=== PATIENT | female | born 1970 | race Caucasian/White ===

== ENCOUNTER 2019-05-17 09:15 | Outpatient (CLI) | payer BC, MEDICAID, SELFPAY ==
[2019-05-17 10:25] LABS: Albumin Level 4.4 g/dL (3.5-5.1); Blood Urea Nitrogen 7 mg/dL (7-17); Calcium 9.2 mg/dL (8.4-10.2); Carbon Dioxide 22 mmol/L (22-30); Chloride 113 mmol/L (98-107); Estimated Glomerular Filt Rate > 60; Glucose 90 mg/dL (65-105); Phosphorus 3.1 mg/dL (2.5-4.5); Potassium 3.9 mmol/L (3.4-5.0); Sodium 141 mmol/L (137-145)
[2019-05-17 10:34] LABS: Parathyroid Intact 88.2 pg/mL (7.5-53.5)
[2019-05-17 10:53] LABS: Vitamin D 25 Hydroxy 20.6 ng/mL
[2019-05-17 11:22] LABS: Folic Acid 5.5 ng/mL (2.76->20)
== END 2019-05-17 09:16 | disposition home or self-care (01) ==
PROVIDERS: PCP Physician Assistant; Visit Provider Internal Medicine Endocrinology, Diabetes & Metabolism
DX: E55.9 Vitamin D deficiency, unspecified (principal); M85.80 Other specified disorders of bone density and structure, unspecified site; K21.9 Gastro-esophageal reflux disease without esophagitis; K86.1 Other chronic pancreatitis; K59.8 Other specified functional intestinal disorders; F50.02 Anorexia nervosa, binge eating/purging type
CPT/HCPCS: 36415; 80069; 82306; 82607; 82728; 82746; 83970

== ENCOUNTER 2019-05-26 00:32 | Day surgery (SDC) | payer BC, MEDICAID, SELFPAY ==
[2019-05-21 13:58] VITALS: BMI 28.5
[2019-05-26 12:12] VITALS: BP 90/64; PULSE 64; RESP 16; TEMP 36.3; O2SAT 97
[2019-05-26] MEDS: LACTATED RINGERS 1,000 ML 150 ML IV CONT (12:17)
--- NOTE | 2019-05-26 12:55 | WPDANESEPPF ---
Anes - Initial Pre Proc Eval Procedure: Operation Date: 05/26/19 13:00 Proposed Procedures p Esophagogastroduodenoscopy - Rolando Julian DO Date/Time: 05/26/19 12:55 Surgeon: Rolando Julian DO Pre Op Diagnosis: GERD Patient Data Age: 48 Gender: F Height: 5 ft 3 in Weight: 73.6 kg Last Vital Signs Temp 97.3 F L 05/26/19 12:12 Pulse 64 05/26/19 12:12 Resp 16 05/26/19 12:12 BP 90/64 L 05/26/19 12:12 Pulse Ox 97 05/26/19 12:12 Allergies Allergy/AdvReac Type Severity Reaction Status Date / Time aspirin Allergy Unknown Rash Verified 05/26/19 12:21 azelastine Allergy Unknown Itching Verified 05/26/19 12:21 ceftriaxone Allergy Unknown Rash Verified 05/26/19 12:21 diclofenac Allergy Unknown Rash Verified 05/26/19 12:22 Iodinated Contrast Media Allergy Unknown Hives Verified 05/26/19 12:24 iodine Allergy Unknown Hives Verified 05/26/19 12:24 ioversol Allergy Unknown Hives Verified 05/26/19 12:24 meperidine Allergy Unknown Rash Verified 05/26/19 12:25 nitrofurantoin Allergy Unknown Rash Verified 05/26/19 12:26 silicone Allergy Unknown Rash Verified 05/26/19 12:26 Home Medications Medication Instructions Recorded Confirmed Type acyclovir 800 mg tablet 800 mg PO BID 01/17/19 05/26/19 History albuterol sulfate 90 mcg/actuation 1 puff INHALATION Q4H PRN 01/17/19 05/26/19 History aerosol inhaler calcium carbonate 500 mg (1,250 1 tablet PO DAILY 01/17/19 05/26/19 History mg)-vitamin D3 200 unit tablet cetirizine 10 mg tablet 10 mg PO DAILY 01/17/19 05/26/19 History cholecalciferol (vitamin D3) 50 2,000 unit PO DAILY 01/17/19 05/26/19 History mcg (2,000 unit) capsule clonazepam 0.5 mg tablet 0.5 mg PO DAILY 01/17/19 05/26/19 History dicyclomine 20 mg tablet 20 mg PO QID 01/17/19 05/26/19 History docusate sodium 100 mg capsule 100 mg PO DAILY 01/17/19 05/26/19 History ergocalciferol (vitamin D2) 1,250 50,000 unit PO WEEKLY 01/17/19 05/26/19 History mcg (50,000 unit) capsule estradiol 0.1 mg/24 hr semiweekly 1 patch TRANSDERM 2XW 01/17/19 05/26/19 History transdermal patch fluticasone propionate 50 2 spray NASAL DAILY 01/17/19 05/26/19 History mcg/actuation nasal spray,suspension lamotrigine 200 mg tablet 200 mg PO BID 01/17/19 05/26/19 History lansoprazole 30 mg capsule,delayed 30 mg PO DAILY 01/17/19 05/26/19 History release lifitegrast 5 % eye drops in a 1 drop EACH EYE Q12H 01/17/19 05/26/19 History dropperette linaclotide 290 mcg capsule 290 mcg PO QAM 01/17/19 05/26/19 History ntjjli-ddwyvryp-pneloih 2 cap PO TID cap 01/17/19 05/26/19 History 10,000-32,000-42,000 unit capsule,delayed rel melatonin 10 mg capsule 10 mg PO DAILY cap 01/17/19 05/26/19 History metoclopramide HCl 5 mg/5 mL oral 10 mg PO DAILY ml 01/17/19 05/26/19 History solution nystatin-triamcinolone 100,000 1 applic TOPICAL BID 01/17/19 05/26/19 History unit/g-0.1 % topical cream promethazine 12.5 mg tablet 12.5 mg PO QID 01/17/19 05/26/19 History sucralfate 1 gram tablet 1 gm PO BID tablet 01/17/19 05/26/19 History tamsulosin 0.4 mg capsule 0.4 mg PO DAILY 01/17/19 05/26/19 History topiramate 50 mg tablet 100 mg PO BID 01/17/19 05/26/19 History trazodone 100 mg tablet 100 mg PO BID 01/17/19 05/26/19 History trimethoprim 100 mg tablet 100 mg PO DAILY 01/17/19 05/26/19 History venlafaxine 75 mg tablet,extended 75 mg PO DAILY 01/17/19 05/26/19 History release 24 hr vit C 250 mg-E 200 unit-zinc 40 1 tablet PO BID 01/17/19 05/26/19 History mg-copper 1 mf-hzsaic-jbcgyf capsule tolnaftate 1 % topical powder 1 applic TOPICAL BID #45 gm 02/10/19 05/26/19 Rx ezetimibe 10 mg tablet 10 mg PO DAILY #90 tablet 02/24/19 05/26/19 Rx rosuvastatin 40 mg tablet 40 mg PO DAILY #90 tablet 02/24/19 05/26/19 Rx aripiprazole 10 mg tablet 10 mg PO DAILY 04/28/19 05/26/19 History fludrocortisone 0.1 mg tablet 0.1 mg PO BID #60 tablet 05/19/19 05/26/19 Rx olopatadine [Patanol] 1 drp OPHTHALMIC (EYE) BID
--- NOTE | 2019-05-26 13:04 | PM.IMHP ---
H&P: HPI History of Present Illness Chief complaint: GERD Narrative: Joy Oliveira is a 48 year old female His complaint of dysphagia. She has a history of previous gastric ulcers disease and GERD. She has chronic abdominal pain and multiple complaints. She is here for EGD and possible dilation. [facility] Past Medical History Medical History (Updated 05/26/19 @ 12:53 by Seng Whitaker MD) Anxiety Asthma Bipolar 1 disorder Seizure Social History Social History Smoking status: Never smoker Second hand tobacco smoke exposure: No Smoking end date: 03/19/93 Alcohol intake: never Gender identity (if verbalized by the patient): Female Meds Home Medications and Allergies Home Medications Medication Instructions Recorded Confirmed Type acyclovir 800 mg tablet 800 mg PO BID 01/17/19 05/26/19 History albuterol sulfate 90 mcg/actuation 1 puff INHALATION Q4H PRN 01/17/19 05/26/19 History aerosol inhaler calcium carbonate 500 mg (1,250 1 tablet PO DAILY 01/17/19 05/26/19 History mg)-vitamin D3 200 unit tablet cetirizine 10 mg tablet 10 mg PO DAILY 01/17/19 05/26/19 History cholecalciferol (vitamin D3) 50 2,000 unit PO DAILY 01/17/19 05/26/19 History mcg (2,000 unit) capsule clonazepam 0.5 mg tablet 0.5 mg PO DAILY 01/17/19 05/26/19 History dicyclomine 20 mg tablet 20 mg PO QID 01/17/19 05/26/19 History docusate sodium 100 mg capsule 100 mg PO DAILY 01/17/19 05/26/19 History ergocalciferol (vitamin D2) 1,250 50,000 unit PO WEEKLY 01/17/19 05/26/19 History mcg (50,000 unit) capsule estradiol 0.1 mg/24 hr semiweekly 1 patch TRANSDERM 2XW 01/17/19 05/26/19 History transdermal patch fluticasone propionate 50 2 spray NASAL DAILY 01/17/19 05/26/19 History mcg/actuation nasal spray,suspension lamotrigine 200 mg tablet 200 mg PO BID 01/17/19 05/26/19 History lansoprazole 30 mg capsule,delayed 30 mg PO DAILY 01/17/19 05/26/19 History release lifitegrast 5 % eye drops in a 1 drop EACH EYE Q12H 01/17/19 05/26/19 History dropperette linaclotide 290 mcg capsule 290 mcg PO QAM 01/17/19 05/26/19 History btxlca-eqlyovvu-reglkds 2 cap PO TID cap 01/17/19 05/26/19 History 10,000-32,000-42,000 unit capsule,delayed rel melatonin 10 mg capsule 10 mg PO DAILY cap 01/17/19 05/26/19 History metoclopramide HCl 5 mg/5 mL oral 10 mg PO DAILY ml 01/17/19 05/26/19 History solution nystatin-triamcinolone 100,000 1 applic TOPICAL BID 01/17/19 05/26/19 History unit/g-0.1 % topical cream promethazine 12.5 mg tablet 12.5 mg PO QID 01/17/19 05/26/19 History sucralfate 1 gram tablet 1 gm PO BID tablet 01/17/19 05/26/19 History tamsulosin 0.4 mg capsule 0.4 mg PO DAILY 01/17/19 05/26/19 History topiramate 50 mg tablet 100 mg PO BID 01/17/19 05/26/19 History trazodone 100 mg tablet 100 mg PO BID 01/17/19 05/26/19 History trimethoprim 100 mg tablet 100 mg PO DAILY 01/17/19 05/26/19 History venlafaxine 75 mg tablet,extended 75 mg PO DAILY 01/17/19 05/26/19 History release 24 hr vit C 250 mg-E 200 unit-zinc 40 1 tablet PO BID 01/17/19 05/26/19 History mg-copper 1 sm-jrazjz-voidie capsule tolnaftate 1 % topical powder 1 applic TOPICAL BID #45 gm 02/10/19 05/26/19 Rx ezetimibe 10 mg tablet 10 mg PO DAILY #90 tablet 02/24/19 05/26/19 Rx rosuvastatin 40 mg tablet 40 mg PO DAILY #90 tablet 02/24/19 05/26/19 Rx aripiprazole 10 mg tablet 10 mg PO DAILY 04/28/19 05/26/19 History fludrocortisone 0.1 mg tablet 0.1 mg PO BID #60 tablet 05/19/19 05/26/19 Rx olopatadine [Patanol] 1 drp OPHTHALMIC (EYE) BID 05/21/19 05/26/19 History ondansetron HCl [Zofran] 8 mg PO Q8H PRN 05/21/19 05/26/19 History Allergies Allergy/AdvReac Type Severity Reaction Status Date / Time aspirin Allergy Unknown Rash Verified 05/26/19 12:21 azelastine Allergy Unknown Itching Verified 05/26/19 12:21 ceftriaxone Allergy Unknown Rash Verified 05/26/19 12:21 diclofenac Allergy Unkno
[2019-05-26 13:18] VITALS: BP 97/61; PULSE 68; RESP 21; O2SAT 94
[2019-05-26 13:28] VITALS: BP 96/55; PULSE 69; RESP 14; O2SAT 98
[2019-05-26 13:38] VITALS: BP 96/60; PULSE 59; RESP 20; O2SAT 97
--- NOTE | 2019-05-28 12:50 | CONS_ITS ---
DATE OF CONSULTATION: HISTORY OF PRESENT ILLNESS: Patient of Dr. Julian. HISTORY: This 48-year-old lady has been admitted to [facility] under the care of Dr. Rolando Julian, for the complaint of dysphagia in addition to the history of gastric ulcer, GERD, and chronic recurrent abdominal pain. The patient was here mainly for the EGD and possible dilatation. She does carry the diagnoses of anxiety, asthma, bipolar 1 disorder, and seizure disorder. MEDICATIONS: She has been taking multiple medications as outlined. ALLERGIES: IN ADDITION TO THE MULTIPLE ALLERGIES OUTLINED. PHYSICAL EXAMINATION: GENERAL: Revealed her to be awake, alert, cooperative, in no obvious acute distress. HEENT: Head normocephalic with no cranial bruit. Ear, nose, throat exam normal. NECK: Supple with no cervical bruit. No thyromegaly. No lymphadenopathy. HEART: Regular. LUNGS: Clear. ABDOMEN: Soft. NEUROLOGICAL: She is awake, alert, follows the instruction very well. Reported to me that she is blind. Pupils round, regular. Hodges of vision could not be checked. Extraocular movements are spontaneously full. There is no nystagmus. Facial sensation intact. Face symmetrical. Tongue midline. Uvula midline. Motor examination revealed her to have fairly symmetrical strength in upper and lower extremities with no evidence of drift. No evidence of increased tone and reflexes are sluggish. Plantars downgoing. PAST SURGICAL HISTORY: She has undergone multiple surgeries as outlined. PAST MEDICAL HISTORY: Has history of multiple medical problems as outlined. IMAGING DATA: She has had a head CT scan, which is negative. Chest, abdominal, and pelvic CT scan also revealed only bilateral nephrolithiasis. There is small supraumbilical fat-containing hernia. EKG with ST wave elevation. EKG with normal rhythm. Neurology consultation has been obtained for the complaint of dizziness, which she reported to me. She feels dizzy every now and then and she feels unable to maintain the balance. I will obtain the EMG nerve conduction study as an outpatient and further recommendations will be made accordingly. HELLEN BHATT M.D. FRAMING MILL OPERATOR HELPER FRAMING MILL OPERATOR HELPER D I MT: Nathan
== END 2019-05-26 13:40 | disposition home or self-care (01) ==
PROVIDERS: PCP Physician Assistant; Visit Provider Internal Medicine Gastroenterology
PROC: 0DJ08ZZ Inspection of Upper Intestinal Tract, Via Natural or Artificial Opening Endoscopic (ICD-10-PCS; CPT 43235; principal; 2019-05-26 13:00)
DX: K29.50 Unspecified chronic gastritis without bleeding (principal); R13.10 Dysphagia, unspecified; K21.9 Gastro-esophageal reflux disease without esophagitis; Z87.11 Personal history of peptic ulcer disease; J45.909 Unspecified asthma, uncomplicated; G40.909 Epilepsy, unspecified, not intractable, without status epilepticus; F31.9 Bipolar disorder, unspecified; F41.9 Anxiety disorder, unspecified; Z79.82 Long term (current) use of aspirin
CPT/HCPCS: 43239; 43450; 87081; J2704; J7120

== ENCOUNTER 2019-05-27 16:31 | Observation (INO) | payer BC, MEDICAID, SELFPAY ==
[2019-05-27] VITALS (10 sets, daily range): BP systolic 97–125; BP diastolic 55–77; PULSE 67–124; RESP 13–20; TEMP 36.8–36.9; O2SAT 96–98; BMI 29.0
--- NOTE | ~2019-05-27 | CT_ITS ---
EXAMINATION: CT brain wo con EXAM DATE: 05/27/2019 20:22 INDICATION: Dizziness. EGD yesterday. Abdominal pain. TECHNIQUE: Spiral CT of the head was performed without contrast. Axial, coronal and sagittal images were reviewed. The dose-length product (DLP) for this examination was 605.33 mGy-cm. The exposure w as tailored according to patient size, and iterative reconstruction (ASIR) was used as additional dos e reduction technique. Comparison is made to prior examination from 09/16/2014. FINDINGS: There is no acute intraparenchymal hemorrhage. No evidence of intraparenchymal brain mass lesion. No evidence of acute infarction. Please note that initial head CT has limited sensitivity f or small or acute infarctions. There is cavum vergae and cavum septum pellucidum. There is perivent ricular and subcortical hypodensity, nonspecific but probably related to small vessel ischemic diseas e. There is prominence of the sulci and ventricles related to cerebral atrophy. There is intracra nial carotid arteriosclerosis. There are no extra-axial collections. There is no mass effect or mid line shift. The orbits are unremarkable. Soft tissue is unremarkable. The visualized sinuses and m astoid air cells are well aerated. IMPRESSION: 1. No acute intracranial findings. 2. Chronic age related findings. Reviewed, dictated and finalized at location A.
--- NOTE | ~2019-05-27 | US_ITS ---
EXAMINATION: US carotid duplex BI DATE: 05/28/2019 14:45 INDICATION: Dizziness. TECHNIQUE: Grayscale, color Doppler, and pulsed Doppler images of the cervical carotid arteries were obtained. The degree of vessel stenosis is placed in one of the following categories: normal, <50%, 5 0-69%, >=70% but less than near-occlusion, near-occlusion, or total occlusion. Note that percent sten osis relative to normal distal artery lumen diameter is indirectly measured from velocity measurement s as described by Arun, et al. Radiology 2003; 229:340-346. COMPARISON: Ultrasound 09/22/2014 FINDINGS: RIGHT: The right common carotid artery (CCA) peak systolic velocity (PSV) is 114 cm/s. The right internal ca rotid artery (ICA) PSV is 93 cm/s. The right ICA end-diastolic velocity (EDV) is 29 cm/s. The right I CA/CCA PSV ratio is 0.8. Grayscale and color Doppler images yield an estimate of 0% diameter reductio n from plaque in the ICA. There is antegrade flow in the right vertebral artery. LEFT: The left CCA PSV is 97 cm/s. The left ICA PSV is 79 cm/s. The left ICA EDV is 32 cm/s. The left ICA/C CA PSV ratio is 0.8. Grayscale and color Doppler images yield an estimate of 0% diameter reduction fr om plaque in the ICA. There is antegrade flow in the left vertebral artery. IMPRESSION: 1. Normal internal carotid arteries. Reviewed, dictated and finalized at location A.
--- NOTE | ~2019-05-27 | CT_ITS ---
EXAMINATION: CT chest abdomen pelvis wo con EXAM DATE: 05/27/2019 20:22 INDICATION: Abdominal distention, pain. Had EGD yesterday. Dizziness. TECHNIQUE: Spiral CT of the chest, abdomen and pelvis was performed without contrast. Axial, wheeler l and sagittal images were reviewed. Coronal maximum intensity pixel images of chest reviewed. The dose-length product (DLP) for this examination was 1148.05 mGy-cm. The exposure was tailored accordi ng to patient size (auto mA exposure control), and iterative reconstruction (ASIR) was used as additi onal dose reduction technique. Comparison is made to prior examination from 08/31/2018. FINDINGS: CHEST: Left basilar linear atelectasis. There are no pleural or pericardial effusions. Tracheobro nchial tree is patent. There is no mediastinal, hilar or axillary lymphadenopathy. There is no pn eumothorax. Heart normal in size. No evidence of coronary arterial calcification. ABDOMEN PELVIS: Colonic interposition. The liver, spleen, adrenal glands and pancreas are unremarkab le. Gallbladder is unremarkable. No biliary obstruction. Sizable bilateral nephrolithiasis. There i s exophytic left renal fluid density lesion consistent with cyst measuring 1.3 cm. No obstructing ure teral stones. The uterus is not identified and has likely been surgically resected. The bladder is u nremarkable. There is no retroperitoneal or pelvic lymphadenopathy. Small supraumbilical fat-conta ining hernia. The appendix is not positively visualized. There is no pericecal inflammatory change to suggest appe ndicitis. The stomach and small bowel are unremarkable. There is expected amount of colonic stool. No free intraperitoneal gas. There are no osteoblastic or osteolytic lesions identified. IMPRESSION: 1. No acute intra-abdominal findings. 2. Bilateral nephrolithiasis. 3. Linear left basilar atelectasis. 4. Small supraumbilical fat-containing hernia. Reviewed, dictated and finalized at location A.
--- NOTE | ~2019-05-27 | MR_ITS ---
EXAMINATION: MR brain/brain stem wo/w con DATE: 05/28/2019 12:45 INDICATION: Dizziness. TECHNIQUE: Magnetic resonance imaging (MRI) of the brain and brainstem was performed without and with 14 mL MultiHance intravenous contrast. Sequences included sagittal and axial T1-weighted FSE, axial diffusion-weighted FS EPI, axial T2*-weighted GRE, axial T2-weighted FLAIR Propeller, and axial T2-we ighted Propeller. Postcontrast sequences included axial and coronal T1-weighted FSE. Apparent diffusi on coefficient (ADC) maps were created. COMPARISON: Brain MRI 08/28/2015 FINDINGS: There are scattered areas of nonspecific increased T2-weighted signal intensity in the cere bral white matter, which is within normal limits for the patient's age. There is no intracranial hemo rrhage, acute infarction, or abnormal intracranial mass lesion. The ventricles are normal in size. Ca vum septum pellucidum and vergae are noted. There is mild mucosal thickening in the ethmoid sinuses. The orbits are normal. The mastoid air cells are normal. IMPRESSION: 1. Normal aging brain. Reviewed, dictated and finalized at location A. IMPRESSION: 1. Normal aging brain.
--- NOTE | 2019-05-27 16:57 | ECG_ITS ---
Measurements Intervals [place] Rate: 71 P: 163 MT: 138 QRS: 123 QRSD: 94 T: 122 QT: 373 QTc: 406 Interpretive Statements SINUS RHYTHM CONSIDER LIMB LEAD REVERSAL LOW VOLTAGE- LIMB LEADS BORDERLINE ST-T WAVE ABNORMALITY- INFERIOR LEADS BASELINE ARTIFACT- I, II, III, AVR, AVL, AVF, V1 BORDERLINE ECG Electronically Signed On 05-28-2019 7:02:31 CDT by Adi Patel D.O.
[2019-05-27 17:11] LABS: Basophils Percent Auto 0.6 % (0.2-1.2); Eosinophils Absolute Auto 0.1 K/mm3 (0-0.3); Eosinophils Percent Auto 0.8 % (0-4.4); Hematocrit 47.2 % (37.0-47.0); Hemoglobin 15.3 g/dL (12.0-15.0); Immature Granulocyte Absolute 0.03 K/mm3 (0.00-0.031); Immature Granulocyte Percent A 0.4 % (0-0.5); Lymphocytes Absolute Auto 1.15 K/mm3 (0.9-3.2); Lymphocytes Percent Auto 16.2 % (18.3-44.2); Mean Corpuscular HGB Conc 32.4 g/dl (32-36); Mean Corpuscular Hemoglobin 29.4 pg (26-34); Mean Corpuscular Volume 90.6 fl (80-100); Mean Platelet Volume 9.2 fl (7.4-10.4); Monocytes Absolute Auto 0.4 K/mm3 (0.1-0.6); Monocytes Percent Auto 6.1 % (2.6-8.5); Neutrophils Absolute Auto 5.4 K/mm3 (1.3-6.7); Neutrophils Percent Auto 75.9 % (45.5-73.1); Platelet Count Result 314 k/mm3 (150-375); Red Blood Count 5.21 M/mm3 (4.2-5.4); Red Cell Distribution Width 12.7 % (11.5-14.5); White Blood Count 7.1 K/mm3 (4.5-10.0)
[2019-05-27 17:24] LABS: Blood Urea Nitrogen 5 mg/dL (7-17); Calcium 9.7 mg/dL (8.4-10.2); Carbon Dioxide 21 mmol/L (22-30); Chloride 113 mmol/L (98-107); Estimated CRCL calculation 81 ml/min; Estimated Glomerular Filt Rate > 60; Glucose 101 mg/dL (65-105); Potassium 3.9 mmol/L (3.4-5.0); Sodium 141 mmol/L (137-145)
--- NOTE | 2019-05-27 19:18 | ED.SYNCOPE ---
HPI - Syncope General Chief Complaint: Dizziness Stated Complaint: ABD PAIN, N/V S/P EGD Time Seen by Provider: 05/27/19 19:14 Source: patient and RN notes reviewed Mode of arrival: wheelchair Limitations: no limitations History of Present Illness HPI narrative: A 48 y/o female presents to the ED with no fevers, dysuria, feels clammy and mildly distended EGD by Dr. Lewis yesterday and esophageal dilation ABD pain stabbing N/V, dizziness, near syncope legally blind epigastric tenderness Related Data Home Medications Medication Instructions Recorded Confirmed acyclovir 800 mg tablet 800 mg PO BID 01/17/19 05/26/19 albuterol sulfate 90 mcg/actuation 1 puff INHALATION Q4H PRN 01/17/19 05/26/19 aerosol inhaler calcium carbonate 500 mg (1,250 1 tablet PO DAILY 01/17/19 05/26/19 mg)-vitamin D3 200 unit tablet cetirizine 10 mg tablet 10 mg PO DAILY 01/17/19 05/26/19 cholecalciferol (vitamin D3) 50 2,000 unit PO DAILY 01/17/19 05/26/19 mcg (2,000 unit) capsule clonazepam 0.5 mg tablet 0.5 mg PO DAILY 01/17/19 05/26/19 dicyclomine 20 mg tablet 20 mg PO QID 01/17/19 05/26/19 docusate sodium 100 mg capsule 100 mg PO DAILY 01/17/19 05/26/19 ergocalciferol (vitamin D2) 1,250 50,000 unit PO WEEKLY 01/17/19 05/26/19 mcg (50,000 unit) capsule estradiol 0.1 mg/24 hr semiweekly 1 patch TRANSDERM 2XW 01/17/19 05/26/19 transdermal patch fluticasone propionate 50 2 spray NASAL DAILY 01/17/19 05/26/19 mcg/actuation nasal spray,suspension lamotrigine 200 mg tablet 200 mg PO BID 01/17/19 05/26/19 lansoprazole 30 mg capsule,delayed 30 mg PO DAILY 01/17/19 05/26/19 release lifitegrast 5 % eye drops in a 1 drop EACH EYE Q12H 01/17/19 05/26/19 dropperette linaclotide 290 mcg capsule 290 mcg PO QAM 01/17/19 05/26/19 uvygai-ynbhwslx-cmjmgnx 2 cap PO TID cap 01/17/19 05/26/19 10,000-32,000-42,000 unit capsule,delayed rel melatonin 10 mg capsule 10 mg PO DAILY cap 01/17/19 05/26/19 metoclopramide HCl 5 mg/5 mL oral 10 mg PO DAILY ml 01/17/19 05/26/19 solution nystatin-triamcinolone 100,000 1 applic TOPICAL BID 01/17/19 05/26/19 unit/g-0.1 % topical cream promethazine 12.5 mg tablet 12.5 mg PO QID 01/17/19 05/26/19 sucralfate 1 gram tablet 1 gm PO BID tablet 01/17/19 05/26/19 tamsulosin 0.4 mg capsule 0.4 mg PO DAILY 01/17/19 05/26/19 topiramate 50 mg tablet 100 mg PO BID 01/17/19 05/26/19 trazodone 100 mg tablet 100 mg PO BID 01/17/19 05/26/19 trimethoprim 100 mg tablet 100 mg PO DAILY 01/17/19 05/26/19 venlafaxine 75 mg tablet,extended 75 mg PO DAILY 01/17/19 05/26/19 release 24 hr vit C 250 mg-E 200 unit-zinc 40 1 tablet PO BID 01/17/19 05/26/19 mg-copper 1 yz-prlwbv-podvcq capsule aripiprazole 10 mg tablet 10 mg PO DAILY 04/28/19 05/26/19 olopatadine [Patanol] 1 drp OPHTHALMIC (EYE) BID 05/21/19 05/26/19 ondansetron HCl [Zofran] 8 mg PO Q8H PRN 05/21/19 05/26/19 Allergies Allergy/AdvReac Type Severity Reaction Status Date / Time aspirin Allergy Unknown Rash Verified 05/26/19 12:21 azelastine Allergy Unknown Itching Verified 05/26/19 12:21 ceftriaxone Allergy Unknown Rash Verified 05/26/19 12:21 diclofenac Allergy Unknown Rash Verified 05/26/19 12:22 Iodinated Contrast Media Allergy Unknown Hives Verified 05/26/19 12:24 iodine Allergy Unknown Hives Verified 05/26/19 12:24 ioversol Allergy Unknown Hives Verified 05/26/19 12:24 meperidine Allergy Unknown Rash Verified 05/26/19 12:25 nitrofurantoin Allergy Unknown Rash Verified 05/26/19 12:26 silicone Allergy Unknown Rash Verified 05/26/19 12:26 PMFSH Past Medical History Medical History (Updated 05/26/19 @ 12:53 by Seng Whitaker MD) Anxiety Asthma Bipolar 1 disorder Seizure Social History Social History Smoking status: Never smoker Second hand tobacco smoke exposure: No Smoking end date: 03/19/93 Alcohol intake: never Gender identity (if verbalized by the patient): Fema
--- NOTE | 2019-05-27 19:24 | ED.ABDPAIN ---
HPI - Abdominal Pain General Chief Complaint: Dizziness Stated Complaint: ABD PAIN, N/V S/P EGD Time Seen by Provider: 05/27/19 19:14 Source: patient and RN notes reviewed Mode of arrival: ambulatory Limitations: no limitations History of Present Illness HPI narrative: A 48 y/o female presents to the ED with stabbing epigastric ABD pain beginning this morning and dizziness. She states that she had a EGD and esophageal dilation done here yesterday. She reports associated N/V, dizziness, ABD distention, and clamminess. She denies any fevers, chills, dysuria, numbness, CP, or SOB. Patient states that she feels that the room is spinning and has been unable to ambulate. Patient is clinically fine, but states she is typically able to ambulate independently without difficulty. Patient denies any numbness in the lower extremities. No dysuria or hematuria. No fever. MD elicited complaint: abdominal pain Pertinent past history: gastrointestinal bleeding, kidney stones and past UTI Onset (ago): hour(s) (this morning) Location: epigastric Quality: stabbing Context: confirms recent surgery/procedure Associated symptoms: nausea, vomiting and other (dizziness, ABD distention, and clamminess) Related Data Home Medications Medication Instructions Recorded Confirmed acyclovir 800 mg tablet 800 mg PO BID 01/17/19 05/26/19 albuterol sulfate 90 mcg/actuation 1 puff INHALATION Q4H PRN 01/17/19 05/26/19 aerosol inhaler calcium carbonate 500 mg (1,250 1 tablet PO DAILY 01/17/19 05/26/19 mg)-vitamin D3 200 unit tablet cetirizine 10 mg tablet 10 mg PO DAILY 01/17/19 05/26/19 cholecalciferol (vitamin D3) 50 2,000 unit PO DAILY 01/17/19 05/26/19 mcg (2,000 unit) capsule clonazepam 0.5 mg tablet 0.5 mg PO DAILY 01/17/19 05/26/19 dicyclomine 20 mg tablet 20 mg PO QID 01/17/19 05/26/19 docusate sodium 100 mg capsule 100 mg PO DAILY 01/17/19 05/26/19 ergocalciferol (vitamin D2) 1,250 50,000 unit PO WEEKLY 11/01/19 03/09/20 mcg (50,000 unit) capsule estradiol 0.1 mg/24 hr semiweekly 1 patch TRANSDERM 2XW 01/17/19 05/26/19 transdermal patch fluticasone propionate 50 2 spray NASAL DAILY 01/17/19 05/26/19 mcg/actuation nasal spray,suspension lamotrigine 200 mg tablet 200 mg PO BID 01/17/19 05/26/19 lansoprazole 30 mg capsule,delayed 30 mg PO DAILY 01/17/19 05/26/19 release lifitegrast 5 % eye drops in a 1 drop EACH EYE Q12H 01/17/19 05/26/19 dropperette linaclotide 290 mcg capsule 290 mcg PO QAM 01/17/19 05/26/19 hupglo-qqmzgahf-fluhpdp 2 cap PO TID cap 01/17/19 05/26/19 10,000-32,000-42,000 unit capsule,delayed rel melatonin 10 mg capsule 10 mg PO DAILY cap 01/17/19 05/26/19 metoclopramide HCl 5 mg/5 mL oral 10 mg PO DAILY ml 01/17/19 05/26/19 solution nystatin-triamcinolone 100,000 1 applic TOPICAL BID 01/17/19 05/26/19 unit/g-0.1 % topical cream promethazine 12.5 mg tablet 12.5 mg PO QID 01/17/19 05/26/19 sucralfate 1 gram tablet 1 gm PO BID tablet 01/17/19 05/26/19 tamsulosin 0.4 mg capsule 0.4 mg PO DAILY 01/17/19 05/26/19 topiramate 50 mg tablet 100 mg PO BID 01/17/19 05/26/19 trazodone 100 mg tablet 100 mg PO BID 01/17/19 05/26/19 trimethoprim 100 mg tablet 100 mg PO DAILY 01/17/19 05/26/19 venlafaxine 75 mg tablet,extended 75 mg PO DAILY 01/17/19 05/26/19 release 24 hr vit C 250 mg-E 200 unit-zinc 40 1 tablet PO BID 01/17/19 05/26/19 mg-copper 1 sy-szyznx-pkivhu capsule aripiprazole 10 mg tablet 10 mg PO DAILY 04/28/19 05/26/19 olopatadine [Patanol] 1 drp OPHTHALMIC (EYE) BID 05/21/19 05/26/19 ondansetron HCl [Zofran] 8 mg PO Q8H PRN 05/21/19 05/26/19 acyclovir 05/27/19 Allergies Allergy/AdvReac Type Severity Reaction Status Date / Time aspirin Allergy Unknown Rash Verified 05/27/19 20:38 azelastine Allergy Unknown Itching Verified 05/27/19 20:38 ceftriaxone Allergy Unknown Rash Verified 05/27/19 20:38 diclofenac Allergy Unknown Rash Verified 05/27/19 20:38 Iodinated Contrast Media Allergy Unknown Hives Veri
[2019-05-27] MEDS: ONDANSETRON INJ 4 MG/2 ML VIAL IV PUSH ×2 (19:53→23:12)
[2019-05-27] MEDS: MORPHINE SULFATE 4 MG/ML INJ IV PUSH ×2 (19:56→21:12)
[2019-05-27] MEDS: DEXTROSE 5%/0.45% SOD CHL 1,000 ML 100 ML IV CONT (19:57)
[2019-05-27] MEDS: SODIUM CHLORIDE 0.9% IV 1,000 ML 999 ML IV CONT (20:00)
--- NOTE | 2019-05-27 20:00 | PC.NURSE ---
tech attempted to take pt to urinate. pt dizzy and unable to walk when standing up edp notified.
[2019-05-27 20:26] LABS: INR 0.9
[2019-05-27 20:27] LABS: Partial Thromboplastin Time 27.8 SECONDS (22.3-36.8)
[2019-05-27 20:27] LABS: Troponin I < 0.012 ng/mL (0.000-0.034)
[2019-05-27] MEDS: FAMOTIDINE 20 MG/2 ML VIAL IV PUSH (20:32)
[2019-05-27] MEDS: METOCLOPRAMIDE HCL INJ 10 MG/2 ML VIAL IV PUSH (21:11)
--- NOTE | 2019-05-27 22:56 | ADMGEN ---
This patient, Joy Oliveira, was admitted to [facility] Surg Room 326-02. Patient/family oriented to hospital policies and general routines including ID bracelet, bed and alarms, visiting hours, pain management, procedures, bathroom and other care routines, personal items, smoking policy, room service/diet, and visiting hours. Valuables list has been completed. Information on how to activate the Rapid Response Team has been discussed. Patient/Family are encouraged to report perceived risks to care and to ask questions if they do not understand what they are told or what they should do.
[2019-05-28] VITALS (10 sets, daily range): BP systolic 98–120; BP diastolic 52–62; PULSE 60–94; RESP 16–18; TEMP 36.6–36.8; O2SAT 95–98
[2019-05-28] MEDS: SODIUM CHLORIDE 0.9% IV 1,000 ML 125 ML IV CONT (02:08)
[2019-05-28] MEDS: ONDANSETRON INJ 4 MG/2 ML VIAL IV PUSH ×5 (04:59→21:31)
[2019-05-28] MEDS: CLONAZEPAM 0.5 MG TAB PO ×3 (06:11→19:36)
[2019-05-28] MEDS: DEXTROSE 5%/0.45% SOD CHL 1,000 ML 100 ML IV CONT ×2 (06:21→18:08)
--- NOTE | 2019-05-28 07:31 | PC.NURSE ---
Three calls placed to hospitalist, Dr. Barone to notify of patient's complaints of mid chest pain. Vital signs stable. Patient is sinus rhythm on the monitor. No acute distress noted. No return called received at this time.
[2019-05-28] MEDS: PANTOPRAZOLE SODIUM IV 40 MG VIAL IV PUSH (08:12)
--- NOTE | 2019-05-28 11:33 | CONS_ITS ---
This report was moved to the correct visit, [id number], on July 08, 2019. Original report was signed by Dr. Hellen Bhatt on May 29, 2019 at 1057. DATE OF CONSULTATION: HISTORY OF PRESENT ILLNESS: Patient of Dr. Julian. HISTORY: This 48-year-old lady has been admitted to [facility] under the care of Dr. Rolando Julian, for the complaint of dysphagia in addition to the history of gastric ulcer, GERD, and chronic recurrent abdominal pain. The patient was here mainly for the EGD and possible dilatation. She does carry the diagnoses of anxiety, asthma, bipolar 1 disorder, and seizure disorder. MEDICATIONS: She has been taking multiple medications as outlined. ALLERGIES: IN ADDITION TO THE MULTIPLE ALLERGIES OUTLINED. PHYSICAL EXAMINATION: GENERAL: Revealed her to be awake, alert, cooperative, in no obvious acute distress. HEENT: Head normocephalic with no cranial bruit. Ear, nose, throat exam normal. NECK: Supple with no cervical bruit. No thyromegaly. No lymphadenopathy. HEART: Regular. LUNGS: Clear. ABDOMEN: Soft. NEUROLOGICAL: She is awake, alert, follows the instruction very well. Reported to me that she is blind. Pupils round, regular. Hodges of vision could not be checked. Extraocular movements are spontaneously full. There is no nystagmus. Facial sensation intact. Face symmetrical. Tongue midline. Uvula midline. Motor examination revealed her to have fairly symmetrical strength in upper and lower extremities with no evidence of drift. No evidence of increased tone and reflexes are sluggish. Plantars downgoing. PAST SURGICAL HISTORY: She has undergone multiple surgeries as outlined. PAST MEDICAL HISTORY: Has history of multiple medical problems as outlined. IMAGING DATA: She has had a head CT scan, which is negative. Chest, abdominal, and pelvic CT scan also revealed only bilateral nephrolithiasis. There is small supraumbilical fat-containing hernia. EKG with ST wave elevation. EKG with normal rhythm. Neurology consultation has been obtained for the complaint of dizziness, which she reported to me. She feels dizzy every now and then and she feels unable to maintain the balance. I will obtain the EMG nerve conduction study as an outpatient and further recommendations will be made accordingly. HELLEN BHATT M.D. FREIGHT ELEVATOR ERECTOR FREIGHT ELEVATOR ERECTOR D I MT: [facility] Dictated By: Hellen Bhatt MD 05/28/19 1133 Transcribed Date/Time: 05/28/19 1246 Signed By: Hellen Bhatt MD 05/29/19 1057 [facility]
[2019-05-28] MEDS: NALOXONE HCL 0.4 MG/ML VIAL IV PUSH (11:52)
--- NOTE | 2019-05-28 12:13 | PC.NURSE ---
to MRI per stretcher
--- NOTE | 2019-05-28 13:26 | PM.IMHP ---
H&P: HPI History of Present Illness Chief complaint: dizziness Narrative: Date of visit 999 Joy Oliveira is a 48 year old white female with history of chronic abdominal complaints and gastroparesis with history of hypotension presented to the emergency with complaints of dizziness as if the room was spinning with epigastric pain. She had been nauseated also. EGD performed 05/25 with essentially unremarkable and dilatation of the distal esophagus was performed. She said her throat was little sore and can't noticed any improvement in swallowing at. She also relates she has had some ringing in her right year with no change in hearing and the dizziness improves when she lays on her left side. No recent URIs, fever, chills or cough. Review of Systems Review of Systems: Narrative: Constitutional hepatitis been following and weight stable prior to the present illness Eye no double vision but she is legally blind since having had zoster some 5 years ago Mouth mucosa normal Neck supple no adenopathy Pulmonary no increased shortness breath wheezing or cough CV occasional chest pain but cardiac catheterization 11/02 revealed normal coronary arteries GI chronic symptomatology had had feeding tube the past for gastroparesis but developed peptic disease and tube was removed. She now has frequent small feedings with copious amounts of fluid to overcome the gastroparesis Psych affect flat Neuro no history of seizures PMFSH Past Medical History Medical History (Updated 05/28/19 @ 13:38 by Jayce Cabrera MD) Abnormal uterine bleeding Ankle fracture Lt. Anorexia Anxiety Arthritis Asthma Bipolar 1 disorder Blind in both eyes Bowel obstruction Bronchitis Colitis Depression DM (diabetes mellitus) Endometriosis Fibroids Gastroparesis GERD (gastroesophageal reflux disease) Heart murmur History of angina History of esophageal dilatation History of GI bleed History of jejunostomy tube placement History of kidney stones History of melena History of pneumonia History of rectal polyps Hx of hiatal hernia Hx of migraines Hx of transient ischemic attack (TIA) Hx: UTI (urinary tract infection) Hypercholesteremia Hypotension, chronic IBS (irritable bowel syndrome) Osteoporosis Pancreatitis Seizure Seizures Shingles Ulcer Surgical History Surgical History (Updated 05/27/19 @ 20:13 by Flaquito Macdonald) H/O left wrist surgery History of ankle surgery Lt. History of appendectomy History of cholecystectomy History of esophagogastroduodenoscopy (EGD) History of hysterectomy History of lithotripsy History of oophorectomy MICHA. History of tonsillectomy Hx of CABG Hx of cardiac cath x2. Family History Family History Sibling Family history of migraine headaches Mother Family history of cardiovascular disease Father Family history of primary malignant neoplasm of liver Other Family history of alcoholism Family history of hypercholesterolemia Family history of liver disease Hypertension Social History Social History Smoking packs per day: 0.5 Smoking cigarettes per day: 10.0 Years smoked: 4 Smoking pack-years: 2.00 Smoking status: Former smoker Tobacco type: cigarettes Second hand tobacco smoke exposure: No Smoking end date: 03/19/93 Alcohol intake: never Substance use: never Substance use type: does not use Gender identity (if verbalized by the patient): Female Spiritual care concerns: No Agree to blood products: Yes Meds Home Medications and Allergies Home Medications Medication Instructions Recorded Confirmed Type albuterol sulfate 90 mcg/actuation 1 puff INHALATION Q4H PRN 01/17/19 05/28/19 History aerosol inhaler calcium carbonate 500 mg (1,250 1 tablet PO DAILY 01/17/19 05/28/19 History mg)-vitamin D3 200 unit tablet cetirizine 10 mg tablet 10 mg
[2019-05-28] MEDS: METOCLOPRAMIDE HCL 10 MG/10 ML SOLN UDC PO ×2 (15:12→21:18)
[2019-05-28] MEDS: DICYCLOMINE HCL 10 MG CAPSULE 20 MG PO (15:17)
[2019-05-28 15:40] LABS: Glucose Point of Care 98 (65-105)
[2019-05-28] MEDS: TAMSULOSIN HCL 0.4 MG CAPSULE PO (18:11)
[2019-05-28] MEDS: VENLAFAXINE HCL XR 75 MG CAP.ER.24H PO (18:12)
[2019-05-28] MEDS: TOPIRAMATE 100 MG TABLET PO (18:14)
[2019-05-28] MEDS: ACETAMINOPHEN 500 MG TABLET 1000 MG PO (19:36)
[2019-05-28] MEDS: CYANOCOBALAMIN INJ 1,000 MCG/ML VIAL 1000 MCG IM (19:36)
[2019-05-28] MEDS: ACYCLOVIR 400 MG TABLET 800 MG PO (21:17)
[2019-05-28] MEDS: MELATONIN 5 MG TABLET 10 MG PO (21:18)
[2019-05-28] MEDS: TRAZODONE HCL 50 MG TABLET 100 MG PO (21:18)
[2019-05-28] MEDS: ENOXAPARIN 40 MG/0.4 ML SYRINGE SUB-Q (21:18)
[2019-05-28] MEDS: SUCRALFATE 1 GM TABLET PO (21:18)
--- NOTE | 2019-05-28 21:37 | ADMGEN ---
This patient, Joy Oliveira, was admitted to 3 [facility] Surg Room 326-01. Patient/family oriented to hospital policies and general routines including ID bracelet, bed and alarms, visiting hours, pain management, procedures, bathroom and other care routines, personal items, smoking policy, room service/diet, and visiting hours. Valuables list has been completed. Information on how to activate the Rapid Response Team has been discussed. Patient/Family are encouraged to report perceived risks to care and to ask questions if they do not understand what they are told or what they should do.
[2019-05-29] VITALS (9 sets, daily range): BP systolic 95–99; BP diastolic 49–68; PULSE 50–76; RESP 16–20; TEMP 36.6–37.1; O2SAT 95–96
[2019-05-29] MEDS: CLONAZEPAM 0.5 MG TAB PO ×5 (00:43→23:36)
[2019-05-29] MEDS: ONDANSETRON INJ 4 MG/2 ML VIAL IV PUSH ×5 (05:36→22:43)
[2019-05-29 06:33] LABS: Basophils Percent Auto 0.5 % (0.2-1.2); Eosinophils Absolute Auto 0.2 K/mm3 (0-0.3); Eosinophils Percent Auto 3.4 % (0-4.4); Hematocrit 42.5 % (37.0-47.0); Hemoglobin 13.3 g/dL (12.0-15.0); Immature Granulocyte Absolute 0.03 K/mm3 (0.00-0.031); Immature Granulocyte Percent A 0.5 % (0-0.5); Lymphocytes Absolute Auto 1.56 K/mm3 (0.9-3.2); Lymphocytes Percent Auto 24.5 % (18.3-44.2); Mean Corpuscular HGB Conc 31.3 g/dl (32-36); Mean Corpuscular Hemoglobin 29.4 pg (26-34); Mean Corpuscular Volume 93.8 fl (80-100); Mean Platelet Volume 9.3 fl (7.4-10.4); Monocytes Absolute Auto 0.6 K/mm3 (0.1-0.6); Monocytes Percent Auto 9.2 % (2.6-8.5); Neutrophils Percent Auto 61.9 % (45.5-73.1); Platelet Count Result 230 k/mm3 (150-375); Red Blood Count 4.53 M/mm3 (4.2-5.4); White Blood Count 6.4 K/mm3 (4.5-10.0)
[2019-05-29 06:59] LABS: Calcium 8.7 mg/dL (8.4-10.2); Carbon Dioxide 18 mmol/L (22-30); Chloride 116 mmol/L (98-107); Estimated CRCL calculation 111 ml/min; Estimated Glomerular Filt Rate > 60; Glucose 96 mg/dL (65-105); Potassium 3.6 mmol/L (3.4-5.0); Sodium 138 mmol/L (137-145)
[2019-05-29 07:01] LABS: Blood Urea Nitrogen < 2 mg/dL (7-17)
[2019-05-29] MEDS: DEXTROSE 5%/0.45% SOD CHL 1,000 ML 100 ML IV CONT (07:33)
[2019-05-29] MEDS: ACETAMINOPHEN 500 MG TABLET 1000 MG PO ×2 (09:38→21:45)
[2019-05-29] MEDS: ARIPIPRAZOLE 10 MG TABLET PO (09:41)
[2019-05-29] MEDS: Linaclotide [Linzess] 145 MCG CAPSULE 290 EACH PO (09:42)
[2019-05-29] MEDS: METOCLOPRAMIDE HCL 10 MG/10 ML SOLN UDC PO ×2 (09:43→17:12)
[2019-05-29] MEDS: EZETIMIBE 10 MG TABLET PO (09:44)
[2019-05-29] MEDS: lamoTRIgine 100 MG TABLET 200 MG PO (09:45)
[2019-05-29] MEDS: TOPIRAMATE 100 MG TABLET PO ×2 (09:45→18:08)
[2019-05-29] MEDS: PANTOPRAZOLE SODIUM IV 40 MG VIAL IV PUSH (09:46)
[2019-05-29] MEDS: TAMSULOSIN HCL 0.4 MG CAPSULE PO (09:47)
[2019-05-29] MEDS: ROSUVASTATIN 10 MG TABLET 40 MG PO (09:48)
[2019-05-29] MEDS: TRIMETHOPRIM 100 MG TABLET PO (09:52)
[2019-05-29] MEDS: VENLAFAXINE HCL XR 75 MG CAP.ER.24H PO (09:52)
[2019-05-29] MEDS: DICYCLOMINE HCL 10 MG CAPSULE 20 MG PO (12:13)
--- NOTE | 2019-05-29 16:22 | PM.IMPN ---
Progress Note: A&P Assessment and Plan (1) Dizziness: Code(s): R42 - Dizziness and giddiness Status: Acute Assessment and Plan: By history appears to be vertiginous. Probably benign positional vertigo when she gets relief lying on her left side. B12 lower normal the end April at 291 so will give IM B12. MRI negative and carotid Doppler though occlusion PT and OT to see for ambulation (2) Nausea & vomiting: Qualifiers: Vomiting Intractability: intractable Vomiting type: unspecified Qualified Code(s): R11.2 - Nausea with vomiting, unspecified Code(s): R11.2 - Nausea with vomiting, unspecified Status: Acute Assessment and Plan: Partially 2nd to the vertigo partially 2nd to the chronic on going GI symptomatology. Continue your prokinetic medication and anti emetics (3) Bipolar 1 disorder: Code(s): F31.9 - Bipolar disorder, unspecified Status: Acute Assessment and Plan: Continue her usual medication (4) DVT prophylaxis: Code(s): Z29.9 - Encounter for prophylactic measures, unspecified Status: Acute Assessment and Plan: Lovenox Subjective Date/time seen: 05/29/19 16:22 Interval history: Date of visit 05/28. 48 year old white female with chronic GI complaints and hypotension admitted with symptoms of vertigo and malaise.. Has history of gastroparesis with emesis and was started determine how much is related to the vertigo versus her underlying GI problems.. Just had a upper GI endoscopy on the which was fairly unremarkable Exam Narrative: Exam Narrative: Blood pressure 100/50 pulse is 64 afebrile Pupils equal reactive to light sclera anicteric Lungs clear CV regular rate rhythm no murmurs Abdomen is soft nontender Extremities without edema good distal pulses Neuro alert no focal deficits but with her visual deficits hard to assess Integument no skin breakdown or rashes Objective Data Vital Signs Vital Signs: Vital Signs - 24 hr 05/28/19 20:00 05/28/19 22:00 05/29/19 00:00 Temperature 36.6 C Pulse Rate 94 60 60 Respiratory Rate 18 Blood Pressure 99/62 L Pulse Oximetry 96 05/29/19 04:00 05/29/19 06:00 05/29/19 08:00 Temperature 36.6 C Pulse Rate 57 L 76 50 L Respiratory Rate 20 Blood Pressure 95/68 L Pulse Oximetry 96 05/29/19 12:00 05/29/19 14:44 Temperature 37.1 C Pulse Rate 75 65 Respiratory Rate 16 Blood Pressure 99/49 L Pulse Oximetry 95 Intake/Output Intake/Output: Intake & Output 05/26/19 05/27/19 05/28/19 05/29/19 23:59 23:59 23:59 23:59 Intake Total 1000 2638 1983 Output Total 500 800 Balance 1000 2138 1183 Meds/Results Medications: Active Medications Generic Name Dose Route Start Last Admin Trade Name Freq PRN Reason Stop Dose Admin Acetaminophen 1,000 mg 05/28/19 19:06 05/29/19 09:38 Tylenol Tablet PO 1,000 mg Q6H PRN Administration Mild Pain (1-3) or Fever Acyclovir 800 mg 05/28/19 09:00 05/29/19 09:49 Zovirax Po PO Not Given BID RASHID Aripiprazole 10 mg 05/28/19 09:00 05/29/19 09:41 Abilify PO 10 mg DAILY RASHID Administration Clonazepam 0.5 mg 05/28/19 06:00 05/29/19 12:08 Klonopin Tablet PO 0.5 mg Q6HR RASHID Administration Dicyclomine HCl 20 mg 05/28/19 05:30 05/29/19 12:13 Bentyl Capsule PO 20 mg QID PRN Administration ABDOMINAL DISCOMFORT Diphenhydramine HCl 25 mg 05/28/19 10:56 Benadryl Cap PO Q6H PRN Itching Docusate Sodium 100 mg 05/28/19 09:00 05/29/19 09:46 Colace Capsule PO Not Given DAILY RASHID Ezetimibe 10 mg 05/28/19 09:00 05/29/19 09:44 Zetia PO 10 mg DAILY RASHID Administration Enoxaparin Sodium 40 mg 05/28/19 21:00 05/28/19 21:18 Lovenox SUB-Q 40 mg HS RASHID Administration Ergocalciferol 50,000 unit 06/02/19 09:00 Drisdol PO Mo@0900 RASHID Fludrocortisone Acetate 0.1 mg 05/28/19 09:00 05/29/19 09:46 Fl
[2019-05-29] MEDS: MECLIZINE HCL 25 MG TABLET PO ×2 (18:07→21:39)
[2019-05-29] MEDS: SUCRALFATE 1 GM TABLET PO ×2 (18:13→21:34)
[2019-05-29] MEDS: TRAZODONE HCL 50 MG TABLET 100 MG PO (21:33)
[2019-05-29] MEDS: MELATONIN 5 MG TABLET 10 MG PO (21:33)
[2019-05-29] MEDS: ENOXAPARIN 40 MG/0.4 ML SYRINGE SUB-Q (21:33)
[2019-05-30] VITALS (7 sets, daily range): BP systolic 90–105; BP diastolic 55–62; PULSE 57–86; RESP 16–18; TEMP 36.3–36.8; O2SAT 96–97
[2019-05-30] MEDS: DICYCLOMINE HCL 10 MG CAPSULE 20 MG PO ×2 (03:56→10:41)
[2019-05-30] MEDS: ONDANSETRON INJ 4 MG/2 ML VIAL IV PUSH ×2 (03:56→08:04)
[2019-05-30] MEDS: MECLIZINE HCL 25 MG TABLET PO ×2 (05:46→14:25)
[2019-05-30] MEDS: CLONAZEPAM 0.5 MG TAB PO ×3 (05:46→17:12)
[2019-05-30] MEDS: ACETAMINOPHEN 500 MG TABLET 1000 MG PO ×2 (06:33→12:34)
[2019-05-30 08:41] LABS: Blood Urea Nitrogen 4 mg/dL (7-17); Calcium 8.6 mg/dL (8.4-10.2); Carbon Dioxide 22 mmol/L (22-30); Chloride 114 mmol/L (98-107); Estimated CRCL calculation 82 ml/min; Estimated Glomerular Filt Rate > 60; Glucose 88 mg/dL (65-105); Potassium 3.6 mmol/L (3.4-5.0); Sodium 141 mmol/L (137-145)
[2019-05-30] MEDS: SUCRALFATE 1 GM TABLET PO ×3 (09:54→16:45)
[2019-05-30] MEDS: ARIPIPRAZOLE 10 MG TABLET PO (09:58)
[2019-05-30] MEDS: OPTI-GEN TAB 1 TABLET PO ×2 (09:58→16:45)
[2019-05-30] MEDS: TRIMETHOPRIM 100 MG TABLET PO (09:58)
[2019-05-30] MEDS: FLUDROCORTISONE ACETATE 0.1 MG TABLET PO ×2 (09:58→16:44)
[2019-05-30] MEDS: VENLAFAXINE HCL XR 75 MG CAP.ER.24H PO (09:58)
[2019-05-30] MEDS: METOCLOPRAMIDE HCL 10 MG/10 ML SOLN UDC PO ×2 (09:59→16:45)
[2019-05-30] MEDS: ROSUVASTATIN 10 MG TABLET 40 MG PO (09:59)
[2019-05-30] MEDS: EZETIMIBE 10 MG TABLET PO (10:00)
[2019-05-30] MEDS: lamoTRIgine 100 MG TABLET 200 MG PO ×2 (10:00→16:44)
[2019-05-30] MEDS: Linaclotide [Linzess] 145 MCG CAPSULE 290 EACH PO (10:01)
[2019-05-30] MEDS: ACYCLOVIR 400 MG TABLET 800 MG PO ×2 (10:02→16:44)
[2019-05-30] MEDS: LORATADINE 10 MG TABLET PO (10:28)
[2019-05-30] MEDS: PANTOPRAZOLE SODIUM IV 40 MG VIAL IV PUSH (10:28)
[2019-05-30] MEDS: TOPIRAMATE 100 MG TABLET PO ×2 (10:29→16:46)
[2019-05-30] MEDS: TOLNAFTATE 1% POWDER 45 GM BTL 1 APPLIC TOPICAL (10:29)
[2019-05-30] MEDS: TAMSULOSIN HCL 0.4 MG CAPSULE PO (12:12)
[2019-05-30] MEDS: ONDANSETRON HCL ODT 4 MG TABLET PO ×2 (12:12→16:39)
--- NOTE | 2019-05-30 18:19 | PM.DS ---
DS: Diagnosis Admitting Diagnosis Admitting Diagnosis: Dizziness and giddiness Discharge Diagnosis (1) Dizziness: Code(s): R42 - Dizziness and giddiness Status: Acute Assessment and Plan: By history appears to be vertiginous. Probably benign positional vertigo when she gets relief lying on her left side. B12 lower normal the end April at 291 so gave IM B12 1000 microgram. MRI negative and carotid Doppler no occlusion PT and OT saw for ambulation TMs and ear canals were clear and will continue meclezine at home (2) Nausea & vomiting: Qualifiers: Vomiting Intractability: intractable Vomiting type: unspecified Qualified Code(s): R11.2 - Nausea with vomiting, unspecified Code(s): R11.2 - Nausea with vomiting, unspecified Status: Acute Assessment and Plan: Partially 2nd to the vertigo partially 2nd to the chronic on going GI symptomatology. Continue your prokinetic medication and anti emetics EGD 05/25 unremakable (3) Bipolar 1 disorder: Code(s): F31.9 - Bipolar disorder, unspecified Status: Acute Assessment and Plan: Continue her usual medication DS: Summary Hospital Course Hospital Course: 48-year-old white female with chronic GI problems and orthostasis with recurrent abdominal pain and emesis with gastro paresis presented with increasing nausea and dizziness which was vertiginous. MR scan and carotid Doppler were unremarkable. She was started on meclizine and given Zofran. B12 level was slightly low last month at 291 so received 1000 microgram IM also. She was still complaining of dizziness nausea is time of discharge but was up with minimal assistance from PT and able to keep liquids and some solids down. 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 health will be following DS: Data Data Completed and Pending Labs on day of discharge: Labs from last 24 hours 05/30/19 08:20 Sodium 141 Potassium 3.6 Chloride 114 H Carbon Dioxide 22 BUN 4 L Creatinine 0.70 Estim Creat Clear Calc 82 Estimated GFR > 60 Glucose 88 Calcium 8.6 Discharge Plan Discharge Attending physician on discharge: Jayce Cabrera Consulting providers: Kilo Brumfield Discharging Clinician: Jayce Cabrera Patient Disposition: Home, Self-Care Activity: as tolerated Diet: as tolerated Discharge Instructions: Per Care Coordination Patient is arranged to have [facility] for physical therapy and occupational therapy [phone]. RN please fax completed discharge instructions to [phone] Patient Instructions: Pain Management (DC), Near Syncope (DC) Stand Alone Forms: General Discharge Information Follow-up/Referrals: Ramana Lieberman PA-C [Primary Care Provider] - 2 Weeks Discharge Medications: New meclizine 25 mg tablet 25 mg PO TID PRN (Reason: dizziness) Qty: 30 RF: 0 Continued aripiprazole [Abilify] 10 mg tablet 10 mg PO DAILY RF: 0 ondansetron HCl [Zofran] 8 mg Tablet 8 mg PO Q8H PRN (Reason: Nausea) RF: 0 acyclovir 800 mg tablet 800 mg PO BID RF: 0 rizatriptan 10 mg Tablet,Disintegrating 10 mg translingual PRN RF: 0 clonazepam 0.5 mg tablet 0.5 mg PO Q6H RF: 0 docusate sodium [Colace] 100 mg capsule 100 mg PO DAILY RF: 0 dicyclomine 20 mg tablet 20 mg
== END 2019-05-30 17:30 | disposition home health service (06) ==
LOC: ANHED 21:37 → ANH3MEDSUR 05-28 03:52
PROVIDERS: Emergency Medicine; Admitting Provider Internal Medicine; Emergency Provider Emergency Medicine; PCP Physician Assistant; Visit Provider Internal Medicine
DX: R42 Dizziness and giddiness (principal); E53.8 Deficiency of other specified B group vitamins; R11.2 Nausea with vomiting, unspecified; F31.9 Bipolar disorder, unspecified; I95.89 Other hypotension; E11.43 Type 2 diabetes mellitus with diabetic autonomic (poly)neuropathy; K31.84 Gastroparesis; H54.7 Unspecified visual loss; K21.9 Gastro-esophageal reflux disease without esophagitis; E78.00 Pure hypercholesterolemia, unspecified; Z79.899 Other long term (current) drug therapy; Z87.891 Personal history of nicotine dependence; Z88.8 Allergy status to other drugs, medicaments and biological substances
CPT/HCPCS: 36415; 51701; 70450; 70553; 71250; 74176; 80048; 81025; 84484; 85025; 85610; 85730; 87081; 93005; 93880; 96361; 96372; 96374; 96375; 96376; 97110; 97161; 97165; 97530; 97535; 99285; A9270; A9577; C9113; G0378; J1650; J2270; J2310; J2405; J2765; J3010; J3420; J7030

== ENCOUNTER 2019-06-09 12:49 | Emergency (ER) | payer BC, MEDICAID, SELFPAY ==
--- NOTE | ~2019-06-09 | XR_ITS ---
EXAMINATION: XR chest 1V portable 06/09/2019 13:33 INDICATION: Cough with congestion PROCEDURE: 2 view chest COMPARISON: Comparison to multiple prior studies sequentially, with oldest reviewed study dated 07/13. FINDINGS: The lungs are clear. The cardiomediastinal silhouette is within normal limits. There are no pleural effusions. There is no pneumothorax suspected. IMPRESSION: 1: NO ACUTE CARDIOPULMONARY DISEASE. Reviewed, dictated and finalized at location A.
[2019-06-09 13:00] VITALS: BP 102/65; PULSE 83; RESP 16; TEMP 36.4; O2SAT 98
--- NOTE | 2019-06-09 13:12 | ECG_ITS ---
Measurements Intervals Garibaldi Rate: 78 P: 62 TX: 153 QRS: 60 QRSD: 86 T: 44 QT: 377 QTc: 432 Interpretive Statements SINUS RHYTHM WITH SINUS ARRHYTHMIA BASELINE ARTIFACT- II, III, AVR, AVF, V1-V2 NORMAL ECG Electronically Signed On 06-09-2019 14:39:16 CDT by Adi Patel D.O.
--- NOTE | 2019-06-09 13:25 | ED.GENADULT ---
HPI - General Adult General Chief complaint: Upper Respiratory Infection Stated complaint: cough Time Seen by Provider: 06/09/19 13:21 Source: patient and family Mode of arrival: ambulatory Limitations: no limitations History of Present Illness HPI narrative: Patient is here for evaluation of cough. She has had no fever, her cough started yesterday she denies any chest congestion, wheezing, nasal congestion. She has been using her albuterol nebulizer every 6-8 hours without relief. Family states that she has a history of asthma and bronchitis and in the past has been treated with Tessalon Perles and steroids with success. Related Data Home Medications Medication Instructions Recorded Confirmed albuterol sulfate 90 mcg/actuation 1 puff INHALATION Q4H PRN 01/17/19 05/28/19 aerosol inhaler calcium carbonate 500 mg (1,250 1 tablet PO DAILY 01/17/19 05/28/19 mg)-vitamin D3 200 unit tablet cetirizine 10 mg tablet 10 mg PO DAILY 01/17/19 05/28/19 cholecalciferol (vitamin D3) 50 2,000 unit PO DAILY 01/17/19 05/28/19 mcg (2,000 unit) capsule clonazepam 0.5 mg tablet 0.5 mg PO Q6H 01/17/19 05/28/19 dicyclomine 20 mg tablet 20 mg PO PRN PRN 01/17/19 05/28/19 docusate sodium 100 mg capsule 100 mg PO DAILY 01/17/19 05/28/19 ergocalciferol (vitamin D2) 1,250 50,000 unit PO WEEKLY 01/17/19 05/28/19 mcg (50,000 unit) capsule estradiol 0.1 mg/24 hr semiweekly 1 patch TRANSDERM 2XW 01/17/19 05/28/19 transdermal patch lamotrigine 200 mg tablet 200 mg PO BID 01/17/19 05/28/19 lansoprazole 30 mg capsule,delayed 30 mg PO BID 01/17/19 05/28/19 release lifitegrast 5 % eye drops in a 1 drop EACH EYE Q12H 01/17/19 05/28/19 dropperette linaclotide 290 mcg capsule 290 mcg PO QAM 01/17/19 05/28/19 lmcwsp-xkuksazv-zrpsoel 2 cap PO TID cap 01/17/19 05/28/19 10,000-32,000-42,000 unit capsule,delayed rel melatonin 10 mg capsule 10 mg PO DAILY cap 01/17/19 05/28/19 metoclopramide HCl 5 mg/5 mL oral 10 mg PO BID ml 01/17/19 05/28/19 solution nystatin-triamcinolone 100,000 1 applic TOPICAL PRN 01/17/19 05/28/19 unit/g-0.1 % topical cream promethazine 12.5 mg tablet 12.5 mg PO PRN 01/17/19 05/28/19 sucralfate 1 gram tablet 1 gm PO Q6H tablet 01/17/19 05/28/19 tamsulosin 0.4 mg capsule 0.4 mg PO DAILY 01/17/19 05/28/19 topiramate 50 mg tablet 100 mg PO BID 01/17/19 05/28/19 trazodone 100 mg tablet 100 mg PO DAILY 01/17/19 05/28/19 trimethoprim 100 mg tablet 100 mg PO DAILY 01/17/19 05/28/19 venlafaxine 75 mg tablet,extended 75 mg PO DAILY 01/17/19 05/28/19 release 24 hr vit C 250 mg-E 200 unit-zinc 40 1 tablet PO BID 01/17/19 05/28/19 mg-copper 1 af-bgguqh-cgpzjl capsule aripiprazole 10 mg tablet 10 mg PO DAILY 04/28/19 05/28/19 ondansetron HCl [Zofran] 8 mg PO Q8H PRN 05/21/19 05/28/19 acyclovir 800 mg PO BID 05/27/19 05/28/19 rizatriptan 10 mg TRANSLINGUAL PRN 05/28/19 05/28/19 Allergies Allergy/AdvReac Type Severity Reaction Status Date / Time aspirin Allergy Unknown Rash Verified 06/09/19 14:23 azelastine Allergy Unknown Itching Verified 06/09/19 14:23 ceftriaxone Allergy Unknown Rash Verified 06/09/19 14:23 diclofenac Allergy Unknown Rash Verified 06/09/19 14:23 fluconazole Allergy Unknown Rash Verified 06/09/19 14:23 Iodinated Contrast Media Allergy Unknown Hives Verified 06/09/19 14:23 iodine Allergy Unknown Hives Verified 06/09/19 14:23 ioversol Allergy Unknown Hives Verified 06/09/19 14:23 meperidine Allergy Unknown Rash Verified 06/09/19 14:23 nitrofurantoin Allergy Unknown Rash Verified 06/09/19 14:23 silicone Allergy Unknown Rash Verified 06/09/19 14:23 Review of Systems Review of Systems: All systems reviewed & are unremarkable except as noted in HPI and below [facility] Past Medical History Medical History (Updated 06/09/19 @ 15:19 by Vida Randolph PA-C) Abnormal uterine bleeding Ankle fracture Lt. Anorexia Anxiety Arthritis Asthma Bipolar 1 disorder Blind in both eyes Bowel obstruction Bronchi
[2019-06-09 13:40] VITALS: O2SAT 99
[2019-06-09 13:43] LABS: Basophils Absolute Auto 0.1 K/mm3 (0.0-0.1); Basophils Percent Auto 0.7 % (0.2-1.2); Eosinophils Absolute Auto 0.3 K/mm3 (0-0.3); Eosinophils Percent Auto 4.3 % (0-4.4); Hematocrit 43.3 % (37.0-47.0); Hemoglobin 13.8 g/dL (12.0-15.0); Immature Granulocyte Absolute 0.08 K/mm3 (0.00-0.031); Immature Granulocyte Percent A 1.1 % (0-0.5); Lymphocytes Absolute Auto 1.38 K/mm3 (0.9-3.2); Lymphocytes Percent Auto 18.4 % (18.3-44.2); Mean Corpuscular HGB Conc 31.9 g/dl (32-36); Mean Corpuscular Hemoglobin 29.4 pg (26-34); Mean Corpuscular Volume 92.1 fl (80-100); Mean Platelet Volume 9.1 fl (7.4-10.4); Monocytes Absolute Auto 0.6 K/mm3 (0.1-0.6); Monocytes Percent Auto 8.1 % (2.6-8.5); Neutrophils Absolute Auto 5.1 K/mm3 (1.3-6.7); Neutrophils Percent Auto 67.4 % (45.5-73.1); Platelet Count Result 317 k/mm3 (150-375); White Blood Count 7.5 K/mm3 (4.5-10.0)
[2019-06-09 13:54] LABS: Calcium 8.9 mg/dL (8.4-10.2); Carbon Dioxide 21 mmol/L (22-30); Chloride 109 mmol/L (98-107); Estimated CRCL calculation 95 ml/min; Estimated Glomerular Filt Rate > 60; Glucose 91 mg/dL (65-105); Potassium 4.3 mmol/L (3.4-5.0); Sodium 139 mmol/L (137-145)
[2019-06-09 14:01] LABS: Blood Urea Nitrogen < 2 mg/dL (7-17)
[2019-06-09] MEDS: BENZONATATE 100 MG CAPSULE 200 MG PO (14:19)
[2019-06-09 14:22] VITALS: BP 105/77; PULSE 81; RESP 20; TEMP 36.2; O2SAT 98
[2019-06-09 15:00] VITALS: BP 98/75; PULSE 66; RESP 13; TEMP 36.4; O2SAT 97
[2019-06-09 15:47] VITALS: BP 105/62; PULSE 74; RESP 20; TEMP 36.7; O2SAT 96
== END 2019-06-09 15:52 | disposition home or self-care (01) ==
PROVIDERS: Emergency Provider Emergency Medicine; PCP Physician Assistant
DX: R05 Cough (principal); E11.43 Type 2 diabetes mellitus with diabetic autonomic (poly)neuropathy; K31.84 Gastroparesis; K21.9 Gastro-esophageal reflux disease without esophagitis; K58.9 Irritable bowel syndrome, unspecified; M81.0 Age-related osteoporosis without current pathological fracture; E78.00 Pure hypercholesterolemia, unspecified; I95.89 Other hypotension; I25.10 Atherosclerotic heart disease of native coronary artery without angina pectoris; M19.90 Unspecified osteoarthritis, unspecified site; Z86.73 Personal history of transient ischemic attack (TIA), and cerebral infarction without residual deficits; Z87.442 Personal history of urinary calculi; Z95.1 Presence of aortocoronary bypass graft; Z87.891 Personal history of nicotine dependence; F41.9 Anxiety disorder, unspecified; F31.9 Bipolar disorder, unspecified; Z87.440 Personal history of urinary (tract) infections
CPT/HCPCS: 36415; 71045; 80048; 85025; 87804; 93005; 99284; A9270

== ENCOUNTER 2019-12-10 09:14 | Outpatient (CLI) | payer BC, MEDICAID, SELFPAY ==
[2019-12-10 09:46] LABS: Basophils Percent Auto 0.7 % (0.2-1.2); Eosinophils Absolute Auto 0.2 K/mm3 (0-0.3); Eosinophils Percent Auto 3.8 % (0-4.4); Hematocrit 44.9 % (37.0-47.0); Hemoglobin 14.7 g/dL (12.0-15.0); Immature Granulocyte Percent A 1.6 % (0-0.5); Lymphocytes Percent Auto 19.6 % (18.3-44.2); Mean Corpuscular HGB Conc 32.7 g/dl (32-36); Mean Corpuscular Hemoglobin 29.9 pg (26-34); Mean Corpuscular Volume 91.3 fl (80-100); Mean Platelet Volume 9.1 fl (7.4-10.4); Monocytes Absolute Auto 0.7 K/mm3 (0.1-0.6); Monocytes Percent Auto 10.8 % (2.6-8.5); Neutrophils Absolute Auto 3.9 K/mm3 (1.3-6.7); Neutrophils Percent Auto 63.5 % (45.5-73.1); Platelet Count Result 302 k/mm3 (150-375); Red Blood Count 4.92 M/mm3 (4.2-5.4); Red Cell Distribution Width 12.4 % (11.5-14.5); White Blood Count 6.1 K/mm3 (4.5-10.0)
[2019-12-10 09:56] LABS: Cholesterol 258 mg/dL (0-200); HDL Direct 41 mg/dL; Triglycerides 213 mg/dL (<150)
[2019-12-10 09:57] LABS: Alanine Aminotransferase 17 U/L (4-35); Alkaline Phosphatase 116 U/L (38-126); Anion Gap 3 mmol/L (8-16); Aspartate Amino Transferase 22 U/L (14-36); Bilirubin,Total 0.4 mg/dL (0.2-1.3); Blood Urea Nitrogen 5 mg/dL (7-17); Calcium 9.1 mg/dL (8.4-10.2); Carbon Dioxide 27 mmol/L (22-30); Chloride 109 mmol/L (98-107); Estimated Glomerular Filt Rate > 60; Glucose 97 mg/dL (65-105); Lipase 157 U/L (23-300); Potassium 4.3 mmol/L (3.4-5.0); Sodium 139 mmol/L (137-145)
[2019-12-10 10:07] LABS: LDL Cholesterol Direct 162 mg/dL
[2019-12-10 10:41] LABS: Vitamin D 25 Hydroxy < 12.8 ng/mL
== END 2019-12-10 09:15 | disposition home or self-care (01) ==
PROVIDERS: Internal Medicine Endocrinology, Diabetes & Metabolism; PCP Physician Assistant; Visit Provider Physician Assistant
DX: K86.1 Other chronic pancreatitis (principal); E55.9 Vitamin D deficiency, unspecified; E53.8 Deficiency of other specified B group vitamins; M85.80 Other specified disorders of bone density and structure, unspecified site; R53.83 Other fatigue
CPT/HCPCS: 36415; 80053; 80061; 82248; 82306; 82607; 83690; 84443; 85025

== ENCOUNTER 2019-12-25 06:56 | Outpatient (NON) | payer BC, MEDICAID, SELFPAY ==
[2019-12-25 16:39] LABS: SARS-CoV-2 RNA PCR Negative
== END 2019-12-25 06:57 ==
PROVIDERS: PCP Physician Assistant; Visit Provider Physician Assistant
DX: Z20.828 Contact with and (suspected) exposure to other viral communicable diseases (principal); R68.89 Other general symptoms and signs
CPT/HCPCS: 87635; C9803; U0003

== ENCOUNTER 2020-02-18 16:24 | Outpatient (CLI) | payer BC, MEDICAID, SELFPAY ==
--- NOTE | ~2020-02-18 | MR_ITS ---
EXAMINATION: MR knee RT wo con DATE: 02/18/2020 17:37 INDICATION: Right knee pain TECHNIQUE: Magnetic resonance imaging (MRI) of the right knee was performed without intravenous contr ast. Sequences included coronal PD-weighted FSE, coronal PD-weighted FS FSE, sagittal T2-weighted FS E, sagittal PD-weighted FS FSE and axial PD weighted fat saturated FSE. COMPARISON: Right knee radiographs dated 02/09/2020 FINDINGS: Medial compartment: Medial meniscus is normal. Partial-thickness chondral fissuring which appears to involve up to 50% th e cartilage thickness along the lateral side of the central weightbearing medial femoral condyle. Lateral compartment: Discoid lateral meniscus. Chondral swelling with and heterogeneous cartilage signal suggesting partia l thickness fissuring at the mid to posterior lateral tibial plateau. Patellofemoral compartment: Patellofemoral cartilage appears normal. There is however a small sagittally oriented region of subar ticular edema along the inferior aspect of the patellar apical ridge which suggests possibility of oc cult overlying chondromalacia. Ligaments and tendons: Anterior and posterior cruciate ligaments are normal. The medial collateral ligament and fibular ken ateral ligament complex are normal. The extensor mechanism is normal. The visualized medial and later al hamstring tendons as well as the iliotibial band are normal. Fluid: Physiologic amount of fluid in the joint space. No loose osteochondral bodies identified. Osseous/other: No fracture or pathologic marrow replacing process. There is edema in the superficial suprapatellar f at pad which can be seen with fat pad impingement syndrome. IMPRESSION: 1. Discoid lateral meniscus without evident tear. 2. Mild medial and patellofemoral osteoarthritis with moderate grade chondromalacia at the medial fem oral condyle and lateral tibial plateau. 3. Marrow edema underlying the inferior aspect of the patellar apical ridge which could be due to occ ult overlying chondromalacia or potentially bone contusion. 4. Edema in the superficial suprapatellar fat pad which can be seen with fat pad impingement syndrome . Reviewed, dictated and finalized at location A. FILER BALANCE WHEEL IMPRESSION: 1. Discoid lateral meniscus without evident tear. 2. Mild medial and patellofemoral osteoarthritis with moderate grade chondromal acia at the medial femoral condyle and lateral tibial plateau. 3. Marrow edema underlying the inferior aspect of the patellar apical ridge whi ch could be due to occult overlying chondromalacia or potentially bone contusio n. 4. Edema in the superficial suprapatellar fat pad which can be seen with fat pa d impingement syndrome.
== END 2020-02-18 16:25 | disposition home or self-care (01) ==
PROVIDERS: PCP Physician Assistant; Visit Provider Orthopaedic Surgery
DX: M23.300 Other meniscus derangements, unspecified lateral meniscus, right knee (principal); M17.11 Unilateral primary osteoarthritis, right knee; R60.0 Localized edema
CPT/HCPCS: 73721

== ENCOUNTER 2020-02-25 11:27 | Outpatient (CLI) | payer BC, MEDICAID, SELFPAY ==
[2020-02-28 22:44] LABS: Vitamin D 1,25 (OH)2 Total 70 pg/mL (18-72); Vitamin D2 1,25 (OH)2 <8 pg/mL; Vitamin D3 1,25 (OH)2 70 pg/mL
== END 2020-02-25 11:28 | disposition home or self-care (01) ==
LOC: ANHLAB 11:29
PROVIDERS: PCP Physician Assistant; Visit Provider Internal Medicine Endocrinology, Diabetes & Metabolism
DX: E55.9 Vitamin D deficiency, unspecified (principal); M85.89 Other specified disorders of bone density and structure, multiple sites
CPT/HCPCS: 36415; 82652

== ENCOUNTER 2020-03-01 15:34 | Outpatient (CLI) | payer BC, MEDICAID, SELFPAY ==
--- NOTE | ~2020-03-01 | XR_ITS ---
XR abdomen/kub 1V 03/01/2020 16:12 Indication: Bilateral renal stones Procedure: KUB Comparison: Comparison to multiple prior studies sequentially, with oldest reviewed study dated 01/18. Findings: There are multiple bilateral renal stones. There are cholecystectomy clips. Bowel gas patte rn is nonobstructive. No acute osseous abnormality. Impression: 1: Multiple bilateral renal stones. Reviewed, dictated and finalized at location A. 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
== END 2020-03-01 15:35 | disposition home or self-care (01) ==
PROVIDERS: PCP Physician Assistant; Visit Provider Nurse Practitioner Adult Health
DX: N20.0 Calculus of kidney (principal)
CPT/HCPCS: 74018

== ENCOUNTER 2020-03-15 13:10 | Outpatient (CLI) | payer BC, MEDICAID, SELFPAY ==
[2020-03-15 14:54] LABS: Vitamin D 25 Hydroxy 19.3 ng/mL
== END 2020-03-15 13:11 | disposition home or self-care (01) ==
LOC: ANHLAB 13:12
PROVIDERS: PCP Physician Assistant; Visit Provider Internal Medicine Endocrinology, Diabetes & Metabolism
DX: E55.9 Vitamin D deficiency, unspecified (principal); M85.89 Other specified disorders of bone density and structure, multiple sites
CPT/HCPCS: 36415; 82306

== ENCOUNTER 2020-04-28 08:17 | Emergency (ER) | payer BC, MEDICAID, SELFPAY ==
--- NOTE | ~2020-04-28 | CT_ITS ---
EXAMINATION: CT abdomen pelvis wo con DATE: 04/28/2020 08:50 INDICATION: Upper abdominal pain TECHNIQUE: Computed tomography (CT) of the abdomen and pelvis was performed without intravenous contr ast. The dose-length product was 716.69 mGy-cm. Automated exposure control and iterative reconstructi on technique were employed. COMPARISON: CT dated 05/27/2019. FINDINGS: Bilateral lower lobe atelectasis. Heart size normal. No significant pleural or pericardial effusion. No significant vascular abnormality. There are multiple ventral hernias containing fat nono bstructive bowel gas pattern. There are multiple nonobstructing bilateral renal stones. No ureteral stones or hydronephrosis. There are cholecystectomy clips. There is pneumobilia. The spleen, pancreas, adrenal glands are unremarkab le. No retroperitoneal lymphadenopathy. IMPRESSION: 1. Nonobstructing bilateral nephrolithiasis. 2: Multiple ventral and umbilical hernias containing fat. 3: Bilateral lower lobe atelectasis. Reviewed, dictated and finalized at location B. PACKER
[2020-04-28 08:22] VITALS: BP 131/76; PULSE 95; RESP 14; TEMP 36.7; O2SAT 95
--- NOTE | 2020-04-28 08:33 | ED.GENADULT ---
HPI - General Adult General Chief complaint: Abdominal Pain Stated complaint: abd pain Time Seen by Provider: 04/28/20 08:19 Source: RN notes reviewed History of Present Illness HPI narrative: Patient presents to emergency department from home for abdominal pain. Patient states pain began 2 days ago. Pain is located in the upper abdomen and radiates around to the right upper quadrant and right back. The pain is described as sharp and stabbing is been associated with nausea and vomiting patient denies any fevers or chills or diarrhea states she does have a history of pancreatitis in the past and this does feel similar to previous episodes states she last took Tylenol yesterday for the pain denies any other symptoms at this time Related Data Home Medications Medication Instructions Recorded Confirmed calcium carbonate 500 mg (1,250 1 tablet PO DAILY 01/17/19 03/22/20 mg)-vitamin D3 200 unit tablet cetirizine 10 mg tablet 10 mg PO DAILY 01/17/19 03/22/20 clonazepam 0.5 mg tablet 0.5 mg PO Q6H 01/17/19 03/22/20 dicyclomine 20 mg tablet 20 mg PO PRN PRN 01/17/19 03/22/20 docusate sodium 100 mg capsule 100 mg PO DAILY 01/17/19 03/22/20 estradiol 0.1 mg/24 hr semiweekly 1 patch TRANSDERM 2XW 01/17/19 03/22/20 transdermal patch lamotrigine 200 mg tablet 200 mg PO BID 01/17/19 03/22/20 lansoprazole 30 mg capsule,delayed 30 mg PO BID 01/17/19 03/22/20 release lifitegrast 5 % eye drops in a 1 drop EACH EYE Q12H 01/17/19 03/22/20 dropperette linaclotide 290 mcg capsule 290 mcg PO QAM 01/17/19 03/22/20 tlpfdv-gnzhlatq-hypybsu 2 cap PO TID cap 01/17/19 03/22/20 10,000-32,000-42,000 unit capsule,delayed rel melatonin 10 mg capsule 10 mg PO DAILY cap 01/17/19 03/22/20 promethazine 12.5 mg tablet 12.5 mg PO PRN 01/17/19 03/22/20 sucralfate 1 gram tablet 1 gm PO Q6H tablet 01/17/19 03/22/20 tamsulosin 0.4 mg capsule 0.4 mg PO DAILY 01/17/19 03/22/20 trazodone 100 mg tablet 100 mg PO DAILY 01/17/19 03/22/20 trimethoprim 100 mg tablet 100 mg PO DAILY 01/17/19 03/22/20 venlafaxine 75 mg tablet,extended 75 mg PO DAILY 01/17/19 03/22/20 release 24 hr vit C 250 mg-vit E 90 mg-zinc 40 1 tablet PO BID 01/17/19 03/22/20 mg-copper 1 [id number]-fehtxb capsule ondansetron HCl [Zofran] 8 mg PO Q8H PRN 05/21/19 03/22/20 metoclopramide HCl 5 mg/5 mL oral 20 mg PO BID ml 03/01/20 03/22/20 solution quetiapine 150 mg tablet,extended mg PO DAILY tablet 03/01/20 03/22/20 release 24 hr sumatriptan succinate 100 mg tablet 100 mg PO ONCE 03/01/20 03/22/20 Allergies Allergy/AdvReac Type Severity Reaction Status Date / Time aspirin Allergy Unknown Rash Verified 03/01/20 14:08 azelastine Allergy Unknown Itching Verified 03/01/20 14:08 ceftriaxone Allergy Unknown Rash Verified 03/01/20 14:08 diclofenac Allergy Unknown Rash Verified 03/01/20 14:08 fluconazole Allergy Unknown Rash Verified 03/01/20 14:08 Iodinated Contrast Media Allergy Unknown Hives Verified 03/01/20 14:08 iodine Allergy Unknown Hives Verified 03/01/20 14:08 ioversol Allergy Unknown Hives Verified 03/01/20 14:08 meperidine Allergy Unknown Rash Verified 03/01/20 14:08 nitrofurantoin Allergy Unknown Rash Verified 03/01/20 14:08 silicone Allergy Unknown Rash Verified 03/01/20 14:08 Review of Systems Review of Systems: Narrative: Gen.: Denies fevers or chills ENT: Denies congestion Respiratory: Denies shortness of breath or cough CV: Denies chest pain or palpitations GI: See HPI denies burning, urgency, frequency or hematuria Musculoskeletal: Denies back pain or muscle pain Neuro: Denies numbness, tingling, weakness or focal weakness Skin: Denies rash Except as documented, all other systems reviewed and negative PMFSH Past Medical History Medical History Abnormal uterine bleeding Ankle fracture Lt. 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
[2020-04-28 08:57] LABS: Basophils Absolute Auto 0.1 K/mm3 (0.0-0.1); Basophils Percent Auto 0.8 % (0.2-1.2); Eosinophils Absolute Auto 0.3 K/mm3 (0-0.3); Hematocrit 46.1 % (37.0-47.0); Hemoglobin 15.4 g/dL (12.0-15.0); Immature Granulocyte Absolute 0.06 K/mm3 (0.00-0.031); Immature Granulocyte Percent A 0.8 % (0-0.5); Lymphocytes Absolute Auto 1.66 K/mm3 (0.9-3.2); Mean Corpuscular HGB Conc 33.4 g/dl (32-36); Mean Corpuscular Hemoglobin 29.6 pg (26-34); Mean Corpuscular Volume 88.5 fl (80-100); Mean Platelet Volume 10.1 fl (7.4-10.4); Monocytes Absolute Auto 0.7 K/mm3 (0.1-0.6); Monocytes Percent Auto 9.6 % (2.6-8.5); Neutrophils Absolute Auto 4.5 K/mm3 (1.3-6.7); Neutrophils Percent Auto 61.8 % (45.5-73.1); Platelet Count Result 357 k/mm3 (150-375); Red Blood Count 5.21 M/mm3 (4.2-5.4); Red Cell Distribution Width 13.2 % (11.5-14.5); White Blood Count 7.2 K/mm3 (4.5-10.0)
[2020-04-28] MEDS: MORPHINE SULFATE (*CRX) 4 MG/ML INJ IV PUSH (09:09)
[2020-04-28] MEDS: ONDANSETRON INJ 4 MG/2 ML VIAL IV PUSH (09:09)
[2020-04-28] MEDS: SODIUM CHLORIDE 0.9% IV 1,000 ML 999 ML IV CONT (09:09)
[2020-04-28 09:13] LABS: Add Urine Microscopic? YES; Appearance Urine Clear (Clear); Bacteria Urine Trace /hpf; Bilirubin Urine Negative (Negative); Blood Urine Negative (Negative); Color Urine Yellow (Yellow); Glucose Urine UA Negative (Negative); Ketones Urine Negative (Negative); Leukocyte Esterase Ur 1+ LEU/UL (Negative); Mucus Urine Rare /lpf; Nitrate Urine Negative (Negative); Protein Urine Negative (Negative); RBC Urine 0-2 /hpf (0-2); Specific Grav Ur 1.015 (1.001-1.035); Squamous Epithelial Cell Urine Moderate /hpf (Few); Urobilinogen Urine Negative mg/dL (<2.0)
[2020-04-28 09:17] LABS: Alanine Aminotransferase 24 U/L (4-35); Albumin Level 4.3 g/dL (3.5-5.1); Alkaline Phosphatase 87 U/L (38-126); Anion Gap 9 mmol/L (8-16); Aspartate Amino Transferase 39 U/L (14-36); Bilirubin,Total 0.7 mg/dL (0.2-1.3); Blood Urea Nitrogen 9 mg/dL (7-17); Calcium 8.9 mg/dL (8.4-10.2); Carbon Dioxide 22 mmol/L (22-30); Chloride 111 mmol/L (98-107); Estimated CRCL calculation 102 ml/min; Estimated Glomerular Filt Rate > 60; Glucose 95 mg/dL (65-105); Lipase 168 U/L (23-300); Potassium 4.4 mmol/L (3.4-5.0); Sodium 142 mmol/L (137-145)
[2020-04-28 09:59] VITALS: BP 134/68; PULSE 88; RESP 12; O2SAT 99
[2020-04-28] MEDS: FAMOTIDINE 20 MG/2 ML VIAL IV PUSH (10:30)
[2020-04-28] MEDS: PROMETHAZINE HCL 25 MG/ML AMPUL 12.5 MG IV PUSH (10:30)
[2020-04-28 11:56] VITALS: BP 103/66; PULSE 86; RESP 12; O2SAT 94
== END 2020-04-28 12:00 | disposition home or self-care (01) ==
PROVIDERS: Emergency Provider Emergency Medicine; PCP Physician Assistant
DX: N39.0 Urinary tract infection, site not specified (principal); R11.2 Nausea with vomiting, unspecified; R10.9 Unspecified abdominal pain; Z87.891 Personal history of nicotine dependence; F41.9 Anxiety disorder, unspecified; M19.90 Unspecified osteoarthritis, unspecified site; J45.909 Unspecified asthma, uncomplicated; E10.9 Type 1 diabetes mellitus without complications; F32.9 Major depressive disorder, single episode, unspecified; K21.9 Gastro-esophageal reflux disease without esophagitis; E78.5 Hyperlipidemia, unspecified; Z87.442 Personal history of urinary calculi; G40.909 Epilepsy, unspecified, not intractable, without status epilepticus; Z87.440 Personal history of urinary (tract) infections
CPT/HCPCS: 36415; 74176; 80053; 81001; 83690; 85025; 87086; 96361; 96374; 96375; 99284; A9270; J2270; J2405; J2550; J7030

== ENCOUNTER 2020-05-17 08:17 | Outpatient (CLI) | payer BC, MEDICAID, SELFPAY ==
--- NOTE | 2020-05-17 12:50 | WPDPFTINT ---
PFT Interpretation This is a pulmonary function test with pre and post-bronchodilator spirometry, plethysmography and diffusing capacity. The test was performed and results interpreted in accordance with the 2019 and 2005 ATS/ERS Task Force guidelines respectively using the Global Lung Function Initiative-2012 reference equations. Findings: Spirometry: The contour the inspiratory and expiratory flow tracing are normal. The pre bronchodilator FVC is 2.62 L, 78% predicted. The pre bronchodilator FEV1 is 2.13 L, 79% predicted. The FEV1: FVC ratio is 81%. The post bronchodilator FVC is 2.62 L, representing no change. The post bronchodilator FEV1 is 2.25 L, representing a 6% increase. Plethysmography: The total lung capacity is 3.27 L, 67% predicted. The functional residual capacity is 1.40 L, 51% predicted. The residual volume is 0.65 L, 38% predicted. Diffusing capacity: The absolute diffusion capacity is 15.2, 68% predicted. The diffusing capacity corrected for alveolar volume is 4.42, 95% predicted. Impression: There is a mild restrictive ventilatory abnormality. The spirometry is normal without evidence of an obstructive abnormality. There is no significant improvement after inhaling a single dose of albuterol. The absolute diffusing capacity is mildly decreased and normalizes when corrected for alveolar volume. There are no prior studies for comparison
== END 2020-05-17 08:18 | disposition home or self-care (01) ==
PROVIDERS: PCP Physician Assistant; Visit Provider Internal Medicine Critical Care Medicine
DX: J45.909 Unspecified asthma, uncomplicated (principal); R05 Cough
CPT/HCPCS: 94060; 94726; 94729

== ENCOUNTER 2020-05-31 14:27 | Outpatient (CLI) | payer BC, MEDICAID, SELFPAY ==
[2020-05-31 15:18] LABS: Lipase 143 U/L (23-300)
== END 2020-05-31 14:28 | disposition home or self-care (01) ==
LOC: ANHLAB 14:31
PROVIDERS: PCP Physician Assistant; Visit Provider Physician Assistant Medical
DX: K86.1 Other chronic pancreatitis (principal)
CPT/HCPCS: 36415; 83690

== ENCOUNTER 2020-06-15 10:43 | Outpatient (CLI) | payer BC, MEDICAID, SELFPAY ==
[2020-06-15 11:45] LABS: Anion Gap 8 mmol/L (8-16); Blood Urea Nitrogen 8 mg/dL (7-17); Calcium 8.8 mg/dL (8.4-10.2); Carbon Dioxide 21 mmol/L (22-30); Chloride 114 mmol/L (98-107); Estimated Glomerular Filt Rate > 60; Glucose 96 mg/dL (65-105); Sodium 143 mmol/L (137-145)
[2020-06-15 12:18] LABS: Vitamin D 25 Hydroxy 19.3 ng/mL
== END 2020-06-15 10:44 | disposition home or self-care (01) ==
LOC: ANHLAB 10:46
PROVIDERS: PCP Physician Assistant; Visit Provider Internal Medicine Endocrinology, Diabetes & Metabolism
DX: E55.9 Vitamin D deficiency, unspecified (principal); M85.80 Other specified disorders of bone density and structure, unspecified site; R79.89 Other specified abnormal findings of blood chemistry
CPT/HCPCS: 36415; 80048; 82306; 83970

== ENCOUNTER 2020-08-23 07:42 | Outpatient (CLI) | payer BC, MEDICAID, SELFPAY ==
--- NOTE | ~2020-08-23 | DEXA_ITS ---
Bone Density Report Name: Joy Oliveira Age: 50 Sex: Female Ethnicity: White Date of : 1970 Indication: osteopenia; history of glucocorticoids; prior fracture; asthma or emphysema; hysterectomy; postmenopausal Referring Provider: Kailee Pryor Study: Bone densitometry was performed. Exam Date: August 23, 2020 Accession number: [id number] Bone Density: Region BMD T-score Z-score Classification AP Spine (L1-L4) 1.039 -0.1 0.7 Normal Femoral Neck (Left) 0.704 -1.3 -0.6 Osteopenia Total Hip (Left) 0.850 -0.8 -0.3 Normal Total Hip Bilateral Avg 0.805 -1.2 -0.7 Osteopenia Femoral Neck (Right) 0.708 -1.3 -0.5 Osteopenia Total Hip (Right) 0.758 -1.5 -1.0 Osteopenia World Health Organization criteria for BMD impression classify patients as: Normal (T-score at or above -1.0), Osteopenia (T-score between -1.0 and -2.5), or Osteoporosis (T-score at or below -2.5). 10-year Fracture Risk(1): Major Osteoporotic Fracture 12% Hip Fracture 1.1% Reported Risk Factors: [place] (), Neck BMD=0.704, BMI=33.9, previous fracture, glucocorticoids (1) FRAX(R) Version 3.08. Fracture probability calculated for an untreated patient. Fracture probability may be lower if the patient has received treatment. Previous Exams: Region Exam Age BMD T-score BMD Change BMD Change Date g/cm2 vs Baseline vs Previous AP Spine(L1-L4) 08/23/2020 50 1.039 -0.1 -0.060(-5.5%)* 0.010(1.0%) 08/05/2018 48 1.029 -0.2 -0.071(-6.4%)* -0.071(-6.4%)* 12/03/2013 43 1.099 0.5 Total Hip(Left) 08/23/2020 50 0.850 -0.8 0.065(8.3%)* 0.039(4.8%)* 08/05/2018 48 0.811 -1.1 0.026(3.3%) 0.026(3.3%) 12/03/2013 43 0.785 -1.3 Total Hip(Right) 08/23/2020 50 0.758 -1.5 -0.010(-1.3%) -0.004(-0.5%) 08/05/2018 48 0.761 -1.5 -0.006(-0.8%) -0.006(-0.8%) 12/03/2013 43 0.767 -1.4 *Denotes significance at 95% confidence level, LSC for AP Spine = 0.022 g/cm2, LSC for Total Hip = 0.027 g/cm2 Clinical Information Provided by Patient: Has had a low trauma fracture Has taken Glucocorticoids Has used the following medications: HRT (i.e. estrogen/hormone therapy), Vitamin D, Calcium Has the following medical conditions: Asthma or Emphysema, Hysterectomy Patient maximum height was 64 Menopause Age: 41 Does not regularly consume dairy products Drinks caffeinated beverages Onset of menses at age 12 Number of children 0 Impression: T
--- NOTE | ~2020-08-23 | MM_ITS ---
EXAMINATION: MM screening melani BI w donna HISTORY: Screening mammogram TECHNIQUE: Craniocaudal and mediolateral oblique 3-D tomosynthesis images were obtained and synthetic 2-D images were generated. CAD analysis was submitted and interpreted. COMPARISON: 03/10/2019, 03/05/2018, 02/27/2017 bilateral digital screening mammogram examinations BREAST PARENCHYMAL COMPOSITION: The breasts are almost entirely fatty. FINDINGS: There is no evidence of suspicious mass, calcification, or architectural distortion to sugg est malignancy in either breast. There has been no suspicious interval change. IMPRESSION: 1. No mammographic evidence of malignancy. 2. Recommend routine screening mammography in one year. BI-RADS Category 1: Negative Reviewed, dictated and finalized at location A.
== END 2020-08-23 07:43 | disposition home or self-care (01) ==
PROVIDERS: PCP Physician Assistant; Visit Provider Internal Medicine Endocrinology, Diabetes & Metabolism
DX: Z12.31 Encounter for screening mammogram for malignant neoplasm of breast (principal); R79.89 Other specified abnormal findings of blood chemistry; M85.852 Other specified disorders of bone density and structure, left thigh; M85.851 Other specified disorders of bone density and structure, right thigh
CPT/HCPCS: 77063; 77067; 77080

== ENCOUNTER 2020-09-13 14:21 | Outpatient (CLI) | payer BC, MEDICAID, SELFPAY ==
--- NOTE | ~2020-09-13 | XR_ITS ---
EXAMINATION: XR abdomen/kub 1V EXAM DATE: 09/13/2020 14:43 INDICATION: Bilateral kidney stones. Left-sided flank pain. TECHNIQUE: Frontal projection of the upper abdomen, frontal projection lower abdomen/pelvis for inter pretation. Compared to several prior examinations from 2018, 2018, 2019. FINDINGS: Scattered left calyceal stones upper, mid and lower poles. Multiple right lower calyceal s tones. In the pelvis there are 3 small calcifications measuring about 2 mm, most likely phleboliths g iven that these are unchanged compared to 2018. Cholecystectomy clips. Probably mild interval increase in stone burden compared to 2018. IMPRESSION: 1. Multiple small bilateral kidney stones. 2. Pelvic calcifications likely phleboliths. Reviewed, dictated and finalized at location A.
== END 2020-09-13 14:22 | disposition home or self-care (01) ==
LOC: ANHIMG 14:30
PROVIDERS: PCP Physician Assistant; Visit Provider Nurse Practitioner Adult Health
DX: N20.0 Calculus of kidney (principal)
CPT/HCPCS: 74018

== ENCOUNTER 2020-10-04 10:01 | Emergency (ER) | payer BC, MEDICAID, SELFPAY ==
[2020-10-04 10:07] VITALS: BP 93/60; PULSE 75; RESP 16; TEMP 36.5; O2SAT 97
--- NOTE | 2020-10-04 10:08 | ED.URI ---
HPI - URI/Sore Throat General Chief Complaint: Upper Respiratory Infection Stated Complaint: sore throat/fatigue/body aches Time Seen by Provider: 10/04/20 10:12 Source: patient and RN notes reviewed Mode of arrival: ambulatory Limitations: no limitations History of Present Illness HPI Narrative: 50-year-old female presents with concern for sore throat, body aches, fatigue, postnasal drainage for the past 4 days. She reports she has been taking Tylenol with little relief. She reports using her rescue albuterol inhaler more than normal. She denies current shortness of breath, cough, wheezing. Reports she was vaccinated for Covid with her last vaccine in June. MD elicited complaint: sore throat Related Data Home Medications Medication Instructions Recorded Confirmed cetirizine 10 mg tablet 10 mg PO DAILY 01/17/19 09/16/20 clonazepam 0.5 mg tablet 0.5 mg PO Q6H 01/17/19 09/16/20 dicyclomine 20 mg tablet 20 mg PO PRN PRN 01/17/19 09/16/20 docusate sodium 100 mg capsule 100 mg PO DAILY 01/17/19 09/16/20 estradiol 0.1 mg/24 hr semiweekly 1 patch TRANSDERM 2XW 01/17/19 09/16/20 transdermal patch lamotrigine 200 mg tablet 200 mg PO BID 01/17/19 09/16/20 lifitegrast 5 % eye drops in a 1 drop EACH EYE Q12H 01/17/19 09/16/20 dropperette hugfwy-eqomvbbv-cffhqeq 2 cap PO TID cap 01/17/19 09/16/20 10,000-32,000-42,000 unit capsule,delayed rel melatonin 10 mg capsule 10 mg PO DAILY cap 01/17/19 09/16/20 promethazine 12.5 mg tablet 12.5 mg PO PRN 01/17/19 09/16/20 sucralfate 1 gram tablet 1 gm PO Q6H tablet 01/17/19 09/16/20 tamsulosin 0.4 mg capsule 0.4 mg PO DAILY 01/17/19 09/16/20 trazodone 100 mg tablet 100 mg PO DAILY 01/17/19 09/16/20 trimethoprim 100 mg tablet 100 mg PO DAILY 01/17/19 09/16/20 venlafaxine 75 mg tablet,extended 75 mg PO DAILY 01/17/19 09/16/20 release 24 hr vit C 250 mg-vit E 90 mg-zinc 40 1 tablet PO BID 01/17/19 09/16/20 mg-copper 1 [id number]-wapfdp-[id number] capsule ondansetron HCl [Zofran] 8 mg PO Q8H PRN 05/21/19 09/16/20 metoclopramide HCl 5 mg/5 mL oral 20 mg PO BID ml 03/01/20 09/16/20 solution quetiapine 150 mg tablet,extended mg PO DAILY tablet 03/01/20 09/16/20 release 24 hr carboxymethyl 0.5 %-glycerin 1 1 drp EACH EYE QHS 06/07/20 09/16/20 %-polysorb 80 0.5 %-PF eye dropperette meclizine 12.5 mg tablet 12.5 mg PO TID 06/07/20 09/16/20 prednisolone acetate 1 % eye 1 drp EACH EYE Q12H 06/07/20 09/16/20 drops,suspension rizatriptan 10 mg tablet 10 mg PO ONCE 06/07/20 09/16/20 plecanatide 3 mg tablet 3 mg PO DAILY 07/05/20 09/16/20 topiramate 200 mg tablet 200 mg PO BID 07/05/20 09/16/20 Allergies Allergy/AdvReac Type Severity Reaction Status Date / Time trimethoprim [From Bactrim] Allergy Intermediate Vomiting Verified 09/13/20 12:53 aspirin Allergy Unknown Rash Verified 09/13/20 12:53 azelastine Allergy Unknown Itching Verified 09/13/20 12:53 ceftriaxone Allergy Unknown Rash Verified 09/13/20 12:53 diclofenac Allergy Unknown Rash Verified 09/13/20 12:53 fluconazole Allergy Unknown Rash Verified 09/13/20 12:53 Iodinated Contrast Media Allergy Unknown Hives Verified 09/13/20 12:53 iodine Allergy Unknown Hives Verified 09/13/20 12:53 ioversol Allergy Unknown Hives Verified 09/13/20 12:53 meperidine Allergy Unknown Rash Verified 09/13/20 12:53 nitrofurantoin Allergy Unknown Rash Verified 09/13/20 12:53 silicone Allergy Unknown Rash Verified 09/13/20 12:53 sulfamethoxazole AdvReac Vomiting Verified 09/13/20 12:53 Review of Systems Review of Systems: Narrative: CONSTITUTIONAL: Reports malaise, fatigue. Denies chills, sweats, or fever. EYES: Denies visual changes, redness, or discharge. ENT: Reports postnasal drainage, sore throat, hoarse voice. Denies rhinorrhea, congestion, sinus pain, otalgia. CARDIOVASCULAR: Denies chest pain, palpitations, or edema. RESPIRATORY: Reports occasional cough. Denies dyspnea. GASTROINTESTINAL: Denies abdominal pain, nausea, vomiting, diarrhea SKIN: D
== END 2020-10-04 11:28 | disposition home or self-care (01) ==
PROVIDERS: Emergency Provider Nurse Practitioner; PCP Physician Assistant
DX: J06.9 Acute upper respiratory infection, unspecified (principal); Z20.822 Contact with and (suspected) exposure to COVID-19; Z87.891 Personal history of nicotine dependence; F41.9 Anxiety disorder, unspecified; J45.909 Unspecified asthma, uncomplicated; N80.9 Endometriosis, unspecified; E10.43 Type 1 diabetes mellitus with diabetic autonomic (poly)neuropathy; K31.84 Gastroparesis; R01.1 Cardiac murmur, unspecified; E78.00 Pure hypercholesterolemia, unspecified; I20.9 Angina pectoris, unspecified; Z86.73 Personal history of transient ischemic attack (TIA), and cerebral infarction without residual deficits; M81.0 Age-related osteoporosis without current pathological fracture; G40.909 Epilepsy, unspecified, not intractable, without status epilepticus; F31.9 Bipolar disorder, unspecified
CPT/HCPCS: 87081; 87426; 87880; 99213; C9803; G0463

== ENCOUNTER 2020-10-15 12:22 | Outpatient (CLI) | payer BC, MEDICAID, SELFPAY ==
[2020-10-15 14:00] LABS: Anion Gap 12 mmol/L (8-16); Blood Urea Nitrogen 5 mg/dL (7-17); Calcium 9.7 mg/dL (8.4-10.2); Carbon Dioxide 18 mmol/L (22-30); Chloride 110 mmol/L (98-107); Estimated Glomerular Filt Rate > 60; Glucose 94 mg/dL (65-110); Potassium 4.3 mmol/L (3.4-5.0); Sodium 140 mmol/L (137-145)
[2020-10-15 14:24] LABS: Vitamin D 25 Hydroxy 16.7 ng/mL
== END 2020-10-15 12:23 | disposition home or self-care (01) ==
PROVIDERS: PCP Physician Assistant; Visit Provider Internal Medicine Endocrinology, Diabetes & Metabolism
DX: R79.89 Other specified abnormal findings of blood chemistry (principal); M85.88 Other specified disorders of bone density and structure, other site; E55.9 Vitamin D deficiency, unspecified
CPT/HCPCS: 36415; 80048; 82306

== ENCOUNTER 2020-10-18 10:31 | Outpatient (CLI) | payer BC, MEDICAID, SELFPAY ==
[2020-10-18 12:18] LABS: Creatinine Urine 6.9 mg/dL
[2020-10-18 21:58] LABS: Creatinine 24 Hour Urine 0.2 gm/24 (0.8-1.8); Total Volume 24 Hour Urine 3000 ml
[2020-10-21 04:26] LABS: Total Volume 3000 mL
== END 2020-10-18 10:32 | disposition home or self-care (01) ==
LOC: ANHLAB 10:37
PROVIDERS: PCP Physician Assistant; Visit Provider Internal Medicine Endocrinology, Diabetes & Metabolism
DX: R79.89 Other specified abnormal findings of blood chemistry (principal); M85.89 Other specified disorders of bone density and structure, multiple sites
CPT/HCPCS: 81050; 82340; 82570

== ENCOUNTER 2020-12-13 07:15 | Outpatient (CLI) | payer BC, MEDICAID, SELFPAY ==
[2020-12-13 07:52] LABS: Cholesterol 254 mg/dL (0-200); HDL Direct 46 mg/dL; Triglycerides 188 mg/dL (<150)
[2020-12-13 08:03] LABS: LDL Cholesterol Direct 141 mg/dL
[2020-12-13 08:58] LABS: Folic Acid 4.1 ng/mL (2.76->20)
== END 2020-12-13 07:16 | disposition home or self-care (01) ==
PROVIDERS: PCP Physician Assistant; Visit Provider Physician Assistant
DX: R53.83 Other fatigue (principal); E78.5 Hyperlipidemia, unspecified
CPT/HCPCS: 36415; 80061; 82607; 82746; 84443

== ENCOUNTER 2020-12-16 16:51 | Emergency (ER) | payer BC, MEDICAID, SELFPAY ==
[2020-12-16 17:03] VITALS: BP 108/72; PULSE 78; RESP 20; TEMP 36.7; O2SAT 97
[2020-12-16 17:05] VITALS: BP 108/72; PULSE 78; RESP 20; TEMP 36.7; O2SAT 97
--- NOTE | 2020-12-16 17:20 | ED.DENTAL ---
HPI - Dental/Oral General Chief complaint: Dental/Oral Stated complaint: facial swelling Time Seen by Provider: 12/16/20 17:20 Source: patient Mode of arrival: ambulatory Limitations: no limitations History of Present Illness HPI Narrative: Joy Oliveira is a 50 yo female witha PMH of glaucoma, GERD, dyslipidemia, bipolardisorder, IBS, [facility] with a right swollen cheek that she denies is dental but she has a large swollen lymph node on her right jaw and pain along her jawline. Is got increasingly worse over the last 3 to 4 days. She has a dental appointment 2 weeks for dental cleaning, and a PCP appointment on Sunday but states that the pain is too bad for her to wait that long Related Data Home Medications Medication Instructions Recorded Confirmed cetirizine 10 mg tablet 10 mg PO DAILY 01/17/19 12/16/20 clonazepam 0.5 mg tablet 0.5 mg PO Q6H 01/17/19 12/16/20 dicyclomine 20 mg tablet 20 mg PO PRN PRN 01/17/19 12/16/20 docusate sodium 100 mg capsule 100 mg PO DAILY 01/17/19 12/16/20 estradiol 0.1 mg/24 hr semiweekly 1 patch TRANSDERM 2XW 01/17/19 12/16/20 transdermal patch lamotrigine 200 mg tablet 200 mg PO BID 01/17/19 12/16/20 lifitegrast 5 % eye drops in a 1 drop EACH EYE Q12H 01/17/19 12/16/20 dropperette dnwskf-katwvmzx-ufmrylg 2 cap PO QID cap 01/17/19 12/16/20 10,000-32,000-42,000 unit capsule,delayed rel melatonin 10 mg capsule 10 mg PO DAILY cap 01/17/19 12/16/20 sucralfate 1 gram tablet 1 gm PO Q6H tablet 01/17/19 12/16/20 tamsulosin 0.4 mg capsule 0.4 mg PO DAILY 01/17/19 12/16/20 trazodone 100 mg tablet 100 mg PO DAILY 01/17/19 12/16/20 trimethoprim 100 mg tablet 100 mg PO DAILY 01/17/19 12/16/20 venlafaxine 75 mg tablet,extended 75 mg PO DAILY 01/17/19 12/16/20 release 24 hr metoclopramide HCl 5 mg/5 mL oral 20 mg PO BID ml 03/01/20 12/16/20 solution quetiapine 150 mg tablet,extended 150 mg PO DAILY tablet 03/01/20 12/16/20 release 24 hr carboxymethyl 0.5 %-glycerin 1 1 drp EACH EYE QHS 06/07/20 12/16/20 %-polysorb 80 0.5 %-PF eye dropperette meclizine 12.5 mg tablet 12.5 mg PO TID PRN 06/07/20 12/16/20 prednisolone acetate 1 % eye 1 drp EACH EYE Q12H 06/07/20 12/16/20 drops,suspension rizatriptan 10 mg tablet 10 mg PO ONCE 06/07/20 12/16/20 plecanatide 3 mg tablet 3 mg PO DAILY 07/05/20 12/16/20 topiramate 200 mg tablet 200 mg PO BID 07/05/20 12/16/20 acyclovir 800 mg tablet 800 mg PO QID PRN tablet 10/28/20 12/16/20 nystatin-triamcinolone 1 applic TOPICAL PRN PRN 12/10/20 12/16/20 Allergies Allergy/AdvReac Type Severity Reaction Status Date / Time aspirin Allergy Rash Verified 12/16/20 17:03 azelastine Allergy Itching Verified 12/16/20 17:03 ceftriaxone Allergy Rash Verified 12/16/20 17:03 diclofenac Allergy Rash Verified 12/16/20 17:03 fluconazole Allergy Rash Verified 12/16/20 17:03 Iodinated Contrast Media Allergy Hives Verified 12/16/20 17:03 iodine Allergy Hives Verified 12/16/20 17:03 ioversol Allergy Hives Verified 12/16/20 17:03 meperidine Allergy Rash Verified 12/16/20 17:03 nitrofurantoin Allergy Rash Verified 12/16/20 17:03 silicone Allergy Rash Verified 12/16/20 17:03 sulfamethoxazole AdvReac Vomiting Verified 12/16/20 17:03 Review of Systems Review of Systems: CONSTITUTIONAL: Denies fever, chills, sweats. EYES: Denies visual changes, redness, discharge. ENT: Denies rhinorrhea, congestion, sore throat, otalgia. Appears to have dental abscess right cheek CARDIOVASCULAR: Denies chest pain, palpitations, edema. RESPIRATORY: Denies dyspnea, wheezing, cough GASTROINTESTINAL: Denies abdominal pain, nausea, vomiting, diarrhea. GENITOURINARY: Denies dysuria, hematuria, abnormal discharge SKIN: Denies rash or itching. NEUROLOGIC: Denies numbness, or focal weakness. PSYCHIATRIC: Denies anxiety or depression. [facility] Past Medical History Medical History Abnormal uterine bleeding Ankl
== END 2020-12-16 17:50 | disposition home or self-care (01) ==
PROVIDERS: Emergency Provider Nurse Practitioner; PCP Physician Assistant
DX: K04.7 Periapical abscess without sinus (principal); F41.9 Anxiety disorder, unspecified; F31.9 Bipolar disorder, unspecified; G21.9 Secondary parkinsonism, unspecified; R01.1 Cardiac murmur, unspecified; I20.9 Angina pectoris, unspecified; Z86.73 Personal history of transient ischemic attack (TIA), and cerebral infarction without residual deficits; E78.00 Pure hypercholesterolemia, unspecified; M81.0 Age-related osteoporosis without current pathological fracture; G40.909 Epilepsy, unspecified, not intractable, without status epilepticus; E10.43 Type 1 diabetes mellitus with diabetic autonomic (poly)neuropathy; K31.84 Gastroparesis; F17.210 Nicotine dependence, cigarettes, uncomplicated
CPT/HCPCS: 99213; G0463

== ENCOUNTER 2020-12-27 01:42 | Day surgery (SDC) | payer BC, MEDICAID, SELFPAY ==
[2020-12-10 14:25] VITALS: BMI 33.5
[2020-12-27 07:48] VITALS: BP 107/66; PULSE 72; RESP 18; TEMP 36; O2SAT 96; BMI 33.5
--- NOTE | 2020-12-27 07:57 | WPDANESEPPF ---
Anes - Initial Pre Proc Eval Procedure: Operation Date: 12/27/20 08:45 Proposed Procedures p Esophagogastroduodenoscopy & Screening Colonoscopy - Wilber Gustafson MD Date/Time: 12/27/20 07:57 Surgeon: Wilber Gustafson MD Pre Op Diagnosis: neoplasm screening, hx of colon polyps, dysphagia Patient Data Age: 50 Gender: F Height: 1.6 m Weight: 85.7 kg Last Vital Signs Temp 36.0 C L 12/27/20 07:48 Pulse 72 12/27/20 07:48 Resp 18 12/27/20 07:48 BP 107/66 12/27/20 07:48 Pulse Ox 96 12/27/20 07:48 Allergies Allergy/AdvReac Type Severity Reaction Status Date / Time aspirin Allergy Rash Verified 12/27/20 07:47 azelastine Allergy Itching Verified 12/27/20 07:47 ceftriaxone Allergy Rash Verified 12/27/20 07:47 diclofenac Allergy Rash Verified 12/27/20 07:47 fluconazole Allergy Rash Verified 12/27/20 07:47 Iodinated Contrast Media Allergy Hives Verified 12/27/20 07:47 iodine Allergy Hives Verified 12/27/20 07:47 ioversol Allergy Hives Verified 12/27/20 07:47 meperidine Allergy Rash Verified 12/27/20 07:47 nitrofurantoin Allergy Rash Verified 12/27/20 07:47 silicone Allergy Rash Verified 12/27/20 07:47 sulfamethoxazole AdvReac Vomiting Verified 12/27/20 07:47 Home Medications Medication Instructions Recorded Confirmed Type cetirizine 10 mg tablet 10 mg PO DAILY 01/17/19 12/25/20 History clonazepam 0.5 mg tablet 0.5 mg PO Q6H 01/17/19 12/25/20 History dicyclomine 20 mg tablet 20 mg PO PRN PRN 01/17/19 12/25/20 History docusate sodium 100 mg capsule 100 mg PO DAILY 01/17/19 12/25/20 History estradiol 0.1 mg/24 hr semiweekly 1 patch TRANSDERM 2XW 01/17/19 12/25/20 History transdermal patch lamotrigine 200 mg tablet 200 mg PO BID 01/17/19 12/25/20 History lifitegrast 5 % eye drops in a 1 drop EACH EYE Q12H 01/17/19 12/25/20 History dropperette hkxybu-jsdbcvfp-dhkcemn 2 cap PO QID cap 01/17/19 12/25/20 History 10,000-32,000-42,000 unit capsule,delayed rel melatonin 10 mg capsule 10 mg PO DAILY cap 01/17/19 12/25/20 History sucralfate 1 gram tablet 1 gm PO Q6H tablet 01/17/19 12/25/20 History tamsulosin 0.4 mg capsule 0.4 mg PO DAILY 01/17/19 12/25/20 History trazodone 100 mg tablet 100 mg PO DAILY 01/17/19 12/25/20 History trimethoprim 100 mg tablet 100 mg PO DAILY 01/17/19 12/25/20 History venlafaxine 75 mg tablet,extended 75 mg PO DAILY 01/17/19 12/25/20 History release 24 hr albuterol sulfate 90 mcg/actuation 1 puff INHALATION Q4-6H PRN #8.5 g 12/31/19 12/25/20 Rx aerosol inhaler ezetimibe 10 mg tablet 10 mg PO DAILY #90 tablet 02/16/20 12/25/20 Rx rosuvastatin 40 mg tablet 40 mg PO DAILY #90 tablet 02/16/20 12/25/20 Rx metoclopramide HCl 5 mg/5 mL oral 20 mg PO BID ml 03/01/20 12/25/20 History solution quetiapine 150 mg tablet,extended 150 mg PO DAILY tablet 03/01/20 12/25/20 History release 24 hr fluticasone propionate 50 2 spray INTRANASAL DAILY #16 g 04/27/20 12/25/20 Rx mcg/actuation nasal spray,suspension carboxymethyl 0.5 %-glycerin 1 1 drp EACH EYE QHS 06/07/20 12/25/20 History %-polysorb 80 0.5 %-PF eye dropperette meclizine 12.5 mg tablet 12.5 mg PO TID PRN 06/07/20 12/25/20 History prednisolone acetate 1 % eye 1 drp EACH EYE Q12H 06/07/20 12/25/20 History drops,suspension rizatriptan 10 mg tablet 10 mg PO ONCE 06/07/20 12/25/20 History plecanatide 3 mg tablet 3 mg PO DAILY 07/05/20 12/25/20 History topiramate 200 mg tablet 200 mg PO BID 07/05/20 12/25/20 History fluticasone 500 mcg-salmeterol 50 1 inh INHALATION Q12H #60 ea 09/13/20 12/25/20 Rx mcg/dose blistr powdr for inhalation tolnaftate 1 % topical powder 1 applic TOPICAL BID #45 gm 09/13/20 12/25/20 Rx fludrocortisone 0.1 mg tablet See Rx Instructions .ROUTE 10/25/20 12/25/20 Rx .COMPLEX #60 tablet acyclovir 800 mg tablet 800 mg PO QID PRN tablet 10/28/20 12/25/20 History esomeprazole magnesium 40 mg 40 mg PO DAILY #30 cap 10/28/20 12/25/20 Rx ca
[2020-12-27] MEDS: LACTATED RINGERS 1,000 ML 150 ML IV CONT (08:12)
[2020-12-27 08:13] LABS: Glucose Point of Care 99 mg/dl (65-105)
--- NOTE | 2020-12-27 08:42 | PM.HPGS ---
History of Present Illness History of Present Illness Consent: Risks, benefits, and alternatives have been discussed and questions answered. Patient agrees to proceed with procedure. Chief complaint: neoplasm screening, hx of colon polyps, dysphagia Narrative: Joy Oliveira is a 50 year old female here for egd and colonoscopy. She is legally blind, h/o gastroparesis on promethazine and zofran prn, also reglan, also h/o esophageal strictures requiring egd with dilation every 1-2 years as needed. Last one 1 year ago and lately with progressive dysphagia again and thinks that it is time for another one, GERD using now nexium but still symptomatic. Also had colon polyp 5 years ago. Review of Systems Constitutional: Constitutional: Denies headache(s) and Denies weakness Eyes: Eyes: Reports blind spots ENT: Reports Normal hearing present, Denies headache(s) and Denies neck pain Cardiovascular: Cardiovascular: Denies chest pain and Denies dyspnea Respiratory: Respiratory: Denies dyspnea Gastrointestinal: Gastrointestinal: Reports no additional gastrointestinal complaints Genitourinary: Genitourinary: Denies dysuria Musculoskeletal: Musculoskeletal: Denies neck pain Integumentary/Breasts: Skin/Breast: Denies dry skin Neurologic: Reports Normal hearing present, Denies headache(s) and Denies weakness Psychiatric: Psychiatric: Denies anxiety Endocrine: Endocrine: Denies change in body appearance Hematologic/Lymphatic: Hematologic/Lymphatic: Denies easy bleeding Allergic/Immunologic: Allergic/Immunologic: Denies urticaria PMFSH Past Medical History Medical History Abnormal uterine bleeding Ankle fracture Lt. Anorexia Anxiety Arthritis Asthma Bipolar 1 disorder Blind in both eyes Bowel obstruction Bronchitis Chondromalacia of knee Chronic headaches Chronic pancreatitis Colitis Colon polyp Congestion of throat Constipation Depression Diabetes type I Discoid meniscus of knee DM (diabetes mellitus) Endometriosis Fibroids Gastroparesis GERD (gastroesophageal reflux disease) Heart murmur High cholesterol History of angina History of esophageal dilatation History of GI bleed History of jejunostomy tube placement History of kidney stones History of melena History of pneumonia History of rectal polyps Hx of hiatal hernia Hx of migraines Hx of transient ischemic attack (TIA) Hx: UTI (urinary tract infection) Hypercholesteremia Hypotension, chronic IBS (irritable bowel syndrome) Kidney stones Low blood pressure Nausea Osteoporosis Pancreatitis Right knee pain Seizure Seizures Shingles Stomach ulcer Ulcer UTI (urinary tract infection) Vertigo Surgical History Surgical History H/O left wrist surgery History of ankle surgery Lt. History of appendectomy History of cholecystectomy History of esophagogastroduodenoscopy (EGD) History of hysterectomy History of lithotripsy History of oophorectomy MICHA. History of tonsillectomy Hx of CABG Hx of cardiac cath x2. Family History Family History Sibling Family history of migraine headaches Mother Family history of cardiovascular disease Father Family history of primary malignant neoplasm of liver Other Family history of alcoholism Family history of hypercholesterolemia Family history of liver disease Hypertension Social History Social History Smoking packs per day: 0.5 Smoking cigarettes per day: 10.0 Years smoked: 4 Smoking pack-years: 2.00 Tobacco type: cigarettes Second hand tobacco smoke exposure: No Smoking end date: 03/19/93 Alcohol intake: never Substance use: never Substance use type: does not use Living arrangements: with friend(s) Gender identity (if ve
--- NOTE | 2020-12-27 09:26 | SUR.OPER ---
EGD START 854, END 899 COLONOSCOPY START 903, END 922
[2020-12-27 09:27] VITALS: BP 104/52; PULSE 84; RESP 15; O2SAT 98
[2020-12-27 09:37] VITALS: BP 98/56; PULSE 82; RESP 16; O2SAT 98
[2020-12-27 09:47] VITALS: BP 100/58; PULSE 84; RESP 20; O2SAT 98
[2020-12-27] MEDS: ONDANSETRON INJ 4 MG/2 ML VIAL IV PUSH (09:49)
== END 2020-12-27 10:10 | disposition home or self-care (01) ==
PROVIDERS: PCP Physician Assistant; Visit Provider Internal Medicine Gastroenterology
PROC: 0DJ08ZZ Inspection of Upper Intestinal Tract, Via Natural or Artificial Opening Endoscopic (ICD-10-PCS; CPT 43235; principal; 2020-12-27 08:45)
DX: Z12.11 Encounter for screening for malignant neoplasm of colon (principal); Z86.010 Personal history of colon polyps; K64.8 Other hemorrhoids; M19.90 Unspecified osteoarthritis, unspecified site; J45.909 Unspecified asthma, uncomplicated; F31.9 Bipolar disorder, unspecified; E10.8 Type 1 diabetes mellitus with unspecified complications; M81.0 Age-related osteoporosis without current pathological fracture; K58.9 Irritable bowel syndrome, unspecified; N80.9 Endometriosis, unspecified; K21.9 Gastro-esophageal reflux disease without esophagitis; E10.43 Type 1 diabetes mellitus with diabetic autonomic (poly)neuropathy; K31.84 Gastroparesis; Z95.1 Presence of aortocoronary bypass graft; F17.210 Nicotine dependence, cigarettes, uncomplicated; Z79.51 Long term (current) use of inhaled steroids; E66.9 Obesity, unspecified; Z68.33 Body mass index [BMI] 33.0-33.9, adult; R13.19 Other dysphagia
CPT/HCPCS: 45378; 43239; 82948; 88305; J2001; J2405; J2704; J7120

== ENCOUNTER 2021-01-06 10:34 | Outpatient (CLI) | payer BC, MEDICAID, SELFPAY ==
--- NOTE | ~2021-01-06 | CT_ITS ---
EXAMINATION: CT soft tissue neck w con DATE: 01/06/2021 11:13 INDICATION: Generalized enlarged lymph nodes. TECHNIQUE: Computed tomography (CT) of the neck was performed with 75 mL Omnipaque-350 intravenous co ntrast. Automated exposure control and iterative reconstruction technique were employed. The dose-klaudia gth product was 568.11 mGy-cm. COMPARISON: None FINDINGS: There are no pathologically enlarged lymph nodes. There is no abnormal mass. The cervical c arotid arteries are normal. There is mild thoracic spondylosis. IMPRESSION: 1. No lymphadenopathy. Reviewed, dictated and finalized at location A. IMPRESSION: 1. No lymphadenopathy.
[2021-01-06 11:09] LABS: Estimated Glomerular Filt Rate > 60
== END 2021-01-06 10:35 | disposition home or self-care (01) ==
LOC: ANHIMG 10:38
PROVIDERS: PCP Physician Assistant; Visit Provider Physician Assistant
DX: R59.1 Generalized enlarged lymph nodes (principal); M47.814 Spondylosis without myelopathy or radiculopathy, thoracic region
CPT/HCPCS: 70491; Q9967

== ENCOUNTER 2021-02-07 13:45 | Emergency (ER) | payer BC, MEDICAID, SELFPAY ==
--- NOTE | ~2021-02-07 | XR_ITS ---
EXAMINATION: XR chest 2V DATE: 02/07/2021 14:52 INDICATION: Cough TECHNIQUE: PA and lateral views of the chest were obtained. COMPARISON: Chest radiograph dated 01/13/[address] dated 04/28/2020 FINDINGS: Mildly decreased lung volumes. Opacities at the posterior lower lung zones which could represent pers istent atelectasis/scarring is seen on CT dated 04/28/2020. No pleural effusion or pneumothorax. The c ardiomediastinal silhouette is normal. Mild thoracic spondylosis. Cholecystectomy clips in the right upper quadrant. IMPRESSION: 1. Opacities at the posterior lung bases which could represent atelectasis/scarring although differen tial includes pneumonia or mild pulmonary edema. Reviewed, dictated and finalized at location A. [employer] IMPRESSION: 1. Opacities at the posterior lung bases which could represent atelectasis/scar ring although differential includes pneumonia or mild pulmonary edema.
[2021-02-07 14:14] VITALS: BP 111/72; PULSE 93; RESP 16; TEMP 36.4; O2SAT 98
--- NOTE | 2021-02-07 14:29 | ED.URI ---
HPI - URI/Sore Throat General Chief Complaint: Upper Respiratory Infection Stated Complaint: Cough,Rt Side Pain,Shortness of Breathe,Chest Pain Time Seen by Provider: 02/07/21 14:29 Source: patient Mode of arrival: ambulatory Limitations: no limitations History of Present Illness HPI Narrative: Joy Oliveira is a 50-year-old female with a PMH of asthma, anxiety, GERD, bipolar disorder, IBS, [facility] with complaints of a sore throat cough and shortness of breath. Her O2 sats in triage were 90% she is afebrile and vital signs are stable. She is not tachycardic Related Data Home Medications Medication Instructions Recorded Confirmed cetirizine 10 mg tablet 10 mg PO DAILY 01/17/19 01/24/21 clonazepam 0.5 mg tablet 0.5 mg PO Q6H 01/17/19 01/24/21 dicyclomine 20 mg tablet 20 mg PO PRN PRN 01/17/19 01/24/21 docusate sodium 100 mg capsule 100 mg PO DAILY 01/17/19 01/24/21 estradiol 0.1 mg/24 hr semiweekly 1 patch TRANSDERM 2XW 01/17/19 01/24/21 transdermal patch lamotrigine 200 mg tablet 200 mg PO BID 01/17/19 01/24/21 lifitegrast 5 % eye drops in a 1 drop EACH EYE Q12H 01/17/19 01/24/21 dropperette melatonin 10 mg capsule 10 mg PO DAILY cap 01/17/19 01/24/21 sucralfate 1 gram tablet 1 gm PO Q6H tablet 01/17/19 01/24/21 tamsulosin 0.4 mg capsule 0.4 mg PO DAILY 01/17/19 01/24/21 trazodone 100 mg tablet 100 mg PO DAILY 01/17/19 01/24/21 trimethoprim 100 mg tablet 100 mg PO DAILY 01/17/19 01/24/21 venlafaxine 75 mg tablet,extended 75 mg PO DAILY 01/17/19 01/24/21 release 24 hr metoclopramide HCl 5 mg/5 mL oral 20 mg PO BID ml 03/01/20 01/24/21 solution quetiapine 150 mg tablet,extended 150 mg PO DAILY tablet 03/01/20 01/24/21 release 24 hr carboxymethyl 0.5 %-glycerin 1 1 drp EACH EYE QHS 06/07/20 01/24/21 %-polysorb 80 0.5 %-PF eye dropperette meclizine 12.5 mg tablet 12.5 mg PO TID PRN 06/07/20 01/24/21 prednisolone acetate 1 % eye 1 drp EACH EYE Q12H 06/07/20 01/24/21 drops,suspension rizatriptan 10 mg tablet 10 mg PO ONCE 06/07/20 01/24/21 plecanatide 3 mg tablet 3 mg PO DAILY 07/05/20 01/24/21 topiramate 200 mg tablet 200 mg PO BID 07/05/20 01/24/21 acyclovir 800 mg tablet 800 mg PO QID PRN tablet 10/28/20 01/24/21 nystatin-triamcinolone 1 applic TOPICAL PRN PRN 12/10/20 01/24/21 Allergies Allergy/AdvReac Type Severity Reaction Status Date / Time aspirin Allergy Rash Verified 01/24/21 10:10 azelastine Allergy Itching Verified 01/24/21 10:10 ceftriaxone Allergy Rash Verified 01/24/21 10:10 diclofenac Allergy Rash Verified 01/24/21 10:10 fluconazole Allergy Rash Verified 01/24/21 10:10 Iodinated Contrast Media Allergy Hives Verified 01/24/21 10:10 iodine Allergy Hives Verified 01/24/21 10:10 ioversol Allergy Hives Verified 01/24/21 10:10 meperidine Allergy Rash Verified 01/24/21 10:10 nitrofurantoin Allergy Rash Verified 01/24/21 10:10 silicone Allergy Rash Verified 01/24/21 10:10 sulfamethoxazole AdvReac Vomiting Verified 01/24/21 10:10 Review of Systems Review of Systems: CONSTITUTIONAL: Denies fever, chills, sweats. EYES: Denies visual changes, redness, discharge. ENT: Denies rhinorrhea, has congestion, has sore throat, otalgia. CARDIOVASCULAR: Denies chest pain, palpitations, edema. RESPIRATORY: Complaining of dyspnea, wheezing, has cough GASTROINTESTINAL: Denies abdominal pain, nausea, vomiting, diarrhea. GENITOURINARY: Denies dysuria, hematuria, abnormal discharge SKIN: Denies rash or itching. NEUROLOGIC: Denies numbness, or focal weakness. PSYCHIATRIC: Denies anxiety or depression. [facility] Past Medical History Medical History Abnormal uterine bleeding Ankle fracture Lt. Anorexia Anxiety Arthritis Asthma Bipolar 1 disorder Blind in both eyes Bowel obstruction Bronchitis Chondromalacia of knee Chronic headaches Chronic pancreatitis Colitis Colon polyp Congestion of throat Constipation Depression D
== END 2021-02-07 15:32 | disposition home or self-care (01) ==
PROVIDERS: Emergency Provider Nurse Practitioner; PCP Physician Assistant
DX: J40 Bronchitis, not specified as acute or chronic (principal); B37.0 Candidal stomatitis; Z87.891 Personal history of nicotine dependence; M19.90 Unspecified osteoarthritis, unspecified site; F31.9 Bipolar disorder, unspecified; F41.9 Anxiety disorder, unspecified; K21.9 Gastro-esophageal reflux disease without esophagitis; E10.43 Type 1 diabetes mellitus with diabetic autonomic (poly)neuropathy; K31.84 Gastroparesis; N80.9 Endometriosis, unspecified; R01.1 Cardiac murmur, unspecified; I20.9 Angina pectoris, unspecified; Z86.73 Personal history of transient ischemic attack (TIA), and cerebral infarction without residual deficits; E78.00 Pure hypercholesterolemia, unspecified; M81.0 Age-related osteoporosis without current pathological fracture; G40.909 Epilepsy, unspecified, not intractable, without status epilepticus
CPT/HCPCS: 71046; 99213; G0463

== ENCOUNTER 2021-02-25 12:41 | Outpatient (CLI) | payer BC, MEDICAID, SELFPAY ==
[2021-02-25 13:47] LABS: Albumin Level 4.3 g/dL (3.5-5.1); Anion Gap 12 mmol/L (8-16); Blood Urea Nitrogen 5 mg/dL (7-17); Calcium 9.1 mg/dL (8.4-10.2); Carbon Dioxide 20 mmol/L (22-30); Chloride 109 mmol/L (98-107); Estimated Glomerular Filt Rate > 60; Glucose 109 mg/dL (65-110); Phosphorus 2.9 mg/dL (2.5-4.5); Potassium 4.3 mmol/L (3.4-5.0); Sodium 141 mmol/L (137-145)
[2021-02-25 14:16] LABS: Vitamin D 25 Hydroxy 19.5 ng/mL
[2021-03-01 14:19] LABS: Vitamin D 1,25 (OH)2 Total 63 pg/mL (18-72); Vitamin D2 1,25 (OH)2 <8 pg/mL; Vitamin D3 1,25 (OH)2 63 pg/mL
== END 2021-02-25 12:42 | disposition home or self-care (01) ==
LOC: ANHLAB 12:43
PROVIDERS: PCP Physician Assistant; Visit Provider Internal Medicine Endocrinology, Diabetes & Metabolism
DX: E55.9 Vitamin D deficiency, unspecified (principal); R11.2 Nausea with vomiting, unspecified; R42 Dizziness and giddiness; M85.88 Other specified disorders of bone density and structure, other site
CPT/HCPCS: 36415; 80069; 82306; 82652

== ENCOUNTER 2021-03-06 10:05 | Emergency (ER) | payer BC, MEDICAID, SELFPAY ==
[2021-03-06 10:19] VITALS: BP 93/70; PULSE 92; RESP 16; TEMP 36.9; O2SAT 98
--- NOTE | 2021-03-06 10:28 | ED.EAR ---
HPI - Ear Problem General Chief complaint: Ear Stated complaint: sinus infection Source: patient and RN notes reviewed Limitations: no limitations Related Data Home Medications Medication Instructions Recorded Confirmed cetirizine 10 mg tablet 10 mg PO DAILY 01/17/19 01/24/21 clonazepam 0.5 mg tablet 0.5 mg PO Q6H 01/17/19 01/24/21 dicyclomine 20 mg tablet 20 mg PO PRN PRN 01/17/19 01/24/21 docusate sodium 100 mg capsule 100 mg PO DAILY 01/17/19 01/24/21 estradiol 0.1 mg/24 hr semiweekly 1 patch TRANSDERM 2XW 01/17/19 01/24/21 transdermal patch lamotrigine 200 mg tablet 200 mg PO BID 01/17/19 01/24/21 lifitegrast 5 % eye drops in a 1 drop EACH EYE Q12H 01/17/19 01/24/21 dropperette melatonin 10 mg capsule 10 mg PO DAILY cap 01/17/19 01/24/21 tamsulosin 0.4 mg capsule 0.4 mg PO DAILY 01/17/19 01/24/21 trazodone 100 mg tablet 100 mg PO DAILY 01/17/19 01/24/21 trimethoprim 100 mg tablet 100 mg PO DAILY 01/17/19 01/24/21 venlafaxine 75 mg tablet,extended 75 mg PO DAILY 01/17/19 01/24/21 release 24 hr metoclopramide HCl 5 mg/5 mL oral 20 mg PO BID ml 03/01/20 01/24/21 solution quetiapine 150 mg tablet,extended 150 mg PO DAILY tablet 03/01/20 01/24/21 release 24 hr carboxymethyl 0.5 %-glycerin 1 1 drp EACH EYE QHS 06/07/20 01/24/21 %-polysorb 80 0.5 %-PF eye dropperette meclizine 12.5 mg tablet 12.5 mg PO TID PRN 06/07/20 01/24/21 prednisolone acetate 1 % eye 1 drp EACH EYE Q12H 06/07/20 01/24/21 drops,suspension rizatriptan 10 mg tablet 10 mg PO ONCE 06/07/20 01/24/21 plecanatide 3 mg tablet 3 mg PO DAILY 07/05/20 01/24/21 topiramate 200 mg tablet 200 mg PO BID 07/05/20 01/24/21 acyclovir 800 mg tablet 800 mg PO QID PRN tablet 10/28/20 01/24/21 nystatin-triamcinolone 1 applic TOPICAL PRN PRN 12/10/20 01/24/21 Allergies Allergy/AdvReac Type Severity Reaction Status Date / Time aspirin Allergy Rash Verified 03/06/21 10:16 azelastine Allergy Itching Verified 03/06/21 10:16 ceftriaxone Allergy Rash Verified 03/06/21 10:16 diclofenac Allergy Rash Verified 03/06/21 10:16 fluconazole Allergy Rash Verified 03/06/21 10:16 Iodinated Contrast Media Allergy Hives Verified 03/06/21 10:16 iodine Allergy Hives Verified 03/06/21 10:16 ioversol Allergy Hives Verified 03/06/21 10:16 meperidine Allergy Rash Verified 03/06/21 10:16 nitrofurantoin Allergy Rash Verified 03/06/21 10:16 silicone Allergy Rash Verified 01/24/21 10:10 sulfamethoxazole AdvReac Vomiting Verified 01/24/21 10:10 PMF Past Medical History Medical History Abnormal uterine bleeding Ankle fracture Lt. Anorexia Anxiety Arthritis Asthma Bipolar 1 disorder Blind in both eyes Bowel obstruction Bronchitis Chondromalacia of knee Chronic headaches Chronic pancreatitis Colitis Colon polyp Congestion of throat Constipation Depression Diabetes type I Discoid meniscus of knee DM (diabetes mellitus) Endometriosis Fibroids Gastroparesis GERD (gastroesophageal reflux disease) Heart murmur High cholesterol History of angina History of esophageal dilatation History of GI bleed History of jejunostomy tube placement History of kidney stones History of melena History of pneumonia History of rectal polyps Hx of hiatal hernia Hx of migraines Hx of transient ischemic attack (TIA) Hx: UTI (urinary tract infection) Hypercholesteremia Hypotension, chronic IBS (irritable bowel syndrome) Kidney stones Low blood pressure Nausea Osteoporosis Pancreatitis Right knee pain Seizure Seizures Shingles Stomach ulcer Ulcer UTI (urinary tract infection) Vertigo Surgical History Surgical History H/O left wrist surgery History of ankle surgery Lt. History of appendectomy History of cholecystectomy History of esophagogastroduodenoscopy (EGD) History of hysterectomy History of lithotripsy History of oophorectomy MICHA. History of to
--- NOTE | 2021-03-06 11:14 | ED.URI ---
HPI - URI/Sore Throat General Chief Complaint: Ear Stated Complaint: sinus infection Source: patient and RN notes reviewed Limitations: no limitations History of Present Illness HPI Narrative: The boost vaccinated patient, an overweight non-smoker/nondrinker on multiple meds inc for bipolar, presents with sinus problems. Records reveal that she has had a past noncontributory head CT, MRI which showed the sinuses [done for stroke protocol, 2019 ]. Patient states she has a 1.5-2-week history of nasal congestion, frontal?sinus headache, with postnasal drip. No fever, significant cough, wheeze, pets/triggers; no loss of taste/smell, CP, vomiting/diarrhea, S OB.. Symptoms are mild, unrelieved with OTC preps. Related Data Home Medications Medication Instructions Recorded Confirmed cetirizine 10 mg tablet 10 mg PO DAILY 01/17/19 01/24/21 clonazepam 0.5 mg tablet 0.5 mg PO Q6H 01/17/19 01/24/21 dicyclomine 20 mg tablet 20 mg PO PRN PRN 01/17/19 01/24/21 docusate sodium 100 mg capsule 100 mg PO DAILY 01/17/19 01/24/21 estradiol 0.1 mg/24 hr semiweekly 1 patch TRANSDERM 2XW 01/17/19 01/24/21 transdermal patch lamotrigine 200 mg tablet 200 mg PO BID 01/17/19 01/24/21 lifitegrast 5 % eye drops in a 1 drop EACH EYE Q12H 01/17/19 01/24/21 dropperette melatonin 10 mg capsule 10 mg PO DAILY cap 01/17/19 01/24/21 tamsulosin 0.4 mg capsule 0.4 mg PO DAILY 01/17/19 01/24/21 trazodone 100 mg tablet 100 mg PO DAILY 01/17/19 01/24/21 trimethoprim 100 mg tablet 100 mg PO DAILY 01/17/19 01/24/21 venlafaxine 75 mg tablet,extended 75 mg PO DAILY 01/17/19 01/24/21 release 24 hr metoclopramide HCl 5 mg/5 mL oral 20 mg PO BID ml 03/01/20 01/24/21 solution quetiapine 150 mg tablet,extended 150 mg PO DAILY tablet 03/01/20 01/24/21 release 24 hr carboxymethyl 0.5 %-glycerin 1 1 drp EACH EYE QHS 06/07/20 01/24/21 %-polysorb 80 0.5 %-PF eye dropperette meclizine 12.5 mg tablet 12.5 mg PO TID PRN 06/07/20 01/24/21 prednisolone acetate 1 % eye 1 drp EACH EYE Q12H 06/07/20 01/24/21 drops,suspension rizatriptan 10 mg tablet 10 mg PO ONCE 06/07/20 01/24/21 plecanatide 3 mg tablet 3 mg PO DAILY 07/05/20 01/24/21 topiramate 200 mg tablet 200 mg PO BID 07/05/20 01/24/21 acyclovir 800 mg tablet 800 mg PO QID PRN tablet 10/28/20 01/24/21 nystatin-triamcinolone 1 applic TOPICAL PRN PRN 12/10/20 01/24/21 Allergies Allergy/AdvReac Type Severity Reaction Status Date / Time aspirin Allergy Rash Verified 03/06/21 10:16 azelastine Allergy Itching Verified 03/06/21 10:16 ceftriaxone Allergy Rash Verified 03/06/21 10:16 diclofenac Allergy Rash Verified 03/06/21 10:16 fluconazole Allergy Rash Verified 03/06/21 10:16 Iodinated Contrast Media Allergy Hives Verified 03/06/21 10:16 iodine Allergy Hives Verified 03/06/21 10:16 ioversol Allergy Hives Verified 03/06/21 10:16 meperidine Allergy Rash Verified 03/06/21 10:16 nitrofurantoin Allergy Rash Verified 03/06/21 10:16 silicone Allergy Rash Verified 01/24/21 10:10 sulfamethoxazole AdvReac Vomiting Verified 01/24/21 10:10 Review of Systems Review of Systems: General/Constitutional: No weight loss,fever Eyes: N0: Redness,discharge Ears/Nose/Throat: No: Epistaxis,ear discharge Respiratory: Denies: Hemoptysis Gastrointestinal: No Vomiting, Bleeding-rectal Skin: No Lumps, eruption Neurologic: No Focal Weakness,Sz Hematologic: Denies: Petechiae/Purpura Psychiatric: No: Suicida ideationl All Other Systems: Reviewed and Negative PMFSH Past Medical History Medical History Abnormal uterine bleeding Ankle fracture Lt. Anorexia Anxiety Arthritis Asthma Bipolar 1 disorder Blind in both eyes Bowel obstruction Bronchitis Chondromalacia of knee Chronic headaches Chronic pancreatitis Colitis Colon polyp Congestion of throat Constipation Depression Diabetes type I Discoid meniscus of knee DM (diabetes mellitus) Endometriosis F
== END 2021-03-06 10:50 | disposition home or self-care (01) ==
PROVIDERS: Emergency Provider Emergency Medicine; PCP Internal Medicine
DX: R51.9 Headache, unspecified (principal); Z87.891 Personal history of nicotine dependence; M19.90 Unspecified osteoarthritis, unspecified site; H54.7 Unspecified visual loss; N80.9 Endometriosis, unspecified; K21.9 Gastro-esophageal reflux disease without esophagitis; R01.1 Cardiac murmur, unspecified; Z86.73 Personal history of transient ischemic attack (TIA), and cerebral infarction without residual deficits; E78.00 Pure hypercholesterolemia, unspecified; G40.909 Epilepsy, unspecified, not intractable, without status epilepticus; E10.43 Type 1 diabetes mellitus with diabetic autonomic (poly)neuropathy; K31.84 Gastroparesis
CPT/HCPCS: 99213; G0463

== ENCOUNTER 2021-04-04 11:32 | Outpatient (CLI) | payer BC, MEDICAID, SELFPAY ==
[2021-04-04 12:07] LABS: Anion Gap 8 mmol/L (8-16); Blood Urea Nitrogen 5 mg/dL (7-17); Calcium 9.2 mg/dL (8.4-10.2); Carbon Dioxide 22 mmol/L (22-30); Chloride 109 mmol/L (98-107); Estimated Glomerular Filt Rate > 60; Glucose 93 mg/dL (65-110); Potassium 3.9 mmol/L (3.4-5.0); Sodium 139 mmol/L (137-145)
== END 2021-04-04 11:33 | disposition home or self-care (01) ==
LOC: ANHLAB 11:35
PROVIDERS: PCP Physician Assistant; Visit Provider Internal Medicine Endocrinology, Diabetes & Metabolism
DX: R79.89 Other specified abnormal findings of blood chemistry (principal); M85.80 Other specified disorders of bone density and structure, unspecified site; R42 Dizziness and giddiness
CPT/HCPCS: 36415; 80048

== ENCOUNTER 2021-04-18 10:40 | Outpatient (CLI) | payer BC, MEDICAID, SELFPAY ==
[2021-04-18 12:02] LABS: Anion Gap 7 mmol/L (8-16); Blood Urea Nitrogen 7 mg/dL (7-17); Calcium 9.5 mg/dL (8.4-10.2); Carbon Dioxide 21 mmol/L (22-30); Chloride 110 mmol/L (98-107); Estimated Glomerular Filt Rate > 60; Glucose 91 mg/dL (65-110); Potassium 3.6 mmol/L (3.4-5.0); Sodium 138 mmol/L (137-145)
== END 2021-04-18 10:41 | disposition home or self-care (01) ==
LOC: ANHLAB 10:42
PROVIDERS: PCP Physician Assistant; Visit Provider Internal Medicine Endocrinology, Diabetes & Metabolism
DX: M85.80 Other specified disorders of bone density and structure, unspecified site (principal); R79.89 Other specified abnormal findings of blood chemistry; R42 Dizziness and giddiness
CPT/HCPCS: 36415; 80048

== ENCOUNTER 2021-05-02 10:40 | Outpatient (CLI) | payer BC, MEDICAID, SELFPAY ==
[2021-05-02 11:27] LABS: Anion Gap 6 mmol/L (8-16); Blood Urea Nitrogen 5 mg/dL (7-17); Calcium 9.2 mg/dL (8.4-10.2); Carbon Dioxide 23 mmol/L (22-30); Chloride 110 mmol/L (98-107); Estimated Glomerular Filt Rate > 60; Glucose 102 mg/dL (65-110); Potassium 4.1 mmol/L (3.4-5.0); Sodium 139 mmol/L (137-145)
== END 2021-05-02 10:41 | disposition home or self-care (01) ==
PROVIDERS: PCP Physician Assistant; Visit Provider Internal Medicine Endocrinology, Diabetes & Metabolism
DX: M85.80 Other specified disorders of bone density and structure, unspecified site (principal); R79.89 Other specified abnormal findings of blood chemistry; R42 Dizziness and giddiness
CPT/HCPCS: 36415; 80048

== ENCOUNTER 2021-05-30 10:40 | Outpatient (CLI) | payer BC, MEDICAID, SELFPAY ==
[2021-05-30 11:23] LABS: Anion Gap 9 mmol/L (8-16); Blood Urea Nitrogen 5 mg/dL (7-17); Calcium 8.7 mg/dL (8.4-10.2); Carbon Dioxide 17 mmol/L (22-30); Chloride 114 mmol/L (98-107); Estimated Glomerular Filt Rate > 60; Glucose 101 mg/dL (65-110); Potassium 3.7 mmol/L (3.4-5.0); Sodium 140 mmol/L (137-145)
== END 2021-05-30 10:41 | disposition home or self-care (01) ==
PROVIDERS: PCP Physician Assistant; Visit Provider Internal Medicine Endocrinology, Diabetes & Metabolism
DX: R79.89 Other specified abnormal findings of blood chemistry (principal); M85.88 Other specified disorders of bone density and structure, other site; R42 Dizziness and giddiness
CPT/HCPCS: 36415; 80048; 99212; G0463

== ENCOUNTER 2021-06-03 16:37 | Outpatient (CLI) | payer BC, MEDICAID, SELFPAY ==
[2021-06-03 17:19] LABS: Hematocrit 41.3 % (37.0-47.0); Hemoglobin 13.4 g/dL (12.0-15.0); Mean Corpuscular HGB Conc 32.4 g/dl (32-36); Mean Corpuscular Volume 89.4 fl (80-100); Mean Platelet Volume 9.5 fl (7.4-10.4); Platelet Count Result 336 k/mm3 (150-375); Red Blood Count 4.62 M/mm3 (4.2-5.4); Red Cell Distribution Width 13.3 % (11.5-14.5); White Blood Count 10.6 K/mm3 (4.5-10.0)
[2021-06-03 17:33] LABS: Alanine Aminotransferase 17 U/L (4-35); Albumin Level 4.1 g/dL (3.5-5.1); Alkaline Phosphatase 114 U/L (38-126); Amylase 106 U/L (30-110); Anion Gap 6 mmol/L (8-16); Aspartate Amino Transferase 22 U/L (14-36); Bilirubin,Total 0.2 mg/dL (0.2-1.3); Blood Urea Nitrogen 10 mg/dL (7-17); Carbon Dioxide 21 mmol/L (22-30); Chloride 114 mmol/L (98-107); Estimated Glomerular Filt Rate > 60; Glucose 97 mg/dL (65-110); Lipase 111 U/L (23-300); Potassium 3.8 mmol/L (3.4-5.0); Sodium 141 mmol/L (137-145)
== END 2021-06-03 16:38 | disposition home or self-care (01) ==
PROVIDERS: PCP Physician Assistant; Visit Provider Nurse Practitioner Family
DX: K86.1 Other chronic pancreatitis (principal); R11.0 Nausea; R10.13 Epigastric pain
CPT/HCPCS: 36415; 80053; 82150; 83690; 85027

== ENCOUNTER 2021-06-12 10:16 | Emergency (ER) | payer BC, MEDICAID, SELFPAY ==
--- NOTE | ~2021-06-12 | CT_ITS ---
EXAMINATION: CT abdomen pelvis wo con DATE: 06/12/2021 12:29 INDICATION: Left flank pain TECHNIQUE: Computed tomography (CT) of the abdomen and pelvis was performed without intravenous contr ast. Automated exposure control and iterative reconstruction technique were employed. The dose-length product was 1100.13 mGy-cm. COMPARISON: 04/28/2020 FINDINGS: Dependent predominant mild atelectasis at the bilateral lower lungs. Arch size is normal. No pericard ial or pleural effusion. Persistent small amount of pneumobilia in the nondependent liver likely rela kar to prior cholecystectomy with surgical clips the gallbladder fossa. Spleen, pancreas and bilatera l adrenal glands are normal. Bilateral nonobstructing nephrolithiasis with at least 10 stones in both kidneys the largest a 1.3 similar staghorn calculus in the lower pole calyx of the left kidney and t he remaining measuring less than 4 mm including many clustered in the anterior lower pole calyx of th e right kidney. No ureteral stones or hydronephrosis. No bowel obstruction. Bladder is normal. The ut erus is not identified and has likely been surgically resected. No free intraperitoneal gas or fluid. No pathologically enlarged abdominal or pelvic lymphadenopathy. Small fat-containing umbilical herni a and a couple additional small fat-containing midline supraumbilical ventral hernias. Bones are unre markable. IMPRESSION: 1. Bilateral nonobstructing nephrolithiasis. 2. Small fat-containing umbilical and supraumbilical ventral hernias. Reviewed, dictated and finalized at location A.
[2021-06-12 10:21] VITALS: BP 125/60; PULSE 98; RESP 16; TEMP 36.4; O2SAT 97
[2021-06-12 11:09] LABS: Basophils Absolute Auto 0.1 K/mm3 (0.0-0.1); Basophils Percent Auto 0.7 % (0.2-1.2); Eosinophils Absolute Auto 0.3 K/mm3 (0-0.3); Eosinophils Percent Auto 3.2 % (0-4.4); Hemoglobin 13.6 g/dL (12.0-15.0); Immature Granulocyte Percent A 1.1 % (0-0.5); Lymphocytes Absolute Auto 1.38 K/mm3 (0.9-3.2); Lymphocytes Percent Auto 14.5 % (18.3-44.2); Mean Corpuscular HGB Conc 31.6 g/dl (32-36); Mean Corpuscular Hemoglobin 28.6 pg (26-34); Mean Corpuscular Volume 90.5 fl (80-100); Mean Platelet Volume 9.3 fl (7.4-10.4); Monocytes Absolute Auto 0.8 K/mm3 (0.1-0.6); Monocytes Percent Auto 8.1 % (2.6-8.5); Neutrophils Absolute Auto 6.9 K/mm3 (1.3-6.7); Neutrophils Percent Auto 72.4 % (45.5-73.1); Platelet Count Result 342 k/mm3 (150-375); Red Blood Count 4.75 M/mm3 (4.2-5.4); Red Cell Distribution Width 13.4 % (11.5-14.5); White Blood Count 9.5 K/mm3 (4.5-10.0)
[2021-06-12 11:14] LABS: Add Urine Microscopic? YES; Appearance Urine Cloudy (Clear); Bacteria Urine Trace /hpf; Bilirubin Urine Negative (Negative); Blood Urine Negative (Negative); Color Urine Yellow (Yellow); Glucose Urine UA Negative (Negative); Ketones Urine Negative (Negative); Leukocyte Esterase Ur 2+ LEU/UL (Negative); Mucus Urine Rare /lpf; Nitrate Urine Negative (Negative); Protein Urine Negative (Negative); Squamous Epithelial Cell Urine Many /hpf (Few); Urobilinogen Urine Negative mg/dL (<2.0)
[2021-06-12 11:17] LABS: Specific Grav Ur 1.003 (1.001-1.035)
[2021-06-12 11:18] LABS: Alanine Aminotransferase 19 U/L (4-35); Albumin Level 4.2 g/dL (3.5-5.1); Alkaline Phosphatase 121 U/L (38-126); Anion Gap 7 mmol/L (8-16); Aspartate Amino Transferase 23 U/L (14-36); Bilirubin,Total 0.3 mg/dL (0.2-1.3); Blood Urea Nitrogen 7 mg/dL (7-17); Calcium 8.8 mg/dL (8.4-10.2); Carbon Dioxide 21 mmol/L (22-30); Chloride 111 mmol/L (98-107); Estimated CRCL calculation 94 ml/min; Estimated Glomerular Filt Rate > 60; Glucose 102 mg/dL (65-110); Lipase 250 U/L (23-300); Potassium 3.8 mmol/L (3.4-5.0); Sodium 139 mmol/L (137-145)
--- NOTE | 2021-06-12 11:35 | ED.BACK ---
HPI - Back Pain/Injury General Chief Complaint: Back Pain/Injury Stated Complaint: back pain, nausea, hx kidney stones Time Seen by Provider: 06/12/21 11:09 Source: patient History of Present Illness HPI Narrative: 50-year-old female with history of kidney stones presenting to the emergency department for evaluation of worsening back pain over the past 3 days. Patient reports she has had frequent kidney stones and does have follow-up with Dr. Woodard. Patient states she is currently on Bactrim daily and has not had a urinary tract infection for the past 2 years. Patient does complain of pain with urination but denies any burning with urination. Patient does not suspect that she has a kidney infection. Patient does suspect that she has a kidney stone. Patient denies any incidence of falls or injuries. Patient does report associated nausea. Patient denies any fevers but does feel that her face is currently flushed. Related Data Home Medications Medication Instructions Recorded Confirmed cetirizine 10 mg tablet 10 mg PO DAILY 01/17/19 05/23/21 clonazepam 0.5 mg tablet 0.5 mg PO Q6H 01/17/19 05/23/21 dicyclomine 20 mg tablet 20 mg PO PRN PRN 01/17/19 05/23/21 lamotrigine 200 mg tablet 200 mg PO BID 01/17/19 05/23/21 lifitegrast 5 % eye drops in a 1 drop EACH EYE Q12H 01/17/19 05/23/21 dropperette melatonin 10 mg capsule 10 mg PO DAILY cap 01/17/19 05/23/21 tamsulosin 0.4 mg capsule 0.4 mg PO DAILY 01/17/19 05/23/21 trazodone 100 mg tablet 100 mg PO DAILY 01/17/19 05/23/21 trimethoprim 100 mg tablet 100 mg PO DAILY 01/17/19 05/23/21 venlafaxine 75 mg tablet,extended 75 mg PO DAILY 01/17/19 05/23/21 release 24 hr quetiapine 150 mg tablet,extended 150 mg PO DAILY tablet 03/01/20 05/23/21 release 24 hr carboxymethyl 0.5 %-glycerin 1 1 drp EACH EYE QHS 06/07/20 05/23/21 %-polysorb 80 0.5 %-PF eye dropperette prednisolone acetate 1 % eye 1 drp EACH EYE Q12H 06/07/20 05/23/21 drops,suspension rizatriptan 10 mg tablet 10 mg PO ONCE 06/07/20 05/23/21 topiramate 200 mg tablet 200 mg PO BID 07/05/20 05/23/21 acyclovir 800 mg tablet 400 mg PO QID PRN tablet 06/06/21 calcitriol 0.25 mcg capsule 0.25 mcg PO 3XW cap 06/06/21 diclofenac sodium 1 % topical gel 2 g TOPICAL .PRN g 06/06/21 esomeprazole magnesium 40 mg 40 mg PO BID cap 06/06/21 capsule,delayed release metoclopramide HCl 5 mg/5 mL oral 20 mg PO BID ml 06/06/21 solution Allergies Allergy/AdvReac Type Severity Reaction Status Date / Time aspirin Allergy Rash Verified 06/12/21 10:38 azelastine Allergy Itching Verified 06/12/21 10:38 ceftriaxone Allergy Rash Verified 06/12/21 10:38 fluconazole Allergy Rash Verified 06/12/21 10:38 Iodinated Contrast Media Allergy Hives Verified 06/12/21 10:38 iodine Allergy Hives Verified 06/12/21 10:38 ioversol Allergy Hives Verified 06/12/21 10:38 meperidine Allergy Rash Verified 06/12/21 10:38 nitrofurantoin Allergy Rash Verified 06/12/21 10:38 silicone Allergy Rash Verified 06/12/21 10:38 sulfamethoxazole AdvReac Vomiting Verified 06/06/21 08:32 Review of Systems Review of Systems: CONSTITUTIONAL: Denies fever, chills, or sweats. EYES: Denies visual changes, redness, or discharge. ENT: Denies rhinorrhea, congestion, sore throat, or otalgia. CARDIOVASCULAR: Denies chest pain, palpitations, or edema. RESPIRATORY: Denies cough or dyspnea. GASTROINTESTINAL: Lower abdominal pain with associated nausea and vomiting GENITOURINARY: Unsure of hematuria but does report pain with urination SKIN: Denies rash or itching. MUSCULOSKELETAL: Reports lower back pain NEUROLOGIC: Denies headache, numbness, or weakness. All systems reviewed & are unremarkable except as noted in HPI and below PMFSH Past Medical History Medical History Abnormal uterine bleeding Ankle fracture Lt. Anorexia Anxiety Arthritis Asthma Bipolar 1 disorder Blind in both eyes Bowel obstruction B
[2021-06-12] MEDS: HYDROmorphone HCL INJ (*CRX) 1 MG/ML SYR IV PUSH ×2 (11:51→12:57)
[2021-06-12] MEDS: ONDANSETRON INJ 4 MG/2 ML VIAL IV PUSH (11:51)
[2021-06-12 12:30] VITALS: BP 126/78; PULSE 72; RESP 16; TEMP 36.8; O2SAT 98
[2021-06-12 13:30] VITALS: BP 118/74; PULSE 70; RESP 16; O2SAT 98
[2021-06-12 14:30] VITALS: BP 122/70; PULSE 72; RESP 16; TEMP 36.3; O2SAT 98
[2021-06-12] MEDS: PHENAZOPYRIDINE HCL 100 MG TABLET PO (14:36)
[2021-06-12] MEDS: levoFLOXacin 750 MG TABLET PO (14:38)
== END 2021-06-12 14:47 | disposition home or self-care (01) ==
PROVIDERS: Emergency Provider Emergency Medicine; PCP Physician Assistant
DX: N39.0 Urinary tract infection, site not specified (principal); M54.50 Low back pain, unspecified; J45.909 Unspecified asthma, uncomplicated; F31.9 Bipolar disorder, unspecified; F41.9 Anxiety disorder, unspecified; K31.84 Gastroparesis; K58.9 Irritable bowel syndrome, unspecified; K21.9 Gastro-esophageal reflux disease without esophagitis; M81.0 Age-related osteoporosis without current pathological fracture; E07.9 Disorder of thyroid, unspecified; E78.00 Pure hypercholesterolemia, unspecified; Z86.010 Personal history of colon polyps; Z87.442 Personal history of urinary calculi; Z87.01 Personal history of pneumonia (recurrent); Z87.440 Personal history of urinary (tract) infections; Z86.73 Personal history of transient ischemic attack (TIA), and cerebral infarction without residual deficits; Z95.1 Presence of aortocoronary bypass graft; Z87.891 Personal history of nicotine dependence; K43.9 Ventral hernia without obstruction or gangrene; N20.0 Calculus of kidney
CPT/HCPCS: 36415; 74176; 80053; 81001; 83690; 85025; 87086; 96374; 96375; 96376; 99284; A9270; J1170; J2405

== ENCOUNTER 2021-06-13 08:55 | Outpatient (RCR) | payer BC, MEDICAID, SELFPAY ==
[2021-05-16 09:02] VITALS: BMI 33.9
[2021-05-16 09:23] LABS: Anion Gap 7 mmol/L (8-16); Blood Urea Nitrogen 6 mg/dL (7-17); Calcium 9.2 mg/dL (8.4-10.2); Carbon Dioxide 22 mmol/L (22-30); Chloride 112 mmol/L (98-107); Estimated CRCL calculation 100 ml/min; Estimated Glomerular Filt Rate > 60; Glucose 96 mg/dL (65-110); Potassium 3.8 mmol/L (3.4-5.0); Sodium 141 mmol/L (137-145)
== END 2021-08-01 09:04 | disposition home or self-care (01) ==
LOC: ANHWOC 08:55
PROVIDERS: PCP Physician Assistant; Referring Provider Internal Medicine Endocrinology, Diabetes & Metabolism; Visit Provider Surgery
DX: L30.9 Dermatitis, unspecified (principal)
CPT/HCPCS: 36415; 80048; 99212; A9270; G0463

== ENCOUNTER 2021-06-20 10:42 | Outpatient (CLI) | payer BC, MEDICAID, SELFPAY ==
[2021-06-20 11:34] LABS: Anion Gap 7 mmol/L (8-16); Blood Urea Nitrogen 3 mg/dL (7-17); Calcium 8.5 mg/dL (8.4-10.2); Carbon Dioxide 18 mmol/L (22-30); Chloride 114 mmol/L (98-107); Estimated Glomerular Filt Rate > 60; Glucose 100 mg/dL (65-110); Potassium 3.8 mmol/L (3.4-5.0); Sodium 139 mmol/L (137-145)
== END 2021-06-20 10:43 | disposition home or self-care (01) ==
LOC: ANHLAB 10:44
PROVIDERS: PCP Physician Assistant; Visit Provider Internal Medicine Endocrinology, Diabetes & Metabolism
DX: R79.89 Other specified abnormal findings of blood chemistry (principal); M85.80 Other specified disorders of bone density and structure, unspecified site; R42 Dizziness and giddiness; Z87.898 Personal history of other specified conditions
CPT/HCPCS: 36415; 80048; 83036

== ENCOUNTER 2021-07-04 12:38 | Outpatient (CLI) | payer BC, MEDICAID, SELFPAY ==
[2021-07-07 15:01] LABS: Anti Nuclear Antibody Pattern Nuclear, Speckled
== END 2021-07-04 12:39 | disposition home or self-care (01) ==
LOC: ANHLAB 12:40
PROVIDERS: PCP Physician Assistant; Visit Provider Physician Assistant
DX: R68.2 Dry mouth, unspecified (principal)
CPT/HCPCS: 36415; 86038; 86039

== ENCOUNTER 2021-07-17 10:03 | Emergency (ER) | payer BC, MEDICAID, SELFPAY ==
--- NOTE | ~2021-07-17 | XR_ITS ---
XR knee LT min 4V DATE: 07/17/2021 10:56 INDICATION: Lateral left knee pain. No injury. TECHNIQUE: 5 views COMPARISON: 10/15/2013 left knee FINDINGS: Minimal periarticular spurring of the patella consistent with mild patellofemoral osteoarth ritis. Minimal loss of height of medial compartment joint space. No fracture or dislocation or joint effusion, radiopaque intra-articular loose body or chondrocalcino sis. No periosteal reaction or bone destruction. IMPRESSION: Mild osteoarthritis Reviewed, dictated and finalized at location A. IMPRESSION: Mild osteoarthritis
[2021-07-17 10:10] VITALS: BP 127/73; PULSE 85; RESP 16; TEMP 36.2; O2SAT 97
--- NOTE | 2021-07-17 10:19 | ED.EXTPRO ---
HPI - Extremity Problem General Chief complaint: Extremity Problem,Nontraumatic Stated complaint: left knee injury Time Seen by Provider: 07/17/21 10:19 Source: patient, RN notes reviewed and old records reviewed Mode of arrival: ambulatory Limitations: no limitations History of Present Illness HPI Narrative: 50-year-old female who presents to [facility] using cane to assist with ambulation with complaints of left knee pain with no known related injury for the past one week duration. Patient reports that she has been taking Tylenol, icing her knee, elevating,and has been applying topical Voltaren ointment.She reports that she took some left over Tylenol with codeine last night and was able to sleep then,it has been disturbing her rest. Patient has palpable pain to the lateral aspect of her knee and pain to knee cap area with some swelling noted. Patient is not able to fully bend knee with increase in pain stated. Patient reports she is called her orthopedic doctor and cannot get in until August 08. She reports also that she recently tested positive on CAIT Lab is suppose to see bungy jump master sometime this month also. Location: left and knee Related Data Home Medications Medication Instructions Recorded Confirmed cetirizine 10 mg tablet 10 mg PO DAILY 01/17/19 07/17/21 clonazepam 0.5 mg tablet 0.5 mg PO Q6H 01/17/19 07/17/21 dicyclomine 20 mg tablet 20 mg PO PRN PRN 01/17/19 07/17/21 lamotrigine 200 mg tablet 200 mg PO BID 01/17/19 07/17/21 lifitegrast 5 % eye drops in a 1 drop EACH EYE Q12H 01/17/19 07/17/21 dropperette melatonin 10 mg capsule 10 mg PO DAILY cap 01/17/19 07/17/21 tamsulosin 0.4 mg capsule 0.4 mg PO DAILY 01/17/19 07/17/21 trazodone 100 mg tablet 100 mg PO DAILY 01/17/19 07/17/21 trimethoprim 100 mg tablet 100 mg PO DAILY 01/17/19 07/17/21 venlafaxine 75 mg tablet,extended 75 mg PO DAILY 01/17/19 07/17/21 release 24 hr carboxymethyl 0.5 %-glycerin 1 1 drp EACH EYE QHS 06/07/20 07/17/21 %-polysorb 80 0.5 %-PF eye dropperette prednisolone acetate 1 % eye 1 drp EACH EYE Q12H 06/07/20 07/17/21 drops,suspension rizatriptan 10 mg tablet 10 mg PO ONCE 06/07/20 07/17/21 topiramate 200 mg tablet 200 mg PO BID 07/05/20 07/17/21 acyclovir 800 mg tablet 400 mg PO QID PRN tablet 06/06/21 07/17/21 calcitriol 0.25 mcg capsule 0.25 mcg PO 3XW cap 06/06/21 07/17/21 diclofenac sodium 1 % topical gel 2 g TOPICAL .PRN g 06/06/21 07/17/21 esomeprazole magnesium 40 mg 40 mg PO BID cap 06/06/21 07/17/21 capsule,delayed release metoclopramide HCl 5 mg/5 mL oral 20 mg PO BID ml 06/06/21 07/17/21 solution cariprazine 1.5 mg capsule 1.5 mg PO DAILY 06/27/21 07/17/21 cariprazine [Vraylar] 1.5 mg PO DAILY 07/17/21 07/17/21 Allergies Allergy/AdvReac Type Severity Reaction Status Date / Time aspirin Allergy Rash Verified 07/17/21 10:15 azelastine Allergy Itching Verified 07/17/21 10:15 ceftriaxone Allergy Rash Verified 07/17/21 10:15 fluconazole Allergy Rash Verified 07/17/21 10:15 Iodinated Contrast Media Allergy Hives Verified 07/17/21 10:15 iodine Allergy Hives Verified 07/17/21 10:15 ioversol Allergy Hives Verified 07/17/21 10:15 meperidine Allergy Rash Verified 07/17/21 10:15 nitrofurantoin Allergy Rash Verified 07/17/21 10:15 silicone Allergy Rash Verified 07/17/21 10:15 sulfamethoxazole AdvReac Vomiting Verified 07/17/21 10:15 Review of Systems Review of Systems: CONSTITUTIONAL: Denies fever, chills, or sweats. EYES: Denies visual changes, redness, or discharge.is visually impaired ENT: Denies rhinorrhea, congestion, sore throat, or otalgia. CARDIOVASCULAR: Denies chest pain, palpitations, or edema. RESPIRATORY: Denies cough or dyspnea. GASTROINTESTINAL: Denies abdominal pain, nausea, vomiting, or diarrhea. GENITOURINARY: Denies dysuria or hematuria. SKIN: Denies rash or itching. MUSCULOSKELETAL: Denies back pain,positive for left knee joint pain, or myalgia. NEUROLOGIC: Denies headache, numbness, or weakne
== END 2021-07-17 11:31 | disposition home or self-care (01) ==
PROVIDERS: Emergency Provider Registered Nurse; PCP Physician Assistant
DX: M17.12 Unilateral primary osteoarthritis, left knee (principal); Z87.891 Personal history of nicotine dependence
CPT/HCPCS: 73564; 99213; G0463

== ENCOUNTER 2021-08-16 15:55 | Outpatient (CLI) | payer BC, MEDICAID, SELFPAY ==
--- NOTE | ~2021-08-16 | MR_ITS ---
EXAMINATION: MR knee LT wo con DATE: 08/16/2021 16:34 INDICATION: Left knee pain. TECHNIQUE: Magnetic resonance imaging (MRI) of the left knee was performed without intravenous contra st. Sequences included axial PD-weighted FS FSE, coronal PD-weighted FSE and PD-weighted FS FSE, sagi ttal PD-weighted FSE, and sagittal T2-weighted FS FSE. COMPARISON: Left knee radiographs 07/17/2021 FINDINGS: Medial compartment: Medial meniscus is normal. Medial compartment cartilage is normal. There are tiny osteophytes. Lateral compartment: Lateral meniscus is discoid. Lateral compartment cartilage is normal. There are tiny osteophytes. Patellofemoral compartment: There is cartilage surface irregularity of patellar lateral facet. There is mild subchondral edema-li ke marrow signal intensity of patella at the medial facet. Trochlear cartilage is normal. Osteophytes are noted. Ligaments and tendons: The anterior and posterior cruciate ligaments are normal. Medial collateral ligament and lateral ken ateral ligament complex are normal. There is mild patellar tendinopathy. Fluid: There is no knee joint effusion. There is trace fluid in a Yuan's cyst. There is mild prepatellar bu rsitis. IMPRESSION: 1. Mild patellar chondrosis. Reviewed, dictated and finalized at location A.
== END 2021-08-16 15:56 | disposition home or self-care (01) ==
LOC: ANHIMG 15:56
PROVIDERS: PCP Physician Assistant; Visit Provider Nurse Practitioner Family
DX: M25.562 Pain in left knee (principal); M22.2X2 Patellofemoral disorders, left knee
CPT/HCPCS: 73721

== ENCOUNTER 2021-10-17 08:08 | Outpatient (CLI) | payer BC, MEDICAID, SELFPAY ==
--- NOTE | ~2021-10-17 | XR_ITS ---
XR hand BI arthritis min 3V DATE: 10/17/2021 09:04 INDICATION: Abnormal immune disease lab results TECHNIQUE: 4 views of each hand COMPARISON: None FINDINGS: There is narrowing at some of the interphalangeal joints. No erosive change is detected. No fracture, dislocation, periosteal reaction or bone destruction or chondrocalcinosis. IMPRESSION: Mild osteoarthritis Reviewed, dictated and finalized at location B. IMPRESSION: Mild osteoarthritis
--- NOTE | ~2021-10-17 | XR_ITS ---
XR cervical spine 4-5V DATE: 10/17/2021 09:04 INDICATION: Abnormal uterine disease laboratory result TECHNIQUE: AP, lateral, swimmer's, open-mouth views COMPARISON: None FINDINGS: There is mild levoscoliosis of the cervical and upper thoracic spine. C1 and C2 are normally aligned and the odontoid process is intact. No fracture or dislocation or lock ed facet or prevertebral soft tissue swelling. The cervical interspaces are preserved. IMPRESSION: Mild levoscoliosis; otherwise unremarkable examination Reviewed, dictated and finalized at location B.
--- NOTE | ~2021-10-17 | XR_ITS ---
XR sacroiliac joints min 3V DATE: 10/17/2021 09:04 INDICATION: Abnormal endometrium disease laboratory result TECHNIQUE: AP and bilateral oblique views COMPARISON: None FINDINGS: Normal alignment at the sacroiliac joints. No erosive change or ankylosis. No fracture or d islocation is detected. IMPRESSION: Negative Reviewed, dictated and finalized at Location A. Reviewed, dictated and finalized at location B. IMPRESSION: Negative
--- NOTE | ~2021-10-17 | XR_ITS ---
XR lumbar spine min 4V DATE: 10/17/2021 09:04 INDICATION: Abnormal immune disease lab results TECHNIQUE: AP, lateral, bilateral oblique views, coned lateral lumbosacral view COMPARISON: None FINDINGS: Status post cholecystectomy. Bilateral nephrolithiasis. Normal alignment of the lumbar spine. No fracture or bone destruction, spondylolysis or spondylolisth esis. Lumbar and lumbosacral interspaces are relatively preserved. Mild degenerative spurring of the lumbar spine. Lumbar pedicles are intact. The sacroiliac joints are intact. IMPRESSION: Mild degenerative spurring of the lumbar spine Prominent bilateral nephrolithiasis Status post cholecystectomy Reviewed, dictated and finalized at location B.
[2021-10-17 08:38] LABS: Basophils Percent Auto 0.5 % (0.2-1.2); Eosinophils Absolute Auto 0.2 K/mm3 (0-0.3); Eosinophils Percent Auto 2.5 % (0-4.4); Hematocrit 43.5 % (37.0-47.0); Hemoglobin 13.5 g/dL (12.0-15.0); Immature Granulocyte Absolute 0.07 K/mm3 (0.00-0.031); Immature Granulocyte Percent A 0.8 % (0-0.5); Lymphocytes Absolute Auto 1.31 K/mm3 (0.9-3.2); Lymphocytes Percent Auto 15.4 % (18.3-44.2); Mean Corpuscular Hemoglobin 27.1 pg (26-34); Mean Corpuscular Volume 87.3 fl (80-100); Mean Platelet Volume 9.3 fl (7.4-10.4); Monocytes Absolute Auto 0.6 K/mm3 (0.1-0.6); Monocytes Percent Auto 7.4 % (2.6-8.5); Neutrophils Absolute Auto 6.2 K/mm3 (1.3-6.7); Neutrophils Percent Auto 73.4 % (45.5-73.1); Platelet Count Result 354 k/mm3 (150-375); Red Blood Count 4.98 M/mm3 (4.2-5.4); Red Cell Distribution Width 14.2 % (11.5-14.5); White Blood Count 8.5 K/mm3 (4.5-10.0)
[2021-10-17 08:54] LABS: Alanine Aminotransferase 19 U/L (6-35); Albumin Level 4.3 g/dL (3.5-5.1); Alkaline Phosphatase 122 U/L (38-126); Anion Gap 9 mmol/L (8-16); Aspartate Amino Transferase 19 U/L (14-36); Bilirubin,Total 0.3 mg/dL (0.2-1.3); Blood Urea Nitrogen 6 mg/dL (7-17); CRP 1.1 mg/dL (<1.0); Calcium 8.7 mg/dL (8.4-10.2); Carbon Dioxide 21 mmol/L (22-30); Chloride 111 mmol/L (98-107); Estimated Glomerular Filt Rate > 60; Glucose 102 mg/dL (65-110); Potassium 3.8 mmol/L (3.4-5.0); Sodium 141 mmol/L (137-145); Uric Acid 4.4 mg/dL (2.5-7.5)
[2021-10-17 09:21] LABS: Vitamin D 25 Hydroxy 87.8 ng/mL
[2021-10-17 10:36] LABS: Complement C3 159 mg/dL (88-165); Rheumatoid Factor 12.6 IU/ML (<12)
[2021-10-20 21:39] LABS: Anti Cyclic Citrullinated Pept <16 Units (<20)
[2021-10-21 04:27] LABS: Lupus dRVVT 1:1 Mix Interpreta Not Indicated; Lupus dRVVT Screen 33 sec (<=45); PTT-LA Screen 35 sec (<=40)
[2021-10-24 07:27] LABS: SS-A 7.1; SS-B <1.0
[2021-10-24 07:27] LABS: SM Antibody <1.0; SM/RNP Antibody <1.0
== END 2021-10-17 08:09 | disposition home or self-care (01) ==
LOC: ANHLAB 08:11
PROVIDERS: PCP Physician Assistant; Visit Provider Internal Medicine
DX: R76.8 Other specified abnormal immunological findings in serum (principal); M19.042 Primary osteoarthritis, left hand; M19.041 Primary osteoarthritis, right hand; M77.8 Other enthesopathies, not elsewhere classified; N20.0 Calculus of kidney; Z90.49 Acquired absence of other specified parts of digestive tract; M41.82 Other forms of scoliosis, cervical region
CPT/HCPCS: 36415; 72050; 72110; 72202; 73130; 80053; 82306; 84550; 85025; 85613; 85730; 86140; 86160; 86200; 86225; 86235; 86430

== ENCOUNTER 2021-11-07 14:33 | Emergency (ER) | payer BC, MEDICAID, SELFPAY ==
--- NOTE | ~2021-11-07 | CT_ITS ---
EXAMINATION: CT abdomen pelvis wo con DATE: 11/07/2021 17:09 INDICATION: Right flank pain TECHNIQUE: Computed tomography (CT) of the abdomen and pelvis was performed without intravenous contr ast. Automated exposure control and iterative reconstruction technique were employed. The dose-length product was 512.22 mGy-cm. COMPARISON: 06/12/2021 FINDINGS: Glass opacities and linear bandlike opacities at the bilateral lower lobes and favor atelectasis over pulmonary edema or pneumonia. Heart size is normal. No pericardial or pleural effusion. Cholecystect andrzej clips the gallbladder fossa. Liver, spleen and bilateral adrenal glands are normal. Again seen is bilateral nephrolithiasis with stones scattered throughout multiple calyces within both kidneys, the largest at the lower pole of the left kidney measuring up to 1.2 cm. No ureteral stones or hydroneph rosis. Bladder is normal. The uterus is not identified and has likely been surgically resected. No ab normal bowel wall thickening or obstruction. The appendix is not visualized. No pericecal inflammator y change to suggest acute appendicitis. No free intraperitoneal gas or fluid. No pathologically enlar ged abdominal or pelvic lymphadenopathy. Unchanged small fat-containing umbilical and midline supraum bilical ventral hernias along a midline surgical scar. Bones are unremarkable. IMPRESSION: 1. Bilateral nonobstructing nephrolithiasis. No ureteral stones or hydronephrosis. 2. Small fat-containing umbilical and supraumbilical ventral hernias. Reviewed, dictated and finalized at location A. IMPRESSION: 1. Bilateral nonobstructing nephrolithiasis. No ureteral stones or hydronephros is. 2. Small fat-containing umbilical and supraumbilical ventral hernias.
[2021-11-07 14:43] VITALS: BP 119/81; PULSE 99; RESP 16; TEMP 36.7; O2SAT 99
[2021-11-07 14:55] LABS: Basophils Absolute Auto 0.1 K/mm3 (0.0-0.1); Basophils Percent Auto 0.8 % (0.2-1.2); Eosinophils Absolute Auto 0.1 K/mm3 (0-0.3); Eosinophils Percent Auto 1.6 % (0-4.4); Hematocrit 43.6 % (37.0-47.0); Hemoglobin 13.6 g/dL (12.0-15.0); Immature Granulocyte Absolute 0.02 K/mm3 (0.00-0.031); Immature Granulocyte Percent A 0.3 % (0-0.5); Lymphocytes Absolute Auto 0.91 K/mm3 (0.9-3.2); Lymphocytes Percent Auto 14.2 % (18.3-44.2); Mean Corpuscular HGB Conc 31.2 g/dl (32-36); Mean Corpuscular Volume 86.7 fl (80-100); Monocytes Absolute Auto 0.6 K/mm3 (0.1-0.6); Monocytes Percent Auto 8.6 % (2.6-8.5); Neutrophils Absolute Auto 4.8 K/mm3 (1.3-6.7); Neutrophils Percent Auto 74.5 % (45.5-73.1); Platelet Count Result 297 k/mm3 (150-375); Red Blood Count 5.03 M/mm3 (4.2-5.4); Red Cell Distribution Width 14.2 % (11.5-14.5); White Blood Count 6.4 K/mm3 (4.5-10.0)
[2021-11-07 15:05] LABS: Alanine Aminotransferase 24 U/L (6-35); Albumin Level 4.2 g/dL (3.5-5.1); Alkaline Phosphatase 121 U/L (38-126); Anion Gap 11 mmol/L (8-16); Aspartate Amino Transferase 24 U/L (14-36); Bilirubin,Total 0.3 mg/dL (0.2-1.3); Blood Urea Nitrogen 4 mg/dL (7-17); Carbon Dioxide 20 mmol/L (22-30); Chloride 109 mmol/L (98-107); Estimated CRCL calculation 77 ml/min; Estimated Glomerular Filt Rate > 60; Glucose 111 mg/dL (65-110); Lipase 85 U/L (23-300); Potassium 4.2 mmol/L (3.4-5.0); Sodium 140 mmol/L (137-145)
[2021-11-07 16:06] VITALS: BP 125/67; PULSE 89; RESP 18; TEMP 36.8; O2SAT 95
[2021-11-07] MEDS: ONDANSETRON INJ 4 MG/2 ML VIAL IV PUSH (16:40)
[2021-11-07] MEDS: MORPHINE SULFATE (*CRX) 4 MG/ML INJ IV PUSH (16:41)
[2021-11-07 16:50] VITALS: BP 126/67; PULSE 90; RESP 18; O2SAT 95
--- NOTE | 2021-11-07 16:53 | ED.GENADULT ---
HPI - General Adult General Chief complaint: Abdominal Pain Stated complaint: right flank pain Time Seen by Provider: 11/07/21 15:56 History of Present Illness HPI narrative: Patient is a 51-year-old female who presents ER with right-sided flank pain. Began last night. Radiates into her right upper quadrant. Worse with deep breath and with eating and movement and palpation. Has history of kidney stones as well as pancreatitis. No fevers or chills or sweats. Has noticed she has been peeing a little bit more frequently today. No dysuria or foul odor. No lower abdominal discomfort. Has found no alleviating factors for her discomfort. She did try taking Tylenol with hydrocodone. Related Data Home Medications Medication Instructions Recorded Confirmed cetirizine 10 mg tablet (Zyrtec) 10 mg PO DAILY 01/17/19 10/24/21 clonazepam 0.5 mg tablet 0.5 mg PO Q6H 01/17/19 10/24/21 dicyclomine 20 mg tablet 20 mg PO PRN PRN Abdominal 01/17/19 10/24/21 Discomfort lamotrigine 200 mg tablet 200 mg PO BID 01/17/19 10/24/21 lifitegrast 5 % eye drops in a 1 drop ophthalmic (eye) Q12H 01/17/19 10/24/21 dropperette (Xiidra) melatonin 10 mg capsule 10 mg PO DAILY 01/17/19 10/24/21 tamsulosin 0.4 mg capsule 0.4 mg PO DAILY 01/17/19 09/12/21 trazodone 100 mg tablet 100 mg PO DAILY 01/17/19 10/24/21 trimethoprim 100 mg tablet 100 mg PO DAILY 01/17/19 10/24/21 venlafaxine 75 mg tablet,extended 75 mg PO DAILY 01/17/19 10/24/21 release 24 hr carboxymethyl 0.5 %-glycerin 1 1 drp EACH EYE QHS 06/07/20 10/24/21 %-polysorb 80 0.5 %-PF eye dropperette (Refresh Optive Luis-3 (PF)) prednisolone acetate 1 % eye 1 drp EACH EYE Q12H 06/07/20 10/24/21 drops,suspension rizatriptan 10 mg tablet 10 mg PO ONCE 06/07/20 10/24/21 topiramate 200 mg tablet 200 mg PO BID 07/05/20 10/24/21 diclofenac sodium 1 % topical gel 2 g topical .PRN 06/06/21 10/24/21 esomeprazole magnesium 40 mg 40 mg PO BID 06/06/21 10/24/21 capsule,delayed release (Nexium) metoclopramide HCl 5 mg/5 mL oral 20 mg PO BID 06/06/21 10/24/21 solution cariprazine 1.5 mg capsule 1.5 mg PO DAILY 07/17/21 10/24/21 (Vraylar) acyclovir 800 mg tablet 400 mg PO BID PRN shingles 08/01/21 10/24/21 docusate sodium 100 mg capsule 100 mg PO DAILY 09/12/21 10/24/21 (Colace) polyethylene glycol 3350 17 17 g PO DAILY 09/12/21 10/24/21 gram/dose oral powder (Miralax) Allergies Allergy/AdvReac Type Severity Reaction Status Date / Time aspirin Allergy Rash Verified 11/07/21 16:24 azelastine Allergy Itching Verified 11/07/21 16:24 ceftriaxone Allergy Rash Verified 11/07/21 16:24 fluconazole Allergy Rash Verified 11/07/21 16:24 Iodinated Contrast Media Allergy Hives Verified 11/07/21 16:24 iodine Allergy Hives Verified 11/07/21 16:24 ioversol Allergy Hives Verified 11/07/21 16:24 meperidine Allergy Rash Verified 11/07/21 16:24 nitrofurantoin Allergy Rash Verified 11/07/21 16:24 silicone Allergy Rash Verified 11/07/21 16:24 Review of Systems Review of Systems: All systems reviewed & are unremarkable except as noted in HPI and below Constitutional: Constitutional: Denies chills, Denies fatigue and Denies fever(s) ENT: Denies nasal congestion and Denies sore throat Cardiovascular: Cardiovascular: Denies chest pain, Denies rapid heart rate and Denies radiating jaw, neck or arm pain Respiratory: Respiratory: Denies cough, Denies dyspnea and Denies wheezing Gastrointestinal: Gastrointestinal: Reports abdominal pain, Denies diarrhea, Reports nausea and Denies vomiting Genitourinary: Genitourinary: Denies hematuria, Reports nocturia, Denies dysuria and Reports flank pain PMFSH Past Medical History Medical History Abnormal uterine bleeding Acute bronchitis CAIT positive Ankle fracture Lt. Anorexia Anxiety Arthritis Asthma Asthma Back pain Bipolar 1 disorder Blind in both eyes Blindness Bowel obstruction Bronchi
[2021-11-07 17:44] LABS: Appearance Urine Clear (Clear); Bilirubin Urine Negative (Negative); Blood Urine Negative (Negative); Color Urine Yellow (Yellow); Glucose Urine UA Negative (Negative); Ketones Urine Negative (Negative); Leukocyte Esterase Ur 1+ LEU/UL (Negative); Nitrate Urine Negative (Negative); Protein Urine Negative (Negative); Specific Grav Ur 1.015 (1.001-1.035); Urobilinogen Urine 0.2 mg/dL (<2.0); pH Urine 7.5 (5.0-9.0)
[2021-11-07 17:59] LABS: RBC Urine 0-2 /hpf (0-2); Squamous Epithelial Cell Urine Rare /hpf (Few); WBC Urine 0-3 /hpf
[2021-11-07 18:02] LABS: Add Urine Microscopic? YES
[2021-11-07 19:03] VITALS: BP 128/64; PULSE 92; RESP 18; O2SAT 95
[2021-11-07 19:33] VITALS: BP 113/74; PULSE 86; RESP 14; O2SAT 97
== END 2021-11-07 19:34 | disposition home or self-care (01) ==
PROVIDERS: Emergency Medicine; Emergency Provider Emergency Medicine; PCP Physician Assistant
DX: R10.9 Unspecified abdominal pain (principal); M19.90 Unspecified osteoarthritis, unspecified site; J45.909 Unspecified asthma, uncomplicated; F31.9 Bipolar disorder, unspecified; K21.9 Gastro-esophageal reflux disease without esophagitis; Z87.440 Personal history of urinary (tract) infections; G40.909 Epilepsy, unspecified, not intractable, without status epilepticus
CPT/HCPCS: 36415; 74176; 80053; 81001; 83690; 85025; 96374; 96375; 99284; J2270; J2405

== ENCOUNTER 2021-11-14 12:08 | Outpatient (CLI) | payer BC, MEDICAID, SELFPAY ==
[2021-11-14 12:27] LABS: Hematocrit 43.7 % (37.0-47.0); Hemoglobin 13.4 g/dL (12.0-15.0); Mean Corpuscular HGB Conc 30.7 g/dl (32-36); Mean Corpuscular Hemoglobin 26.6 pg (26-34); Mean Corpuscular Volume 86.7 fl (80-100); Mean Platelet Volume 9.2 fl (7.4-10.4); Platelet Count Result 370 k/mm3 (150-375); Red Blood Count 5.04 M/mm3 (4.2-5.4); Red Cell Distribution Width 14.3 % (11.5-14.5); White Blood Count 9.8 K/mm3 (4.5-10.0)
[2021-11-14 12:42] LABS: Alanine Aminotransferase 25 U/L (6-35); Albumin Level 4.3 g/dL (3.5-5.1); Alkaline Phosphatase 127 U/L (38-126); Amylase 129 U/L (30-110); Anion Gap 4 mmol/L (8-16); Aspartate Amino Transferase 23 U/L (14-36); Bilirubin,Total 0.2 mg/dL (0.2-1.3); Blood Urea Nitrogen 6 mg/dL (7-17); Calcium 9.2 mg/dL (8.4-10.2); Carbon Dioxide 22 mmol/L (22-30); Chloride 110 mmol/L (98-107); Estimated Glomerular Filt Rate > 60; Glucose 104 mg/dL (65-110); Lipase 153 U/L (23-300); Potassium 4.5 mmol/L (3.4-5.0); Sodium 136 mmol/L (137-145)
== END 2021-11-14 12:09 | disposition home or self-care (01) ==
LOC: ANHLAB 12:11
PROVIDERS: PCP Physician Assistant; Visit Provider Nurse Practitioner Family
DX: R10.11 Right upper quadrant pain (principal)
CPT/HCPCS: 36415; 80053; 82150; 83690; 85027

== ENCOUNTER 2021-11-17 16:34 | Inpatient (IN) | payer BC, MEDICAID, SELFPAY ==
[2021-11-17] VITALS (23 sets, daily range): BP systolic 102–127; BP diastolic 54–78; PULSE 65–85; RESP 13–19; TEMP 36.4–36.7; O2SAT 91–98
--- NOTE | ~2021-11-17 | XR_ITS ---
XR chest 2V DATE: 11/17/2021 17:32 INDICATION: Midsternal chest pain. History of hypotension. TECHNIQUE: 2 views COMPARISON: 02/07/2021 PA and lateral chest FINDINGS: There is colon interposition between the diaphragm and liver, also present on 02/07/2021. Status post cholecystectomy. Normal heart size. No hilar or mediastinal enlargement. No pulmonary infiltrate or consolidation, ple ural effusion or pulmonary vascular congestion or pneumothorax is detected. IMPRESSION: No active cardiopulmonary disease Status post cholecystectomy Reviewed, dictated and finalized at location [facility].
--- NOTE | ~2021-11-17 | CT_ITS ---
EXAMINATION: CT abdomen pelvis wo con DATE: 11/17/2021 23:18 INDICATION: Epigastric abdominal pain, right upper quadrant abdominal pain, radiating to chest and up per back TECHNIQUE: Computed tomography (CT) of the abdomen and pelvis was performed without intravenous contr ast. Automated exposure control and iterative reconstruction technique were employed. Exam dose: 989 .61 mGy-cm total exam DLP. COMPARISON: 11/07/2021 CT abdomen pelvis FINDINGS: Chronic discoid atelectasis and/or scarring at the lung bases also present on 11/07/2021. Trace pericardial fluid. Cardiomegaly. Status post cholecystectomy. The liver, spleen, pancreas, and adrenal glands are unremarkable. No lore e duct or pancreatic duct dilatation. Prominent bilateral nonobstructive nephrolithiasis. No ureteral calculus or hydroureteronephrosis. Normal caliber of the abdominal aorta. No intraperitoneal or retroperitoneal or pelvic mass lesion or adenopathy or ascites. Status post hysterectomy. The urinary bladder is unremarkable. No bowel obstruction or intraperitoneal free air. Small fat-containing umbilical hernia. There are several supraumbilical midline fat-containing ventra l abdominal wall hernias. Included skeletal structures are unremarkable. IMPRESSION: Extensive bilateral nephrolithiasis Status post cholecystectomy Status post hysterectomy Reviewed, dictated and finalized at Location [facility]. Reviewed, dictated and finalized at location B.
--- NOTE | 2021-11-17 17:06 | ECG_ITS ---
Measurements Intervals [place] Rate: 80 P: 40 WI: 154 QRS: 23 QRSD: 80 T: 14 QT: 366 QTc: 424 Interpretive Statements SINUS RHYTHM BASELINE ARTIFACT- I, II, III, AVR, AVL, AVF, V6 NORMAL ECG COMPARED TO ECG 06/09/2019 13:48:05 NO SIGNIFICANT CHANGES Electronically Signed On 11-17-2021 20:39:01 CDT by Adi Patel D.O.
[2021-11-17 17:36] LABS: Basophils Absolute Auto 0.1 K/mm3 (0.0-0.1); Basophils Percent Auto 0.6 % (0.2-1.2); Eosinophils Absolute Auto 0.2 K/mm3 (0-0.3); Eosinophils Percent Auto 1.9 % (0-4.4); Hematocrit 44.4 % (37.0-47.0); Hemoglobin 13.9 g/dL (12.0-15.0); Lymphocytes Absolute Auto 1.81 K/mm3 (0.9-3.2); Mean Corpuscular HGB Conc 31.3 g/dl (32-36); Mean Corpuscular Hemoglobin 26.7 pg (26-34); Mean Corpuscular Volume 85.4 fl (80-100); Mean Platelet Volume 9.3 fl (7.4-10.4); Monocytes Absolute Auto 0.7 K/mm3 (0.1-0.6); Neutrophils Absolute Auto 7.2 K/mm3 (1.3-6.7); Neutrophils Percent Auto 71.5 % (45.5-73.1); Platelet Count Result 405 k/mm3 (150-375); White Blood Count 10.1 K/mm3 (4.5-10.0)
[2021-11-17 17:48] LABS: Alanine Aminotransferase 24 U/L (6-35); Albumin Level 4.6 g/dL (3.5-5.1); Alkaline Phosphatase 130 U/L (38-126); Anion Gap 8 mmol/L (8-16); Aspartate Amino Transferase 23 U/L (14-36); Bilirubin,Total 0.3 mg/dL (0.2-1.3); Blood Urea Nitrogen 7 mg/dL (7-17); Calcium 9.3 mg/dL (8.4-10.2); Carbon Dioxide 23 mmol/L (22-30); Chloride 109 mmol/L (98-107); Estimated CRCL calculation 79 ml/min; Estimated Glomerular Filt Rate > 60; Glucose 108 mg/dL (65-110); Lipase 101 U/L (23-300); Potassium 3.9 mmol/L (3.4-5.0); Prothrombin Time 12.9 Seconds (11.1-14.7); Sodium 140 mmol/L (137-145)
[2021-11-17 17:49] LABS: Partial Thromboplastin Time 27.9 SECONDS (22.3-36.8)
[2021-11-17 18:02] LABS: Troponin I < 0.012 ng/mL (0.000-0.034)
[2021-11-17 21:45] LABS: Troponin I < 0.012 ng/mL (0.000-0.034)
--- NOTE | 2021-11-17 22:46 | ED.ABDPAIN ---
HPI - Abdominal Pain General Chief Complaint: Chest Pain Stated Complaint: RUQ pain Time Seen by Provider: 11/17/21 22:01 Source: patient Mode of arrival: ambulatory Limitations: no limitations History of Present Illness HPI narrative: This is a 51 year old female that presents to the ER for RUQ pain ongoing over the last couple of weeks. Associated with nausea and vomiting today. Reports the pain is sharp in nature and radiates into her epigastrium and chest. She has been evaluated for this in the ER as well as by her GI doctor. Has been taking her Nexium as prescribed. She has also been on a liquid diet as prescribed by her GI doctor. Reports she has not been able to keep anything down today. Denies fever or shortness of breath. Related Data Home Medications Medication Instructions Recorded Confirmed cetirizine 10 mg tablet (Zyrtec) 10 mg PO DAILY 01/17/19 11/14/21 clonazepam 0.5 mg tablet 0.5 mg PO Q6H 01/17/19 11/14/21 lamotrigine 200 mg tablet 200 mg PO BID 01/17/19 11/14/21 lifitegrast 5 % eye drops in a 1 drop ophthalmic (eye) Q12H 01/17/19 11/14/21 dropperette (Xiidra) melatonin 10 mg capsule 10 mg PO DAILY 01/17/19 11/14/21 tamsulosin 0.4 mg capsule 0.4 mg PO DAILY 01/17/19 11/14/21 trazodone 100 mg tablet 100 mg PO DAILY 01/17/19 11/14/21 trimethoprim 100 mg tablet 100 mg PO DAILY 01/17/19 11/14/21 venlafaxine 75 mg tablet,extended 75 mg PO DAILY 01/17/19 11/14/21 release 24 hr carboxymethyl 0.5 %-glycerin 1 1 drp EACH EYE QHS 06/07/20 11/14/21 %-polysorb 80 0.5 %-PF eye dropperette (Refresh Optive Luis-3 (PF)) prednisolone acetate 1 % eye 1 drp EACH EYE Q12H 06/07/20 11/14/21 drops,suspension rizatriptan 10 mg tablet 10 mg PO ONCE 06/07/20 11/14/21 topiramate 200 mg tablet 200 mg PO BID 07/05/20 11/14/21 diclofenac sodium 1 % topical gel 2 g topical .PRN 06/06/21 11/14/21 esomeprazole magnesium 40 mg 40 mg PO BID 06/06/21 11/14/21 capsule,delayed release (Nexium) metoclopramide HCl 5 mg/5 mL oral 20 mg PO BID 06/06/21 11/14/21 solution cariprazine 1.5 mg capsule 1.5 mg PO DAILY 07/17/21 11/14/21 (Vraylar) acyclovir 800 mg tablet 400 mg PO BID PRN shingles 08/01/21 11/14/21 docusate sodium 100 mg capsule 100 mg PO DAILY 09/12/21 11/14/21 (Colace) polyethylene glycol 3350 17 17 g PO DAILY 09/12/21 11/14/21 gram/dose oral powder (Miralax) Allergies Allergy/AdvReac Type Severity Reaction Status Date / Time aspirin Allergy Rash Verified 11/14/21 11:11 azelastine Allergy Itching Verified 11/14/21 11:11 ceftriaxone Allergy Rash Verified 11/14/21 11:11 fluconazole Allergy Rash Verified 11/14/21 11:11 Iodinated Contrast Media Allergy Hives Verified 11/14/21 11:11 iodine Allergy Hives Verified 11/14/21 11:11 ioversol Allergy Hives Verified 11/14/21 11:11 meperidine Allergy Rash Verified 11/14/21 11:11 nitrofurantoin Allergy Rash Verified 11/14/21 11:11 silicone Allergy Rash Verified 11/14/21 11:11 Review of Systems Review of Systems: CONSTITUTIONAL: Denies fever GASTROINTESTINAL: Reports abdominal pain, nausea, vomiting GENITOURINARY: Denies dysuria All systems reviewed & are unremarkable except as noted in HPI and below PMFSH Past Medical History Medical History (Updated 11/18/21 @ 03:23 by Silvina Villanueva PA-C) Abnormal uterine bleeding Acute bronchitis CAIT positive Ankle fracture Lt. Anorexia Anxiety Arthritis Asthma Asthma Back pain Bipolar 1 disorder Blind in both eyes Blindness Bowel obstruction Bronchitis Chondromalacia of knee Chronic headaches Chronic nausea Chronic pancreatitis Colitis Colon polyp Congestion of throat Constipation Cough Degenerative joint disease of right knee Depression Dermatitis Discoid meniscus of knee Dizziness DVT prophylaxis Dysphagia Endometriosis Fibroids Gastroparesis Generalized OA GERD (gastroesophageal reflux disease) Heart murmur Herpes zoster High cholesterol High serum parathyroid hormone (PTH) Hist
[2021-11-17] MEDS: METOCLOPRAMIDE HCL INJ 10 MG/2 ML VIAL IV PUSH (23:26)
[2021-11-17] MEDS: diphenhydrAMINE HCl INJ 50 MG/ML VIAL 25 MG IV PUSH (23:26)
[2021-11-17] MEDS: FAMOTIDINE 20 MG/2 ML VIAL IV PUSH (23:26)
[2021-11-17] MEDS: SODIUM CHLORIDE 0.9% IV 1,000 ML 999 ML IV CONT (23:28)
[2021-11-17 23:51] LABS: Troponin I < 0.012 ng/mL (0.000-0.034)
[2021-11-18] VITALS (43 sets, daily range): BP systolic 92–123; BP diastolic 45–97; PULSE 58–86; RESP 10–29; TEMP 36–36.9; O2SAT 92–98; BMI 36.0
[2021-11-18] MEDS: ONDANSETRON INJ 4 MG/2 ML VIAL IV PUSH ×4 (01:57→20:45)
[2021-11-18] MEDS: MORPHINE SULFATE (*CRX) 4 MG/ML INJ IV PUSH (01:58)
[2021-11-18] MEDS: SODIUM CHLORIDE 0.9% IV 1,000 ML 125 ML IV CONT ×2 (03:39→16:28)
--- NOTE | 2021-11-18 03:40 | PC.NURSE ---
Called report to floor, JOSE DANIEL erickson said will return call.
--- NOTE | 2021-11-18 03:55 | PC.NURSE ---
Called floor for report both charge and RN busy, will try again in 15 minutes.
[2021-11-18] MEDS: PROMETHAZINE HCL 25 MG/ML AMPUL 12.5 MG IV PUSH (04:16)
--- NOTE | 2021-11-18 04:17 | PC.NURSE ---
Pt given 12.5mg promethazine IV push diluted in 20mL of NS over 15 mins.
--- NOTE | 2021-11-18 05:17 | ADMGEN ---
This patient, Joy Oliveira, was admitted to 2 Medical Room 242-01. Patient/family oriented to hospital policies and general routines including ID bracelet, bed and alarms, visiting hours, pain management, procedures, bathroom and other care routines, personal items, smoking policy, room service/diet, and visiting hours. Information on how to activate the Rapid Response Team has been discussed. Patient/Family are encouraged to report perceived risks to care and to ask questions if they do not understand what they are told or what they should do.
--- NOTE | 2021-11-18 06:31 | PC.NURSE ---
Dr Barone notified pt is a moderate suicide risk. Pt does not have an active plan and is currently seeing a psychiatrist for SI therefore no intervention is needed at this time ([id number]) per provider. Dr Barone also notified pt having severe pain, rated 8/10 by pt. No further pain medication will be ordered at this time. Tylenol given for pain.
[2021-11-18] MEDS: PANTOPRAZOLE SODIUM IV 40 MG VIAL IV PUSH (08:01)
--- NOTE | 2021-11-18 08:03 | PM.IMHP ---
H&P: HPI History of Present Illness Date/Time: 11/18/21 08:03 Chief Complaint: Abdominal pain, nausea & vomiting. Narrative: Joy Oliveira is a 51 yo female with a significant number of medical comorbidities, including IBS, GERD, bulimia, gastroparesis, chronic pancreatitis, asthma and bipolar I disorder. She presented to the ED for evaluation of epigastric abdominal pain that is sharp and radiating to the right flank and back. She reports the pain is constant and has been present for several weeks. She has been evaluated in our ED and in the outpatient GI office. She reports associated nausea and vomiting. She reports taking Nexium and eating a clear liquid diet since Sunday of this week, as instructed by her [employer]. She denies changes in medications or sick contacts. She was concerned about her heart. Additionally, she reports her symptoms worsened on Sunday and , prompting her ED visit. She also reports vague symptoms, such as cough, shortness of breath with exertion, chronic migraines without aura, and generalized weakness. She denies vomiting is related to her eating disorder or migraines and reports seeing her mental health counselors routinely. In the ED, vitals were stable. Lab work showed unremarkable CBC, CMP and lipase. Amylase and alk phos are minimally elevated. Cardiac enzymes were negative x3. EKG showed sinus rhythm with baseline artifact unchanged from 2019. Chest x-ray and CT abdomen/pelvis showed extensive bilateral, nonobstructing nephrolithiasis, which she reports is chronic. Dr. Gustafson, GI, was consulted in the ED and agreed to see the patient. Patient was referred for observation. Review of Systems Review of Systems: All systems reviewed & are unremarkable except as noted in HPI and below PMFSH Past Medical History Medical History (Updated 11/18/21 @ 18:09 by Deja Reynaga, DARIAN) Abnormal uterine bleeding Adrenal insufficiency CAIT positive Ankle fracture Lt. 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 Dizziness Dysphagia Endometriosis s/p total hysterectomy Feeding by G-tube Refeeding via G-tube, removed 2014 Fibroids Gastroparesis Generalized OA GERD (gastroesophageal reflux disease) Heart murmur Herpes zoster High serum parathyroid hormone (PTH) History of angina History of esophageal dilatation History of rectal polyps Hx of corneal abrasion Hx of hiatal hernia Hyperlipidemia Hypotension, chronic IBS (irritable bowel syndrome) Inflammatory arthritis Keratitis Kidney stones Legal blindness Low vitamin D level Medial meniscus tear Osteoporosis Other fatigue Patellofemoral pain syndrome Seizures Last seizure 2017 Stomach ulcer w/GIB Tendinitis of left rotator cuff Type 2 diabetes mellitus without complications Diet-controlled, previously on metformin Vertigo Vitamin D deficiency Zoster ophthalmicus Surgical History Surgical History (Updated 11/18/21 @ 17:50 by Deja Reynaga, [employer]) H/O left wrist surgery carpal tunnel History of ankle surgery Lt. History of appendectomy History of cholecystectomy History of hysterectomy Total hysterectomy History of lithotripsy History of oophorectomy MICHA. History of tonsillectomy Hx of cardiac cath x2. No cardiac stents Family History Family History Sibling Family history of migraine headaches Mother Family history of cardiovascular disease Family history of hypercholesterolemia Hypertension Father Fam
[2021-11-18] MEDS: LACTATED RINGERS 1,000 ML 150 ML IV CONT (08:49)
--- NOTE | 2021-11-18 09:01 | WPDANESEPPF ---
Anes - Initial Pre Proc Eval Procedure: Operation Date: 11/18/21 14:00 Proposed Procedures p Esophagogastroduodenoscopy - Wilber Gustafson MD Date/Time: 11/18/21 09:01 Surgeon: Taylor Barone DO Pre Op Diagnosis: intractable nausea and vomiting, ileus Patient Data Age: 51 Gender: F Height: 1.6 m Weight: 92.3 kg Last Vital Signs Temp 97.0 F L 11/18/21 08:47 Pulse 63 11/18/21 08:47 Resp 20 11/18/21 08:47 BP 123/68 11/18/21 08:47 Pulse Ox 97 11/18/21 08:47 O2 Del Method Room Air 11/18/21 08:47 Allergies Allergy/AdvReac Type Severity Reaction Status Date / Time aspirin Allergy Rash Verified 11/18/21 06:19 azelastine Allergy Itching Verified 11/18/21 06:19 ceftriaxone Allergy Rash Verified 11/18/21 06:19 fluconazole Allergy Rash Verified 11/18/21 06:19 Iodinated Contrast Media Allergy Hives Verified 11/18/21 06:19 iodine Allergy Hives Verified 11/18/21 06:19 ioversol Allergy Hives Verified 11/18/21 06:19 meperidine Allergy Rash Verified 11/18/21 06:19 nitrofurantoin Allergy Rash Verified 11/18/21 06:19 silicone Allergy Rash Verified 11/18/21 06:19 Home Medications Medication Instructions Recorded Confirmed Type cetirizine 10 mg tablet (Zyrtec) 10 mg PO DAILY 01/17/19 11/18/21 History clonazepam 0.5 mg tablet 0.5 mg PO Q6H 01/17/19 11/18/21 History lamotrigine 200 mg tablet 200 mg PO BID 01/17/19 11/18/21 History lifitegrast 5 % eye drops in a 1 drop ophthalmic (eye) Q12H 01/17/19 11/18/21 History dropperette (Xiidra) melatonin 10 mg capsule 10 mg PO DAILY 01/17/19 11/18/21 History tamsulosin 0.4 mg capsule 0.4 mg PO DAILY 01/17/19 11/18/21 History trazodone 100 mg tablet 100 mg PO DAILY 01/17/19 11/18/21 History trimethoprim 100 mg tablet 100 mg PO DAILY 01/17/19 11/18/21 History venlafaxine 75 mg tablet,extended 75 mg PO DAILY 01/17/19 11/18/21 History release 24 hr carboxymethyl 0.5 %-glycerin 1 1 drp EACH EYE QHS 06/07/20 11/18/21 History %-polysorb 80 0.5 %-PF eye dropperette (Refresh Optive Luis-3 (PF)) prednisolone acetate 1 % eye 1 drp EACH EYE Q12H 06/07/20 11/18/21 History drops,suspension albuterol sulfate 2.5 mg/3 mL 2.5 mg (3 mL) inhalation Q4-6H PRN 01/24/21 11/18/21 Rx (0.083 %) solution for nebulization shortness of breath or wheezing #90 mL albuterol sulfate 90 mcg/actuation 1 puff inhalation Q4-6H PRN 01/24/21 11/18/21 Rx aerosol inhaler (ProAir HFA) Shortness Of Breath #8.5 grams ipratropium bromide 42 mcg (0.06 2 spray intranasal BID 4 days #15 03/06/21 11/18/21 Rx %) nasal spray mL nystatin-triamcinolone 100,000 See Rx Instructions .Route 03/17/21 11/18/21 Rx unit/g-0.1 % topical cream .COMPLEX #30 grams hfcjdu-crmrfovo-awdzgco 2 cap PO QID PRN chronic 05/23/21 11/18/21 Rx 10,000-32,000-42,000 unit pancreatitis 1 month #240 caps capsule,delayed rel sucralfate 1 gram tablet See Rx Instructions .Route 05/23/21 11/18/21 Rx .COMPLEX #120 tabs diclofenac sodium 1 % topical gel 2 g topical .PRN 06/06/21 11/18/21 History esomeprazole magnesium 40 mg 40 mg PO BID 06/06/21 11/18/21 History capsule,delayed release (Nexium) metoclopramide HCl 5 mg/5 mL oral 20 mg PO BID 06/06/21 11/18/21 History solution plecanatide 3 mg tablet (Trulance) 3 mg PO DAILY #90 tabs 06/09/21 11/18/21 Rx ezetimibe 10 mg tablet (Zetia) 10 mg PO DAILY #30 tabs 07/10/21 11/18/21 Rx rosuvastatin 40 mg tablet (Crestor) 40 mg PO DAILY #30 tabs 07/10/21 11/18/21 Rx cariprazine 1.5 mg capsule 1.5 mg PO DAILY 07/17/21 11/18/21 History (Vraylar) promethazine 12.5 mg tablet 12.5 mg PO Q6H PRN nausea and 07/20/21 11/18/21 Rx vomiting #90 tabs acyclovir 800 mg tablet 400 mg PO BID PRN shingles 08/01/21 11/18/21 History fluticasone 500 mcg-salmeterol 50 See Rx Instructions .Route 08/11/21 11/18/21 Rx mcg/dose blistr powdr for .COMPLEX #60 ea inhalation (Advair Diskus) montelukast 10 mg tablet 10 mg PO QHS #30 tabs 08/22/21
--- NOTE | 2021-11-18 09:11 | WPDGICN ---
Assessment and Plan Assessment and plan (1) Intractable nausea and vomiting: Code(s): R11.2 - Nausea with vomiting, unspecified Status: Acute Assessment and Plan: chronic but last few days worsened she is on medication for gerd and gastroparesis will proceed with egd and biopsies CT scan reviewed without major findings (2) Right upper quadrant pain: Code(s): R10.11 - Right upper quadrant pain Status: Acute Assessment and Plan: CT scan no major findings (3) Gastroparesis: Code(s): K31.84 - Gastroparesis Status: Acute Assessment and Plan: on reglan and antiemetics (4) Chronic pancreatitis: Code(s): K86.1 - Other chronic pancreatitis Status: Acute Assessment and Plan: lipase normal (5) Bipolar 1 disorder: Code(s): F31.9 - Bipolar disorder, unspecified Status: Acute GI Consult Note Consult date/time: 11/18/21 09:11 Reason for consult: nausea and vomiting HPI: Joy Oliveira is a 51 year old female with long standing history of GERD (on nexium 40 mg BID, carafate and reglan 20 mg BID for gastroparesis- confirmed with abnormal GES), chronic pancreatitis with zenpen 2 tablets with meals and at bedtime, promethazine 12.5 PRN for chronic nausea), previous cholecystectomy and also hx of eating disorder with previous g-tube placement for anorexia that was removed 3 years ago (had bulimia and anorexia- used to dump food using g-tube). She has chronic pain but lately has been having more discomfort in epigastric and right upper quadrant pain along with nausea and decrease appetite. Recent imaging and blood work unremarkable. She came to ER, repeat CT scan a/p without major findings to explain symptoms. Last EGD and colonoscopy 2020 unremarkable. Review of Systems Review of Systems: All systems reviewed & are unremarkable except as noted in HPI and below Constitutional: Constitutional: Denies chills, Denies fatigue and Denies fever(s) Eyes: Eyes: Denies blurry vision ENT: Denies nasal congestion and Denies sore throat Cardiovascular: Cardiovascular: Denies chest pain, Denies rapid heart rate and Denies radiating jaw, neck or arm pain Respiratory: Respiratory: Denies cough, Denies dyspnea and Denies wheezing Gastrointestinal: Gastrointestinal: Reports abdominal pain, Denies diarrhea, Reports nausea and Denies vomiting Genitourinary: Genitourinary: Denies hematuria, Reports nocturia, Denies dysuria and Reports flank pain Integumentary/Breasts: Skin/Breast: Denies dry skin Neurologic: Denies Abnormal speech present Psychiatric: Psychiatric: Reports anxiety [facility] Past Medical History Medical History (Updated 11/18/21 @ 03:23 by Silvina Villanueva PA-C) Abnormal uterine bleeding Acute bronchitis CAIT positive Ankle fracture Lt. Anorexia Anxiety Arthritis Asthma Asthma Back pain Bipolar 1 disorder Blind in both eyes Blindness Bowel obstruction Bronchitis Chondromalacia of knee Chronic headaches Chronic nausea Chronic pancreatitis Colitis Colon polyp Congestion of throat Constipation Cough Degenerative joint disease of right knee Depression Dermatitis Discoid meniscus of knee Dizziness DVT prophylaxis Dysphagia Endometriosis Fibroids Gastroparesis Generalized OA GERD (gastroesophageal reflux disease) Heart murmur Herpes zoster High cholesterol High serum parathyroid hormone (PTH) History of angina History of esophageal dilatation History of GI bleed History of jejunostomy tube placement History of kidney stones History of melena History of pneumonia History of prediabetes History of rectal polyps Hx of hiatal hernia Hx of migraines Hx of transient ischemic attack (TIA) Hx: UTI (urinary tract infection) Hypercholesteremia Hyperlipidemia Hypotension, chronic IBS (irritable bowel syndrome) Inflammatory arthritis Kidney stones Left knee pain Low blood pressure Low vitamin D level Medial meniscus tea
[2021-11-18] MEDS: PROMETHAZINE HCL 25 MG/ML AMPUL IM ×2 (10:30→23:05)
[2021-11-18] MEDS: lamoTRIgine 100 MG TABLET 200 MG PO (16:38)
[2021-11-18] MEDS: DICYCLOMINE HCL 10 MG CAPSULE 20 MG PO ×2 (16:38→20:45)
[2021-11-18] MEDS: SUCRALFATE 1 GM TABLET PO ×2 (16:38→20:46)
[2021-11-18] MEDS: FLUDROCORTISONE ACETATE 0.1 MG TABLET PO (16:38)
[2021-11-18] MEDS: TOLNAFTATE 1% POWDER 45 GM BTL 1 APPLIC TOPICAL (16:39)
[2021-11-18] MEDS: METOCLOPRAMIDE HCL 10 MG/10 ML SOLN UDC 20 MG PO (16:39)
[2021-11-18] MEDS: clonazePAM (*CRX) 0.5 MG TABLET PO ×2 (16:39→23:03)
--- NOTE | 2021-11-18 18:12 | PHAR ---
DRUG NAME: NEERU INGREDIENTS: CARIPRAZINE -- 1.5 MG RELATED DOCUMENTS: DRUGDEX EVALUATIONS - CARIPRAZINE COLOR: WHITE IMPRINT: FL 1.5 FORM: ORAL CAPSULE
--- NOTE | 2021-11-18 18:14 | PHAR ---
DRUG NAME: JEROMY INGREDIENTS: PLECANATIDE -- 3 MG RELATED DOCUMENTS: DRUGDEX EVALUATIONS - PLECANATIDE COLOR: WHITE TO OFF-WHITE SHAPE: HO-CHUNK IMPRINT: 3 , SP FORM: ORAL TABLET
[2021-11-18] MEDS: FLUTICASONE/SALMETEROL 230-21 MCG INHALER 1 PUFF 2 PUFF INHALATION (20:27)
[2021-11-18] MEDS: prednisoLONE ACETATE 1% OPHTH 5 ML 1 DROP EACH EYE (20:45)
[2021-11-18] MEDS: ARTIFICIAL TEARS OPHTH SOLN 15 ML BOTTLE 1 DROP EACH EYE (20:45)
[2021-11-18] MEDS: ERGOCALCIFEROL 50,000 UNIT CAPSULE 50000 UNITS PO (20:46)
[2021-11-18] MEDS: MELATONIN 5 MG TABLET 10 MG PO (20:46)
[2021-11-18] MEDS: MONTELUKAST SODIUM 10 MG TABLET PO (20:46)
[2021-11-19] VITALS (9 sets, daily range): BP systolic 110–124; BP diastolic 63–65; PULSE 60–83; RESP 16–20; TEMP 36.7–37.2; O2SAT 94–97
[2021-11-19] MEDS: SODIUM CHLORIDE 0.9% IV 1,000 ML 125 ML IV CONT (01:30)
[2021-11-19] MEDS: ONDANSETRON INJ 4 MG/2 ML VIAL IV PUSH ×3 (03:40→23:40)
[2021-11-19] MEDS: ALBUTEROL SULFATE NEB 2.5 MG/0.5 ML INH (04:13)
[2021-11-19 05:09] LABS: Hemoglobin A1C 5.2 % (<5.7)
[2021-11-19] MEDS: clonazePAM (*CRX) 0.5 MG TABLET PO ×4 (05:31→23:38)
[2021-11-19] MEDS: DOCUSATE SODIUM 100 MG CAPSULE PO (08:19)
[2021-11-19] MEDS: DICYCLOMINE HCL 10 MG CAPSULE 20 MG PO ×4 (08:19→20:00)
[2021-11-19] MEDS: FLUDROCORTISONE ACETATE 0.1 MG TABLET PO ×2 (08:20→17:11)
[2021-11-19] MEDS: EZETIMIBE 10 MG TABLET PO (08:20)
[2021-11-19] MEDS: lamoTRIgine 100 MG TABLET 200 MG PO ×2 (08:21→17:11)
[2021-11-19] MEDS: METOCLOPRAMIDE HCL 10 MG/10 ML SOLN UDC 20 MG PO ×2 (08:22→17:11)
[2021-11-19] MEDS: PANTOPRAZOLE SODIUM IV 40 MG VIAL IV PUSH (08:23)
[2021-11-19] MEDS: polyethylene glycoL 3350 17 GM POWD.PACK PO (08:24)
[2021-11-19] MEDS: ROSUVASTATIN 10 MG TABLET 40 MG PO (08:26)
[2021-11-19] MEDS: prednisoLONE ACETATE 1% OPHTH 5 ML 1 DROP EACH EYE ×2 (08:26→20:01)
[2021-11-19] MEDS: SUCRALFATE 1 GM TABLET PO ×4 (08:27→20:01)
[2021-11-19] MEDS: TAMSULOSIN HCL 0.4 MG CAPSULE PO (08:28)
[2021-11-19] MEDS: VENLAFAXINE HCL XR 75 MG CAP.ER.24H PO (08:29)
[2021-11-19] MEDS: TRIMETHOPRIM 100 MG TABLET PO (08:29)
[2021-11-19] MEDS: TOLNAFTATE 1% POWDER 45 GM BTL 1 APPLIC TOPICAL ×2 (08:30→17:10)
[2021-11-19] MEDS: FLUTICASONE/SALMETEROL 230-21 MCG INHALER 1 PUFF 2 PUFF INHALATION ×2 (09:57→20:10)
[2021-11-19] MEDS: PROMETHAZINE HCL 25 MG/ML AMPUL IM ×2 (10:09→19:50)
--- NOTE | 2021-11-19 10:20 | WPDANESPN ---
Anes - Prog Note Post-Op Date/Time: 11/19/21 10:20 Vital Signs: Last Vital Signs Temp 36.7 C 11/19/21 04:02 Pulse 83 11/19/21 04:14 Resp 18 11/19/21 04:14 BP 124/64 11/19/21 04:02 Pulse Ox 94 11/19/21 09:58 O2 Del Method Room Air 11/19/21 09:58 Pain Score (VAS): 0 I/O: Intake & Output 11/18/21 11/19/21 11/19/21 23:59 07:59 15:59 Intake Total 400 1300 240 Output Total 1400 600 Balance -1000 700 240 Laboratory Tests 11/17/21 17:19 11/17/21 17:19 11/19/21 04:36 Hemoglobin A1c 5.2 Patient Feedback: Patient satisfied with anesthetic care.
[2021-11-19] MEDS: ACETAMINOPHEN 325 MG TABLET 650 MG PO ×3 (12:36→21:31)
--- NOTE | 2021-11-19 15:24 | PM.IMPN ---
Progress Note: A&P Assessment and Plan (1) Intractable nausea and vomiting: Code(s): R11.2 - Nausea with vomiting, unspecified Status: Acute Assessment and Plan: Intractable N/V may be 2/2 gastroparesis, GERD, h/o gallbladder disease, chronic pancreatitis, nephrolithiasis, psychiatric diseases/eating disorder, chronic migraines, ileus, IBS, or polypharmacy. GI consulted and appreciate recommendations. DDX: s/p cholecystectomy - no common bile duct dilation or LFT abnormality except minimally elevated alk phos. Unlikely GERD - no gastritis on EGD, no PPI and carafate Gastroparesis - continue reglan, check HbA1c, diabetes diet controlled per patient. chronic pancreatitis - no pancreatic fat stranding or edema on CT, lipase normal, amylase elevation likely from vomiting. Continue pancreatic enzymes. Nephrolithiasis - CT with bilateral nonobstructing stones, 11/07 unremarkable, pain is more localized to RUQ and epigastric region. Continue flomax. Chronic migraines - pt denies nausea/vomiting corresponding w/headaches Ileus - + bowel sounds, BM , No abd distention and CT reread without dilated loops of small or large bowel. Ambulate. IBS - resume bentyl before meals and bedtime. Continue plecanatide, miralax and colace. psychiatric disease/eating disorder - continue medications and monitor for s/s anorexia/bulimia. Patient reports counseling appointments for eating disorder and depression every few weeks. ?polypharmacy - patient is on 25+ oral scheduled and PRN medications, possible symptoms are related to medications. Given her chronic, multiple medical conditions, will defer to her PCP for addressing polypharmacy. Symptoms persisting however patient appears comfortable. Appreciate GI's recommendations. (2) Right upper quadrant pain: Code(s): R10.11 - Right upper quadrant pain Status: Acute Assessment and Plan: GI consulted. Continue pain control and management as above. Unchanged. (3) Ileus: Code(s): K56.7 - Ileus, unspecified Status: Acute Assessment and Plan: Unlikely cause of abd pain, N/V. Last BM am (11/17/21). Overnight [facility] read of CT: Possible fluid of the rectum which is distended but nondilated could indicate ileus; not noted on re-read. Ambulate 6 times daily Reglan PO BID scheduled. Monitor diet tolerance. (4) IBS (irritable bowel syndrome): Code(s): K58.9 - Irritable bowel syndrome without diarrhea Status: Chronic Assessment and Plan: Likely contributing to abd pain. Continue medications for constipation - miralax, plecanatide, and colace. Schedule Bentyl 20 mg QID (5) Bilateral kidney stones: Code(s): N20.0 - Calculus of kidney Status: Chronic Assessment and Plan: Chronic, nonobstructing on CT scan. Continue flomax. No cva tenderness or lower abd pain suggesting pain 2/2 passing kidney stones. (6) Asthma: Code(s): J45.909 - Unspecified asthma, uncomplicated Status: Chronic Assessment and Plan: Not in acute exacerbation. Continue maintenance inhalers. PRN duonebs for SOB or wheezing. Continue Singular. (7) GERD (gastroesophageal reflux disease): Code(s): K21.9 - Gastro-esophageal reflux disease without esophagitis Status: Chronic Assessment and Plan: Continue PPI and carafate. 11/18/21 EGD without gastritis or ulcerations. (8) Gastroparesis: Code(s): K31.84 - Gastroparesis Status: Chronic Assessment and Plan: Continue Reglan BID (9) Bipolar 1 disorder: Code(s): F31.9 - Bipolar disorder, unspecified Status: Chronic Assessment and Plan: Continue home medications - Vraylar, clonazepam, lamictal, trazadone, Effexor at home doses. Patient may bring in home medications not available on formulary. (10) Chronic pancreatitis: Code(s): K86.1 - Other chronic pancrea
[2021-11-19] MEDS: MELATONIN 5 MG TABLET 10 MG PO (20:00)
[2021-11-19] MEDS: ARTIFICIAL TEARS OPHTH SOLN 15 ML BOTTLE 1 DROP EACH EYE (20:01)
[2021-11-19] MEDS: MONTELUKAST SODIUM 10 MG TABLET PO (20:01)
[2021-11-19] MEDS: traZODone HCL 50 MG TABLET 100 MG PO (21:31)
[2021-11-19] MEDS: ALBUTEROL SULFATE NEB 2.5 MG/3 ML INH INHALATION (22:06)
[2021-11-20] MEDS: PROMETHAZINE HCL 25 MG/ML AMPUL IM (02:27)
[2021-11-20] MEDS: ACETAMINOPHEN 325 MG TABLET 650 MG PO ×2 (02:27→06:40)
[2021-11-20 03:17] VITALS: BP 104/65; PULSE 67; RESP 18; TEMP 36.1; O2SAT 95
[2021-11-20 05:13] LABS: Basophils Absolute Auto 0.1 K/mm3 (0.0-0.1); Basophils Percent Auto 0.5 % (0.2-1.2); Eosinophils Absolute Auto 0.2 K/mm3 (0-0.3); Eosinophils Percent Auto 2.1 % (0-4.4); Hematocrit 40.7 % (37.0-47.0); Hemoglobin 12.5 g/dL (12.0-15.0); Immature Granulocyte Absolute 0.05 K/mm3 (0.00-0.031); Immature Granulocyte Percent A 0.5 % (0-0.5); Lymphocytes Absolute Auto 1.24 K/mm3 (0.9-3.2); Lymphocytes Percent Auto 12.8 % (18.3-44.2); Mean Corpuscular HGB Conc 30.7 g/dl (32-36); Mean Corpuscular Hemoglobin 26.5 pg (26-34); Mean Corpuscular Volume 86.2 fl (80-100); Mean Platelet Volume 9.3 fl (7.4-10.4); Monocytes Absolute Auto 0.8 K/mm3 (0.1-0.6); Monocytes Percent Auto 8.2 % (2.6-8.5); Neutrophils Absolute Auto 7.4 K/mm3 (1.3-6.7); Neutrophils Percent Auto 75.9 % (45.5-73.1); Platelet Count Result 315 k/mm3 (150-375); Red Blood Count 4.72 M/mm3 (4.2-5.4); Red Cell Distribution Width 14.1 % (11.5-14.5); White Blood Count 9.7 K/mm3 (4.5-10.0)
[2021-11-20] MEDS: clonazePAM (*CRX) 0.5 MG TABLET PO ×2 (05:19→12:41)
[2021-11-20] MEDS: ONDANSETRON INJ 4 MG/2 ML VIAL IV PUSH (05:19)
[2021-11-20 05:20] LABS: Alanine Aminotransferase 24 U/L (6-35); Alkaline Phosphatase 111 U/L (38-126); Anion Gap 15 mmol/L (8-16); Aspartate Amino Transferase 60 U/L (14-36); Bilirubin,Total 0.4 mg/dL (0.2-1.3); Blood Urea Nitrogen 6 mg/dL (7-17); Calcium 8.4 mg/dL (8.4-10.2); Carbon Dioxide 22 mmol/L (22-30); Chloride 106 mmol/L (98-107); Estimated CRCL calculation 88 ml/min; Estimated Glomerular Filt Rate > 60; Glucose 94 mg/dL (65-110); Potassium 3.6 mmol/L (3.4-5.0); Sodium 143 mmol/L (137-145)
[2021-11-20] MEDS: DICYCLOMINE HCL 10 MG CAPSULE 20 MG PO ×2 (08:07→12:40)
[2021-11-20] MEDS: EZETIMIBE 10 MG TABLET PO (08:08)
[2021-11-20] MEDS: FLUDROCORTISONE ACETATE 0.1 MG TABLET PO (08:08)
[2021-11-20] MEDS: DOCUSATE SODIUM 100 MG CAPSULE PO (08:08)
[2021-11-20] MEDS: lamoTRIgine 100 MG TABLET 200 MG PO (08:10)
[2021-11-20] MEDS: METOCLOPRAMIDE HCL 10 MG/10 ML SOLN UDC 20 MG PO (08:10)
[2021-11-20] MEDS: polyethylene glycoL 3350 17 GM POWD.PACK PO (08:11)
[2021-11-20] MEDS: prednisoLONE ACETATE 1% OPHTH 5 ML 1 DROP EACH EYE (08:12)
[2021-11-20] MEDS: ROSUVASTATIN 10 MG TABLET 40 MG PO (08:12)
[2021-11-20] MEDS: TRIMETHOPRIM 100 MG TABLET PO (08:13)
[2021-11-20] MEDS: VENLAFAXINE HCL XR 75 MG CAP.ER.24H PO (08:13)
[2021-11-20] MEDS: TAMSULOSIN HCL 0.4 MG CAPSULE PO (08:13)
[2021-11-20] MEDS: TOLNAFTATE 1% POWDER 45 GM BTL 1 APPLIC TOPICAL (08:13)
[2021-11-20] MEDS: SUCRALFATE 1 GM TABLET PO ×2 (08:13→12:41)
[2021-11-20] MEDS: PANTOPRAZOLE SODIUM IV 40 MG VIAL IV PUSH (08:15)
[2021-11-20] MEDS: FLUTICASONE/SALMETEROL 230-21 MCG INHALER 1 PUFF 2 PUFF INHALATION (08:21)
[2021-11-20] MEDS: ONDANSETRON HCL ODT 4 MG TABLET PO (12:40)
--- NOTE | 2021-11-21 16:55 | PM.DS ---
DS: Admitting Diagnosis Discharge Date 11/20/21 1655 Admitting Diagnosis Intractable nausea and vomiting RUQ pain Ileus DS: Discharge Diagnosis Discharge Diagnosis (1) Intractable nausea and vomiting: Code(s): R11.2 - Nausea with vomiting, unspecified Status: Acute Assessment and Plan: Intractable N/V may be 2/2 gastroparesis, GERD, h/o gallbladder disease, chronic pancreatitis, nephrolithiasis, psychiatric diseases/eating disorder, chronic migraines, ileus, IBS, or polypharmacy. GI consulted and appreciate recommendations. DDX: s/p cholecystectomy - no common bile duct dilation or LFT abnormality except minimally elevated alk phos. Unlikely GERD - no gastritis on EGD, no PPI and carafate Gastroparesis - continue reglan, check HbA1c, diabetes diet controlled per patient. chronic pancreatitis - no pancreatic fat stranding or edema on CT, lipase normal, amylase elevation likely from vomiting. Continue pancreatic enzymes. Nephrolithiasis - CT with bilateral nonobstructing stones, 11/07 unremarkable, pain is more localized to RUQ and epigastric region. Continue flomax. Chronic migraines - pt denies nausea/vomiting corresponding w/headaches Ileus - + bowel sounds, BM , No abd distention and CT reread without dilated loops of small or large bowel. Ambulate. IBS - resume bentyl before meals and bedtime. Continue plecanatide, miralax and colace. psychiatric disease/eating disorder - continue medications and monitor for s/s anorexia/bulimia. Patient reports counseling appointments for eating disorder and depression every few weeks. ?polypharmacy - patient is on 25+ oral scheduled and PRN medications, possible symptoms are related to medications. Given her chronic, multiple medical conditions, will defer to her PCP for addressing polypharmacy. Symptoms persisting however patient appears comfortable. Appreciate GI's recommendations. (2) Right upper quadrant pain: Code(s): R10.11 - Right upper quadrant pain Status: Acute Assessment and Plan: GI consulted. Continue pain control and management as above. Imaging negative for acute disease. (3) Ileus: Code(s): K56.7 - Ileus, unspecified Status: Acute Assessment and Plan: Unlikely cause of abd pain, N/V. Last BM am (11/17/21). Overnight [facility] read of CT: Possible fluid of the rectum which is distended but nondilated could indicate ileus; not noted on re-read. Ambulate 6 times daily Reglan PO BID scheduled. (4) IBS (irritable bowel syndrome): Code(s): K58.9 - Irritable bowel syndrome without diarrhea Status: Chronic Assessment and Plan: Likely contributing to abd pain. Continue medications for constipation - miralax, plecanatide, and colace. Schedule Bentyl 20 mg QID (5) Bilateral kidney stones: Code(s): N20.0 - Calculus of kidney Status: Chronic Assessment and Plan: Chronic, nonobstructing on CT scan. Continue flomax. No cva tenderness or lower abd pain suggesting pain 2/2 passing kidney stones. (6) GERD (gastroesophageal reflux disease): Code(s): K21.9 - Gastro-esophageal reflux disease without esophagitis Status: Chronic Assessment and Plan: Continue PPI and carafate. 11/18/21 EGD without gastritis or ulcerations. (7) Gastroparesis: Code(s): K31.84 - Gastroparesis Status: Chronic Assessment and Plan: Continue Reglan BID (8) Bipolar 1 disorder: Code(s): F31.9 - Bipolar disorder, unspecified Status: Chronic Assessment and Plan: Continue home medications - Vraylar, clonazepam, lamictal, trazadone, Effexor at home doses. Patient may bring in home medications not available on formulary. (9) Chronic pancreatitis: Code(s): K86.1 - Other chronic pancreatitis Status: Chronic Assessment and Plan: Continue pancreatic enzymes at home dose with meal
== END 2021-11-20 13:02 | disposition home or self-care (01) | DRG 392 ==
LOC: ANHED 11-18 03:23 → ANH2MED 11-18 03:31
PROVIDERS: Emergency Medicine; Internal Medicine Gastroenterology; Nurse Practitioner Family; Admitting Provider Internal Medicine; Emergency Provider Emergency Medicine; PCP Physician Assistant; Visit Provider Internal Medicine
PROC: 0DJ08ZZ Inspection of Upper Intestinal Tract, Via Natural or Artificial Opening Endoscopic (ICD-10-PCS; CPT 43235; principal; 2021-11-18 14:00)
DX: R11.2 Nausea with vomiting, unspecified (principal); F50.2 Bulimia nervosa; K86.1 Other chronic pancreatitis; K56.7 Ileus, unspecified; T50.915A Adverse effect of multiple unspecified drugs, medicaments and biological substances, initial encounter; E11.43 Type 2 diabetes mellitus with diabetic autonomic (poly)neuropathy; K31.84 Gastroparesis; K58.9 Irritable bowel syndrome, unspecified; N20.0 Calculus of kidney; K21.9 Gastro-esophageal reflux disease without esophagitis; F31.9 Bipolar disorder, unspecified; M19.90 Unspecified osteoarthritis, unspecified site; M81.0 Age-related osteoporosis without current pathological fracture; M85.80 Other specified disorders of bone density and structure, unspecified site; J45.909 Unspecified asthma, uncomplicated; E55.9 Vitamin D deficiency, unspecified; G43.909 Migraine, unspecified, not intractable, without status migrainosus; H54.8 Legal blindness, as defined in USA; E66.9 Obesity, unspecified; Z68.36 Body mass index [BMI] 36.0-36.9, adult; Z90.49 Acquired absence of other specified parts of digestive tract; Z90.710 Acquired absence of both cervix and uterus; Z95.1 Presence of aortocoronary bypass graft; Z87.891 Personal history of nicotine dependence
CPT/HCPCS: 36415; 71046; 74176; 80053; 83036; 83690; 84443; 84484; 85025; 85610; 85730; 88305; 93005; 94640; 96361; 96365; 96372; 96375; 96376; 99285; A9270; C9113; G0378; J0131; J1200; J2270; J2405; J2550; J2704; J2765; J7030; J7120

== ENCOUNTER 2022-01-09 09:40 | Outpatient (CLI) | payer BC, MEDICAID, SELFPAY ==
--- NOTE | ~2022-01-09 | MM_ITS ---
EXAMINATION: MM screening [facility] BI w donna HISTORY: Screening mammogram TECHNIQUE: Craniocaudal and mediolateral oblique 3-D tomosynthesis images were obtained and synthetic 2-D images were generated. CAD analysis was submitted and interpreted. COMPARISON: 08/23/2020, 03/10/2019, 03/05/2018 BREAST PARENCHYMAL COMPOSITION: There are scattered areas of fibroglandular density. FINDINGS: Scattered benign-appearing calcifications are present. No suspicious mass, calcification, o r architectural distortion are identified in either breast to suggest malignancy. There has been no s uspicious interval change. IMPRESSION: 1. No mammographic evidence of malignancy. 2. Recommend routine screening mammography in one year. BI-RADS Category 2: Benign finding(s). Reviewed, dictated and finalized at location A.
== END 2022-01-09 09:41 | disposition home or self-care (01) ==
LOC: ANHIMG 09:41
PROVIDERS: PCP Physician Assistant; Visit Provider Obstetrics & Gynecology
DX: Z12.31 Encounter for screening mammogram for malignant neoplasm of breast (principal)
CPT/HCPCS: 77063; 77067

== ENCOUNTER 2022-01-17 11:39 | Outpatient (CLI) | payer BC, MEDICAID, SELFPAY ==
--- NOTE | ~2022-01-17 | US_ITS ---
EXAMINATION: US soft tissue LE DATE: 01/17/2022 13:10 INDICATION: Evaluation of popliteal cyst at the left knee TECHNIQUE: Multiple grayscale and Doppler ultrasound images of the popliteal fossa of the left knee w ere obtained. COMPARISON: None FINDINGS/IMPRESSION: No Yuan's cyst or other abnormal masses or fluid collections identified at the left popliteal fossa. Reviewed, dictated and finalized at location B.
== END 2022-01-17 11:40 | disposition home or self-care (01) ==
LOC: ANHIMG 11:41
PROVIDERS: PCP Physician Assistant; Visit Provider Nurse Practitioner Family
DX: M71.22 Synovial cyst of popliteal space [Baker], left knee (principal)
CPT/HCPCS: 76882

== ENCOUNTER 2022-01-23 10:46 | Outpatient (CLI) | payer BC, MEDICAID, SELFPAY ==
[2022-01-23 11:40] LABS: Albumin Level 4.5 g/dL (3.5-5.1); Anion Gap 15 mmol/L (8-16); Blood Urea Nitrogen 5 mg/dL (7-17); Calcium 9.1 mg/dL (8.4-10.2); Carbon Dioxide 23 mmol/L (22-30); Chloride 106 mmol/L (98-107); Estimated Glomerular Filt Rate > 60; Glucose 91 mg/dL (65-110); Phosphorus 3.4 mg/dL (2.5-4.5); Sodium 144 mmol/L (137-145)
[2022-01-23 11:54] LABS: Parathyroid Intact 103.4 pg/mL (7.5-53.5)
[2022-01-23 12:07] LABS: Vitamin D 25 Hydroxy 51.3 ng/mL
== END 2022-01-23 10:47 | disposition home or self-care (01) ==
LOC: ANHLAB 10:48
PROVIDERS: PCP Physician Assistant; Visit Provider Internal Medicine Endocrinology, Diabetes & Metabolism
DX: R79.89 Other specified abnormal findings of blood chemistry (principal); R42 Dizziness and giddiness; M85.80 Other specified disorders of bone density and structure, unspecified site; E55.9 Vitamin D deficiency, unspecified
CPT/HCPCS: 36415; 80069; 82306; 83970

== ENCOUNTER 2022-01-26 16:30 | Emergency (ER) | payer BC, MEDICAID, SELFPAY ==
--- NOTE | ~2022-01-26 | XR_ITS ---
EXAMINATION: XR foot LT min 3V DATE: 01/26/2022 16:53 INDICATION: Left foot pain and swelling TECHNIQUE: Dorsoplantar, lateral, and 2 oblique views of the left foot were obtained. COMPARISON: None. FINDINGS: Bone alignment is normal. There is no fracture. There is moderate osteoarthritis of multipl e interphalangeal joints. Soft tissue clips are seen near the medial malleolus. There is mild dorsal soft tissue swelling of the foot. IMPRESSION: 1. Soft tissue swelling without acute osseous abnormality. Reviewed, dictated and finalized at location B. GATIONIST DESIGNER
--- NOTE | 2022-01-26 16:34 | ED.EXTPRO ---
HPI - Extremity Problem General Chief complaint: Extremity Problem,Nontraumatic Stated complaint: L FOOT PAIN Time Seen by Provider: 01/26/22 16:38 Source: patient and RN notes reviewed Mode of arrival: ambulatory Limitations: no limitations History of Present Illness HPI Narrative: 51-year-old female presents with concern for left foot pain without injury. She reports she has been using a cane because her left knee has been bothering her, she has appoint with Orthopedics for her knee. She denies any direct injury or trauma, reports bruising, pain with weight-bearing this started in the last 1-2 days. She reports it is tender to touch, she has been walking on her heel because she can not bear weight on the foot. MD Complaint: extremity pain Related Data Home Medications Medication Instructions Recorded Confirmed clonazepam 0.5 mg tablet 0.5 mg PO Q6H 01/17/19 01/26/22 lamotrigine 200 mg tablet 200 mg PO BID 01/17/19 01/26/22 lifitegrast 5 % eye drops in a 1 drop ophthalmic (eye) Q12H 01/17/19 01/26/22 dropperette (Xiidra) melatonin 10 mg capsule 10 mg PO DAILY 01/17/19 01/26/22 tamsulosin 0.4 mg capsule 0.4 mg PO DAILY 01/17/19 01/26/22 trazodone 100 mg tablet 100 mg PO DAILY 01/17/19 01/26/22 trimethoprim 100 mg tablet 100 mg PO DAILY 01/17/19 01/26/22 venlafaxine 75 mg tablet,extended 75 mg PO DAILY 01/17/19 01/26/22 release 24 hr carboxymethyl 0.5 %-glycerin 1 1 drp EACH EYE QHS 06/07/20 01/26/22 %-polysorb 80 0.5 %-PF eye dropperette (Refresh Optive Luis-3 (PF)) prednisolone acetate 1 % eye 1 drp EACH EYE Q12H 06/07/20 01/26/22 drops,suspension diclofenac sodium 1 % topical gel 2 g topical .PRN 06/06/21 01/26/22 esomeprazole magnesium 40 mg 40 mg PO BID 06/06/21 01/26/22 capsule,delayed release (Nexium) cariprazine 1.5 mg capsule 3 mg PO DAILY 07/17/21 01/26/22 (Vraylar) docusate sodium 100 mg capsule 100 mg PO DAILY 09/12/21 01/26/22 (Colace) polyethylene glycol 3350 17 17 g PO DAILY 09/12/21 01/26/22 gram/dose oral powder (Miralax) acyclovir 800 mg tablet 400 mg PO BID shingles 12/01/21 01/26/22 estradiol 0.025 mg/24 hr 1 patch transdermal 2XW 12/01/21 01/26/22 semiweekly transdermal patch rimegepant 75 mg disintegrating 75 mg PO ONCE PRN Headache 12/01/21 01/26/22 tablet (Nurtec ODT) calcitriol 0.25 mcg capsule 0.25 mcg PO 3XW 12/05/21 01/26/22 galcanezumab-gnlm 120 mg/mL 120 mg subcut MONTHLY 12/05/21 01/26/22 subcutaneous syringe (Emgality) Allergies Allergy/AdvReac Type Severity Reaction Status Date / Time aspirin Allergy Rash Verified 01/26/22 16:35 azelastine Allergy Itching Verified 01/26/22 16:35 ceftriaxone Allergy Rash Verified 01/26/22 16:35 fluconazole Allergy Rash Verified 01/26/22 16:35 Iodinated Contrast Media Allergy Hives Verified 01/26/22 16:35 iodine Allergy Hives Verified 01/26/22 16:35 ioversol Allergy Hives Verified 01/26/22 16:35 meperidine Allergy Rash Verified 01/26/22 16:35 nitrofurantoin Allergy Rash Verified 01/26/22 16:35 silicone Allergy Rash Verified 01/26/22 16:35 Review of Systems Review of Systems: CONSTITUTIONAL: Denies malaise, chills, sweats, or fever. SKIN: Denies rash or itching, open skin, laceration, abrasion, redness, warmth, swelling. MUSCULOSKELETAL: Reports left foot pain NEUROLOGIC: Denies numbness, weakness All systems reviewed & are unremarkable except as noted in HPI and below PMFSH Past Medical History Medical History (Updated 01/26/22 @ 17:08 by Lorraine Vu NP) Abnormal uterine bleeding Adrenal insufficiency CAIT positive Ankle fracture Lt. Anorexia with bulimia Anxiety Arthritis Asthma B12 deficiency Back pain Bilateral kidney stones Bipolar 1 disorder Blind in both eyes Bowel obstruction Chondromalacia of knee Chronic left shoulder pain Chronic nausea Chronic pancreatitis Chronic UTI Colitis Colon polyp Constipation Degenerative joint disease of right knee Depression Dermatitis Discoid menis
[2022-01-26 16:53] VITALS: BP 133/82; PULSE 83; RESP 16; TEMP 36; O2SAT 97
== END 2022-01-26 17:20 | disposition home or self-care (01) ==
PROVIDERS: Emergency Provider Nurse Practitioner; PCP Physician Assistant
DX: S93.602A Unspecified sprain of left foot, initial encounter (principal); X58.XXXA Exposure to other specified factors, initial encounter; M19.90 Unspecified osteoarthritis, unspecified site; F41.9 Anxiety disorder, unspecified; F32.A Depression, unspecified; K21.9 Gastro-esophageal reflux disease without esophagitis; R01.1 Cardiac murmur, unspecified; E78.5 Hyperlipidemia, unspecified; H54.8 Legal blindness, as defined in USA; M81.0 Age-related osteoporosis without current pathological fracture; E11.9 Type 2 diabetes mellitus without complications; G40.909 Epilepsy, unspecified, not intractable, without status epilepticus; M17.11 Unilateral primary osteoarthritis, right knee; I95.89 Other hypotension; I20.9 Angina pectoris, unspecified
CPT/HCPCS: 73630; 99213; G0463

== ENCOUNTER 2022-02-17 09:58 | Outpatient (CLI) | payer BC, MEDICAID, SELFPAY ==
--- NOTE | ~2022-02-17 | MR_ITS ---
EXAMINATION: MR foot LT wo con DATE: 02/17/2022 11:02 INDICATION: Left foot pain. TECHNIQUE: Magnetic resonance imaging (MRI) of the left foot was performed without intravenous contra st. COMPARISON: Left foot radiographs 01/26/2022 FINDINGS: There is mild hallux valgus. No fracture. There is mild osteoarthritis of first metatarsoph alangeal joint and some of the interphalangeal joints and midfoot joints. There is a skin marker dors al to the bases of the first and second metatarsals. Lisfranc ligament is normal. The flexor and exte nsor tendons are normal. The musculature is normal. IMPRESSION: 1. Mild hallux valgus. 2. Mild polyarticular osteoarthritis. Reviewed, dictated and finalized at location E. TAIN BIKE GUIDE
== END 2022-02-17 09:59 | disposition home or self-care (01) ==
PROVIDERS: PCP Physician Assistant; Visit Provider Nurse Practitioner Family
DX: M20.12 Hallux valgus (acquired), left foot (principal); M15.9 Polyosteoarthritis, unspecified
CPT/HCPCS: 73718

== ENCOUNTER 2022-03-15 16:37 | Emergency (ER) | payer BC, MEDICAID, SELFPAY ==
--- NOTE | ~2022-03-15 | XR_ITS ---
EXAM: XR abdomen/kub 1V DATE: 03/15/2022 17:15 HISTORY: left flank pain, hx kidney stones . COMPARISON: 09/13/2020. FINDINGS: Cholecystectomy clips Clear lung bases. Normal bowel gas pattern. No organomegaly. Multiple calcifications project over the bilateral renal shadows, with increased burden of calcification in t he left kidney. Multiple 2 mm pelvic phleboliths adjacent to the left lateral aspect of the urinary b ladder. Regional bones and soft tissues normal for age. IMPRESSION: Bilateral nephrolithiasis. Increased burden of calcifications in the left kidney. Multipl e presumed small pelvic phleboliths on the left, distal ureteral stones cannot be excluded. Reviewed, dictated and finalized at location K. ERER IMPRESSION: Bilateral nephrolithiasis. Increased burden of calcifications in th e left kidney. Multiple presumed small pelvic phleboliths on the left, distal u reteral stones cannot be excluded.
--- NOTE | 2022-03-15 16:47 | ED.FEMALEGU ---
HPI - Female Genitourinary General Chief complaint: Urogenital-Female Stated complaint: left flank pain; decreased urination Source: patient and RN notes reviewed Mode of arrival: ambulatory Limitations: no limitations History of Present Illness HPI Narrative: 51 y/o female with hx multiple kidney stones and lithotripsies presented for c/o left flank pain with associated nausea and decreased urine output worsening over the last 2 days. Rates pain 7/10. Reports constant pain with intermittent sharp stabbing pains. Endorses episode of vomiting today. States she 'gets checked' when she has vomiting with the pain. She follows with Dr Woodard. Denies abdominal pain, diarrhea, constipation, urinary complaints or fever. History of DM, chronic uti, chronic pancreatitis, anorexia/bulimia, legally blind Related Data Home Medications Medication Instructions Recorded Confirmed clonazepam 0.5 mg tablet 0.5 mg PO Q6H 01/17/19 02/28/22 lamotrigine 200 mg tablet 200 mg PO BID 01/17/19 02/28/22 lifitegrast 5 % eye drops in a 1 drop ophthalmic (eye) Q12H 01/17/19 02/28/22 dropperette (Xiidra) melatonin 10 mg capsule 10 mg PO DAILY 01/17/19 02/28/22 tamsulosin 0.4 mg capsule 0.4 mg PO DAILY 01/17/19 02/28/22 trazodone 100 mg tablet 100 mg PO DAILY 01/17/19 02/28/22 trimethoprim 100 mg tablet 100 mg PO DAILY 01/17/19 02/28/22 venlafaxine 75 mg tablet,extended 75 mg PO DAILY 01/17/19 02/28/22 release 24 hr carboxymethyl 0.5 %-glycerin 1 1 drp EACH EYE QHS 06/07/20 02/28/22 %-polysorb 80 0.5 %-PF eye dropperette (Refresh Optive Luis-3 (PF)) prednisolone acetate 1 % eye 1 drp EACH EYE Q12H 06/07/20 02/28/22 drops,suspension diclofenac sodium 1 % topical gel 2 g topical .PRN 06/06/21 02/28/22 esomeprazole magnesium 40 mg 40 mg PO BID 06/06/21 02/28/22 capsule,delayed release (Nexium) cariprazine 1.5 mg capsule 3 mg PO DAILY 07/17/21 02/28/22 (Vraylar) docusate sodium 100 mg capsule 100 mg PO DAILY 09/12/21 02/28/22 (Colace) polyethylene glycol 3350 17 17 g PO DAILY 09/12/21 02/28/22 gram/dose oral powder (Miralax) acyclovir 800 mg tablet 400 mg PO BID shingles 12/01/21 02/28/22 estradiol 0.025 mg/24 hr 1 patch transdermal 2XW 12/01/21 02/28/22 semiweekly transdermal patch rimegepant 75 mg disintegrating 75 mg PO ONCE PRN Headache 12/01/21 02/28/22 tablet (Nurtec ODT) atogepant 60 mg tablet (Qulipta) 60 mg PO DAILY 02/20/22 02/28/22 cholecalciferol (vitamin D3) 1,250 50,000 unit PO WEEKLY 02/20/22 02/28/22 mcg (50,000 unit) capsule Allergies Allergy/AdvReac Type Severity Reaction Status Date / Time aspirin Allergy Rash Verified 03/15/22 16:57 azelastine Allergy Itching Verified 03/15/22 16:57 ceftriaxone Allergy Rash Verified 03/15/22 16:57 fluconazole Allergy Rash Verified 03/15/22 16:57 Iodinated Contrast Media Allergy Hives Verified 03/15/22 16:57 iodine Allergy Hives Verified 03/15/22 16:57 ioversol Allergy Hives Verified 03/15/22 16:57 meperidine Allergy Rash Verified 03/15/22 16:57 nitrofurantoin Allergy Rash Verified 03/15/22 16:57 silicone Allergy Rash Verified 03/15/22 16:57 Review of Systems Review of Systems: per HPI [facility] Past Medical History Medical History Abnormal uterine bleeding Adrenal insufficiency CAIT positive Ankle fracture Lt. 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
[2022-03-15 16:49] VITALS: BP 150/88; PULSE 97; RESP 16; TEMP 36.6; O2SAT 97
== END 2022-03-15 17:55 | disposition short-term general hospital (02) ==
LOC: EXPGOSH 16:40
PROVIDERS: Emergency Provider Nurse Practitioner Family; PCP Physician Assistant
DX: N23 Unspecified renal colic (principal); E53.8 Deficiency of other specified B group vitamins; E55.9 Vitamin D deficiency, unspecified; F31.9 Bipolar disorder, unspecified; K21.9 Gastro-esophageal reflux disease without esophagitis; E78.5 Hyperlipidemia, unspecified; E11.9 Type 2 diabetes mellitus without complications; Z87.891 Personal history of nicotine dependence
CPT/HCPCS: 74018; 81003; 99213; G0463

== ENCOUNTER 2022-03-15 18:17 | Emergency (ER) | payer BC, MEDICAID, SELFPAY ==
--- NOTE | 2022-03-15 18:40 | PC.NURSE ---
PT HAS DECIDED TO LEAVE AND CALL HER UROLOGIST TOMORROW.AWARE TO RETURN IF ANY CONCERNS
== END 2022-03-15 18:40 | disposition left against medical advice (07) ==
PROVIDERS: PCP Physician Assistant
DX: Z53.21 Procedure and treatment not carried out due to patient leaving prior to being seen by health care provider (principal)
CPT/HCPCS: 99199

== ENCOUNTER 2022-03-16 09:58 | Emergency (ER) | payer BC, MEDICAID, SELFPAY ==
--- NOTE | ~2022-03-16 | CT_ITS ---
EXAMINATION: CT abdomen pelvis wo con DATE: 03/16/2022 11:54 INDICATION: Left flank pain TECHNIQUE: Computed tomography (CT) of the abdomen and pelvis was performed without intravenous contr ast. The dose-length product (DLP) was 655.59 mGy-cm. Automated exposure control and iterative recons truction technique were employed. COMPARISON: 11/17/2021 FINDINGS: Minimal dependent atelectasis is present in the lung bases. The heart size is normal. The g allbladder is surgically absent. Pneumobilia is again noted in the left hepatic lobe. The spleen, garcia creas, and adrenal glands are normal. There are at least five nonobstructing stones of the left kidne y which measure up to 12 mm. There are multiple calyceal stones within the right kidney which measure up to 16 mm in aggregate. No stones are identified in the ureters or bladder. No hydronephrosis or h ydroureter. No pathologically enlarged abdominal or pelvic lymph nodes are identified. There is no fr ee intraperitoneal gas or evidence of bowel obstruction. There is moderate distention of the urinary bladder. Multiple fat-containing umbilical and supraumbilical ventral hernias are again noted. IMPRESSION: 1. Nonobstructing bilateral nephrolithiasis. No stones identified in the ureters or bladder. 2. Moderate distention of the urinary bladder. Reviewed, dictated and finalized at location L. CH LANGUAGE PATHOLOGY ASSISTANT IMPRESSION: 1. Nonobstructing bilateral nephrolithiasis. No stones identified in the ureter s or bladder. 2. Moderate distention of the urinary bladder.
[2022-03-16 10:02] VITALS: BP 126/79; PULSE 108; RESP 16; TEMP 36.6; O2SAT 96
--- NOTE | 2022-03-16 11:30 | ED.ABDPAIN ---
HPI - Abdominal Pain General Chief Complaint: Abdominal Pain <FELIPA Reyna Last Filed: 03/16/22 19:11> Stated Complaint: BACK PAIN,N/V <FELIPA Reyna Last Filed: 03/16/22 19:11> Time Seen by Provider: 03/16/22 10:40 <FELIPA Reyna Last Filed: 03/16/22 19:11> Source: patient, EMS and RN notes reviewed <FELIPA Reyna Last Filed: 03/16/22 19:11> Mode of arrival: EMS <FELIPA Reyna Last Filed: 03/16/22 19:11> Limitations: no limitations <FELIPA Reyna Last Filed: 03/16/22 19:11> History of Present Illness HPI narrative: Patient is a 41-year-old female who presents the ED via EMS with report of left flank pain and N/V. Patient reports she developed a dull pain in her left flank region 3 days ago. The pain has since persisted and progressively worsened. She was seen in urgent care yesterday and told she possibly had ureteral stones via KUB x-ray. She was referred here for further evaluation and left without being seen due to long wait times. Patient reports having worsening pain last night, along with nausea and vomiting. She was unable to keep down food or drink today, which prompted her presentation. The pain does radiate slightly around to her left upper abdomen. She does have history of kidney stones and sees Dr. Woodard. Denies dysuria, hematuria, fever, diarrhea, constipation. Patient was given 8 mg Zofran in route to the ED via EMS. <FELIPA Reyna Last Filed: 03/16/22 19:11> Related Data Home Medications: Home Medications Medication Instructions Recorded Confirmed clonazepam 0.5 mg tablet 0.5 mg PO Q6H 01/17/19 03/15/22 lamotrigine 200 mg tablet 200 mg PO BID 01/17/19 03/15/22 lifitegrast 5 % eye drops in a 1 drop ophthalmic (eye) Q12H 01/17/19 03/15/22 dropperette (Xiidra) melatonin 10 mg capsule 10 mg PO DAILY 01/17/19 03/15/22 tamsulosin 0.4 mg capsule 0.4 mg PO DAILY 01/17/19 03/15/22 trazodone 100 mg tablet 100 mg PO DAILY 01/17/19 03/15/22 trimethoprim 100 mg tablet 100 mg PO DAILY 01/17/19 03/15/22 venlafaxine 75 mg tablet,extended 75 mg PO DAILY 01/17/19 03/15/22 release 24 hr carboxymethyl 0.5 %-glycerin 1 1 drp EACH EYE QHS 06/07/20 03/15/22 %-polysorb 80 0.5 %-PF eye dropperette (Refresh Optive Luis-3 (PF)) prednisolone acetate 1 % eye 1 drp EACH EYE Q12H 06/07/20 03/15/22 drops,suspension diclofenac sodium 1 % topical gel 2 g topical .PRN 06/06/21 03/15/22 esomeprazole magnesium 40 mg 40 mg PO BID 06/06/21 03/15/22 capsule,delayed release (Nexium) cariprazine 1.5 mg capsule 3 mg PO DAILY 07/17/21 03/15/22 (Vraylar) docusate sodium 100 mg capsule 100 mg PO DAILY 09/12/21 03/15/22 (Colace) polyethylene glycol 3350 17 17 g PO DAILY 09/12/21 03/15/22 gram/dose oral powder (Miralax) acyclovir 800 mg tablet 400 mg PO BID shingles 12/01/21 03/15/22 estradiol 0.025 mg/24 hr 1 patch transdermal 2XW 12/01/21 03/15/22 semiweekly transdermal patch rimegepant 75 mg disintegrating 75 mg PO ONCE PRN Headache 12/01/21 03/15/22 tablet (Nurtec ODT) atogepant 60 mg tablet (Qulipta) 60 mg PO DAILY 02/20/22 03/15/22 cholecalciferol (vitamin D3) 1,250 50,000 unit PO WEEKLY 02/20/22 03/15/22 mcg (50,000 unit) capsule <Jesi Thurston PA-C - Last Filed: 03/16/22 19:11> Allergies/Adverse Reactions: Allergies Allergy/AdvReac Type Severity Reaction Status Date / Time aspirin Allergy Rash Verified 03/16/22 11:31 azelastine Allergy Itching Verified 03/16/22 11:31 ceftriaxone Allergy Rash Verified 03/16/22 11:31 fluconazole Allergy Rash Verified 03/16/22 11:31 Iodinated Contrast Media Allergy Hives Verified 03/16/22 11:31 iodine Allergy Hives Verified 03/16/22 11:31 ioversol Allergy Hives Verified 03/16/22 11:31 meperidine Allergy Rash Verified 03/16/22 11:31 nitrofurantoin Allergy Rash Verified 03/16/22 11:31 silicone Allergy
[2022-03-16] MEDS: SODIUM CHLORIDE 0.9% IV 1,000 ML 999 ML IV CONT (11:34)
[2022-03-16] MEDS: MORPHINE SULFATE (*CRX) 4 MG/ML INJ IV PUSH (11:34)
[2022-03-16 11:37] LABS: Basophils Absolute Auto 0.1 K/mm3 (0.0-0.1); Basophils Percent Auto 0.5 % (0.2-1.2); Eosinophils Absolute Auto 0.2 K/mm3 (0-0.3); Eosinophils Percent Auto 2.4 % (0-4.4); Immature Granulocyte Absolute 0.07 K/mm3 (0.00-0.031); Immature Granulocyte Percent A 0.7 % (0-0.5); Lymphocytes Percent Auto 11.6 % (18.3-44.2); Mean Corpuscular Hemoglobin 25.8 pg (26-34); Mean Corpuscular Volume 83.5 fl (80-100); Mean Platelet Volume 8.8 fl (7.4-10.4); Monocytes Absolute Auto 0.8 K/mm3 (0.1-0.6); Monocytes Percent Auto 8.2 % (2.6-8.5); Neutrophils Absolute Auto 7.3 K/mm3 (1.3-6.7); Neutrophils Percent Auto 76.6 % (45.5-73.1); Platelet Count Result 380 k/mm3 (150-375); Red Blood Count 5.03 M/mm3 (4.2-5.4); Red Cell Distribution Width 15.5 % (11.5-14.5); White Blood Count 9.5 K/mm3 (4.5-10.0)
[2022-03-16 11:50] LABS: Alanine Aminotransferase 25 U/L (6-35); Albumin Level 4.4 g/dL (3.5-5.1); Alkaline Phosphatase 121 U/L (38-126); Anion Gap 7 mmol/L (8-16); Aspartate Amino Transferase 28 U/L (14-36); Bilirubin,Total 0.3 mg/dL (0.2-1.3); Blood Urea Nitrogen 5 mg/dL (7-17); Carbon Dioxide 25 mmol/L (22-30); Chloride 108 mmol/L (98-107); Estimated CRCL calculation 125 ml/min; Estimated Glomerular Filt Rate > 60; Glucose 100 mg/dL (65-110); Lipase 99 U/L (23-300); Sodium 140 mmol/L (137-145)
[2022-03-16] MEDS: METOCLOPRAMIDE HCL INJ 10 MG/2 ML VIAL IV PUSH (13:00)
[2022-03-16 13:07] VITALS: BP 126/77; PULSE 103; RESP 19; O2SAT 96
[2022-03-16 14:08] LABS: Add Urine Microscopic? NO; Appearance Urine Clear (Clear); Bilirubin Urine Negative (Negative); Blood Urine Negative (Negative); Color Urine Yellow (Yellow); Glucose Urine UA Negative (Negative); Ketones Urine Negative (Negative); Leukocyte Esterase Ur Negative LEU/UL (Negative); Nitrate Urine Negative (Negative); Protein Urine Negative (Negative); Specific Grav Ur <= 1.005 (1.001-1.035); Urobilinogen Urine 0.2 mg/dL (<2.0); pH Urine 6.5 (5.0-9.0)
[2022-03-16 15:26] VITALS: BP 127/75; PULSE 85; RESP 16; O2SAT 98
== END 2022-03-16 15:28 | disposition home or self-care (01) ==
PROVIDERS: Emergency Provider Emergency Medicine; PCP Physician Assistant
DX: N20.0 Calculus of kidney (principal); E27.40 Unspecified adrenocortical insufficiency; J45.909 Unspecified asthma, uncomplicated; K86.1 Other chronic pancreatitis; E11.43 Type 2 diabetes mellitus with diabetic autonomic (poly)neuropathy; K31.84 Gastroparesis; E78.5 Hyperlipidemia, unspecified; I95.89 Other hypotension; H54.8 Legal blindness, as defined in USA; E53.8 Deficiency of other specified B group vitamins; E55.9 Vitamin D deficiency, unspecified; M81.0 Age-related osteoporosis without current pathological fracture; M17.11 Unilateral primary osteoarthritis, right knee; F41.9 Anxiety disorder, unspecified; F31.9 Bipolar disorder, unspecified; K21.9 Gastro-esophageal reflux disease without esophagitis; Z90.710 Acquired absence of both cervix and uterus; Z90.722 Acquired absence of ovaries, bilateral; Z87.19 Personal history of other diseases of the digestive system; Z86.010 Personal history of colon polyps; Z87.442 Personal history of urinary calculi; Z87.891 Personal history of nicotine dependence
CPT/HCPCS: 36415; 74176; 80053; 81003; 83690; 85025; 96361; 96365; 96375; 99284; J0131; J2270; J2765; J7030

== ENCOUNTER 2022-03-27 09:21 | Outpatient (CLI) | payer BC, MEDICAID, SELFPAY ==
[2022-03-27 10:05] LABS: Partial Thromboplastin Time 27.7 SECONDS (22.3-36.8); Prothrombin Time 12.4 Seconds (11.1-14.7)
== END 2022-03-27 09:22 | disposition home or self-care (01) ==
PROVIDERS: PCP Physician Assistant; Visit Provider Urology
DX: Z01.818 Encounter for other preprocedural examination (principal); N20.0 Calculus of kidney
CPT/HCPCS: 36415; 85610; 85730; 87086

== ENCOUNTER 2022-03-31 00:53 | Day surgery (SDC) | payer BC, MEDICAID, SELFPAY ==
[2022-03-21 11:10] VITALS: BMI 38.3
--- NOTE | 2022-03-21 11:19 | PC.NURSE ---
Report to the Outpatient Waiting Room, entrance under the green pavilion located off [facility], at time 7:00 on date 03/31/22. Planned Procedure Time: 9:00. Time changes happen often and if your time is changed the preop area will call you the afternoon before. - You and your visitor will be asked to self-screen and do not enter if you have any COVID symptoms. - Only one visitor is requested with a max of two and NO children visitors are allowed at this time. - The patient visitor may be requested to leave or wait in car when not with patient due to distancing restrictions. - A mask is REQUIRED within the hospital. Patients may have clear liquids (water, carbonated beverages, clear teas, apple juice) until 3 hours prior to surgery (6:00) with a maximum of 20 ounces. - No food from midnight until time of surgery Take the following medications with a SIP of water the morning of surgery: ACYCLOVIR, INHALERS, EYE DROPS, CLONAZEPAM, FLUDRICORTISONE, LAMOTRIGINE, TRIMETHOPRIM, VENLAFAXINE, VRAYLAR Medications to discontinue per physician: VITAMINS/SUPPLEMENTS Date to take last dose: 03/27/22 Please no make-up, nail vincentian, hairspray, perfume, deodorant, or body powder the day of surgery. No jewelry (including any body piercings) or valuables the day of surgery, leave them at home. Please take a shower or bath the night before, or the morning of, surgery with an antibacterial soap. Wear comfortable, loose fitting clothing. - Jewelry must be removed prior to entering the operating room. Rings and piercings that are not removed may be cut off. - The hospital will not accept responsibility for valuables. - Please leave all valuables, including medications, at home the day of surgery. If you are going home after surgery, a licensed class b truck driver must drive you home. - NO public transportation without another adult if you receive anesthesia. - We recommend that an adult stay with you for 24 hours following discharge. - We also recommend that you do not drive, make important decision, drink alcoholic beverages, or take any drugs that were not prescribed by your health care provider for at least 24 hours after your discharge time. Follow any additional instructions given to you from your surgeon. If you or anyone in your household have experienced Covid symptoms in the past week, please notify your surgeon or the nurse liaison at the phone number below for possible testing. Telephone instructions given to TYRELL NEVAREZ and asked if any additional questions and then verbalized understanding. Patient advised to call surgeon office or pre surgery nurse liaison [phone] if any additional questions.
--- NOTE | 2022-03-27 07:22 | PM.HPGS ---
History of Present Illness History of Present Illness Consent: Risks, benefits, and alternatives have been discussed and questions answered. Patient agrees to proceed with procedure. Chief complaint: Lt Kidney Stone Narrative: Joy Oliveira is a 51 year old female noted to have recurrent urolithiasis on several occasions in the past. She has recently developed flank pain imaging demonstrates nonobstructing calcified renal calculi. After discussion of options she has elected for proceed with left ESWL. She is aware of the risk including, but not limited to, adverse cardiopulmonary risk, perinephric hematoma and need for additional procedures Review of Systems Cardiovascular: Cardiovascular: Denies chest pain, Denies lightheadedness, Denies palpitations and Denies dyspnea Respiratory: Respiratory: Denies dyspnea Gastrointestinal: Gastrointestinal: Denies diarrhea, Denies nausea and Denies vomiting Genitourinary: Genitourinary: Denies hematuria and Denies dysuria Endocrine: Endocrine: Denies palpitations PMFSH Past Medical History Medical History Abnormal uterine bleeding Adrenal insufficiency CAIT positive Ankle fracture Lt. 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 Dizziness Dysphagia Endometriosis s/p total hysterectomy Feeding by G-tube Refeeding via G-tube, removed 2014 Fibroids Gastroparesis Generalized OA GERD (gastroesophageal reflux disease) Heart murmur Herpes zoster High serum parathyroid hormone (PTH) History of angina History of esophageal dilatation History of rectal polyps Hx of corneal abrasion Hx of hiatal hernia Hyperlipidemia Hypotension, chronic IBS (irritable bowel syndrome) Inflammatory arthritis Keratitis Kidney stones Left foot pain Legal blindness Low vitamin D level Medial meniscus tear Nausea Osteoporosis Other fatigue Patellofemoral chondrosis Patellofemoral pain syndrome Popliteal cyst Seizures Last seizure 2017 Stomach ulcer w/GIB Stress fracture Synovial cyst of popliteal space [Yuan], left knee Tendinitis of left rotator cuff Type 2 diabetes mellitus without complications Diet-controlled, previously on metformin Upper abdominal pain Vertigo Vitamin D deficiency Zoster ophthalmicus Surgical History Surgical History H/O left wrist surgery carpal tunnel History of ankle surgery Lt. History of appendectomy History of cholecystectomy History of hysterectomy Total hysterectomy History of lithotripsy History of oophorectomy MICHA. History of tonsillectomy Hx of cardiac cath x2. No cardiac stents Family History Family History Sibling Family history of migraine headaches Mother Family history of cardiovascular disease Family history of hypercholesterolemia Hypertension Father Family history of primary malignant neoplasm of liver Family history of liver disease Family history of alcoholism Other Family history of cerebrovascular accident (CVA) Social History Social History Smoking packs per day: 0.5 Smoking cigarettes per day: 10.0 Years smoked: 4 Smoking pack-years: 2.00 Smoking status: Former smoker Tobacco type: cigarettes Second hand tobacco smoke exposure: No Smoking end date: 03/19/94 Alcohol intake: never Substance use: never Substance use type: does no
[2022-03-31] VITALS (9 sets, daily range): BP systolic 122–140; BP diastolic 66–84; PULSE 75–91; RESP 13–20; TEMP 36.1–36.6; O2SAT 93–98
--- NOTE | ~2022-03-31 | XR_ITS ---
EXAMINATION: XR abdomen/kub 1V DATE: 03/31/2022 06:54 INDICATION: Kidney stone. TECHNIQUE: A supine view of the abdomen on 3 radiographs was obtained. COMPARISON: Abdomen radiograph 03/15/2022, CT abdomen and pelvis 03/16/2022 FINDINGS: There are no dilated loops of bowel. There are greater than 10 stones in right kidney measu ring up to approximately 4 mm. There are multiple stones in left kidney measuring up to approximately 8 mm. There are phleboliths in left pelvis. IMPRESSION: 1. Bilateral kidney stones. Reviewed, dictated and finalized at location A. COATING TECHNICIAN IMPRESSION: 1. Bilateral kidney stones.
--- NOTE | 2022-03-31 06:54 | WPDHPUPDATE1 ---
History and Physical Update Update Date/Time: 03/31/22 06:54 History and Physical has been reviewed, including an updated exam of the patient. There are NO changes in the patient's condition. Risks, benefits, and alternatives have been discussed and questions answered. Patient agrees to proceed with procedure.
--- NOTE | 2022-03-31 07:06 | WPDANESEPPF ---
Anes - Initial Pre Proc Eval Procedure: Operation Date: 03/31/22 09:00 Proposed Procedures p Left Extracorporeal Shock Wave Lithotripsy - Zane Woodard MD Date/Time: 03/31/22 07:06 Surgeon: Zane Woodard MD Pre Op Diagnosis: Lt Kidney Stone Patient Data Age: 51 Gender: F Height: 1.61 m Weight: 99.8 kg Allergies Allergy/AdvReac Type Severity Reaction Status Date / Time aspirin Allergy Rash Verified 03/27/22 14:58 azelastine Allergy Itching Verified 03/27/22 14:58 ceftriaxone Allergy Rash Verified 03/27/22 14:58 fluconazole Allergy Rash Verified 03/27/22 14:58 Iodinated Contrast Media Allergy Hives Verified 03/27/22 14:58 iodine Allergy Hives Verified 03/27/22 14:58 ioversol Allergy Hives Verified 03/27/22 14:58 meperidine Allergy Rash Verified 03/27/22 14:58 nitrofurantoin Allergy Rash Verified 03/27/22 14:58 silicone Allergy Rash Verified 03/27/22 14:58 Home Medications Medication Instructions Recorded Confirmed Type clonazepam 0.5 mg tablet 0.5 mg PO Q6H 01/17/19 03/21/22 History lamotrigine 200 mg tablet 200 mg PO BID 01/17/19 03/21/22 History lifitegrast 5 % eye drops in a 1 drop ophthalmic (eye) Q12H 01/17/19 03/21/22 History dropperette (Xiidra) melatonin 10 mg capsule 10 mg PO DAILY 01/17/19 03/21/22 History tamsulosin 0.4 mg capsule 0.4 mg PO DAILY 01/17/19 03/21/22 History trazodone 100 mg tablet 100 mg PO DAILY 01/17/19 03/21/22 History trimethoprim 100 mg tablet 100 mg PO DAILY 01/17/19 03/21/22 History venlafaxine 75 mg tablet,extended 75 mg PO DAILY 01/17/19 03/21/22 History release 24 hr carboxymethyl 0.5 %-glycerin 1 1 drp EACH EYE QHS 06/07/20 03/21/22 History %-polysorb 80 0.5 %-PF eye dropperette (Refresh Optive Luis-3 (PF)) prednisolone acetate 1 % eye 1 drp EACH EYE Q12H 06/07/20 03/21/22 History drops,suspension albuterol sulfate 2.5 mg/3 mL 2.5 mg (3 mL) inhalation Q4-6H PRN 01/24/21 03/21/22 Rx (0.083 %) solution for nebulization shortness of breath or wheezing #90 mL nystatin-triamcinolone 100,000 See Rx Instructions .Route 03/17/21 03/21/22 Rx unit/g-0.1 % topical cream .COMPLEX #30 grams nlkrim-twlwvbtz-oskksgt 2 cap PO QID PRN chronic 05/23/21 03/21/22 Rx 10,000-32,000-42,000 unit pancreatitis 1 month #240 caps capsule,delayed rel diclofenac sodium 1 % topical gel 2 g topical .PRN 06/06/21 03/21/22 History esomeprazole magnesium 40 mg 40 mg PO BID 06/06/21 03/21/22 History capsule,delayed release (Nexium) plecanatide 3 mg tablet (Trulance) 3 mg PO DAILY #90 tabs 06/09/21 03/21/22 Rx cariprazine 1.5 mg capsule 3 mg PO DAILY 07/17/21 03/21/22 History (Vraylar) docusate sodium 100 mg capsule 100 mg PO DAILY 09/12/21 03/21/22 History (Colace) polyethylene glycol 3350 17 17 g PO DAILY 09/12/21 03/21/22 History gram/dose oral powder (Miralax) metoclopramide HCl 5 mg/5 mL oral See Rx Instructions .Route 11/29/21 03/21/22 Rx solution .COMPLEX #1,200 mL acyclovir 800 mg tablet 800 mg PO BID shingles 12/01/21 03/21/22 History estradiol 0.025 mg/24 hr 1 patch transdermal 2XW 12/01/21 03/21/22 History semiweekly transdermal patch rimegepant 75 mg disintegrating 75 mg PO ONCE PRN Headache 12/01/21 03/21/22 History tablet (Nurtec ODT) sucralfate 1 gram tablet See Rx Instructions .Route 12/05/21 03/21/22 Rx .COMPLEX #120 tabs dicyclomine 20 mg tablet See Rx Instructions .Route 12/22/21 03/21/22 Rx .COMPLEX #60 tabs fluticasone 500 mcg-salmeterol 50 See Rx Instructions .Route 01/23/22 03/21/22 Rx mcg/dose blistr powdr for .COMPLEX #60 ea inhalation (Advair Diskus) promethazine 12.5 mg tablet 12.5 mg PO Q6H PRN nausea and 01/23/22 03/21/22 Rx vomiting #90 tabs fludrocortisone 0.1 mg tablet See Rx Instructions .Route 01/30/22 03/21/22 Rx .COMPLEX #60 tabs tolnaftate 1 % topical powder 1 applic topical BID #45 grams 02/17/22 03/21/22 Rx (Antifungal (tolnaftate)) atogepant 60 mg tablet (Qulipta)
[2022-03-31] MEDS: SCOPOLAMINE 1.5 MG PATCH TRANSDERM (07:22)
--- NOTE | 2022-03-31 07:57 | SUR.PREOP ---
dr mccain aware unable to obtain iv access after 3 attempts,will place iv in or.
[2022-03-31 08:42] LABS: Glucose Point of Care 87 mg/dl (65-105)
[2022-03-31] MEDS: levoFLOXacin 500 MG/D5W 100 ML 500 MG/100 ML BAG 100 MG IVPB (08:56)
--- NOTE | 2022-03-31 09:09 | P.OP_ITS ---
Procedure Note - Detailed Date of Procedure 03/31/22 Pre-op Diagnosis Lt Kidney Stones Post-op Diagnosis Same Procedure Performed Left ESWL Surgeon Zane Woodard MD Anesthesia General Description of Procedure The patient was brought to the operative suite where she was placed in the supine position on the Dornier lithotripsy table. The focal point of the lithotripter was placed at a two stones in/around the left renal pelvis. A total of 2500 shocks were delivered at a power setting of 4. There was a s maller stone in the left upper pole and largeer one in left lowre pole that we did not treat. There appeared to be good fragmentation of the stones we treated. The patient tolerated the procedure well and was taken to the recovery room in good condition. Drains No Packing No Pathology None sent Complications No immediate complications Condition Stable
[2022-03-31] MEDS: LACTATED RINGERS 1,000 ML 30 ML IV CONT (09:39)
[2022-03-31] MEDS: fentaNYL CITRATE INJ (*CRX) 100 MCG/2 ML VIAL 25 MCG IV PUSH ×4 (10:03→11:29)
[2022-03-31] MEDS: ONDANSETRON INJ 4 MG/2 ML VIAL IV PUSH (10:03)
[2022-03-31] MEDS: PROMETHAZINE HCL 12.5 MG TABLET PO (11:29)
== END 2022-03-31 12:30 | disposition home or self-care (01) ==
PROVIDERS: PCP Physician Assistant; Visit Provider Urology
PROC: (CPT 50590; principal; 2022-03-31 09:00)
DX: N20.0 Calculus of kidney (principal); E27.40 Unspecified adrenocortical insufficiency; F31.9 Bipolar disorder, unspecified; J45.909 Unspecified asthma, uncomplicated; K21.9 Gastro-esophageal reflux disease without esophagitis; E78.5 Hyperlipidemia, unspecified; M81.0 Age-related osteoporosis without current pathological fracture; G40.909 Epilepsy, unspecified, not intractable, without status epilepticus; F41.9 Anxiety disorder, unspecified; Z87.891 Personal history of nicotine dependence; Z79.51 Long term (current) use of inhaled steroids; E66.9 Obesity, unspecified; Z68.39 Body mass index [BMI] 39.0-39.9, adult
CPT/HCPCS: 50590; 74018; 82948; A9270; J1956; J2405; J2704; J3010; J7120

== ENCOUNTER 2022-04-07 12:35 | Inpatient (IN) | payer BC, MEDICAID, SELFPAY ==
--- NOTE | ~2022-04-07 | CT_ITS ---
EXAMINATION: CT abdomen pelvis wo con DATE: 04/07/2022 13:42 INDICATION: Right upper quadrant abdominal pain. History of pancreatitis. TECHNIQUE: Computed tomography (CT) of the abdomen and pelvis was performed without intravenous contr ast. Automated exposure control and iterative reconstruction technique were employed. Exam dose: 136 3.36 mGy-cm total exam DLP. COMPARISON: 03/31/2022 KUB 03/16/2022 CT abdomen pelvis FINDINGS: There is discoid atelectasis and/or scarring at the lung bases bilaterally. Mild cardiomegaly. There is a small pericardial effusion. Status post cholecystectomy. No hepatic, splenic, pancreatic, adrenal or renal space occupying mass lesion is detected, other than approximately 1.2 cm exophytic cyst at the anterior upper pole of the left kidney. Status post cholecystectomy, which likely accounts for minimal pneumobilia. No bile duct or pancreati c duct dilatation. No pancreatic calcification. Normal splenic size. There are numerous nonobstructing calculi of both kidneys. No ureteral calculus or hydroureteronephrosis. The urinary bladder is unremarkable. Status post hyste rectomy. Normal caliber of the abdominal aorta. No intraperitoneal or retroperitoneal or pelvic mass lesion or adenopathy or ascites. No bowel obstruction, bowel wall thickening, pneumatosis or intraperitoneal free air. Small fat-containing umbilical hernia. At least several small fat-containing supraumbilical ventral a bdominal wall hernias are noted; the anterior wall of the transverse colon stick system 2 on these, w ithout obstruction.. Included skeletal structures are unremarkable. IMPRESSION: Status post cholecystectomy with minimal associated pneumobilia 1.2 cm exophytic anterior upper pole left renal cyst Bilateral nonobstructive nephrolithiasis Several supraumbilical ventral abdominal wall hernias containing fat, one with the anterior wall of t he transverse colon Reviewed, dictated and finalized at Location [facility]. Reviewed, dictated and finalized at location B. TRICIANS TOP HELPER IMPRESSION: Status post cholecystectomy with minimal associated pneumobilia 1.2 cm exophytic anterior upper pole left renal cyst Bilateral nonobstructive nephrolithiasis Several supraumbilical ventral abdominal wall hernias containing fat, one with the anterior wall of the transverse colon
--- NOTE | ~2022-04-07 | XR_ITS ---
EXAMINATION: XR ribs RT 2V DATE: 04/09/2022 11:00 INDICATION: Right rib pain. TECHNIQUE: 2 views of the right ribs on 3 radiographs were obtained. COMPARISON: Chest 2 views 11/17/2021, CT abdomen and pelvis 04/07/2022 FINDINGS: There is mild elevation of right hemidiaphragm. There is mild atelectasis at right lung bas e. No right-sided pleural effusion or pneumothorax. Surgical clips in the right upper quadrant are mahendra lomax from cholecystectomy. IMPRESSION: 1. No rib fracture. Reviewed, dictated and finalized at location A. E LOADER IMPRESSION: 1. No rib fracture.
[2022-04-07 12:41] VITALS: BP 149/86; PULSE 106; RESP 16; TEMP 36.4; O2SAT 95
--- NOTE | 2022-04-07 12:59 | ED.ABDPAIN ---
HPI - Abdominal Pain General Chief Complaint: Abdominal Pain Stated Complaint: RUQ pain Time Seen by Provider: 04/07/22 12:55 Related Data Home Medications Medication Instructions Recorded Confirmed clonazepam 0.5 mg tablet 0.5 mg PO Q6H 01/17/19 03/31/22 lamotrigine 200 mg tablet 200 mg PO BID 01/17/19 03/31/22 lifitegrast 5 % eye drops in a 1 drop ophthalmic (eye) Q12H 01/17/19 03/31/22 dropperette (Xiidra) melatonin 10 mg capsule 10 mg PO DAILY 01/17/19 03/31/22 tamsulosin 0.4 mg capsule 0.4 mg PO DAILY 01/17/19 03/31/22 trazodone 100 mg tablet 100 mg PO DAILY 01/17/19 03/31/22 trimethoprim 100 mg tablet 100 mg PO DAILY 01/17/19 03/31/22 venlafaxine 75 mg tablet,extended 75 mg PO DAILY 01/17/19 03/31/22 release 24 hr carboxymethyl 0.5 %-glycerin 1 1 drp EACH EYE QHS 06/07/20 03/31/22 %-polysorb 80 0.5 %-PF eye dropperette (Refresh Optive Luis-3 (PF)) prednisolone acetate 1 % eye 1 drp EACH EYE Q12H 06/07/20 03/31/22 drops,suspension diclofenac sodium 1 % topical gel 2 g topical .PRN 06/06/21 03/31/22 esomeprazole magnesium 40 mg 40 mg PO BID 06/06/21 03/31/22 capsule,delayed release (Nexium) cariprazine 1.5 mg capsule 3 mg PO DAILY 07/17/21 03/31/22 (Vraylar) docusate sodium 100 mg capsule 100 mg PO DAILY 09/12/21 03/31/22 (Colace) polyethylene glycol 3350 17 17 g PO DAILY 09/12/21 03/31/22 gram/dose oral powder (Miralax) acyclovir 800 mg tablet 800 mg PO BID shingles 12/01/21 03/31/22 estradiol 0.025 mg/24 hr 1 patch transdermal 2XW 12/01/21 03/31/22 semiweekly transdermal patch rimegepant 75 mg disintegrating 75 mg PO ONCE PRN Headache 12/01/21 03/31/22 tablet (Nurtec ODT) atogepant 60 mg tablet (Qulipta) 60 mg PO DAILY 02/20/22 03/31/22 cholecalciferol (vitamin D3) 1,250 50,000 unit PO WEEKLY 02/20/22 03/31/22 mcg (50,000 unit) capsule lactase 3,000 unit tablet (Lactaid) 3,000 unit PO ONCE PRN Lactose 03/21/22 03/31/22 Intolerance Allergies Allergy/AdvReac Type Severity Reaction Status Date / Time aspirin Allergy Intermediate Rash Verified 04/03/22 13:48 azelastine Allergy Intermediate Itching Verified 04/03/22 13:48 ceftriaxone Allergy Intermediate Rash Verified 04/03/22 13:48 fluconazole Allergy Intermediate Rash Verified 04/03/22 13:48 Iodinated Contrast Media Allergy Intermediate Hives Verified 04/03/22 13:48 iodine Allergy Intermediate Hives Verified 04/03/22 13:48 ioversol Allergy Intermediate Hives Verified 04/03/22 13:48 meperidine Allergy Intermediate Rash Verified 04/03/22 13:48 nitrofurantoin Allergy Intermediate Rash Verified 04/03/22 13:48 silicone Allergy Intermediate Swelling Verified 04/03/22 13:48 PMFSH Past Medical History Medical History Abnormal uterine bleeding Adrenal insufficiency CAIT positive Ankle fracture Lt. 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 Dizziness Dysphagia Endometriosis s/p total hysterectomy Feeding by G-tube Refeeding via G-tube, removed 2014 Fibroids Gastroparesis Generalized OA GERD (gastroesophageal reflux disease) Heart murmur Herpes zoster High serum parathyroid hormone (PTH) History of angina History of esophageal dilatation History of rectal polyps Hx of corneal abrasion Hx of hiatal hernia Hyperlipidemia Hypotension, chronic IBS (irritable bowel syndrome) Inflammatory arthritis Keratitis Kidney stones Left foot pain Left knee DJD Legal blindness Low vitamin D level Medial meniscus tear Nausea Osteoporosis Other fatigue Patellofemoral chondrosis Patellofemo
[2022-04-07] MEDS: SODIUM CHLORIDE 0.9% IV 1,000 ML 999 ML IV CONT (13:34)
[2022-04-07] MEDS: ONDANSETRON INJ 4 MG/2 ML VIAL IV PUSH ×2 (13:35→20:21)
[2022-04-07] MEDS: HYDROmorphone HCL INJ (*CRX) 1 MG/ML SYR 0.5 MG IV PUSH (13:35)
[2022-04-07 13:44] LABS: Basophils Absolute Auto 0.1 K/mm3 (0.0-0.1); Basophils Percent Auto 0.4 % (0.2-1.2); Eosinophils Absolute Auto 0.2 K/mm3 (0-0.3); Eosinophils Percent Auto 1.5 % (0-4.4); Hematocrit 41.7 % (37.0-47.0); Hemoglobin 13.1 g/dL (12.0-15.0); Immature Granulocyte Absolute 0.07 K/mm3 (0.00-0.031); Immature Granulocyte Percent A 0.6 % (0-0.5); Lymphocytes Absolute Auto 1.07 K/mm3 (0.9-3.2); Lymphocytes Percent Auto 9.2 % (18.3-44.2); Mean Corpuscular HGB Conc 31.4 g/dl (32-36); Mean Corpuscular Hemoglobin 25.7 pg (26-34); Mean Corpuscular Volume 81.9 fl (80-100); Monocytes Absolute Auto 0.7 K/mm3 (0.1-0.6); Monocytes Percent Auto 6.4 % (2.6-8.5); Neutrophils Absolute Auto 9.5 K/mm3 (1.3-6.7); Neutrophils Percent Auto 81.9 % (45.5-73.1); Platelet Count Result 387 k/mm3 (150-375); Red Blood Count 5.09 M/mm3 (4.2-5.4); Red Cell Distribution Width 15.6 % (11.5-14.5); White Blood Count 11.6 K/mm3 (4.5-10.0)
[2022-04-07 13:53] LABS: Bacteria Urine Trace /hpf; Mucus Urine Rare /lpf; RBC Urine 0-2 /hpf (0-2); Squamous Epithelial Cell Urine Rare /hpf (Few); WBC Urine 0-3 /hpf
[2022-04-07 13:56] LABS: Appearance Urine Clear (Clear); Bilirubin Urine Negative (Negative); Blood Urine Negative (Negative); Color Urine Yellow (Yellow); Glucose Urine UA Negative (Negative); Ketones Urine Negative (Negative); Leukocyte Esterase Ur Trace LEU/UL (Negative); Nitrate Urine Negative (Negative); Protein Urine Negative (Negative); Specific Grav Ur 1.015 (1.001-1.035); Urobilinogen Urine 0.2 mg/dL (<2.0)
[2022-04-07 13:57] LABS: Alanine Aminotransferase 22 U/L (6-35); Albumin Level 4.1 g/dL (3.5-5.1); Alkaline Phosphatase 121 U/L (38-126); Anion Gap 7 mmol/L (8-16); Aspartate Amino Transferase 22 U/L (14-36); Bilirubin,Total 0.4 mg/dL (0.2-1.3); Blood Urea Nitrogen 9 mg/dL (7-17); Carbon Dioxide 23 mmol/L (22-30); Chloride 112 mmol/L (98-107); Estimated CRCL calculation 125 ml/min; Estimated Glomerular Filt Rate > 60; Glucose 109 mg/dL (65-110); Lipase 82 U/L (23-300); Sodium 142 mmol/L (137-145)
[2022-04-07 14:08] LABS: Add Urine Microscopic? YES
[2022-04-07 14:52] LABS: Influenza A QL RT-PCR Negative (Negative); Influenza B QL RT-PCR Negative (Negative); SARS-CoV-2 RNA PCR Negative
--- NOTE | 2022-04-07 15:59 | PM.CNGS ---
Assessment and Plan Assessment and plan (1) Right upper quadrant pain: Code(s): R10.11 - Right upper quadrant pain Status: Acute Assessment and Plan: Etiology unclear. Patient had same pain in November when she was in the emergency room. This was also associated with nausea and vomiting. She has had previous cholecystectomy. Her liver enzymes are normal. Discussed with the ER physician. GI is to be consulted. Her tenderness is not in the area of the incisional hernias. I do not feel that the hernias are the cause of her present complaints of right upper quadrant pain nausea and vomiting. (2) Incisional hernia of anterior abdominal wall without obstruction or gangrene: Code(s): K43.2 - Incisional hernia without obstruction or gangrene Status: Chronic Assessment and Plan: Present and unchanged on multiple CT scans done in the last 12 months. No evidence of incarceration or bowel obstruction. Hernia repair would be exceptionally difficult in this patient. No plans for surgery at this time. (3) Intractable nausea and vomiting: Code(s): R11.2 - Nausea with vomiting, unspecified Status: Acute Assessment and Plan: Consider upper GI small-bowel follow-through. Gastroenterology to see. As before, very similar symptoms to her admission in early November. History of Present Illness Consult details Consult date: 04/07/22 Reason for consult: abdominal pain Requesting physician: Kamryn Quiroga MD Narrative: Patient is a 51-year-old woman with history of mental illness and legally blind. She came into the emergency room with right upper quadrant abdominal pain. She tells me she had a lithotripsy for a left-sided kidney stone a week ago. The right-sided abdominal pain started on Sunday, 3 days ago. She then started vomiting 2 days ago. She reports she cannot keep anything down. The pain got worse today and she could not take it anymore. She came to the emergency room due to the pain and vomiting and inability to eat. Patient has an extensive medical history. She is known to me from surgical procedures done 10 years ago. 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 She had had a Dobbhoff in place for several weeks being fed through that. In July of 2011, I placed a jejunostomy tube. She had had prior surgery and did have extensive adhesions at that time. She developed a small-bowel obstruction at the site of the J-tube. She went back to surgery and had the initial J-tube removed and the enterostomy closed. A 2nd, smaller jejunostomy tube was placed as well as a gastrostomy tube. Following this surgery she developed a wound infection. That went on to heal. I next saw her 8 months later with no jejunostomy tube in place but only a gastrostomy tube. This had clogged and I had to replace it intraoperatively. Since that time, I had not really seen the patient at as a physician. Apparently, she was able to have her G-tube removed in 2014 and has been able to eat ever sense. In fact, she now has morbid obesity. The patient has a medical history that includes 65 different entries. She is taking 35 different medications. She confirms that she is legally blind. She does have a roommate and roommate tells me that she provides all of [facility] medications. The emergency room physician asked me to see the patient because CT scan done today shows several small midline incisional hernias. Patient is extremely tender in the upper abdomen and concern existed regarding hernias as a source of her pain. I did review her CT scan independently and actually looked at old CT scans as well. She initially developed an incisional hernia back in 2019. This was only 1 hernia and was closer to the umbilicus. However, since April of 2020, she has had 6 CT scans of the abdomen and pelvis. All of these have shown multiple small incisional hernias and really did not appear to be changed s
[2022-04-07] MEDS: METOCLOPRAMIDE HCL INJ 10 MG/2 ML VIAL IV PUSH (16:00)
[2022-04-07] MEDS: BELLADONNA ALK/PHENOB ELIX 10 ML, MAG HYDROX/ALUMINUM HYD/SIMETH 30 ML, LIDOCAINE HCL 2... PO (16:00)
[2022-04-07] MEDS: diphenhydrAMINE HCl INJ 50 MG/ML VIAL IV PUSH (16:00)
[2022-04-07] MEDS: LORazepam INJ (*CRX) 2 MG/ML VIAL 1 MG IV PUSH (16:00)
[2022-04-07] MEDS: PANTOPRAZOLE SODIUM IV 40 MG VIAL IV PUSH (16:27)
[2022-04-07] MEDS: DICYCLOMINE HCL INJ 20 MG/2 ML VIAL IM ×2 (16:27→22:32)
--- NOTE | 2022-04-07 16:30 | PM.IMHP ---
H&P: HPI History of Present Illness Date/Time: 04/07/22 16:30 Chief Complaint: Abdominal pain. Narrative: This is a 51-year-old female with diet-controlled diabetes, gastroparesis, GERD, gastric ulcer, chronic pancreatitis, kidney stones with recent lithotripsy, several ventral hernias, and other comorbidities who presented to the emergency department for evaluation of abdominal pain. Last Sunday she had left-sided lithotripsy per Dr. Woodard and she has been doing well with regards to that. On Sunday however she developed a dull pain in the right upper quadrant radiating around the right flank and to the right midback. It has gotten progressively worse and she now describes a constant, stabbing pain in the same area. The pain is worse with movement, palpation, and deep inspiration. She has tried taking tramadol and hydrocodone that she had at home from her recent lithotripsy though it is not helped much. Additionally she has had increased abdominal bloating, belching, and she has noticed some burning discomfort in the low sternal region. She denies fever, chills, sweats, chest pain, pleuritic pain, shortness a breath, vomiting, melena, and hematochezia. Review of Systems Review of Systems: Twelve systems were reviewed and are negative except for as per HPI. [facility] Past Medical History Medical History Abnormal uterine bleeding Adrenal insufficiency CAIT positive Ankle fracture Lt. 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 Dizziness Dysphagia Endometriosis s/p total hysterectomy Feeding by G-tube Refeeding via G-tube, removed 2014 Fibroids Gastroparesis Generalized OA GERD (gastroesophageal reflux disease) Heart murmur Herpes zoster High serum parathyroid hormone (PTH) History of angina History of esophageal dilatation History of rectal polyps Hx of corneal abrasion Hx of hiatal hernia Hyperlipidemia Hypotension, chronic IBS (irritable bowel syndrome) Inflammatory arthritis Keratitis Kidney stones Left foot pain Left knee DJD Legal blindness Low vitamin D level Medial meniscus tear Nausea Osteoporosis Other fatigue Patellofemoral chondrosis Patellofemoral pain syndrome Popliteal cyst Right knee DJD Seizures Last seizure 2017 Stomach ulcer w/GIB Stress fracture Synovial cyst of popliteal space [Yuan], left knee Tendinitis of left rotator cuff Type 2 diabetes mellitus without complications Diet-controlled, previously on metformin Upper abdominal pain Vertigo Vitamin D deficiency Zoster ophthalmicus Surgical History Surgical History H/O left wrist surgery carpal tunnel History of ankle surgery Lt. History of appendectomy History of cholecystectomy History of hysterectomy Total hysterectomy History of lithotripsy History of oophorectomy MICHA. History of tonsillectomy Hx of cardiac cath x2. No cardiac stents Family History Family History Sibling Family history of migraine headaches Mother Family history of cardiovascular disease Family history of hypercholesterolemia Hypertension Father Family history of primary malignant neoplasm of liver Family history of liver disease Family history of alcoholism Other Family history of cerebrovascular accident (CVA) Social History Social History Smoking packs per day: 0.5 Smoking cigarettes
[2022-04-07 16:55] VITALS: BP 124/82; PULSE 90; RESP 12; O2SAT 98
--- NOTE | 2022-04-07 17:20 | ADMGEN ---
This patient, Joy Oliveira, was admitted to Medical Room 346-01. Patient/family oriented to hospital policies and general routines including ID bracelet, bed and alarms, visiting hours, pain management, procedures, bathroom and other care routines, personal items, smoking policy, room service/diet, and visiting hours. Information on how to activate the Rapid Response Team has been discussed. Patient/Family are encouraged to report perceived risks to care and to ask questions if they do not understand what they are told or what they should do.
[2022-04-07 17:44] VITALS: BMI 38.9
[2022-04-07] MEDS: SODIUM CHLORIDE 0.9% IV 1,000 ML 150 ML IV CONT (17:52)
[2022-04-07 22:00] VITALS: BP 139/75; PULSE 88; RESP 18; TEMP 36.4; O2SAT 96
[2022-04-08] VITALS (9 sets, daily range): BP systolic 131–154; BP diastolic 62–89; PULSE 70–92; RESP 14–32; TEMP 36.4–36.7; O2SAT 91–95
[2022-04-08] MEDS: SODIUM CHLORIDE 0.9% IV 1,000 ML 150 ML IV CONT ×4 (01:01→18:05)
[2022-04-08] MEDS: clonazePAM (*CRX) 0.5 MG TABLET PO ×4 (02:17→17:50)
[2022-04-08] MEDS: ONDANSETRON INJ 4 MG/2 ML VIAL IV PUSH ×5 (02:19→23:16)
[2022-04-08] MEDS: DICYCLOMINE HCL INJ 20 MG/2 ML VIAL IM (05:58)
[2022-04-08 06:02] LABS: Hematocrit 37.5 % (37.0-47.0); Hemoglobin 11.4 g/dL (12.0-15.0); Mean Corpuscular HGB Conc 30.4 g/dl (32-36); Mean Corpuscular Hemoglobin 25.1 pg (26-34); Mean Corpuscular Volume 82.4 fl (80-100); Mean Platelet Volume 8.9 fl (7.4-10.4); Platelet Count Result 320 k/mm3 (150-375); Red Blood Count 4.55 M/mm3 (4.2-5.4); Red Cell Distribution Width 15.6 % (11.5-14.5); White Blood Count 7.9 K/mm3 (4.5-10.0)
[2022-04-08 06:08] LABS: Alanine Aminotransferase 17 U/L (6-35); Albumin Level 3.7 g/dL (3.5-5.1); Alkaline Phosphatase 94 U/L (38-126); Anion Gap 5 mmol/L (8-16); Aspartate Amino Transferase 20 U/L (14-36); Bilirubin,Total 0.5 mg/dL (0.2-1.3); Blood Urea Nitrogen 8 mg/dL (7-17); Calcium 8.3 mg/dL (8.4-10.2); Carbon Dioxide 21 mmol/L (22-30); Chloride 111 mmol/L (98-107); Estimated CRCL calculation 125 ml/min; Estimated Glomerular Filt Rate > 60; Glucose 95 mg/dL (65-110); Potassium 3.8 mmol/L (3.4-5.0); Sodium 137 mmol/L (137-145)
--- NOTE | 2022-04-08 07:36 | WPDGICN ---
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 Not felt to be etiology of current pain further evaluation. (2) Obesity (BMI 30-39.9): Code(s): E66.9 - Obesity, unspecified Status: Acute (3) Upper abdominal pain: Code(s): R10.10 - Upper abdominal pain, unspecified Status: Acute Assessment and Plan: Upper abdominal pain she has had intermittently appears to be present over the last 3-4 days. Plan for EGD to assess more thoroughly. She does give a prior history of peptic ulcer disease. Continue patient on PPI therapy for now bland diet further recommendations may be given after endoscopy. (4) Bipolar 1 disorder: Code(s): F31.9 - Bipolar disorder, unspecified Status: Chronic GI Consult Note Consult date/time: 04/08/22 07:36 Reason for consult: Upper abdominal pain. HPI: Joy Oliveira is a 51 year old female I am asked to see at the request of the emergency room. Patient reports 3-4 day history of upper abdominal discomfort. She states that is burning in nature. It remains tender. It worsens when she eats. Because of the intense pain she presented to the emergency room. This patient has had episodes of pain in the past. She states years ago was told she had ulcers. Seen by Dr. Lopes in 2020 colonoscopy an EGD were normal at that time. Patient has a prior history of cholecystectomy. She does have a ventral hernia felt be incisional present. Patient's past medical history is significant for being legally blind she has an underlying mental illness. Approximately a week ago had lithotripsy for a kidney stone. Patient has a prior history that is rather extensive of small-bowel obsessions a small bowel obstruction and briefly had a jejunostomy feeding tube. This is subsequently been able to be removed. Review of Systems Review of Systems: Review of systems noncontributory. [facility] Past Medical History Medical History Abnormal uterine bleeding Adrenal insufficiency CAIT positive Ankle fracture Lt. 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 Dizziness Dysphagia Endometriosis s/p total hysterectomy Feeding by G-tube Refeeding via G-tube, removed 2014 Fibroids Gastroparesis Generalized OA GERD (gastroesophageal reflux disease) Heart murmur Herpes zoster High serum parathyroid hormone (PTH) History of angina History of esophageal dilatation History of rectal polyps Hx of corneal abrasion Hx of hiatal hernia Hyperlipidemia Hypotension, chronic IBS (irritable bowel syndrome) Inflammatory arthritis Keratitis Kidney stones Left foot pain Left knee DJD Legal blindness Low vitamin D level Medial meniscus tear Nausea Osteoporosis Other fatigue Patellofemoral chondrosis Patellofemoral pain syndrome Popliteal cyst Right knee DJD Seizures Last seizure 2017 Stomach ulcer w/GIB Stress fracture Synovial cyst of popliteal space [Yuan], left knee Tendinitis of left rotator cuff Type 2 diabetes mellitus without complications Diet-controlled, previously on metformin Upper abdominal pain Vertigo Vitamin D deficiency Zoster ophthalmicus Surgical History Surgical History H/O left wrist surgery carpal
[2022-04-08] MEDS: LACTATED RINGERS 1,000 ML 150 ML IV CONT (08:05)
--- NOTE | 2022-04-08 08:05 | WPDANESEPPF ---
Anes - Initial Pre Proc Eval Procedure: Operation Date: 04/08/22 08:30 Proposed Procedures p Esophagogastroduodenoscopy - Rolando Lawson MD Date/Time: 04/08/22 08:05 Surgeon: Je Corbin MD Pre Op Diagnosis: Intractable Abdominal Pain Patient Data Age: 51 Gender: F Height: 1.6 m Weight: 109.3 kg Last Vital Signs Temp 36.7 C 04/08/22 06:00 Pulse 77 04/08/22 06:00 Resp 20 04/08/22 06:00 BP 154/62 H 04/08/22 06:00 Pulse Ox 94 04/08/22 06:00 O2 Del Method Room Air 04/07/22 20:32 Allergies Allergy/AdvReac Type Severity Reaction Status Date / Time aspirin Allergy Intermediate Rash Verified 04/03/22 13:48 azelastine Allergy Intermediate Itching Verified 04/03/22 13:48 ceftriaxone Allergy Intermediate Rash Verified 04/03/22 13:48 fluconazole Allergy Intermediate Rash Verified 04/03/22 13:48 Iodinated Contrast Media Allergy Intermediate Hives Verified 04/03/22 13:48 iodine Allergy Intermediate Hives Verified 04/03/22 13:48 ioversol Allergy Intermediate Hives Verified 04/03/22 13:48 meperidine Allergy Intermediate Rash Verified 04/03/22 13:48 nitrofurantoin Allergy Intermediate Rash Verified 04/03/22 13:48 silicone Allergy Intermediate Swelling Verified 04/03/22 13:48 Home Medications Medication Instructions Recorded Confirmed Type clonazepam 0.5 mg tablet 0.5 mg PO Q6H 01/17/19 04/07/22 History lamotrigine 200 mg tablet 200 mg PO BID 01/17/19 04/07/22 History lifitegrast 5 % eye drops in a 1 drop ophthalmic (eye) BID 01/17/19 04/07/22 History dropperette (Xiidra) melatonin 10 mg capsule 10 mg PO HS 01/17/19 04/07/22 History tamsulosin 0.4 mg capsule 0.4 mg PO DAILY 01/17/19 04/07/22 History trazodone 100 mg tablet 100 mg PO QHS 01/17/19 04/07/22 History trimethoprim 100 mg tablet 100 mg PO DAILY 01/17/19 04/07/22 History venlafaxine 75 mg tablet,extended 75 mg PO DAILY 01/17/19 04/07/22 History release 24 hr carboxymethyl 0.5 %-glycerin 1 1 drp EACH EYE BID 06/07/20 04/07/22 History %-polysorb 80 0.5 %-PF eye dropperette (Refresh Optive Luis-3 (PF)) prednisolone acetate 1 % eye 1 drp EACH EYE Q12H 06/07/20 04/07/22 History drops,suspension albuterol sulfate 2.5 mg/3 mL 2.5 mg (3 mL) inhalation Q4-6H PRN 01/24/21 04/07/22 Rx (0.083 %) solution for nebulization shortness of breath or wheezing #90 mL [id number]-[id number] 2 cap PO QID PRN chronic 05/23/21 04/07/22 Rx 10,000-32,000-42,000 unit pancreatitis 1 month #240 caps capsule,delayed rel diclofenac sodium 1 % topical gel 2 g topical Q6-8H PRN Pain 06/06/21 04/08/22 History esomeprazole magnesium 40 mg 40 mg PO BID 06/06/21 04/07/22 History capsule,delayed release (Nexium) cariprazine 1.5 mg capsule 3 mg PO DAILY 07/17/21 04/07/22 History (Vraylar) docusate sodium 100 mg capsule 100 mg PO QAM 09/12/21 04/07/22 History (Colace) polyethylene glycol 3350 17 17 g PO QAM 09/12/21 04/07/22 History gram/dose oral powder (Miralax) acyclovir 800 mg tablet 800 mg PO BID shingles 12/01/21 04/07/22 History estradiol 0.025 mg/24 hr 1 patch transdermal 2XW 12/01/21 04/07/22 History semiweekly transdermal patch rimegepant 75 mg disintegrating 75 mg PO ONCE PRN Headache 12/01/21 04/07/22 History tablet (Nurtec ODT) dicyclomine 20 mg tablet See Rx Instructions .Route 12/22/21 04/07/22 Rx .COMPLEX #60 tabs fluticasone 500 mcg-salmeterol 50 See Rx Instructions .Route 01/23/22 04/07/22 Rx mcg/dose blistr powdr for .COMPLEX #60 ea inhalation (Advair Diskus) promethazine 12.5 mg tablet 12.5 mg PO Q6H PRN nausea and 01/23/22 04/07/22 Rx vomiting #90 tabs tolnaftate 1 % topical powder 1 applic topical BID #45 grams 02/17/22 04/07/22 Rx (Antifungal (tolnaftate)) atogepant 60 mg tablet (Qulipta) 60 mg PO DAILY 02/20/22 04/07/22 History cholecalciferol (vitamin D3) 1,250 50,000 unit PO WEEKLY 02/20/22 04/07/22 History mcg (50,000 unit) capsule ondansetron HCl 8 mg tablet See Rx In
--- NOTE | 2022-04-08 10:00 | PM.PNGS ---
Progress Note: A&P Assessment and Plan (1) Right sided abdominal pain: Code(s): R10.9 - Unspecified abdominal pain Status: Acute Assessment and Plan: Patient down having EGD when I came by to see her. Nursing reports she continues to have right upper quadrant pain. Subjective Subjective Date/Time Seen: 04/08/22 10:00 Objective Data Vital Signs Vital Signs: Vital Signs - 24 hr 04/07/22 12:41 04/07/22 16:55 04/07/22 20:32 Temperature 36.4 C Pulse Rate 106 H 90 Respiratory Rate 16 12 Blood Pressure 149/86 H 124/82 Pulse Oximetry 95 98 Oxygen Delivery Room Air Oxygen Flow Rate 04/07/22 22:00 04/08/22 06:00 04/08/22 08:17 Temperature 36.4 C L 36.7 C Pulse Rate 88 77 87 Respiratory Rate 18 20 32 H Blood Pressure 139/75 154/62 H 134/88 Pulse Oximetry 96 94 91 Oxygen Delivery Nasal Cannula Oxygen Flow Rate 2 04/08/22 08:27 04/08/22 08:35 Temperature Pulse Rate 92 89 Respiratory Rate 17 22 H Blood Pressure 140/86 146/89 H Pulse Oximetry 95 94 Oxygen Delivery Room Air Room Air Oxygen Flow Rate Intake/Output Intake/Output: Intake & Output 04/05/22 04/06/22 04/07/22 04/08/22 23:59 23:59 23:59 23:59 Intake Total 1000 1500 Balance 1000 1500 Meds/Results Medications: Active Medications Generic Name Dose Route Start Last Admin Trade Name Freq PRN Reason Stop Dose Admin Acetaminophen 650 mg 04/07/22 23:59 Acetaminophen 325 Mg Tablet PO Q6H PRN Mild Pain (1-3) or Fever Acyclovir 800 mg 04/08/22 09:00 Acyclovir 400 Mg Tablet BY MOUTH BID RASHID Albuterol 2.5 mg 04/08/22 00:00 Albuterol Sulfate Neb 2.5 Mg/3 Ml Inh INHALATION Q4-6H PRN shortness of breath or wheezing Albuterol 1 puff 04/08/22 00:00 Albuterol Sulfate (*Sp) Aerosol 1 Puff INHALATION Q4-6H PRN Shortness Of Breath Calcitriol 0.25 mcg 04/10/22 09:00 Calcitriol 0.25 Mcg Capsule BY MOUTH MoWeFr@0900 RASHID Clonazepam 0.5 mg 04/08/22 01:25 04/08/22 05:55 Clonazepam (*Crx) 0.5 Mg Tablet PO 0.5 mg Q6HR RASHID Administration Diclofenac Sodium 1 applic 04/08/22 07:05 Diclofenac Sodium 1% 100 Gm Gel (*Bkc) TOPICAL QID PRN BILATERAL KNEE PAIN Dicyclomine HCl 20 mg 04/07/22 15:50 04/08/22 05:58 Dicyclomine Hcl Inj 20 Mg/2 Ml Vial IM 20 mg Q6H PRN Administration Abdominal Cramping Dicyclomine HCl 20 mg 04/08/22 00:00 Dicyclomine Hcl 10 Mg Capsule BY MOUTH TID PRN Abdominal discomfort Docusate Sodium 100 mg 04/08/22 09:00 Docusate Sodium 100 Mg Capsule PO QAM [facility] Ezetimibe 10 mg 04/08/22 09:00 Ezetimibe 10 Mg Tablet PO DAILY [facility] Ergocalciferol 50,000 units 04/10/22 09:00 Ergocalciferol 50,000 Units Capsule PO Mo@0900 [facility] Fludrocortisone Acetate 0.1 mg 04/08/22 09:00 Fludrocortisone Acetate 0.1 Mg Tablet PO BID RASHID Acetaminophen 1,000 mg in 100 mls @ 400 mls/hr 04/07/22 15:50 04/07/22 17:59 Ofirmev 1,000 Mg Ivpb IVPB 04/08/22 15:49 400 mls/hr Q6H PRN Administration Mild Pain (1-3) or Fever Sodium Chloride 1,000 mls @ 150 mls/hr 04/07/22 15:50 04/08/22 01:01 Normal Saline Iv IV CONT 150 mls/hr .Q6H40M RASHID Administration Lactase 3,000 unit 04/08/22 00:00 Lactase 3,000 Unit Tablet PO DAILY PRN Lactose Intolerance Lamotrigine 200 mg 04/08/22 09:00 Lamotrigine 100 Mg Tablet PO BID RASHID Melatonin 10 mg 04/08/22 21:00 Melatonin 5 Mg Tablet PO HS RASHID Metoclopramide HCl 20 mg 04/08/22 09:00 Metoclopramide Hcl 10 Mg/10 Ml Soln Udc BY MOUTH BID [facility] Miscellaneous Information 0 each 04/08/22 00:01 Atogepant [Qulipta] 60 Mg Tablet Is Nonformulary - Can Patient Use From Home? XX 05/08/22 00:00 CLARIFY RASHID Miscellaneous Information 0 each 04/08/22 00:01 [id number] [Refresh Optive Luis-3 (Pf)] - Sub For Artificial Tears Or Use
[2022-04-08] MEDS: FLUTICASONE/SALMETEROL 230-21 MCG INHALER 1 PUFF 2 PUFF INHALATION (10:02)
[2022-04-08] MEDS: polyethylene glycoL 3350 17 GM POWD.PACK PO (10:09)
[2022-04-08] MEDS: ROSUVASTATIN 10 MG TABLET 40 MG PO (10:10)
[2022-04-08] MEDS: METOCLOPRAMIDE HCL 10 MG/10 ML SOLN UDC 20 MG BY MOUTH ×2 (10:10→17:50)
[2022-04-08] MEDS: prednisoLONE ACETATE 1% OPHTH 5 ML 1 DROP EACH EYE ×2 (10:10→21:07)
[2022-04-08] MEDS: PANTOPRAZOLE SODIUM IV 40 MG VIAL IV PUSH (10:10)
[2022-04-08] MEDS: VENLAFAXINE HCL XR 75 MG CAP.ER.24H PO (10:11)
[2022-04-08] MEDS: TAMSULOSIN HCL 0.4 MG CAPSULE PO (10:11)
[2022-04-08] MEDS: SUCRALFATE 1 GM TABLET PO ×4 (10:11→21:06)
[2022-04-08] MEDS: lamoTRIgine 100 MG TABLET 200 MG PO ×2 (10:12→17:51)
[2022-04-08] MEDS: DOCUSATE SODIUM 100 MG CAPSULE PO (10:12)
[2022-04-08] MEDS: ACYCLOVIR 400 MG TABLET 800 MG BY MOUTH ×2 (10:12→17:51)
[2022-04-08] MEDS: EZETIMIBE 10 MG TABLET PO (10:12)
[2022-04-08] MEDS: PANTOPRAZOLE 40 MG TABLET PO ×2 (10:13→17:52)
[2022-04-08] MEDS: TOLNAFTATE 1% POWDER 45 GM BTL 1 APPLIC TOPICAL ×2 (10:14→17:50)
[2022-04-08] MEDS: FLUDROCORTISONE ACETATE 0.1 MG TABLET PO ×2 (10:14→17:54)
[2022-04-08] MEDS: HYDROmorphone HCL INJ (*CRX) 1 MG/ML SYR IV PUSH ×4 (12:04→23:12)
--- NOTE | 2022-04-08 15:22 | PM.IMPN ---
Progress Note: A&P Assessment and Plan (1) Right sided abdominal pain: Code(s): R10.9 - Unspecified abdominal pain Status: Acute Assessment and Plan: Patient presented to ED on 04/07/2022 due to right upper quadrant abdominal pain. CT abdomen pelvis negative Status post cholecystectomy Etiology of pain not clear Bilateral nephrolithiasis noted but no obstructing calculi on CT Patient has history of gastric ulcers and has had increased bloating and belching GI consulted Patient does have abdominal hernias although general surgery does not feel as if is playing a role in her abdominal pain General surgery consulted Acute on chronic pancreatitis in the differential although patient has normal lipase and right-sided pain. To note hospitalized with similar symptoms in November of 2021 with a negative workup. Patient started on IV fluids Analgesics as needed (2) Incisional hernia of anterior abdominal wall without obstruction or gangrene: Code(s): K43.2 - Incisional hernia without obstruction or gangrene Status: Chronic Assessment and Plan: As above surgery does not feel as though her pain is related to the hernias. (3) Leukocytosis: Code(s): D72.829 - Elevated white blood cell count, unspecified Status: Acute Assessment and Plan: No obvious evidence to suggest underlying infection. (4) Gastroparesis: Code(s): K31.84 - Gastroparesis Status: Chronic Assessment and Plan: Continue Reglan. (5) Bilateral kidney stones: Code(s): N20.0 - Calculus of kidney Status: Chronic Assessment and Plan: Nonobstructing stones noted on CT, no acute issues.. Status post left-sided lithotripsy last week. (6) Diet-controlled diabetes mellitus: Code(s): E11.9 - Type 2 diabetes mellitus without complications Status: Acute Assessment and Plan: Random glucose 109. Plan MEDICAL DECISION MAKING NARRATIVE History obtained from: Patient. History from independent sources: GI consult note, General surgery consult note New problems addressed: Abdominal pain. Chronic illnesses addressed: Hernia, kidney stones Independent interpretation of studies: Labs and imaging/reports personally reviewed. Discussion of management with other providers: None. Comorbidities complicating care: None. Diagnostic tests considered but not ordered: None. Risk of complication: Low Time Spent With Patient Time: Encounter greater than 35 minutes Subjective Date/time seen: 04/08/22 15:22 Interval history: Patient resting in bed when seen today. Patient continued to have right upper quadrant pain with radiation to right side and back. Patient not currently having nausea and vomiting. Denies fever, headache, dizziness chest pain, shortness a breath and diarrhea. Patient has history of cholecystectomy. CT abdomen pelvis negative. Patient has history of gastroparesis.. GI and General surgery following. Review of Systems Review of Systems: All systems reviewed & are unremarkable except as noted in HPI and below Exam Narrative: GENERAL: Comfortable, no acute distress HENMT: moist mucous membranes EYES: EOM intact b/l NECK: no lymphadenopathy RESPIRATORY: clear to auscultation CARDIO: RRR GI: soft, right upper quadrant tenderness, right side tenderness, bowel sounds present SKIN: no rashes EXTREMITIES: no edema, redness or tenderness Objective Data Vital Signs Vital Signs: Vital Signs - 24 hr 04/07/22 16:55 04/07/22 20:32 04/07/22 22:00 Temperature 97.5 F L Pulse Rate 90 88 Respiratory Rate 12 18 Blood Pressure 124/82 139/75 Pulse Oximetry 98 96 Oxygen Delivery Room Air Oxygen Flow Rate 04/08/22 06:00 04/08/22 08:17 04/08/22 08:27 Temperature 98.1 F Pulse Rate 77 87 92 Respiratory Rate 20 32 H 17 Blood Pressure 154/62 H 134/88 140/86 Pulse Oximetry 94 91 95 Oxygen Delivery Nasal
--- NOTE | 2022-04-08 18:59 | PHAR ---
THE FOLLOWING HAVE BEEN IDENTIFIED TO CONTAIN: RX [id number] [facility] NAME: TRULANCE INGREDIENTS: PLECANATIDE -- 3 MG COLOR: WHITE TO OFF-WHITE SHAPE: MESA GRANDE IMPRINT: 3 , SP FORM: ORAL TABLET RX [id number] [facility] NAME: NEERU INGREDIENTS: CARIPRAZINE -- 3 MG COLOR: GREEN TO BLUE GREEN , WHITE IMPRINT: FL 3 FORM: ORAL CAPSULE RX [id number] [facility]UN[facility]UG NAME: ZENSUNSHINE INGREDIENTS: AMYLASE -- 81527 U LIPASE -- 50010 U PROTEASE -- 01695 U COLOR: YELLOW OPAQUE , WHITE OPAQUE SHAPE: CAPSULE-SHAPE IMPRINT: APTALIS 10 FORM: ORAL CAPSULE, DELAYED RELEASE
[2022-04-08] MEDS: TRIMETHOPRIM 100 MG TABLET PO (21:05)
[2022-04-08] MEDS: MONTELUKAST SODIUM 10 MG TABLET PO (21:05)
[2022-04-08] MEDS: traZODone HCL 50 MG TABLET 100 MG PO (21:05)
[2022-04-08] MEDS: MELATONIN 5 MG TABLET 10 MG PO (21:06)
[2022-04-09] MEDS: clonazePAM (*CRX) 0.5 MG TABLET PO ×5 (00:46→23:13)
[2022-04-09] MEDS: SODIUM CHLORIDE 0.9% IV 1,000 ML 150 ML IV CONT ×4 (00:46→23:13)
[2022-04-09] MEDS: ONDANSETRON INJ 4 MG/2 ML VIAL IV PUSH ×4 (04:20→19:56)
[2022-04-09 05:12] VITALS: BP 115/66; PULSE 85; RESP 20; TEMP 36.5; O2SAT 94
[2022-04-09] MEDS: HYDROmorphone HCL INJ (*CRX) 1 MG/ML SYR IV PUSH ×6 (05:50→23:13)
[2022-04-09 06:14] LABS: Hematocrit 36.2 % (37.0-47.0); Mean Corpuscular HGB Conc 30.4 g/dl (32-36); Mean Corpuscular Hemoglobin 25.4 pg (26-34); Mean Corpuscular Volume 83.6 fl (80-100); Mean Platelet Volume 9.1 fl (7.4-10.4); Platelet Count Result 316 k/mm3 (150-375); Red Blood Count 4.33 M/mm3 (4.2-5.4); Red Cell Distribution Width 15.4 % (11.5-14.5); White Blood Count 7.3 K/mm3 (4.5-10.0)
[2022-04-09 06:27] LABS: Alanine Aminotransferase 17 U/L (6-35); Albumin Level 3.6 g/dL (3.5-5.1); Alkaline Phosphatase 94 U/L (38-126); Anion Gap 5 mmol/L (8-16); Aspartate Amino Transferase 20 U/L (14-36); Bilirubin,Total 0.4 mg/dL (0.2-1.3); Blood Urea Nitrogen 5 mg/dL (7-17); Calcium 8.3 mg/dL (8.4-10.2); Carbon Dioxide 21 mmol/L (22-30); Chloride 108 mmol/L (98-107); Estimated CRCL calculation 132 ml/min; Estimated Glomerular Filt Rate > 60; Glucose 98 mg/dL (65-110); Potassium 3.7 mmol/L (3.4-5.0); Sodium 134 mmol/L (137-145)
[2022-04-09] MEDS: FLUTICASONE/SALMETEROL 230-21 MCG INHALER 1 PUFF 2 PUFF INHALATION ×2 (07:39→23:09)
[2022-04-09] MEDS: polyethylene glycoL 3350 17 GM POWD.PACK PO (09:23)
[2022-04-09] MEDS: METOCLOPRAMIDE HCL 10 MG/10 ML SOLN UDC 20 MG BY MOUTH ×2 (09:23→16:52)
[2022-04-09] MEDS: SUCRALFATE 1 GM TABLET PO ×4 (09:24→21:06)
[2022-04-09] MEDS: ROSUVASTATIN 10 MG TABLET 40 MG PO (09:24)
[2022-04-09] MEDS: PANTOPRAZOLE 40 MG TABLET PO ×2 (09:24→16:51)
[2022-04-09] MEDS: DICYCLOMINE HCL 10 MG CAPSULE 20 MG BY MOUTH (09:25)
[2022-04-09] MEDS: VENLAFAXINE HCL XR 75 MG CAP.ER.24H PO (09:25)
[2022-04-09] MEDS: DOCUSATE SODIUM 100 MG CAPSULE PO (09:26)
[2022-04-09] MEDS: EZETIMIBE 10 MG TABLET PO (09:26)
[2022-04-09] MEDS: lamoTRIgine 100 MG TABLET 200 MG PO ×2 (09:26→16:52)
[2022-04-09] MEDS: TAMSULOSIN HCL 0.4 MG CAPSULE PO (09:26)
[2022-04-09] MEDS: FLUDROCORTISONE ACETATE 0.1 MG TABLET PO ×2 (09:26→16:53)
[2022-04-09] MEDS: ACYCLOVIR 400 MG TABLET 800 MG BY MOUTH ×2 (09:27→16:53)
[2022-04-09] MEDS: prednisoLONE ACETATE 1% OPHTH 5 ML 1 DROP EACH EYE ×2 (09:27→21:06)
[2022-04-09 09:30] VITALS: PULSE 85; RESP 20; O2SAT 94
--- NOTE | 2022-04-09 10:05 | WPDGIPROGNO ---
Progress Note: A&P Assessment and Plan (1) Right sided abdominal pain: Code(s): R10.9 - Unspecified abdominal pain Status: Acute Assessment and Plan: Pain appears more likely to be rib cage pain. She appears tender along the right ribs. Plan for rib x-ray. We will advance her diet to a regular diet today. Consider musculoskeletal pain in the ribcage contributing to current pain. (2) Incisional hernia of anterior abdominal wall without obstruction or gangrene: Code(s): K43.2 - Incisional hernia without obstruction or gangrene Status: Chronic Assessment and Plan: Surgery following. (3) Obesity (BMI 30-39.9): Code(s): E66.9 - Obesity, unspecified Status: Acute (4) Bipolar 1 disorder: Code(s): F31.9 - Bipolar disorder, unspecified Status: Chronic Subjective Date/time seen: 04/09/22 10:05 Interval history: Patient complains of right low chest pain this morning. She states it hurts when she moves. Also pain with deep breathing.. Appears be tender along the right rib margin. Patient tolerated liquids with no problem. No nausea or vomiting. EGD yesterday was normal. Review of Systems Review of Systems: Review of systems noncontributory. Exam Narrative: Physical exam reveals patient be alert. Comfortable lying stool still in bed. HEENT exam reveals no icterus. Lungs are clear. Heart without murmur. Abdomen soft she appears tender along the right lower ribcage. Objective Data Vital Signs Vital Signs: Vital Signs - 24 hr 04/08/22 14:00 04/08/22 20:16 04/08/22 22:08 Temperature 97.6 F 97.9 F Pulse Rate 88 85 70 Respiratory Rate 16 18 14 Blood Pressure 131/71 138/68 Pulse Oximetry 94 91 04/09/22 05:12 Temperature 97.7 F Pulse Rate 85 Respiratory Rate 20 Blood Pressure 115/66 Pulse Oximetry 94 Intake/Output Intake/Output: Intake & Output 04/06/22 04/07/22 04/08/22 04/09/22 23:59 23:59 23:59 23:59 Intake Total 1100 5300 2100 Balance 1100 5300 2100 Meds/Results Medications: Active Medications Generic Name Dose Route Start Last Admin Trade Name Freq PRN Reason Stop Dose Admin Hydrocodone Bitart/Acetaminophen 1 tab 04/08/22 11:27 Hydrocodone/Acetaminophen (*Crx) 5-325 Mg Tablet PO Q6H PRN Pain Rated 4-6 Acyclovir 800 mg 04/08/22 09:00 04/09/22 09:27 Acyclovir 400 Mg Tablet BY MOUTH 800 mg BID RASHID Administration Albuterol 2.5 mg 04/08/22 00:00 Albuterol Sulfate Neb 2.5 Mg/3 Ml Inh INHALATION Q4-6H PRN shortness of breath or wheezing Albuterol 1 puff 04/08/22 00:00 Albuterol Sulfate (*Sp) Aerosol 1 Puff INHALATION Q4-6H PRN Shortness Of Breath Calcitriol 0.25 mcg 04/10/22 09:00 Calcitriol 0.25 Mcg Capsule BY MOUTH MoWeFr@0900 [facility] Clonazepam 0.5 mg 04/08/22 01:25 04/09/22 05:48 Clonazepam (*Crx) 0.5 Mg Tablet PO 0.5 mg Q6HR RASHID Administration Diclofenac Sodium 1 applic 04/08/22 07:05 Diclofenac Sodium 1% 100 Gm Gel (*Bkc) TOPICAL QID PRN BILATERAL KNEE PAIN Dicyclomine HCl 20 mg 04/07/22 15:50 04/08/22 05:58 Dicyclomine Hcl Inj 20 Mg/2 Ml Vial IM 20 mg Q6H PRN Administration Abdominal Cramping Dicyclomine HCl 20 mg 04/08/22 00:00 04/09/22 09:25 Dicyclomine Hcl 10 Mg Capsule BY MOUTH 20 mg TID PRN Administration Abdominal discomfort Docusate Sodium 100 mg 04/08/22 09:00 04/09/22 09:26 Docusate Sodium 100 Mg Capsule PO 100 mg QAM [facility] Administration Ezetimibe 10 mg 04/08/22 09:00 04/09/22 09:26 Ezetimibe 10 Mg Tablet PO 10 mg DAILY [facility] Administration Ergocalciferol 50,000 units 04/10/22 09:00 Ergocalciferol 50,000 Units Capsule PO Mo@0900 [facility] Fludrocortisone Acetate 0.1 mg 04/08/22 09:00 04/09/22 09:26 Fludrocortisone Acetate 0.1 Mg Tablet PO 0.1 mg BID [facility] Administration Home Med 1 each 04/08/22 09:00 04/09/22 09:29 Deborah
--- NOTE | 2022-04-09 11:27 | WPDANESPN ---
Anes - Prog Note Post-Op Date/Time: 04/09/22 11:27 Cardiovascular status: normal Respiratory status: normal Airway patency: baseline Mental status: baseline Post-Op hydration status: normal Vital Signs: Last Vital Signs Temp 36.5 C 04/09/22 05:12 Pulse 85 04/09/22 05:12 Resp 20 04/09/22 05:12 BP 115/66 04/09/22 05:12 Pulse Ox 94 04/09/22 05:12 O2 Del Method Room Air 04/08/22 10:05 O2 Flow Rate 2 04/08/22 08:17 Pain Score (VAS): 04/28 I/O: Intake & Output 04/08/22 04/09/22 04/09/22 23:59 07:59 15:59 Intake Total 2580 2100 360 Balance 2580 2100 360 Laboratory Tests 04/09/22 05:47 04/09/22 05:47 04/09/22 04/09/22 05:47 05:47 WBC 7.3 RBC 4.33 Hgb 11.0 L Hct 36.2 L MCV 83.6 MCH 25.4 L MCHC 30.4 L RDW 15.4 H Plt Count 316 MPV 9.1 Sodium 134 L Potassium 3.7 Chloride 108 H Carbon Dioxide 21 L Anion Gap 5 L BUN 5 L Creatinine 0.50 L Estim Creat Clear Calc 132 Estimated GFR > 60 Glucose 98 Calcium 8.3 L Total Bilirubin 0.4 AST 20 ALT 17 Alkaline Phosphatase 94 Total Protein 6.0 L Albumin 3.6 Post-procedural complaints: none Patient Feedback: Patient satisfied with anesthetic care.
[2022-04-09] MEDS: TOLNAFTATE 1% POWDER 45 GM BTL 1 APPLIC TOPICAL ×2 (13:17→16:50)
[2022-04-09] MEDS: PANTOPRAZOLE SODIUM IV 40 MG VIAL IV PUSH (13:18)
--- NOTE | 2022-04-09 13:50 | PM.PNGS ---
Progress Note: A&P Assessment and Plan (1) Right upper quadrant pain: Code(s): R10.11 - Right upper quadrant pain Status: Acute Assessment and Plan: Pain is no better today. Rib films negative. EGD negative. Patient has had cholecystectomy. Liver function tests are normal. Consider sphincter of Oddi syndrome, biliary papillary dysplasia. Dr. Lawson seeing the patient as well. (2) Incisional hernia of anterior abdominal wall without obstruction or gangrene: Code(s): K43.2 - Incisional hernia without obstruction or gangrene Status: Chronic Assessment and Plan: Small incisional hernias which are not the site of her tenderness. They are not tender to palpation to suggest incarceration. There was no evidence of incarceration on CT scan. They have been present on multiple CT scans previously and are unchanged. Do not feel hernias are the source of her pain. (3) Intractable nausea and vomiting: Code(s): R11.2 - Nausea with vomiting, unspecified Status: Acute Assessment and Plan: Still nauseated but not vomiting. Poor appetite. Subjective Subjective Date/Time Seen: 04/09/22 13:51 Patient reports: still having pain, nausea (Not much appetite but no vomiting) and afebrile Interval history: Patient is still having right upper quadrant pain same as before. Her EGD yesterday was negative. She reports a history of falling not long ago. Rib films were performed at these are negative as well. Review of Systems Review of Systems: All systems reviewed & are unremarkable except as noted in HPI and below (HPI and those items noted below) Constitutional: Constitutional: Denies chills and Denies fever(s) Cardiovascular: Cardiovascular: Denies chest pain, Denies diaphoresis, Denies dyspnea and Denies paroxysmal nocturnal dyspnea Respiratory: Respiratory: Denies chest congestion, Denies cough and Denies dyspnea Integumentary/Breasts: Skin/Breast: Denies lesions and Denies rash Exam Const: General: comfortable and no acute distress; No confusion Orientation/consciousness: patient oriented x3 and No confusion GI: Inspection: obesity, scar and no visible herniation GI Palp: Yes Soft to palpation, Yes Tenderness to palpation present (GI) (Mostly right upper quadrant although generally tender throughout), No Guarding due to palpation present (GI), Yes Hernia present (Area of hernias and scar are the least tender of her abdominal exam) and No Rebound tenderness present Auscultation: Hypoactive bowel sounds present Neuro: General: patient oriented x3, no focal motor deficits and No confusion Extrem: General: no calf tenderness and no edema Objective Data Vital Signs Vital Signs: Vital Signs - 24 hr 04/08/22 14:00 04/08/22 20:16 04/08/22 22:08 Temperature 36.4 C 36.6 C Pulse Rate 88 85 70 Respiratory Rate 16 18 14 Blood Pressure 131/71 138/68 Pulse Oximetry 94 91 Oxygen Delivery 04/09/22 05:12 04/09/22 09:30 Temperature 36.5 C Pulse Rate 85 85 Respiratory Rate 20 20 Blood Pressure 115/66 Pulse Oximetry 94 94 Oxygen Delivery Room Air Intake/Output Intake/Output: Intake & Output 04/06/22 04/07/22 04/08/22 04/09/22 23:59 23:59 23:59 23:59 Intake Total 1100 5300 2460 Balance 1100 5300 2460 Meds/Results Medications: Active Medications Generic Name Dose Route Start Last Admin Trade Name Freq PRN Reason Stop Dose Admin Hydrocodone Bitart/Acetaminophen 1 tab 04/08/22 11:27 Hydrocodone/Acetaminophen (*Crx) 5-325 Mg Tablet PO Q6H PRN Pain Rated 4-6 Acyclovir 800 mg 04/08/22 09:00 04/09/22 09:27 Acyclovir 400 Mg Tablet BY MOUTH 800 mg BID RASHID Administration Albuterol 2.5 mg 04/08/22 00:00 Albuterol Sulfate Neb 2.5 Mg/3 Ml Inh INHALATION Q4-6H PRN shortness of breath or wheezing Albuterol 1 puff 04/08/22 00:00 Albuterol Sulfate (*Sp) Aerosol 1 Puff INHALATION Q4-6H PRN Shortness O
--- NOTE | 2022-04-09 15:10 | PM.IMPN ---
Progress Note: A&P Assessment and Plan (1) Right sided abdominal pain: Code(s): R10.9 - Unspecified abdominal pain Status: Acute Assessment and Plan: Patient presented to ED on 04/07/2022 due to right upper quadrant abdominal pain. CT abdomen pelvis negative Status post cholecystectomy Etiology of pain not clear Bilateral nephrolithiasis noted but no obstructing calculi on CT Patient has history of gastric ulcers and has had increased bloating and belching GI consulted Patient does have abdominal hernias although general surgery does not feel as if is playing a role in her abdominal pain General surgery consulted Acute on chronic pancreatitis in the differential although patient has normal lipase and right-sided pain. To note hospitalized with similar symptoms in November of 2021 with a negative workup. Patient started on IV fluids Analgesics as needed 04/09/22 Patient being seen by General surgery and GI, appreciate their recommendations Unlikely patient's hernias or source of the pain. Patient's pain possibly musculoskeletal in etiology X-ray of right rib cage negative Patient did report falling a week or so ago. Although x-ray negative patient could still have rib bruising. Patient could be having gastroparesis flare. Abdomen tympanic as well as hollow on auscultation. 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 (3) Leukocytosis: Code(s): D72.829 - Elevated white blood cell count, unspecified Status: Acute Assessment and Plan: No obvious evidence to suggest underlying infection. (4) Gastroparesis: Code(s): K31.84 - Gastroparesis Status: Chronic Assessment and Plan: Continue Reglan. (5) Bilateral kidney stones: Code(s): N20.0 - Calculus of kidney Status: Chronic Assessment and Plan: Nonobstructing stones noted on CT, no acute issues.. Status post left-sided lithotripsy last week. (6) Diet-controlled diabetes mellitus: Code(s): E11.9 - Type 2 diabetes mellitus without complications Status: Acute Assessment and Plan: Random glucose 109. Plan MEDICAL DECISION MAKING NARRATIVE History obtained from: Patient. History from independent sources: GI consult note, General surgery consult note New problems addressed: Abdominal pain. Chronic illnesses addressed: Hernia, kidney stones Independent interpretation of studies: Labs and imaging/reports personally reviewed. Discussion of management with other providers: None. Comorbidities complicating care: None. Diagnostic tests considered but not ordered: None. Risk of complication: Low Time Spent With Patient Time: Greater than 35 minutes Subjective Date/time seen: 04/09/22 15:10 Interval history: Patient complains of right low chest pain this morning. She states it hurts when she moves. Also pain with deep breathing. Epigastric tenderness. Patient tolerated liquids with no problem. No nausea or vomiting. Review of Systems Review of Systems: All systems reviewed & are unremarkable except as noted in HPI and below Exam Narrative: GENERAL: Comfortable, no acute distress HENMT: moist mucous membranes EYES: EOM intact b/l NECK: no lymphadenopathy RESPIRATORY: clear to auscultation CARDIO: RRR GI: soft, right upper quadrant tenderness, epigastric tenderness, bowel sounds present, epigastric area tympanic to percussion SKIN: no rashes EXTREMITIES: no edema, redness or tenderness Objective Data Vital Signs Vital Signs: Vital Signs - 24 hr 04/08/22 20:16 04/08/22 22:08 04/09/22 05:12 Temperature 97.9 F 97.7 F Pulse Rate 85 70 85 Respiratory Rate 18 14 20 Blood Pressure 138/68
[2022-04-09 15:35] VITALS: BP 133/73; PULSE 90; RESP 18; TEMP 36.3; O2SAT 94
[2022-04-09] MEDS: MELATONIN 5 MG TABLET 10 MG PO (21:06)
[2022-04-09] MEDS: TRIMETHOPRIM 100 MG TABLET PO (21:06)
[2022-04-09] MEDS: traZODone HCL 50 MG TABLET 100 MG PO (21:07)
[2022-04-09] MEDS: MONTELUKAST SODIUM 10 MG TABLET PO (21:07)
[2022-04-09 21:47] VITALS: BP 126/80; PULSE 80; RESP 18; TEMP 36.7; O2SAT 94
[2022-04-09 23:13] VITALS: O2SAT 94
[2022-04-10] MEDS: ONDANSETRON INJ 4 MG/2 ML VIAL IV PUSH ×3 (00:04→08:54)
[2022-04-10] MEDS: HYDROmorphone HCL INJ (*CRX) 1 MG/ML SYR IV PUSH ×2 (03:22→06:15)
[2022-04-10 05:56] LABS: Hematocrit 36.6 % (37.0-47.0); Mean Corpuscular HGB Conc 30.1 g/dl (32-36); Mean Corpuscular Hemoglobin 25.2 pg (26-34); Mean Corpuscular Volume 83.8 fl (80-100); Platelet Count Result 304 k/mm3 (150-375); Red Blood Count 4.37 M/mm3 (4.2-5.4); Red Cell Distribution Width 15.4 % (11.5-14.5); White Blood Count 7.9 K/mm3 (4.5-10.0)
[2022-04-10 06:00] VITALS: BP 120/77; PULSE 80; RESP 18; TEMP 36.7; O2SAT 96
[2022-04-10] MEDS: clonazePAM (*CRX) 0.5 MG TABLET PO ×2 (06:16→12:55)
[2022-04-10] MEDS: SODIUM CHLORIDE 0.9% IV 1,000 ML 150 ML IV CONT (06:16)
[2022-04-10 06:18] LABS: Alanine Aminotransferase 20 U/L (6-35); Albumin Level 3.5 g/dL (3.5-5.1); Alkaline Phosphatase 97 U/L (38-126); Anion Gap 7 mmol/L (8-16); Aspartate Amino Transferase 23 U/L (14-36); Bilirubin,Total 0.4 mg/dL (0.2-1.3); Blood Urea Nitrogen 2 mg/dL (7-17); Calcium 8.2 mg/dL (8.4-10.2); Carbon Dioxide 21 mmol/L (22-30); Chloride 112 mmol/L (98-107); Estimated CRCL calculation 132 ml/min; Estimated Glomerular Filt Rate > 60; Glucose 99 mg/dL (65-110); Potassium 3.6 mmol/L (3.4-5.0); Sodium 140 mmol/L (137-145)
--- NOTE | 2022-04-10 08:30 | PHAR ---
The patient's home med of Estradiol 0.1mg patch has been verified.
--- NOTE | 2022-04-10 09:02 | WPDGIPROGNO ---
Progress Note: A&P Assessment and Plan (1) Right-sided chest pain: Code(s): R07.9 - Chest pain, unspecified Status: Acute Assessment and Plan: Patient with pain but predominantly right chest wall pain. Etiology unclear. Rib x-rays revealed no fracture. She reports a fall within the last 2 weeks. I suspect this is the etiology of her discomfort. plan to give a trial of Motrin. (2) Epigastric abdominal pain: Code(s): R10.13 - Epigastric pain Status: Acute Assessment and Plan: EGD unremarkable. LFTs remain normal. She has a history of cholecystectomy. No indication for biliary dysfunction at this time. (3) Incisional hernia of anterior abdominal wall without obstruction or gangrene: Code(s): K43.2 - Incisional hernia without obstruction or gangrene Status: Chronic Assessment and Plan: Ventral hernia noted. Could be etiology of discomfort. Surgery following. Conservative management is encouraged at this point. (4) Diet-controlled diabetes mellitus: Code(s): E11.9 - Type 2 diabetes mellitus without complications Status: Acute (5) Bipolar 1 disorder: Code(s): F31.9 - Bipolar disorder, unspecified Status: Chronic Subjective Date/time seen: 04/10/22 09:02 Interval history: Patient continues to complain of pain along the right rib margin as well as epigastric area. Poor appetite noted. Review of Systems Review of Systems: Review of systems noncontributory. Exam Narrative: Physical exam reveals patient be alert. She is afebrile. Anicteric. Lungs are clear. Heart without murmur. Abdomen bowel sounds present soft she has a ventral hernia. Modest tenderness in the epigastric area she has very marked and severe tenderness in the right lower ribcage. She states this is the primary discomfort. Worse with movement and deep breaths. Previous x-ray imaging of the right ribcage revealed no fracture. Objective Data Vital Signs Vital Signs: Vital Signs - 24 hr 04/09/22 09:30 04/09/22 15:35 04/09/22 21:47 Temperature 97.4 F L 98.0 F Pulse Rate 85 90 80 Respiratory Rate 20 18 18 Blood Pressure 133/73 126/80 Pulse Oximetry 94 94 94 Oxygen Delivery Room Air 04/09/22 23:13 04/10/22 06:00 Temperature 98.1 F Pulse Rate 80 Respiratory Rate 18 Blood Pressure 120/77 Pulse Oximetry 94 96 Oxygen Delivery Room Air Intake/Output Intake/Output: Intake & Output 04/07/22 04/08/22 04/09/22 04/10/22 23:59 23:59 23:59 23:59 Intake Total 1100 5300 5420 1000 Balance 1100 5300 5420 1000 Meds/Results Medications: Active Medications Generic Name Dose Route Start Last Admin Trade Name Freq PRN Reason Stop Dose Admin Hydrocodone Bitart/Acetaminophen 1 tab 04/08/22 11:27 Hydrocodone/Acetaminophen (*Crx) 5-325 Mg Tablet PO Q6H PRN Pain Rated 4-6 Acyclovir 800 mg 04/08/22 09:00 04/09/22 16:53 Acyclovir 400 Mg Tablet BY MOUTH 800 mg BID RASHID Administration Albuterol 2.5 mg 04/08/22 00:00 Albuterol Sulfate Neb 2.5 Mg/3 Ml Inh INHALATION Q4-6H PRN shortness of breath or wheezing Albuterol 1 puff 04/08/22 00:00 Albuterol Sulfate (*Sp) Aerosol 1 Puff INHALATION Q4-6H PRN Shortness Of Breath Calcitriol 0.25 mcg 04/10/22 09:00 Calcitriol 0.25 Mcg Capsule BY MOUTH [id number] [facility] Clonazepam 0.5 mg 04/08/22 01:25 04/10/22 06:16 Clonazepam (*Crx) 0.5 Mg Tablet PO 0.5 mg Q6HR RASHID Administration Diclofenac Sodium 1 applic 04/08/22 07:05 Diclofenac Sodium 1% 100 Gm Gel (*Bkc) TOPICAL QID PRN BILATERAL KNEE PAIN Dicyclomine HCl 20 mg 04/07/22 15:50 04/08/22 05:58 Dicyclomine Hcl Inj 20 Mg/2 Ml Vial IM 20 mg Q6H PRN Administration Abdominal Cramping Dicyclomine HCl 20 mg 04/08/22 00:00 04/09/22 09:25 Dicyclomine Hcl 10 Mg Capsule BY MOUTH 20 mg TID PRN Administration Abdominal discomfort D
[2022-04-10] MEDS: METOCLOPRAMIDE HCL 10 MG/10 ML SOLN UDC 20 MG BY MOUTH (09:07)
[2022-04-10] MEDS: prednisoLONE ACETATE 1% OPHTH 5 ML 1 DROP EACH EYE (09:07)
[2022-04-10] MEDS: SUCRALFATE 1 GM TABLET PO (09:08)
[2022-04-10] MEDS: FLUDROCORTISONE ACETATE 0.1 MG TABLET PO (09:08)
[2022-04-10] MEDS: TAMSULOSIN HCL 0.4 MG CAPSULE PO (09:08)
[2022-04-10] MEDS: EZETIMIBE 10 MG TABLET PO (09:08)
[2022-04-10] MEDS: PANTOPRAZOLE SODIUM IV 40 MG VIAL IV PUSH (09:08)
[2022-04-10] MEDS: lamoTRIgine 100 MG TABLET 200 MG PO (09:08)
[2022-04-10] MEDS: ACYCLOVIR 400 MG TABLET 800 MG BY MOUTH (09:09)
[2022-04-10] MEDS: PANTOPRAZOLE 40 MG TABLET PO (09:09)
[2022-04-10] MEDS: ERGOCALCIFEROL 50,000 UNITS CAPSULE 50000 UNITS PO (09:09)
[2022-04-10] MEDS: calcitrioL 0.25 MCG CAPSULE BY MOUTH (09:09)
[2022-04-10] MEDS: VENLAFAXINE HCL XR 75 MG CAP.ER.24H PO (09:09)
[2022-04-10] MEDS: ROSUVASTATIN 10 MG TABLET 40 MG PO (09:09)
[2022-04-10] MEDS: DOCUSATE SODIUM 100 MG CAPSULE PO (09:09)
[2022-04-10] MEDS: polyethylene glycoL 3350 17 GM POWD.PACK PO (09:10)
[2022-04-10] MEDS: ENOXAPARIN 40 MG/0.4 ML SYRINGE SUB-Q (09:13)
[2022-04-10] MEDS: TOLNAFTATE 1% POWDER 45 GM BTL 1 APPLIC TOPICAL (09:15)
[2022-04-10] MEDS: DICYCLOMINE HCL 10 MG CAPSULE 20 MG BY MOUTH (09:16)
[2022-04-10] MEDS: HYDROcodone/acetaminophen (*CRX) 5-325 MG TABLET 1 TAB PO (09:31)
[2022-04-10] MEDS: FLUTICASONE/SALMETEROL 230-21 MCG INHALER 1 PUFF 2 PUFF INHALATION (09:32)
[2022-04-10 09:34] VITALS: O2SAT 95
--- NOTE | 2022-04-10 12:04 | PM.DS ---
DS: Admitting Diagnosis Discharge Date 04/10/22 Admitting Diagnosis RUQ pain DS: Discharge Diagnosis Discharge Diagnosis (1) Right sided abdominal pain: Code(s): R10.9 - Unspecified abdominal pain Status: Acute Assessment and Plan: Patient presented to ED on 04/07/2022 due to right upper quadrant abdominal pain. CT abdomen pelvis negative Status post cholecystectomy Etiology of pain not clear Bilateral nephrolithiasis noted but no obstructing calculi on CT Patient has history of gastric ulcers and has had increased bloating and belching GI consulted Patient does have abdominal hernias although general surgery does not feel as if is playing a role in her abdominal pain General surgery consulted Acute on chronic pancreatitis in the differential although patient has normal lipase and right-sided pain. To note hospitalized with similar symptoms in November of 2021 with a negative workup. Patient started on IV fluids Analgesics as needed 04/09/22 Patient being seen by General surgery and GI, appreciate their recommendations Unlikely patient's hernias or source of the pain. Patient's pain possibly musculoskeletal in etiology X-ray of right rib cage negative Patient did report falling a week or so ago. Although x-ray negative patient could still have rib bruising. Patient could be having gastroparesis flare. Abdomen tympanic as well as hollow on auscultation. 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 (3) Leukocytosis: Code(s): D72.829 - Elevated white blood cell count, unspecified Status: Acute Assessment and Plan: No obvious evidence to suggest underlying infection. (4) Gastroparesis: Code(s): K31.84 - Gastroparesis Status: Chronic Assessment and Plan: Continue Reglan. (5) Bilateral kidney stones: Code(s): N20.0 - Calculus of kidney Status: Chronic Assessment and Plan: Nonobstructing stones noted on CT, no acute issues.. Status post left-sided lithotripsy last week. (6) Diet-controlled diabetes mellitus: Code(s): E11.9 - Type 2 diabetes mellitus without complications Status: Acute Assessment and Plan: Random glucose 109. Plan MEDICAL DECISION MAKING NARRATIVE History obtained from: Patient. History from independent sources: GI consult note, General surgery consult note New problems addressed: Abdominal pain. Chronic illnesses addressed: Hernia, kidney stones Independent interpretation of studies: Labs and imaging/reports personally reviewed. Discussion of management with other providers: GI Comorbidities complicating care: None. Diagnostic tests considered but not ordered: None. Risk of complication: Low DS: Summary Hospital Course Reason for hospitalization: Right upper quadrant pain Hospital Course: This is a 51-year-old female with diet-controlled diabetes, gastroparesis, GERD, gastric ulcer, chronic pancreatitis, kidney stones with recent lithotripsy, several ventral hernias, and other comorbidities who presented to the emergency department for evaluation of abdominal pain. Patient described the pain as right upper quadrant radiating to the right flank and to the mid back. Patient had left-sided lithotripsy done a week prior. Urology consulted. Patient's symptoms included abdominal pain, increased bloating, belching and some epigastric tenderness. Patient does have history of cholecystectomy as well as multiple hernias. General surgery consulted and did not believe the patient's pain is related to the hernias and that hernia status is unchanged since last ER visit. Labs were of no significance. CT abdomen pelvis negative, lore
== END 2022-04-10 14:23 | disposition home or self-care (01) | DRG 392 ==
LOC: ANHED 14:27 → ANH3MED 17:23
PROVIDERS: Internal Medicine Gastroenterology; Physician Assistant; Admitting Provider Internal Medicine; Emergency Provider Emergency Medicine; PCP Physician Assistant; Visit Provider Internal Medicine Critical Care Medicine
PROC: 0DJ08ZZ Inspection of Upper Intestinal Tract, Via Natural or Artificial Opening Endoscopic (ICD-10-PCS; CPT 43235; principal; 2022-04-08 08:30)
DX: R10.13 Epigastric pain (principal); Z68.41 Body mass index [BMI] 40.0-44.9, adult; R07.89 Other chest pain; K31.84 Gastroparesis; K43.2 Incisional hernia without obstruction or gangrene; N20.0 Calculus of kidney; E11.9 Type 2 diabetes mellitus without complications; D72.829 Elevated white blood cell count, unspecified; E78.5 Hyperlipidemia, unspecified; W19.XXXA Unspecified fall, initial encounter; M81.0 Age-related osteoporosis without current pathological fracture; H54.8 Legal blindness, as defined in USA; E66.01 Morbid (severe) obesity due to excess calories; Z90.49 Acquired absence of other specified parts of digestive tract; Z90.710 Acquired absence of both cervix and uterus; Z87.891 Personal history of nicotine dependence; Z90.722 Acquired absence of ovaries, bilateral; Z20.822 Contact with and (suspected) exposure to COVID-19; Z87.11 Personal history of peptic ulcer disease
CPT/HCPCS: 36415; 71100; 74176; 80053; 81001; 83690; 85025; 85027; 87081; 87636; 94640; 96372; 96375; 99285; A9270; C9113; J0131; J0500; J1170; J1200; J1650; J2060; J2405; J2704; J2765; J7030; J7120

== ENCOUNTER 2022-04-24 11:19 | Outpatient (CLI) | payer BC, MEDICAID, SELFPAY ==
--- NOTE | ~2022-04-24 | XR_ITS ---
EXAMINATION: XR abdomen/kub 1V INDICATION: Calculus of the kidney TECHNIQUE: Supine views of the abdomen were obtained on 2 radiographs. COMPARISON: 03/31/2022 FINDINGS: There are multiple unchanged stones in the lower pole of the right kidney which measure up to 4 mm. Multiple stones are seen in the left kidney which measure up to 3 mm. No stones are identifi ed along the expected courses of the ureters or in the urinary bladder. There are phleboliths of the pelvis. Cholecystectomy clips are noted. IMPRESSION: 1. Bilateral nephrolithiasis. Reviewed, dictated and finalized at location B. [facility]IDENT
== END 2022-04-24 11:20 | disposition home or self-care (01) ==
LOC: ANHIMG 11:23
PROVIDERS: PCP Physician Assistant; Visit Provider Urology
DX: N20.0 Calculus of kidney (principal)
CPT/HCPCS: 74018

== ENCOUNTER 2022-05-22 07:44 | Outpatient (CLI) | payer BC, MEDICAID, SELFPAY ==
[2022-05-22 09:22] LABS: Prothrombin Time 12.3 Seconds (11.1-14.7)
[2022-05-22 09:23] LABS: Partial Thromboplastin Time 28.1 SECONDS (22.3-36.8)
== END 2022-05-22 07:45 | disposition home or self-care (01) ==
LOC: ANHSURGERY 07:48
PROVIDERS: PCP Physician Assistant; Visit Provider Urology
DX: N20.0 Calculus of kidney (principal); Z01.818 Encounter for other preprocedural examination
CPT/HCPCS: 36415; 85610; 85730; 87086

== ENCOUNTER 2022-05-26 00:37 | Day surgery (SDC) | payer BC, MEDICAID, SELFPAY ==
[2022-05-16 12:23] VITALS: BMI 39.3
--- NOTE | 2022-05-16 12:32 | PC.NURSE ---
Report to the Outpatient Waiting Room, entrance under the green pavilion located off [facility], at time 6:30 on date 05/26/22. Planned Procedure Time: 8:30. Time changes happen often and if your time is changed the preop area will call you the afternoon before. - You and your visitor will be asked to self-screen and do not enter if you have any COVID symptoms. - Only one visitor is requested with a max of two and NO children visitors are allowed at this time. - The patient visitor may be requested to leave or wait in car when not with patient due to distancing restrictions. - A mask is optional within the hospital at this time. Patients may have clear liquids (water, carbonated beverages, clear teas, apple juice) until 3 hours prior to surgery (5:30) with a maximum of 20 ounces. - No food from midnight until time of surgery Take the following medications with a SIP of water the morning of surgery: ACYCLOVIR, INHALERS, EYE DROPS, CLONAZEPAM, FLUDRICORTISONE, LAMOTRIGINE, TRIMETHOPRIM, VENLAFAXINE, VRAYLAR DO NOT STOP ANY OF YOUR OTHER PRESCRIPTION MEDICATIONS PRIOR TO SURGERY EXCEPT THE FOLLOWING Medications to discontinue per physician: VITAMINS/SUPPLEMENTS Date to take last dose: 05/22/22 Please no make-up, nail welsh, hairspray, perfume, deodorant, or body powder the day of surgery. No jewelry (including any body piercings) or valuables the day of surgery, leave them at home. Please take a shower or bath the night before, or the morning of, surgery with an antibacterial soap. Wear comfortable, loose fitting clothing. - Jewelry must be removed prior to entering the operating room. Rings and piercings that are not removed may be cut off. - The hospital will not accept responsibility for valuables. - Please leave all valuables, including medications, at home the day of surgery. If you are going home after surgery, a licensed hire car driver must drive you home. - NO public transportation without another adult if you receive anesthesia. - We recommend that an adult stay with you for 24 hours following discharge. - We also recommend that you do not drive, make important decision, drink alcoholic beverages, or take any drugs that were not prescribed by your health care provider for at least 24 hours after your discharge time. Follow any additional instructions given to you from your surgeon. If you or anyone in your household have experienced Covid symptoms in the past week, please notify your surgeon or the nurse liaison at the phone number below for possible testing. Telephone instructions given to TYRELL NEVAREZ and asked if any additional questions and then verbalized understanding. Patient advised to call surgeon office or pre surgery nurse liaison [phone] if any additional questions.
[2022-05-26] VITALS (8 sets, daily range): BP systolic 121–151; BP diastolic 62–79; PULSE 73–94; RESP 16–20; TEMP 36.1–36.4; O2SAT 93–99
--- NOTE | ~2022-05-26 | XR_ITS ---
Supine views of the abdomen Clinical history: Lithotripsy COMPARISON: 04/24/2022 Findings: Bowel gas pattern is nonspecific. No evidence for obstruction or free air. Multiple bilater al renal stones are similar to prior exam. Osseous structures are intact. Impression: Bilateral nephrolithiasis, similar to prior exam. Reviewed, dictated and finalized at [facility]. [employer] Impression: Bilateral nephrolithiasis, similar to prior exam.
--- NOTE | 2022-05-26 06:38 | WPDHPUPDATE1 ---
History and Physical Update Update Date/Time: 05/26/22 06:38 History and Physical has been reviewed, including an updated exam of the patient. There are NO changes in the patient's condition. Risks, benefits, and alternatives have been discussed and questions answered. Patient agrees to proceed with procedure.
[2022-05-26] MEDS: LACTATED RINGERS 1,000 ML 30 ML IV CONT (06:50)
--- NOTE | 2022-05-26 07:13 | WPDANESEPPF ---
Anes - Initial Pre Proc Eval Procedure: Operation Date: 05/26/22 07:30 Proposed Procedures p Right Extracorporeal Shock Wave Lithotripsy - Zane Woodard MD Date/Time: 05/26/22 07:13 Surgeon: Zane Woodard MD Pre Op Diagnosis: bilateral kidney stones Patient Data Age: 51 Gender: F Height: 1.61 m Weight: 100.3 kg Last Vital Signs Temp 36.4 C 05/26/22 07:09 Pulse 73 05/26/22 07:09 Resp 16 05/26/22 07:09 BP 121/62 05/26/22 07:09 Pulse Ox 96 05/26/22 07:09 O2 Del Method Room Air 05/26/22 07:09 Allergies Allergy/AdvReac Type Severity Reaction Status Date / Time aspirin Allergy Intermediate Rash Verified 05/26/22 06:50 azelastine Allergy Intermediate Itching Verified 05/26/22 06:50 ceftriaxone Allergy Intermediate Rash Verified 05/26/22 06:50 fluconazole Allergy Intermediate Rash Verified 05/26/22 06:50 Iodinated Contrast Media Allergy Intermediate Hives Verified 05/26/22 06:50 iodine Allergy Intermediate Hives Verified 05/26/22 06:50 ioversol Allergy Intermediate Hives Verified 05/26/22 06:50 meperidine Allergy Intermediate Rash Verified 05/26/22 06:50 nitrofurantoin Allergy Intermediate Rash Verified 05/26/22 06:50 silicone Allergy Intermediate Swelling Verified 05/26/22 06:50 Home Medications Medication Instructions Recorded Confirmed Type clonazepam 0.5 mg tablet 0.5 mg PO Q6H 01/17/19 05/26/22 History lamotrigine 200 mg tablet 200 mg PO BID 01/17/19 05/26/22 History lifitegrast 5 % eye drops in a 1 drop ophthalmic (eye) BID 01/17/19 05/16/22 History dropperette (Xiidra) melatonin 10 mg capsule 10 mg PO HS 01/17/19 05/16/22 History tamsulosin 0.4 mg capsule 0.4 mg PO DAILY 01/17/19 05/16/22 History trazodone 100 mg tablet 100 mg PO QHS 01/17/19 05/16/22 History trimethoprim 100 mg tablet 100 mg PO DAILY 01/17/19 05/16/22 History venlafaxine 75 mg tablet,extended 75 mg PO DAILY 01/17/19 05/16/22 History release 24 hr carboxymethyl 0.5 %-glycerin 1 1 drp EACH EYE BID 06/07/20 05/16/22 History %-polysorb 80 0.5 %-PF eye dropperette (Refresh Optive Luis-3 (PF)) prednisolone acetate 1 % eye 1 drp EACH EYE Q12H 06/07/20 05/16/22 History drops,suspension albuterol sulfate 2.5 mg/3 mL 2.5 mg (3 mL) inhalation Q4-6H PRN 01/24/21 05/16/22 Rx (0.083 %) solution for nebulization shortness of breath or wheezing #90 mL [id number] 2 cap PO QID PRN chronic 05/23/21 05/16/22 Rx 10,000-32,000-42,000 unit pancreatitis 1 month #240 caps capsule,delayed rel diclofenac sodium 1 % topical gel 2 g topical Q6-8H PRN Pain 06/06/21 05/16/22 History esomeprazole magnesium 40 mg 40 mg PO BID 06/06/21 05/16/22 History capsule,delayed release (Nexium) cariprazine 1.5 mg capsule 3 mg PO DAILY 07/17/21 05/16/22 History (Vraylar) docusate sodium 100 mg capsule 100 mg PO QAM 09/12/21 05/16/22 History (Colace) polyethylene glycol 3350 17 17 g PO QAM 09/12/21 05/16/22 History gram/dose oral powder (Miralax) acyclovir 800 mg tablet 800 mg PO BID shingles 12/01/21 05/26/22 History estradiol 0.025 mg/24 hr 1 patch transdermal 2XW 12/01/21 05/16/22 History semiweekly transdermal patch rimegepant 75 mg disintegrating 75 mg PO ONCE PRN Headache 12/01/21 05/16/22 History tablet (Nurtec ODT) dicyclomine 20 mg tablet See Rx Instructions .Route 12/22/21 05/16/22 Rx .COMPLEX #60 tabs fluticasone 500 mcg-salmeterol 50 See Rx Instructions .Route 01/23/22 05/16/22 Rx mcg/dose blistr powdr for .COMPLEX #60 ea inhalation (Advair Diskus) promethazine 12.5 mg tablet 12.5 mg PO Q6H PRN nausea and 01/23/22 05/16/22 Rx vomiting #90 tabs atogepant 60 mg tablet (Qulipta) 60 mg PO DAILY 02/20/22 05/16/22 History cholecalciferol (vitamin D3) 1,250 50,000 unit PO WEEKLY 02/20/22 05/16/22 History mcg (50,000 unit) capsule ondansetron HCl 8 mg tablet See Rx Instructions .Route 02/20/22 05/16/22 Rx .COMPLEX #90 tabs ezetimibe 10 mg tablet (Zetia) 10 m
[2022-05-26] MEDS: ONDANSETRON INJ 4 MG/2 ML VIAL IV PUSH ×2 (07:15→08:23)
[2022-05-26] MEDS: SCOPOLAMINE 1.5 MG PATCH TRANSDERM (07:15)
[2022-05-26 07:16] LABS: Glucose Point of Care 109 mg/dl (65-105)
[2022-05-26] MEDS: FAMOTIDINE 20 MG/2 ML VIAL IV PUSH (07:20)
[2022-05-26] MEDS: levoFLOXacin 500 MG/D5W 100 ML 500 MG/100 ML BAG 100 MG IVPB (07:28)
--- NOTE | 2022-05-26 08:01 | W.PM.PROC2 ---
Procedure Note - Detailed Date of Procedure 05/26/22 Pre-op Diagnosis Right kidney stones Post-op Diagnosis Same Procedure Performed Right ESWL Surgeon Zane Woodard MD Anesthesia General Description of Procedure The patient was brought to the operative suite where she was placed in the supine position on the Dornier lithotripsy table. The focal point of the lithotripter was placed at a cluster of small stones in right mid-pole. A total of 2500 shocks were delivered at a power setting of 4. There appeared to be good fragmentation of the stone. The patient tolerated the procedure well and was taken to the recovery room in good condition. Drains No Packing Yes Pathology Yes Condition Stable Disposition PACU
[2022-05-26] MEDS: fentaNYL CITRATE INJ (*CRX) 100 MCG/2 ML VIAL 25 MCG IV PUSH ×4 (08:26→08:40)
[2022-05-26] MEDS: oxyCODONE HCL (*CRX) 5 MG TAB IR PO (09:35)
== END 2022-05-26 10:06 | disposition home or self-care (01) ==
PROVIDERS: PCP Physician Assistant; Visit Provider Urology
PROC: (CPT 50590; principal; 2022-05-26 07:30)
DX: N20.0 Calculus of kidney (principal); E11.9 Type 2 diabetes mellitus without complications; E78.00 Pure hypercholesterolemia, unspecified; J45.909 Unspecified asthma, uncomplicated
CPT/HCPCS: 50590; 74018; 82948; A9270; J1100; J1956; J2250; J2405; J2704; J3010; J7120

== ENCOUNTER 2022-06-12 15:25 | Outpatient (CLI) | payer BC, MEDICAID, SELFPAY ==
--- NOTE | ~2022-06-12 | XR_ITS ---
Supine and upright views of the abdomen Clinical history: 2 weeks status post lithotripsy COMPARISON: 05/26/2022 Findings: Bowel gas pattern is nonspecific. No evidence for obstruction or free air. Small stone seen in the left kidney or possibly left renal pelvis region. There are also small right renal stones, po ssibly the right renal pelvis region. Osseous structures are intact. Impression: Multiple small bilateral renal stones, as detailed above. Distribution is similar to prior exam. Reviewed, dictated and finalized at location . Impression: Multiple small bilateral renal stones, as detailed above. Distribution is simil ar to prior exam.
[2022-06-12 16:35] LABS: Erythrocyte Sedimentation Rate 19 mm/hr (0-20)
== END 2022-06-12 15:26 | disposition home or self-care (01) ==
PROVIDERS: PCP Physician Assistant; Visit Provider Urology
DX: N20.0 Calculus of kidney (principal); R60.9 Edema, unspecified
CPT/HCPCS: 36415; 74018; 85652

== ENCOUNTER 2022-06-26 12:39 | Outpatient (CLI) | payer BC, MEDICAID, SELFPAY ==
--- NOTE | ~2022-06-26 | CT_ITS ---
CT scan of the Neck Technique: 2.5 mm axial scans were obtained through the neck after intravenous administration of 75 c c Omnipaque 350. Coronal and sagittal reconstructions of the neck were obtained. Dose reduction techn ique was used on this scan by utilizing automated exposure control and iterative reconstruction techn ique. The dose-length product (DLP) was 440.69 mGy-cm. Clinical History: Right cheek swelling Findings: There is no evidence of any significant cervical lymphadenopathy. Several small, nonenlarged jugulo- digastric and posterior cervical lymph nodes are noted bilaterally. Parapharyngeal spaces appear norm al bilaterally. The parotid and submandibular glands appear normal. The pharyngeal mucosal spaces appear normal. No soft tissue masses are seen in the neck. The thyroid gland appears normal. Images of the lung apices reveal no abnormalities. Impression: No significant abnormalities noted. Reviewed, dictated and finalized at [facility]. Impression: No significant abnormalities noted.
[2022-06-26 13:10] LABS: Estimated Glomerular Filt Rate > 60
== END 2022-06-26 12:40 | disposition home or self-care (01) ==
LOC: ANHIMG 12:43
PROVIDERS: PCP Physician Assistant; Visit Provider Physician Assistant
DX: R60.0 Localized edema (principal)
CPT/HCPCS: 70491; Q9967

== ENCOUNTER 2022-07-24 09:02 | Outpatient (CLI) | payer BC, MEDICAID, SELFPAY ==
[2022-07-24 09:51] LABS: Albumin Level 4.5 g/dL (3.5-5.1); Anion Gap 7 mmol/L (8-16); Blood Urea Nitrogen 10 mg/dL (7-17); Calcium 9.3 mg/dL (8.4-10.2); Carbon Dioxide 22 mmol/L (22-30); Chloride 110 mmol/L (98-107); Estimated Glomerular Filt Rate > 60; Glucose 95 mg/dL (65-110); Phosphorus 3.1 mg/dL (2.5-4.5); Potassium 4.1 mmol/L (3.4-5.0); Sodium 139 mmol/L (137-145)
[2022-07-24 10:02] LABS: Parathyroid Intact 97.9 pg/mL (7.5-53.5)
[2022-07-24 10:14] LABS: Vitamin D 25 Hydroxy 29.3 ng/mL
== END 2022-07-24 09:03 | disposition home or self-care (01) ==
PROVIDERS: PCP Physician Assistant; Referring Provider Podiatrist Foot & Ankle Surgery; Visit Provider Internal Medicine Endocrinology, Diabetes & Metabolism
DX: E55.9 Vitamin D deficiency, unspecified (principal); M85.80 Other specified disorders of bone density and structure, unspecified site; R79.89 Other specified abnormal findings of blood chemistry; B35.1 Tinea unguium
CPT/HCPCS: 36415; 80069; 82306; 83970

== ENCOUNTER 2022-07-31 09:31 | Outpatient (CLI) | payer BC, MEDICAID, SELFPAY ==
[2022-07-31 10:00] LABS: Alanine Aminotransferase 25 U/L (6-35); Aspartate Amino Transferase 30 U/L (14-36)
== END 2022-07-31 09:32 | disposition home or self-care (01) ==
LOC: ANHLAB 09:32
PROVIDERS: PCP Physician Assistant; Visit Provider Podiatrist Foot & Ankle Surgery
DX: B35.1 Tinea unguium (principal)
CPT/HCPCS: 36415; 84450; 84460

== ENCOUNTER 2022-08-07 08:07 | Outpatient (CLI) | payer BC, MEDICAID, SELFPAY ==
--- NOTE | ~2022-08-07 | US_ITS ---
US abdomen limited INDICATION: Right upper abdominal pain PROCEDURE: Realtime right upper abdominal ultrasound. COMPARISON: No prior studies for comparison. FINDINGS: The pancreas is normal without focal mass or pancreatic ductal dilation. Liver echotexture is increased, consistent with fatty infiltration. There is normal directional flow in the portal ve in. The gallbladder is normal without stones, gallbladder wall thickening or pericholecystic fluid. Comm on bile duct measures 3 mm. No sonographic Garcia's sign. IMPRESSION: 1: Hepatic steatosis. Reviewed, dictated and finalized at location B. IMPRESSION: 1: Hepatic steatosis.
== END 2022-08-07 08:08 | disposition home or self-care (01) ==
PROVIDERS: PCP Physician Assistant; Visit Provider Nurse Practitioner
DX: R10.9 Unspecified abdominal pain (principal); K76.0 Fatty (change of) liver, not elsewhere classified
CPT/HCPCS: 76705

== ENCOUNTER 2022-09-04 07:47 | Outpatient (CLI) | payer BC, MEDICAID, SELFPAY ==
--- NOTE | ~2022-09-04 | DEXA_ITS ---
Bone Density Report Name: FREDDY NEVAREZ Age: 52 Sex: Female Ethnicity: White Date of : 1970 Indication: osteopenia; hyperparathyroidism; history of glucocorticoids; prior fracture; anorexia or bulimia; seizure disorder; asthma or emphysema; hysterectomy; postmenopausal Referring Provider: JOSE KENNEDY Study: Bone densitometry was performed. Exam Date: September 04, 2022 Accession number: [id number] Bone Density: Region BMD T-score Z-score Classification AP Spine(L1-L4) 1.013 -0.3 0.6 Normal Femoral Neck (Left) 0.649 -1.8 -0.9 Osteopenia Total Hip (Left) 0.947 0.0 0.6 Normal Femoral Neck (Right) 0.737 -1.0 -0.1 Normal Total Hip (Right) 0.830 -0.9 -0.4 Normal Total Hip Mean 0.888 -0.5 0.1 Normal World Health Organization criteria for BMD impression classify patients as: Normal (T-score at or above -1.0), Osteopenia (T-score between -1.0 and -2.5), or Osteoporosis (T-score at or below -2.5). 10-year Fracture Risk(1): Major Osteoporotic Fracture 15% Hip Fracture 1.8% Reported Risk Factors: [place] (), Neck BMD=0.649, BMI=38.9, previous fracture, glucocorticoids (1) FRAX(R) Version 3.08. Fracture probability calculated for an untreated patient. Fracture probability may be lower if the patient has received treatment. Previous Exams: Region Exam Age BMD T-score BMD Change BMD Change Date g/cm2 vs Baseline vs Previous AP Spine (L1-L4) 09/04/2022 52 1.013 -0.3 -0.016 (-1.6%) -0.026 (-2.5%) 08/23/2020 50 1.039 -0.1 0.010 (1.0%) 0.010 (1.0%) 08/05/2018 48 1.029 -0.2 Total Hip(Left) 09/04/2022 52 0.947 0.0 0.136 (16.8%)* 0.097 (11.4%)* 08/23/2020 50 0.850 -0.8 0.039 (4.8%)* 0.039 (4.8%)* 08/05/2018 48 0.811 -1.1 Total Hip(Right) 09/04/2022 52 0.830 -0.9 0.068 (9.0%)* 0.072 (9.5%)* 08/23/2020 50 0.758 -1.5 -0.004 (-0.5%) -0.004 (-0.5%) 08/05/2018 48 0.761 -1.5 *Denotes significance at 95% confidence level, LSC for AP Spine = 0.022 g/cm2, LSC for Total Hip = 0.027 g/cm2 Clinical Information Provided by Patient: Has had a low trauma fracture Has taken Glucocorticoids Has used the following medications: Vitamin D, Calcium Has the following medical conditions: Anorexia or Bulimia, Any Seizure Disorders, Asthma or Emphysema, Hyperparathyroidism, Hysterectomy Patient maximum height was 64 Menopause Age: 41 Drinks caffeinated beverages Onset of menses at age 12 Number of children 0
== END 2022-09-04 07:48 | disposition home or self-care (01) ==
LOC: ANHIMG 07:48
PROVIDERS: PCP Physician Assistant; Visit Provider Internal Medicine Endocrinology, Diabetes & Metabolism
DX: M85.852 Other specified disorders of bone density and structure, left thigh (principal); E55.9 Vitamin D deficiency, unspecified; R79.89 Other specified abnormal findings of blood chemistry
CPT/HCPCS: 77080

== ENCOUNTER 2022-09-14 16:45 | Outpatient (CLI) | payer BC, MEDICAID, SELFPAY ==
--- NOTE | ~2022-09-14 | XR_ITS ---
EXAMINATION: XR chest 2V Exam Date/Time: 09/14/2022 17:00 CDT HISTORY: R05.9 - Cough, unspecified Comparison: 11/17/2021. RESULT: Lines, tubes, and devices: Cholecystectomy clips. Lungs and pleura: Clear. Cardiomediastinal silhouette: Stable. Other: No acute osseous or upper abdominal finding. Colonic interposition. IMPRESSION: No acute cardiopulmonary process. Reviewed, dictated and finalized at location K.
[2022-09-14 17:35] LABS: Influenza A QL RT-PCR Negative (Negative); Influenza B QL RT-PCR Negative (Negative); RSV RNA, RT-PCR Negative (Negative); SARS-CoV-2 RNA PCR Negative (Negative)
== END 2022-09-14 16:46 | disposition home or self-care (01) ==
LOC: ANHLAB 16:48
PROVIDERS: PCP Physician Assistant; Referring Provider Nurse Practitioner Family; Visit Provider Physician Assistant
DX: R05.9 Cough, unspecified (principal); Z20.822 Contact with and (suspected) exposure to COVID-19
CPT/HCPCS: 71046; 87637

== ENCOUNTER 2022-10-13 16:38 | Outpatient (CLI) | payer BC, MEDICAID, SELFPAY ==
--- NOTE | ~2022-10-13 | XR_ITS ---
XR abdomen/kub 1V 10/13/2022 17:02 Indication: Bilateral kidney stones Procedure: KUB Comparison: 06/12/2022 and 05/26/2022 Findings: There are persistent bilateral renal stones which are partially obscured by bowel content. Nonobstructive bowel gas pattern. Moderate colonic fecal loading. No definite calcifications in the e xpected course of the ureters. There are pelvic phleboliths. Impression: 1: Bilateral nephrolithiasis. Reviewed, dictated and finalized at location A. Impression: 1: Bilateral nephrolithiasis.
== END 2022-10-13 16:39 | disposition home or self-care (01) ==
LOC: ANHIMG 16:41
PROVIDERS: PCP Physician Assistant; Visit Provider Urology
DX: N20.0 Calculus of kidney (principal)
CPT/HCPCS: 74018

== ENCOUNTER 2022-10-23 10:19 | Outpatient (CLI) | payer BC, MEDICAID, SELFPAY ==
[2022-10-23 11:03] LABS: Alanine Aminotransferase 18 U/L (6-35); Aspartate Amino Transferase 27 U/L (14-36)
== END 2022-10-23 10:20 | disposition home or self-care (01) ==
LOC: ANHLAB 10:20
PROVIDERS: PCP Physician Assistant; Visit Provider Podiatrist Foot & Ankle Surgery
DX: B35.1 Tinea unguium (principal)
CPT/HCPCS: 36415; 84450; 84460

== ENCOUNTER 2022-12-18 10:48 | Outpatient (CLI) | payer BC, MEDICAID, SELFPAY ==
--- NOTE | ~2022-12-18 | XR_ITS ---
Supine and upright views of the abdomen Clinical history: Bilateral kidney stones COMPARISON: 10/05/2022 Findings: Bowel gas pattern is nonspecific. No evidence for obstruction or free air. Bilateral renal stones are essentially unchanged from prior exam, more numerous and larger than right, as compared to the left side. Cholecystectomy clips are noted. Osseous structures are intact. Impression: Bilateral nephrolithiasis, unchanged. Reviewed, dictated and finalized at location . Impression: Bilateral nephrolithiasis, unchanged.
== END 2022-12-18 10:49 | disposition home or self-care (01) ==
PROVIDERS: PCP Physician Assistant; Visit Provider Urology
DX: N20.0 Calculus of kidney (principal)
CPT/HCPCS: 74018

== ENCOUNTER 2023-01-01 15:34 | Outpatient (CLI) | payer BC, MEDICAID, SELFPAY ==
--- NOTE | ~2023-01-01 | CT_ITS ---
EXAMINATION: CT abdomen pelvis wo con DATE: 01/01/2023 15:50 INDICATION: Bilateral kidney stones TECHNIQUE: Computed tomography (CT) of the abdomen and pelvis was performed without intravenous contr ast. Automated exposure control and iterative reconstruction technique were employed. Exam dose: 889 .68 mGy-cm total exam DLP. COMPARISON: 12/18/2022 KUB 04/07/2022 CT abdomen pelvis FINDINGS: There is chronic discoid scarring in both lobes. No consolidation at the lung bases. Cardiomegaly. No pericardial or pleural effusion. Status post cholecystectomy; this likely accounts for pneumobilia. No hepatic space-occupying mass lesion or bile duct dilatation is detected. No pancreatic mass lesion, calcification or pancreatic duct dilatation is evident. Normal splenic size. Normal morphology of the adrenal glands. Approximately 1 cm anterior upper pole left renal cyst. There are multiple nonobstructing bilateral renal calculi. No ureteral calculus or hydroureteronephro sis is detected. Normal caliber of the abdominal aorta. No intraperitoneal or retroperitoneal or pelvic mass lesion or adenopathy or ascites. The urinary bladder is unremarkable. Status post hysterectomy. Minimal colonic diverticulosis; no CT evidence of diverticulitis. No bowel obstruction, bowel wall th ickening, pneumatosis or intraperitoneal free air is detected. Small fat-containing umbilical hernia. No suspicious osteolytic or osteoblastic lesions IMPRESSION: Bilateral nephrolithiasis; no ureteral calculus or hydroureteronephrosis Pneumobilia, likely secondary to cholecystectomy Cardiomegaly 1 cm left renal cyst Mild colonic diverticulosis; no evidence of diverticulitis Status post hysterectomy Reviewed, dictated and finalized at Location A. Reviewed, dictated and finalized at location B. IMPRESSION: Bilateral nephrolithiasis; no ureteral calculus or hydroureteronep hrosis Pneumobilia, likely secondary to cholecystectomy Cardiomegaly 1 cm left renal cyst Mild colonic diverticulosis; no evidence of diverticulitis Status post hysterectomy
== END 2023-01-01 15:35 | disposition home or self-care (01) ==
LOC: ANHIMG 15:36
PROVIDERS: PCP Physician Assistant; Visit Provider Urology
DX: N20.0 Calculus of kidney (principal); I51.7 Cardiomegaly; K57.90 Diverticulosis of intestine, part unspecified, without perforation or abscess without bleeding; Z90.710 Acquired absence of both cervix and uterus
CPT/HCPCS: 74176

== ENCOUNTER 2023-01-03 15:11 | Emergency (ER) | payer BC, MEDICAID, SELFPAY ==
[2023-01-03] VITALS (10 sets, daily range): BP systolic 134–148; BP diastolic 81–92; PULSE 94–104; RESP 14–20; O2SAT 93–100
--- NOTE | ~2023-01-03 | CT_ITS ---
EXAMINATION: CT abdomen pelvis wo con DATE: 01/03/2023 19:09 INDICATION: Right flank pain. TECHNIQUE: Computed tomography (CT) of the abdomen and pelvis was performed without intravenous contr ast. Automated exposure control and iterative reconstruction technique were employed. The dose-length product was 969.96 mGy-cm. COMPARISON: CT abdomen and pelvis 01/01/2023 FINDINGS: The visualized portions of the lung bases demonstrate mild atelectasis. There is mild bronc hiectasis bilaterally. No pleural effusion. The heart size is normal. There is a trace pericardial ef fusion. There is diffuse hepatic steatosis. Pneumobilia is noted, likely secondary to sphincterotomy. There are changes of cholecystectomy. The pancreas, spleen, and adrenal glands are normal. There are least 2 stones in right kidney measuring up to 16 mm. There are 5 stones in left kidney measuring up to 3 mm. There is a 9 mm cyst in left kidney. There are supraumbilical and umbilical hernias contain ing fat. There are no dilated loops of bowel. The appendix is not visualized. There are no pathologic ally enlarged lymph nodes. There is no free intraperitoneal fluid. There is mild thoracic and lumbar spondylosis. IMPRESSION: 1. Bilateral nonobstructing kidney stones. 2. Supraumbilical and umbilical ventral hernias containing fat. 3. Diffuse hepatic steatosis. Reviewed, dictated and finalized at location E.
[2023-01-03 16:56] LABS: Appearance Urine Cloudy (Clear); Bacteria Urine 4+ /hpf; Bilirubin Urine Negative (Negative); Blood Urine Negative (Negative); Color Urine Yellow (Yellow); Glucose Urine UA Negative (Negative); Ketones Urine Negative (Negative); Leukocyte Esterase Ur 2+ LEU/UL (Negative); Nitrate Urine Negative (Negative); Non Pathogenic Casts 0-2; Protein Urine Negative (Negative); RBC Urine 0-2 /hpf (0-2); Specific Grav Ur 1.014 (1.001-1.035); Squamous Epithelial Cell Urine Moderate /hpf (Few); Urobilinogen Urine 0.2 mg/dL (<2.0); WBC Urine 21-50 /hpf
[2023-01-03 16:58] LABS: Add Urine Microscopic? YES
--- NOTE | 2023-01-03 18:56 | ED.GENADULT ---
HPI - General Adult General Chief complaint: Unspecified Stated complaint: back pain/fever/nausea Time Seen by Provider: 01/03/23 18:07 History of Present Illness HPI narrative: Patient is a 52-year-old female with a history of bipolar disorder, gastroparesis, diabetes presenting with flank pain. States that she has had lower abdominal pain for about the last week. She had a CT scan on Sunday which was ordered by her urologist. States that unfortunately her pain has worsened especially on the right. States that she feels like she has had decreased urinary output. Also has had worsening nausea with several episodes of emesis. No chest pain, shortness of breath, cough, fevers or chills, headache, numbness or weakness, leg swelling. Related Data Home Medications Medication Instructions Recorded Confirmed clonazepam 0.5 mg tablet 0.5 mg PO Q6H 01/17/19 09/04/22 lamotrigine 200 mg tablet 200 mg PO BID 01/17/19 09/04/22 lifitegrast 5 % eye drops in a 1 drop ophthalmic (eye) BID 01/17/19 09/04/22 dropperette (Xiidra) melatonin 10 mg capsule 10 mg PO HS 01/17/19 09/04/22 tamsulosin 0.4 mg capsule 0.4 mg PO DAILY 01/17/19 09/04/22 trazodone 100 mg tablet 100 mg PO QHS 01/17/19 09/04/22 trimethoprim 100 mg tablet 100 mg PO DAILY 01/17/19 09/04/22 carboxymethyl 0.5 %-glycerin 1 1 drp EACH EYE BID 06/07/20 09/04/22 %-polysorb 80 0.5 %-PF eye dropperette (Refresh Optive Luis-3 (PF)) prednisolone acetate 1 % eye 1 drp EACH EYE Q12H 06/07/20 09/04/22 drops,suspension diclofenac sodium 1 % topical gel 2 g topical Q6-8H PRN Pain 06/06/21 09/04/22 cariprazine 1.5 mg capsule 3 mg PO DAILY 07/17/21 09/04/22 (Vraylar) docusate sodium 100 mg capsule 100 mg PO QAM 09/12/21 09/04/22 (Colace) polyethylene glycol 3350 17 17 g PO QAM 09/12/21 09/04/22 gram/dose oral powder (Miralax) acyclovir 800 mg tablet 800 mg PO BID shingles 12/01/21 09/04/22 rimegepant 75 mg disintegrating 75 mg PO ONCE PRN Headache 12/01/21 09/04/22 tablet (Nurtec ODT) atogepant 60 mg tablet (Qulipta) 60 mg PO DAILY 02/20/22 09/04/22 lactase 3,000 unit tablet (Lactaid) 3,000 unit PO ONCE PRN Lactose 03/21/22 09/04/22 Intolerance albuterol sulfate 90 mcg/actuation See Rx Instructions .Route 04/07/22 09/04/22 aerosol inhaler .COMPLEX PRN Abdominal Pain conjugated estrogens 1.25 mg 1.25 mg PO DAILY 07/31/22 09/04/22 tablet (Premarin) famotidine 20 mg chewable tablet 20 mg PO 08/21/22 09/04/22 sertraline 100 mg tablet 100 mg PO 08/21/22 09/04/22 terbinafine HCl 250 mg tablet 250 mg PO 08/21/22 09/04/22 venlafaxine 75 mg capsule,extended 75 mg PO 08/21/22 09/04/22 release 24 hr Allergies Allergy/AdvReac Type Severity Reaction Status Date / Time aspirin Allergy Intermediate Rash Verified 12/25/22 13:39 azelastine Allergy Intermediate Itching Verified 12/25/22 13:39 ceftriaxone Allergy Intermediate Rash Verified 12/25/22 13:39 fluconazole Allergy Intermediate Rash Verified 12/25/22 13:39 Iodinated Contrast Media Allergy Intermediate Hives Verified 12/25/22 13:39 iodine Allergy Intermediate Hives Verified 12/25/22 13:39 ioversol Allergy Intermediate Hives Verified 12/25/22 13:39 meperidine Allergy Intermediate Rash Verified 12/25/22 13:39 nitrofurantoin Allergy Intermediate Rash Verified 12/25/22 13:39 silicone Allergy Intermediate Swelling Verified 12/25/22 13:39 Review of Systems Review of Systems: All systems reviewed & are unremarkable except as noted in HPI and below PMFSH Past Medical History Medical History Abnormal uterine bleeding Adrenal insufficiency CAIT positive Ankle fracture Lt. Anorexia with bulimia Anxiety Arthritis Asthma B12 deficiency Back pain Bilateral kidney stones Bipolar 1 disorder Blind in both eyes Bowel obstruction Chondromalacia of knee Chronic left shoulder pain Chronic nausea Chronic pancreatitis Chronic UTI Colitis Colon polyp Constipation De
[2023-01-03 19:34] LABS: Basophils Absolute Auto 0.1 K/mm3 (0.0-0.1); Basophils Percent Auto 0.4 % (0.2-1.2); Eosinophils Absolute Auto 0.3 K/mm3 (0-0.3); Eosinophils Percent Auto 2.1 % (0-4.4); Hematocrit 43.4 % (37.0-47.0); Hemoglobin 13.5 g/dL (12.0-15.0); Immature Granulocyte Absolute 0.19 K/mm3 (0.00-0.031); Immature Granulocyte Percent A 1.4 % (0-0.5); Lymphocytes Absolute Auto 1.81 K/mm3 (0.9-3.2); Mean Corpuscular HGB Conc 31.1 g/dl (32-36); Mean Corpuscular Hemoglobin 26.6 pg (26-34); Mean Corpuscular Volume 85.6 fl (80-100); Mean Platelet Volume 9.2 fl (7.4-10.4); Monocytes Percent Auto 7.3 % (2.6-8.5); Neutrophils Absolute Auto 10.6 K/mm3 (1.3-6.7); Neutrophils Percent Auto 75.8 % (45.5-73.1); Platelet Count Result 386 k/mm3 (150-375); Red Blood Count 5.07 M/mm3 (4.2-5.4); Red Cell Distribution Width 15.7 % (11.5-14.5); White Blood Count 13.9 K/mm3 (4.5-10.0)
[2023-01-03 19:44] LABS: Alanine Aminotransferase 24 U/L (6-35); Albumin Level 4.4 g/dL (3.5-5.1); Alkaline Phosphatase 110 U/L (38-126); Anion Gap 10 mmol/L (8-16); Aspartate Amino Transferase 29 U/L (14-36); Bilirubin,Total 0.4 mg/dL (0.2-1.3); Blood Urea Nitrogen 10 mg/dL (7-17); Calcium 9.2 mg/dL (8.4-10.2); Carbon Dioxide 19 mmol/L (22-30); Chloride 108 mmol/L (98-107); Estimated CRCL calculation 108 ml/min; Estimated Glomerular Filt Rate > 60; Glucose 97 mg/dL (65-110); Lipase 107 U/L (23-300); Potassium 4.1 mmol/L (3.4-5.0); Sodium 137 mmol/L (137-145)
[2023-01-03] MEDS: HYDROmorphone HCL INJ (*CRX) 1 MG/ML SYR 0.5 MG IV PUSH (20:03)
[2023-01-03] MEDS: ONDANSETRON INJ 4 MG/2 ML VIAL IV PUSH (20:04)
[2023-01-03] MEDS: SODIUM CHLORIDE 0.9% IV 1,000 ML 999 ML IV CONT (20:05)
[2023-01-03] MEDS: SULFAMETHOXAZOLE/TRIMETHOPRIM 800/160 MG DS TABLET 1 TAB PO (20:50)
[2023-01-03] MEDS: HYDROcodone/acetaminophen (*CRX) 5-325 MG TABLET 1 TAB PO (21:36)
== END 2023-01-03 21:40 | disposition home or self-care (01) ==
PROVIDERS: Emergency Medicine; Emergency Provider Emergency Medicine; PCP Physician Assistant
DX: N39.0 Urinary tract infection, site not specified (principal); N20.0 Calculus of kidney; R11.0 Nausea; E78.5 Hyperlipidemia, unspecified; E11.9 Type 2 diabetes mellitus without complications; Z87.891 Personal history of nicotine dependence
CPT/HCPCS: 36415; 74176; 80053; 81001; 83690; 85025; 87086; 87088; 96361; 96374; 96375; 99284; A9270; J1170; J2405; J7030

== ENCOUNTER 2023-01-15 07:54 | Outpatient (CLI) | payer BC, MEDICAID, SELFPAY ==
--- NOTE | ~2023-01-15 | MM_ITS ---
EXAMINATION: MM screening melani BI w donna HISTORY: Screening mammogram TECHNIQUE: Craniocaudal and mediolateral oblique 3-D tomosynthesis images were obtained and synthetic 2-D images were generated. CAD analysis was submitted and interpreted. COMPARISON: 01/09/2022, 08/23/2020, 03/10/2019 BREAST PARENCHYMAL COMPOSITION: There are scattered areas of fibroglandular density. FINDINGS: Scattered benign-appearing calcifications are present. No suspicious mass, calcification, o r architectural distortion are identified in either breast to suggest malignancy. There has been no s uspicious interval change. IMPRESSION: 1. No mammographic evidence of malignancy. 2. Recommend routine screening mammography in one year. BI-RADS Category 2: Benign finding(s). Reviewed, dictated and finalized at location A.
== END 2023-01-15 07:55 | disposition home or self-care (01) ==
LOC: ANHIMG 07:56
PROVIDERS: PCP Physician Assistant; Visit Provider Obstetrics & Gynecology
DX: Z12.31 Encounter for screening mammogram for malignant neoplasm of breast (principal)
CPT/HCPCS: 77063; 77067

== ENCOUNTER 2023-01-16 12:55 | Outpatient (CLI) | payer BC, MEDICAID, SELFPAY ==
--- NOTE | 2023-01-16 13:57 | ECG_ITS ---
Measurements Intervals [place] Rate: 93 P: 52 SD: 171 QRS: 9 QRSD: 83 T: 0 QT: 342 QTc: 426 Interpretive Statements SINUS RHYTHM BORDERLINE T WAVE ABNORMALITY- INFERIOR LEADS BASELINE ARTIFACT- I, II, III, AVR, AVL, AVF, V3-V6 BORDERLINE ECG COMPARED TO ECG 11/17/2021 17:17:59 NO SIGNIFICANT CHANGES Electronically Signed On 01-17-2023 6:41:44 CDT by Adi Patel D.O.
[2023-01-16 14:43] LABS: INR 0.9; Prothrombin Time 12.7 Seconds (11.1-14.7)
[2023-01-16 14:44] LABS: Partial Thromboplastin Time 26.6 SECONDS (22.3-36.8)
== END 2023-01-16 12:56 | disposition home or self-care (01) ==
PROVIDERS: PCP Physician Assistant; Visit Provider Urology
DX: Z01.818 Encounter for other preprocedural examination (principal); N20.0 Calculus of kidney; E78.5 Hyperlipidemia, unspecified
CPT/HCPCS: 36415; 85610; 85730; 87086; 87088; 93005

== ENCOUNTER 2023-01-19 05:36 | Day surgery (SDC) | payer BC, MEDICAID, SELFPAY ==
[2023-01-16 08:22] VITALS: BMI 40.7
--- NOTE | 2023-01-16 08:27 | PC.NURSE ---
Report to the Outpatient Waiting Room, entrance under the green pavilion located off [facility], at time 8:30 on date 01/19/23. Planned Procedure Time: 10:30. Time changes happen often and if your time is changed the preop area will call you the afternoon before. - You and your visitor will be asked to self-screen and do not enter if you have any COVID symptoms. - A mask is optional within the hospital at this time. Patients may have clear liquids (water, carbonated beverages, clear teas, apple juice) until 3 hours prior to surgery with a maximum of 20 ounces. - No food from midnight until time of surgery Take the following medications with a SIP of water the morning of surgery: INHALERS, EYE DROPS, ACYCLOVIR, CLONAZEPAM, FLUDROCORTISONE, LAMOTRIGINE, METOCLOPRAMIDE, SERTRALINE, TRIMETHOPRIM, VENLAFAXINE, VRAYLAR, TRAMADOL IF NEEDED DO NOT STOP ANY OF YOUR OTHER PRESCRIPTION MEDICATIONS PRIOR TO SURGERY ?EXCEPT THE FOLLOWING Medications to discontinue per physician: VITAMINS/SUPPLEMENTS Date to take last dose: NO MORE UNTIL AFTER SURGERY Please no make-up, nail khmer, hairspray, perfume, deodorant, or body powder the day of surgery. No jewelry (including any body piercings) or valuables the day of surgery, leave them at home. Please take a shower or bath the night before, or the morning of, surgery with an antibacterial soap. Wear comfortable, loose fitting clothing. - Jewelry must be removed prior to entering the operating room. Rings and piercings that are not removed may be cut off. - The hospital will not accept responsibility for valuables. - Please leave all valuables, including medications, at home the day of surgery. If you are going home after surgery, a licensed special client bus driver must drive you home. - NO public transportation without another adult if you receive anesthesia. - We recommend that an adult stay with you for 24 hours following discharge. - We also recommend that you do not drive, make important decision, drink alcoholic beverages, or take any drugs that were not prescribed by your health care provider for at least 24 hours after your discharge time. Follow any additional instructions given to you from your surgeon. If you or anyone in your household have experienced Covid symptoms in the past week, please notify your surgeon or the nurse liaison at the phone number below for possible testing. Telephone instructions given to TYRELL NEVAREZ and asked if any additional questions and then verbalized understanding. Patient advised to call surgeon office or pre surgery nurse liaison [phone] if any additional questions.
--- NOTE | 2023-01-16 17:42 | PM.HPGS ---
History of Present Illness History of Present Illness Consent: Risks, benefits, and alternatives have been discussed and questions answered. Patient agrees to proceed with procedure. Chief complaint: right kidney stone Narrative: Joy Oliveira is a 52 year old female was a known recurrent, frequent stone former. She has recently been having significant right flank pain. CT imaging shows nonobstructing bilateral renal stones. Since there is no other etiology for her pain she has elected to proceed with right ESWL. She is aware the risk including, but not limited to, persistent pain, need for additional procedures, perinephric hematoma. Review of Systems Review of Systems: All systems reviewed & are unremarkable except as noted in HPI and below PMFSH Past Medical History Medical History Abnormal uterine bleeding Adrenal insufficiency CAIT positive Ankle fracture Lt. 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 Dizziness Dysphagia Endometriosis s/p total hysterectomy Feeding by G-tube Refeeding via G-tube, removed 2014 Fibroids Gastroparesis Generalized OA GERD (gastroesophageal reflux disease) Heart murmur Herpes zoster High serum parathyroid hormone (PTH) History of angina History of esophageal dilatation History of rectal polyps Hx of corneal abrasion Hx of hiatal hernia Hyperlipidemia Hypotension, chronic IBS (irritable bowel syndrome) Inflammatory arthritis Keratitis Kidney stones Left foot pain Left knee DJD Legal blindness Low vitamin D level Medial meniscus tear Nausea Osteoporosis Other fatigue Patellofemoral chondrosis Patellofemoral pain syndrome Popliteal cyst Right knee DJD Seizures Last seizure 2017 Stomach ulcer w/GIB Stress fracture Synovial cyst of popliteal space [Yuan], left knee Tendinitis of left rotator cuff Type 2 diabetes mellitus without complications Diet-controlled, previously on metformin Upper abdominal pain Vertigo Vitamin D deficiency Zoster ophthalmicus Surgical History Surgical History H/O left wrist surgery carpal tunnel History of ankle surgery Lt. History of appendectomy History of cholecystectomy History of hysterectomy Total hysterectomy History of lithotripsy History of oophorectomy MICHA. History of tonsillectomy Hx of cardiac cath x2. No cardiac stents Family History Family History Sibling Family history of migraine headaches Mother Family history of cardiovascular disease Family history of hypercholesterolemia Hypertension Father Family history of primary malignant neoplasm of liver Family history of liver disease Family history of alcoholism Other Family history of cerebrovascular accident (CVA) Social History Social History Smoking packs per day: 0.5 Smoking cigarettes per day: 10.0 Years smoked: 4 Smoking pack-years: 2.00 Smoking status: Former smoker Tobacco type: cigarettes Second hand tobacco smoke exposure: No Smoking end date: 03/19/93 Alcohol intake: never Substance use: never Substance use type: does not use Lack of Transportation: No Lack of Food: Never True Current Housing: I Have Housing Concerned About Future Housing: No Difficulty Paying Gas/Electric Bills: No Difficulty Paying for Meds: No Currently Unemployed: No Education: Decline
[2023-01-19] VITALS (8 sets, daily range): BP systolic 129–144; BP diastolic 64–84; PULSE 89–105; RESP 14–20; TEMP 36.4–36.6; O2SAT 94–100
--- NOTE | ~2023-01-19 | XR_ITS ---
EXAMINATION: XR abdomen/kub 1V DATE: 01/19/2023 07:38 INDICATION: Kidney stone. TECHNIQUE: A supine view of the abdomen on 2 radiographs was obtained. COMPARISON: Abdomen radiographs 12/18/2022, CT abdomen and pelvis 01/03/2023 FINDINGS: There are no dilated loops of bowel. There are phleboliths in left pelvis. There are greate r than 20 stones in right kidney measuring up to 4 mm. There are approximately 6 stones in left kidne y measuring up to 3 mm. Surgical clips in the right upper quadrant are likely from cholecystectomy. IMPRESSION: 1. Bilateral kidney stones. Reviewed, dictated and finalized at location E. IMPRESSION: 1. Bilateral kidney stones.
--- NOTE | 2023-01-19 06:46 | WPDHPUPDATE1 ---
History and Physical Update Update Date/Time: 01/19/23 06:46 History and Physical has been reviewed, including an updated exam of the patient. There are NO changes in the patient's condition. Risks, benefits, and alternatives have been discussed and questions answered. Patient agrees to proceed with procedure.
--- NOTE | 2023-01-19 08:30 | WPDANESEPPF ---
Anes - Initial Pre Proc Eval Procedure: Operation Date: 01/19/23 10:30 Proposed Procedures p Right Extracorporeal Shock Wave Lithotripsy - Zane Woodard MD Date/Time: 01/19/23 08:30 Surgeon: Zane Woodard MD Pre Op Diagnosis: right kidney stone Patient Data Age: 52 Gender: F Height: 1.6 m Weight: 104.35 kg Allergies Allergy/AdvReac Type Severity Reaction Status Date / Time aspirin Allergy Intermediate Rash Verified 01/16/23 12:58 azelastine Allergy Intermediate Itching Verified 01/16/23 12:58 ceftriaxone Allergy Intermediate Rash Verified 01/16/23 12:58 fluconazole Allergy Intermediate Rash Verified 01/16/23 12:58 Iodinated Contrast Media Allergy Intermediate Hives Verified 01/16/23 12:58 iodine Allergy Intermediate Hives Verified 01/16/23 12:58 ioversol Allergy Intermediate Hives Verified 01/16/23 12:58 meperidine Allergy Intermediate Rash Verified 01/16/23 12:58 nitrofurantoin Allergy Intermediate Rash Verified 01/16/23 12:58 silicone Allergy Intermediate Swelling Verified 01/16/23 12:58 Sulfa (Sulfonamide Allergy Rash Verified 01/16/23 12:58 Antibiotics) Home Medications Medication Instructions Recorded Confirmed Type clonazepam 0.5 mg tablet 0.5 mg PO Q6H 01/17/19 01/16/23 History lamotrigine 200 mg tablet 200 mg PO BID 01/17/19 01/16/23 History lifitegrast 5 % eye drops in a 1 drop ophthalmic (eye) BID 01/17/19 01/16/23 History dropperette (Xiidra) melatonin 10 mg capsule 10 mg PO HS 01/17/19 01/16/23 History tamsulosin 0.4 mg capsule 0.4 mg PO DAILY 01/17/19 01/16/23 History trazodone 100 mg tablet 100 mg PO QHS 01/17/19 01/16/23 History trimethoprim 100 mg tablet 100 mg PO DAILY 01/17/19 01/16/23 History carboxymethyl 0.5 %-glycerin 1 1 drp EACH EYE BID 06/07/20 01/16/23 History %-polysorb 80 0.5 %-PF eye dropperette (Refresh Optive Luis-3 (PF)) diclofenac sodium 1 % topical gel 2 g topical Q6-8H PRN Pain 06/06/21 01/16/23 History cariprazine 1.5 mg capsule 3 mg PO DAILY 07/17/21 01/16/23 History (Vraylar) docusate sodium 100 mg capsule 100 mg PO QAM 09/12/21 01/16/23 History (Colace) polyethylene glycol 3350 17 17 g PO QAM 09/12/21 01/16/23 History gram/dose oral powder (Miralax) acyclovir 800 mg tablet 800 mg PO BID shingles 12/01/21 01/16/23 History rimegepant 75 mg disintegrating 75 mg PO ONCE PRN Headache 12/01/21 01/16/23 History tablet (Nurtec ODT) dicyclomine 20 mg tablet See Rx Instructions .Route 12/22/21 01/16/23 Rx .COMPLEX #60 tabs lactase 3,000 unit tablet (Lactaid) 3,000 unit PO ONCE PRN Lactose 03/21/22 01/16/23 History Intolerance albuterol sulfate 90 mcg/actuation See Rx Instructions .Route 04/07/22 01/16/23 History aerosol inhaler .COMPLEX PRN Abdominal Pain zgvtjy-ehftkljj-cgbdvny 2 cap PO QID PRN chronic 07/12/22 01/16/23 Rx 10,000-32,000-42,000 unit pancreatitis 1 month #240 caps capsule,delayed rel conjugated estrogens 1.25 mg 1.25 mg PO DAILY 07/31/22 01/16/23 History tablet (Premarin) albuterol sulfate 2.5 mg/3 mL 2.5 mg (3 mL) inhalation Q4-6H PRN 08/21/22 01/16/23 Rx (0.083 %) solution for nebulization shortness of breath or wheezing #90 mL famotidine 20 mg chewable tablet 20 mg PO BID 08/21/22 01/16/23 History rosuvastatin 40 mg tablet (Crestor) 40 mg PO DAILY #30 tabs 08/21/22 01/16/23 Rx sertraline 100 mg tablet 100 mg PO DAILY 08/21/22 01/16/23 History terbinafine HCl 250 mg tablet 250 mg PO DAILY 08/21/22 01/16/23 History venlafaxine 75 mg capsule,extended 75 mg PO DAILY 08/21/22 01/16/23 History release 24 hr ezetimibe 10 mg tablet (Zetia) 10 mg PO DAILY #30 tabs 08/28/22 01/16/23 Rx calcitriol 0.25 mcg capsule See Rx Instructions .Route 09/04/22 01/16/23 Rx .COMPLEX #13 caps plecanatide 3 mg tablet (Trulance) See Rx Instructions .Route 09/11/22 01/16/23 Rx .COMPLEX #90 tabs benzonatate 200 mg capsule 200 mg PO TID PRN cough #60 caps 09/14/22 01/16/23 Rx fluticasone 500 mcg-salmeterol 50 1 i
[2023-01-19 08:34] LABS: Glucose Point of Care 97 mg/dl (65-105)
[2023-01-19] MEDS: SCOPOLAMINE 1.5 MG PATCH TRANSDERM (08:55)
[2023-01-19] MEDS: LACTATED RINGERS 1,000 ML 30 ML IV CONT (08:55)
[2023-01-19] MEDS: levoFLOXacin 500 MG/D5W 100 ML 500 MG/100 ML BAG 100 MG IVPB (09:24)
--- NOTE | 2023-01-19 09:58 | W.PM.PROC2 ---
Procedure Note - Detailed Date of Procedure 01/19/23 Pre-op Diagnosis Bilateral renal stones Post-op Diagnosis Same Procedure Performed Right ESWL Surgeon Zane Woodard MD Anesthesia General Description of Procedure The patient was brought to the operative suite where she was placed in the supine position on the Dornier lithotripsy table. The focal point of the lithotripter was placed at a collection of stones in her right lower pole. A total of 2500 shocks were delivered at a power setting of 4. There appeared to be good fragmentation of the stone. The patient tolerated the procedure well and was taken to the recovery room in good condition. Drains No Packing No Pathology None sent Complications No immediate complications
[2023-01-19] MEDS: fentaNYL CITRATE INJ (*CRX) 100 MCG/2 ML VIAL 25 MCG IV PUSH ×4 (10:16→10:49)
[2023-01-19 10:29] LABS: Glucose Point of Care 100 mg/dl (65-105)
[2023-01-19] MEDS: PROMETHAZINE HCL 25 MG/ML AMPUL 12.5 MG IV PUSH (10:48)
[2023-01-19] MEDS: oxyCODONE HCL (*CRX) 5 MG TAB IR PO (11:32)
== END 2023-01-19 12:12 | disposition home or self-care (01) ==
PROVIDERS: PCP Physician Assistant; Visit Provider Urology
PROC: (CPT 50590; principal; 2023-01-19 10:30)
DX: N20.0 Calculus of kidney (principal); E78.00 Pure hypercholesterolemia, unspecified; F41.9 Anxiety disorder, unspecified; F31.9 Bipolar disorder, unspecified; R11.0 Nausea; I95.89 Other hypotension; K21.9 Gastro-esophageal reflux disease without esophagitis; M81.0 Age-related osteoporosis without current pathological fracture; E73.1 Secondary lactase deficiency; E55.9 Vitamin D deficiency, unspecified; R01.1 Cardiac murmur, unspecified; K59.00 Constipation, unspecified; G40.909 Epilepsy, unspecified, not intractable, without status epilepticus; K58.9 Irritable bowel syndrome, unspecified; K86.1 Other chronic pancreatitis; Z90.49 Acquired absence of other specified parts of digestive tract; Z87.891 Personal history of nicotine dependence; Z79.2 Long term (current) use of antibiotics; Z79.51 Long term (current) use of inhaled steroids; Z79.891 Long term (current) use of opiate analgesic; Z79.52 Long term (current) use of systemic steroids; Z79.890 Hormone replacement therapy; Z79.899 Other long term (current) drug therapy; Z82.49 Family history of ischemic heart disease and other diseases of the circulatory system
CPT/HCPCS: 50590; 74018; 82948; A9270; J1100; J1200; J1956; J2405; J2550; J2704; J3010; J7120

== ENCOUNTER 2023-01-25 16:25 | Outpatient (CLI) | payer BC, MEDICAID, SELFPAY ==
--- NOTE | ~2023-01-25 | XR_ITS ---
EXAMINATION: XR abdomen/kub 1V DATE: 01/25/2023 16:47 INDICATION: Calculus of kidney. TECHNIQUE: A supine view of the abdomen on 2 radiographs was obtained. COMPARISON: Abdomen radiographs 01/19/2023, CT abdomen and pelvis 01/03/2023 FINDINGS: There are no dilated loops of bowel. Surgical clips in the right upper quadrant are likely from cholecystectomy. There are greater than 20 stones in right kidney measuring up to at least 5 mm. There are approximately 5 stones in left kidney measuring up to 4 mm. There are phleboliths in left pelvis. IMPRESSION: 1. Bilateral kidney stones. Reviewed, dictated and finalized at location E. M FITTER IMPRESSION: 1. Bilateral kidney stones.
== END 2023-01-25 16:26 | disposition home or self-care (01) ==
PROVIDERS: PCP Physician Assistant; Visit Provider Urology
DX: N20.0 Calculus of kidney (principal)
CPT/HCPCS: 74018

== ENCOUNTER 2023-02-05 08:48 | Outpatient (CLI) | payer BC, MEDICAID, SELFPAY ==
[2023-02-05 10:10] LABS: Albumin Level 4.2 g/dL (3.5-5.1); Anion Gap 9 mmol/L (8-16); Blood Urea Nitrogen 10 mg/dL (7-17); Calcium 9.3 mg/dL (8.4-10.2); Carbon Dioxide 24 mmol/L (22-30); Chloride 106 mmol/L (98-107); Estimated Glomerular Filt Rate > 60; Glucose 92 mg/dL (65-110); Phosphorus 3.2 mg/dL (2.5-4.5); Potassium 4.7 mmol/L (3.4-5.0); Sodium 139 mmol/L (137-145)
[2023-02-05 10:17] LABS: Parathyroid Intact 160.8 pg/mL (7.5-53.5)
[2023-02-05 10:47] LABS: Vitamin D 25 Hydroxy 32.2 ng/mL
[2023-02-08 11:30] LABS: Vitamin D 1,25 (OH)2 Total 73 pg/mL (18-72); Vitamin D2 1,25 (OH)2 <8 pg/mL; Vitamin D3 1,25 (OH)2 73 pg/mL
== END 2023-02-05 08:49 | disposition home or self-care (01) ==
LOC: ANHLAB 08:50
PROVIDERS: PCP Physician Assistant; Visit Provider Internal Medicine Endocrinology, Diabetes & Metabolism
DX: M85.80 Other specified disorders of bone density and structure, unspecified site (principal); R79.89 Other specified abnormal findings of blood chemistry; E55.9 Vitamin D deficiency, unspecified
CPT/HCPCS: 36415; 80069; 82306; 82652; 83970

== ENCOUNTER 2023-02-12 13:40 | Outpatient (CLI) | payer BC, MEDICAID, SELFPAY ==
--- NOTE | ~2023-02-12 | XR_ITS ---
EXAMINATION: XR abdomen/kub 1V DATE: 02/12/2023 13:58 INDICATION: Bilateral nephrolithiasis. TECHNIQUE: A supine view of the abdomen on 2 radiographs was obtained. COMPARISON: 02/04/2023 FINDINGS: Cholecystectomy clips in right upper quadrant. No dilated gas-filled loops of bowel to suggest obstru ction. Again seen are a collection of numerous stones measuring up to 5 mm in the lower pole calyces of the right kidney. These do not appear significantly changed since the prior study although portion s are as clinically visualized due to a superimposed colonic haustra. Also unchanged are a couple sto thaddeus, the larger measuring up to 3-4 mm at the lower pole of the left kidney. IMPRESSION: 1. No evident change in bilateral nephrolithiasis Reviewed, dictated and finalized at location A. NEYMAN WELDER
== END 2023-02-12 13:41 | disposition home or self-care (01) ==
PROVIDERS: PCP Physician Assistant; Visit Provider Urology
DX: N20.0 Calculus of kidney (principal)
CPT/HCPCS: 74018

== ENCOUNTER 2023-02-26 11:25 | Outpatient (CLI) | payer BC, MEDICAID, SELFPAY ==
--- NOTE | ~2023-02-26 | XR_ITS ---
EXAMINATION: XR abdomen/kub 1V INDICATION: Bilateral kidney stones TECHNIQUE: Supine views of the abdomen were obtained on 2 radiographs. COMPARISON: 02/12/2023 FINDINGS: There are multiple stable nonobstructing stones of the right kidney. There are two or three adjacent stones of the left kidney lower pole measuring up to 3 mm. No stones are identified along t he expected courses of the ureters. There are phleboliths of the left pelvis. Cholecystectomy clips a re noted. The bowel gas pattern is normal. IMPRESSION: 1. Stable bilateral nephrolithiasis. Reviewed, dictated and finalized at location B. Y MACHINERY OPERATOR
== END 2023-02-26 11:26 | disposition home or self-care (01) ==
PROVIDERS: PCP Physician Assistant; Visit Provider Urology
DX: N20.0 Calculus of kidney (principal)
CPT/HCPCS: 74018

== ENCOUNTER 2023-03-05 06:35 | Outpatient (CLI) | payer BC, MEDICAID, SELFPAY ==
--- NOTE | ~2023-03-05 | XR_ITS ---
EXAMINATION: XR UGIAC w small bowel DATE: 03/05/2023 10:28 INDICATION: Chronic right upper quadrant abdominal pain TECHNIQUE: The patient drank thick barium, gas-producing crystals, and thin barium. A total of 591 fl uoroscopic images of the esophagus, stomach, and proximal small bowel were obtained. 10 overhead radi ographs of the abdomen and pelvis were also obtained. Fluoroscopy exposure time was 2.5 minutes. Tota l DAP was 102.231 Gycm^2 COMPARISON: None. FINDINGS: The esophagus is normal without mass or stricture. Esophageal motility is normal. There is no hiatal hernia. The stomach and proximal small bowel are normal. TECHNIQUE: The patient drank thick barium, gas-producing crystals, and thin barium. Conventional supi ne abdomen radiographs and fluoroscopic spot radiographs of the esophagus, stomach, and proximal smal l bowel were obtained. Additional overhead radiographs were obtained during the transit through the s mall bowel. Spot fluoroscopic images of the small bowel were obtained upon contrast reaching the cec um. Fluoroscopy exposure time was 2.5 minutes. A total of 10 overhead radiographs and 591 fluoroscopi c images were recorded. Total DAP was 102.231 Gycm^2. COMPARISON: CT abdomen pelvis dated 01/03/2023 FINDINGS: The esophagus is normal without mass or stricture. Esophageal motility is normal. There is no hiatal hernia. Gastroesophageal reflux of a small amount of contrast extending to the mid esophagus was obse rved extending with provocative maneuvers. Contour abnormality along the anterior wall of the greater curvature of the stomach with small widemouthed outpouching which correlates with prior CT with a si te of a prior percutaneous gastrostomy tube. The stomach and proximal small bowel are otherwise unrem arkable. Transit time from the stomach to proximal colon was approximately 15-30 minutes. There is normal cyrus yogesh and mucosal fold pattern throughout the small bowel. Terminal ileum is normal. IMPRESSION: 1. Gastroesophageal reflux. 2. Small widemouthed outpouching of the anterior wall of the gastric body likely sequela of a prior p ercutaneous gastrostomy tube. 3. Normal small bowel follow-through. Reviewed, dictated and finalized at location A. E CHECKER IMPRESSION: 1. Gastroesophageal reflux. 2. Small widemouthed outpouching of the anterior wall of the gastric body likel y sequela of a prior percutaneous gastrostomy tube. 3. Normal small bowel follow-through.
== END 2023-03-05 06:36 | disposition home or self-care (01) ==
PROVIDERS: PCP Physician Assistant; Visit Provider Nurse Practitioner
DX: K21.9 Gastro-esophageal reflux disease without esophagitis (principal); G89.29 Other chronic pain
CPT/HCPCS: 74246; 74248

== ENCOUNTER 2023-03-29 01:03 | Day surgery (SDC) | payer BC, MEDICAID, SELFPAY ==
[2023-03-23 11:19] VITALS: BMI 40.7
--- NOTE | 2023-03-23 11:23 | PC.NURSE ---
Report to the Outpatient Waiting Room, entrance under the green pavilion located off [facility], at time 0930 on date 03/29/23. Planned Procedure Time: 1130. Time changes happen often and if your time is changed the preop area will call you the afternoon before. - You and your visitor will be asked to self-screen and do not enter if you have any COVID symptoms. - A mask is optional within the hospital at this time. Patients may have clear liquids (water, carbonated beverages, clear teas, apple juice) until 3 hours prior to surgery with a maximum of 20 ounces. - No food from midnight until time of surgery Take the following medications with a SIP of water the morning of surgery: INHALERS, EYE DROPS, ACYCLOVIR, CLONAZEPAM, FLUDROCORTISONE, LAMOTRIGINE, REGLAN, SERTRALINE, TRIMETHOPRIM, VENLAFAXINE, VRAYLAR, TRAMADOL IF NEEDED DO NOT STOP ANY OF YOUR OTHER PRESCRIPTION MEDICATIONS PRIOR TO SURGERY ?EXCEPT THE FOLLOWING Medications to discontinue per physician: VITAMINS/SUPPLEMENTS Date to take last dose: PT HAS ALREADY STOPPED Please no make-up, nail frisian, hairspray, perfume, deodorant, or body powder the day of surgery. No jewelry (including any body piercings) or valuables the day of surgery, leave them at home. Please take a shower or bath the night before, or the morning of, surgery with an antibacterial soap. Wear comfortable, loose fitting clothing. - Jewelry must be removed prior to entering the operating room. Rings and piercings that are not removed may be cut off. - The hospital will not accept responsibility for valuables. - Please leave all valuables, including medications, at home the day of surgery. If you are going home after surgery, a licensed road oiling truck driver must drive you home. - NO public transportation without another adult if you receive anesthesia. - We recommend that an adult stay with you for 24 hours following discharge. - We also recommend that you do not drive, make important decision, drink alcoholic beverages, or take any drugs that were not prescribed by your health care provider for at least 24 hours after your discharge time. Follow any additional instructions given to you from your surgeon. If you or anyone in your household have experienced Covid symptoms in the past week, please notify your surgeon or the nurse liaison at the phone number below for possible testing. Telephone instructions given to PT - FREDDY NEVAREZ and asked if any additional questions and then verbalized understanding. Patient advised to call surgeon office or pre surgery nurse liaison [phone] if any additional questions.
--- NOTE | 2023-03-28 07:27 | PM.HPGS ---
History of Present Illness History of Present Illness Consent: Risks, benefits, and alternatives have been discussed and questions answered. Patient agrees to proceed with procedure. Chief complaint: right renal kidney stones Narrative: Joy Oliveira is a 52 year old female who is known to have recurrent urolithiasis and has undergone recent right ESWL for several stones. The fragments are not passing freely and can she continues to have right flank pain. After discussion of options she is elected for cystoscopy with right ureteroscopy, stone extraction, possible stent placement and retrograde pyelography. Review of Systems Review of Systems: All systems reviewed & are unremarkable except as noted in HPI and below PMFSH Past Medical History Medical History (Updated 02/26/23 @ 15:23 by Ramana Lieberman PA-C) Abnormal uterine bleeding Adrenal insufficiency CAIT positive Ankle fracture Lt. 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 Dizziness Dysphagia Endometriosis s/p total hysterectomy Feeding by G-tube Refeeding via G-tube, removed 2014 Fibroids Gastroparesis Generalized OA GERD (gastroesophageal reflux disease) Heart murmur Hernia of abdominal wall Herpes zoster High serum parathyroid hormone (PTH) History of angina History of esophageal dilatation History of rectal polyps Hx of corneal abrasion Hx of hiatal hernia Hyperlipidemia Hypotension, chronic IBS (irritable bowel syndrome) Inflammatory arthritis Keratitis Kidney stones Left foot pain Left knee DJD Legal blindness Low vitamin D level Medial meniscus tear Nausea Osteoporosis Other fatigue Patellofemoral chondrosis Patellofemoral pain syndrome Popliteal cyst Right knee DJD Seizures Last seizure 2017 Stomach ulcer w/GIB Stress fracture Synovial cyst of popliteal space [Yuan], left knee Tendinitis of left rotator cuff Type 2 diabetes mellitus without complications Diet-controlled, previously on metformin Upper abdominal pain Vertigo Vitamin D deficiency Zoster ophthalmicus Surgical History Surgical History H/O left wrist surgery carpal tunnel History of ankle surgery Lt. History of appendectomy History of cholecystectomy History of hysterectomy Total hysterectomy History of lithotripsy History of oophorectomy MICHA. History of tonsillectomy Hx of cardiac cath x2. No cardiac stents Family History Family History Sibling Family history of migraine headaches Mother Family history of cardiovascular disease Family history of hypercholesterolemia Hypertension Father Family history of primary malignant neoplasm of liver Family history of liver disease Family history of alcoholism Other Family history of cerebrovascular accident (CVA) Social History Social History Smoking packs per day: 0.5 Smoking cigarettes per day: 10.0 Years smoked: 4 Smoking pack-years: 2.00 Smoking status: Former smoker Tobacco type: cigarettes Second hand tobacco smoke exposure: No Smoking end date: 03/19/93 Alcohol intake: never Substance use: never Substance use type: does not use Lack of Transportation: No Lack of Food: Never True Current Housing: I Have Housing Concerned About Future Housing: No Difficulty Paying Gas/Electric Bills: No Difficulty Paying for Meds: No Currently Unemployed: No
[2023-03-29] VITALS (8 sets, daily range): BP systolic 129–145; BP diastolic 66–89; PULSE 85–104; RESP 14–20; TEMP 35.8–36.4; O2SAT 92–98
--- NOTE | ~2023-03-29 | XR_ITS ---
EXAMINATION: XR retrograde pyelo w/stent RT DATE: 03/29/2023 13:33 INDICATION: Right kidney stones. TECHNIQUE: 44 intraoperative fluoroscopic views of the abdomen and pelvis were obtained. I was not pr esent. Fluoroscopy exposure time was 50 seconds. COMPARISON: Abdomen radiographs 02/28/2023 FINDINGS: There are multiple stones in the right kidney. The right-sided retrograde pyelogram is othe rwise unremarkable. The final images demonstrate a right internal ureteral stent in expected position . IMPRESSION: 1. Right kidney stones. 2. Right internal ureteral stent in expected position. Reviewed, dictated and finalized at location A. TRICAL ASSISTANT
--- NOTE | 2023-03-29 06:26 | WPDHPUPDATE1 ---
History and Physical Update Update Date/Time: 03/29/23 06:26 History and Physical has been reviewed, including an updated exam of the patient. There are NO changes in the patient's condition. Risks, benefits, and alternatives have been discussed and questions answered. Patient agrees to proceed with procedure.
[2023-03-29 09:56] LABS: Glucose Point of Care 93 mg/dl (65-105)
[2023-03-29] MEDS: LACTATED RINGERS 1,000 ML 30 ML IV CONT ×2 (11:05→13:36)
--- NOTE | 2023-03-29 11:39 | WPDANESEPPF ---
Anes - Initial Pre Proc Eval Procedure: Operation Date: 03/29/23 11:30 Proposed Procedures p Cystoscopy, Right Ureteroscopy, Right Retrograde Pyelogram, Possible Right Stone Extraction, Possible Right Stent Placement, Possible Holmium Laser - Zane Woodard MD Date/Time: 03/29/23 11:39 Surgeon: Zane Woodard MD Pre Op Diagnosis: right renal kidney stones Patient Data Age: 52 Gender: F Height: 1.6 m Weight: 109.3 kg Last Vital Signs Temp 35.8 C L 03/29/23 09:45 Pulse 85 03/29/23 09:45 Resp 16 03/29/23 09:45 BP 143/69 H 03/29/23 09:45 Pulse Ox 94 03/29/23 09:45 O2 Del Method Room Air 03/29/23 09:45 Allergies Allergy/AdvReac Type Severity Reaction Status Date / Time aspirin Allergy Intermediate Rash Verified 03/29/23 10:01 azelastine Allergy Intermediate Itching Verified 03/29/23 10:05 ceftriaxone Allergy Intermediate Rash Verified 03/29/23 10:01 fluconazole Allergy Intermediate Rash Verified 03/29/23 10:01 Iodinated Contrast Media Allergy Intermediate Hives Verified 03/29/23 10:01 iodine Allergy Intermediate Hives Verified 03/29/23 10:01 ioversol Allergy Intermediate Hives Verified 03/29/23 10:05 meperidine Allergy Intermediate Rash Verified 03/29/23 10:05 nitrofurantoin Allergy Intermediate Rash Verified 03/29/23 10:01 silicone Allergy Intermediate Swelling Verified 03/29/23 10:01 Sulfa (Sulfonamide Allergy Rash Verified 03/29/23 10:01 Antibiotics) sulfamethoxazole Allergy Rash Verified 03/29/23 10:01 [From Bactrim] Home Medications Medication Instructions Recorded Confirmed Type clonazepam 0.5 mg tablet 0.5 mg PO Q6H 01/17/19 03/29/23 History lamotrigine 200 mg tablet 200 mg PO BID 01/17/19 03/29/23 History lifitegrast 5 % eye drops in a 1 drop ophthalmic (eye) BID 01/17/19 03/23/23 History dropperette (Xiidra) melatonin 10 mg capsule 10 mg PO HS 01/17/19 03/23/23 History tamsulosin 0.4 mg capsule 0.4 mg PO DAILY 01/17/19 03/23/23 History trazodone 100 mg tablet 100 mg PO QHS 01/17/19 03/23/23 History carboxymethyl 0.5 %-glycerin 1 1 drp EACH EYE BID 06/07/20 03/23/23 History %-polysorb 80 0.5 %-PF eye dropperette (Refresh Optive Luis-3 (PF)) diclofenac sodium 1 % topical gel 2 g topical Q6-8H PRN Pain 06/06/21 03/23/23 History cariprazine 1.5 mg capsule 3 mg PO DAILY 07/17/21 03/23/23 History (Vraylar) docusate sodium 100 mg capsule 100 mg PO QAM 09/12/21 03/23/23 History (Colace) polyethylene glycol 3350 17 17 g PO QAM 09/12/21 03/23/23 History gram/dose oral powder (Miralax) acyclovir 800 mg tablet 800 mg PO BID shingles 12/01/21 03/29/23 History rimegepant 75 mg disintegrating 75 mg PO ONCE PRN Headache 12/01/21 03/23/23 History tablet (Nurtec ODT) lactase 3,000 unit tablet (Lactaid) 3,000 unit PO ONCE PRN Lactose 03/21/22 03/23/23 History Intolerance gbukqd-kguqhcjl-prjgcdl 2 cap PO QID PRN chronic 07/12/22 03/23/23 Rx 10,000-32,000-42,000 unit pancreatitis 1 month #240 caps capsule,delayed rel albuterol sulfate 2.5 mg/3 mL 2.5 mg (3 mL) inhalation Q4-6H PRN 08/21/22 03/23/23 Rx (0.083 %) solution for nebulization shortness of breath or wheezing #90 mL famotidine 20 mg chewable tablet 20 mg PO BID 08/21/22 03/23/23 History terbinafine HCl 250 mg tablet 250 mg PO DAILY 08/21/22 03/23/23 History venlafaxine 75 mg capsule,extended 75 mg PO DAILY 08/21/22 03/23/23 History release 24 hr calcitriol 0.25 mcg capsule See Rx Instructions .Route 09/04/22 03/23/23 Rx .COMPLEX #13 caps benzonatate 200 mg capsule 200 mg PO TID PRN cough #60 caps 09/14/22 03/23/23 Rx cholecalciferol (vitamin D3) 1,250 50,000 unit PO 2XW 30 days #9 caps 10/23/22 03/23/23 Rx mcg (50,000 unit) capsule tolnaftate 1 % topical powder 1 applic topical BID #45 grams 11/29/22 03/23/23 Rx clotrimazole-betamethasone 1 1 applic topical BID #45 grams 01/01/23 03/23/23 Rx %-0.05 % topical cream conjugated estrogens 1.25 mg tablet 1.25 mg PO DAILY 1
[2023-03-29] MEDS: SCOPOLAMINE 1 MG PATCH 1 PATCH TRANSDERM (11:59)
[2023-03-29] MEDS: levoFLOXacin 500 MG/D5W 100 ML 500 MG/100 ML BAG 100 MG IVPB (12:46)
[2023-03-29] MEDS: LIDOCAINE HCL 2% GEL UROJET 10 ML PKG MUCOUS MEM (12:54)
--- NOTE | 2023-03-29 13:35 | W.PM.PROC2 ---
Procedure Note - Detailed Date of Procedure 03/29/23 Pre-op Diagnosis Right kidney stones Post-op Diagnosis Same Procedure Performed Cystoscopy, right retrograde pyelography, right ureteroscopy with stone extraction and right ureteral stent placement Surgeon Zane Woodard MD Anesthesia General Description of Procedure Patient is brought to the operative suite where she was prepped and draped in routine sterile fashion while in a dorsal lithotomy position after the uneventful induction of a general LMA anesthetic. Cystoscopy was undertaken with a 19 F rigid cystoscope. Bladder neck and urethra are endoscopically normal. Bladder mucosa was without hyperemia. There was no intravesical foreign body or neoplasm. 0.035 in glidewire was advanced in the pelvis. The distal ureter was dilated with a 8 F / 10 F ureteral dilator and and 11 F/ 13 F access sheath was placed with a safety wire. Ureteroscopy was undertaken with a 7.5 F digital ureteral scope. Retrograde pyelography was used to identify and map the collecting system. All calices were carefully identified. Her stone fragments reside in the lower most calyx. Using a 1.9 F disposable stone basket all accessible stones were extracted. I could see some stones under tissue in the renal papilla that were not accessible to grasping and removal. Having removed all visible stones I removed the ureteral scope placed a 4.8 F variable length stent with proximal coil in renal pelvis and distal coil in the bladder. Drains No Packing No Pathology Yes Complications No immediate complications Condition Stable Disposition PACU
[2023-03-29] MEDS: ONDANSETRON INJ 4 MG/2 ML VIAL IV PUSH (13:48)
[2023-03-29] MEDS: fentaNYL CITRATE INJ (*CRX) 100 MCG/2 ML VIAL 25 MCG IV PUSH ×4 (13:58→14:15)
[2023-03-29 14:22] LABS: Glucose Point of Care 97 mg/dl (65-105)
--- NOTE | 2023-03-29 15:18 | SUR.PHASEII ---
PATIENT STATES SHE FEELS DIZZY; DRINKING FLUIDS; IVF'S INFUSING.
== END 2023-03-29 15:54 | disposition home or self-care (01) ==
PROVIDERS: PCP Physician Assistant; Visit Provider Urology
PROC: (CPT 52352; principal; 2023-03-29 11:30)
DX: N20.0 Calculus of kidney (principal); F41.9 Anxiety disorder, unspecified; E53.8 Deficiency of other specified B group vitamins; E78.5 Hyperlipidemia, unspecified; I10 Essential (primary) hypertension; E55.9 Vitamin D deficiency, unspecified; E11.9 Type 2 diabetes mellitus without complications; J45.909 Unspecified asthma, uncomplicated; F31.9 Bipolar disorder, unspecified; H54.8 Legal blindness, as defined in USA; K21.9 Gastro-esophageal reflux disease without esophagitis; R01.1 Cardiac murmur, unspecified; E27.40 Unspecified adrenocortical insufficiency; K58.9 Irritable bowel syndrome, unspecified; M81.0 Age-related osteoporosis without current pathological fracture; E66.01 Morbid (severe) obesity due to excess calories; Z68.41 Body mass index [BMI] 40.0-44.9, adult; Z79.51 Long term (current) use of inhaled steroids; Z79.85 Long-term (current) use of injectable non-insulin antidiabetic drugs; Z79.891 Long term (current) use of opiate analgesic; Z90.49 Acquired absence of other specified parts of digestive tract; Z95.5 Presence of coronary angioplasty implant and graft; Z87.891 Personal history of nicotine dependence; Z87.442 Personal history of urinary calculi; Z86.010 Personal history of colon polyps; Z82.49 Family history of ischemic heart disease and other diseases of the circulatory system; Z80.0 Family history of malignant neoplasm of digestive organs
CPT/HCPCS: 52352; 52332; 74420; 82365; 82948; 88300; A9270; C1769; C1894; C2617; J1100; J1170; J1956; J2250; J2405; J2704; J3010; J7120; Q9966

== ENCOUNTER 2023-04-23 10:06 | Outpatient (CLI) | payer BC, MEDICAID, SELFPAY ==
[2023-04-23 10:57] LABS: Alanine Aminotransferase 22 U/L (6-35); Aspartate Amino Transferase 38 U/L (14-36)
== END 2023-04-23 10:07 | disposition home or self-care (01) ==
PROVIDERS: PCP Physician Assistant; Visit Provider Podiatrist Foot & Ankle Surgery
DX: B35.1 Tinea unguium (principal)
CPT/HCPCS: 36415; 84450; 84460

== ENCOUNTER 2023-04-27 16:37 | Emergency (ER) | payer BC, MEDICAID, SELFPAY ==
--- NOTE | 2023-04-27 16:39 | ED.SKABFB ---
HPI - Skin/Abscess/Foreign Bdy General Chief complaint: Dental/Oral Stated complaint: Swollen Cheek Time Seen by Provider: 04/27/23 16:38 Source: patient Mode of arrival: ambulatory Limitations: no limitations History of Present Illness HPI narrative: Patient is a 52-year-old female who presents with left cheek swelling this started 2 days ago. Patient states yesterday the swelling was worse but has resolved slightly. Reports jaws tender to touch and left ear has been painful. States she has dentist appointment on Sunday. Patient denies any better taste in mouth and states she only has 1 tooth on the bottom left. Denies any fever, chills, nausea, vomiting, diarrhea. Related Data Home Medications Medication Instructions Recorded Confirmed clonazepam 0.5 mg tablet 0.5 mg PO Q6H 01/17/19 04/27/23 lamotrigine 200 mg tablet 200 mg PO BID 01/17/19 04/27/23 lifitegrast 5 % eye drops in a 1 drop ophthalmic (eye) BID 01/17/19 04/27/23 dropperette (Xiidra) melatonin 10 mg capsule 10 mg PO HS 01/17/19 04/27/23 tamsulosin 0.4 mg capsule 0.4 mg PO DAILY 01/17/19 04/27/23 trazodone 100 mg tablet 100 mg PO QHS 01/17/19 04/27/23 carboxymethyl 0.5 %-glycerin 1 1 drp EACH EYE BID 06/07/20 04/27/23 %-polysorb 80 0.5 %-PF eye dropperette (Refresh Optive Luis-3 (PF)) diclofenac sodium 1 % topical gel 2 g topical Q6-8H PRN Pain 06/06/21 04/27/23 cariprazine 1.5 mg capsule 3 mg PO DAILY 07/17/21 04/27/23 (Vraylar) docusate sodium 100 mg capsule 100 mg PO QAM 09/12/21 04/27/23 (Colace) polyethylene glycol 3350 17 17 g PO QAM 09/12/21 04/27/23 gram/dose oral powder (Miralax) acyclovir 800 mg tablet 800 mg PO BID shingles 12/01/21 04/27/23 rimegepant 75 mg disintegrating 75 mg PO ONCE PRN Headache 12/01/21 04/27/23 tablet (Nurtec ODT) lactase 3,000 unit tablet (Lactaid) 3,000 unit PO ONCE PRN Lactose 03/21/22 04/27/23 Intolerance famotidine 20 mg chewable tablet 20 mg PO BID 08/21/22 04/27/23 terbinafine HCl 250 mg tablet 250 mg PO DAILY 08/21/22 04/27/23 venlafaxine 75 mg capsule,extended 75 mg PO DAILY 08/21/22 04/27/23 release 24 hr conjugated estrogens 1.25 mg tablet 1.25 mg PO DAILY 01/16/23 04/27/23 galcanezumab-gnlm 120 mg/mL 120 mg subcut MONTHLY 01/16/23 04/27/23 subcutaneous pen injector (Emgality Pen) ondansetron 8 mg disintegrating 4 mg PO Q8H 01/16/23 04/27/23 tablet prednisolone acetate 1 % eye 1 drp EACH EYE Q12H 01/16/23 04/27/23 drops,suspension tramadol 50 mg tablet 50 mg PO TID 01/16/23 04/27/23 trimethoprim 100 mg tablet 100 mg PO DAILY 01/16/23 04/27/23 sertraline 150 mg capsule 150 mg PO DAILY 03/23/23 04/27/23 Allergies Allergy/AdvReac Type Severity Reaction Status Date / Time aspirin Allergy Intermediate Rash Verified 03/29/23 10:01 azelastine Allergy Intermediate Itching Verified 03/29/23 10:05 ceftriaxone Allergy Intermediate Rash Verified 03/29/23 10:01 fluconazole Allergy Intermediate Rash Verified 03/29/23 10:01 Iodinated Contrast Media Allergy Intermediate Hives Verified 03/29/23 10:01 iodine Allergy Intermediate Hives Verified 03/29/23 10:01 ioversol Allergy Intermediate Hives Verified 03/29/23 10:05 meperidine Allergy Intermediate Rash Verified 03/29/23 10:05 nitrofurantoin Allergy Intermediate Rash Verified 03/29/23 10:01 silicone Allergy Intermediate Swelling Verified 03/29/23 10:01 Sulfa (Sulfonamide Allergy Rash Verified 03/29/23 10:01 Antibiotics) sulfamethoxazole Allergy Rash Verified 03/29/23 10:01 [From Bactrim] Review of Systems Review of Systems: All systems reviewed & are unremarkable except as noted in HPI and below Constitutional: Constitutional: Denies body ache(s), Denies chills, Denies fatigue, Denies fever(s), Denies headache(s), Denies malaise and Denies weakness Eyes: Eyes: Denies blurry vision, Denies irritation and Denies loss of vision ENT: Denies otalgia, Reports facial pain, Denies headache(s), Denies nasal discharge, Denies sinus pain and
[2023-04-27 17:01] VITALS: BP 133/81; PULSE 86; RESP 16; TEMP 36.2; O2SAT 97
== END 2023-04-27 17:43 | disposition home or self-care (01) ==
PROVIDERS: Emergency Provider Nurse Practitioner Family; PCP Physician Assistant
DX: K11.21 Acute sialoadenitis (principal); Z87.891 Personal history of nicotine dependence; K21.9 Gastro-esophageal reflux disease without esophagitis; E78.5 Hyperlipidemia, unspecified; M81.0 Age-related osteoporosis without current pathological fracture; F41.9 Anxiety disorder, unspecified; J45.909 Unspecified asthma, uncomplicated; F31.9 Bipolar disorder, unspecified; E11.43 Type 2 diabetes mellitus with diabetic autonomic (poly)neuropathy; K31.84 Gastroparesis; M17.0 Bilateral primary osteoarthritis of knee; H54.8 Legal blindness, as defined in USA; G40.909 Epilepsy, unspecified, not intractable, without status epilepticus
CPT/HCPCS: 99213; G0463

== ENCOUNTER 2023-05-04 06:06 | Emergency (ER) | payer BC, MEDICAID, SELFPAY ==
[2023-05-04] VITALS (15 sets, daily range): BP systolic 136–186; BP diastolic 60–104; PULSE 91–97; RESP 16–28; TEMP 36.3–36.7; O2SAT 94–99
--- NOTE | ~2023-05-04 | XR_ITS ---
Clinical Indication: Chest pain PA and lateral views of the chest: Comparison: 09/14/2022 Findings: Probable minimal left basilar atelectatic change. Right lung clear. No pleural effusion or pneumothorax. Cardiomediastinal silhouette is within normal limits. Bones and soft tissues are unrem arkable. Impression: Probable minimal left basilar atelectatic change. Reviewed, dictated and finalized at location . TECHNICIAN Impression: Probable minimal left basilar atelectatic change.
--- NOTE | 2023-05-04 06:13 | ECG_ITS ---
Measurements Intervals Adel Rate: 92 P: 46 DC: 146 QRS: 38 QRSD: 84 T: 37 QT: 370 QTc: 458 Interpretive Statements SINUS RHYTHM LOW QRS VOLTAGE IN PRECORDIAL LEADS [QRS DEFLECTION < 1.0 mV IN CHEST LEADS] BORDERLINE ECG COMPARED TO ECG 01/16/2023 14:25:32 NO SIGNIFICANT CHANGES Electronically Signed On 05-04-2023 15:16:23 FIRE PREVENTION RESEARCH ENGINEER by Eliud Tabares M.D.
[2023-05-04 06:35] LABS: Basophils Absolute Auto 0.1 K/mm3 (0.0-0.1); Basophils Percent Auto 0.3 % (0.2-1.2); Eosinophils Absolute Auto 0.3 K/mm3 (0-0.3); Eosinophils Percent Auto 1.5 % (0-4.4); Hematocrit 41.8 % (37.0-47.0); Hemoglobin 13.2 g/dL (12.0-15.0); Immature Granulocyte Absolute 0.09 K/mm3 (0.00-0.031); Immature Granulocyte Percent A 0.5 % (0-0.5); Lymphocytes Absolute Auto 1.19 K/mm3 (0.9-3.2); Lymphocytes Percent Auto 6.9 % (18.3-44.2); Mean Corpuscular HGB Conc 31.6 g/dl (32-36); Mean Corpuscular Hemoglobin 27.2 pg (26-34); Mean Corpuscular Volume 86.2 fl (80-100); Mean Platelet Volume 9.3 fl (7.4-10.4); Monocytes Percent Auto 5.6 % (2.6-8.5); Neutrophils Absolute Auto 14.6 K/mm3 (1.3-6.7); Neutrophils Percent Auto 85.2 % (45.5-73.1); Platelet Count Result 330 k/mm3 (150-375); Red Blood Count 4.85 M/mm3 (4.2-5.4); Red Cell Distribution Width 14.9 % (11.5-14.5); White Blood Count 17.2 K/mm3 (4.5-10.0)
[2023-05-04 06:41] LABS: INR 0.9; Partial Thromboplastin Time 27.2 SECONDS (22.3-36.8); Prothrombin Time 12.9 Seconds (11.1-14.7)
[2023-05-04 06:44] LABS: Alanine Aminotransferase 29 U/L (6-35); Albumin Level 4.2 g/dL (3.5-5.1); Alkaline Phosphatase 100 U/L (38-126); Anion Gap 3 mmol/L (8-16); Aspartate Amino Transferase 52 U/L (14-36); Bilirubin,Total 0.7 mg/dL (0.2-1.3); Blood Urea Nitrogen 8 mg/dL (7-17); Calcium 9.3 mg/dL (8.4-10.2); Carbon Dioxide 26 mmol/L (22-30); Chloride 108 mmol/L (98-107); Estimated CRCL calculation 109 ml/min; Estimated Glomerular Filt Rate > 60; Glucose 110 mg/dL (65-110); Lipase 96 U/L (23-300); Potassium 4.3 mmol/L (3.4-5.0); Sodium 137 mmol/L (137-145)
[2023-05-04 06:53] LABS: Troponin I < 0.012 ng/mL (0.000-0.034)
[2023-05-04] MEDS: MORPHINE SULFATE (*CRX) 4 MG/ML INJ IV PUSH (07:48)
--- NOTE | 2023-05-04 09:13 | ECG_ITS ---
Measurements Intervals Jean Rate: 95 P: 45 MD: 158 QRS: 30 QRSD: 83 T: 30 QT: 351 QTc: 441 Interpretive Statements SINUS RHYTHM LOW QRS VOLTAGE IN PRECORDIAL LEADS [QRS DEFLECTION < 1.0 mV IN CHEST LEADS] OTHERWISE UNREMARKABLE ECG COMPARED TO ECG 05/04/2023 06:16:45 NO SIGNIFICANT CHANGES Electronically Signed On 05-04-2023 15:19:53 ADVANCED PRACTICE NURSE PSYCHOTHERAPIST by Eliud Tabares M.D.
[2023-05-04 09:44] LABS: Troponin I < 0.012 ng/mL (0.000-0.034)
--- NOTE | 2023-05-04 10:49 | ED.CHESTPAIN ---
HPI - Chest Pain General Chief Complaint: Chest Pain Stated Complaint: chest pain Time Seen by Provider: 05/04/23 07:00 History of Present Illness HPI narrative: Patient is a 52-year-old female who presents ER with chest pain. Began late last night. Central aching. Worse with movement and touch. She felt it may be related to reflux and took some of her medication. No nausea vomiting. No diaphoresis. Denies history of heart disease. Patient recently diagnosed with the glandular infection is been started on oral antibiotics. No difficulty breathing or swelling. Related Data Home Medications Medication Instructions Recorded Confirmed clonazepam 0.5 mg tablet 0.5 mg PO Q6H 01/17/19 04/27/23 lamotrigine 200 mg tablet 200 mg PO BID 01/17/19 04/27/23 lifitegrast 5 % eye drops in a 1 drop ophthalmic (eye) BID 01/17/19 04/27/23 dropperette (Xiidra) melatonin 10 mg capsule 10 mg PO HS 01/17/19 04/27/23 tamsulosin 0.4 mg capsule 0.4 mg PO DAILY 01/17/19 04/27/23 trazodone 100 mg tablet 100 mg PO QHS 01/17/19 04/27/23 carboxymethyl 0.5 %-glycerin 1 1 drp EACH EYE BID 06/07/20 04/27/23 %-polysorb 80 0.5 %-PF eye dropperette (Refresh Optive Luis-3 (PF)) diclofenac sodium 1 % topical gel 2 g topical Q6-8H PRN Pain 06/06/21 04/27/23 cariprazine 1.5 mg capsule 3 mg PO DAILY 07/17/21 04/27/23 (Vraylar) docusate sodium 100 mg capsule 100 mg PO QAM 09/12/21 04/27/23 (Colace) polyethylene glycol 3350 17 17 g PO QAM 09/12/21 04/27/23 gram/dose oral powder (Miralax) acyclovir 800 mg tablet 800 mg PO BID shingles 12/01/21 04/27/23 rimegepant 75 mg disintegrating 75 mg PO ONCE PRN Headache 12/01/21 04/27/23 tablet (Nurtec ODT) lactase 3,000 unit tablet (Lactaid) 3,000 unit PO ONCE PRN Lactose 03/21/22 04/27/23 Intolerance famotidine 20 mg chewable tablet 20 mg PO BID 08/21/22 04/27/23 terbinafine HCl 250 mg tablet 250 mg PO DAILY 08/21/22 04/27/23 venlafaxine 75 mg capsule,extended 75 mg PO DAILY 08/21/22 04/27/23 release 24 hr conjugated estrogens 1.25 mg tablet 1.25 mg PO DAILY 01/16/23 04/27/23 galcanezumab-gnlm 120 mg/mL 120 mg subcut MONTHLY 01/16/23 04/27/23 subcutaneous pen injector (Emgality Pen) ondansetron 8 mg disintegrating 4 mg PO Q8H 01/16/23 04/27/23 tablet prednisolone acetate 1 % eye 1 drp EACH EYE Q12H 01/16/23 04/27/23 drops,suspension tramadol 50 mg tablet 50 mg PO TID 01/16/23 04/27/23 trimethoprim 100 mg tablet 100 mg PO DAILY 01/16/23 04/27/23 sertraline 150 mg capsule 150 mg PO DAILY 03/23/23 04/27/23 Allergies Allergy/AdvReac Type Severity Reaction Status Date / Time aspirin Allergy Intermediate Rash Verified 05/04/23 06:23 azelastine Allergy Intermediate Itching Verified 05/04/23 06:23 ceftriaxone Allergy Intermediate Rash Verified 05/04/23 06:23 fluconazole Allergy Intermediate Rash Verified 05/04/23 06:23 Iodinated Contrast Media Allergy Intermediate Hives Verified 05/04/23 06:23 iodine Allergy Intermediate Hives Verified 05/04/23 06:23 ioversol Allergy Intermediate Hives Verified 05/04/23 06:23 meperidine Allergy Intermediate Rash Verified 05/04/23 06:23 nitrofurantoin Allergy Intermediate Rash Verified 05/04/23 06:23 silicone Allergy Intermediate Swelling Verified 05/04/23 06:23 Sulfa (Sulfonamide Allergy Rash Verified 03/29/23 10:01 Antibiotics) sulfamethoxazole Allergy Rash Verified 03/29/23 10:01 [From Bactrim] Review of Systems Review of Systems: All systems reviewed & are unremarkable except as noted in HPI and below Constitutional: Constitutional: Reports no additional constitutional complaints ENT: Reports system reviewed and no additional complaints, except as documented Cardiovascular: Cardiovascular: Reports chest pain, Denies rapid heart rate and Denies radiating jaw, neck or arm pain Respiratory: Respiratory: Reports no additional respiratory complaints Gastrointestinal: Gastrointestinal: Denies abdominal pain, Reports heartburn, Denies naus
== END 2023-05-04 11:15 | disposition home or self-care (01) ==
PROVIDERS: Student in an Organized Health Care Education/Training Program; Emergency Provider Emergency Medicine; PCP Physician Assistant
DX: R07.9 Chest pain, unspecified (principal); J45.909 Unspecified asthma, uncomplicated; E27.40 Unspecified adrenocortical insufficiency; E11.43 Type 2 diabetes mellitus with diabetic autonomic (poly)neuropathy; K31.84 Gastroparesis; E78.5 Hyperlipidemia, unspecified; E53.8 Deficiency of other specified B group vitamins; E55.9 Vitamin D deficiency, unspecified; H54.8 Legal blindness, as defined in USA; K86.1 Other chronic pancreatitis; K21.9 Gastro-esophageal reflux disease without esophagitis; K58.9 Irritable bowel syndrome, unspecified; M81.0 Age-related osteoporosis without current pathological fracture; M17.0 Bilateral primary osteoarthritis of knee; F31.9 Bipolar disorder, unspecified; F41.9 Anxiety disorder, unspecified; Z86.010 Personal history of colon polyps; Z87.19 Personal history of other diseases of the digestive system; Z87.442 Personal history of urinary calculi; Z87.891 Personal history of nicotine dependence; Z90.49 Acquired absence of other specified parts of digestive tract; Z90.710 Acquired absence of both cervix and uterus; Z90.722 Acquired absence of ovaries, bilateral; R94.31 Abnormal electrocardiogram [ECG] [EKG]
CPT/HCPCS: 36415; 71046; 80053; 83690; 84484; 85025; 85610; 85730; 93005; 96374; 99284; J2270

== ENCOUNTER 2023-06-12 17:07 | Outpatient (CLI) | payer BC, MEDICAID, SELFPAY ==
--- NOTE | ~2023-06-12 | XR_ITS ---
XR abdomen/kub 1V 06/12/2023 17:27 Indication: Renal stone Procedure: KUB Comparison: Comparison to multiple prior studies sequentially, with oldest reviewed study dated 12/17. Findings: There are clustered right renal stones. There are small left renal stones. There are cholec ystectomy clips. Bowel gas pattern is nonobstructive. No acute osseous abnormality. Impression: 1: Bilateral nephrolithiasis. Reviewed, dictated and finalized at location B. Impression: 1: Bilateral nephrolithiasis.
== END 2023-06-12 17:08 | disposition home or self-care (01) ==
LOC: ANHIMG 17:11
PROVIDERS: PCP Physician Assistant; Visit Provider Urology
DX: N20.0 Calculus of kidney (principal)
CPT/HCPCS: 74018

== ENCOUNTER 2023-07-02 09:46 | Outpatient (CLI) | payer BC, MEDICAID, SELFPAY ==
[2023-07-02 12:31] LABS: Albumin Level 4.3 g/dL (3.5-5.1); Anion Gap 9 mmol/L (4-12); Blood Urea Nitrogen 9 mg/dL (7-17); Calcium 9.6 mg/dL (8.4-10.2); Carbon Dioxide 20 mmol/L (22-30); Chloride 110 mmol/L (98-107); Estimated Glomerular Filt Rate > 60; Glucose 94 mg/dL (65-110); Sodium 139 mmol/L (137-145)
[2023-07-02 13:02] LABS: Vitamin D 25 Hydroxy 22.9 ng/mL
[2023-07-05 13:14] LABS: Vitamin D 1,25 (OH)2 Total 77 pg/mL (18-72); Vitamin D2 1,25 (OH)2 <8 pg/mL; Vitamin D3 1,25 (OH)2 77 pg/mL
[2023-07-05 18:45] LABS: Parathyroid Intact 142.3 pg/mL (7.5-53.5)
== END 2023-07-02 09:47 | disposition home or self-care (01) ==
LOC: ANHWCLAB 09:46
PROVIDERS: PCP Physician Assistant; Visit Provider Internal Medicine Endocrinology, Diabetes & Metabolism
DX: N20.0 Calculus of kidney (principal); E55.9 Vitamin D deficiency, unspecified; R79.89 Other specified abnormal findings of blood chemistry; M85.80 Other specified disorders of bone density and structure, unspecified site
CPT/HCPCS: 36415; 80069; 82306; 82652; 83970

== ENCOUNTER 2023-07-16 06:36 | Outpatient (CLI) | payer BC, MEDICAID, SELFPAY ==
--- NOTE | ~2023-07-16 | CT_ITS ---
Non-contrast CT scan of the Abdomen and Pelvis Clinical indication: Right flank pain Technique: 2.5 mm axial scans were obtained through the abdomen and pelvis without intravenous or or al contrast. Dose reduction technique was used on this scan by utilizing automated exposure control a nd iterative reconstruction technique. The dose-length product (DLP) was 1630.31 mGy-cm. COMPARISON: 01/03/2023 Findings: Images through the lung bases reveal no abnormalities. Multiple bilateral nonobstructing renal stones are present, largest in the right kidney measuring 1.5 cm in diameter. No ureteral stone or hydronephrosis on either side. There is diffuse fatty infiltration of the liver with associated hepatomegaly. Cholecystectomy clips are present. The spleen, pancreas, and adrenals appear normal. There is no aortic aneurysm. There is no evidence of bowel obstruction. Small fat-containing ventral hernia present. Images through the pelvis were performed. There is no evidence of ascites or lymphadenopathy. 2 mm ur inary bladder stone present. No pelvic mass seen. Impression: Multiple bilateral nonobstructing renal stones, as detailed above. 2 mm urinary bladder stone. Hepatomegaly with associated diffuse fatty infiltration of liver. Reviewed, dictated and finalized at [facility]. Impression: Multiple bilateral nonobstructing renal stones, as detailed above. 2 mm urinary bladder stone. Hepatomegaly with associated diffuse fatty infiltration of liver.
== END 2023-07-16 06:37 | disposition home or self-care (01) ==
PROVIDERS: PCP Physician Assistant; Visit Provider Urology
DX: N20.0 Calculus of kidney (principal); N21.0 Calculus in bladder
CPT/HCPCS: 74176

== ENCOUNTER 2023-07-23 07:01 | Outpatient (CLI) | payer BC, MEDICAID, SELFPAY ==
--- NOTE | ~2023-07-23 | NM_ITS ---
EXAMINATION: NM parathyroid w imaging DATE: 07/23/2023 13:03 INDICATION: Other specified abnormal findings of blood chemistry. TECHNIQUE: 20.1 mCi Tc99m sestamibi was administered intravenously. Anterior images of the neck were obtained immediately and at 2 hours. SPECT images of the neck were obtained. COMPARISON: None. FINDINGS: There is no focus of persistent activity in the area of the thyroid or mediastinum to sugge st parathyroid adenoma. IMPRESSION: 1. No evidence of a parathyroid adenoma. Reviewed, dictated and finalized at location A.
== END 2023-07-23 07:02 | disposition home or self-care (01) ==
PROVIDERS: PCP Physician Assistant; Visit Provider Internal Medicine Endocrinology, Diabetes & Metabolism
DX: R79.89 Other specified abnormal findings of blood chemistry (principal); E21.3 Hyperparathyroidism, unspecified; M85.80 Other specified disorders of bone density and structure, unspecified site
CPT/HCPCS: 78070; A9500

== ENCOUNTER 2023-08-01 16:47 | Outpatient (CLI) | payer BC, MEDICAID, SELFPAY ==
[2023-08-01 17:36] LABS: Alanine Aminotransferase 18 U/L (6-35); Aspartate Amino Transferase 33 U/L (14-36)
== END 2023-08-01 16:48 | disposition home or self-care (01) ==
LOC: ANHLAB 16:49
PROVIDERS: PCP Physician Assistant; Visit Provider Podiatrist Foot & Ankle Surgery
DX: B35.1 Tinea unguium (principal)
CPT/HCPCS: 36415; 84450; 84460

== ENCOUNTER 2023-08-23 09:27 | Outpatient (CLI) | payer BC, MEDICAID, SELFPAY ==
[2023-08-23 09:55] LABS: Basophils Percent Auto 0.4 % (0.2-1.2); Eosinophils Absolute Auto 0.2 K/mm3 (0-0.3); Eosinophils Percent Auto 2.6 % (0-4.4); Hematocrit 42.8 % (37.0-47.0); Hemoglobin 13.5 g/dL (12.0-15.0); Immature Granulocyte Absolute 0.09 K/mm3 (0.00-0.031); Lymphocytes Absolute Auto 1.37 K/mm3 (0.9-3.2); Lymphocytes Percent Auto 15.4 % (18.3-44.2); Mean Corpuscular HGB Conc 31.5 g/dl (32-36); Mean Corpuscular Hemoglobin 27.3 pg (26-34); Mean Corpuscular Volume 86.5 fl (80-100); Mean Platelet Volume 9.3 fl (7.4-10.4); Monocytes Absolute Auto 0.7 K/mm3 (0.1-0.6); Monocytes Percent Auto 7.7 % (2.6-8.5); Neutrophils Absolute Auto 6.5 K/mm3 (1.3-6.7); Neutrophils Percent Auto 72.9 % (45.5-73.1); Platelet Count Result 363 k/mm3 (150-375); Red Blood Count 4.95 M/mm3 (4.2-5.4); Red Cell Distribution Width 15.1 % (11.5-14.5); White Blood Count 8.9 K/mm3 (4.5-10.0)
[2023-08-23 11:44] LABS: Alanine Aminotransferase 19 U/L (6-35); Albumin Level 4.2 g/dL (3.5-5.1); Alkaline Phosphatase 113 U/L (38-126); Anion Gap 6 mmol/L (4-12); Aspartate Amino Transferase 29 U/L (14-36); Bilirubin,Total 0.5 mg/dL (0.2-1.3); Blood Urea Nitrogen 9 mg/dL (7-17); Calcium 9.1 mg/dL (8.4-10.2); Carbon Dioxide 22 mmol/L (22-30); Chloride 110 mmol/L (98-107); Cholesterol 253 mg/dL (0-200); Estimated Glomerular Filt Rate > 60; Glucose 95 mg/dL (65-110); HDL Direct 39 mg/dL; Potassium 4.6 mmol/L (3.4-5.0); Sodium 138 mmol/L (137-145); Triglycerides 285 mg/dL (<150)
[2023-08-23 11:54] LABS: LDL Cholesterol Direct 165 mg/dL
[2023-08-23 12:53] LABS: Vitamin B12 > 1000.0 pg/mL (239-931)
== END 2023-08-23 09:28 | disposition home or self-care (01) ==
PROVIDERS: PCP Physician Assistant; Visit Provider Physician Assistant
DX: E78.5 Hyperlipidemia, unspecified (principal); R53.83 Other fatigue
CPT/HCPCS: 36415; 80053; 80061; 82607; 82746; 84443; 85025

== ENCOUNTER 2023-08-27 13:55 | Outpatient (CLI) | payer BC, MEDICAID, SELFPAY ==
--- NOTE | ~2023-08-27 | XR_ITS ---
Supine and upright views of the abdomen Clinical history: Kidney stone COMPARISON: 06/12/2023 Findings: Bowel gas pattern is nonspecific. No evidence for obstruction or free air. Small bilateral renal stones are overall similar to prior exam. Osseous structures are intact. Impression: Small bilateral renal stones are similar to prior exam. Reviewed, dictated and finalized at [facility]. Impression: Small bilateral renal stones are similar to prior exam.
== END 2023-08-27 13:56 | disposition home or self-care (01) ==
LOC: ANHIMG 13:56
PROVIDERS: PCP Physician Assistant; Visit Provider Urology
DX: N20.0 Calculus of kidney (principal)
CPT/HCPCS: 74018

== ENCOUNTER 2023-08-29 12:31 | Outpatient (NON) | payer BC, MEDICAID, SELFPAY ==
[2023-08-29 13:23] LABS: Creatinine Urine 56.5 mg/dL
[2023-08-29 13:26] LABS: Total Volume 24 Hour Urine 1800 ml
[2023-08-31 15:01] LABS: Total Volume 1800 mL
== END 2023-08-29 12:32 | disposition home or self-care (01) ==
PROVIDERS: PCP Physician Assistant; Visit Provider Internal Medicine Endocrinology, Diabetes & Metabolism
DX: E55.9 Vitamin D deficiency, unspecified (principal); M85.80 Other specified disorders of bone density and structure, unspecified site; N20.0 Calculus of kidney; R79.89 Other specified abnormal findings of blood chemistry
CPT/HCPCS: 81050; 82340; 82570

== ENCOUNTER 2023-10-22 14:45 | Emergency (ER) | payer BC, MEDICAID, SELFPAY ==
[2023-10-22 15:02] VITALS: BP 115/69; PULSE 88; RESP 16; TEMP 36.6; O2SAT 97
--- NOTE | 2023-10-22 15:25 | ED.SKABFB ---
HPI - Skin/Abscess/Foreign Bdy General Chief complaint: Skin/Abscess/Foreign Body Stated complaint: Rash Time Seen by Provider: 10/22/23 15:25 Source: patient, RN notes reviewed and old records reviewed Mode of arrival: ambulatory Limitations: no limitations History of Present Illness HPI narrative: 53-year-old female presents to the [facility] with complaints of increased redness to rash she has had for several weeks in her knee the left hand this area into her groin. States that she was using nystatin as well as Neosporin Related Data Home Medications Medication Instructions Recorded Confirmed clonazepam 0.5 mg tablet 0.5 mg PO Q6H 01/17/19 10/22/23 lamotrigine 200 mg tablet 200 mg PO BID 01/17/19 10/22/23 lifitegrast 5 % eye drops in a 1 drop ophthalmic (eye) BID 01/17/19 10/22/23 dropperette (Xiidra) melatonin 10 mg capsule 10 mg PO HS 01/17/19 10/22/23 tamsulosin 0.4 mg capsule 0.4 mg PO DAILY 01/17/19 10/22/23 trazodone 100 mg tablet 100 mg PO QHS 01/17/19 10/22/23 carboxymethyl 0.5 %-glycerin 1 1 drp EACH EYE BID 06/07/20 10/22/23 %-polysorb 80 0.5 %-PF eye dropperette (Refresh Optive Luis-3 (PF)) diclofenac sodium 1 % topical gel 2 g topical Q6-8H PRN Pain 06/06/21 10/22/23 docusate sodium 100 mg capsule 100 mg PO QAM 09/12/21 10/22/23 (Colace) polyethylene glycol 3350 17 17 g PO QAM 09/12/21 10/22/23 gram/dose oral powder (Miralax) acyclovir 800 mg tablet 800 mg PO BID shingles 12/01/21 10/22/23 rimegepant 75 mg disintegrating 75 mg PO ONCE PRN Headache 12/01/21 10/22/23 tablet (Nurtec ODT) lactase 3,000 unit tablet (Lactaid) 3,000 unit PO ONCE PRN Lactose 03/21/22 10/22/23 Intolerance famotidine 20 mg chewable tablet 20 mg PO BID 08/21/22 10/22/23 terbinafine HCl 250 mg tablet 250 mg PO DAILY 08/21/22 10/22/23 venlafaxine 75 mg capsule,extended 75 mg PO DAILY 08/21/22 10/22/23 release 24 hr galcanezumab-gnlm 120 mg/mL 120 mg subcut MONTHLY 01/16/23 10/22/23 subcutaneous pen injector (Emgality Pen) ondansetron 8 mg disintegrating 4 mg PO Q8H 01/16/23 10/22/23 tablet tramadol 50 mg tablet 50 mg PO TID 01/16/23 10/22/23 trimethoprim 100 mg tablet 100 mg PO DAILY 01/16/23 10/22/23 sertraline 150 mg capsule 150 mg PO DAILY 03/23/23 10/22/23 norethindrone (contraceptive) 0.35 0.35 mg PO DAILY 07/02/23 10/22/23 mg tablet cariprazine 3 mg capsule (Vraylar) 3 mg PO DAILY 08/20/23 10/22/23 Allergies Allergy/AdvReac Type Severity Reaction Status Date / Time aspirin Allergy Intermediate Rash Verified 10/22/23 17:42 azelastine Allergy Intermediate Itching Verified 10/22/23 17:42 ceftriaxone Allergy Intermediate Rash Verified 10/22/23 17:42 fluconazole Allergy Intermediate Rash Verified 10/22/23 17:42 Iodinated Contrast Media Allergy Intermediate Hives Verified 10/22/23 17:42 iodine Allergy Intermediate Hives Verified 10/22/23 17:42 ioversol Allergy Intermediate Hives Verified 10/22/23 17:42 meperidine Allergy Intermediate Rash Verified 10/22/23 17:42 nitrofurantoin Allergy Intermediate Rash Verified 10/22/23 17:42 silicone Allergy Intermediate Swelling Verified 10/22/23 17:42 Sulfa (Sulfonamide Allergy Rash Verified 10/22/23 17:43 Antibiotics) sulfamethoxazole Allergy Rash Verified 10/22/23 17:43 [From Bactrim] Review of Systems Review of Systems: All systems reviewed & are unremarkable except as noted in HPI and below Constitutional: Constitutional: Reports no additional constitutional complaints Eyes: Eyes: Reports no additional eye complaints ENT: Reports system reviewed and no additional complaints, except as documented Cardiovascular: Cardiovascular: Reports no additional cardiovascular complaints, Denies chest pain and Denies dyspnea Respiratory: Respiratory: Reports no additional respiratory complaints, Denies chest congestion, Denies cough and Denies dyspnea Gastrointestinal: Gastrointestinal: Reports no additional gastrointestinal complaints, Denies abdominal pain
== END 2023-10-22 15:52 | disposition left against medical advice (07) ==
PROVIDERS: Emergency Provider Nurse Practitioner; PCP Internal Medicine
DX: B37.2 Candidiasis of skin and nail (principal); L03.311 Cellulitis of abdominal wall; L03.314 Cellulitis of groin; Z87.891 Personal history of nicotine dependence; J45.909 Unspecified asthma, uncomplicated; H54.7 Unspecified visual loss; K21.9 Gastro-esophageal reflux disease without esophagitis; R01.1 Cardiac murmur, unspecified; I20.9 Angina pectoris, unspecified; M17.0 Bilateral primary osteoarthritis of knee; M81.0 Age-related osteoporosis without current pathological fracture; E11.9 Type 2 diabetes mellitus without complications; F41.9 Anxiety disorder, unspecified; F32.A Depression, unspecified; G40.909 Epilepsy, unspecified, not intractable, without status epilepticus
CPT/HCPCS: 99211; 99213; G0463

== ENCOUNTER 2023-11-05 09:26 | Outpatient (CLI) | payer BC, MEDICAID, SELFPAY ==
[2023-11-05 12:06] LABS: Alanine Aminotransferase 20 U/L (6-35); Aspartate Amino Transferase 32 U/L (14-36)
== END 2023-11-05 09:27 | disposition home or self-care (01) ==
LOC: ANHLAB 09:28
PROVIDERS: PCP Internal Medicine; Visit Provider Podiatrist Foot & Ankle Surgery
DX: B35.1 Tinea unguium (principal)
CPT/HCPCS: 36415; 84450; 84460

== ENCOUNTER 2023-11-26 07:44 | Outpatient (RCR) | payer BC, MEDICAID, SELFPAY ==
[2023-11-26 09:12] VITALS: BMI 41.7
== END 2023-12-31 14:49 | disposition home or self-care (01) ==
LOC: ANHWOC 07:44
PROVIDERS: PCP Internal Medicine; Visit Provider Nurse Practitioner
DX: L03.311 Cellulitis of abdominal wall (principal)
CPT/HCPCS: 99203; 99213; G0463

== ENCOUNTER 2023-12-10 00:53 | Day surgery (SDC) | payer BC, MEDICAID, SELFPAY ==
[2023-11-20 11:01] VITALS: BMI 41.8
[2023-12-10 06:52] VITALS: BP 126/75; PULSE 79; RESP 16; TEMP 36; O2SAT 97; BMI 41.1
[2023-12-10] MEDS: LACTATED RINGERS 1,000 ML 150 ML IV CONT (07:00)
--- NOTE | 2023-12-10 07:25 | WPDANESEPPF ---
Anes - Initial Pre Proc Eval Procedure: Operation Date: 12/10/23 08:00 Proposed Procedures p Esophagogastroduodenoscopy - Wilber Gustafson MD Date/Time: 12/10/23 07:25 Surgeon: Wilber Gustafson MD Pre Op Diagnosis: Epigastric pain, GERD without esophagitis, dysphag Patient Data Age: 53 Gender: F Height: 1.6 m Weight: 105.3 kg Last Vital Signs Temp 96.8 F L 12/10/23 06:52 Pulse 79 12/10/23 06:52 Resp 16 12/10/23 06:52 BP 126/75 12/10/23 06:52 Pulse Ox 97 12/10/23 06:52 O2 Del Method Room Air 12/10/23 06:52 Allergies Allergy/AdvReac Type Severity Reaction Status Date / Time aspirin Allergy Intermediate Rash Verified 12/10/23 06:47 azelastine Allergy Intermediate Itching Verified 12/10/23 06:47 ceftriaxone Allergy Intermediate Rash Verified 12/10/23 06:47 fluconazole Allergy Intermediate Rash Verified 12/10/23 06:47 Iodinated Contrast Media Allergy Intermediate Hives Verified 12/10/23 06:47 iodine Allergy Intermediate Hives Verified 12/10/23 06:47 ioversol Allergy Intermediate Hives Verified 12/10/23 06:47 meperidine Allergy Intermediate Rash Verified 12/10/23 06:47 nitrofurantoin Allergy Intermediate Rash Verified 12/10/23 06:47 silicone Allergy Intermediate Swelling Verified 12/10/23 06:47 clindamycin Allergy Other Verified 12/10/23 06:47 Sulfa (Sulfonamide Allergy Rash Verified 12/10/23 06:47 Antibiotics) sulfamethoxazole Allergy Rash Verified 12/10/23 06:47 [From Bactrim] Home Medications Medication Instructions Recorded Confirmed Type clonazepam 0.5 mg tablet 0.5 mg PO Q6H 01/17/19 12/10/23 History lamotrigine 200 mg tablet 200 mg PO BID 01/17/19 12/10/23 History lifitegrast 5 % eye drops in a 1 drop ophthalmic (eye) BID 01/17/19 12/10/23 History dropperette (Xiidra) melatonin 10 mg capsule 10 mg PO HS 01/17/19 12/10/23 History tamsulosin 0.4 mg capsule 0.4 mg PO DAILY 01/17/19 12/10/23 History trazodone 100 mg tablet 100 mg PO QHS 01/17/19 12/10/23 History docusate sodium 100 mg capsule 100 mg PO QAM 09/12/21 12/10/23 History (Colace) polyethylene glycol 3350 17 17 g PO QAM PRN Constipation 09/12/21 12/10/23 History gram/dose oral powder (Miralax) acyclovir 800 mg tablet 800 mg PO BID shingles 12/01/21 12/10/23 History rimegepant 75 mg disintegrating 75 mg PO ONCE PRN Headache 12/01/21 12/10/23 History tablet (Nurtec ODT) lactase 3,000 unit tablet (Lactaid) 3,000 unit PO ONCE PRN Lactose 03/21/22 12/10/23 History Intolerance albuterol sulfate 2.5 mg/3 mL 2.5 mg (3 mL) inhalation Q4-6H PRN 08/21/22 12/10/23 Rx (0.083 %) solution for nebulization shortness of breath or wheezing #90 mL famotidine 20 mg chewable tablet 20 mg PO BID 08/21/22 12/10/23 History terbinafine HCl 250 mg tablet 250 mg PO DAILY 08/21/22 12/10/23 History venlafaxine 75 mg capsule,extended 75 mg PO DAILY 08/21/22 12/10/23 History release 24 hr benzonatate 200 mg capsule 200 mg PO TID PRN cough #60 caps 09/14/22 12/10/23 Rx galcanezumab-gnlm 120 mg/mL 120 mg subcut MONTHLY 01/16/23 12/10/23 History subcutaneous pen injector (Emgality Pen) tramadol 50 mg tablet 50 mg PO TID PRN Pain 01/16/23 12/10/23 History trimethoprim 100 mg tablet 100 mg PO DAILY 01/16/23 12/10/23 History dicyclomine 20 mg tablet See Rx Instructions .Route 01/29/23 12/10/23 Rx .COMPLEX #60 tabs omeprazole 40 mg-sodium 1 cap PO DAILY #30 caps 01/29/23 12/10/23 Rx bicarbonate 1.1 gram capsule (Zegerid) hydrocodone 5 mg-acetaminophen 325 1 - 2 tablet PO Q6H PRN pain #20 03/29/23 12/10/23 Rx mg tablet tabs promethazine 12.5 mg tablet See Rx Instructions .Route 06/11/23 12/10/23 Rx .COMPLEX #90 tabs sucralfate 1 gram tablet See Rx Instructions .Route 06/26/23 12/10/23 Rx .COMPLEX #120 tabs fludrocortisone 0.1 mg tablet 0.1 mg PO BID 30 days #60 tabs 07/02/23 12/10/23 Rx norethindrone (contraceptive) 0.35 0.35 mg PO DAILY 07/02/23 12/10/23 History mg tablet
--- NOTE | 2023-12-10 07:49 | P.PNAN_ITS ---
Anes - Initial Pre Proc Eval Procedure: Operation Date: 12/10/23 08:00 Proposed Procedures p Esophagogastroduodenoscopy - Wilber Gustafson MD Date/Time: 12/10/23 07:49 Surgeon: Wilber Gustafson MD Pre Op Diagnosis: Epigastric pain, GERD without esophagitis, dysphag Patient Data Age: 53 Gender: F Height: 1.6 m Weight: 105.3 kg Last Vital Signs Temp 96.8 F L 12/10/23 06:52 Pulse 79 12/10/23 06:52 Resp 16 12/10/23 06:52 BP 126/75 12/10/23 06:52 Pulse Ox 97 12/10/23 06:52 O2 Del Method Room Air 12/10/23 06:52 Allergies Allergy/AdvReac Type Severity Reaction Status Date / Time aspirin Allergy Intermediate Rash Verified 12/10/23 06:47 azelastine Allergy Intermediate Itching Verified 12/10/23 06:47 ceftriaxone Allergy Intermediate Rash Verified 12/10/23 06:47 fluconazole Allergy Intermediate Rash Verified 12/10/23 06:47 Iodinated Contrast Media Allergy Intermediate Hives Verified 12/10/23 06:47 iodine Allergy Intermediate Hives Verified 12/10/23 06:47 ioversol Allergy Intermediate Hives Verified 12/10/23 06:47 meperidine Allergy Intermediate Rash Verified 12/10/23 06:47 nitrofurantoin Allergy Intermediate Rash Verified 12/10/23 06:47 silicone Allergy Intermediate Swelling Verified 12/10/23 06:47 clindamycin Allergy Other Verified 12/10/23 06:47 Sulfa (Sulfonamide Allergy Rash Verified 12/10/23 06:47 Antibiotics) sulfamethoxazole Allergy Rash Verified 12/10/23 06:47 [From Bactrim] Home Medications Medication Instructions Recorded Confirmed Type clonazepam 0.5 mg tablet 0.5 mg PO Q6H 01/17/19 12/10/23 History lamotrigine 200 mg tablet 200 mg PO BID 01/17/19 12/10/23 History lifitegrast 5 % eye drops in a 1 drop ophthalmic (eye) BID 01/17/19 12/10/23 History dropperette (Xiidra) melatonin 10 mg capsule 10 mg PO HS 01/17/19 12/10/23 History tamsulosin 0.4 mg capsule 0.4 mg PO DAILY 01/17/19 12/10/23 History trazodone 100 mg tablet 100 mg PO QHS 01/17/19 12/10/23 History docusate sodium 100 mg capsule 100 mg PO QAM 09/12/21 12/10/23 History (Colace) polyethylene glycol 3350 17 17 g PO QAM PRN Constipation 09/12/21 12/10/23 History gram/dose oral powder (Miralax) acyclovir 800 mg tablet 800 mg PO BID shingles 12/01/21 12/10/23 History rimegepant 75 mg disintegrating 75 mg PO ONCE PRN Headache 12/01/21 12/10/23 History tablet (Nurtec ODT) lactase 3,000 unit tablet (Lactaid) 3,000 unit PO ONCE PRN Lactose 03/21/22 12/10/23 History Intolerance albuterol sulfate 2.5 mg/3 mL 2.5 mg (3 mL) inhalation Q4-6H PRN 08/21/22 12/10/23 Rx (0.083 %) solution for nebulization shortness of breath or wheezing #90 mL famotidine 20 mg chewable tablet 20 mg PO BID 08/21/22 12/10/23 History terbinafine HCl 250 mg tablet 250 mg PO DAILY 08/21/22 12/10/23 History venlafaxine 75 mg capsule,extended 75 mg PO DAILY 08/21/22 12/10/23 History release 24 hr benzonatate 200 mg capsule 200 mg PO TID PRN cough #60 caps 09/14/22 12/10/23 Rx galcanezumab-gnlm 120 mg/mL 120 mg subcut MONTHLY 01/16/23 12/10/23 History subcutaneous pen injector (Emgality Pen) tramadol 50 mg table
--- NOTE | 2023-12-10 08:00 | PM.HPGS ---
History of Present Illness History of Present Illness Consent: Risks, benefits, and alternatives have been discussed and questions answered. Patient agrees to proceed with procedure. Chief complaint: Epigastric pain, GERD without esophagitis, dysphag Narrative: Joy Oliveira is a 53 year old female here for egd (last one 2022 and normal, also 2021 with normal gastric and duodenal bx). She has?long standing history of GERD on famotidine, carafate and reglan for gastroparesis- confirmed with abnormal GES, psych issues on meds, chronic pancreatitis on zenpen 2, using zofran and promethazine 12.5 PRN for chronic nausea, previous cholecystectomy and also hx of eating disorder with previous g-tube placement for anorexia that was removed ~ 2019 (had bulimia and anorexia- used to dump food using g-tube). Also dysphagia to pills, she had in the past empiric esophageal dilatation. Review of Systems Review of Systems: All systems reviewed & are unremarkable except as noted in HPI and below PMFSH Past Medical History Medical History Abnormal uterine bleeding Adrenal insufficiency CAIT positive Ankle fracture Lt. 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 Dizziness Dysphagia Endometriosis s/p total hysterectomy Feeding by G-tube Refeeding via G-tube, removed 2014 Fibroids Gastroparesis Generalized OA GERD (gastroesophageal reflux disease) Heart murmur Hernia of abdominal wall Herpes zoster High serum parathyroid hormone (PTH) History of angina History of esophageal dilatation History of rectal polyps Hx of corneal abrasion Hx of hiatal hernia Hyperlipidemia Hypotension, chronic IBS (irritable bowel syndrome) Inflammatory arthritis Keratitis Kidney stones Left foot pain Left knee DJD Legal blindness Low vitamin D level Medial meniscus tear Nausea Osteoporosis Other fatigue Patellofemoral chondrosis Patellofemoral pain syndrome Popliteal cyst Right knee DJD Seizures Last seizure 2017 Stomach ulcer w/GIB Stress fracture Synovial cyst of popliteal space [Yuan], left knee Tendinitis of left rotator cuff Type 2 diabetes mellitus without complications Diet-controlled, previously on metformin Upper abdominal pain Vertigo Vitamin D deficiency Zoster ophthalmicus Surgical History Surgical History H/O left wrist surgery carpal tunnel History of ankle surgery Lt. History of appendectomy History of cholecystectomy History of hysterectomy Total hysterectomy History of lithotripsy History of oophorectomy MICHA. History of tonsillectomy Hx of cardiac cath x2. No cardiac stents Family History Family History Sibling Family history of migraine headaches Mother Family history of cardiovascular disease Family history of hypercholesterolemia Hypertension Father Family history of primary malignant neoplasm of liver Family history of liver disease Family history of alcoholism Other Family history of cerebrovascular accident (CVA) Social History Social History Smoking packs per day: 0.5 Smoking cigarettes per day: 10.0 Years smoked: 4 Smoking pack-years: 2.00 Smoking status: Former smoker Tobacco type: cigarettes Second hand tobacco smoke exposure: No Smoking end date: 03/19/93 Alcohol intake: never Substance use: ne
[2023-12-10 08:14] VITALS: BP 143/87; PULSE 78; RESP 27; O2SAT 94
[2023-12-10 08:24] VITALS: BP 136/81; PULSE 76; RESP 18; O2SAT 98
[2023-12-10 08:34] VITALS: BP 138/86; PULSE 75; RESP 19; O2SAT 98
== END 2023-12-10 09:00 | disposition home or self-care (01) ==
PROVIDERS: PCP Internal Medicine; Visit Provider Internal Medicine Gastroenterology
PROC: 0DJ08ZZ Inspection of Upper Intestinal Tract, Via Natural or Artificial Opening Endoscopic (ICD-10-PCS; CPT 43235; principal; 2023-12-10 08:00)
DX: K21.9 Gastro-esophageal reflux disease without esophagitis (principal); E78.5 Hyperlipidemia, unspecified; K58.9 Irritable bowel syndrome, unspecified; E55.9 Vitamin D deficiency, unspecified; M81.0 Age-related osteoporosis without current pathological fracture; E11.9 Type 2 diabetes mellitus without complications; K86.1 Other chronic pancreatitis; E27.40 Unspecified adrenocortical insufficiency; F50.2 Bulimia nervosa; F41.9 Anxiety disorder, unspecified; J45.909 Unspecified asthma, uncomplicated; E53.8 Deficiency of other specified B group vitamins; N80.9 Endometriosis, unspecified; M15.9 Polyosteoarthritis, unspecified; R01.1 Cardiac murmur, unspecified; K31.84 Gastroparesis; F31.9 Bipolar disorder, unspecified; H54.8 Legal blindness, as defined in USA; G89.29 Other chronic pain; M25.512 Pain in left shoulder; R10.11 Right upper quadrant pain; N39.0 Urinary tract infection, site not specified; E66.01 Morbid (severe) obesity due to excess calories; Z68.41 Body mass index [BMI] 40.0-44.9, adult; Z79.51 Long term (current) use of inhaled steroids; Z79.891 Long term (current) use of opiate analgesic; Z79.85 Long-term (current) use of injectable non-insulin antidiabetic drugs; Z98.890 Other specified postprocedural states; Z90.49 Acquired absence of other specified parts of digestive tract; Z95.5 Presence of coronary angioplasty implant and graft; Z87.891 Personal history of nicotine dependence; Z87.442 Personal history of urinary calculi; Z86.010 Personal history of colon polyps; Z80.0 Family history of malignant neoplasm of digestive organs; Z82.49 Family history of ischemic heart disease and other diseases of the circulatory system
CPT/HCPCS: 43450; J2704; J7120

== ENCOUNTER 2023-12-24 11:45 | Outpatient (CLI) | payer BC, MEDICAID, SELFPAY ==
[2023-12-24 12:37] LABS: Albumin Level 4.2 g/dL (3.5-5.1); Anion Gap 10 mmol/L (4-12); Blood Urea Nitrogen 8 mg/dL (7-17); Calcium 9.3 mg/dL (8.4-10.2); Carbon Dioxide 22 mmol/L (22-30); Chloride 108 mmol/L (98-107); Estimated Glomerular Filt Rate > 60; Glucose 101 mg/dL (65-110); Phosphorus 2.5 mg/dL (2.5-4.5); Potassium 4.2 mmol/L (3.4-5.0); Sodium 140 mmol/L (137-145)
[2023-12-24 12:48] LABS: Parathyroid Intact 73.7 pg/mL (14.5-75.2)
[2023-12-24 13:06] LABS: Vitamin D 25 Hydroxy 33.3 ng/mL
[2023-12-29 09:18] LABS: Vitamin D 1,25 (OH)2 Total 79 pg/mL (18-72); Vitamin D2 1,25 (OH)2 <8 pg/mL; Vitamin D3 1,25 (OH)2 79 pg/mL
== END 2023-12-24 11:46 | disposition home or self-care (01) ==
LOC: ANHLAB 11:48
PROVIDERS: PCP Internal Medicine; Visit Provider Internal Medicine Endocrinology, Diabetes & Metabolism
DX: E21.3 Hyperparathyroidism, unspecified (principal); N20.0 Calculus of kidney; E55.9 Vitamin D deficiency, unspecified; M85.80 Other specified disorders of bone density and structure, unspecified site
CPT/HCPCS: 36415; 80069; 82306; 82652; 83970

== ENCOUNTER 2024-01-31 16:49 | Outpatient (CLI) | payer BC, MEDICAID, SELFPAY ==
--- NOTE | ~2024-01-31 | XR_ITS ---
EXAMINATION: XR abdomen/kub 1V DATE: 01/31/2024 17:09 INDICATION: Kidney stones. TECHNIQUE: A supine view of the abdomen on 2 radiographs was obtained. COMPARISON: Abdomen radiograph 08/27/2023, CT abdomen and pelvis 07/16/2023 FINDINGS: There are greater than 10 stones in right kidney measuring up to 5 mm. There are at least 8 stones in left kidney measuring up to 3 mm. There are phleboliths in left pelvis. Surgical clips in the right upper quadrant are likely from cholecystectomy. There are no dilated loops of bowel. IMPRESSION: 1. Bilateral kidney stones. Reviewed, dictated and finalized at location A. IT DRESSER IMPRESSION: 1. Bilateral kidney stones.
== END 2024-01-31 16:50 | disposition home or self-care (01) ==
LOC: ANHIMG 16:53
PROVIDERS: PCP Internal Medicine; Visit Provider Urology
DX: N20.0 Calculus of kidney (principal)
CPT/HCPCS: 74018

== ENCOUNTER 2024-01-31 17:33 | Emergency (ER) | payer BC, MEDICAID, SELFPAY ==
--- NOTE | 2024-01-31 17:43 | ED.SKABFB ---
HPI - Skin/Abscess/Foreign Bdy General Chief complaint: Skin/Abscess/Foreign Body Stated complaint: Rash Time Seen by Provider: 01/31/24 17:50 Source: patient Mode of arrival: ambulatory Limitations: no limitations History of Present Illness HPI narrative: Joy is a 53-year-old female patient presenting to the clinic today with complaints a rash to her left upper cheek and pain around her orbit. She reports that this started yesterday. History of shingles in the past that caused her blindness. Does not feels though is shingles however she does have some sores to the cheek. Patient is on a maintenance dose of 100 mg acyclovir b.i.d.. No fever or chills. Mild swelling noted to the left cheek and around the inferior orbit. History of MRSA infections Related Data Home Medications Medication Instructions Recorded Confirmed clonazepam 0.5 mg tablet 0.5 mg PO Q6H 01/17/19 01/31/24 lamotrigine 200 mg tablet 200 mg PO BID 01/17/19 01/31/24 lifitegrast 5 % eye drops in a 1 drop ophthalmic (eye) BID 01/17/19 01/31/24 dropperette (Xiidra) melatonin 10 mg capsule 10 mg PO HS 01/17/19 01/31/24 tamsulosin 0.4 mg capsule 0.4 mg PO DAILY 01/17/19 01/31/24 trazodone 100 mg tablet 100 mg PO QHS 01/17/19 01/31/24 docusate sodium 100 mg capsule 100 mg PO QAM 09/12/21 01/31/24 (Colace) polyethylene glycol 3350 17 17 g PO QAM PRN Constipation 09/12/21 01/31/24 gram/dose oral powder (Miralax) acyclovir 800 mg tablet 800 mg PO BID shingles 12/01/21 01/31/24 rimegepant 75 mg disintegrating 75 mg PO ONCE PRN Headache 12/01/21 01/31/24 tablet (Nurtec ODT) lactase 3,000 unit tablet (Lactaid) 3,000 unit PO ONCE PRN Lactose 03/21/22 01/31/24 Intolerance famotidine 20 mg chewable tablet 20 mg PO BID 08/21/22 01/31/24 terbinafine HCl 250 mg tablet 250 mg PO DAILY 08/21/22 01/31/24 venlafaxine 75 mg capsule,extended 75 mg PO DAILY 08/21/22 01/31/24 release 24 hr galcanezumab-gnlm 120 mg/mL 120 mg subcut MONTHLY 01/16/23 01/31/24 subcutaneous pen injector (Emgality Pen) tramadol 50 mg tablet 50 mg PO TID PRN Pain 01/16/23 01/31/24 trimethoprim 100 mg tablet 100 mg PO DAILY 01/16/23 01/31/24 norethindrone (contraceptive) 0.35 0.35 mg PO DAILY 07/02/23 01/31/24 mg tablet cariprazine 3 mg capsule (Vraylar) 3 mg PO DAILY 08/20/23 01/31/24 hpqsrr-ebxmgcfd-ehxyesa 2 cap PO QID chronic pancreatitis 11/20/23 01/31/24 10,000-32,000-42,000 unit capsule,delayed rel calcium citrate 200 mg PO DAILY 12/03/23 01/31/24 sertraline 100 mg tablet 100 mg PO DAILY 12/03/23 01/31/24 sertraline 50 mg tablet 50 mg PO DAILY 12/03/23 01/31/24 Allergies Allergy/AdvReac Type Severity Reaction Status Date / Time aspirin Allergy Intermediate Rash Verified 01/31/24 17:47 azelastine Allergy Intermediate Itching Verified 01/31/24 17:47 ceftriaxone Allergy Intermediate Rash Verified 01/31/24 17:47 fluconazole Allergy Intermediate Rash Verified 01/31/24 17:47 Iodinated Contrast Media Allergy Intermediate Hives Verified 01/31/24 17:47 iodine Allergy Intermediate Hives Verified 01/31/24 17:47 ioversol Allergy Intermediate Hives Verified 01/31/24 17:47 meperidine Allergy Intermediate Rash Verified 01/31/24 17:47 nitrofurantoin Allergy Intermediate Rash Verified 01/31/24 17:47 silicone Allergy Intermediate Swelling Verified 01/31/24 17:47 clindamycin Allergy Other Verified 01/31/24 17:47 Sulfa (Sulfonamide Allergy Rash Verified 01/31/24 17:47 Antibiotics) sulfamethoxazole Allergy Rash Verified 01/31/24 17:47 [From Bactrim] Review of Systems Review of Systems: Pertinent positives per HPI. Patient denies any fever, chills, headache, visual changes, dizziness, cough, runny nose, sore throat, shortness of breath, chest pain, palpitations, nausea, vomiting, diarrhea, constipation, abdominal pain, or any urinary issues. [facility] Past Medical History Medical History Abnormal uterine bleeding Adrenal insufficiency CAIT positive Ankle fracture Lt. 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 Dizziness Dysphagia Endometriosis s/p total hysterectomy Feeding by G-tube Refeeding via G-tube, removed 2014 Fibroids Gastroparesis Generalized OA GERD (gastroesophageal reflux disease) Heart murmur Hernia of abdominal wall Herpes zoster High serum parathyroid hormone (PTH) History of angina History of esophageal dilatation History of rectal polyps Hx of corneal abrasion Hx of hiatal hernia Hyperlipidemia Hypotension, chronic IBS (irritable bowel syndrome) Inflammatory arthritis Keratitis Kidney stones Left foot pain Left knee DJD Legal blindness Low vitamin D level Medial meniscus tear Nausea Osteoporosis Other fatigue Patellofemoral chondrosis Patellofemoral pain syndrome Popliteal cyst Right knee DJD Seizures Last seizure 2017 Stomach ulcer w/GIB Stress fracture Synovial cyst of popliteal space [Yuan], left knee Tendinitis of left rotator cuff Type 2 diabetes mellitus without complications Diet-controlled, previously on metformin Upper abdominal pain Vertigo Vitamin D deficiency Zoster ophthalmicus Surgical History Surgical History H/O left wrist surgery carpal tunnel History of ankle surgery Lt. History of appendectomy History of cholecystectomy History of hysterectomy Total hysterectomy History of lithotripsy History of oophorectomy MICHA. History of tonsillectomy Hx of cardiac cath x2. No cardiac stents Family History Family History Sibling Family history of migraine headaches Mother Family history of cardiovascular disease Family history of hypercholesterolemia Hypertension Father Family history of primary malignant neoplasm of liver Family history of liver disease Family history of alcoholism Other Family history of cerebrovascular accident (CVA) Social History Social History Smoking packs per day: 0.5 Smoking cigarettes per day: 10.0 Years smoked: 4 Smoking pack-years: 2.00 Smoking status: Former smoker Tobacco type: cigarettes Second hand tobacco smoke exposure: No Smoking end date: 03/19/93 Alcohol intake: never Substance use: never Substance use type: does not use Lack of Transportation: No Lack of Food: Never True Current Housing: I Have Housing Concerned About Future Housing: No Difficulty Paying Gas/Electric Bills: No Difficulty Paying for Meds: No Currently Unemployed: No Education: Decline to Answer Difficulty w/ Childcare or Family Care: No Living arrangements: with roommate(s) Gender identity (if verbalized by the patient): Female Spiritual care concerns: No Agree to blood products: Yes Comments At the time of my signature, I reviewed and agree with the nursing past medical, surgical, social, and family history. There is no relevant family history pertinent to the patient complaint. Exam Narrative: General: Well-developed, well nourished, in no apparent distress Head: Normocephalic, swelling to the left cheek with sores with some yellow crusting-tenderness to palpation over this area with mild erythema and induration-no vesicular lesions present Cardio: Regular rate and rhythm, s1 and s2 normal, no murmur appreciated. Resp: Clear to auscultation bilaterally, no rhonchi, rales, wheezing or rubs. Integumentary: [place], warm, and dry Course Course Emergency Course: Portions of this record may have been created with voice recognition software. Level of Care: Express Care Visit Vital Signs Vital signs: Vital signs reviewed MDM - Skin/Abscess/Foreign Bdy MDM Narrative Medical decision making narrative: At the time of visit patient is resting comfortably on the exam table. Patient appears to be nontoxic. Plan: I suspect patient has acute skin infection as well as some periorbital swelling. Will place the patient on Augmentin, doxycycline, and mupirocin cream. Patient does have history of MRSA so that is why we are putting her on the doxycycline as she has allergies to clindamycin and sulfa for better coverage. Supportive measures were discussed with the patient and they voiced understanding discharge instructions and agrees to treatment plan. Return precautions reviewed Differential Diagnosis Differential diagnosis: Likely abscess of skin or subcutaneous tissue, viral exanthem, dermatophytosis, herpes zoster, allergic reaction to drug, cellulitis, eczema, insect bites, impetigo and contact dermatitis Discharge Plan Discharge Clinical Impression: Bacterial skin infection, Periorbital swelling Patient Disposition: Home, Self-Care Condition: Stable Instructions: Antibiotic Form, Periorbital Cellulitis (ED) Additional Instructions: Continue medications as prescribed Start Augmentin, mupirocin cream, and doxycycline as prescribed May apply cool compress to the affected area to help alleviate pain May take Tylenol/Motrin as needed for pain Follow-up with your primary care doctor 2-3 for recheck Go to the emergency room if symptoms worsen-increase in pain, increase in swelling, fever, chills, body aches, confusion, weakness, lethargy, or any other concerning symptoms Prescriptions: New amoxicillin-pot clavulanate 875-125 mg tablet 1 tablet PO Q12H 10 Days Qty: 20 0RF doxycycline monohydrate 100 mg capsule 100 mg PO BID 10 Days Qty: 20 0RF mupirocin 2 % ointment 1 applic topical BID 7 Days Qty: 22 0RF No Action acyclovir 800 mg tablet 800 mg PO BID docusate sodium [Colace] 100 mg capsule 100 mg PO QAM polyethylene glycol 3350 [Miralax] 17 gram/dose powder 17 g PO QAM PRN (Reason: Constipation) Nurtec ODT 75 mg tablet,disintegrating 75 mg PO ONCE PRN (Reason: Headache) Rx Instructions: as a single dose terbinafine HCl 250 mg tablet 250 mg PO DAILY venlafaxine 75 mg capsule,extended release 24hr 75 mg PO DAILY famotidine 20 mg tablet,chewable 20 mg PO BID albuterol sulfate 2.5 mg /3 mL (0.083 %) solution for nebulization 2.5 mg inhalation Q4-6H PRN (Reason: shortness of breath or wheezing) Qty: 90 2RF fludrocortisone 0.1 mg tablet 0.1 mg PO BID 30 Days Qty: 60 6RF cholecalciferol (vitamin D3) 1,250 mcg (50,000 unit) capsule See Rx Instructions .ROUTE .COMPLEX Qty: 14 5RF Dose Instruction: TAKE 1 CAPSULE BY MOUTH TWICE A WEEK ON MONDAYS AND THURSDAYS Rx Instructions: TAKE 1 CAPSULE BY MOUTH THRICE A WEEK ON MONDAYS, sunday AND SUNDAY calcitriol 0.25 mcg capsule See Rx Instructions .ROUTE .COMPLEX Qty: 9 5RF Dose Instruction: TAKE 1 CAPSULE BY MOUTH 3 TIMES A WEEK Rx Instructions: TAKE 1 CAPSULE BY MOUTH 2 TIMES A WEEK dicyclomine 20 mg tablet See Rx Instructions .ROUTE .COMPLEX Qty: 60 5RF Dose Instruction: TAKE 1 TABLET BY MOUTH THREE TIMES DAILY NEEDED FOR ABDOMINAL DISCOMFORT Rx Instructions: TAKE 1 TABLET BY MOUTH THREE TIMES DAILY NEEDED FOR ABDOMINAL DISCOMFORT omeprazole-sodium bicarbonate [Zegerid] 40-1.1 mg-gram capsule 1 cap PO DAILY Qty: 30 6RF trimethoprim 100 mg tablet 100 mg PO DAILY norethindrone (contraceptive) 0.35 mg tablet 0.35 mg PO DAILY Vraylar 3 mg capsule 3 mg PO DAILY sertraline 50 mg tablet 50 mg PO DAILY sertraline 100 mg tablet 100 mg PO DAILY calcium citrate 200 mg (950 mg) tablet 200 mg PO DAILY lactase [Lactaid] 3,000 unit Tablet 3,000 unit PO ONCE PRN (Reason: Lactose Intolerance) Rx Instructions: administer with meals and/or snacks hydrocodone-acetaminophen 5-325 mg tablet 1 - 2 tablet PO Q6H PRN (Reason: pain) Qty: 20 0RF lusleu-qyfaafzm-qsrzuqu 10,000-32,000 -42,000 unit capsule,delayed release(DR/EC) 2 cap PO QID Rx Instructions: administer with meals and/or snacks and at bedtime tramadol 50 mg tablet 50 mg PO TID PRN (Reason: Pain) Emgality Pen 120 mg/mL pen injector 120 mg SUBCUT MONTHLY Patient Comments: PT TAKES ON THE OF THE clonazepam 0.5 mg tablet 0.5 mg PO Q6H lamotrigine 200 mg tablet 200 mg PO BID melatonin 10 mg capsule 10 mg PO HS tamsulosin 0.4 mg capsule 0.4 mg PO DAILY trazodone 100 mg tablet 100 mg PO QHS Patient Comments: PT TAKES AT NIGHT Xiidra 5 % dropperette 1 drop EACH EYE BID benzonatate 200 mg capsule 200 mg PO TID PRN (Reason: cough) Qty: 60 0RF promethazine 12.5 mg tablet See Rx Instructions .ROUTE .COMPLEX Qty: 90 5RF Dose Instruction: TAKE 1 TABLET BY MOUTH EVERY 6 HOURS NEEDED FOR NAUSEA AND VOMITING. MAX DOSE OF 4 TABLETS DAILY Rx Instructions: TAKE 1 TABLET BY MOUTH EVERY 6 HOURS NEEDED FOR NAUSEA AND VOMITING. MAX DOSE OF 4 TABLETS DAILY sucralfate 1 gram tablet See Rx Instructions .ROUTE .COMPLEX Qty: 120 6RF Dose Instruction: TAKE 1 TABLET(1 GRAM) BY MOUTH FOUR TIMES DAILY Rx Instructions: TAKE 1 TABLET(1 GRAM) BY MOUTH FOUR TIMES DAILY montelukast [Singulair] 10 mg tablet 10 mg PO QHS Qty: 30 5RF ezetimibe [Zetia] 10 mg tablet 10 mg PO DAILY Qty: 30 5RF rosuvastatin [Crestor] 40 mg tablet 40 mg PO DAILY Qty: 90 1RF Trelegy Ellipta 200-62.5-25 mcg blister with device 1 inh inhalation DAILY Qty: 60 5RF Rx Instructions: Rinse mouth and spit after each use Trulance 3 mg tablet See Rx Instructions .ROUTE .COMPLEX Qty: 90 3RF Dose Instruction: TAKE 1 TABLET BY MOUTH DAILY Rx Instructions: TAKE 1 TABLET BY MOUTH DAILY metoclopramide HCl 5 mg/5 mL solution See Rx Instructions .ROUTE .COMPLEX Qty: 1200 6RF Dose Instruction: TAKE 20 ML(20 MG) BY MOUTH TWICE DAILY Rx Instructions: TAKE 20 ML(20 MG) BY MOUTH TWICE DAILY ondansetron 8 mg tablet,disintegrating See Rx Instructions .ROUTE .COMPLEX Qty: 90 11RF Dose Instruction: DISSOLVE 1 TABLET ON THE TONGUE EVERY 8 HOURS NEEDED FOR NAUSEA OR VOMITING Rx Instructions: DISSOLVE 1 TABLET ON THE TONGUE EVERY 8 HOURS NEEDED FOR NAUSEA OR VOMITING Airsupra 90-80 mcg/actuation HFA aerosol inhaler See Rx Instructions .ROUTE .COMPLEX Qty: 10.7 3RF Dose Instruction: INAHLE 2 PUFFS 6 TIMES PER DAY NEEDED FOR SHORTNESS OF BREATH Rx Instructions: INAHLE 2 PUFFS 6 TIMES PER DAY NEEDED FOR SHORTNESS OF BREATH nystatin 100,000 unit/gram powder 1 applic topical TID Qty: 60 2RF fluticasone propionate [Flonase Allergy Relief] 50 mcg/actuation spray,suspension 2 spray intranasal DAILY PRN (Reason: Allergy Symptoms) Qty: 16 5RF Rx Instructions: administer into each nostril Follow-up/Referrals: PHYSICIAN,BUSINESS OFFICE TECHNOLOGY INSTRUCTOR [Primary Care Provider] - Time of Disposition: 17:58 Quality NIHSS Nursing Documentation ED NIHSS nursing documentation: reviewed/agree
[2024-01-31 17:48] VITALS: BP 129/62; PULSE 90; RESP 16; TEMP 36.5; O2SAT 96
[2024-01-31 17:49] VITALS: BP 129/62; PULSE 90; RESP 16; TEMP 36.5; O2SAT 96
== END 2024-01-31 18:06 | disposition home or self-care (01) ==
PROVIDERS: Emergency Provider Nurse Practitioner Family
DX: R22.0 Localized swelling, mass and lump, head (principal); L08.9 Local infection of the skin and subcutaneous tissue, unspecified; B96.89 Other specified bacterial agents as the cause of diseases classified elsewhere; E78.5 Hyperlipidemia, unspecified; Z79.899 Other long term (current) drug therapy; Z79.891 Long term (current) use of opiate analgesic; Z87.891 Personal history of nicotine dependence
CPT/HCPCS: 99213; G0463

== ENCOUNTER 2024-02-25 07:33 | Outpatient (CLI) | payer BC, MEDICAID, SELFPAY ==
--- NOTE | ~2024-02-25 | MR_ITS ---
EXAMINATION: MR ankle LT wo con DATE: 02/25/2024 08:18 INDICATION: Left ankle pain TECHNIQUE: Magnetic resonance imaging (MRI) of the left ankle was performed without intravenous contr ast. Sequences included sagittal, coronal, and axial proton-density weighted fast spin echo without a nd with fat saturation. COMPARISON: None. FINDINGS: Medial ankle ligaments: Deep and superficial deltoid ligaments as well as the spring ligament are normal. Lateral ankle ligaments: The anterior and posterior inferior tibiofibular ligaments are normal. The anterior talofibular, calc aneofibular and posterior talofibular ligaments are normal. Tendons: Small enthesophyte at the calcaneal insertion of the otherwise normal Achilles tendon.. The peroneus longus tendon is normal. There is a longitudinal split tear and mild tendinopathy of the peroneus aydee vis tendon. The tibialis anterior and extensor hallucis longus and extensor digitorum longus tendons are normal. The tibialis posterior, flexor digitorum longus and flexor hallucis longus tendons are no rmal. Plantar fascia: Small enthesophyte at the calcaneal origin of the otherwise normal-appearing plantar aponeurosis. Bones/other: Bone alignment is normal. No fracture or pathologic marrow replacing process. Mild osteoarthritis at the talofibular articulation of the ankle with partial-thickness cartilage loss resulting in mild non uniform joint space narrowing along with tiny marginal osteophytes and subarticular edema-like and cy stlike changes along the medial side of the tip of the lateral malleolus. There is additional minimal to mild polyarticular osteoarthritis in the mid and hindfoot without additional degenerative subarti cular changes. The sinus Tarsi is unremarkable with no abnormal fluid signal or soft tissue density s inus Tarsi. There is scarring at the posterior medial aspect of the ankle including along the flexor retinaculum overlying the tarsal tunnel suggesting prior tarsal tunnel release Fluid: Physiologic amount fluid in the joint spaces. There is a 9 x 9 x 4 mm ganglion cyst along the dorsal neck of the talus arising from the talonavicular joint. IMPRESSION: 1. Mild tendinopathy and longitudinal split tear of the peroneus brevis tendon. 2. Mild osteoarthritis at the left ankle with high-grade chondromalacia with subarticular edema-like and cystlike change along the articular surface of the and lateral malleolus. Reviewed, dictated and finalized at location A. RAL SCIENCES DEPARTMENT CHAIR IMPRESSION: 1. Mild tendinopathy and longitudinal split tear of the peroneus brevis tendon. 2. Mild osteoarthritis at the left ankle with high-grade chondromalacia with desai barticular edema-like and cystlike change along the articular surface of the an d lateral malleolus.
== END 2024-02-25 07:34 | disposition home or self-care (01) ==
PROVIDERS: Visit Provider Podiatrist Foot & Ankle Surgery
DX: S86.312A Strain of muscle(s) and tendon(s) of peroneal muscle group at lower leg level, left leg, initial encounter (principal); X58.XXXA Exposure to other specified factors, initial encounter; M19.072 Primary osteoarthritis, left ankle and foot; M94.272 Chondromalacia, left ankle and joints of left foot
CPT/HCPCS: 73721

== ENCOUNTER 2024-03-10 10:01 | Outpatient (CLI) | payer BC, MEDICAID, SELFPAY ==
[2024-03-10 11:23] LABS: Vitamin D 25 Hydroxy 23.7 ng/mL
[2024-03-10 12:46] LABS: Alanine Aminotransferase 17 U/L (6-35); Albumin Level 4.1 g/dL (3.5-5.1); Alkaline Phosphatase 112 U/L (38-126); Anion Gap 5 mmol/L (4-12); Aspartate Amino Transferase 25 U/L (14-36); Bilirubin,Total 0.4 mg/dL (0.2-1.3); Blood Urea Nitrogen 8 mg/dL (7-17); Calcium 9.3 mg/dL (8.4-10.2); Carbon Dioxide 22 mmol/L (22-30); Chloride 111 mmol/L (98-107); Cholesterol 239 mg/dL (0-200); Estimated Glomerular Filt Rate > 60; Glucose 88 mg/dL (65-110); HDL Direct 40 mg/dL; Potassium 4.1 mmol/L (3.4-5.0); Sodium 138 mmol/L (137-145); Triglycerides 241 mg/dL (<150)
[2024-03-10 12:57] LABS: LDL Cholesterol Direct 133 mg/dL
== END 2024-03-10 10:02 | disposition home or self-care (01) ==
LOC: ANHLAB 10:01
PROVIDERS: PCP Internal Medicine; Visit Provider Internal Medicine
DX: E55.9 Vitamin D deficiency, unspecified (principal); E78.5 Hyperlipidemia, unspecified; E21.3 Hyperparathyroidism, unspecified; E11.9 Type 2 diabetes mellitus without complications; E53.8 Deficiency of other specified B group vitamins
CPT/HCPCS: 36415; 80053; 80061; 82306; 82607

== ENCOUNTER 2024-09-08 09:21 | Outpatient (CLI) | payer BC, MEDICAID, SELFPAY ==
[2024-09-08 10:17] LABS: Anion Gap 8 mmol/L (4-12); Blood Urea Nitrogen 6 mg/dL (7-17); Carbon Dioxide 22 mmol/L (22-30); Chloride 109 mmol/L (98-107); Estimated Glomerular Filt Rate > 60; Glucose 100 mg/dL (65-110); Phosphorus 2.8 mg/dL (2.5-4.5); Sodium 139 mmol/L (137-145)
[2024-09-08 10:29] LABS: Parathyroid Intact 146.9 pg/mL (14.5-75.2)
[2024-09-08 10:39] LABS: Vitamin D 25 Hydroxy 18.3 ng/mL
== END 2024-09-08 09:22 | disposition home or self-care (01) ==
PROVIDERS: PCP Internal Medicine; Visit Provider Internal Medicine Endocrinology, Diabetes & Metabolism
DX: M85.80 Other specified disorders of bone density and structure, unspecified site (principal); R79.89 Other specified abnormal findings of blood chemistry; E55.9 Vitamin D deficiency, unspecified; I95.1 Orthostatic hypotension; K76.0 Fatty (change of) liver, not elsewhere classified
CPT/HCPCS: 36415; 80069; 82306; 83970

== ENCOUNTER 2024-09-17 08:12 | Outpatient (CLI) | payer BC, MEDICAID, SELFPAY ==
--- OUTSIDE RECORDS SUMMARY | 2024-09-17 08:16 | XMS_ITS | Patient Health Record ---
Author Organization [facility] [employer] [facility] Address [address] [place] [address] Care Team Providers Care Manager Administrative Name Role Phone Luc Munoz DO Primary Care Provider UnavailCandice Chirinos Unavailable [phone] Lis Rodríguez Unavailable [phone] Allergies Allergen (clinical drug ingredient) Drug/Non Drug Allergy documented on EMR Reaction Allergy Type Onset Date Status Iodinated contrast media (substance) IODINATED CONTRAST MEDIA (uncoded) Unknown Allergy 07/30/2023 Active sulfamethoxazole / trimethoprim Bactrim Unknown Drug Allergy 07/30/2023 Active meperidine Demerol Unknown Drug Allergy 07/30/2023 Activ e Rocephin Unknown Drug Allergy 07/30/2023 Active Results Component Value Reference Range Notes UDT Reviewed date:11/12/2023 08:19:11 AM Interpretation: Performing Lab: Notes/Report: THC N 0 - 50 ng/ml Cocaine N 0 - 300 ng/ml Amphetamine N 0 - 1000 ng/ml Buprenorphine (BUP) N 0 - 10 ng/ml Secobarbital (Bar) N 0 - 300 ng/ml Oxazepam (BZO) P 0 - 300 ng/ml 0-ssoslhxfbm-4,2-bsalseml-4,3-diphenylpyrrolidine (GHANSHYAM P) N 0 - 300 ng/ml Methamphetamine (MET) N 0 - 1000 ng/ml Methylenedioxymethamphetamine (MDMA) N 0 - 500 ng/ml Morphine (MOP 300/UOE6222) N 0 - 300 ng/ml Methadone (MTD) N 0 - 300 ng/ml Phencyclidine (PCP) N 0 - 25 ng/ml Nortriptyline (TCA) N 0 - 1000 ng/ml Oxycodone N 0 - 300 ng/ml x N 0 - 300 ng/ml Reason For Referral No Information Medications Medication SIG (Take, Route, Frequency, Duration) Notes Start Date End Date Status Fludrocortisone Acetate 0.1 MG Oral 07/30/2023 Active PreviDent 5000 Plus 1.1 % Dental 07/30/2023 Active Xiidra 5 % Ophthalmic 07/30/2023 Active HYDROcodone-Acetamino phen 5-325 MG Oral 07/30/2023 Active Montelukast Sodium 10 MG Oral 07/30/2023 Active Rosuvastatin Calcium 40 MG Oral 07/30/2023 Active Diclofenac Sodium 0.1 % Ophthalmic 07/30/2023 Active Ergocalciferol 1.25 MG (06299 UT) Oral 07/30/2023 Active Zenpep 10,000-32,000 -42,000 unit ORAL *Pick strength-form from [facility] for eRX* 07/30/2023 Active Jublia 10 % External 07/30/2023 Active Terbinafine HCl 250 MG Oral 07/30/2023 Active Nurtec 75 MG Oral *Reorder from [facility] for eRx and Interaction Alerts* 07/30/2023 Active Fluticasone Propionate Diskus 50 MCG/ACT Inhalation *Reorder from [facility] for eRx and Interaction Alerts* 07/30/2023 Active Advair Diskus 250-50 MCG/DOSE Inhalation 07/30/2023 Active Mupirocin 2% External 07/30/2023 Active Premarin 1.25 MG Oral 07/30/2023 Ac tive Dicyclomine HCl 20 MG Oral 07/30/2023 Active Tolnaftate 1 % External 07/30/2023 Acti ve Melatonin 10 mg Oral 07/30/2023 Act ken Ondansetron 8 MG Oral 07/30/2023 Ac tive traMADol HCl 50 MG Oral 07/30/2023 Active EMGALITY PEN 120 MG/ML SUBCUTANEOUS PEN INJECTOR *Reorder from [facility] for eRx and Interaction Alerts* 07/30/2023 Active Meclizine HCl 12.5 MG Oral 07/30/2023 Active Linzess 290 MCG Oral 07/30/2023 Act ken Cholecalciferol 1.25 MG (34522 UT) Oral 07/30/2023 Active Norethindrone 0.35 MG Oral 07/30/2023 Active Nystatin-Triamcinolon e 158693-4.1 UNIT/GM External 07/30/2023 Active Sodium Fluoride 1.1 % Dental Paste *Reorder from [facility] for eRx and Interaction Alerts* 07/30/2023 Active lamoTRIgine 200 MG 1 tablet Oral twice a day; Duration: 30 days Active Ezetimibe 10 MG Oral 07/30/2023 Act ken Vraylar 3 MG 1 capsule Oral Once a day; Duration: 90 days PA approved 03/10/24-04/09/25 04/09/2024 Active Nystop 945741 UNIT/GM External 07/30/2023 Active Benzonatate 200 MG Oral 07/30/2023 Not-Taking Trimethoprim 100 MG Oral 07/30/2023 Active Vraylar 3 mg take one capsule daily Oral daily; Duration: 30 days Active Clotrimazole-Betameth asone 1-0.05 % External 07/30/2023 Active Sertraline HCl 100 MG 1 tablet Oral Once a day; Duration: 30 days Active Tamsulosin HCl 0.4 MG Oral 07/30/2023 Active Trulance 3 MG Oral 07/30/2023 Activ e Azelastine HCl 0.05 % Ophthalmic 07/30/2023 Active Sucralfate 1 GM Oral 07/30/2023 Act ken Sertraline HCl 50 MG 1 tablet Oral Once a day; Duration: 30 days Active Venlafaxine HCl ER 75 MG 1 capsule in the morning Oral Once a day; Duration: 30 days Active clonazePAM 0.5 MG 1 tablet Oral four times a day; Duration: 30 days 08/18/2024 Active lamoTRIgine 200 MG 1 tablet Oral twice a day; Duration: 30 days Active Bepreve 1.5 % Ophthalmic 07/30/2023 Acti ve traZODone HCl 100 MG 1 tablet Oral bedtime; Duration: 30 days Active Clobetasol Propionate 0.05% External 07/30/2023 Active Acyclovir 800 MG Oral 07/30/2023 Ac tive Metoclopramide HCl 5 MG/5ML Oral 07/30/2023 Active Phenazopyridine HCl 100 MG Oral 07/30/2023 Active Albuterol Sulfate (2.5 MG/3ML) 0.083% Inhalation 07/30/2023 Active Calcitriol 0.25 MCG Oral 07/30/2023 Active Ipratropium [place] 0.06 % Nasal 07/30/2023 Active metroNIDAZOLE 500 MG Oral 07/30/2023 Active Promethazine HCl 12.5 MG Oral 07/30/2023 Active Immunizations Vaccine Route Administration Date Status Comme nts Influenza, seasonal, injecta ble, preservative free, 3 yrs and above Unknown 12/17/2001 Administered Influenza, unspecified formulation Unknown 08/16/2011 A dministered Novel [id number], preservative free Unknown 05/08/2014 Administered Pfizer [employer] Covid-19 Vac cine 2nd dose Unknown 06/01/2020 Administered Pfizer [employer] Covid-19 Vac cine 2nd dose Unknown 06/22/2020 Administered Pfizer [employer] Covid-19 Vac cine 2nd dose Unknown 02/27/2021 Administered Pfizer-Biontech Covid-19 Vac cine 1st dose Unknown 11/06/2021 Administered Td (adult), adsorbed Unknown 03/19/2001 Administered Tdap Unknown 03/19/2008 Administered Social History Sex Assigned At : Social History Observation Description Sex Assigned At Female Problems Problem Type SNOMED Code ICD Code Onset Dates Problem Status W/U Status Risk Notes Problem Bipolar disorder (16786597) Other bipolar disorder (F31.89) 07/30/19 Active confirmed Problem Bipolar disorder (83385606) Bipolar disorder, unspecified (F31.9) Active confirmed Problem Generalized anxiety disorder (31586297) Generalized anxiety disorder (F41.1) 07/30/19 Active confirmed Problem Posttraumatic stress disorder (49187636) Post-traumatic stress disorder, chronic (F43.12) 07/30/19 Active confirmed Problem Primary insomnia (7306603) Primary insomnia (F51.01) 07/30/19 Active confirmed Problem Drug-induced tardive dystonia (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) Drug induced subacute dyskinesia (G24.01) 07/30/19 Active confirmed Problem Screening for cardiovascular system disease (658002874) Encounter for screening for cardiovascular disorders (Z13.6) Active confirmed Problem Long-term current use of drug therapy (587851017) 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) 07/30/19 Active confirmed Problem Psychogenic skin symptoms (139783170) Excoriation (skin-picking) disorder (F42.4) 07/30/19 Active confirmed Problem Depression Screening (201154034) Encounter for screening for depression (Z13.31) Active confirmed Problem Bipolar disorder (61506898) Depressed bipolar disorder (F31.9) Active confirmed Problem Dry mouth (36640274) Dry mouth (R68.2) Active confirmed Vital Signs Heart Rate 83 /min 08/18/2024 Respiratory Rate 16 /min 08/18/2024 Height-cm 160.02 cm 08/18/2024 Blood pressure diastolic 62 mm Hg 08/18/2024 Weight-kg 110.68 kg 08/18/2024 Height 63.00 in 08/18/2024 Blood pressure systolic 122 mm Hg 08/18/2024 Weight 244.0 lbs 08/18/2024 BMI 43.22 kg/m2 08/18/2024 Encounters Encounter Location Date Provider Diagnosis [facility] [employer] [place] [id number] [facility] [address] [address] 09/24/2023 Lis Hemann Post-traumatic stres s disorder, chronic F43.12 ; Generalized anxiety disorder F41.1 ; Excoriation (skin-picking) disorder F42.4 and Other bipolar disorder F31.89 [facility] [employer] [address] 10/15/2023 Lis Hemann Post-traumatic stres s disorder, chronic F43.12 ; Excoriation (skin-picking) disorder F42.4 ; Other bipolar disorder F31.89 and Generalized anxiety disorder F41.1 [facility] [employer] [address] [address] 10/29/2023 Lis Hemann Post-traumatic stres s disorder, chronic F43.12 ; Excoriation (skin-picking) disorder F42.4 ; Other bipolar disorder F31.89 and Generalized anxiety disorder F41.1 [facility] [employer] [place] [address] [facility] [address] [address] 11/12/2023 Candice Machado Generalized anxiety disorder F41.1 ; Depressed bipolar disorder F31.9 ; Primary insomnia F51.01 ; Post-traumatic stress disorder, chronic F43.12 ; Other tank terminal gauger (current) drug therapy Z79.899 ; Excoriation (skin-picking) disorder F42.4 and Drug induced subacute dyskinesia G24.01 [place] [address] [address] 11/12/2023 Lis Hemann Post-traumatic stres s disorder, chronic F43.12 ; Excoriation (skin-picking) disorder F42.4 and Generalized anxiety disorder F41.1 [place] [address] [facility] [address] [place] [address] 12/03/2023 Lis Hemann Post-traumatic stres s disorder, chronic F43.12 ; Excoriation (skin-picking) disorder F42.4 and Generalized anxiety disorder F41.1 [place] [address] [address] 01/14/2024 Lis Hemann Post-traumatic stres s disorder, chronic F43.12 ; Bipolar disorder, unspecified F31.9 and Excoriation (skin-picking) disorder F42.4 [place] [address] [address] 01/21/2024 Lis Hemann Post-traumatic stres s disorder, chronic F43.12 ; Depressed bipolar disorder F31.9 ; Generalized anxiety disorder F41.1 and Excoriation (skin-picking) disorder F42.4 [place] [address] [address] 02/25/2024 Lis Hemann Post-traumatic stres s disorder, chronic F43.12 ; Depressed bipolar disorder F31.9 ; Generalized anxiety disorder F41.1 and Excoriation (skin-picking) disorder F42.4 [facility] [address] [address] 02/28/2024 Candice Machado Generalized anxiety disorder F41.1 ; Depressed bipolar disorder F31.9 ; Primary insomnia F51.01 ; Post-traumatic stress disorder, chronic F43.12 ; Other detention (current) drug therapy Z79.899 ; Excoriation (skin-picking) disorder F42.4 ; Drug induced subacute dyskinesia G24.01 ; Dry mouth R68.2 and Hypertension, unspecified type 401.9 [place] [address] [address] 03/03/2024 Lis Hemann Post-traumatic stres s disorder, chronic F43.12 ; Depressed bipolar disorder F31.9 ; Generalized anxiety disorder F41.1 and Excoriation (skin-picking) disorder F42.[address] [address] 04/07/2024 Lis Hemann Post-traumatic stres s disorder, chronic F43.12 ; Depressed bipolar disorder F31.9 ; Generalized anxiety disorder F41.1 and Excoriation (skin-picking) disorder F42.[address] [address] 05/26/2024 Candice Machado Generalized anxiety disorder F41.1 ; Depressed bipolar disorder F31.9 ; Primary insomnia F51.01 ; Post-traumatic stress disorder, chronic F43.12 ; Other detention (current) drug therapy Z79.899 ; Excoriation (skin-picking) disorder F42.4 ; Drug induced subacute dyskinesia G24.01 and Dry mouth R68.[address] [address] 06/23/2024 Lis Hemann Post-traumatic stres s disorder, chronic F43.12 ; Depressed bipolar disorder F31.9 ; Generalized anxiety disorder F41.1 and Excoriation (skin-picking) disorder F42.4 [place] [address] [address] 06/30/2024 Lis Hemann Post-traumatic stres s disorder, chronic F43.12 ; Depressed bipolar disorder F31.9 ; Generalized anxiety disorder F41.1 and Excoriation (skin-picking) disorder F42.4 [place] [address] [address] 07/28/2024 Lis Hemann Post-traumatic stres s disorder, chronic F43.12 ; Generalized anxiety disorder F41.1 and Depressed bipolar disorder F31.9 [place] [address] [facility] [address] [place] [address] 08/18/2024 Candice Machado Encounter for screen ing for depression Z13.31 ; Depressed bipolar disorder F31.9 ; Encounter for screening for cardiovascular disorders Z13.6 ; Generalized anxiety disorder F41.1 ; Primary insomnia F51.01 ; Post-traumatic stress disorder, chronic F43.12 ; Other tank terminal gauger (current) drug therapy Z79.899 ; Excoriation (skin-picking) disorder F42.4 ; Drug induced subacute dyskinesia G24.01 and Dry mouth R68.2 [facility] [employer] [place] [address] [address] 08/18/2024 Lis Hemdavid Post-traumatic stres s disorder, chronic F43.12 ; Generalized anxiety disorder F41.1 and Depressed bipolar disorder F31.9 [facility] [employer] [place] [address] [address] 09/12/2024 Lis Hemann Post-traumatic stres s disorder, chronic F43.12 ; Generalized anxiety disorder F41.1 and Depressed bipolar disorder F31.9 [facility] [employer] [place] [address] [address] 04/08/2024 Candice Machado Bipolar disorder, unspecified F31.9 [facility] [employer] [address] [address] 09/12/2024 Lis Rodríguez Assessments Encounter Date Diagnosis (ICD Code) Assessment Notes Treatment Notes Treatment Clinical Notes Section Notes 04/08/2024 Bipolar disorder, unspecified (ICD-10 - F31.9) Electronic Prior Authorization was requested for Vraylar 3 MG Capsule. Provider can order medication once approval received. 05/26/2024 Generalized anxiety disorder (ICD-10 - F41.1) Learning About Generalized Anxiety Disorder material was published, Generalized Anxiety Disorder: Care Instructions material was published, Learning About Anxiety Disorders material was published 1. bipolar disorder -wants 30 days refills only r/t co-pays Vraylar 3 mg daily eat with rx for psychosis AIMS=11 12/26/21 AIMS= 02/05/23 lamotrigine 200 mg po bid labs reviewed continue therapy hx parathyroid abnormal see specialist - parathyroid and vit d educated on all medications, benefits, side effects and risk, and educated on depression, anxiety, and , mood d/o and educated on compliance of medications, appointment's, continue therapy discussion with patient about course of treatment and patient instructions. Lamotriginelamotrigine has a serious rashes requiring hospitalization and discontinue treatment including Magdy Cem syndrome rare case of toxic epidermal necrolysis and cache related deaths.Incidence with adjunct of epilepsy treatment 0.8% in 2 to 16 years old and 0.3% in adults, bipolarand other mood disorders incidence 0.8% this initial monotherapy and 0.13% as adjunctivetreatment.Oth er risk factor may include concomitant use of valproate acid derivative or exceeding initiallamotrigine does or does as clinician recommendation; most life-threatening rash of occurring first 2 to 8 week of treatment with isolated cases after prolonged treatment; though benign may occur,discontinue treatment at first sign of rash unless clearly not a drug related; TC treatment may notprevent trash from becoming life-threatening or permanently disabling or disfiguring. Comment reaction include, nausea/vomiting, dizziness/vertigo, visual disturbances, somnolence,ataxia, pruritus/rash, pharyngitis, headache, rhinitis, diarrhea, fever, asthenia, insomnia, tremor,abdominal pain, cough, accidental injury, constipation, dysmenorrhea, incoordination, anxiety,seizures, irritability, anorexia, xerostomia, and photosensitivity.Seriou s reactions include: Rash, severe; Christina Cem syndrome; toxic epidermal necrosis;injury edema, hypersensitivity reactions. Including fatal, multiple organ failure to safe fatal, rash witheosinophilia systemic symptoms, DIC, neutropenia, leukopenia, thrombocytopenia, pancytopenia,aplastic anemia, hemolytic anemia, i pancreatitis, hepatic failure, rhabdomyolysis, worsening ofsuicidal ideation, worsening of depression, cleft lip/palate [first trimester use]DO not Change Cosmetic, perfumes or soap for next 4 weeks. The patient was advice to take lamotrigine as prescribed the patient was instructed not to deviatefrom the prescription dosages. Stop lamotrigine is the first sign of rash. Patient was insisted to informoffice if any of the serious side effect develops. 2. Generalized anxiety disorder - Effexor 75 mg in am Sertraline 150 mg in am for depression and anxiety Clonazepam 0.5 mg four times a day Medication Management and Follow-Up- Plan:- Schedule follow-up appointments every 2-3 months to monitor the patient's response to the medication regimen.- Reinforce the importance of avoiding recreational drug use due to potential neurotoxicity and interactions with prescribed medications 3. Primary insomnia -work on sleep schedule in therapy sleep hygiene educated Melatonin 10 mg otc nightly. Trazodone 100 at bedtime 4. Tardive dyskinesia - [employer] insurance denied and appeal does not want rx - monitor patient will see neurologist about movement 06/08 educated on medication AIMS= 11 12/26/21 5 dry mouth educated on dry mouth and use Biotine disucss medications and dry mouth . Long-term drug therapy 04/07/2024 Post-traumatic stress disorder, chronic (ICD-10 - F43.12) 03/03/2024 Post-traumatic stress disorder, chronic (ICD-10 - F43.12) 03/03/2024 Depressed bipolar disorder (ICD-10 - F31.9) 04/07/2024 Depressed bipolar disorder (ICD-10 - F31.9) 06/23/2024 Post-traumatic stress disorder, chronic (ICD-10 - F43.12) 06/23/2024 Depressed bipolar disorder (ICD-10 - F31.9) 06/30/2024 Post-traumatic stress disorder, chronic (ICD-10 - F43.12) 06/30/2024 Depressed bipolar disorder (ICD-10 - F31.9) 09/24/2023 Generalized anxiety disorder (ICD-10 - F41.1) 09/24/2023 Post-traumatic stress disorder, chronic (ICD-10 - F43.12) 10/15/2023 Post-traumatic stress disorder, chronic (ICD-10 - F43.12) 10/15/2023 Excoriation (skin-picking) disorder (ICD-10 - F42.4) 10/29/2023 Post-traumatic stress disorder, chronic (ICD-10 - F43.12) 10/29/2023 Excoriation (skin-picking) disorder (ICD-10 - F42.4) 11/12/2023 Generalized anxiety disorder (ICD-10 - F41.1) Learning About Generalized Anxiety Disorder material was published, Generalized Anxiety Disorder: Care Instructions material was published, Learning About Anxiety Disorders material was published 1. Mild bipolar disorder -wants 30 days refills only r/t co-pays Vraylar 3 mg daily eat with rx for psychosis AIMS=11 12/26/21 AIMS= 02/05/23 lamotrigine 200 mg po bid obtain labs reviewed Endo/PCP continue therapy hx parathyroid abnormal see specialist - parathyroid and vit d educated on all medications, benefits, side effects and risk, and educated on depression, anxiety, and , mood d/o and educated on compliance of medications, appointment's, continue therapy discussion with patient about course of treatment and patient instructions. Lamotriginelamotrigine has a serious rashes requiring hospitalization and discontinue treatment including Magdy Cem syndrome rare case of toxic epidermal necrolysis and cache related deaths.Incidence with adjunct of epilepsy treatment 0.8% in 2 to 16 years old and 0.3% in adults, bipolarand other mood disorders incidence 0.8% this initial monotherapy and 0.13% as adjunctivetreatment.Oth er risk factor may include concomitant use of valproate acid derivative or exceeding initiallamotrigine does or does as clinician recommendation; most life-threatening rash of occurring first 2 to 8 week of treatment with isolated cases after prolonged treatment; though benign may occur,discontinue treatment at first sign of rash unless clearly not a drug related; TC treatment may notprevent trash from becoming life-threatening or permanently disabling or disfiguring. Comment reaction include, nausea/vomiting, dizziness/vertigo, visual disturbances, somnolence,ataxia, pruritus/rash, pharyngitis, headache, rhinitis, diarrhea, fever, asthenia, insomnia, tremor,abdominal pain, cough, accidental injury, constipation, dysmenorrhea, incoordination, anxiety,seizures, irritability, anorexia, xerostomia, and photosensitivity.Seriou s reactions include: Rash, severe; Christina Cem syndrome; toxic epidermal necrosis;injury edema, hypersensitivity reactions. Including fatal, multiple organ failure to safe fatal, rash witheosinophilia systemic symptoms, DIC, neutropenia, leukopenia, thrombocytopenia, pancytopenia,aplastic anemia, hemolytic anemia, i pancreatitis, hepatic failure, rhabdomyolysis, worsening ofsuicidal ideation, worsening of depression, cleft lip/palate [first trimester use]DO not Change Cosmetic, perfumes or soap for next 4 weeks. The patient was advice to take lamotrigine as prescribed the patient was instructed not to deviatefrom the prescription dosages. Stop lamotrigine is the first sign of rash. Patient was insisted to informoffice if any of the serious side effect develops. 2. Generalized anxiety disorder - Effexor 75 mg in am Sertraline 150 mg in am for depression and anxiety Clonazepam 0.5 mg four times a day Medication Management and Follow-Up- Plan:- Schedule follow-up appointments every 2-3 months to monitor the patient's response to the medication regimen.- Reinforce the importance of avoiding recreational drug use due to potential neurotoxicity and interactions with prescribed medications 3. Primary insomnia -work on sleep schedule in therapy sleep hygiene Melatonin 10 mg otc nightly. Trazodone 100 at bedtime 4. Tardive dyskinesia - d/c [employer] insurance denied and appeal does not want rx - monitor patient will see neurologist about movement 06/08 educated on medication AIMS= 12/26/21 5. Long-term drug therapy 11/12/2023 Depressed bipolar disorder (ICD-10 - F31.9) Bipolar Disorder: Care Instructions material was published, Learning About How to Get Help During a Mental Health Crisis material was published, Learning About Movement Disorders From Antipsychotic Medicines material was published, Learning About Mood Disorders material was published 1. Mild bipolar disorder -wants 30 days refills only r/t co-pays Vraylar 3 mg daily eat with rx for psychosis AIMS=11 12/26/21 AIMS= 02/05/23 lamotrigine 200 mg po bid obtain labs reviewed Endo/PCP continue therapy hx parathyroid abnormal see specialist - parathyroid and vit d educated on all medications, benefits, side effects and risk, and educated on depression, anxiety, and , mood d/o and educated on compliance of medications, appointment's, continue therapy discussion with patient about course of treatment and patient instructions. Lamotriginelamotrigine has a serious rashes requiring hospitalization and discontinue treatment including Magdy Cem syndrome rare case of toxic epidermal necrolysis and cache related deaths.Incidence with adjunct of epilepsy treatment 0.8% in 2 to 16 years old and 0.3% in adults, bipolarand other mood disorders incidence 0.8% this initial monotherapy and 0.13% as adjunctivetreatment.Oth er risk factor may include concomitant use of valproate acid derivative or exceeding initiallamotrigine does or does as clinician recommendation; most life-threatening rash of occurring first 2 to 8 week of treatment with isolated cases after prolonged treatment; though benign may occur,discontinue treatment at first sign of rash unless clearly not a drug related; TC treatment may notprevent trash from becoming life-threatening or permanently disabling or disfiguring. Comment reaction include, nausea/vomiting, dizziness/vertigo, visual disturbances, somnolence,ataxia, pruritus/rash, pharyngitis, headache, rhinitis, diarrhea, fever, asthenia, insomnia, tremor,abdominal pain, cough, accidental injury, constipation, dysmenorrhea, incoordination, anxiety,seizures, irritability, anorexia, xerostomia, and photosensitivity.Seriou s reactions include: Rash, severe; Christina Cem syndrome; toxic epidermal necrosis;injury edema, hypersensitivity reactions. Including fatal, multiple organ failure to safe fatal, rash witheosinophilia systemic symptoms, DIC, neutropenia, leukopenia, thrombocytopenia, pancytopenia,aplastic anemia, hemolytic anemia, i pancreatitis, hepatic failure, rhabdomyolysis, worsening ofsuicidal ideation, worsening of depression, cleft lip/palate [first trimester use]DO not Change Cosmetic, perfumes or soap for next 4 weeks. The patient was advice to take lamotrigine as prescribed the patient was instructed not to deviatefrom the prescription dosages. Stop lamotrigine is the first sign of rash. Patient was insisted to informoffice if any of the serious side effect develops. 2. Generalized anxiety disorder - Effexor 75 mg in am Sertraline 150 mg in am for depression and anxiety Clonazepam 0.5 mg four times a day Medication Management and Follow-Up- Plan:- Schedule follow-up appointments every 2-3 months to monitor the patient's response to the medication regimen.- Reinforce the importance of avoiding recreational drug use due to potential neurotoxicity and interactions with prescribed medications 3. Primary insomnia -work on sleep schedule in therapy sleep hygiene Melatonin 10 mg otc nightly. Trazodone 100 at bedtime 4. Tardive dyskinesia - d/c [employer] insurance denied and appeal does not want rx - monitor patient will see neurologist about movement 06/08 educated on medication AIMS= 11 12/26/21 5. Long-term drug therapy 11/12/2023 Post-traumatic stress disorder, chronic (ICD-10 - F43.12) 11/12/2023 Excoriation (skin-picking) disorder (ICD-10 - F42.4) 12/03/2023 Post-traumatic stress disorder, chronic (ICD-10 - F43.12) 12/03/2023 Excoriation (skin-picking) disorder (ICD-10 - F42.4) 01/14/2024 Bipolar disorder, unspecified (ICD-10 - F31.9) 01/14/2024 Post-traumatic stress disorder, chronic (ICD-10 - F43.12) 01/21/2024 Post-traumatic stress disorder, chronic (ICD-10 - F43.12) 01/21/2024 Depressed bipolar disorder (ICD-10 - F31.9) 02/25/2024 Post-traumatic stress disorder, chronic (ICD-10 - F43.12) 02/25/2024 Depressed bipolar disorder (ICD-10 - F31.9) 02/28/2024 Generalized anxiety disorder (ICD-10 - F41.1) Learning About Generalized Anxiety Disorder material was published, Generalized Anxiety Disorder: Care Instructions material was published, Learning About Anxiety Disorders material was published 1. Mild bipolar disorder -wants 30 days refills only r/t co-pays Vraylar 3 mg daily eat with rx for psychosis AIMS=11 12/26/21 AIMS= 02/05/23 lamotrigine 200 mg po bid obtain labs reviewed Endo/PCP continue therapy hx parathyroid abnormal see specialist - parathyroid and vit d educated on all medications, benefits, side effects and risk, and educated on depression, anxiety, and , mood d/o and educated on compliance of medications, appointment's, continue therapy discussion with patient about course of treatment and patient instructions. Lamotriginelamotrigine has a serious rashes requiring hospitalization and discontinue treatment including Magdy Cem syndrome rare case of toxic epidermal necrolysis and cache related deaths.Incidence with adjunct of epilepsy treatment 0.8% in 2 to 16 years old and 0.3% in adults, bipolarand other mood disorders incidence 0.8% this initial monotherapy and 0.13% as adjunctivetreatment.Oth er risk factor may include concomitant use of valproate acid derivative or exceeding initiallamotrigine does or does as clinician recommendation; most life-threatening rash of occurring first 2 to 8 week of treatment with isolated cases after prolonged treatment; though benign may occur,discontinue treatment at first sign of rash unless clearly not a drug related; TC treatment may notprevent trash from becoming life-threatening or permanently disabling or disfiguring. Comment reaction include, nausea/vomiting, dizziness/vertigo, visual disturbances, somnolence,ataxia, pruritus/rash, pharyngitis, headache, rhinitis, diarrhea, fever, asthenia, insomnia, tremor,abdominal pain, cough, accidental injury, constipation, dysmenorrhea, incoordination, anxiety,seizures, irritability, anorexia, xerostomia, and photosensitivity.Seriou s reactions include: Rash, severe; Christina Cem syndrome; toxic epidermal necrosis;injury edema, hypersensitivity reactions. Including fatal, multiple organ failure to safe fatal, rash witheosinophilia systemic symptoms, DIC, neutropenia, leukopenia, thrombocytopenia, pancytopenia,aplastic anemia, hemolytic anemia, i pancreatitis, hepatic failure, rhabdomyolysis, worsening ofsuicidal ideation, worsening of depression, cleft lip/palate [first trimester use]DO not Change Cosmetic, perfumes or soap for next 4 weeks. The patient was advice to take lamotrigine as prescribed the patient was instructed not to deviatefrom the prescription dosages. Stop lamotrigine is the first sign of rash. Patient was insisted to informoffice if any of the serious side effect develops. 2. Generalized anxiety disorder - Effexor 75 mg in am Sertraline 150 mg in am for depression and anxiety Clonazepam 0.5 mg four times a day Medication Management and Follow-Up- Plan:- Schedule follow-up appointments every 2-3 months to monitor the patient's response to the medication regimen.- Reinforce the importance of avoiding recreational drug use due to potential neurotoxicity and interactions with prescribed medications 3. Primary insomnia -work on sleep schedule in therapy sleep hygiene educated Melatonin 10 mg otc nightly. Trazodone 100 at bedtime 4. Tardive dyskinesia - [employer] insurance denied and appeal does not want rx - monitor patient will see neurologist about movement 06/08 educated on medication AIMS= 11 12/26/21 5 dry mouth educated on dry mouth and use Biotine disucss medications and dry mouth . Long-term drug therapy 07/28/2024 Post-traumatic stress disorder, chronic (ICD-10 - F43.12) 08/18/2024 Encounter for screening for depression (ICD-10 - Z13.31) 1. bipolar disorder -wants 30 days refills only r/t co-pays Vraylar 3 mg daily eat with rx for psychosis AIMS=11 12/26/21 AIMS= 02/05/23 AIMS= 2 08/18/24 missing teeth and reported shakes once in a while rt hand lamotrigine 200 mg po bid labs reviewed and scanned into chart continue therapy hx parathyroid abnormal see specialist - parathyroid and vit d educated on all medications, benefits, side effects and risk, and educated on depression, anxiety, and , mood d/o and educated on compliance of medications, appointment's, continue therapy discussion with patient about course of treatment and patient instructions. Lamotriginelamotrigine has a serious rashes requiring hospitalization and discontinue treatment including Magdy Cem syndrome rare case of toxic epidermal necrolysis and cache related deaths.Incidence with adjunct of epilepsy treatment 0.8% in 2 to 16 years old and 0.3% in adults, bipolarand other mood disorders incidence 0.8% this initial monotherapy and 0.13% as adjunctivetreatment.Oth er risk factor may include concomitant use of valproate acid derivative or exceeding initiallamotrigine does or does as clinician recommendation; most life-threatening rash of occurring first 2 to 8 week of treatment with isolated cases after prolonged treatment; though benign may occur,discontinue treatment at first sign of rash unless clearly not a drug related; TC treatment may notprevent trash from becoming life-threatening or permanently disabling or disfiguring. Comment reaction include, nausea/vomiting, dizziness/vertigo, visual disturbances, somnolence,ataxia, pruritus/rash, pharyngitis, headache, rhinitis, diarrhea, fever, asthenia, insomnia, tremor,abdominal pain, cough, accidental injury, constipation, dysmenorrhea, incoordination, anxiety,seizures, irritability, anorexia, xerostomia, and photosensitivity.Seriou s reactions include: Rash, severe; Christina Cem syndrome; toxic epidermal necrosis;injury edema, hypersensitivity reactions. Including fatal, multiple organ failure to safe fatal, rash witheosinophilia systemic symptoms, DIC, neutropenia, leukopenia, thrombocytopenia, pancytopenia,aplastic anemia, hemolytic anemia, i pancreatitis, hepatic failure, rhabdomyolysis, worsening ofsuicidal ideation, worsening of depression, cleft lip/palate [first trimester use]DO not Change Cosmetic, perfumes or soap for next 4 weeks. The patient was advice to take lamotrigine as prescribed the patient was instructed not to deviatefrom the prescription dosages. Stop lamotrigine is the first sign of rash. Patient was insisted to informoffice if any of the serious side effect develops. 2. Generalized anxiety disorder - Effexor 75 mg in am Sertraline 150 mg in am for depression and anxiety Clonazepam 0.5 mg four times a day Medication Management and Follow-Up- Plan:- Schedule follow-up appointments every 2-3 months to monitor the patient's response to the medication regimen.- Reinforce the importance of avoiding recreational drug use due to potential neurotoxicity and interactions with prescribed medications 3. Primary insomnia -work on sleep schedule in therapy sleep hygiene educated Melatonin 10 mg otc nightly. Trazodone 100 at bedtime 4. Tardive dyskinesia - [employer] insurance denied and appeal does not want rx - monitor patient will see neurologist about movement 06/08 educated on medication AIMS= 11 12/26/21 AIMS= 2 08/18/24 missing teeth and reported shakes once in a while rt hand 5 dry mouth educated on dry mouth and use Biotine disucss medications and dry mouth . Long-term drug therapy 08/18/2024 Depressed bipolar disorder (ICD-10 - F31.9) Bipolar Disorder: Care Instructions material was published, Learning About How to Get Help During a Mental Health Crisis material was published, Learning About Movement Disorders From Antipsychotic Medicines material was published, Learning About Mood Disorders material was published 1. bipolar disorder -wants 30 days refills only r/t co-pays Vraylar 3 mg daily eat with rx for psychosis AIMS=11 12/26/21 AIMS= 02/05/23 AIMS= 2 08/18/24 missing teeth and reported shakes once in a while rt hand lamotrigine 200 mg po bid labs reviewed and scanned into chart continue therapy hx parathyroid abnormal see specialist - parathyroid and vit d educated on all medications, benefits, side effects and risk, and educated on depression, anxiety, and , mood d/o and educated on compliance of medications, appointment's, continue therapy discussion with patient about course of treatment and patient instructions. Lamotriginelamotrigine has a serious rashes requiring hospitalization and discontinue treatment including Magdy Cem syndrome rare case of toxic epidermal necrolysis and cache related deaths.Incidence with adjunct of epilepsy treatment 0.8% in 2 to 16 years old and 0.3% in adults, bipolarand other mood disorders incidence 0.8% this initial monotherapy and 0.13% as adjunctivetreatment.Oth er risk factor may include concomitant use of valproate acid derivative or exceeding initiallamotrigine does or does as clinician recommendation; most life-threatening rash of occurring first 2 to 8 week of treatment with isolated cases after prolonged treatment; though benign may occur,discontinue treatment at first sign of rash unless clearly not a drug related; TC treatment may notprevent trash from becoming life-threatening or permanently disabling or disfiguring. Comment reaction include, nausea/vomiting, dizziness/vertigo, visual disturbances, somnolence,ataxia, pruritus/rash, pharyngitis, headache, rhinitis, diarrhea, fever, asthenia, insomnia, tremor,abdominal pain, cough, accidental injury, constipation, dysmenorrhea, incoordination, anxiety,seizures, irritability, anorexia, xerostomia, and photosensitivity.Seriou s reactions include: Rash, severe; Christina Cem syndrome; toxic epidermal necrosis;injury edema, hypersensitivity reactions. Including fatal, multiple organ failure to safe fatal, rash witheosinophilia systemic symptoms, DIC, neutropenia, leukopenia, thrombocytopenia, pancytopenia,aplastic anemia, hemolytic anemia, i pancreatitis, hepatic failure, rhabdomyolysis, worsening ofsuicidal ideation, worsening of depression, cleft lip/palate [first trimester use]DO not Change Cosmetic, perfumes or soap for next 4 weeks. The patient was advice to take lamotrigine as prescribed the patient was instructed not to deviatefrom the prescription dosages. Stop lamotrigine is the first sign of rash. Patient was insisted to informoffice if any of the serious side effect develops. 2. Generalized anxiety disorder - Effexor 75 mg in am Sertraline 150 mg in am for depression and anxiety Clonazepam 0.5 mg four times a day Medication Management and Follow-Up- Plan:- Schedule follow-up appointments every 2-3 months to monitor the patient's response to the medication regimen.- Reinforce the importance of avoiding recreational drug use due to potential neurotoxicity and interactions with prescribed medications 3. Primary insomnia -work on sleep schedule in therapy sleep hygiene educated Melatonin 10 mg otc nightly. Trazodone 100 at bedtime 4. Tardive dyskinesia - [employer] insurance denied and appeal does not want rx - monitor patient will see neurologist about movement 06/08 educated on medication AIMS= 11 12/26/21 AIMS= 2 08/18/24 missing teeth and reported shakes once in a while rt hand 5 dry mouth educated on dry mouth and use Biotine disucss medications and dry mouth . Long-term drug therapy 08/18/2024 Post-traumatic stress disorder, chronic (ICD-10 - F43.12) 09/12/2024 Post-traumatic stress disorder, chronic (ICD-10 - F43.12) 08/18/2024 Generalized anxiety disorder (ICD-10 - F41.1) 09/12/2024 Generalized anxiety disorder (ICD-10 - F41.1) 08/18/2024 Encounter for screening for cardiovascular disorders (ICD-10 - Z13.6) 1. bipolar disorder -wants 30 days refills only r/t co-pays Vraylar 3 mg daily eat with rx for psychosis AIMS=11 12/26/21 AIMS= 02/05/23 AIMS= 2 08/18/24 missing teeth and reported shakes once in a while rt hand lamotrigine 200 mg po bid labs reviewed and scanned into chart continue therapy hx parathyroid abnormal see specialist - parathyroid and vit d educated on all medications, benefits, side effects and risk, and educated on depression, anxiety, and , mood d/o and educated on compliance of medications, appointment's, continue therapy discussion with patient about course of treatment and patient instructions. Lamotriginelamotrigine has a serious rashes requiring hospitalization and discontinue treatment including Magdy Cem syndrome rare case of toxic epidermal necrolysis and cache related deaths.Incidence with adjunct of epilepsy treatment 0.8% in 2 to 16 years old and 0.3% in adults, bipolarand other mood disorders incidence 0.8% this initial monotherapy and 0.13% as adjunctivetreatment.Oth er risk factor may include concomitant use of valproate acid derivative or exceeding initiallamotrigine does or does as clinician recommendation; most life-threatening rash of occurring first 2 to 8 week of treatment with isolated cases after prolonged treatment; though benign may occur,discontinue treatment at first sign of rash unless clearly not a drug related; TC treatment may notprevent trash from becoming life-threatening or permanently disabling or disfiguring. Comment reaction include, nausea/vomiting, dizziness/vertigo, visual disturbances, somnolence,ataxia, pruritus/rash, pharyngitis, headache, rhinitis, diarrhea, fever, asthenia, insomnia, tremor,abdominal pain, cough, accidental injury, constipation, dysmenorrhea, incoordination, anxiety,seizures, irritability, anorexia, xerostomia, and photosensitivity.Seriou s reactions include: Rash, severe; Christina Cem syndrome; toxic epidermal necrosis;injury edema, hypersensitivity reactions. Including fatal, multiple organ failure to safe fatal, rash witheosinophilia systemic symptoms, DIC, neutropenia, leukopenia, thrombocytopenia, pancytopenia,aplastic anemia, hemolytic anemia, i pancreatitis, hepatic failure, rhabdomyolysis, worsening ofsuicidal ideation, worsening of depression, cleft lip/palate [first trimester use]DO not Change Cosmetic, perfumes or soap for next 4 weeks. The patient was advice to take lamotrigine as prescribed the patient was instructed not to deviatefrom the prescription dosages. Stop lamotrigine is the first sign of rash. Patient was insisted to informoffice if any of the serious side effect develops. 2. Generalized anxiety disorder - Effexor 75 mg in am Sertraline 150 mg in am for depression and anxiety Clonazepam 0.5 mg four times a day Medication Management and Follow-Up- Plan:- Schedule follow-up appointments every 2-3 months to monitor the patient's response to the medication regimen.- Reinforce the importance of avoiding recreational drug use due to potential neurotoxicity and interactions with prescribed medications 3. Primary insomnia -work on sleep schedule in therapy sleep hygiene educated Melatonin 10 mg otc nightly. Trazodone 100 at bedtime 4. Tardive dyskinesia - [employer] insurance denied and appeal does not want rx - monitor patient will see neurologist about movement 06/08 educated on medication AIMS= 11 12/26/21 AIMS= 2 08/18/24 missing teeth and reported shakes once in a while rt hand 5 dry mouth educated on dry mouth and use Biotine disucss medications and dry mouth . Long-term drug therapy 02/25/2024 Generalized anxiety disorder (ICD-10 - F41.1) 01/14/2024 Excoriation (skin-picking) disorder (ICD-10 - F42.4) 01/21/2024 Generalized anxiety disorder (ICD-10 - F41.1) 11/12/2023 Primary insomnia (ICD-10 - F51.01) Insomnia: Care Instructions material was published, Learning About Sleeping Well material was published 1. Mild bipolar disorder -wants 30 days refills only r/t co-pays Vraylar 3 mg daily eat with rx for psychosis AIMS=11 12/26/21 AIMS= 02/05/23 lamotrigine 200 mg po bid obtain labs reviewed Endo/PCP continue therapy hx parathyroid abnormal see specialist - parathyroid and vit d educated on all medications, benefits, side effects and risk, and educated on depression, anxiety, and , mood d/o and educated on compliance of medications, appointment's, continue therapy discussion with patient about course of treatment and patient instructions. Lamotriginelamotrigine has a serious rashes requiring hospitalization and discontinue treatment including Magdy Cem syndrome rare case of toxic epidermal necrolysis and cache related deaths.Incidence with adjunct of epilepsy treatment 0.8% in 2 to 16 years old and 0.3% in adults, bipolarand other mood disorders incidence 0.8% this initial monotherapy and 0.13% as adjunctivetreatment.Oth er risk factor may include concomitant use of valproate acid derivative or exceeding initiallamotrigine does or does as clinician recommendation; most life-threatening rash of occurring first 2 to 8 week of treatment with isolated cases after prolonged treatment; though benign may occur,discontinue treatment at first sign of rash unless clearly not a drug related; TC treatment may notprevent trash from becoming life-threatening or permanently disabling or disfiguring. Comment reaction include, nausea/vomiting, dizziness/vertigo, visual disturbances, somnolence,ataxia, pruritus/rash, pharyngitis, headache, rhinitis, diarrhea, fever, asthenia, insomnia, tremor,abdominal pain, cough, accidental injury, constipation, dysmenorrhea, incoordination, anxiety,seizures, irritability, anorexia, xerostomia, and photosensitivity.Seriou s reactions include: Rash, severe; Christina Cem syndrome; toxic epidermal necrosis;injury edema, hypersensitivity reactions. Including fatal, multiple organ failure to safe fatal, rash witheosinophilia systemic symptoms, DIC, neutropenia, leukopenia, thrombocytopenia, pancytopenia,aplastic anemia, hemolytic anemia, i pancreatitis, hepatic failure, rhabdomyolysis, worsening ofsuicidal ideation, worsening of depression, cleft lip/palate [first trimester use]DO not Change Cosmetic, perfumes or soap for next 4 weeks. The patient was advice to take lamotrigine as prescribed the patient was instructed not to deviatefrom the prescription dosages. Stop lamotrigine is the first sign of rash. Patient was insisted to informoffice if any of the serious side effect develops. 2. Generalized anxiety disorder - Effexor 75 mg in am Sertraline 150 mg in am for depression and anxiety Clonazepam 0.5 mg four times a day Medication Management and Follow-Up- Plan:- Schedule follow-up appointments every 2-3 months to monitor the patient's response to the medication regimen.- Reinforce the importance of avoiding recreational drug use due to potential neurotoxicity and interactions with prescribed medications 3. Primary insomnia -work on sleep schedule in therapy sleep hygiene Melatonin 10 mg otc nightly. Trazodone 100 at bedtime 4. Tardive dyskinesia - d/c [employer] insurance denied and appeal does not want rx - monitor patient will see neurologist about movement 06/08 educated on medication AIMS= 12/26/21 5. Long-term drug therapy 10/29/2023 Other bipolar disorder (ICD-10 - F31.89) 09/24/2023 Excoriation (skin-picking) disorder (ICD-10 - F42.4) 10/15/2023 Other bipolar disorder (ICD-10 - F31.89) 07/28/2024 Generalized anxiety disorder (ICD-10 - F41.1) 06/30/2024 Generalized anxiety disorder (ICD-10 - F41.1) 06/23/2024 Generalized anxiety disorder (ICD-10 - F41.1) 05/26/2024 Depressed bipolar disorder (ICD-10 - F31.9) Bipolar Disorder: Care Instructions material was published, Learning About How to Get Help During a Mental Health Crisis material was published, Learning About Movement Disorders From Antipsychotic Medicines material was published, Learning About Mood Disorders material was published 1. bipolar disorder -wants 30 days refills only r/t co-pays Vraylar 3 mg daily eat with rx for psychosis AIMS=11 12/26/21 AIMS= 02/05/23 lamotrigine 200 mg po bid labs reviewed continue therapy hx parathyroid abnormal see specialist - parathyroid and vit d educated on all medications, benefits, side effects and risk, and educated on depression, anxiety, and , mood d/o and educated on compliance of medications, appointment's, continue therapy discussion with patient about course of treatment and patient instructions. Lamotriginelamotrigine has a serious rashes requiring hospitalization and discontinue treatment including Magdy Cem syndrome rare case of toxic epidermal necrolysis and cache related deaths.Incidence with adjunct of epilepsy treatment 0.8% in 2 to 16 years old and 0.3% in adults, bipolarand other mood disorders incidence 0.8% this initial monotherapy and 0.13% as adjunctivetreatment.Oth er risk factor may include concomitant use of valproate acid derivative or exceeding initiallamotrigine does or does as clinician recommendation; most life-threatening rash of occurring first 2 to 8 week of treatment with isolated cases after prolonged treatment; though benign may occur,discontinue treatment at first sign of rash unless clearly not a drug related; TC treatment may notprevent trash from becoming life-threatening or permanently disabling or disfiguring. Comment reaction include, nausea/vomiting, dizziness/vertigo, visual disturbances, somnolence,ataxia, pruritus/rash, pharyngitis, headache, rhinitis, diarrhea, fever, asthenia, insomnia, tremor,abdominal pain, cough, accidental injury, constipation, dysmenorrhea, incoordination, anxiety,seizures, irritability, anorexia, xerostomia, and photosensitivity.Seriou s reactions include: Rash, severe; Christina Cem syndrome; toxic epidermal necrosis;injury edema, hypersensitivity reactions. Including fatal, multiple organ failure to safe fatal, rash witheosinophilia systemic symptoms, DIC, neutropenia, leukopenia, thrombocytopenia, pancytopenia,aplastic anemia, hemolytic anemia, i pancreatitis, hepatic failure, rhabdomyolysis, worsening ofsuicidal ideation, worsening of depression, cleft lip/palate [first trimester use]DO not Change Cosmetic, perfumes or soap for next 4 weeks. The patient was advice to take lamotrigine as prescribed the patient was instructed not to deviatefrom the prescription dosages. Stop lamotrigine is the first sign of rash. Patient was insisted to informoffice if any of the serious side effect develops. 2. Generalized anxiety disorder - Effexor 75 mg in am Sertraline 150 mg in am for depression and anxiety Clonazepam 0.5 mg four times a day Medication Management and Follow-Up- Plan:- Schedule follow-up appointments every 2-3 months to monitor the patient's response to the medication regimen.- Reinforce the importance of avoiding recreational drug use due to potential neurotoxicity and interactions with prescribed medications 3. Primary insomnia -work on sleep schedule in therapy sleep hygiene educated Melatonin 10 mg otc nightly. Trazodone 100 at bedtime 4. Tardive dyskinesia - [employer] insurance denied and appeal does not want rx - monitor patient will see neurologist about movement 06/08 educated on medication AIMS= 11 12/26/21 5 dry mouth educated on dry mouth and use Biotine disucss medications and dry mouth . Long-term drug therapy 05/26/2024 Primary insomnia (ICD-10 - F51.01) Insomnia: Care Instructions material was published, Learning About Sleeping Well material was published, Insomnia: Care Instructions material was published, Learning About Sleeping Well material was published 1. bipolar disorder -wants 30 days refills only r/t co-pays Vraylar 3 mg daily eat with rx for psychosis AIMS=12/26/21 AIMS= 02/05/23 lamotrigine 200 mg po bid labs reviewed continue therapy hx parathyroid abnormal see specialist - parathyroid and vit d educated on all medications, benefits, side effects and risk, and educated on depression, anxiety, and , mood d/o and educated on compliance of medications, appointment's, continue therapy discussion with patient about course of treatment and patient instructions. Lamotriginelamotrigine has a serious rashes requiring hospitalization and discontinue treatment including Magdy Cem syndrome rare case of toxic epidermal necrolysis and cache related deaths.Incidence with adjunct of epilepsy treatment 0.8% in 2 to 16 years old and 0.3% in adults, bipolarand other mood disorders incidence 0.8% this initial monotherapy and 0.13% as adjunctivetreatment.Oth er risk factor may include concomitant use of valproate acid derivative or exceeding initiallamotrigine does or does as clinician recommendation; most life-threatening rash of occurring first 2 to 8 week of treatment with isolated cases after prolonged treatment; though benign may occur,discontinue treatment at first sign of rash unless clearly not a drug related; TC treatment may notprevent trash from becoming life-threatening or permanently disabling or disfiguring. Comment reaction include, nausea/vomiting, dizziness/vertigo, visual disturbances, somnolence,ataxia, pruritus/rash, pharyngitis, headache, rhinitis, diarrhea, fever, asthenia, insomnia, tremor,abdominal pain, cough, accidental injury, constipation, dysmenorrhea, incoordination, anxiety,seizures, irritability, anorexia, xerostomia, and photosensitivity.Seriou s reactions include: Rash, severe; Christina Cem syndrome; toxic epidermal necrosis;injury edema, hypersensitivity reactions. Including fatal, multiple organ failure to safe fatal, rash witheosinophilia systemic symptoms, DIC, neutropenia, leukopenia, thrombocytopenia, pancytopenia,aplastic anemia, hemolytic anemia, i pancreatitis, hepatic failure, rhabdomyolysis, worsening ofsuicidal ideation, worsening of depression, cleft lip/palate [first trimester use]DO not Change Cosmetic, perfumes or soap for next 4 weeks. The patient was advice to take lamotrigine as prescribed the patient was instructed not to deviatefrom the prescription dosages. Stop lamotrigine is the first sign of rash. Patient was insisted to informoffice if any of the serious side effect develops. 2. Generalized anxiety disorder - Effexor 75 mg in am Sertraline 150 mg in am for depression and anxiety Clonazepam 0.5 mg four times a day Medication Management and Follow-Up- Plan:- Schedule follow-up appointments every 2-3 months to monitor the patient's response to the medication regimen.- Reinforce the importance of avoiding recreational drug use due to potential neurotoxicity and interactions with prescribed medications 3. Primary insomnia -work on sleep schedule in therapy sleep hygiene educated Melatonin 10 mg otc nightly. Trazodone 100 at bedtime 4. Tardive dyskinesia - [employer] insurance denied and appeal does not want rx - monitor patient will see neurologist about movement 06/08 educated on medication AIMS= 11 12/26/21 5 dry mouth educated on dry mouth and use Biotine disucss medications and dry mouth . Long-term drug therapy 04/07/2024 Generalized anxiety disorder (ICD-10 - F41.1) 02/28/2024 Primary insomnia (ICD-10 - F51.01) Insomnia: Care Instructions material was published, Learning About Sleeping Well material was published, Insomnia: Care Instructions material was published, Learning About Sleeping Well material was published 1. Mild bipolar disorder -wants 30 days refills only r/t co-pays Vraylar 3 mg daily eat with rx for psychosis AIMS=11 12/26/21 AIMS= 02/05/23 lamotrigine 200 mg po bid obtain labs reviewed Endo/PCP continue therapy hx parathyroid abnormal see specialist - parathyroid and vit d educated on all medications, benefits, side effects and risk, and educated on depression, anxiety, and , mood d/o and educated on compliance of medications, appointment's, continue therapy discussion with patient about course of treatment and patient instructions. Lamotriginelamotrigine has a serious rashes requiring hospitalization and discontinue treatment including Magdy Cem syndrome rare case of toxic epidermal necrolysis and cache related deaths.Incidence with adjunct of epilepsy treatment 0.8% in 2 to 16 years old and 0.3% in adults, bipolarand other mood disorders incidence 0.8% this initial monotherapy and 0.13% as adjunctivetreatment.Oth er risk factor may include concomitant use of valproate acid derivative or exceeding initiallamotrigine does or does as clinician recommendation; most life-threatening rash of occurring first 2 to 8 week of treatment with isolated cases after prolonged treatment; though benign may occur,discontinue treatment at first sign of rash unless clearly not a drug related; TC treatment may notprevent trash from becoming life-threatening or permanently disabling or disfiguring. Comment reaction include, nausea/vomiting, dizziness/vertigo, visual disturbances, somnolence,ataxia, pruritus/rash, pharyngitis, headache, rhinitis, diarrhea, fever, asthenia, insomnia, tremor,abdominal pain, cough, accidental injury, constipation, dysmenorrhea, incoordination, anxiety,seizures, irritability, anorexia, xerostomia, and photosensitivity.Seriou s reactions include: Rash, severe; Christina Cem syndrome; toxic epidermal necrosis;injury edema, hypersensitivity reactions. Including fatal, multiple organ failure to safe fatal, rash witheosinophilia systemic symptoms, DIC, neutropenia, leukopenia, thrombocytopenia, pancytopenia,aplastic anemia, hemolytic anemia, i pancreatitis, hepatic failure, rhabdomyolysis, worsening ofsuicidal ideation, worsening of depression, cleft lip/palate [first trimester use]DO not Change Cosmetic, perfumes or soap for next 4 weeks. The patient was advice to take lamotrigine as prescribed the patient was instructed not to deviatefrom the prescription dosages. Stop lamotrigine is the first sign of rash. Patient was insisted to informoffice if any of the serious side effect develops. 2. Generalized anxiety disorder - Effexor 75 mg in am Sertraline 150 mg in am for depression and anxiety Clonazepam 0.5 mg four times a day Medication Management and Follow-Up- Plan:- Schedule follow-up appointments every 2-3 months to monitor the patient's response to the medication regimen.- Reinforce the importance of avoiding recreational drug use due to potential neurotoxicity and interactions with prescribed medications 3. Primary insomnia -work on sleep schedule in therapy sleep hygiene educated Melatonin 10 mg otc nightly. Trazodone 100 at bedtime 4. Tardive dyskinesia - [employer] insurance denied and appeal does not want rx - monitor patient will see neurologist about movement 06/08 educated on medication AIMS= 11 12/26/21 5 dry mouth educated on dry mouth and use Biotine disucss medications and dry mouth . Long-term drug therapy 02/28/2024 Depressed bipolar disorder (ICD-10 - F31.9) Bipolar Disorder: Care Instructions material was published, Learning About How to Get Help During a Mental Health Crisis material was published, Learning About Movement Disorders From Antipsychotic Medicines material was published, Learning About Mood Disorders material was published 1. Mild bipolar disorder -wants 30 days refills only r/t co-pays Vraylar 3 mg daily eat with rx for psychosis AIMS=11 12/26/21 AIMS= 02/05/23 lamotrigine 200 mg po bid obtain labs reviewed Endo/PCP continue therapy hx parathyroid abnormal see specialist - parathyroid and vit d educated on all medications, benefits, side effects and risk, and educated on depression, anxiety, and , mood d/o and educated on compliance of medications, appointment's, continue therapy discussion with patient about course of treatment and patient instructions. Lamotriginelamotrigine has a serious rashes requiring hospitalization and discontinue treatment including Magdy Cem syndrome rare case of toxic epidermal necrolysis and cache related deaths.Incidence with adjunct of epilepsy treatment 0.8% in 2 to 16 years old and 0.3% in adults, bipolarand other mood disorders incidence 0.8% this initial monotherapy and 0.13% as adjunctivetreatment.Oth er risk factor may include concomitant use of valproate acid derivative or exceeding initiallamotrigine does or does as clinician recommendation; most life-threatening rash of occurring first 2 to 8 week of treatment with isolated cases after prolonged treatment; though benign may occur,discontinue treatment at first sign of rash unless clearly not a drug related; TC treatment may notprevent trash from becoming life-threatening or permanently disabling or disfiguring. Comment reaction include, nausea/vomiting, dizziness/vertigo, visual disturbances, somnolence,ataxia, pruritus/rash, pharyngitis, headache, rhinitis, diarrhea, fever, asthenia, insomnia, tremor,abdominal pain, cough, accidental injury, constipation, dysmenorrhea, incoordination, anxiety,seizures, irritability, anorexia, xerostomia, and photosensitivity.Seriou s reactions include: Rash, severe; Christina Cem syndrome; toxic epidermal necrosis;injury edema, hypersensitivity reactions. Including fatal, multiple organ failure to safe fatal, rash witheosinophilia systemic symptoms, DIC, neutropenia, leukopenia, thrombocytopenia, pancytopenia,aplastic anemia, hemolytic anemia, i pancreatitis, hepatic failure, rhabdomyolysis, worsening ofsuicidal ideation, worsening of depression, cleft lip/palate [first trimester use]DO not Change Cosmetic, perfumes or soap for next 4 weeks. The patient was advice to take lamotrigine as prescribed the patient was instructed not to deviatefrom the prescription dosages. Stop lamotrigine is the first sign of rash. Patient was insisted to informoffice if any of the serious side effect develops. 2. Generalized anxiety disorder - Effexor 75 mg in am Sertraline 150 mg in am for depression and anxiety Clonazepam 0.5 mg four times a day Medication Management and Follow-Up- Plan:- Schedule follow-up appointments every 2-3 months to monitor the patient's response to the medication regimen.- Reinforce the importance of avoiding recreational drug use due to potential neurotoxicity and interactions with prescribed medications 3. Primary insomnia -work on sleep schedule in therapy sleep hygiene educated Melatonin 10 mg otc nightly. Trazodone 100 at bedtime 4. Tardive dyskinesia - [employer] insurance denied and appeal does not want rx - monitor patient will see neurologist about movement 06/08 educated on medication AIMS= 11 12/26/21 5 dry mouth educated on dry mouth and use Biotine disucss medications and dry mouth . Long-term drug therapy 03/03/2024 Generalized anxiety disorder (ICD-10 - F41.1) 03/03/2024 Excoriation (skin-picking) disorder (ICD-10 - F42.4) 04/07/2024 Excoriation (skin-picking) disorder (ICD-10 - F42.4) 05/26/2024 Post-traumatic stress disorder, chronic (ICD-10 - F43.12) Post-Traumatic Stress Disorder (PTSD): Care Instructions material was published 1. bipolar disorder -wants 30 days refills only r/t co-pays Vraylar 3 mg daily eat with rx for psychosis AIMS=11 12/26/21 AIMS= 02/05/23 lamotrigine 200 mg po bid labs reviewed continue therapy hx parathyroid abnormal see specialist - parathyroid and vit d educated on all medications, benefits, side effects and risk, and educated on depression, anxiety, and , mood d/o and educated on compliance of medications, appointment's, continue therapy discussion with patient about course of treatment and patient instructions. Lamotriginelamotrigine has a serious rashes requiring hospitalization and discontinue treatment including Magdy Cem syndrome rare case of toxic epidermal necrolysis and cache related deaths.Incidence with adjunct of epilepsy treatment 0.8% in 2 to 16 years old and 0.3% in adults, bipolarand other mood disorders incidence 0.8% this initial monotherapy and 0.13% as adjunctivetreatment.Oth er risk factor may include concomitant use of valproate acid derivative or exceeding initiallamotrigine does or does as clinician recommendation; most life-threatening rash of occurring first 2 to 8 week of treatment with isolated cases after prolonged treatment; though benign may occur,discontinue treatment at first sign of rash unless clearly not a drug related; TC treatment may notprevent trash from becoming life-threatening or permanently disabling or disfiguring. Comment reaction include, nausea/vomiting, dizziness/vertigo, visual disturbances, somnolence,ataxia, pruritus/rash, pharyngitis, headache, rhinitis, diarrhea, fever, asthenia, insomnia, tremor,abdominal pain, cough, accidental injury, constipation, dysmenorrhea, incoordination, anxiety,seizures, irritability, anorexia, xerostomia, and photosensitivity.Seriou s reactions include: Rash, severe; Christina Cem syndrome; toxic epidermal necrosis;injury edema, hypersensitivity reactions. Including fatal, multiple organ failure to safe fatal, rash witheosinophilia systemic symptoms, DIC, neutropenia, leukopenia, thrombocytopenia, pancytopenia,aplastic anemia, hemolytic anemia, i pancreatitis, hepatic failure, rhabdomyolysis, worsening ofsuicidal ideation, worsening of depression, cleft lip/palate [first trimester use]DO not Change Cosmetic, perfumes or soap for next 4 weeks. The patient was advice to take lamotrigine as prescribed the patient was instructed not to deviatefrom the prescription dosages. Stop lamotrigine is the first sign of rash. Patient was insisted to informoffice if any of the serious side effect develops. 2. Generalized anxiety disorder - Effexor 75 mg in am Sertraline 150 mg in am for depression and anxiety Clonazepam 0.5 mg four times a day Medication Management and Follow-Up- Plan:- Schedule follow-up appointments every 2-3 months to monitor the patient's response to the medication regimen.- Reinforce the importance of avoiding recreational drug use due to potential neurotoxicity and interactions with prescribed medications 3. Primary insomnia -work on sleep schedule in therapy sleep hygiene educated Melatonin 10 mg otc nightly. Trazodone 100 at bedtime 4. Tardive dyskinesia - [employer] insurance denied and appeal does not want rx - monitor patient will see neurologist about movement 06/08 educated on medication AIMS= 11 12/26/21 5 dry mouth educated on dry mouth and use Biotine disucss medications and dry mouth . Long-term drug therapy 06/23/2024 Excoriation (skin-picking) disorder (ICD-10 - F42.4) 06/30/2024 Excoriation (skin-picking) disorder (ICD-10 - F42.4) 10/15/2023 Generalized anxiety disorder (ICD-10 - F41.1) 10/29/2023 Generalized anxiety disorder (ICD-10 - F41.1) 11/12/2023 Post-traumatic stress disorder, chronic (ICD-10 - F43.12) Post-Traumatic Stress Disorder (PTSD): Care Instructions material was published 1. Mild bipolar disorder -wants 30 days refills only r/t co-pays Vraylar 3 mg daily eat with rx for psychosis AIMS=11 12/26/21 AIMS= 02/05/23 lamotrigine 200 mg po bid obtain labs reviewed Endo/PCP continue therapy hx parathyroid abnormal see specialist - parathyroid and vit d educated on all medications, benefits, side effects and risk, and educated on depression, anxiety, and , mood d/o and educated on compliance of medications, appointment's, continue therapy discussion with patient about course of treatment and patient instructions. Lamotriginelamotrigine has a serious rashes requiring hospitalization and discontinue treatment including Magdy Cem syndrome rare case of toxic epidermal necrolysis and cache related deaths.Incidence with adjunct of epilepsy treatment 0.8% in 2 to 16 years old and 0.3% in adults, bipolarand other mood disorders incidence 0.8% this initial monotherapy and 0.13% as adjunctivetreatment.Oth er risk factor may include concomitant use of valproate acid derivative or exceeding initiallamotrigine does or does as clinician recommendation; most life-threatening rash of occurring first 2 to 8 week of treatment with isolated cases after prolonged treatment; though benign may occur,discontinue treatment at first sign of rash unless clearly not a drug related; TC treatment may notprevent trash from becoming life-threatening or permanently disabling or disfiguring. Comment reaction include, nausea/vomiting, dizziness/vertigo, visual disturbances, somnolence,ataxia, pruritus/rash, pharyngitis, headache, rhinitis, diarrhea, fever, asthenia, insomnia, tremor,abdominal pain, cough, accidental injury, constipation, dysmenorrhea, incoordination, anxiety,seizures, irritability, anorexia, xerostomia, and photosensitivity.Seriou s reactions include: Rash, severe; Christina Cem syndrome; toxic epidermal necrosis;injury edema, hypersensitivity reactions. Including fatal, multiple organ failure to safe fatal, rash witheosinophilia systemic symptoms, DIC, neutropenia, leukopenia, thrombocytopenia, pancytopenia,aplastic anemia, hemolytic anemia, i pancreatitis, hepatic failure, rhabdomyolysis, worsening ofsuicidal ideation, worsening of depression, cleft lip/palate [first trimester use]DO not Change Cosmetic, perfumes or soap for next 4 weeks. The patient was advice to take lamotrigine as prescribed the patient was instructed not to deviatefrom the prescription dosages. Stop lamotrigine is the first sign of rash. Patient was insisted to informoffice if any of the serious side effect develops. 2. Generalized anxiety disorder - Effexor 75 mg in am Sertraline 150 mg in am for depression and anxiety Clonazepam 0.5 mg four times a day Medication Management and Follow-Up- Plan:- Schedule follow-up appointments every 2-3 months to monitor the patient's response to the medication regimen.- Reinforce the importance of avoiding recreational drug use due to potential neurotoxicity and interactions with prescribed medications 3. Primary insomnia -work on sleep schedule in therapy sleep hygiene Melatonin 10 mg otc nightly. Trazodone 100 at bedtime 4. Tardive dyskinesia - d/c [employer] insurance denied and appeal does not want rx - monitor patient will see neurologist about movement 06/08 educated on medication AIMS= 12/26/21 5. Long-term drug therapy 12/03/2023 Generalized anxiety disorder (ICD-10 - F41.1) 11/12/2023 Generalized anxiety disorder (ICD-10 - F41.1) 01/21/2024 Excoriation (skin-picking) disorder (ICD-10 - F42.4) 02/28/2024 Post-traumatic stress disorder, chronic (ICD-10 - F43.12) Post-Traumatic Stress Disorder (PTSD): Care Instructions material was published 1. Mild bipolar disorder -wants 30 days refills only r/t co-pays Vraylar 3 mg daily eat with rx for psychosis AIMS=12/26/21 AIMS= 02/05/23 lamotrigine 200 mg po bid obtain labs reviewed Endo/PCP continue therapy hx parathyroid abnormal see specialist - parathyroid and vit d educated on all medications, benefits, side effects and risk, and educated on depression, anxiety, and , mood d/o and educated on compliance of medications, appointment's, continue therapy discussion with patient about course of treatment and patient instructions. Lamotriginelamotrigine has a serious rashes requiring hospitalization and discontinue treatment including Magdy Cem syndrome rare case of toxic epidermal necrolysis and cache related deaths.Incidence with adjunct of epilepsy treatment 0.8% in 2 to 16 years old and 0.3% in adults, bipolarand other mood disorders incidence 0.8% this initial monotherapy and 0.13% as adjunctivetreatment.Oth er risk factor may include concomitant use of valproate acid derivative or exceeding initiallamotrigine does or does as clinician recommendation; most life-threatening rash of occurring first 2 to 8 week of treatment with isolated cases after prolonged treatment; though benign may occur,discontinue treatment at first sign of rash unless clearly not a drug related; TC treatment may notprevent trash from becoming life-threatening or permanently disabling or disfiguring. Comment reaction include, nausea/vomiting, dizziness/vertigo, visual disturbances, somnolence,ataxia, pruritus/rash, pharyngitis, headache, rhinitis, diarrhea, fever, asthenia, insomnia, tremor,abdominal pain, cough, accidental injury, constipation, dysmenorrhea, incoordination, anxiety,seizures, irritability, anorexia, xerostomia, and photosensitivity.Seriou s reactions include: Rash, severe; Christina Cem syndrome; toxic epidermal necrosis;injury edema, hypersensitivity reactions. Including fatal, multiple organ failure to safe fatal, rash witheosinophilia systemic symptoms, DIC, neutropenia, leukopenia, thrombocytopenia, pancytopenia,aplastic anemia, hemolytic anemia, i pancreatitis, hepatic failure, rhabdomyolysis, worsening ofsuicidal ideation, worsening of depression, cleft lip/palate [first trimester use]DO not Change Cosmetic, perfumes or soap for next 4 weeks. The patient was advice to take lamotrigine as prescribed the patient was instructed not to deviatefrom the prescription dosages. Stop lamotrigine is the first sign of rash. Patient was insisted to informoffice if any of the serious side effect develops. 2. Generalized anxiety disorder - Effexor 75 mg in am Sertraline 150 mg in am for depression and anxiety Clonazepam 0.5 mg four times a day Medication Management and Follow-Up- Plan:- Schedule follow-up appointments every 2-3 months to monitor the patient's response to the medication regimen.- Reinforce the importance of avoiding recreational drug use due to potential neurotoxicity and interactions with prescribed medications 3. Primary insomnia -work on sleep schedule in therapy sleep hygiene educated Melatonin 10 mg otc nightly. Trazodone 100 at bedtime 4. Tardive dyskinesia - [employer] insurance denied and appeal does not want rx - monitor patient will see neurologist about movement 06/08 educated on medication AIMS= 11 12/26/21 5 dry mouth educated on dry mouth and use Biotine disucss medications and dry mouth . Long-term drug therapy 02/25/2024 Excoriation (skin-picking) disorder (ICD-10 - F42.4) 07/28/2024 Depressed bipolar disorder (ICD-10 - F31.9) 08/18/2024 Generalized anxiety disorder (ICD-10 - F41.1) Learning About Generalized Anxiety Disorder material was published, Generalized Anxiety Disorder: Care Instructions material was published, Learning About Anxiety Disorders material was published 1. bipolar disorder -wants 30 days refills only r/t co-pays Vraylar 3 mg daily eat with rx for psychosis AIMS=11 12/26/21 AIMS= 02/05/23 AIMS= 2 08/18/24 missing teeth and reported shakes once in a while rt hand lamotrigine 200 mg po bid labs reviewed and scanned into chart continue therapy hx parathyroid abnormal see specialist - parathyroid and vit d educated on all medications, benefits, side effects and risk, and educated on depression, anxiety, and , mood d/o and educated on compliance of medications, appointment's, continue therapy discussion with patient about course of treatment and patient instructions. Lamotriginelamotrigine has a serious rashes requiring hospitalization and discontinue treatment including Magdy Cem syndrome rare case of toxic epidermal necrolysis and cache related deaths.Incidence with adjunct of epilepsy treatment 0.8% in 2 to 16 years old and 0.3% in adults, bipolarand other mood disorders incidence 0.8% this initial monotherapy and 0.13% as adjunctivetreatment.Oth er risk factor may include concomitant use of valproate acid derivative or exceeding initiallamotrigine does or does as clinician recommendation; most life-threatening rash of occurring first 2 to 8 week of treatment with isolated cases after prolonged treatment; though benign may occur,discontinue treatment at first sign of rash unless clearly not a drug related; TC treatment may notprevent trash from becoming life-threatening or permanently disabling or disfiguring. Comment reaction include, nausea/vomiting, dizziness/vertigo, visual disturbances, somnolence,ataxia, pruritus/rash, pharyngitis, headache, rhinitis, diarrhea, fever, asthenia, insomnia, tremor,abdominal pain, cough, accidental injury, constipation, dysmenorrhea, incoordination, anxiety,seizures, irritability, anorexia, xerostomia, and photosensitivity.Seriou s reactions include: Rash, severe; Christina Cem syndrome; toxic epidermal necrosis;injury edema, hypersensitivity reactions. Including fatal, multiple organ failure to safe fatal, rash witheosinophilia systemic symptoms, DIC, neutropenia, leukopenia, thrombocytopenia, pancytopenia,aplastic anemia, hemolytic anemia, i pancreatitis, hepatic failure, rhabdomyolysis, worsening ofsuicidal ideation, worsening of depression, cleft lip/palate [first trimester use]DO not Change Cosmetic, perfumes or soap for next 4 weeks. The patient was advice to take lamotrigine as prescribed the patient was instructed not to deviatefrom the prescription dosages. Stop lamotrigine is the first sign of rash. Patient was insisted to informoffice if any of the serious side effect develops. 2. Generalized anxiety disorder - Effexor 75 mg in am Sertraline 150 mg in am for depression and anxiety Clonazepam 0.5 mg four times a day Medication Management and Follow-Up- Plan:- Schedule follow-up appointments every 2-3 months to monitor the patient's response to the medication regimen.- Reinforce the importance of avoiding recreational drug use due to potential neurotoxicity and interactions with prescribed medications 3. Primary insomnia -work on sleep schedule in therapy sleep hygiene educated Melatonin 10 mg otc nightly. Trazodone 100 at bedtime 4. Tardive dyskinesia - [employer] insurance denied and appeal does not want rx - monitor patient will see neurologist about movement 06/08 educated on medication AIMS= 11 12/26/21 AIMS= 2 08/18/24 missing teeth and reported shakes once in a while rt hand 5 dry mouth educated on dry mouth and use Biotine disucss medications and dry mouth . Long-term drug therapy 09/12/2024 Depressed bipolar disorder (ICD-10 - F31.9) 08/18/2024 Depressed bipolar disorder (ICD-10 - F31.9) 09/24/2023 Other bipolar disorder (ICD-10 - F31.89) 08/18/2024 Primary insomnia (ICD-10 - F51.01) Insomnia: Care Instructions material was published, Learning About Sleep[facility] Well material was published, Insomnia: Care Instructions material was published, Learning About Sleeping Well material was published 1. bipolar disorder -wants 30 days refills only r/t co-pays Vraylar 3 mg daily eat with rx for psychosis AIMS=11 12/26/21 AIMS= 02/05/23 AIMS= 2 08/18/24 missing teeth and reported shakes once in a while rt hand lamotrigine 200 mg po bid labs reviewed and scanned into chart continue therapy hx parathyroid abnormal see specialist - parathyroid and vit d educated on all medications, benefits, side effects and risk, and educated on depression, anxiety, and , mood d/o and educated on compliance of medications, appointment's, continue therapy discussion with patient about course of treatment and patient instructions. Lamotriginelamotrigine has a serious rashes requiring hospitalization and discontinue treatment including Magdy Cem syndrome rare case of toxic epidermal necrolysis and cache related deaths.Incidence with adjunct of epilepsy treatment 0.8% in 2 to 16 years old and 0.3% in adults, bipolarand other mood disorders incidence 0.8% this initial monotherapy and 0.13% as adjunctivetreatment.Oth er risk factor may include concomitant use of valproate acid derivative or exceeding initiallamotrigine does or does as clinician recommendation; most life-threatening rash of occurring first 2 to 8 week of treatment with isolated cases after prolonged treatment; though benign may occur,discontinue treatment at first sign of rash unless clearly not a drug related; TC treatment may notprevent trash from becoming life-threatening or permanently disabling or disfiguring. Comment reaction include, nausea/vomiting, dizziness/vertigo, visual disturbances, somnolence,ataxia, pruritus/rash, pharyngitis, headache, rhinitis, diarrhea, fever, asthenia, insomnia, tremor,abdominal pain, cough, accidental injury, constipation, dysmenorrhea, incoordination, anxiety,seizures, irritability, anorexia, xerostomia, and photosensitivity.Seriou s reactions include: Rash, severe; Christina Cem syndrome; toxic epidermal necrosis;injury edema, hypersensitivity reactions. Including fatal, multiple organ failure to safe fatal, rash witheosinophilia systemic symptoms, DIC, neutropenia, leukopenia, thrombocytopenia, pancytopenia,aplastic anemia, hemolytic anemia, i pancreatitis, hepatic failure, rhabdomyolysis, worsening ofsuicidal ideation, worsening of depression, cleft lip/palate [first trimester use]DO not Change Cosmetic, perfumes or soap for next 4 weeks. The patient was advice to take lamotrigine as prescribed the patient was instructed not to deviatefrom the prescription dosages. Stop lamotrigine is the first sign of rash. Patient was insisted to informoffice if any of the serious side effect develops. 2. Generalized anxiety disorder - Effexor 75 mg in am Sertraline 150 mg in am for depression and anxiety Clonazepam 0.5 mg four times a day Medication Management and Follow-Up- Plan:- Schedule follow-up appointments every 2-3 months to monitor the patient's response to the medication regimen.- Reinforce the importance of avoiding recreational drug use due to potential neurotoxicity and interactions with prescribed medications 3. Primary insomnia -work on sleep schedule in therapy sleep hygiene educated Melatonin 10 mg otc nightly. Trazodone 100 at bedtime 4. Tardive dyskinesia - [employer] insurance denied and appeal does not want rx - monitor patient will see neurologist about movement 06/08 educated on medication AIMS= 11 12/26/21 AIMS= 2 08/18/24 missing teeth and reported shakes once in a while rt hand 5 dry mouth educated on dry mouth and use Biotine disucss medications and dry mouth . Long-term drug therapy 11/12/2023 Other detention (current) drug therapy (ICD-10 - Z79.899) Medication Refill: Care Instructions material was published 1. Mild bipolar disorder -wants 30 days refills only r/t co-pays Vraylar 3 mg daily eat with rx for psychosis AIMS=11 12/26/21 AIMS= 02/05/23 lamotrigine 200 mg po bid obtain labs reviewed Endo/PCP continue therapy hx parathyroid abnormal see specialist - parathyroid and vit d educated on all medications, benefits, side effects and risk, and educated on depression, anxiety, and , mood d/o and educated on compliance of medications, appointment's, continue therapy discussion with patient about course of treatment and patient instructions. Lamotriginelamotrigine has a serious rashes requiring hospitalization and discontinue treatment including Magdy Cem syndrome rare case of toxic epidermal necrolysis and cache related deaths.Incidence with adjunct of epilepsy treatment 0.8% in 2 to 16 years old and 0.3% in adults, bipolarand other mood disorders incidence 0.8% this initial monotherapy and 0.13% as adjunctivetreatment.Oth er risk factor may include concomitant use of valproate acid derivative or exceeding initiallamotrigine does or does as clinician recommendation; most life-threatening rash of occurring first 2 to 8 week of treatment with isolated cases after prolonged treatment; though benign may occur,discontinue treatment at first sign of rash unless clearly not a drug related; TC treatment may notprevent trash from becoming life-threatening or permanently disabling or disfiguring. Comment reaction include, nausea/vomiting, dizziness/vertigo, visual disturbances, somnolence,ataxia, pruritus/rash, pharyngitis, headache, rhinitis, diarrhea, fever, asthenia, insomnia, tremor,abdominal pain, cough, accidental injury, constipation, dysmenorrhea, incoordination, anxiety,seizures, irritability, anorexia, xerostomia, and photosensitivity.Seriou s reactions include: Rash, severe; Christina Cem syndrome; toxic epidermal necrosis;injury edema, hypersensitivity reactions. Including fatal, multiple organ failure to safe fatal, rash witheosinophilia systemic symptoms, DIC, neutropenia, leukopenia, thrombocytopenia, pancytopenia,aplastic anemia, hemolytic anemia, i pancreatitis, hepatic failure, rhabdomyolysis, worsening ofsuicidal ideation, worsening of depression, cleft lip/palate [first trimester use]DO not Change Cosmetic, perfumes or soap for next 4 weeks. The patient was advice to take lamotrigine as prescribed the patient was instructed not to deviatefrom the prescription dosages. Stop lamotrigine is the first sign of rash. Patient was insisted to informoffice if any of the serious side effect develops. 2. Generalized anxiety disorder - Effexor 75 mg in am Sertraline 150 mg in am for depression and anxiety Clonazepam 0.5 mg four times a day Medication Management and Follow-Up- Plan:- Schedule follow-up appointments every 2-3 months to monitor the patient's response to the medication regimen.- Reinforce the importance of avoiding recreational drug use due to potential neurotoxicity and interactions with prescribed medications 3. Primary insomnia -work on sleep schedule in therapy sleep hygiene Melatonin 10 mg otc nightly. Trazodone 100 at bedtime 4. Tardive dyskinesia - d/c [employer] insurance denied and appeal does not want rx - monitor patient will see neurologist about movement 06/08 educated on medication AIMS= 12/26/21 5. Long-term drug therapy 05/26/2024 Other detention (current) drug therapy (ICD-10 - Z79.899) Medication Refill: Care Instructions material was published 1. bipolar disorder -wants 30 days refills only r/t co-pays Vraylar 3 mg daily eat with rx for psychosis AIMS=12/26/21 AIMS= 02/05/23 lamotrigine 200 mg po bid labs reviewed continue therapy hx parathyroid abnormal see specialist - parathyroid and vit d educated on all medications, benefits, side effects and risk, and educated on depression, anxiety, and , mood d/o and educated on compliance of medications, appointment's, continue therapy discussion with patient about course of treatment and patient instructions. Lamotriginelamotrigine has a serious rashes requiring hospitalization and discontinue treatment including Magdy Cem syndrome rare case of toxic epidermal necrolysis and cache related deaths.Incidence with adjunct of epilepsy treatment 0.8% in 2 to 16 years old and 0.3% in adults, bipolarand other mood disorders incidence 0.8% this initial monotherapy and 0.13% as adjunctivetreatment.Oth er risk factor may include concomitant use of valproate acid derivative or exceeding initiallamotrigine does or does as clinician recommendation; most life-threatening rash of occurring first 2 to 8 week of treatment with isolated cases after prolonged treatment; though benign may occur,discontinue treatment at first sign of rash unless clearly not a drug related; TC treatment may notprevent trash from becoming life-threatening or permanently disabling or disfiguring. Comment reaction include, nausea/vomiting, dizziness/vertigo, visual disturbances, somnolence,ataxia, pruritus/rash, pharyngitis, headache, rhinitis, diarrhea, fever, asthenia, insomnia, tremor,abdominal pain, cough, accidental injury, constipation, dysmenorrhea, incoordination, anxiety,seizures, irritability, anorexia, xerostomia, and photosensitivity.Seriou s reactions include: Rash, severe; Christina Cem syndrome; toxic epidermal necrosis;injury edema, hypersensitivity reactions. Including fatal, multiple organ failure to safe fatal, rash witheosinophilia systemic symptoms, DIC, neutropenia, leukopenia, thrombocytopenia, pancytopenia,aplastic anemia, hemolytic anemia, i pancreatitis, hepatic failure, rhabdomyolysis, worsening ofsuicidal ideation, worsening of depression, cleft lip/palate [first trimester use]DO not Change Cosmetic, perfumes or soap for next 4 weeks. The patient was advice to take lamotrigine as prescribed the patient was instructed not to deviatefrom the prescription dosages. Stop lamotrigine is the first sign of rash. Patient was insisted to informoffice if any of the serious side effect develops. 2. Generalized anxiety disorder - Effexor 75 mg in am Sertraline 150 mg in am for depression and anxiety Clonazepam 0.5 mg four times a day Medication Management and Follow-Up- Plan:- Schedule follow-up appointments every 2-3 months to monitor the patient's response to the medication regimen.- Reinforce the importance of avoiding recreational drug use due to potential neurotoxicity and interactions with prescribed medications 3. Primary insomnia -work on sleep schedule in therapy sleep hygiene educated Melatonin 10 mg otc nightly. Trazodone 100 at bedtime 4. Tardive dyskinesia - [employer] insurance denied and appeal does not want rx - monitor patient will see neurologist about movement 06/08 educated on medication AIMS= 11 12/26/21 5 dry mouth educated on dry mouth and use Biotine disucss medications and dry mouth . 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 Mild bipolar disorder -wants 30 days refills only r/t co-pays Vraylar 3 mg daily eat with rx for psychosis AIMS=12/26/21 AIMS= 02/05/23 lamotrigine 200 mg po bid obtain labs reviewed Endo/PCP continue therapy hx parathyroid abnormal see specialist - parathyroid and vit d educated on all medications, benefits, side effects and risk, and educated on depression, anxiety, and , mood d/o and educated on compliance of medications, appointment's, continue therapy discussion with patient about course of treatment and patient instructions. Lamotriginelamotrigine has a serious rashes requiring hospitalization and discontinue treatment including Magdy Cem syndrome rare case of toxic epidermal necrolysis and cache related deaths.Incidence with adjunct of epilepsy treatment 0.8% in 2 to 16 years old and 0.3% in adults, bipolarand other mood disorders incidence 0.8% this initial monotherapy and 0.13% as adjunctivetreatment.Oth er risk factor may include concomitant use of valproate acid derivative or exceeding initiallamotrigine does or does as clinician recommendation; most life-threatening rash of occurring first 2 to 8 week of treatment with isolated cases after prolonged treatment; though benign may occur,discontinue treatment at first sign of rash unless clearly not a drug related; TC treatment may notprevent trash from becoming life-threatening or permanently disabling or disfiguring. Comment reaction include, nausea/vomiting, dizziness/vertigo, visual disturbances, somnolence,ataxia, pruritus/rash, pharyngitis, headache, rhinitis, diarrhea, fever, asthenia, insomnia, tremor,abdominal pain, cough, accidental injury, constipation, dysmenorrhea, incoordination, anxiety,seizures, irritability, anorexia, xerostomia, and photosensitivity.Seriou s reactions include: Rash, severe; Christina Cem syndrome; toxic epidermal necrosis;injury edema, hypersensitivity reactions. Including fatal, multiple organ failure to safe fatal, rash witheosinophilia systemic symptoms, DIC, neutropenia, leukopenia, thrombocytopenia, pancytopenia,aplastic anemia, hemolytic anemia, i pancreatitis, hepatic failure, rhabdomyolysis, worsening ofsuicidal ideation, worsening of depression, cleft lip/palate [first trimester use]DO not Change Cosmetic, perfumes or soap for next 4 weeks. The patient was advice to take lamotrigine as prescribed the patient was instructed not to deviatefrom the prescription dosages. Stop lamotrigine is the first sign of rash. Patient was insisted to informoffice if any of the serious side effect develops. 2. Generalized anxiety disorder - Effexor 75 mg in am Sertraline 150 mg in am for depression and anxiety Clonazepam 0.5 mg four times a day Medication Management and Follow-Up- Plan:- Schedule follow-up appointments every 2-3 months to monitor the patient's response to the medication regimen.- Reinforce the importance of avoiding recreational drug use due to potential neurotoxicity and interactions with prescribed medications 3. Primary insomnia -work on sleep schedule in therapy sleep hygiene educated Melatonin 10 mg otc nightly. Trazodone 100 at bedtime 4. Tardive dyskinesia - [employer] insurance denied and appeal does not want rx - monitor patient will see neurologist about movement 06/08 educated on medication AIMS= 11 12/26/21 5 dry mouth educated on dry mouth and use Biotine disucss medications and dry mouth . Long-term drug therapy 02/28/2024 Excoriation (skin-picking) disorder (ICD-10 - F42.4) Learning About Skin Picking Disorder material was published, Obsessive-Comp ulsive Disorder: Care Instructions material was published, Learning About Skin Picking Disorder material was published 1. Mild bipolar disorder -wants 30 days refills only r/t co-pays Vraylar 3 mg daily eat with rx for psychosis AIMS=11 12/26/21 AIMS= 02/05/23 lamotrigine 200 mg po bid obtain labs reviewed Endo/PCP continue therapy hx parathyroid abnormal see specialist - parathyroid and vit d educated on all medications, benefits, side effects and risk, and educated on depression, anxiety, and , mood d/o and educated on compliance of medications, appointment's, continue therapy discussion with patient about course of treatment and patient instructions. Lamotriginelamotrigine has a serious rashes requiring hospitalization and discontinue treatment including Magdy Cem syndrome rare case of toxic epidermal necrolysis and cache related deaths.Incidence with adjunct of epilepsy treatment 0.8% in 2 to 16 years old and 0.3% in adults, bipolarand other mood disorders incidence 0.8% this initial monotherapy and 0.13% as adjunctivetreatment.Oth er risk factor may include concomitant use of valproate acid derivative or exceeding initiallamotrigine does or does as clinician recommendation; most life-threatening rash of occurring first 2 to 8 week of treatment with isolated cases after prolonged treatment; though benign may occur,discontinue treatment at first sign of rash unless clearly not a drug related; TC treatment may notprevent trash from becoming life-threatening or permanently disabling or disfiguring. Comment reaction include, nausea/vomiting, dizziness/vertigo, visual disturbances, somnolence,ataxia, pruritus/rash, pharyngitis, headache, rhinitis, diarrhea, fever, asthenia, insomnia, tremor,abdominal pain, cough, accidental injury, constipation, dysmenorrhea, incoordination, anxiety,seizures, irritability, anorexia, xerostomia, and photosensitivity.Seriou s reactions include: Rash, severe; Christina Cem syndrome; toxic epidermal necrosis;injury edema, hypersensitivity reactions. Including fatal, multiple organ failure to safe fatal, rash witheosinophilia systemic symptoms, DIC, neutropenia, leukopenia, thrombocytopenia, pancytopenia,aplastic anemia, hemolytic anemia, i pancreatitis, hepatic failure, rhabdomyolysis, worsening ofsuicidal ideation, worsening of depression, cleft lip/palate [first trimester use]DO not Change Cosmetic, perfumes or soap for next 4 weeks. The patient was advice to take lamotrigine as prescribed the patient was instructed not to deviatefrom the prescription dosages. Stop lamotrigine is the first sign of rash. Patient was insisted to informoffice if any of the serious side effect develops. 2. Generalized anxiety disorder - Effexor 75 mg in am Sertraline 150 mg in am for depression and anxiety Clonazepam 0.5 mg four times a day Medication Management and Follow-Up- Plan:- Schedule follow-up appointments every 2-3 months to monitor the patient's response to the medication regimen.- Reinforce the importance of avoiding recreational drug use due to potential neurotoxicity and interactions with prescribed medications 3. Primary insomnia -work on sleep schedule in therapy sleep hygiene educated Melatonin 10 mg otc nightly. Trazodone 100 at bedtime 4. Tardive dyskinesia - [employer] insurance denied and appeal does not want rx - monitor patient will see neurologist about movement 06/08 educated on medication AIMS= 11 12/26/21 5 dry mouth educated on dry mouth and use Biotine disucss medications and dry mouth . Long-term drug therapy 05/26/2024 Excoriation (skin-picking) disorder (ICD-10 - F42.4) Learning About Skin Picking Disorder material was published, Obsessive-Comp ulsive Disorder: Care Instructions material was published, Learning About Skin Picking Disorder material was published 1. bipolar disorder -wants 30 days refills only r/t co-pays Vraylar 3 mg daily eat with rx for psychosis AIMS=11 12/26/21 AIMS= 02/05/23 lamotrigine 200 mg po bid labs reviewed continue therapy hx parathyroid abnormal see specialist - parathyroid and vit d educated on all medications, benefits, side effects and risk, and educated on depression, anxiety, and , mood d/o and educated on compliance of medications, appointment's, continue therapy discussion with patient about course of treatment and patient instructions. Lamotriginelamotrigine has a serious rashes requiring hospitalization and discontinue treatment including Magdy Cem syndrome rare case of toxic epidermal necrolysis and cache related deaths.Incidence with adjunct of epilepsy treatment 0.8% in 2 to 16 years old and 0.3% in adults, bipolarand other mood disorders incidence 0.8% this initial monotherapy and 0.13% as adjunctivetreatment.Oth er risk factor may include concomitant use of valproate acid derivative or exceeding initiallamotrigine does or does as clinician recommendation; most life-threatening rash of occurring first 2 to 8 week of treatment with isolated cases after prolonged treatment; though benign may occur,discontinue treatment at first sign of rash unless clearly not a drug related; TC treatment may notprevent trash from becoming life-threatening or permanently disabling or disfiguring. Comment reaction include, nausea/vomiting, dizziness/vertigo, visual disturbances, somnolence,ataxia, pruritus/rash, pharyngitis, headache, rhinitis, diarrhea, fever, asthenia, insomnia, tremor,abdominal pain, cough, accidental injury, constipation, dysmenorrhea, incoordination, anxiety,seizures, irritability, anorexia, xerostomia, and photosensitivity.Seriou s reactions include: Rash, severe; Christina Cem syndrome; toxic epidermal necrosis;injury edema, hypersensitivity reactions. Including fatal, multiple organ failure to safe fatal, rash witheosinophilia systemic symptoms, DIC, neutropenia, leukopenia, thrombocytopenia, pancytopenia,aplastic anemia, hemolytic anemia, i pancreatitis, hepatic failure, rhabdomyolysis, worsening ofsuicidal ideation, worsening of depression, cleft lip/palate [first trimester use]DO not Change Cosmetic, perfumes or soap for next 4 weeks. The patient was advice to take lamotrigine as prescribed the patient was instructed not to deviatefrom the prescription dosages. Stop lamotrigine is the first sign of rash. Patient was insisted to informoffice if any of the serious side effect develops. 2. Generalized anxiety disorder - Effexor 75 mg in am Sertraline 150 mg in am for depression and anxiety Clonazepam 0.5 mg four times a day Medication Management and Follow-Up- Plan:- Schedule follow-up appointments every 2-3 months to monitor the patient's response to the medication regimen.- Reinforce the importance of avoiding recreational drug use due to potential neurotoxicity and interactions with prescribed medications 3. Primary insomnia -work on sleep schedule in therapy sleep hygiene educated Melatonin 10 mg otc nightly. Trazodone 100 at bedtime 4. Tardive dyskinesia - [employer] insurance denied and appeal does not want rx - monitor patient will see neurologist about movement 06/08 educated on medication AIMS= 11 12/26/21 5 dry mouth educated on dry mouth and use Biotine disucss medications and dry mouth . Long-term drug therapy 11/12/2023 Excoriation (skin-picking) disorder (ICD-10 - F42.4) Learning About Skin Picking Disorder material was published, Obsessive-Comp ulsive Disorder: Care Instructions material was published 1. Mild bipolar disorder -wants 30 days refills only r/t co-pays Vraylar 3 mg daily eat with rx for psychosis AIMS=11 12/26/21 AIMS= 02/05/23 lamotrigine 200 mg po bid obtain labs reviewed Endo/PCP continue therapy hx parathyroid abnormal see specialist - parathyroid and vit d educated on all medications, benefits, side effects and risk, and educated on depression, anxiety, and , mood d/o and educated on compliance of medications, appointment's, continue therapy discussion with patient about course of treatment and patient instructions. Lamotriginelamotrigine has a serious rashes requiring hospitalization and discontinue treatment including Magdy Cem syndrome rare case of toxic epidermal necrolysis and cache related deaths.Incidence with adjunct of epilepsy treatment 0.8% in 2 to 16 years old and 0.3% in adults, bipolarand other mood disorders incidence 0.8% this initial monotherapy and 0.13% as adjunctivetreatment.Oth er risk factor may include concomitant use of valproate acid derivative or exceeding initiallamotrigine does or does as clinician recommendation; most life-threatening rash of occurring first 2 to 8 week of treatment with isolated cases after prolonged treatment; though benign may occur,discontinue treatment at first sign of rash unless clearly not a drug related; TC treatment may notprevent trash from becoming life-threatening or permanently disabling or disfiguring. Comment reaction include, nausea/vomiting, dizziness/vertigo, visual disturbances, somnolence,ataxia, pruritus/rash, pharyngitis, headache, rhinitis, diarrhea, fever, asthenia, insomnia, tremor,abdominal pain, cough, accidental injury, constipation, dysmenorrhea, incoordination, anxiety,seizures, irritability, anorexia, xerostomia, and photosensitivity.Seriou s reactions include: Rash, severe; Christina Cem syndrome; toxic epidermal necrosis;injury edema, hypersensitivity reactions. Including fatal, multiple organ failure to safe fatal, rash witheosinophilia systemic symptoms, DIC, neutropenia, leukopenia, thrombocytopenia, pancytopenia,aplastic anemia, hemolytic anemia, i pancreatitis, hepatic failure, rhabdomyolysis, worsening ofsuicidal ideation, worsening of depression, cleft lip/palate [first trimester use]DO not Change Cosmetic, perfumes or soap for next 4 weeks. The patient was advice to take lamotrigine as prescribed the patient was instructed not to deviatefrom the prescription dosages. Stop lamotrigine is the first sign of rash. Patient was insisted to informoffice if any of the serious side effect develops. 2. Generalized anxiety disorder - Effexor 75 mg in am Sertraline 150 mg in am for depression and anxiety Clonazepam 0.5 mg four times a day Medication Management and Follow-Up- Plan:- Schedule follow-up appointments every 2-3 months to monitor the patient's response to the medication regimen.- Reinforce the importance of avoiding recreational drug use due to potential neurotoxicity and interactions with prescribed medications 3. Primary insomnia -work on sleep schedule in therapy sleep hygiene Melatonin 10 mg otc nightly. Trazodone 100 at bedtime 4. Tardive dyskinesia - d/c [employer] insurance denied and appeal does not want rx - monitor patient will see neurologist about movement 06/08 educated on medication AIMS= 11 12/26/21 5. Long-term drug therapy 08/18/2024 Post-traumatic stress disorder, chronic (ICD-10 - F43.12) Post-Traumatic Stress Disorder (PTSD): Care Instructions material was published 1. bipolar disorder -wants 30 days refills only r/t co-pays Vraylar 3 mg daily eat with rx for psychosis AIMS=11 12/26/21 AIMS= 02/05/23 AIMS= 2 08/18/24 missing teeth and reported shakes once in a while rt hand lamotrigine 200 mg po bid labs reviewed and scanned into chart continue therapy hx parathyroid abnormal see specialist - parathyroid and vit d educated on all medications, benefits, side effects and risk, and educated on depression, anxiety, and , mood d/o and educated on compliance of medications, appointment's, continue therapy discussion with patient about course of treatment and patient instructions. Lamotriginelamotrigine has a serious rashes requiring hospitalization and discontinue treatment including Magdy Cem syndrome rare case of toxic epidermal necrolysis and cache related deaths.Incidence with adjunct of epilepsy treatment 0.8% in 2 to 16 years old and 0.3% in adults, bipolarand other mood disorders incidence 0.8% this initial monotherapy and 0.13% as adjunctivetreatment.Oth er risk factor may include concomitant use of valproate acid derivative or exceeding initiallamotrigine does or does as clinician recommendation; most life-threatening rash of occurring first 2 to 8 week of treatment with isolated cases after prolonged treatment; though benign may occur,discontinue treatment at first sign of rash unless clearly not a drug related; TC treatment may notprevent trash from becoming life-threatening or permanently disabling or disfiguring. Comment reaction include, nausea/vomiting, dizziness/vertigo, visual disturbances, somnolence,ataxia, pruritus/rash, pharyngitis, headache, rhinitis, diarrhea, fever, asthenia, insomnia, tremor,abdominal pain, cough, accidental injury, constipation, dysmenorrhea, incoordination, anxiety,seizures, irritability, anorexia, xerostomia, and photosensitivity.Seriou s reactions include: Rash, severe; Christina Cem syndrome; toxic epidermal necrosis;injury edema, hypersensitivity reactions. Including fatal, multiple organ failure to safe fatal, rash witheosinophilia systemic symptoms, DIC, neutropenia, leukopenia, thrombocytopenia, pancytopenia,aplastic anemia, hemolytic anemia, i pancreatitis, hepatic failure, rhabdomyolysis, worsening ofsuicidal ideation, worsening of depression, cleft lip/palate [first trimester use]DO not Change Cosmetic, perfumes or soap for next 4 weeks. The patient was advice to take lamotrigine as prescribed the patient was instructed not to deviatefrom the prescription dosages. Stop lamotrigine is the first sign of rash. Patient was insisted to informoffice if any of the serious side effect develops. 2. Generalized anxiety disorder - Effexor 75 mg in am Sertraline 150 mg in am for depression and anxiety Clonazepam 0.5 mg four times a day Medication Management and Follow-Up- Plan:- Schedule follow-up appointments every 2-3 months to monitor the patient's response to the medication regimen.- Reinforce the importance of avoiding recreational drug use due to potential neurotoxicity and interactions with prescribed medications 3. Primary insomnia -work on sleep schedule in therapy sleep hygiene educated Melatonin 10 mg otc nightly. Trazodone 100 at bedtime 4. Tardive dyskinesia - [employer] insurance denied and appeal does not want rx - monitor patient will see neurologist about movement 06/08 educated on medication AIMS= 11 12/26/21 AIMS= 2 08/18/24 missing teeth and reported shakes once in a while rt hand 5 dry mouth educated on dry mouth and use Biotine disucss medications and dry mouth . Long-term drug therapy 08/18/2024 Other detention (current) drug therapy (ICD-10 - Z79.899) Medication Refill: Care Instructions material was published 1. bipolar disorder -wants 30 days refills only r/t co-pays Vraylar 3 mg daily eat with rx for psychosis AIMS=11 12/26/21 AIMS= 02/05/23 AIMS= 2 08/18/24 missing teeth and reported shakes once in a while rt hand lamotrigine 200 mg po bid labs reviewed and scanned into chart continue therapy hx parathyroid abnormal see specialist - parathyroid and vit d educated on all medications, benefits, side effects and risk, and educated on depression, anxiety, and , mood d/o and educated on compliance of medications, appointment's, continue therapy discussion with patient about course of treatment and patient instructions. Lamotriginelamotrigine has a serious rashes requiring hospitalization and discontinue treatment including Magdy Cem syndrome rare case of toxic epidermal necrolysis and cache related deaths.Incidence with adjunct of epilepsy treatment 0.8% in 2 to 16 years old and 0.3% in adults, bipolarand other mood disorders incidence 0.8% this initial monotherapy and 0.13% as adjunctivetreatment.Oth er risk factor may include concomitant use of valproate acid derivative or exceeding initiallamotrigine does or does as clinician recommendation; most life-threatening rash of occurring first 2 to 8 week of treatment with isolated cases after prolonged treatment; though benign may occur,discontinue treatment at first sign of rash unless clearly not a drug related; TC treatment may notprevent trash from becoming life-threatening or permanently disabling or disfiguring. Comment reaction include, nausea/vomiting, dizziness/vertigo, visual disturbances, somnolence,ataxia, pruritus/rash, pharyngitis, headache, rhinitis, diarrhea, fever, asthenia, insomnia, tremor,abdominal pain, cough, accidental injury, constipation, dysmenorrhea, incoordination, anxiety,seizures, irritability, anorexia, xerostomia, and photosensitivity.Seriou s reactions include: Rash, severe; Christina Cem syndrome; toxic epidermal necrosis;injury edema, hypersensitivity reactions. Including fatal, multiple organ failure to safe fatal, rash witheosinophilia systemic symptoms, DIC, neutropenia, leukopenia, thrombocytopenia, pancytopenia,aplastic anemia, hemolytic anemia, i pancreatitis, hepatic failure, rhabdomyolysis, worsening ofsuicidal ideation, worsening of depression, cleft lip/palate [first trimester use]DO not Change Cosmetic, perfumes or soap for next 4 weeks. The patient was advice to take lamotrigine as prescribed the patient was instructed not to deviatefrom the prescription dosages. Stop lamotrigine is the first sign of rash. Patient was insisted to informoffice if any of the serious side effect develops. 2. Generalized anxiety disorder - Effexor 75 mg in am Sertraline 150 mg in am for depression and anxiety Clonazepam 0.5 mg four times a day Medication Management and Follow-Up- Plan:- Schedule follow-up appointments every 2-3 months to monitor the patient's response to the medication regimen.- Reinforce the importance of avoiding recreational drug use due to potential neurotoxicity and interactions with prescribed medications 3. Primary insomnia -work on sleep schedule in therapy sleep hygiene educated Melatonin 10 mg otc nightly. Trazodone 100 at bedtime 4. Tardive dyskinesia - [employer] insurance denied and appeal does not want rx - monitor patient will see neurologist about movement 06/08 educated on medication AIMS= 11 12/26/21 AIMS= 2 08/18/24 missing teeth and reported shakes once in a while rt hand 5 dry mouth educated on dry mouth and use Biotine disucss medications and dry mouth . 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 Mild bipolar disorder -wants 30 days refills only r/t co-pays Vraylar 3 mg daily eat with rx for psychosis AIMS=11 12/26/21 AIMS= 02/05/23 lamotrigine 200 mg po bid obtain labs reviewed Endo/PCP continue therapy hx parathyroid abnormal see specialist - parathyroid and vit d educated on all medications, benefits, side effects and risk, and educated on depression, anxiety, and , mood d/o and educated on compliance of medications, appointment's, continue therapy discussion with patient about course of treatment and patient instructions. Lamotriginelamotrigine has a serious rashes requiring hospitalization and discontinue treatment including Magdy Cem syndrome rare case of toxic epidermal necrolysis and cache related deaths.Incidence with adjunct of epilepsy treatment 0.8% in 2 to 16 years old and 0.3% in adults, bipolarand other mood disorders incidence 0.8% this initial monotherapy and 0.13% as adjunctivetreatment.Oth er risk factor may include concomitant use of valproate acid derivative or exceeding initiallamotrigine does or does as clinician recommendation; most life-threatening rash of occurring first 2 to 8 week of treatment with isolated cases after prolonged treatment; though benign may occur,discontinue treatment at first sign of rash unless clearly not a drug related; TC treatment may notprevent trash from becoming life-threatening or permanently disabling or disfiguring. Comment reaction include, nausea/vomiting, dizziness/vertigo, visual disturbances, somnolence,ataxia, pruritus/rash, pharyngitis, headache, rhinitis, diarrhea, fever, asthenia, insomnia, tremor,abdominal pain, cough, accidental injury, constipation, dysmenorrhea, incoordination, anxiety,seizures, irritability, anorexia, xerostomia, and photosensitivity.Seriou s reactions include: Rash, severe; Christina Cem syndrome; toxic epidermal necrosis;injury edema, hypersensitivity reactions. Including fatal, multiple organ failure to safe fatal, rash witheosinophilia systemic symptoms, DIC, neutropenia, leukopenia, thrombocytopenia, pancytopenia,aplastic anemia, hemolytic anemia, i pancreatitis, hepatic failure, rhabdomyolysis, worsening ofsuicidal ideation, worsening of depression, cleft lip/palate [first trimester use]DO not Change Cosmetic, perfumes or soap for next 4 weeks. The patient was advice to take lamotrigine as prescribed the patient was instructed not to deviatefrom the prescription dosages. Stop lamotrigine is the first sign of rash. Patient was insisted to informoffice if any of the serious side effect develops. 2. Generalized anxiety disorder - Effexor 75 mg in am Sertraline 150 mg in am for depression and anxiety Clonazepam 0.5 mg four times a day Medication Management and Follow-Up- Plan:- Schedule follow-up appointments every 2-3 months to monitor the patient's response to the medication regimen.- Reinforce the importance of avoiding recreational drug use due to potential neurotoxicity and interactions with prescribed medications 3. Primary insomnia -work on sleep schedule in therapy sleep hygiene Melatonin 10 mg otc nightly. Trazodone 100 at bedtime 4. Tardive dyskinesia - d/c [employer] insurance denied and appeal does not want rx - monitor patient will see neurologist about movement 06/08 educated on medication AIMS= 12/26/21 5. 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 bipolar disorder -wants 30 days refills only r/t co-pays Vraylar 3 mg daily eat with rx for psychosis AIMS=12/26/21 AIMS= 02/05/23 lamotrigine 200 mg po bid labs reviewed continue therapy hx parathyroid abnormal see specialist - parathyroid and vit d educated on all medications, benefits, side effects and risk, and educated on depression, anxiety, and , mood d/o and educated on compliance of medications, appointment's, continue therapy discussion with patient about course of treatment and patient instructions. Lamotriginelamotrigine has a serious rashes requiring hospitalization and discontinue treatment including Magdy Cem syndrome rare case of toxic epidermal necrolysis and cache related deaths.Incidence with adjunct of epilepsy treatment 0.8% in 2 to 16 years old and 0.3% in adults, bipolarand other mood disorders incidence 0.8% this initial monotherapy and 0.13% as adjunctivetreatment.Oth er risk factor may include concomitant use of valproate acid derivative or exceeding initiallamotrigine does or does as clinician recommendation; most life-threatening rash of occurring first 2 to 8 week of treatment with isolated cases after prolonged treatment; though benign may occur,discontinue treatment at first sign of rash unless clearly not a drug related; TC treatment may notprevent trash from becoming life-threatening or permanently disabling or disfiguring. Comment reaction include, nausea/vomiting, dizziness/vertigo, visual disturbances, somnolence,ataxia, pruritus/rash, pharyngitis, headache, rhinitis, diarrhea, fever, asthenia, insomnia, tremor,abdominal pain, cough, accidental injury, constipation, dysmenorrhea, incoordination, anxiety,seizures, irritability, anorexia, xerostomia, and photosensitivity.Seriou s reactions include: Rash, severe; Christina Cem syndrome; toxic epidermal necrosis;injury edema, hypersensitivity reactions. Including fatal, multiple organ failure to safe fatal, rash witheosinophilia systemic symptoms, DIC, neutropenia, leukopenia, thrombocytopenia, pancytopenia,aplastic anemia, hemolytic anemia, i pancreatitis, hepatic failure, rhabdomyolysis, worsening ofsuicidal ideation, worsening of depression, cleft lip/palate [first trimester use]DO not Change Cosmetic, perfumes or soap for next 4 weeks. The patient was advice to take lamotrigine as prescribed the patient was instructed not to deviatefrom the prescription dosages. Stop lamotrigine is the first sign of rash. Patient was insisted to informoffice if any of the serious side effect develops. 2. Generalized anxiety disorder - Effexor 75 mg in am Sertraline 150 mg in am for depression and anxiety Clonazepam 0.5 mg four times a day Medication Management and Follow-Up- Plan:- Schedule follow-up appointments every 2-3 months to monitor the patient's response to the medication regimen.- Reinforce the importance of avoiding recreational drug use due to potential neurotoxicity and interactions with prescribed medications 3. Primary insomnia -work on sleep schedule in therapy sleep hygiene educated Melatonin 10 mg otc nightly. Trazodone 100 at bedtime 4. Tardive dyskinesia - [employer] insurance denied and appeal does not want rx - monitor patient will see neurologist about movement 06/08 educated on medication AIMS= 11 12/26/21 5 dry mouth educated on dry mouth and use Biotine disucss medications and dry mouth . 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 Mild bipolar disorder -wants 30 days refills only r/t co-pays Vraylar 3 mg daily eat with rx for psychosis AIMS=11 12/26/21 AIMS= 02/05/23 lamotrigine 200 mg po bid obtain labs reviewed Endo/PCP continue therapy hx parathyroid abnormal see specialist - parathyroid and vit d educated on all medications, benefits, side effects and risk, and educated on depression, anxiety, and , mood d/o and educated on compliance of medications, appointment's, continue therapy discussion with patient about course of treatment and patient instructions. Lamotriginelamotrigine has a serious rashes requiring hospitalization and discontinue treatment including Magdy Cem syndrome rare case of toxic epidermal necrolysis and cache related deaths.Incidence with adjunct of epilepsy treatment 0.8% in 2 to 16 years old and 0.3% in adults, bipolarand other mood disorders incidence 0.8% this initial monotherapy and 0.13% as adjunctivetreatment.Oth er risk factor may include concomitant use of valproate acid derivative or exceeding initiallamotrigine does or does as clinician recommendation; most life-threatening rash of occurring first 2 to 8 week of treatment with isolated cases after prolonged treatment; though benign may occur,discontinue treatment at first sign of rash unless clearly not a drug related; TC treatment may notprevent trash from becoming life-threatening or permanently disabling or disfiguring. Comment reaction include, nausea/vomiting, dizziness/vertigo, visual disturbances, somnolence,ataxia, pruritus/rash, pharyngitis, headache, rhinitis, diarrhea, fever, asthenia, insomnia, tremor,abdominal pain, cough, accidental injury, constipation, dysmenorrhea, incoordination, anxiety,seizures, irritability, anorexia, xerostomia, and photosensitivity.Seriou s reactions include: Rash, severe; Christina Cem syndrome; toxic epidermal necrosis;injury edema, hypersensitivity reactions. Including fatal, multiple organ failure to safe fatal, rash witheosinophilia systemic symptoms, DIC, neutropenia, leukopenia, thrombocytopenia, pancytopenia,aplastic anemia, hemolytic anemia, i pancreatitis, hepatic failure, rhabdomyolysis, worsening ofsuicidal ideation, worsening of depression, cleft lip/palate [first trimester use]DO not Change Cosmetic, perfumes or soap for next 4 weeks. The patient was advice to take lamotrigine as prescribed the patient was instructed not to deviatefrom the prescription dosages. Stop lamotrigine is the first sign of rash. Patient was insisted to informoffice if any of the serious side effect develops. 2. Generalized anxiety disorder - Effexor 75 mg in am Sertraline 150 mg in am for depression and anxiety Clonazepam 0.5 mg four times a day Medication Management and Follow-Up- Plan:- Schedule follow-up appointments every 2-3 months to monitor the patient's response to the medication regimen.- Reinforce the importance of avoiding recreational drug use due to potential neurotoxicity and interactions with prescribed medications 3. Primary insomnia -work on sleep schedule in therapy sleep hygiene educated Melatonin 10 mg otc nightly. Trazodone 100 at bedtime 4. Tardive dyskinesia - [employer] insurance denied and appeal does not want rx - monitor patient will see neurologist about movement 06/08 educated on medication AIMS= 11 12/26/21 5 dry mouth educated on dry mouth and use Biotine disucss medications and dry mouth . Long-term drug therapy 02/28/2024 Dry mouth (ICD-10 - R68.2) Dry Mouth: Care Instructions material was published 1. Mild bipolar disorder -wants 30 days refills only r/t co-pays Vraylar 3 mg daily eat with rx for psychosis AIMS=11 12/26/21 AIMS= 02/05/23 lamotrigine 200 mg po bid obtain labs reviewed Endo/PCP continue therapy hx parathyroid abnormal see specialist - parathyroid and vit d educated on all medications, benefits, side effects and risk, and educated on depression, anxiety, and , mood d/o and educated on compliance of medications, appointment's, continue therapy discussion with patient about course of treatment and patient instructions. Lamotriginelamotrigine has a serious rashes requiring hospitalization and discontinue treatment including Magdy Cem syndrome rare case of toxic epidermal necrolysis and cache related deaths.Incidence with adjunct of epilepsy treatment 0.8% in 2 to 16 years old and 0.3% in adults, bipolarand other mood disorders incidence 0.8% this initial monotherapy and 0.13% as adjunctivetreatment.Oth er risk factor may include concomitant use of valproate acid derivative or exceeding initiallamotrigine does or does as clinician recommendation; most life-threatening rash of occurring first 2 to 8 week of treatment with isolated cases after prolonged treatment; though benign may occur,discontinue treatment at first sign of rash unless clearly not a drug related; TC treatment may notprevent trash from becoming life-threatening or permanently disabling or disfiguring. Comment reaction include, nausea/vomiting, dizziness/vertigo, visual disturbances, somnolence,ataxia, pruritus/rash, pharyngitis, headache, rhinitis, diarrhea, fever, asthenia, insomnia, tremor,abdominal pain, cough, accidental injury, constipation, dysmenorrhea, incoordination, anxiety,seizures, irritability, anorexia, xerostomia, and photosensitivity.Seriou s reactions include: Rash, severe; Christina Cem syndrome; toxic epidermal necrosis;injury edema, hypersensitivity reactions. Including fatal, multiple organ failure to safe fatal, rash witheosinophilia systemic symptoms, DIC, neutropenia, leukopenia, thrombocytopenia, pancytopenia,aplastic anemia, hemolytic anemia, i pancreatitis, hepatic failure, rhabdomyolysis, worsening ofsuicidal ideation, worsening of depression, cleft lip/palate [first trimester use]DO not Change Cosmetic, perfumes or soap for next 4 weeks. The patient was advice to take lamotrigine as prescribed the patient was instructed not to deviatefrom the prescription dosages. Stop lamotrigine is the first sign of rash. Patient was insisted to informoffice if any of the serious side effect develops. 2. Generalized anxiety disorder - Effexor 75 mg in am Sertraline 150 mg in am for depression and anxiety Clonazepam 0.5 mg four times a day Medication Management and Follow-Up- Plan:- Schedule follow-up appointments every 2-3 months to monitor the patient's response to the medication regimen.- Reinforce the importance of avoiding recreational drug use due to potential neurotoxicity and interactions with prescribed medications 3. Primary insomnia -work on sleep schedule in therapy sleep hygiene educated Melatonin 10 mg otc nightly. Trazodone 100 at bedtime 4. Tardive dyskinesia - [employer] insurance denied and appeal does not want rx - monitor patient will see neurologist about movement 06/08 educated on medication AIMS= 11 12/26/21 5 dry mouth educated on dry mouth and use Biotine disucss medications and dry mouth . Long-term drug therapy 05/26/2024 Dry mouth (ICD-10 - R68.2) Dry Mouth: Care Instructions material was published 1. bipolar disorder -wants 30 days refills only r/t co-pays Vraylar 3 mg daily eat with rx for psychosis AIMS=11 12/26/21 AIMS= 02/05/23 lamotrigine 200 mg po bid labs reviewed continue therapy hx parathyroid abnormal see specialist - parathyroid and vit d educated on all medications, benefits, side effects and risk, and educated on depression, anxiety, and , mood d/o and educated on compliance of medications, appointment's, continue therapy discussion with patient about course of treatment and patient instructions. Lamotriginelamotrigine has a serious rashes requiring hospitalization and discontinue treatment including Magdy Cem syndrome rare case of toxic epidermal necrolysis and cache related deaths.Incidence with adjunct of epilepsy treatment 0.8% in 2 to 16 years old and 0.3% in adults, bipolarand other mood disorders incidence 0.8% this initial monotherapy and 0.13% as adjunctivetreatment.Oth er risk factor may include concomitant use of valproate acid derivative or exceeding initiallamotrigine does or does as clinician recommendation; most life-threatening rash of occurring first 2 to 8 week of treatment with isolated cases after prolonged treatment; though benign may occur,discontinue treatment at first sign of rash unless clearly not a drug related; TC treatment may notprevent trash from becoming life-threatening or permanently disabling or disfiguring. Comment reaction include, nausea/vomiting, dizziness/vertigo, visual disturbances, somnolence,ataxia, pruritus/rash, pharyngitis, headache, rhinitis, diarrhea, fever, asthenia, insomnia, tremor,abdominal pain, cough, accidental injury, constipation, dysmenorrhea, incoordination, anxiety,seizures, irritability, anorexia, xerostomia, and photosensitivity.Seriou s reactions include: Rash, severe; Christina Cem syndrome; toxic epidermal necrosis;injury edema, hypersensitivity reactions. Including fatal, multiple organ failure to safe fatal, rash witheosinophilia systemic symptoms, DIC, neutropenia, leukopenia, thrombocytopenia, pancytopenia,aplastic anemia, hemolytic anemia, i pancreatitis, hepatic failure, rhabdomyolysis, worsening ofsuicidal ideation, worsening of depression, cleft lip/palate [first trimester use]DO not Change Cosmetic, perfumes or soap for next 4 weeks. The patient was advice to take lamotrigine as prescribed the patient was instructed not to deviatefrom the prescription dosages. Stop lamotrigine is the first sign of rash. Patient was insisted to informoffice if any of the serious side effect develops. 2. Generalized anxiety disorder - Effexor 75 mg in am Sertraline 150 mg in am for depression and anxiety Clonazepam 0.5 mg four times a day Medication Management and Follow-Up- Plan:- Schedule follow-up appointments every 2-3 months to monitor the patient's response to the medication regimen.- Reinforce the importance of avoiding recreational drug use due to potential neurotoxicity and interactions with prescribed medications 3. Primary insomnia -work on sleep schedule in therapy sleep hygiene educated Melatonin 10 mg otc nightly. Trazodone 100 at bedtime 4. Tardive dyskinesia - [employer] insurance denied and appeal does not want rx - monitor patient will see neurologist about movement 06/08 educated on medication AIMS= 11 12/26/21 5 dry mouth educated on dry mouth and use Biotine disucss medications and dry mouth . Long-term drug therapy 08/18/2024 Excoriation (skin-picking) disorder (ICD-10 - F42.4) Learning About Skin Picking Disorder material was published, Obsessive-Comp ulsive Disorder: Care Instructions material was published, Learning About Skin Picking Disorder material was published 1. bipolar disorder -wants 30 days refills only r/t co-pays Vraylar 3 mg daily eat with rx for psychosis AIMS=11 12/26/21 AIMS= 02/05/23 AIMS= 2 08/18/24 missing teeth and reported shakes once in a while rt hand lamotrigine 200 mg po bid labs reviewed and scanned into chart continue therapy hx parathyroid abnormal see specialist - parathyroid and vit d educated on all medications, benefits, side effects and risk, and educated on depression, anxiety, and , mood d/o and educated on compliance of medications, appointment's, continue therapy discussion with patient about course of treatment and patient instructions. Lamotriginelamotrigine has a serious rashes requiring hospitalization and discontinue treatment including Magdy Cem syndrome rare case of toxic epidermal necrolysis and cache related deaths.Incidence with adjunct of epilepsy treatment 0.8% in 2 to 16 years old and 0.3% in adults, bipolarand other mood disorders incidence 0.8% this initial monotherapy and 0.13% as adjunctivetreatment.Oth er risk factor may include concomitant use of valproate acid derivative or exceeding initiallamotrigine does or does as clinician recommendation; most life-threatening rash of occurring first 2 to 8 week of treatment with isolated cases after prolonged treatment; though benign may occur,discontinue treatment at first sign of rash unless clearly not a drug related; TC treatment may notprevent trash from becoming life-threatening or permanently disabling or disfiguring. Comment reaction include, nausea/vomiting, dizziness/vertigo, visual disturbances, somnolence,ataxia, pruritus/rash, pharyngitis, headache, rhinitis, diarrhea, fever, asthenia, insomnia, tremor,abdominal pain, cough, accidental injury, constipation, dysmenorrhea, incoordination, anxiety,seizures, irritability, anorexia, xerostomia, and photosensitivity.Seriou s reactions include: Rash, severe; Christina Cem syndrome; toxic epidermal necrosis;injury edema, hypersensitivity reactions. Including fatal, multiple organ failure to safe fatal, rash witheosinophilia systemic symptoms, DIC, neutropenia, leukopenia, thrombocytopenia, pancytopenia,aplastic anemia, hemolytic anemia, i pancreatitis, hepatic failure, rhabdomyolysis, worsening ofsuicidal ideation, worsening of depression, cleft lip/palate [first trimester use]DO not Change Cosmetic, perfumes or soap for next 4 weeks. The patient was advice to take lamotrigine as prescribed the patient was instructed not to deviatefrom the prescription dosages. Stop lamotrigine is the first sign of rash. Patient was insisted to informoffice if any of the serious side effect develops. 2. Generalized anxiety disorder - Effexor 75 mg in am Sertraline 150 mg in am for depression and anxiety Clonazepam 0.5 mg four times a day Medication Management and Follow-Up- Plan:- Schedule follow-up appointments every 2-3 months to monitor the patient's response to the medication regimen.- Reinforce the importance of avoiding recreational drug use due to potential neurotoxicity and interactions with prescribed medications 3. Primary insomnia -work on sleep schedule in therapy sleep hygiene educated Melatonin 10 mg otc nightly. Trazodone 100 at bedtime 4. Tardive dyskinesia - [employer] insurance denied and appeal does not want rx - monitor patient will see neurologist about movement 06/08 educated on medication AIMS= 11 12/26/21 AIMS= 2 08/18/24 missing teeth and reported shakes once in a while rt hand 5 dry mouth educated on dry mouth and use Biotine disucss medications and dry mouth . 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 bipolar disorder -wants 30 days refills only r/t co-pays Vraylar 3 mg daily eat with rx for psychosis AIMS=12/26/21 AIMS= 02/05/23 AIMS= 2 08/18/24 missing teeth and reported shakes once in a while rt hand lamotrigine 200 mg po bid labs reviewed and scanned into chart continue therapy hx parathyroid abnormal see specialist - parathyroid and vit d educated on all medications, benefits, side effects and risk, and educated on depression, anxiety, and , mood d/o and educated on compliance of medications, appointment's, continue therapy discussion with patient about course of treatment and patient instructions. Lamotriginelamotrigine has a serious rashes requiring hospitalization and discontinue treatment including Magdy Cem syndrome rare case of toxic epidermal necrolysis and cache related deaths.Incidence with adjunct of epilepsy treatment 0.8% in 2 to 16 years old and 0.3% in adults, bipolarand other mood disorders incidence 0.8% this initial monotherapy and 0.13% as adjunctivetreatment.Oth er risk factor may include concomitant use of valproate acid derivative or exceeding initiallamotrigine does or does as clinician recommendation; most life-threatening rash of occurring first 2 to 8 week of treatment with isolated cases after prolonged treatment; though benign may occur,discontinue treatment at first sign of rash unless clearly not a drug related; TC treatment may notprevent trash from becoming life-threatening or permanently disabling or disfiguring. Comment reaction include, nausea/vomiting, dizziness/vertigo, visual disturbances, somnolence,ataxia, pruritus/rash, pharyngitis, headache, rhinitis, diarrhea, fever, asthenia, insomnia, tremor,abdominal pain, cough, accidental injury, constipation, dysmenorrhea, incoordination, anxiety,seizures, irritability, anorexia, xerostomia, and photosensitivity.Seriou s reactions include: Rash, severe; Christina Cem syndrome; toxic epidermal necrosis;injury edema, hypersensitivity reactions. Including fatal, multiple organ failure to safe fatal, rash witheosinophilia systemic symptoms, DIC, neutropenia, leukopenia, thrombocytopenia, pancytopenia,aplastic anemia, hemolytic anemia, i pancreatitis, hepatic failure, rhabdomyolysis, worsening ofsuicidal ideation, worsening of depression, cleft lip/palate [first trimester use]DO not Change Cosmetic, perfumes or soap for next 4 weeks. The patient was advice to take lamotrigine as prescribed the patient was instructed not to deviatefrom the prescription dosages. Stop lamotrigine is the first sign of rash. Patient was insisted to informoffice if any of the serious side effect develops. 2. Generalized anxiety disorder - Effexor 75 mg in am Sertraline 150 mg in am for depression and anxiety Clonazepam 0.5 mg four times a day Medication Management and Follow-Up- Plan:- Schedule follow-up appointments every 2-3 months to monitor the patient's response to the medication regimen.- Reinforce the importance of avoiding recreational drug use due to potential neurotoxicity and interactions with prescribed medications 3. Primary insomnia -work on sleep schedule in therapy sleep hygiene educated Melatonin 10 mg otc nightly. Trazodone 100 at bedtime 4. Tardive dyskinesia - [employer] insurance denied and appeal does not want rx - monitor patient will see neurologist about movement 06/08 educated on medication AIMS= 11 12/26/21 AIMS= 2 08/18/24 missing teeth and reported shakes once in a while rt hand 5 dry mouth educated on dry mouth and use Biotine disucss medications and dry mouth . Long-term drug therapy 08/18/2024 Dry mouth (ICD-10 - R68.2) Dry Mouth: Care Instructions material was published 1. bipolar disorder -wants 30 days refills only r/t co-pays Vraylar 3 mg daily eat with rx for psychosis AIMS=12/26/21 AIMS= 02/05/23 AIMS= 2 08/18/24 missing teeth and reported shakes once in a while rt hand lamotrigine 200 mg po bid labs reviewed and scanned into chart continue therapy hx parathyroid abnormal see specialist - parathyroid and vit d educated on all medications, benefits, side effects and risk, and educated on depression, anxiety, and , mood d/o and educated on compliance of medications, appointment's, continue therapy discussion with patient about course of treatment and patient instructions. Lamotriginelamotrigine has a serious rashes requiring hospitalization and discontinue treatment including Magdy Cem syndrome rare case of toxic epidermal necrolysis and cache related deaths.Incidence with adjunct of epilepsy treatment 0.8% in 2 to 16 years old and 0.3% in adults, bipolarand other mood disorders incidence 0.8% this initial monotherapy and 0.13% as adjunctivetreatment.Oth er risk factor may include concomitant use of valproate acid derivative or exceeding initiallamotrigine does or does as clinician recommendation; most life-threatening rash of occurring first 2 to 8 week of treatment with isolated cases after prolonged treatment; though benign may occur,discontinue treatment at first sign of rash unless clearly not a drug related; TC treatment may notprevent trash from becoming life-threatening or permanently disabling or disfiguring. Comment reaction include, nausea/vomiting, dizziness/vertigo, visual disturbances, somnolence,ataxia, pruritus/rash, pharyngitis, headache, rhinitis, diarrhea, fever, asthenia, insomnia, tremor,abdominal pain, cough, accidental injury, constipation, dysmenorrhea, incoordination, anxiety,seizures, irritability, anorexia, xerostomia, and photosensitivity.Seriou s reactions include: Rash, severe; Christina Cem syndrome; toxic epidermal necrosis;injury edema, hypersensitivity reactions. Including fatal, multiple organ failure to safe fatal, rash witheosinophilia systemic symptoms, DIC, neutropenia, leukopenia, thrombocytopenia, pancytopenia,aplastic anemia, hemolytic anemia, i pancreatitis, hepatic failure, rhabdomyolysis, worsening ofsuicidal ideation, worsening of depression, cleft lip/palate [first trimester use]DO not Change Cosmetic, perfumes or soap for next 4 weeks. The patient was advice to take lamotrigine as prescribed the patient was instructed not to deviatefrom the prescription dosages. Stop lamotrigine is the first sign of rash. Patient was insisted to informoffice if any of the serious side effect develops. 2. Generalized anxiety disorder - Effexor 75 mg in am Sertraline 150 mg in am for depression and anxiety Clonazepam 0.5 mg four times a day Medication Management and Follow-Up- Plan:- Schedule follow-up appointments every 2-3 months to monitor the patient's response to the medication regimen.- Reinforce the importance of avoiding recreational drug use due to potential neurotoxicity and interactions with prescribed medications 3. Primary insomnia -work on sleep schedule in therapy sleep hygiene educated Melatonin 10 mg otc nightly. Trazodone 100 at bedtime 4. Tardive dyskinesia - [employer] insurance denied and appeal does not want rx - monitor patient will see neurologist about movement 06/08 educated on medication AIMS= 11 12/26/21 AIMS= 2 08/18/24 missing teeth and reported shakes once in a while rt hand 5 dry mouth educated on dry mouth and use Biotine disucss medications and dry mouth . Long-term drug therapy 02/28/2024 Hypertension, unspecified type (ICD9-CM - 401.9) 1. Mild bipolar disorder -wants 30 days refills only r/t co-pays Vraylar 3 mg daily eat with rx for psychosis AIMS=11 12/26/21 AIMS= 02/05/23 lamotrigine 200 mg po bid obtain labs reviewed Endo/PCP continue therapy hx parathyroid abnormal see specialist - parathyroid and vit d educated on all medications, benefits, side effects and risk, and educated on depression, anxiety, and , mood d/o and educated on compliance of medications, appointment's, continue therapy discussion with patient about course of treatment and patient instructions. Lamotriginelamotrigine has a serious rashes requiring hospitalization and discontinue treatment including Magdy Cem syndrome rare case of toxic epidermal necrolysis and cache related deaths.Incidence with adjunct of epilepsy treatment 0.8% in 2 to 16 years old and 0.3% in adults, bipolarand other mood disorders incidence 0.8% this initial monotherapy and 0.13% as adjunctivetreatment.Oth er risk factor may include concomitant use of valproate acid derivative or exceeding initiallamotrigine does or does as clinician recommendation; most life-threatening rash of occurring first 2 to 8 week of treatment with isolated cases after prolonged treatment; though benign may occur,discontinue treatment at first sign of rash unless clearly not a drug related; TC treatment may notprevent trash from becoming life-threatening or permanently disabling or disfiguring. Comment reaction include, nausea/vomiting, dizziness/vertigo, visual disturbances, somnolence,ataxia, pruritus/rash, pharyngitis, headache, rhinitis, diarrhea, fever, asthenia, insomnia, tremor,abdominal pain, cough, accidental injury, constipation, dysmenorrhea, incoordination, anxiety,seizures, irritability, anorexia, xerostomia, and photosensitivity.Seriou s reactions include: Rash, severe; Christina Cem syndrome; toxic epidermal necrosis;injury edema, hypersensitivity reactions. Including fatal, multiple organ failure to safe fatal, rash witheosinophilia systemic symptoms, DIC, neutropenia, leukopenia, thrombocytopenia, pancytopenia,aplastic anemia, hemolytic anemia, i pancreatitis, hepatic failure, rhabdomyolysis, worsening ofsuicidal ideation, worsening of depression, cleft lip/palate [first trimester use]DO not Change Cosmetic, perfumes or soap for next 4 weeks. The patient was advice to take lamotrigine as prescribed the patient was instructed not to deviatefrom the prescription dosages. Stop lamotrigine is the first sign of rash. Patient was insisted to informoffice if any of the serious side effect develops. 2. Generalized anxiety disorder - Effexor 75 mg in am Sertraline 150 mg in am for depression and anxiety Clonazepam 0.5 mg four times a day Medication Management and Follow-Up- Plan:- Schedule follow-up appointments every 2-3 months to monitor the patient's response to the medication regimen.- Reinforce the importance of avoiding recreational drug use due to potential neurotoxicity and interactions with prescribed medications 3. Primary insomnia -work on sleep schedule in therapy sleep hygiene educated Melatonin 10 mg otc nightly. Trazodone 100 at bedtime 4. Tardive dyskinesia - [employer] insurance denied and appeal does not want rx - monitor patient will see neurologist about movement 06/08 educated on medication AIMS= 11 12/26/21 5 dry mouth educated on dry mouth and use Biotine disucss medications and dry mouth . Long-term drug therapy 11/12/2023 Other Cariprazine Oral Capsule (CARIPRAZINE - ORAL) material was published, Lamotrigine Oral Tablet (LAMOTRIGINE - ORAL) material was published, Sertraline Oral Tablet (SERTRALINE - ORAL) material was published, Venlafaxine Extended Release Oral Capsule (VENLAFAXINE SUSTAINED-RELE ASE - ORAL) material was published, Clonazepam Oral Tablet (CLONAZEPAM - ORAL) material was published, Trazodone Oral Tablet (TRAZODONE - ORAL) material was published 1. Mild bipolar disorder -wants 30 days refills only r/t co-pays Vraylar 3 mg daily eat with rx for psychosis AIMS=11 12/26/21 AIMS= 02/05/23 lamotrigine 200 mg po bid obtain labs reviewed Endo/PCP continue therapy hx parathyroid abnormal see specialist - parathyroid and vit d educated on all medications, benefits, side effects and risk, and educated on depression, anxiety, and , mood d/o and educated on compliance of medications, appointment's, continue therapy discussion with patient about course of treatment and patient instructions. Lamotriginelamotrigine has a serious rashes requiring hospitalization and discontinue treatment including Magdy Cem syndrome rare case of toxic epidermal necrolysis and cache related deaths.Incidence with adjunct of epilepsy treatment 0.8% in 2 to 16 years old and 0.3% in adults, bipolarand other mood disorders incidence 0.8% this initial monotherapy and 0.13% as adjunctivetreatment.Oth er risk factor may include concomitant use of valproate acid derivative or exceeding initiallamotrigine does or does as clinician recommendation; most life-threatening rash of occurring first 2 to 8 week of treatment with isolated cases after prolonged treatment; though benign may occur,discontinue treatment at first sign of rash unless clearly not a drug related; TC treatment may notprevent trash from becoming life-threatening or permanently disabling or disfiguring. Comment reaction include, nausea/vomiting, dizziness/vertigo, visual disturbances, somnolence,ataxia, pruritus/rash, pharyngitis, headache, rhinitis, diarrhea, fever, asthenia, insomnia, tremor,abdominal pain, cough, accidental injury, constipation, dysmenorrhea, incoordination, anxiety,seizures, irritability, anorexia, xerostomia, and photosensitivity.Seriou s reactions include: Rash, severe; Christina Cem syndrome; toxic epidermal necrosis;injury edema, hypersensitivity reactions. Including fatal, multiple organ failure to safe fatal, rash witheosinophilia systemic symptoms, DIC, neutropenia, leukopenia, thrombocytopenia, pancytopenia,aplastic anemia, hemolytic anemia, i pancreatitis, hepatic failure, rhabdomyolysis, worsening ofsuicidal ideation, worsening of depression, cleft lip/palate [first trimester use]DO not Change Cosmetic, perfumes or soap for next 4 weeks. The patient was advice to take lamotrigine as prescribed the patient was instructed not to deviatefrom the prescription dosages. Stop lamotrigine is the first sign of rash. Patient was insisted to informoffice if any of the serious side effect develops. 2. Generalized anxiety disorder - Effexor 75 mg in am Sertraline 150 mg in am for depression and anxiety Clonazepam 0.5 mg four times a day Medication Management and Follow-Up- Plan:- Schedule follow-up appointments every 2-3 months to monitor the patient's response to the medication regimen.- Reinforce the importance of avoiding recreational drug use due to potential neurotoxicity and interactions with prescribed medications 3. Primary insomnia -work on sleep schedule in therapy sleep hygiene Melatonin 10 mg otc nightly. Trazodone 100 at bedtime 4. Tardive dyskinesia - d/c [employer] insurance denied and appeal does not want rx - monitor patient will see neurologist about movement 06/08 educated on medication AIMS= 11 12/26/21 5. Long-term drug therapy Plan Of Treatment Next Appt Details Provider Name:Lis Rodríguez, 10/03/2024 01:00:00 PM, [address], [facility] [address], [place], [address], Provider Name:Lis Rodríguez, 10/07/2024 09:00:00 AM, [address], [facility] [address], [place], [address], Provider Name:Lis Rodríguez, 10/22/2024 09:00:00 AM, [address], [facility] [address], [place], [address], Provider Name:Candice Jeannette , 11/18/2024 11:45:00 AM, [address], [place] [address], [place], [address], Insurance Providers Payer Name Payer Address Payer Phone Subscriber Number Group Number Insured Name Patient Relationship to Insured Coverage Start Date Coverage End Date [facility] [address] [place] [address] [id number] FREDDY LIN Self - patient is the insured [place]-[employer] l [employer] [address] [address] [place] [address] [id number] FREDDY LIN Self - patient is the insured Medical (General) History Medical History History ICD Code Problems: Chronic post-traumatic stress disorder Cortical blindness Generalized anxiety disorder History of eating disorder Long-term drug therapy Mild bipolar disorder Movement disorder Overweight Primary insomnia Repetitive self-excoriation Severe depressed bipolar I disorder with psychotic features Suicidal thoughts Tardive dyskinesia ,
--- OUTSIDE RECORDS SUMMARY | 2024-09-17 08:16 | XMS_ITS | Clinical Summary ---
Author Organization [facility] Address [address], [address] [address] Phone Care Team Providers Care Mobile Product Manager Name Role Phone Mono Magaña DO Primary Care Provider Allergies Active Allergy Reactions Criticality Noted Date Comments Aspirin Unknown Azelastine Itching 04/22/2019 Sulfamethoxazole-Trimethoprim Vomiting 2020 Clonidine Hcl Unknown Meperidine Unknown Diclofenac Unknown 06/23/2015 Iodinated Contrast Media Unknown Nitrofurantoin Monohyd Macro Unknown Ceftriaxone Sodium In Dextrose Unknown Silicone Unknown 06/23/2015 Medications acyclovir (ZOVIRAX) 800 MG Tablet Active melatonin ([facility] MELATONIN) 3 MG Tablet Active Cholecalciferol ([facility] VITAMIN D3) 1000 UNIT Capsule Reported on 07/26/2016 Active lamoTRIgine (LAMICTAL) 200 MG Tablet Active albuterol (PROVENTIL HFA) 108 (90 BASE) MCG/ACT Aerosol Solution Active clonazePAM (KLONOPIN) 0.5 MG Tablet Reported on 07/26/2016 0 5 Active estradiol (VIVELLE) 0.1 MG/24HR PATCH BIWEEKLY 2 5 Active Rizatriptan Benzoate 10 MG Tablet Reported on 07/26/2016 2 5 Active traZODone (DESYREL) 100 MG Tablet 0 5 Active trimethoprim (TRIMPEX) 100 MG Tablet 4 5 Active venlafaxine (EFFEXOR) 37.5 MG Tablet Take 37.5 mg by mouth 3 times daily. Active rosuvastatin (CRESTOR) 40 MG Tablet Take 40 mg by mouth daily. Active ezetimibe (ZETIA) 10 MG Tablet Take 10 mg by mouth daily. Active polyethylene glycol (GLYCOLAX) Powder Take 17 g by mouth daily. 17 g = 1 scoop. Dissolve in 4 -8 oz of water or other liquid. 510 g 6 7 Active dicyclomine (BENTYL) 20 MG Tablet TK 1 T PO 3 TO 4 TIMES QD 3 8 Active tamsulosin (FLOMAX) 0.4 MG Capsule TK ONE C PO D 3 8 Active fludrocortisone (FLORINEF) 0.1 MG Tablet Take 0.1 mg by mouth daily. Active fluticasone (FLONASE) 50 MCG/ACT Suspension 1-2 Sprays by Nasal route daily. Use in each nostril as directed. Active nystatin-triamcin olone (MYCOLOG II) 559027-9.1 UNIT/GM-% Cream Apply 3 times daily. Affected areas Active Multiple Vitamins-Minerals (PRESERVISION AREDS 2) Capsule Take by mouth. Active Cetirizine HCl (ZYRTEC PO) Take by mouth. Act ken Docusate Sodium (COLACE PO) Take by mouth. Act ken Topiramate (TOPAMAX) 50 MG Tablet Take 50 mg by mouth 2 times daily. Active Lifitegrast (XIIDRA) 5 % Solution Place in affected eye(s). Active Cholecalciferol (VITAMIN D3 PO) Take 50,000 Units/L by mouth. Active Zinc 30 MG Tablet Take by mouth. Active Pancrelipase, Xor-Atkt-Ygxu, [address] units Capsule DR Particles Take 2 Caps by mouth 4 times daily (before meals and nightly). 240 Cap 6 0 Active linaclotide (Linzess) 290 MCG CapsuleIndication s:Irritable bowel syndrome with constipation Take 1 Capsule by mouth every morning (before breakfast). 30 Capsule 3 1 Active QUEtiapine Fumarate 300 MG Tablet Take 300 mg by mouth. 1 Active PreviDent 5000 Plus 1.1 % Cream USE TWICE DAILY DIRECTED 1 Active tolnaftate (TINACTIN) 1 % Powder ROZINA TOPICALLY AA BID 0 Active diclofenac (VOLTAREN) 0.1 % Solution 0 Active diphenhydrAMINE HCl 50 MG Tablet Take 1 pill of 50 mg 1 hour before the procedure 7 Active fluticasone-salme terol (Advair Diskus) 100-50 MCG/DOSE AEROSOL POWDER, BREATH ACTIVATED INHALE 1 PUFF BY MOUTH EVERY 12 HOURS. RINSE AND SPIT AFTER USE 1 Active Carboxymeth-Glyce rin-Polysorb (REFRESH OPTIVE YEVGENIY-3 OP) Place in affected eye(s). Active omeprazole (PriLOSEC) 40 MG CAPSULE DELAYED RELEASE Take 40 mg by mouth daily. ZEGRID Active Plecanatide (Trulance) 3 MG TabletIndications :Irritable bowel syndrome with constipation Take 3 mg by mouth daily. 90 Tablet 3 1 Active ondansetron (ZOFRAN-ODT) 8 MG TABLET DISPERSIBLE 1 Tablet by Buccal route every 12 hours as needed for Nausea - 1st line. 180 Tablet 3 1 Active promethazine (PHENERGAN) 12.5 MG TabletIndications :Idiopathic chronic pancreatitis (HCC),Gastropares is TAKE 1 TABLET BY MOUTH FOUR TIMES DAILY NEEDED FOR NAUSEA AND VOMITING 120 Tablet 1 1 Active metoclopramide (REGLAN) 10 MG/10ML SolutionIndicatio ns:Gastroparesis Take 20 mL by mouth 2 times daily. 1200 mL 5 1 Active dicyclomine (BENTYL) 20 MG Tablet Take 1 Tablet by mouth every 6 hours as needed (cramping). 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 Gastroparesis Abdominal discomfort Pneumobilia Overview (01/13/2015): On endoscopic ultrasound as well as on the MRCP with no previous interventions Immunizations Immunization Administration Dates Next Due Influenza Vaccine, Quadrivalent, PF 05/08/2014 Influenza Vaccine,unspecified Formulation 2011 Influenza, Seasonal, Injectable, Undefined 12/17 TD VACCINE 03/19/2001 TDAP Vaccine 03/19/2008 Family History * Patient is adopted Medical History Relation Name Comments Heart Disease Father Liver Cancer Father Heart Disease Mother Relation Name Status Comments Father Mother Social History Tobacco Use Types Packs/Day Years Used Date Smoking Tobacco: Former Cigarettes 1 4 0 06/22/1990 - 06/22/1994 Smokeless Tobacco: Never Tobacco Cessation:Counseling Given: No Alcohol Use Standard Drinks/Week Comments No 0 (1 standard drink = 0.6 oz pur e alcohol) Sexually Active Control Partners Comments Not Currently Comments No Sex and Gender Information Value Date Recorded Sex Assigned at Not on file Legal Sex Female 8:58 PM CDT Gender Identity Not on file Sexual Orientation Not on file Occupation Industry Job Start Date Job End Date disabled Not on file Not on file Not on file Last Filed Vital Signs Vital Sign Reading Time Taken Comments Blood Pressure 90/72 05/31/2020 12:50 PM CDT Pulse 75 05/31/2020 12:50 PM CDT Temperature 36.2 C (97.2 F) 05/31/2020 12:50 PM CDT Respiratory Rate 18 05/31/2020 12:5 0 PM CDT Oxygen Saturation 96% 05/31/2020 12: 50 PM CDT Inhaled Oxygen Concentration - - Weight 84.8 kg (187 lb) 05/31/2020 12:5 0 PM CDT Pt gave verbal Height 160 cm (5' 3) 05/31/2020 12:50 PM CDT Body Mass Index 33.13 05/31/2020 12:50 PM CDT Plan of Treatment Health Maintenance Due Date Last Done Comments Hepatitis C Virus (HCV) Screening 1970 Hepatitis B Immunization (1 of 3 - 19+ 3-dose series) 1989 Cologuard 07/22/2015 Immunochemical Fecal Occult Blood 07/22/2015 Pneumococcal Immunization (5 0+ years) (1 of 1 - PCV) 2020 Zoster Immunization (1 of 2) 2020 SARS-COV-2 Immunization (4 - season) 2023 02/27/2021, 06/22/2020, 06/01/2020 Colonoscopy 08/04/2024 08/04/2014 Colorectal Cancer Screening 08/04/2024 Influenza Immunization (Seas on Ended) 2024 05/08/2014, 08/16/2011, 12/17/2001 Respiratory Syncytial Virus (RSV) Immunization (Adult) (1 - 1-dose 75+ series) 2045 DTaP/Tdap/Td Immunization Discontinued 2008, 03/19/2001 Human Papillomavirus (HPV) Immunization Aged Out No longer eligible based on patient's age to complete this topic Meningococcal Immunization (ACWY) Aged Out No longer eligible based on patient's age to complete this topic Rotavirus Immunization Aged Out No lo nger eligible based on patient's age to complete this topic Procedures Procedure Name Priority Date/Time Associated Diagnosis Comments COLONOSCOPY Routine 08/04/2014 from Last 3 Months or Most Recently Relevant to Health Maintenance Results * COLONOSCOPY (08/04/2014) Lucio Nicole MD PROCEDURE/MINOR SURGICAL ORDER CONOR Final Result from Last 3 Months or Most Recently Relevant to Health Maintenance Insurance [place]ICAID [place] Member Subscriber Plan / Payer (Ef fective 2016-Present) Name:Joy Oliveira Relation to Subscriber:Self Name:Joy Oliveira Payer ID:[id number] Group ID:Not on file Type:Not on file Address: [address] Care Teams Mobile Product Manager Relationship Specialty Start Date End Date Mono Magaña DO [address] [place] [address] PCP - General Internal Medicine 10/24/18
--- OUTSIDE RECORDS SUMMARY | 2024-09-17 08:16 | XMS_ITS | Referral Summary ---
Author Organization [facility] [place] [address] Address [address] [place] [address] Care Team Providers Care Oil Deliverer Name Role Phone Luc Munoz Primary Care Provider [phone] Encounters Date Type Department Care Team Description 09/03/2024 Telephone [facility] Medical [facility] Neurology [address] [place] [address] [place] [phone] Lynn Balderrama NP 08/25/2024 11:00 AM CDT Office Visit [facility] [address] [place] [address] [place] [phone] Lynn Balderrama, PARK SUPERINTENDENT Migraine without aura, not intractable, without status migrainosus; Dizziness and giddiness from Last 3 Months Allergies Active Allergy Reactions Criticality Noted Date Comments Aspirin Unknown Azelastine Itching Low 04/22/2019 Sulfamethoxazole-Trimetho prim Vomiting Low 05/17/2020 Ceftriaxone Rash,Swelling High 04/21/2011 Clonidine Hcl Other (See comments),Unknown Low 01/25/2016 Diclofenac Potassium Swelling High 04/21/2011 Tongue swelling. Nitrofurantoin Monohyd/M-Cryst Rash Medium 04/13/2014 Meperidine Hives,Other (See comments) High 04/21/2011 Reaction: Metrizamide Other (See comments),Unknown Low 01/25/2016 Nitrofurantoin Rash Medium 07/17/2014 Other Hives,Other (See comments) High 04/21/2011 IVP contrast dye. --hives Aspirin--hives and hearing loss Reaction: Silicone Swelling Medium 04/13/2014 Medications acyclovir (ZOVIRAX) 800 mg tablet Take 1 tablet (800 mg total) by mouth 2 (two) times a day 2 08/27/19 17 Active albuterol HFA (PROVENTIL HFA,VENTOLIN HFA) 90 mcg/actuation inhaler as needed Active clonazePAM (KlonoPIN) 0.5 mg tablet TK 1 T PO QID 2 10/01/19 17 Active cholecalciferol (VITAMIN D-3) 1,000 unit Reported on 07/26/2016 Active estradiol (VIVELLE-DOT) 0.1 mg/24 hr APPLY TWICE PER WEEK 3 08/11/19 17 Active fludrocortisone 0.1 mg tablet TK 1 T PO BID 12/25/19 16 Active lamoTRIgine (LaMICtal) 200 mg tablet TK 1 T PO BID 2 10/08/19 17 Active metoclopramide (REGLAN) 1 mg/mL solution Take 20 mL (20 mg total) by mouth 2 (two) times a day 2 08/06/19 17 Active melatonin tablet Act ken polyethylene glycol (MIRALAX) 17 gram/dose powder Take 17 g by mouth 07/27/19 17 Active trimethoprim (TRIMPEX) 100 mg tablet 9 09/17/19 17 Active docusate sodium (COLACE) 50 mg capsuleIndications :constipation Take by mouth nightly. Active lansoprazole (PREVACID) 30 mg capsule Take 1 capsule (30 mg total) by mouth 2 (two) times a day Active vit C,K-Oa-clntr-lutei n-zeaxan [id number] er-porl-ys-mg capsule Take by mouth 2 (two) times a day. Active cetirizine (ZyrTEC) 10 mg tablet Take by mouth Active dicyclomine (BENTYL) 20 mg tablet TK 1 T PO QID PRF CRAMPING 08/18/19 20 Active ergocalciferol (VITAMIN D) 50,000 unit capsule TK 1 C PO Q WEEK ON Sunday10/06/19 20 Active ezetimibe (ZETIA) 10 mg tablet TK 1 T PO D 11/16/19 20 Active PreviDent 5000 Plus 1.1 % cream U BID UTD 10/19/19 20 Active fluticasone propionate (FLONASE) 50 mcg/actuation nasal spray Administer 1-2 sprays into affected nostril(s) daily Active Xiidra 5 % dropperette INT 1 GTT IN OU BID 11/06/19 20 Active nystatin-triamcino lone cream APPLY TOPICALLY PRN 08/25/19 20 Active promethazine (PHENERGAN) 12.5 mg tablet TK 1 T PO QID PRN FOR NAUSEA 11/05/19 20 Active sucralfate (CARAFATE) 1 gram tablet TK 1 T PO QID 11/07/19 20 Active tamsulosin (FLOMAX) 0.4 mg extended release capsule TK 1 C PO D 11/02/19 20 Active AntifungaL, tolnaftate, 1 % powder ROZINA TOPICALLY AA BID 11/02/19 20 Active rosuvastatin (CRESTOR) 40 mg tablet TK 1 T PO D 11/16/19 20 Active diclofenac 0.1 % ophthalmic solution 03/18/20 20 Active prednisoLONE acetate (PRED FORTE) 1 % ophthalmic suspension INSTILL 1 DROP IN LEFT EYE THREE TIMES DAILY FOR 1 WEEK THEN TWICE DAILY FOR 1 WEEK THEN EVERY DAY FOR 1 WEEK 03/18/20 20 Active traZODone (DESYREL) 100 mg tablet Take 1 tablet (100 mg total) by mouth nightly at bedtime 05/02/19 21 Active Zenpep 10,000-32,000 -42,000 unit per capsule TAKE 2 CAPSULES BY MOUTH FOUR TIMES DAILY BEFORE MEALS AND AT NIGHT 03/10/20 20 Active venlafaxine XR (EFFEXOR-XR) 75 mg 24 hr capsule Take 1 capsule (75 mg total) by mouth every morning 05/02/19 21 Active ondansetron ODT (ZOFRAN-ODT) 8 mg disintegrating tablet DISSOLVE 1 TABLET ON THE TONGUE EVERY 8 HOURS NEEDED FOR NAUSEA 03/01/20 20 Active fluticasone propion-salmeteroL (ADVAIR DISKUS) 500-50 mcg/dose diskus inhaler Inhale 1 puff 2 (two) times a day Rinse mouth with water after use. Do not swallow. Active topiramate (TOPAMAX) 200 mg tabletIndications: Migraine without aura, not intractable, without status migrainosus Take 1 tablet (200 mg total) by mouth 2 (two) times a day 60 tablet 11 11/09/19 21 Active carboxymethyl-gly- yemb26-WX 0.5-1-0.5 % dropperette Administer into affected eye(s) Active Trulance 3 mg tablet Take 1 tablet (3 mg total) by mouth daily 09/13/19 22 Active ipratropium (ATROVENT) 42 mcg (0.06 %) nasal spray Administer into each nostril 3 (three) times a day 10/09/19 22 Active Vraylar 1.5 mg capsule 10/31/19 22 Active meclizine (ANTIVERT) 12.5 mg tabletIndications: Dizziness and giddiness Take 1 tablet (12.5 mg total) by mouth 3 (three) times a day as needed for dizziness 30 tablet 5 11/01/19 22 Active calcitRIOL (ROCALTROL) 0.25 mcg capsule Take 1 capsule (0.25 mcg total) by mouth 2 (two) times a week 08/02/19 24 Active Airsupra 90-80 mcg/actuation HFA aerosol inhaler INAHLE 2 PUFFS 6 TIMES PER DAY NEEDED FOR SHORTNESS OF BREATH 08/20/19 24 Active clotrimazole-betam ethasone (LOTRISONE) cream APPLY TOPICALLY TO THE AFFECTED AREA TWICE DAILY 08/05/19 24 Active montelukast (SINGULAIR) 10 mg tablet Take 1 tablet (10 mg total) by mouth nightly at bedtime 08/14/19 24 Active Premarin 1.25 mg tablet Take 1 tablet (1.25 mg total) by mouth daily 07/29/19 24 Active galcanezumab-gnlm (Emgality Pen) 120 mg/mL pen injectorIndication s:Migraine Prevention Inject 120 mg under the skin every 30 (thirty) days 1 mL 11 08/26/19 25 Active rimegepant (Nurtec ODT) tablet,disintegrat ingIndications:Severino drummond without aura, not intractable, without status migrainosus Place 1 tablet (75 mg total) under the tongue daily as needed (migraine) 8 tablet 11 08/26/19 25 025 Active Nurtec ODT tablet,disintegrat ingIndications:Severino drummond without aura, not intractable, without status migrainosus DISSOLVE 1 TABLET(75 MG) ON THE TONGUE DAILY NEEDED FOR MIGRAINE. NO MORE THAN 8 TABLETS IN 30 DAYS 8 tablet 11 10/30/19 24 025 Discontin ued(Reord er) galcanezumab-gnlm (Emgality Pen) 120 mg/mL pen injectorIndication s:Migraine Prevention Inject 120 mg under the skin every 30 (thirty) days 1 mL 11/21/19 24 025 Discontin ued(Reord er) Active Problems Problem Noted Date Diagnosed Date Dizziness and giddiness 05/17/2020 Assessment & Plan (05/17/2020 2:06 PM CRIME SCENE SPECIALIST): Patient has a history of episodic dizziness best characterized as a sensation of movement. She uses meclizine on a p.r.n. basis with success. She is in need of renewal at this time and is been per represcribed as previously provided. Migraine without aura, not i ntractable, without status migrainosus 11/17/2019 Assessment & Plan (11/08/2020 2:02 PM CDT): Patient continues on topiramate 200 mg b.i.d. for migraine prophylaxis as well as rizatriptan 10 mg b.i.d. p.r.n. for abortive breakthrough with good tolerability and success. I have renewed both medications as currently prescribed. She will follow-up in neurology clinic in a year. Assessment & Plan (05/17/2020 2:05 PM CRIME SCENE SPECIALIST): Patient had adverse effects with propranolol prescribed for migraine prophylaxis and is requesting a return challenge with topiramate 200 mg b.i.d.. She says she prefers the benefits and is not interested at this time in consideration of botulinum toxin as an alternative prophylaxis. I did confirm again that her prior kidney stones were not fuss for late stones which she is definite that they are not. I will resume her topiramate 200 mg b.i.d. for migraine prophylaxis, prescribed and extension of rizatriptan 10 mg b.i.d. p.r.n. for abortive breakthrough. I will see her back in 6 months time for reassessment. Assessment & Plan (11/17/2019 1:56 PM CDT): Despite further increase in the topiramate 200 mg b.i.d., she is not realized any reduction in headache frequency. The characterization of the headache is similar to what she has had in [facility] but she still having them the majority of the time. I do not believe she would benefit from a further increase in topiramate at this point. I did review with her alternate headache prophylactic treatment options. Given her existing medications, I do not think she would be a good candidate for either valproic acid or amitriptyline. She does have a history of asthma but it is typically well controlled and generally seasonal. Have suggested that she try low-dose propranolol to see what impact that may have on her headache, but I did child care counselor her that potentially it could exacerbate her asthma and if so I would have to discontinue it. I will start her on propranolol 20 mg b.i.d. for migraine prophylaxis, and I will substitute for the rizatriptan a trial of sumatriptan 100 mg b.i.d. p.r.n. for abortive breakthrough. I will plan on seeing her back in 6 months for reassessment on the changed therapy. Generalized anxiety disorder 11/17/2019 Psychosis 11/17/2019 Overview (11/17/2019): Overview: Idiopathic chronic pancreatitis 11/04/2019 Chest pain, unspecified 10/09/2016 Assessment & Plan (11/06/2016 9:02 AM CDT): No coronary artery disease on cardiac catheterization. Could be caused by gastroparesis, chronic pancreatitis or GERD. She will see her clinical exercise physiologist in January. Assessment & Plan (10/09/2016 1:03 PM CDT): Patient continues to have chest pain despite negative stress test. I will advise patient to undergo cardiac catheterization to rule out significant coronary artery disease. She is allergic to IV dye and therefore will have to prescribed prednisone 50 mg to be taken 13 hours, 7 hours, 1 hour before the procedure and Benadryl 50 mg 1 hour before the procedure. Mixed hyperlipidemia 10/09/2016 Assessment & Plan (11/06/2016 9:07 AM CDT): Her lipid panel today shows LDL 183, triglycerides 190, HDL 38. She is on 80 mg of Lipitor. I will have to check if she could be a candidate for Repatha treatment. Assessment & Plan (10/09/2016 12:53 PM CDT): Next visit will obtain lipid panel. Family history of premature coronary artery dise ase 10/09/2016 Functional visual loss 01/25/2016 Visual disturbance 01/25/2016 Encounter for feeding tube placement 04/24/2011 Endometriosis 04/24/2011 Borderline personality disorder 08/06/2010 Depressive disorder, not elsewhere classified Dissociative identity disorder 08/06/2010 Bulimia nervosa 08/06/2010 Eating disorder 08/06/2010 Type II or unspecified type diabetes mellitus without mention of complication, not stated as uncontrolled 08/06/2010 Hyperlipidemia 08/06/2010 Social History Tobacco Use Types Packs/Day Years Used Date Smoking Tobacco: Never Smokeless Tobacco: Never Tobacco Cessation:Counseling Given: Not Answered Alcohol Use Standard Drinks/Week Comments No 0 (1 standard drink = 0.6 oz pur e alcohol) Comments Unknown Sex and Gender Information Value Date Recorded Sex Assigned at Not on file Legal Sex Female 7:41 PM CRIME SCENE SPECIALIST Gender Identity Not on file Sexual Orientation Not on file Last Filed Vital Signs Vital Sign Reading Time Taken Comments Blood Pressure 119/70 08/25/2024 10:39 AM CDT Pulse 81 08/25/2024 10:39 AM CDT Temperature 36.2 C (97.1 F) 07/04/2022 10:37 AM CDT Respiratory Rate 20 08/25/2024 10:39 AM CDT Oxygen Saturation 91% 08/25/2024 10:39 AM CDT Inhaled Oxygen Concentration - - Weight 108.9 kg (240 lb) 08/25/2024 10:39 AM CDT Height 160 cm (5' 3) 08/25/2024 10:39 AM CDT Body Mass Index 42.51 08/25/2024 10:39 AM CDT Plan of Treatment Not on file Procedures Procedure Name Priority Date/Time Associated Diagnosis Comments POCT LIPID PANEL Routine 11/06/2016 9:10 AM CDT Mixed hyperlipidemia from Last 3 Months or Most Recently Relevant to Health Maintenance Results * Lipid panel POC (performed in office) (11/06/2016 9:10 AM CDT) Cholesterol, POC 259 mg/dL HDL, POC 38 mg/dL Triglycerides, POC 190 mg/dL LDL Cholesterol POC 183 mg/dL Chol/HDL Ratio, POC 6.8 Non-HDL Cholesterol, POC 221 mg/dL Cholesterol Total, POC 259 mg/dL Blood specimen (specimen) 11/06/2016 9:10 AM CDT Charleen Rebolledo MD POINT OF CARE TEST O RDERABLES Final Result from Last 3 Months or Most Recently Relevant to Health Maintenance [place] Care Teams Oil Deliverer Relationship Specialty Start Date End Date Luc Munoz DO [address] [facility] [address] [place] [address] PCP - General Internal Medicine 08/25/24
--- OUTSIDE RECORDS SUMMARY | 2024-09-17 08:16 | XMS_ITS | Clinical Summary ---
Author Organization [facility] Address [address] [place] [address] Care Team Providers Care Play Back Operator Name Role Phone Lucio Nicole MD Primary Care Provider [phone] Cyrus Bailey MD Unavailable [phone] Source Comments [facility],non-owned Affiliates and Associated Physician Practices is amultiple site organization consisting of ambulatory clinics and hospital sitesin [place], [place], [place] and [place]. This disclosure is being madepursuant to the Care Everywhere program and may not contain all information available regarding this patient. Last updated 17.[facility] Allergies Active Allergy Reactions Criticality Noted Date Comments Aspirin 08/05/2010 Diclofenac Potassium 08/05/2010 Meperidine 08/05/2010 Tamsulosin Hcl 08/05/2010 Nitrofurantoin Rash Low 07/17/2014 Other-See Past Updates Rash,Itching Low 08/06/2010 Ceftriaxone 08/05/2010 Silicone Swelling Medium 06/15/2014 Topiramate Other High 06/15/2014 Medications * This document contains information received from the source organization and may not represent a complete record from that organization. * Be aware that medications may not be up to date on this document. Alwaysverify current medications with the patient. ondansetron, disintegrating, (ZOFRAN ODT) 8 MG tablet Take 8 mg by mouth every 8 hours as needed. Allow tablet to dissolve on the tongue Active clonazePAM (KLONOPIN) 1 MG tablet Take 1 mg by mouth 4 times daily. Active potassium phosphate monobasic (K-PHOS ORIGINAL) 500 MG tablet Take 500 mg by mouth 2 times daily. Active lamoTRIgine (LAMICTAL) 100 MG tablet Take 300 mg by mouth daily. Active loratadine (CLARITIN) 10 MG tablet Take 10 mg by mouth daily. Active docusate sodium (COLACE) 100 MG capsule Take 100 mg by mouth daily. Active metoclopramide (REGLAN) 10 MG/10ML solution Take 5 mg by mouth 4 times daily - before meals & nightly. Active DULoxetine (CYMBALTA) 30 MG capsuleIndicati ons:Fibromyalgi a Syndrome,Major Depressive Disorder Take 3 Caps by mouth daily. Indications: Fibromyalgia Syndrome, Major Depressive Disorder 90 Cap 1 1 Active sertraline (ZOLOFT) 100 MG tabletIndicatio ns:Depression Take 2 Tabs by mouth at bedtime. Indications: Depression 60 1 1 Active traZODone (DESYREL) 100 MG tablet Take 100 mg by mouth at bedtime. Active sucralfate (CARAFATE) 1 GM/10ML suspension Take 1 g by mouth 4 times daily. Active Cholecalciferol (VITAMIN D3) 31235 UNITS CAPS Take 10,000 Units by mouth once daily. Active linaclotide (LINZESS) 290 MCG capsule Take 290 mcg by mouth daily before breakfast. Take on an empty stomach at least 30 minutes prior to first meal of the day. Active Melatonin 3 MG CAPS Take by mouth. Activ e lansoprazole, disintegrating, (PREVACID SOLUTAB) 30 MG tablet Take 30 mg by mouth daily before breakfast. Active polyethylene glycol 3350 (MIRALAX) powder Take 17 g by mouth once daily. Active estradiol (CLIMARA) 0.1 MG/24HR patch Apply 1 Patch to skin every 7 days. Active Lactase (LACTAID PO) Take by mouth. Ac tive oxybutynin (DITROPAN) 5 MG tablet Take 5 mg by mouth 3 times daily. Active benzonatate (TESSALON PERLES) 100 MG capsule Take 100 mg by mouth 3 times daily as needed for Cough. Active rizatriptan (MAXALT) 10 MG tablet Take 10 mg by mouth once as needed for Migraine. Active diazepam (VALIUM) 5 MG tablet Take 1 Tab by mouth 3 times daily as needed for Anxiety. 90 Tab 0 5 Active piroxicam (FELDENE) 20 MG capsule Take 1 Cap by mouth once daily. 30 Cap 5 5 Active Active Problems Problem Noted Date Diagnosed Date Depressive disorder, not elsewhere classified Eating disorder 08/06/2010 Type II or unspecified type diabetes mellitus without mention of complication, not stated as uncontrolled 08/06/2010 GERD (gastroesophageal reflux disease) 1 Other and unspecified hyperlipidemia 08/06/2010 Dissociative identity disorder 08/06/2010 Borderline personality disorder 08/06/2010 Bulimia nervosa 08/06/2010 Psychosis Overview (12/17/2014): Hyperlipidemia Generalized anxiety disorder Family History Medical History Relation Name Comments Negative Family History Other 2 Adop kar Relation Name Status Comments Other 1 Adopted Other 2 Social History Tobacco Use Types Packs/Day Years Used Date Smoking Tobacco: Former Alcohol Use Standard Drinks/Week Comments No 0 (1 standard drink = 0.6 oz pur e alcohol) Comments Unknown Sex and Gender Information Value Date Recorded Sex Assigned at Not on file Legal Sex Female 11:47 AM PLUMBER Gender Identity Not on file Sexual Orientation Not on file 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 Not on file Not on file Last Filed Vital Signs Vital Sign Reading Time Taken Comments Blood Pressure 103/66 06/24/2014 12:04 PM CDT Pulse 66 06/24/2014 12:04 PM CDT Temperature 36.8 C (98.3 F) 08/12/2010 2:00 PM CDT Respiratory Rate 20 06/24/2014 12:04 PM CDT Oxygen Saturation 99% 08/12/2010 2:00 PM CDT Inhaled Oxygen Concentration - - Weight 64.9 kg (143 lb) 06/24/2014 12:04 PM CDT Height 160 cm (5' 3) 06/24/2014 12:04 PM CDT Body Mass Index 25.33 06/24/2014 12:04 PM CDT Plan of Treatment Health Maintenance Due Date Last Done Comments COLOGUARD (AGES 45-75) - COL ON CA SCREENING 1970 COLON MONITORING 1970 COLONOSCOPY - COLON CA SCREENING 1970 CT COLONOGRAPHY - COLON CA SCREENING 1970 Colorectal Cancer Screening 1970 FIT - COLON CA SCREENING 1970 FLEX SIG - COLON CA SCREENING 1970 MAMMOGRAM 1970 HIV SCREENING 1985 HEPATITIS C SCREENING 07/16/1988 DTAP/TDAP/TD VACCINES (1 - Tdap) 1989 HEPATITIS B VACCINE (1 of 3 - 19+ 3-dose series) 1989 PNEUMOCOCCAL VACCINE 50+ (1 of 2 - PCV) 1989 PAP SMEAR 07/22/1991 DIABETES-STATIN 2010 DIABETES-SERUM CREATININE 08/06/2011 08/05/2010 ZOSTER VACCINE (1 of 2) 2020 DIABETES RETINOPATHY SCREENING 05/02/2021 01/25/2016 DIABETES-FOOT EXAM WITH MONOFILAMENT 05/02/2021 DIABETES-HGB A1C 05/02/2021 COVID-19 VACCINE (1 - 2023-2 5 season) 2023 DEPRESSION SCREENING 03/19/2024 DIABETES - URINE PROTEIN SCREENING 03/19/2024 INFLUENZA VACCINE (Season Ended) 2024 12/18/19 02 HIB VACCINE Aged Out No longer eligi ble based on patient's age to complete this topic HPV VACCINE Aged Out No longer eligi ble based on patient's age to complete this topic MENINGOCOCCAL (Group B) VACC INE SHARED DECISION-MAKING Aged Out No longer eligibl e based on patient's age to complete this topic MENINGOCOCCAL GROUPS A/C/Y/W VACCINE Aged Out No longer eligible b ased on patient's age to complete this topic Procedures Procedure Name Priority Date/Time Associated Diagnosis Comments COMPREHENSIVE METABOLIC PANEL STAT 08/05/2010 9:28 PM CDT from Last 3 Months or Most Recently Relevant to Health Maintenance Results * (ABNORMAL) COMPREHENSIVE METABOLIC PANEL (08/05/2010 9:28 PM CDT) Sodium 142 137 - 145 mmol/L [facility] Potassium 4.2 3.6 - 5.0 mmol/L [facility] Chloride 107 98 - 107 mmol/L [facility] BUN 11 7 - 17 mg/dl [facility] Creatinine 0.49(L) 0.52 - 1.04 mg/dl [facility] Glucose 95 65 - 105 mg/dl [facility] Calcium 9.6 8.4 - 10.2 mg/dl [facility] Alkaline Phosphatase 104 38 - 126 U/L [facility] AST 39 8 - 39 U/L [facility] Bilirubin Total 0.4 0.2 - 1.3 mg/dl [facility] Protein Total 6.9 6.3 - 8.2 gm/dl [facility] Albumin 4.1 3.9 - 5.0 gm/dl [facility] CO2 25 22 - 30 mmol/L [facility] ALT 17 9 - 52 U/L [facility] eGFR by MDRD 140 >60 mL/min/1.7 3m2 [facility] Comment eGFR [facility] Comment: The eGFR does not apply to patients who are younger than 18 or older than 70. BLOOD SPECIMEN / Unknown 08/05/2010 9:28 PM CDT 08/05/2010 9:39 PM CDT Sean Bolton DO LAB - CHEMISTRY ORDERABLES Fin al Result Performing Organization Address City/State/[facility] Co de Phone Number [facility] [address] [place] [address] from Last 3 Months or Most Recently Relevant to Health Maintenance Insurance [facility] MEDICAID - OUT OF STATE [facility] [place]ICAID - [place] [facility] MEDICAID - [place] Advance Directives * Full Code (Latest Code Status on File) Date Activated Date Inactivated Comments 08/06/2010 2:02 AM 08/13/2010 4:27 AM Care Teams Play Back Operator Relationship Specialty Start Date End Date Lucio Nicole MD [address] [place] [phone] PCP - General 08/05/10 Cyrus Bailey MD [address] [place] [id number] Referring Physician Orthopedic Surgery 06/09/14
--- OUTSIDE RECORDS SUMMARY | 2024-09-17 08:16 | XMS_ITS | Clinical Summary ---
Author Organization [facility] [address] Address [address] [place] [address] Care Team Providers Care Armor Reconnaissance Specialist Name Role Phone Luc Munoz Primary Care Provider Allergies Active Allergy Reactions [...] 2 (two) times a day Active vit C,T-Me-sojzi-lutei n-zeaxan [id number] kz-xlsz-mn-mg capsule Take by mouth 2 (two) times [...] 60 tablet 11 11/09/19 21 Active carboxymethyl-gly- dgco16-NE 0.5-1-0.5 % dropperette Administer into affected eye(s) [...] skin every 30 (thirty) days 1 mL 08/26/19 25 Active rimegepant (Nurtec ODT) tablet,disintegrat ingIndications:Severino bhanu without aura, not intractable, without status migrainosus Place 1 tablet (75 mg total) under the tongue daily as needed (migraine) 8 tablet 08/26/19 25 025 Active Nurtec ODT tablet,disintegrat ingIndications:Severino bhanu without aura, not intractable, without status migrainosus DISSOLVE 1 TABLET(75 MG) ON THE TONGUE DAILY NEEDED FOR MIGRAINE. NO MORE THAN 8 TABLETS IN 30 DAYS 8 tablet 10/30/19 24 025 Discontin ued(Reord er) galcanezumab-gnlm (Emgality Pen) 120 mg/mL pen injectorIndication s:Migraine Prevention Inject 120 mg under the skin every 30 (thirty) days 1 mL 11/21/19 24 025 Discontin ued(Reord er) Active Problems Problem Noted Date Diagnosed Date Dizziness and giddiness 05/17/2020 Assessment & Plan (05/17/2020 2:06 PM ORANGE PICKER): Patient has a history of episodic dizziness [...] year. Assessment & Plan (05/17/2020 2:05 PM ORANGE PICKER): Patient had adverse effects with propranolol prescribed [...] similar to what she has had in pas,t but she still having them the majority [...] have on her headache, but I did student counsellor her that potentially it could exacerbate her [...] pancreatitis or GERD. She will see her carbonizer in January. Assessment & Plan (10/09/2016 1:03 [...] not stated as uncontrolled 08/06/2010 Hyperlipidemia 08/06/2010 Encounters Date Type Department Care Team Description 09/03/2024 Telephone [facility] [address] [place] [address] [place] [phone] Lynn Balderrama NP 08/25/2024 11:00 AM CDT Office Visit [facility] [address] [place] [address] [place] [phone] Lynn Balderrama NP Migraine without aura, not intractable, without status migrainosus; Dizziness and giddiness from Last 3 Months Surgical History Surgery Date Site/Laterality Comments PEG TUBE PLACEMENT CORONARY ANGIOPLASTY Medical History Medical History Date Comments Thyroid disease Hyperlipidemia Diabetes mellitus (HCC) Obesity Sinus disorder Acid indigestion Stroke (HCC) Blind COPD (chronic obstructive pulmonary disease) (HC C) Anxiety Bladder infection Pulmonary embolus (HCC) Asthma Bipolar disorder (HCC) Eating disorder Family History * Patient is adopted Medical History Relation Name Comments Cancer Father Heart attack Father Cancer Mother Relation Name Status Comments Father Mother Social History Tobacco Use Types Packs/Day Years Used Date Smoking Tobacco: Never Smokeless Tobacco: Never Tobacco Cessation:Counseling Given: Not Answered Alcohol Use Standard Drinks/Week Comments No 0 (1 standard drink = 0.6 oz pur e alcohol) Comments Unknown Sex and Gender Information Value Date Recorded Sex Assigned at Not on file Legal Sex Female 7:41 PM ORANGE PICKER Gender Identity Not on file Sexual Orientation Not on file Obstetrics History Last Filed Vital Signs Vital Sign Reading [...] 08/25/2024 10:39 AM CDT Plan of Treatment Health Maintenance Due Date Last Done Comments Albumin Creatinine Ratio, Urine 1970 Breast Cancer Screening-Mammogram 1970 Cervical Cancer Screening 1970 Colon Cancer Screening-Colonoscopy 1970 Depression Screening 1970 Hemoglobin A1C 1970 Hepatitis C Screening 1970 eGFR 1970 Dilated Eye Exam 1970 Foot Exam 1970 Hepatitis B Screening 1988 Regular Well Visit/Exam 18-64 1988 Pneumococcal vaccine <65 (1 of 2 - PCV) 1989 Lipid Panel 11/06/2017 11/06/2016 DTaP/Tdap/Td Vaccine (2 - Td or Tdap) 03/19/201803/2008, 03/19/2001 Zoster Vaccine (1 of 2) 2020 Influenza Vaccine (#1) 2024 5, 08/16/2011, 12/17/2001 Procedures Procedure Name Priority Date/Time Associated Diagnosis [...] Blood specimen (specimen) 11/06/2016 9:10 AM CDT us Charleen Rebolledo MD POINT OF CARE TEST O RDERABLES Final Result from Last 3 Months or Most Recently Relevant to Health Maintenance [place] [employer] Care Teams Armor Reconnaissance Specialist Relationship Specialty Start Date End Date Luc Munoz DO [address] [address] PCP - General Internal Medicine 08/25/24
--- OUTSIDE RECORDS SUMMARY | 2024-09-17 08:16 | XMS_ITS | Clinical Summary ---
Author Organization [facility] Address [address] [place] [address] Care Team Providers Care Director Acute Name Role Phone Unavailable Primary Care Provider Unavailabl e Social History Tobacco Use Types Packs/Day Years Used Date Smoking Tobacco: Never Assessed Comments Unknown Sex and Gender Information Value Date Recorded Sex Assigned at Not on file Legal Sex Female 5:45 PM CDT Gender Identity Not on file Sexual Orientation Not on file Plan of Treatment Health Maintenance Due Date Last Done Comments Cervical Cancer Screening Pa p Smear (Age 30 to 64) Every 3 Years 1970 Colorectal Cancer Screening Colonoscopy (10 Years) 1970 Annual Physical 1973 Hepatitis C 1988 DTaP, Tdap and Td Vaccines ( 1 - Tdap) 1989 Hepatitis B Vaccines (1 of 3 - 19+ 3-dose series) 1989 Cervical Cancer Screening Pa p with HPV Testing (Age 30 to 64) Every 5 Years 2000 Cervical Cancer Screening with HPV 2000 Mammogram Screening 2010 Pneumococcal Vaccine: 50+ Ye ars (1 of 1 - PCV) 2020 Zoster Vaccines (1 of 2) 2020 COVID-19 Vaccine ( - 2023-2 5 season) 2023 Meningococcal B Vaccine Aged Out No l onger eligible based on patient's age to complete this topic Meningococcal Vaccine Aged Out No elkin angy eligible based on patient's age to complete this topic RSV Immunizations Under 20 Months Aged Out No longer eligible based on patient's age to complete this topic Additional Health Concerns Infection Onset Date Last Indicated MRSA 10/25/2016 10/25/2016
[2024-09-17 08:56] LABS: Hematocrit 42.7 % (37.0-47.0); Hemoglobin 13.6 g/dL (12.0-15.0); Immature Granulocyte Percent A 0.8 % (0-0.5); Lymphocytes Absolute Auto 1.63 K/mm3 (0.9-3.2); Mean Corpuscular HGB Conc 31.9 g/dl (32-36); Mean Corpuscular Hemoglobin 27.3 pg (26-34); Mean Corpuscular Volume 85.7 fl (80-100); Nucleated Red Blood Cells Absolute Auto 0.000 K/mm3 (0.0-0.012); Nucleated Red Blood Cells Perc 0.0 % (0.0-0.2); Platelet Count Result 363 k/mm3 (150-375); Red Blood Count 4.98 M/mm3 (4.2-5.4); White Blood Count 9.7 K/mm3 (4.5-10.0)
[2024-09-17 09:07] LABS: Alanine Aminotransferase 19 U/L (6-35); Albumin Level 4.0 g/dL (3.5-5.1); Alkaline Phosphatase 115 U/L (38-126); Anion Gap 10 mmol/L (4-12); Aspartate Amino Transferase 31 U/L (14-36); Bilirubin,Total 0.5 mg/dL (0.2-1.3); Blood Urea Nitrogen 8 mg/dL (7-17); Calcium 9.1 mg/dL (8.4-10.2); Carbon Dioxide 21 mmol/L (22-30); Chloride 107 mmol/L (98-107); Cholesterol 249 mg/dL (0-200); Estimated Glomerular Filt Rate > 60; Glucose 97 mg/dL (65-110); HDL Direct 34 mg/dL; Potassium 3.9 mmol/L (3.4-5.0); Sodium 138 mmol/L (137-145); Total Protein 7.1 g/dL (6.3-8.2); Triglycerides 334 mg/dL (<150)
[2024-09-17 09:23] LABS: Hemoglobin A1C. 5.7 % (<5.7)
[2024-09-17 11:50] LABS: MALB Creatinine Ratio < 25.2 mg/g (0-30)
== END 2024-09-17 08:13 | disposition home or self-care (01) ==
LOC: ANHLAB 08:13
PROVIDERS: PCP Internal Medicine; Visit Provider Internal Medicine
DX: K86.1 Other chronic pancreatitis (principal); E78.5 Hyperlipidemia, unspecified; E11.9 Type 2 diabetes mellitus without complications
CPT/HCPCS: 36415; 80053; 80061; 82043; 83036; 85025

== ENCOUNTER 2024-09-23 07:12 | Outpatient (CLI) | payer BC, MEDICAID, SELFPAY ==
--- NOTE | ~2024-09-23 | CT_ITS ---
CT of the Abdomen and Pelvis: Indication: Ventral hernia Technique: 2.5 mm axial scans were obtained through the abdomen and pelvis following intravenous adm inistration of 100 cc of Omnipaque 350. Dose reduction technique was used on this scan by utilizing a utomated exposure control and iterative reconstruction technique. The dose-length product (DLP) was 1 455.32 mGy-cm. COMPARISON: 07/16/2023 Findings: Scans through the lung bases are unremarkable. There is diffuse hepatic steatosis. Cholecystectomy clips are present. The spleen, pancreas, and adre nal glands are within normal limits. Multiple bilateral nonobstructing renal stones are present, shaggy uring up to 16 mm in length and the right kidney. No evidence of aortic aneurysm. No lymphadenopathy . No bowel obstruction or bowel wall thickening. There is no evidence to suggest acute appendicitis. Sm all ventral fat-containing hernia is present superior to the umbilicus. Images through the pelvis were performed. Urinary bladder unremarkable. No pelvic mass seen. No ascit es. Impression: Small ventral fat-containing hernia superior to the umbilicus is similar to prior exam. Diffuse hepatic steatosis. Bilateral nonobstructing renal stones. Reviewed, dictated and finalized at location . Impression: Small ventral fat-containing hernia superior to the umbilicus is similar to adrian or exam. Diffuse hepatic steatosis. Bilateral nonobstructing renal stones.
--- OUTSIDE RECORDS SUMMARY | 2024-09-23 07:16 | XMS_ITS | Clinical Summary ---
Author Organization [facility] Address [address] [address] Care Team Providers Care Oil Painter Name Role Phone Lucio Nicole MD Primary Care Provider Cyrus Bailey MD Unavailable [phone] Source Comments [facility],non-owned Affiliates and Associated Physician Practices is amultiple site organization consisting of ambulatory clinics and hospital sitesin [place], [place], [place] and [place]. This disclosure is being madepursuant to the Care Everywhere program and may not contain all information available regarding this patient. Last updated 17.[facility] Allergies Active Allergy Reactions Criticality Noted Date [...] 4 times daily. 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 Not on file Not [...] CDT) Sodium 142 137 - 145 mmol/L [facility] Potassium 4.2 3.6 - 5.0 mmol/L [facility] Chloride 107 98 - 107 mmol/L [facility] BUN 11 7 - 17 mg/dl [facility] Creatinine 0.49(L) 0.52 - 1.04 mg/dl [facility] Glucose 95 65 - 105 mg/dl [facility] Calcium 9.6 8.4 - 10.2 mg/dl [facility] Alkaline Phosphatase 104 38 - 126 U/L [facility] AST 39 8 - 39 U/L [facility] Bilirubin Total 0.4 0.2 - 1.3 mg/dl [facility] Protein Total 6.9 6.3 - 8.2 gm/dl [facility] Albumin 4.1 3.9 - 5.0 gm/dl [facility] CO2 25 22 - 30 mmol/L [facility] ALT 17 9 - 52 U/L [facility] eGFR by MDRD 140 >60 mL/min/1.7 3m2 [facility] Comment eGFR [facility] Comment: The eGFR does not apply to patients who are younger than 18 or older than 70. BLOOD SPECIMEN / Unknown 08/05/2010 9:28 PM CDT 08/05/2010 9:39 PM CDT Sean Bolton DO LAB - CHEMISTRY ORDERABLES Fin al Result Performing Organization Address City/State/[facility] Co de Phone Number [facility] [address] [place] [address] from Last 3 Months or Most Recently Relevant to Health Maintenance Insurance [facility] MEDICAID - OUT OF STATE [facility] [place]ICA[place] - [place] [facility] MEDICAID - [place] Advance Directives * Full Code (Latest Code Status on File) Date Activated Date Inactivated Comments 08/06/2010 2:02 AM 08/13/2010 4:27 AM Care Teams Oil Painter Relationship Specialty Start Date End Date Lucio Nicole MD [address] [place] [phone] PCP - General 08/05/10 Cyrus Bailey MD [address] [place] [address] Referring Physician Orthopedic Surgery 06/09/14
--- OUTSIDE RECORDS SUMMARY | 2024-09-23 07:16 | XMS_ITS | Clinical Summary ---
Author Organization [facility] Address [address], [address] [address] Phone Care Team Providers Care Chemist Pharmaceutical Name Role Phone Mono Magaña DO Primary [...] as directed. Active nystatin-triamcin olone (MYCOLOG II) 360718-2.1 UNIT/GM-% Cream Apply 3 times daily. Affected [...] MG Tablet Take by mouth. Active Pancrelipase, Frn-Ypzr-Rhrm, [address] Particles Take 2 Caps [...] 08/04/2014 Colorectal Cancer Screening 08/04/2024 Influenza Immunization (#1) 2024 02/2 , 08/16/2011, 12/17/2001 Respiratory Syncytial Virus (RSV) Immunization [...] ID:Not on file Type:Not on file Address: [address] Care Teams Chemist Pharmaceutical Relationship Specialty Start Date End Date Mono Magaña DO [address] [facility] [address] [place] [address] PCP - General Internal Medicine 10/24/18
--- OUTSIDE RECORDS SUMMARY | 2024-09-23 07:16 | XMS_ITS | Clinical Summary ---
Author Organization [facility] Address [address] [place] [address] Care Team Providers Care Breastfeeding Educator Name Role Phone Unavailable Primary Care Provider [...]
--- OUTSIDE RECORDS SUMMARY | 2024-09-23 07:17 | XMS_ITS | Patient Health Record ---
Author Organization [facility] As [employer] [facility] Address [address] [place] [address] Care Team Providers Care Load Builder Name Role Phone Luc Munoz DO Primary Care Provider UnavailCandice Chirinos Unavailable [phone] Lis Rodríguez Unavailable [phone] Allergies Allergen (clinical drug ingredient) Drug/Non Drug [...] Oxazepam (BZO) P 0 - 300 ng/ml 9-ykbmptqial-1,4-xaebbwor-3,3-diphenylpyrrolidine (GHANSHYAM P) N 0 - 300 ng/ml Methamphetamine (MET) N 0 - 1000 ng/ml Methylenedioxymethamphetamine (MDMA) N 0 - 500 ng/ml Morphine (MOP 300/LVY1077) N 0 - 300 ng/ml Methadone (MTD) [...] % Ophthalmic 07/30/2023 Active Ergocalciferol 1.25 MG (90807 UT) Oral 07/30/2023 Active Zenpep 10,000-32,000 -42,000 unit ORAL *Pick strength-form from [employer] for eRX* 07/30/2023 Active Jublia 10 % External 07/30/2023 Active Terbinafine HCl 250 MG Oral 07/30/2023 Active Nurtec 75 MG Oral *Reorder from [employer] for eRx and Interaction Alerts* 07/30/2023 Active Fluticasone Propionate Diskus 50 MCG/ACT Inhalation *Reorder from [employer] for eRx and Interaction Alerts* 07/30/2023 Active [...] 120 MG/ML SUBCUTANEOUS PEN INJECTOR *Reorder from [employer] for eRx and Interaction Alerts* 07/30/2023 Active Meclizine HCl 12.5 MG Oral 07/30/2023 Active Linzess 290 MCG Oral 07/30/2023 Act ken Cholecalciferol 1.25 MG (79481 UT) Oral 07/30/2023 Active Norethindrone 0.35 MG Oral 07/30/2023 Active Nystatin-Triamcinolon e 310766-0.1 UNIT/GM External 07/30/2023 Active Sodium Fluoride 1.1 % Dental Paste *Reorder from [facility] for eRx and Interaction Alerts* 07/30/2023 Active lamoTRIgine 200 MG 1 tablet Oral twice a day; Duration: 30 days Active Ezetimibe 10 MG Oral 07/30/2023 Act ken Vraylar 3 MG 1 capsule Oral Once a day; Duration: 90 days PA approved 03/10/24-04/09/25 04/09/2024 Active Nystop 970162 UNIT/GM External 07/30/2023 Active Benzonatate 200 MG [...] Calcitriol 0.25 MCG Oral 07/30/2023 Active Ipratropium [place] 0.06 % Nasal 07/30/2023 Active metroNIDAZOLE 500 MG Oral 07/30/2023 Active Promethazine HCl 12.5 MG Oral 07/30/2023 Active Immunizations Vaccine Route Administration Date Status Comme nts Tdap Unknown 03/19/2008 Administered Td (adult), adsorbed Unknown 03/19/2001 Administered Pfizer-[employer] Covid-19 Vac cine 1st dose Unknown 11/06/2021 Administered Pfizer [employer] Covid-19 Vac cine 2nd dose Unknown 06/01/2020 Administered Pfizer [employer] Covid-19 Vac cine 2nd dose Unknown 06/22/2020 Administered Pfizer [employer] Covid-19 Vac cine 2nd dose Unknown 02/27/2021 Administered Novel Pybvvnsnu-[id number], preservative free Unknown 05/08/2014 Administered Influenza, unspecified formulation Unknown 08/16/2011 A dministered Influenza, seasonal, injecta ble, preservative free, 3 yrs and above Unknown 12/17/2001 Administered Social History Sex Assigned At : Social History Observation Description Sex Assigned At Female Problems Problem Type SNOMED Code ICD Code Onset Dates Problem Status W/U Status Risk Notes Problem Bipolar disorder (58206626) Other bipolar disorder (F31.89) 07/30/19 Active confirmed Problem Bipolar disorder (63951037) Bipolar disorder, unspecified (F31.9) Active confirmed Problem Generalized anxiety disorder (74614339) Generalized anxiety disorder (F41.1) 07/30/19 Active confirmed Problem Posttraumatic stress disorder (56835254) Post-traumatic stress disorder, chronic (F43.12) 07/30/19 Active confirmed Problem Primary insomnia (9904830) Primary insomnia (F51.01) 07/30/19 Active confirmed Problem Drug-induced tardive dystonia (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) Drug induced subacute dyskinesia (G24.01) 07/30/19 Active confirmed Problem Screening for cardiovascular system disease (588288825) Encounter for screening for cardiovascular disorders (Z13.6) Active confirmed Problem Long-term current use of drug therapy (184879627) Other intermediate card tender (current) drug therapy (Z79.899) 07/30/19 Active confirmed Problem Psychogenic skin symptoms (254121144) Excoriation (skin-picking) disorder (F42.4) 07/30/19 Active confirmed Problem Depression Screening (847660511) Encounter for screening for depression (Z13.31) Active confirmed Problem Bipolar disorder (02723822) Depressed bipolar disorder (F31.9) Active confirmed Problem Dry mouth (96503538) Dry mouth (R68.2) Active confirmed Vital Signs Heart Rate 83 /min 08/18/2024 Respiratory Rate 16 /min 08/18/2024 Height-cm 160.02 cm 08/18/2024 Blood pressure diastolic 62 mm Hg 08/18/2024 Weight-kg 110.68 kg 08/18/2024 Height 63.00 in 08/18/2024 Blood pressure systolic 122 mm Hg 08/18/2024 Weight 244.0 lbs 08/18/2024 BMI 43.22 kg/m2 08/18/2024 Encounters Encounter Location Date Provider Diagnosis [facility] [employer] [place] [id number] [facility] [address] [address] 09/24/2023 Lis Hemann Post-traumatic stres s disorder, chronic F43.12 ; Generalized anxiety disorder F41.1 ; Excoriation (skin-picking) disorder F42.4 and Other bipolar disorder F31.89 [facility] [employer] [address] 10/15/2023 Lis Hemann Post-traumatic stres s disorder, chronic F43.12 ; Excoriation (skin-picking) disorder F42.4 ; Other bipolar disorder F31.89 and Generalized anxiety disorder F41.1 [facility] [employer] [address] [address] 10/29/2023 Lis Hemann Post-traumatic stres s disorder, chronic F43.12 ; Excoriation (skin-picking) disorder F42.4 ; Other bipolar disorder F31.89 and Generalized anxiety disorder F41.1 [facility] [employer] [place] [address] [facility] [address] [address] 11/12/2023 Candice Machado Generalized anxiety disorder F41.1 ; Depressed bipolar disorder F31.9 ; Primary insomnia F51.01 ; Post-traumatic stress disorder, chronic F43.12 ; Other intermediate card tender (current) drug therapy Z79.899 ; Excoriation (skin-picking) disorder F42.4 and Drug induced subacute dyskinesia G24.01 [place] [address] [address] 11/12/2023 Lis Hemann Post-traumatic stres s disorder, chronic F43.12 ; Excoriation (skin-picking) disorder F42.4 and Generalized anxiety disorder F41.1 [place] [address] [facility] [address] [place] [address] 12/03/2023 Lis Hemann Post-traumatic stres s disorder, chronic F43.12 ; Excoriation (skin-picking) disorder F42.4 and Generalized anxiety disorder F41.1 [place] [address] [address] 01/14/2024 Lis Hemann Post-traumatic stres s disorder, chronic F43.12 ; Bipolar disorder, unspecified F31.9 and Excoriation (skin-picking) disorder F42.4 [place] [address] [address] 01/21/2024 Lis Hemann Post-traumatic stres s disorder, chronic F43.12 ; Depressed bipolar disorder F31.9 ; Generalized anxiety disorder F41.1 and Excoriation (skin-picking) disorder F42.4 [place] [address] [address] 02/25/2024 Lis Hemann Post-traumatic stres s disorder, chronic F43.12 ; Depressed bipolar disorder F31.9 ; Generalized anxiety disorder F41.1 and Excoriation (skin-picking) disorder F42.4 [facility] [address] [address] 02/28/2024 Candice Machado Generalized anxiety disorder F41.1 ; Depressed bipolar disorder F31.9 ; Primary insomnia F51.01 ; Post-traumatic stress disorder, chronic F43.12 ; Other custodial (current) drug therapy Z79.899 ; Excoriation (skin-picking) disorder F42.4 ; Drug induced subacute dyskinesia G24.01 ; Dry mouth R68.2 and Hypertension, unspecified type 401.9 [place] [address] [address] 03/03/2024 Lis Hemann Post-traumatic stres s disorder, chronic F43.12 ; Depressed bipolar disorder F31.9 ; Generalized anxiety disorder F41.1 and Excoriation (skin-picking) disorder F42.[address] [address] 04/07/2024 Lis Hemann Post-traumatic stres s disorder, chronic F43.12 ; Depressed bipolar disorder F31.9 ; Generalized anxiety disorder F41.1 and Excoriation (skin-picking) disorder F42.[address] [address] 05/26/2024 Candice Machado Generalized anxiety disorder F41.1 ; Depressed bipolar disorder F31.9 ; Primary insomnia F51.01 ; Post-traumatic stress disorder, chronic F43.12 ; Other custodial (current) drug therapy Z79.899 ; Excoriation (skin-picking) disorder F42.4 ; Drug induced subacute dyskinesia G24.01 and Dry mouth R68.[address] [address] 06/23/2024 Lis Hemann Post-traumatic stres s disorder, chronic F43.12 ; Depressed bipolar disorder F31.9 ; Generalized anxiety disorder F41.1 and Excoriation (skin-picking) disorder F42.4 [place] [address] [address] 06/30/2024 Lis Hemann Post-traumatic stres s disorder, chronic F43.12 ; Depressed bipolar disorder F31.9 ; Generalized anxiety disorder F41.1 and Excoriation (skin-picking) disorder F42.4 [place] [address] [address] 07/28/2024 Lis Hemann Post-traumatic stres s disorder, chronic F43.12 ; Generalized anxiety disorder F41.1 and Depressed bipolar disorder F31.9 [place] [address] [facility] [address] [place] [address] 08/18/2024 Candice Machado Encounter for screen ing for depression Z13.31 ; Depressed bipolar disorder F31.9 ; Encounter for screening for cardiovascular disorders Z13.6 ; Generalized anxiety disorder F41.1 ; Primary insomnia F51.01 ; Post-traumatic stress disorder, chronic F43.12 ; Other intermediate card tender (current) drug therapy Z79.899 ; Excoriation (skin-picking) disorder F42.4 ; Drug induced subacute dyskinesia G24.01 and Dry mouth R68.2 [facility] [employer] [place] [address] [address] 08/18/2024 Lis Hemdavid Post-traumatic stres s disorder, chronic F43.12 ; Generalized anxiety disorder F41.1 and Depressed bipolar disorder F31.9 [facility] [employer] [place] [address] [address] 09/12/2024 Lis Hemann Post-traumatic stres s disorder, chronic F43.12 ; Generalized anxiety disorder F41.1 and Depressed bipolar disorder F31.9 [facility] [employer] [place] [address] [address] 04/08/2024 Candice Machado Bipolar disorder, unspecified F31.9 [facility] [employer] [address] [address] 09/12/2024 Lis Rodríguez Assessments Encounter Date Diagnosis [...] mouth . Long-term drug therapy 11/12/2023 Other custodial (current) drug therapy (ICD-10 - Z79.899) Medication [...] 12/26/21 5. Long-term drug therapy 05/26/2024 Other custodial (current) drug therapy (ICD-10 - Z79.899) Medication [...] mouth . Long-term drug therapy 02/28/2024 Other intermediate card tender (current) drug therapy (ICD-10 - Z79.899) Medication [...] mouth . Long-term drug therapy 08/18/2024 Other custodial (current) drug therapy (ICD-10 - Z79.899) Medication [...] 10/03/2024 01:00:00 PM, [address], [facility] [address], [place], [address], Provider Name:Lis Rodríguez, 10/07/2024 09:00:00 AM, [address], [facility] [address], [place], [address], Provider Name:Lis Rodríguez, 10/22/2024 09:00:00 AM, [address], [facility] [address], [place], [address], Provider Name:Candice Jeannette , 11/18/2024 11:45:00 AM, [address], [place] [address], [place], [address], Insurance Providers Payer Name Payer Address Payer Phone Subscriber Number Group Number Insured Name Patient Relationship to Insured Coverage Start Date Coverage End Date [facility] Ppo [address] [place] [address] [id number] FREDDY LIN Self - patient is the insured Medicaid-I l Medicaid [address] [address] [place] [address] [id number] FREDDY LIN Self - patient is the insured Medical (General) History Medical History History ICD Code Problems: Chronic post-traumatic stress disorder Cortical blindness Generalized anxiety disorder History of eating disorder Long-term drug therapy Mild bipolar disorder Movement disorder Overweight Primary insomnia Repetitive self-excoriation Severe depressed bipolar I disorder with psychotic features Suicidal thoughts Tardive dyskinesia ,
== END 2024-09-23 07:13 | disposition home or self-care (01) ==
PROVIDERS: PCP Internal Medicine; Visit Provider Nurse Practitioner
DX: K43.2 Incisional hernia without obstruction or gangrene (principal); K76.0 Fatty (change of) liver, not elsewhere classified; N20.0 Calculus of kidney
CPT/HCPCS: 74177; Q9967

== ENCOUNTER 2024-10-08 08:24 | Outpatient (CLI) | payer BC, MEDICAID, SELFPAY ==
--- OUTSIDE RECORDS SUMMARY | 2024-10-08 08:31 | XMS_ITS | Referral Summary ---
Author Organization [facility] [address] Address [address] [place] [address] Care Team Providers Care Blasting Gang Miner Name Role Phone Luc Munoz Primary Care Provider [phone] Encounters Date Type Department Care Team Description 09/03/2024 Telephone [facility] Neurology [address] [place] [address] [place] [phone] Lynn Balderrama NP 08/25/2024 11:00 AM CDT Office Visit [facility] Neurology [address] [place] [address] [place] [phone] Lynn Balderrama, LINE MANAGER Migraine without aura, not intractable, without status [...] mouth 2 (two) times a day 2 7 Active albuterol HFA (PROVENTIL HFA,VENTOLIN HFA) 90 mcg/actuation inhaler as needed Active clonazePAM (KlonoPIN) 0.5 mg tablet TK 1 T PO QID 2 7 Active cholecalciferol (VITAMIN D-3) 1,000 unit Reported on 07/26/2016 Active estradiol (VIVELLE-DOT) 0.1 mg/24 hr APPLY TWICE PER WEEK 3 7 Active fludrocortisone 0.1 mg tablet TK 1 T PO BID 6 Active lamoTRIgine (LaMICtal) 200 mg tablet TK 1 T PO BID 2 7 Active metoclopramide (REGLAN) 1 mg/mL solution Take 20 mL (20 mg total) by mouth 2 (two) times a day 2 7 Active melatonin tablet Act ken polyethylene glycol (MIRALAX) 17 gram/dose powder Take 17 g by mouth 7 Active trimethoprim (TRIMPEX) 100 mg tablet 9 7 Active docusate sodium (COLACE) 50 mg capsuleIndications :constipation Take by mouth nightly. Active lansoprazole (PREVACID) 30 mg capsule Take 1 capsule (30 mg total) by mouth 2 (two) times a day Active vit C,O-Hx-drmyj-lutei n-zeaxan 217-219-25-1 gw-ctwt-ib-mg capsule Take by mouth 2 (two) times a day. Active cetirizine (ZyrTEC) 10 mg tablet Take by mouth Active dicyclomine (BENTYL) 20 mg tablet TK 1 T PO QID PRF CRAMPING 0 Active ergocalciferol (VITAMIN D) 50,000 unit capsule TK 1 C PO Q WEEK ON Sunday 0 Active ezetimibe (ZETIA) 10 mg tablet TK 1 T PO D 0 Active PreviDent 5000 Plus 1.1 % cream U BID UTD 0 Active fluticasone propionate (FLONASE) 50 mcg/actuation nasal spray Administer 1-2 sprays into affected nostril(s) daily Active Xiidra 5 % dropperette INT 1 GTT IN OU BID 0 Active nystatin-triamcino lone cream APPLY TOPICALLY PRN 0 Active promethazine (PHENERGAN) 12.5 mg tablet TK 1 T PO QID PRN FOR NAUSEA 0 Active sucralfate (CARAFATE) 1 gram tablet TK 1 T PO QID 0 Active tamsulosin (FLOMAX) 0.4 mg extended release capsule TK 1 C PO D 0 Active AntifungaL, tolnaftate, 1 % powder ROZINA TOPICALLY AA BID 0 Active rosuvastatin (CRESTOR) 40 mg tablet TK 1 T PO D 0 Active diclofenac 0.1 % ophthalmic solution 0 Active prednisoLONE acetate (PRED FORTE) 1 % ophthalmic suspension INSTILL 1 DROP IN LEFT EYE THREE TIMES DAILY FOR 1 WEEK THEN TWICE DAILY FOR 1 WEEK THEN EVERY DAY FOR 1 WEEK 0 Active traZODone (DESYREL) 100 mg tablet Take 1 tablet (100 mg total) by mouth nightly at bedtime 1 Active Zenpep 10,000-32,000 -42,000 unit per capsule TAKE 2 CAPSULES BY MOUTH FOUR TIMES DAILY BEFORE MEALS AND AT NIGHT 0 Active venlafaxine XR (EFFEXOR-XR) 75 mg 24 hr capsule Take 1 capsule (75 mg total) by mouth every morning 1 Active ondansetron ODT (ZOFRAN-ODT) 8 mg disintegrating tablet DISSOLVE 1 TABLET ON THE TONGUE EVERY 8 HOURS NEEDED FOR NAUSEA 0 Active fluticasone propion-salmeteroL (ADVAIR DISKUS) 500-50 mcg/dose diskus inhaler Inhale 1 puff 2 (two) times a day Rinse mouth with water after use. Do not swallow. Active topiramate (TOPAMAX) 200 mg tabletIndications: Migraine without aura, not intractable, without status migrainosus Take 1 tablet (200 mg total) by mouth 2 (two) times a day 60 tablet 11 1 Active carboxymethyl-gly- hmve81-PU 0.5-1-0.5 % dropperette Administer into affected eye(s) Active Trulance 3 mg tablet Take 1 tablet (3 mg total) by mouth daily 2 Active ipratropium (ATROVENT) 42 mcg (0.06 %) nasal spray Administer into each nostril 3 (three) times a day 2 Active Vraylar 1.5 mg capsule 2 Active meclizine (ANTIVERT) 12.5 mg tabletIndications: Dizziness and giddiness Take 1 tablet (12.5 mg total) by mouth 3 (three) times a day as needed for dizziness 30 tablet 5 2 Active calcitRIOL (ROCALTROL) 0.25 mcg capsule Take 1 capsule (0.25 mcg total) by mouth 2 (two) times a week 4 Active Airsupra 90-80 mcg/actuation HFA aerosol inhaler INAHLE 2 PUFFS 6 TIMES PER DAY NEEDED FOR SHORTNESS OF BREATH 4 Active clotrimazole-betam ethasone (LOTRISONE) cream APPLY TOPICALLY TO THE AFFECTED AREA TWICE DAILY 4 Active montelukast (SINGULAIR) 10 mg tablet Take 1 tablet (10 mg total) by mouth nightly at bedtime 4 Active Premarin 1.25 mg tablet Take 1 tablet (1.25 mg total) by mouth daily 4 Active galcanezumab-gnlm (Emgality Pen) 120 mg/mL pen injectorIndication s:Migraine Prevention Inject 120 mg under the skin every 30 (thirty) days 1 mL 11 5 Active rimegepant (Nurtec ODT) tablet,disintegrat ingIndications:Severino bhanu without aura, not intractable, without status migrainosus Place 1 tablet (75 mg total) under the tongue daily as needed (migraine) 8 tablet 11 5 025 Active Active Problems Problem Noted Date Diagnosed Date Dizziness and giddiness 05/17/2020 Assessment & Plan (05/17/2020 2:06 PM TOE LASTER): Patient has a history of episodic dizziness [...] year. Assessment & Plan (05/17/2020 2:05 PM TOE LASTER): Patient had adverse effects with propranolol prescribed [...] similar to what she has had in [facility] but she still having them the majority [...] have on her headache, but I did spiritual counselor her that potentially it could exacerbate [...] pancreatitis or GERD. She will see her biofuels product development manager in January. Assessment & Plan (10/09/2016 1:03 [...] on file Legal Sex Female 7:41 PM TOE LASTER Gender Identity Not on file Sexual Orientation [...] Most Recently Relevant to Health Maintenance [facility] [place] CHO[place] Care Teams Blasting Gang Miner Relationship Specialty Start Date End Date Luc Munoz DO [address] [facility] [address] [place] [address] PCP - General Internal Medicine 08/25/24
--- OUTSIDE RECORDS SUMMARY | 2024-10-08 08:31 | XMS_ITS | Clinical Summary ---
Author Organization [facility] [address] Address [address] [place] [address] Care Team Providers Care Utility Helicopter Repairer Name Role Phone Luc Munoz Primary Care Provider [phone] Allergies Active Allergy Reactions Criticality Noted Date [...] 2 (two) times a day Active vit C,S-Pw-eoahf-lutei n-zeaxan 306-331-37-1 xn-ffgk-eg-mg capsule Take by mouth 2 (two) times [...] day 60 tablet 11 1 Active carboxymethyl-gly- mbtx08-NN 0.5-1-0.5 % dropperette Administer into affected eye(s) [...] 05/17/2020 Assessment & Plan (05/17/2020 2:06 PM [employer]): Patient has a history of episodic dizziness [...] year. Assessment & Plan (05/17/2020 2:05 PM [employer]): Patient had adverse effects with propranolol prescribed [...] similar to what she has had in [facility] but she still having them the majority [...] have on her headache, but I did estate planning counselor her that potentially it could exacerbate [...] pancreatitis or GERD. She will see her outdoor adventure instructor in January. Assessment & Plan (10/09/2016 1:03 [...] Type Department Care Team Description 09/03/2024 Telephone [facility] Neurology [address] [place] [phone] Lynn Balderrama NP 08/25/2024 11:00 AM CDT Office Visit [facility] Neurology [address] [place] [address] [address] [place] [address] Lynn Balderrama NP Migraine without aura, not [...] on file Legal Sex Female 7:41 PM [employer] Gender Identity Not on file Sexual Orientation [...] BL CHOICE PRF [place] Care Teams Utility Helicopter Repairer Relationship Specialty Start Date End Date Luc Munoz DO [address] [address] PCP - General Internal Medicine 08/25/24
--- OUTSIDE RECORDS SUMMARY | 2024-10-08 08:31 | XMS_ITS ---
Author Organization [facility] [place] Address [address] [place] [address] Care Team Providers Care Cash Person Name Role Phone Tammy Luc Primary Care Provider Candice Chanel Unavailable [phone] Lis Tyler Unavailable [phone] REASON FOR VISIT Therapy Visit Medications Medication SIG (Take, Route, Frequency, Duration) Notes Start Date End Date Status Rosuvastatin Calcium 40 MG Oral 07/30/2023 Active Montelukast Sodium 10 MG Oral 07/30/2023 Active HYDROcodone-Acetamino phen 5-325 MG Oral 07/30/2023 Active Xiidra 5 % Ophthalmic 07/30/2023 Active PreviDent 5000 Plus 1.1 % Dental 07/30/2023 Active Fludrocortisone Acetate 0.1 MG Oral 07/30/2023 Active Promethazine HCl 12.5 MG Oral 07/30/2023 Active metroNIDAZOLE 500 MG Oral 07/30/2023 Active Ipratropium Kempton 0.06 % Nasal 07/30/2023 Active Calcitriol 0.25 MCG Oral 07/30/2023 Active Albuterol Sulfate (2.5 MG/3ML) 0.083% Inhalation 07/30/2023 Active Phenazopyridine HCl 100 MG Oral 07/30/2023 Active Metoclopramide HCl 5 MG/5ML Oral 07/30/2023 Active Acyclovir 800 MG Oral 07/30/2023 Ac tive Clobetasol Propionate 0.05% External 07/30/2023 Active Bepreve 1.5 % Ophthalmic 07/30/2023 Acti ve Sucralfate 1 GM Oral 07/30/2023 Act ken Azelastine HCl 0.05 % Ophthalmic 07/30/2023 Active Trulance 3 MG Oral 07/30/2023 Activ e Tamsulosin HCl 0.4 MG Oral 07/30/2023 Active Trimethoprim 100 MG Oral 07/30/2023 Active Nystop 322957 UNIT/GM External 07/30/2023 Active Ezetimibe 10 MG Oral 07/30/2023 Act ken Sodium Fluoride 1.1 % Dental Paste *Reorder from [facility] for eRx and Interaction Alerts* 07/30/2023 Active Clotrimazole-Betameth asone 1-0.05 % External 07/30/2023 Active Norethindrone 0.35 MG Oral 07/30/2023 Active traMADol HCl 50 MG Oral 07/30/2023 Active traZODone HCl 100 MG 1 tablet Oral bedtime; Duration: 30 days Active lamoTRIgine 200 MG 1 tablet Oral twice a day; Duration: 30 days Active clonazePAM 0.5 MG 1 tablet Oral four times a day; Duration: 30 days 08/18/2024 Active Vraylar 3 mg take one capsule daily Oral daily; Duration: 30 days Active Benzonatate 200 MG Oral 07/30/2023 Not-Taking Venlafaxine HCl ER 75 MG 1 capsule in the morning Oral Once a day; Duration: 30 days Active Sertraline HCl 50 MG 1 tablet Oral Once a day; Duration: 30 days Active Sertraline HCl 100 MG 1 tablet Oral Once a day; Duration: 30 days Active Vraylar 3 MG 1 capsule Oral Once a day; Duration: 90 days PA approved 03/10/24-04/09/25 04/09/2024 Active lamoTRIgine 200 MG 1 tablet Oral twice a day; Duration: 30 days Active Nystatin-Triamcinolon e 329898-5.1 UNIT/GM External 07/30/2023 Active Cholecalciferol 1.25 MG (08190 UT) Oral 07/30/2023 Active Linzess 290 MCG Oral 07/30/2023 Act ken Tolnaftate 1 % External 07/30/2023 Acti ve Meclizine HCl 12.5 MG Oral 07/30/2023 Active EMGALITY PEN 120 MG/ML SUBCUTANEOUS PEN INJECTOR *[facility] and Interaction Alerts* 07/30/2023 Active Ondansetron 8 MG Oral 07/30/2023 Ac tive Melatonin 10 mg Oral 07/30/2023 Act ken Dicyclomine HCl 20 MG Oral 07/30/2023 Active Premarin 1.25 MG Oral 07/30/2023 Ac tive Mupirocin 2% External 07/30/2023 Active Advair Diskus 250-50 MCG/DOSE Inhalation 07/30/2023 Active Fluticasone Propionate Diskus 50 MCG/ACT Inhalation *Reorder from [facility] for eRx and Interaction Alerts* 07/30/2023 Active Nurtec 75 MG Oral *Reorder from [facility] for eRx and Interaction Alerts* 07/30/2023 Active Terbinafine HCl 250 MG Oral 07/30/2023 Active Jublia 10 % External 07/30/2023 Active Zenpep 10,000-32,000 -42,000 unit ORAL *Pick strength-form from [employer] for eRX* 07/30/2023 Active Ergocalciferol 1.25 MG (19074 UT) Oral 07/30/2023 Active Diclofenac Sodium 0.1 % Ophthalmic 07/30/2023 Active Social History Sex Assigned At : Social History Observation Description Sex Assigned At Female Encounters Encounter Location Date Provider Diagnosis [facility] [address] [place] [address] 10/07/2024 Lis Tyler Post-traumatic stres s disorder, chronic F43.12 ; Generalized anxiety disorder F41.1 and Depressed bipolar disorder F31.9 Assessments Encounter Date Diagnosis (ICD Code) Assessment Notes Treatment Notes Treatment Clinical Notes Section Notes 10/07/2024 Post-traumatic stress disorder, chronic (ICD-10 - F43.12) 10/07/2024 Generalized anxiety disorder (ICD-10 - F41.1) 10/07/2024 Depressed bipolar disorder (ICD-10 - F31.9) Plan Of Treatment Next Appt Details Follow Up: 2 Weeks, Reason: Provider Name:Lis Tyler, 10/22/2024 09:00:00 AM, [address], [address], [place], [address], Provider Name:Lis Tyler, 11/04/2024 09:00:00 AM, [address], [address], [address], Provider Name:Lis Tyler, 11/18/2024 10:00:00 AM, [address], [address], [address], Provider Name:Candice Machado , 11/18/2024 11:45:00 AM, [facility], [address], [address], Provider Name:Lis Tyler, 12/04/2024 09:00:00 AM, [facility], [address], [address], Progress Notes * MIRTA NEVAREZENDOB:1970 (54 yo F)Acc No.[id number]:10/07/2024 Patient: Milena MARKBRISEYDARAJIANGELFREDDY Provider: Georgiana TYLER LCSW :1970 A ge:54 Y S ex:Female Date:10/07/2024 Address:[facility] Pcp:Luc Munoz DO Data: * Time Tracker: * Date Start Time End Time Duration User Type Captured By Mode Notes 10/07/2024 09:16 AM 10:09 AM 00:53:07 Therapist Lis Tyler * Chief Complaints: * 1 . Therapy Visit. * HPI: P sychotherapy Information: DATE: 07 October 2024 CHIEF COMPLAINT: Medical stressors SYMPTOMS: Chronic pain, amotivation, SEVERITY: Moderate CONTEXT: Foot paint returned- torn tendon Will have to do 24 hour urine fo rviatmin D level- Discussed hx hsopitalization for psych and traumatic experience years ago. SI/HI: Cl. denied current suicidal or homicidal ideation THERAPY MODALITY: Person centered/ INTERVENTION: During this session, clinician encouraged Cl. to discuss and process thoughts and feelings related to medical stressors and depressed mood for purpose of gaining insight. Clinician provided support and validation where appropriate. RESPONSE: Cl. participated actively in discussion and provided relevant feedback. PROGNOSIS: Prognosis is good PROGRESS: Cl. is making good progress. PLAN: See Treatment Plan. * Medications: T silasg traMADol HCl 50 MG Tablet Oral , Taking Norethindrone 0.35 MG Tablet Oral , Taking Sodium Fluoride 1.1 % Dental Paste , Notes to Pharmacist: *Reorder from [employer] for eRx and Interaction Alerts*, Taking Ezetimibe 10 MG Tablet Oral , Taking Nystop 609732 UNIT/GM Powder External , Taking Trimethoprim 100 MG Tablet Oral , Taking Clotrimazole-Betamethasone 1-0.05 % Cream External , Taking Tamsulosin HCl 0.4 MG Capsule Oral , Taking Trulance 3 MG Tablet Oral , Taking Azelastine HCl 0.05 % Solution Ophthalmic , Taking Sucralfate 1 GM Tablet Oral , Taking Bepreve 1.5 % Solution Ophthalmic , Taking Clobetasol Propionate 0.05% Cream External , Taking Acyclovir 800 MG Tablet Oral , Taking Metoclopramide HCl 5 MG/5ML Solution Oral , Taking Phenazopyridine HCl 100 MG Tablet Oral , Taking Albuterol Sulfate (2.5 MG/3ML) 0.083% Nebulization Solution Inhalation , Taking Calcitriol 0.25 MCG Capsule Oral , Taking Ipratropium Kempton 0.06 % Solution Nasal , Taking metroNIDAZOLE 500 MG Tablet Oral , Taking Promethazine HCl 12.5 MG Tablet Oral , Taking Fludrocortisone Acetate 0.1 MG Tablet Oral , Taking PreviDent 5000 Plus 1.1 % Cream Dental , Taking Xiidra 5 % Solution Ophthalmic , Taking HYDROcodone-Acetaminophen 5-325 MG Tablet Oral , Taking Montelukast Sodium 10 MG Tablet Oral , Taking Rosuvastatin Calcium 40 MG Tablet Oral , Taking Diclofenac Sodium 0.1 % Solution Ophthalmic , Taking Ergocalciferol 1.25 MG (83754 UT) Capsule Oral , Taking Zenpep 10,000-32,000 - 42,000 unit CAPSULE,DELAYED RELEASE (ENTERIC COATED) ORAL , Notes to Pharmacist: *Pick strength-form from [employer] for eRX*, Taking Jublia 10 % Solution External , Taking Terbinafine HCl 250 MG Tablet Oral , Taking Nurtec 75 MG Tablet Disintegrating Oral , Notes to Pharmacist: *Reorder from [employer] for eRx and Interaction Alerts*, Taking Fluticasone Propionate Diskus 50 MCG/ACT Aerosol Powder Breath Activated Inhalation , Notes to Pharmacist: *Reorder from [facility] for eRx and Interaction Alerts*, Taking Advair Diskus 250-50 MCG/DOSE Aerosol Powder Breath Activated Inhalation , Taking Mupirocin 2% Ointment External , Taking Premarin 1.25 MG Tablet Oral , Taking Dicyclomine HCl 20 MG Tablet Oral , Taking Tolnaftate 1 % Powder External , Taking Melatonin 10 mg Tablet Oral , Taking Ondansetron 8 MG Tablet Disintegrating Oral , Taking EMGALITY PEN 120 MG/ML SUBCUTANEOUS PEN INJECTOR , Notes to Pharmacist: *Reorder from [facility] for eRx and Interaction Alerts*, Taking Meclizine HCl 12.5 MG Tablet Oral , Taking Linzess 290 MCG Capsule Oral , Taking Cholecalciferol 1.25 MG (31125 UT) Capsule Oral , Taking Nystatin-Triamcinolone 848564-2.1 UNIT/GM Cream External , Taking lamoTRIgine 200 MG Tablet 1 tablet Oral twice a day , Taking Vraylar 3 MG Capsule 1 capsule Oral Once a day , Notes to Pharmacist: JORGE approved 03/10/24-04/09/25, Taking Vraylar 3 mg Capsule take one capsule daily Oral daily , Taking Sertraline HCl 100 MG Tablet 1 tablet Oral Once a day , Taking Sertraline HCl 50 MG Tablet 1 tablet Oral Once a day , Taking Venlafaxine HCl ER 75 MG Capsule Extended Release 24 Hour 1 capsule in the morning Oral Once a day , Taking clonazePAM 0.5 MG Tablet 1 tablet Oral four times a day , Taking lamoTRIgine 200 MG Tablet 1 tablet Oral twice a day , Taking traZODone HCl 100 MG Tablet 1 tablet Oral bedtime , Not-Taking Benzonatate 200 MG Capsule Oral * Examination: P sychiatry: Appearance: w ell-groomed. Affect / mood: a ppropriate. Attention: n ormal in conversation. Attitude: c ooperative. Homicidal ideation: n one. Suicidal ideation: n one. Insight: g ood. Intellectual functioning: a lor average. Orientation: a wake, alert and oriented x 3. Speech / language: a ppropriate pitch/modulation. Thought content: a ppropriate. Thought process: i ntact. Assessment: * Assessment: 1. P ost-traumatic stress disorder, chronic - F43.12 (Primary) 2 . G eneralized anxiety disorder - F41.1 3 . D epressed bipolar disorder - F31.9 Plan: * Treatment: * Procedure Codes: 9 0837 PSYCHOTHERAPY W/PATIENT 60 MINUTES, 1036F TOBACCO NON-USER * Follow Up: 2 Weeks * Billing Information: * Visit Code: * Procedure Codes: 97872 PSYCHOTHERAPY W/PATIENT 60 MINUTES. 1036F TOBACCO NON-USER. * Sign off status: Completed Signatures: No Ad Hoc Signature Added true * Provider: Georgiana TYLER LCSW Date: 10/07/2024 Generated for Adán de la vega/Da/Kelsey on: 10/08/2024 08:30 AM CDT History and Physical Notes * HPI (History of Present Illness) Category Sub-Category Detail Notes Category Not es Psychotherapy Information DATE: 07 October 2024 CHIEF COMPLAINT: Medical stressors SYMPTOMS: Chronic pain, amotivation, SEVERITY: Moderate CONTEXT: Foot paint returned- torn tendon Will have to do 24 hour urine fo rviatmin D level- Discussed hx hsopitalization for psych and traumatic experience years ago. SI/HI: Cl. denied current suicidal or homicidal ideation THERAPY MODALITY: Person centered/ INTERVENTION: During this session, clinician encouraged Cl. to discuss and process thoughts and feelings related to medical stressors and depressed mood for purpose of gaining insight. Clinician provided support and validation where appropriate. RESPONSE: Cl. participated actively in discussion and provided relevant feedback. PROGNOSIS: Prognosis is good PROGRESS: Cl. is making good progress. PLAN: See Treatment Plan Examination Category Sub-Category Detail Notes Category Not es Psychiatry Appearance: well-groomed Attitude: cooperative Attention: normal in conversati on Orientation: awake, alert and rebeca ented x 3 Affect / mood: appropriate Speech / language: appropriate pitch/mo dulation Insight: good Thought process: intact Thought content: appropriate Suicidal ideation: none Homicidal ideation: none Intellectual functioning: above average
--- OUTSIDE RECORDS SUMMARY | 2024-10-08 08:31 | XMS_ITS | Clinical Summary ---
Author Organization [facility] Address [address] [place] [address] Care Team Providers Care Front Office Spec Name Role Phone Lucio Nicole MD Primary Care Provider Cyrus Bailey MD Unavailable [phone] Source Comments [facility],non-owned Affiliates and Associated Physician Practices is amultiple site organization consisting of ambulatory clinics and hospital sitesin [place], [place], [place] and [place]. This disclosure is being madepursuant to the Care Everywhere program and may not contain all information available regarding this patient. Last updated 17.[facility] Allergies Active Allergy Reactions Criticality Noted Date [...] 4 times daily. 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 Not on file Not [...] - URINE PROTEIN SCREENING 03/19/2024 INFLUENZA VACCINE (#1) 2024 12/17/2001 HIB VACCINE Aged Out No longer eligi [...] CDT) Sodium 142 137 - 145 mmol/L [facility] Potassium 4.2 3.6 - 5.0 mmol/L [facility] Chloride 107 98 - 107 mmol/L [facility] BUN 11 7 - 17 mg/dl [facility] Creatinine 0.49(L) 0.52 - 1.04 mg/dl [facility] Glucose 95 65 - 105 mg/dl [facility] Calcium 9.6 8.4 - 10.2 mg/dl [facility] Alkaline Phosphatase 104 38 - 126 U/L [facility] AST 39 8 - 39 U/L [facility] Bilirubin Total 0.4 0.2 - 1.3 mg/dl [facility] Protein Total 6.9 6.3 - 8.2 gm/dl [facility] Albumin 4.1 3.9 - 5.0 gm/dl [facility] CO2 25 22 - 30 mmol/L [facility] ALT 17 9 - 52 U/L [facility] eGFR by MDRD 140 >60 mL/min/1.7 3m2 [facility] Comment eGFR [facility] Comment: The eGFR does not apply to patients who are younger than 18 or older than 70. BLOOD SPECIMEN / Unknown 08/05/2010 9:28 PM CDT 08/05/2010 9:39 PM CDT eSan Bolton DO LAB - CHEMISTRY ORDERABLES Fin al Result Performing Organization Address City/State/[facility] Co de Phone Number [facility] [address] [place] [address] from Last 3 Months or Most Recently Relevant to Health Maintenance Insurance [facility] MEDICAID - OUT OF STATE [facility] MEDICAID - [place] [facility] MEDICAID - [place] Advance Directives * Full Code (Latest Code Status on File) Date Activated Date Inactivated Comments 08/06/2010 2:02 AM 08/13/2010 4:27 AM Care Teams Front Office Spec Relationship Specialty Start Date End Date Lucio Nicole MD [address] [place] [id number] PCP - General 08/05/10 Cyrus Bailey MD [address] [place] [address] Referring Physician Orthopedic Surgery 06/09/14
--- OUTSIDE RECORDS SUMMARY | 2024-10-08 08:31 | XMS_ITS | Clinical Summary ---
Author Organization [facility] Address [address] [place] [address] Care Team Providers Care Professor Of Astronomy Name Role Phone Unavailable Primary Care Provider [...]
--- OUTSIDE RECORDS SUMMARY | 2024-10-08 08:31 | XMS_ITS | Clinical Summary ---
Author Organization [facility] Address [address], [address] [address] Phone Care Team Providers Care Senior Water Resources Engineer Name Role Phone Mono Magaña DO Primary Care Provider [phone] Allergies Active Allergy Reactions Criticality Noted Date [...] as directed. Active nystatin-triamcin olone (MYCOLOG II) 211469-0.1 UNIT/GM-% Cream Apply 3 times daily. Affected [...] MG Tablet Take by mouth. Active Pancrelipase, Nal-Zlft-Kzyf, 94703-[address] units Capsule [address] Particles Take 2 Caps [...] on file Type:Not on file Address: [address] Care Teams Senior Water Resources Engineer Relationship Specialty Start Date End Date Mono Magaña DO [address] [facility] [address] [place] [address] PCP - General Internal Medicine 10/24/18
--- OUTSIDE RECORDS SUMMARY | 2024-10-08 08:31 | XMS_ITS | Patient Health Record ---
Author Organization [facility] Address [address] [place] [address] Care Team Providers Care Bicycle Courier Name Role Phone Luc Munoz DO Primary Care Provider UnavailCandice Chirinos Unavailable [phone] Lis Rodríguez Unavailable [phone] Allergies Allergen (clinical drug ingredient) Drug/Non Drug [...] Oxazepam (BZO) P 0 - 300 ng/ml 8-mbnqmhzlag-3,2-jaqrikfk-9,3-diphenylpyrrolidine (GHANSHYAM P) N 0 - 300 ng/ml Methamphetamine (MET) N 0 - 1000 ng/ml Methylenedioxymethamphetamine (MDMA) N 0 - 500 ng/ml Morphine (MOP 300/[id number]) N 0 - 300 ng/ml Methadone (MTD) N 0 - 300 ng/ml Phencyclidine (PCP) N 0 - 25 ng/ml Nortriptyline (TCA) N 0 - 1000 ng/ml Oxycodone N 0 - 300 ng/ml x N 0 - 300 ng/ml Reason For Referral No Information Medications Medication SIG (Take, Route, Frequency, Duration) Notes Start Date End Date Status Trulance 3 MG Oral 07/30/2023 Activ e Tamsulosin HCl 0.4 MG Oral 07/30/2023 Active Albuterol Sulfate (2.5 MG/3ML) 0.083% Inhalation 07/30/2023 Active Vraylar 3 mg take one capsule daily Oral daily; Duration: 30 days Active Phenazopyridine HCl 100 MG Oral 07/30/2023 Active Benzonatate 200 MG Oral 07/30/2023 Not-Taking Metoclopramide HCl 5 MG/5ML Oral 07/30/2023 Active Vraylar 3 MG 1 capsule Oral Once a day; Duration: 90 days PA approved 03/10/24-04/09/25 04/09/2024 Active Acyclovir 800 MG Oral 07/30/2023 Ac tive Clobetasol Propionate 0.05% External 07/30/2023 Active Bepreve 1.5 % Ophthalmic 07/30/2023 Acti ve Sucralfate 1 GM Oral 07/30/2023 Act ken Azelastine HCl 0.05 % Ophthalmic 07/30/2023 Active traZODone HCl 100 MG 1 tablet Oral bedtime; Duration: 30 days Active lamoTRIgine 200 MG 1 tablet Oral twice a day; Duration: 30 days Active clonazePAM 0.5 MG 1 tablet Oral four times a day; Duration: 30 days 08/18/2024 Active Venlafaxine HCl ER 75 MG 1 capsule in the morning Oral Once a day; Duration: 30 days Active Sertraline HCl 50 MG 1 tablet Oral Once a day; Duration: 30 days Active Sertraline HCl 100 MG 1 tablet Oral Once a day; Duration: 30 days Active metroNIDAZOLE 500 MG Oral 07/30/2023 Active Ipratropium Oscoda 0.06 % Nasal 07/30/2023 Active Calcitriol 0.25 MCG Oral 07/30/2023 Active Rosuvastatin Calcium 40 MG Oral 07/30/2023 Active Montelukast Sodium 10 MG Oral 07/30/2023 Active HYDROcodone-Acetamino phen 5-325 MG Oral 07/30/2023 Active Xiidra 5 % Ophthalmic 07/30/2023 Active PreviDent 5000 Plus 1.1 % Dental 07/30/2023 Active Fludrocortisone Acetate 0.1 MG Oral 07/30/2023 Active Promethazine HCl 12.5 MG Oral 07/30/2023 Active Diclofenac Sodium 0.1 % Ophthalmic 07/30/2023 Active Mupirocin 2% External 07/30/2023 Active Advair Diskus 250-50 MCG/DOSE Inhalation 07/30/2023 Active Fluticasone Propionate Diskus 50 MCG/ACT Inhalation *Reorder from [facility] for eRx and Interaction Alerts* 07/30/2023 Active Nurtec 75 MG Oral *Reorder from [facility] for eRx and Interaction Alerts* 07/30/2023 Active Terbinafine HCl 250 MG Oral 07/30/2023 Active Jublia 10 % External 07/30/2023 Active Zenpep 10,000-32,000 -42,000 unit ORAL *Pick strength-form from [facility] for eRX* 07/30/2023 Active Ergocalciferol 1.25 MG (40406 UT) Oral 07/30/2023 Active Premarin 1.25 MG Oral 07/30/2023 Ac tive Trimethoprim 100 MG Oral 07/30/2023 Active Tolnaftate 1 % External 07/30/2023 Acti ve Nystop 515647 UNIT/GM External 07/30/2023 Active Dicyclomine HCl 20 MG Oral 07/30/2023 Active Ezetimibe 10 MG Oral 07/30/2023 Act ken Sodium Fluoride 1.1 % Dental Paste *Reorder from [facility] for eRx and Interaction Alerts* 07/30/2023 Active Norethindrone 0.35 MG Oral 07/30/2023 Active traMADol HCl 50 MG Oral 07/30/2023 Active lamoTRIgine 200 MG 1 tablet Oral twice a day; Duration: 30 days Active Nystatin-Triamcinolon e 735083-1.1 UNIT/GM External 07/30/2023 Active Cholecalciferol 1.25 MG (19754 UT) Oral 07/30/2023 Active Linzess 290 MCG Oral 07/30/2023 Act ken Meclizine HCl 12.5 MG Oral 07/30/2023 Active EMGALITY PEN 120 MG/ML SUBCUTANEOUS PEN INJECTOR *Reorder from [facility] for eRx and Interaction Alerts* 07/30/2023 Active Ondansetron 8 MG Oral 07/30/2023 Ac tive Clotrimazole-Betameth asone 1-0.05 % External 07/30/2023 Active Melatonin 10 mg Oral 07/30/2023 Act ken Immunizations Vaccine Route Administration Date Status Comme nts Influenza, seasonal, injecta ble, preservative free, 3 yrs and above Unknown 12/17/2001 Administered Influenza, unspecified formulation Unknown 08/16/2011 A dministered Novel [id number], preservative free Unknown 05/08/2014 Administered Pfizer Biontech [...] W/U Status Risk Notes Problem Bipolar disorder (77130431) Other bipolar disorder (F31.89) 07/30/19 Active confirmed Problem Bipolar disorder (40089219) Bipolar disorder, unspecified (F31.9) Active confirmed Problem Generalized anxiety disorder (32502236) Generalized anxiety disorder (F41.1) 07/30/19 Active confirmed Problem Posttraumatic stress disorder (92246122) Post-traumatic stress disorder, chronic (F43.12) 07/30/19 Active confirmed Problem Primary insomnia (1100234) Primary insomnia (F51.01) 07/30/19 Active confirmed Problem Drug-induced tardive dystonia (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) Drug induced subacute dyskinesia (G24.01) 07/30/19 Active confirmed Problem Screening for cardiovascular system disease (633674615) Encounter for screening for cardiovascular disorders (Z13.6) Active confirmed Problem Long-term current use of drug therapy (881279695) 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) 07/30/19 24 Active confirmed Problem Psychogenic skin symptoms (270582000) Excoriation (skin-picking) disorder (F42.4) 07/30/19 24 Active confirmed Problem Depression Screening (811031030) Encounter for screening for depression (Z13.31) Active confirmed Problem Bipolar disorder (77385945) Depressed bipolar disorder (F31.9) Active confirmed Problem Dry mouth (00486049) Dry mouth (R68.2) Active confirmed Vital Signs Heart Rate 83 /min 08/18/2024 Respiratory Rate 16 /min 08/18/2024 Height-cm 160.02 cm 08/18/2024 Blood pressure diastolic 62 mm Hg 08/18/2024 Weight-kg 110.68 kg 08/18/2024 Height 63.00 in 08/18/2024 Blood pressure systolic 122 mm Hg 08/18/2024 Weight 244.0 lbs 08/18/2024 BMI 43.22 kg/m2 08/18/2024 Encounters Encounter Location Date Provider Diagnosis [facility] [place] [address] [facility] [address] [address] 10/15/2023 Lis Hemann Post-traumatic stres s disorder, chronic F43.12 ; Excoriation (skin-picking) disorder F42.4 ; Other bipolar disorder F31.89 and Generalized anxiety disorder F41.1 [place] [address] [facility] [address] [address] 10/29/2023 Lis Hemann Post-traumatic stres s disorder, chronic F43.12 ; Excoriation (skin-picking) disorder F42.4 ; Other bipolar disorder F31.89 and Generalized anxiety disorder F41.1 [facility] [place] [address] [facility] [address] [address] 11/12/2023 Candice Machado Generalized anxiety disorder F41.1 ; Depressed bipolar disorder F31.9 ; Primary insomnia F51.01 ; Post-traumatic stress disorder, chronic F43.12 ; Other nursing home (current) drug therapy Z79.899 ; Excoriation (skin-picking) disorder F42.4 and Drug induced subacute dyskinesia G24.01 [facility] [place] [address] [facility] [address] [address] 11/12/2023 Lis Hemann Post-traumatic stres s disorder, chronic F43.12 ; Excoriation (skin-picking) disorder F42.4 and Generalized anxiety disorder F41.[address] [address] 12/03/2023 Lis Hemann Post-traumatic stres s disorder, chronic F43.12 ; Excoriation (skin-picking) disorder F42.4 and Generalized anxiety disorder F41.[address] [address] 01/14/2024 Lis Hemann Post-traumatic stres s disorder, chronic F43.12 ; Bipolar disorder, unspecified F31.9 and Excoriation (skin-picking) disorder F42.[address] [address] 01/21/2024 Lis Hemann Post-traumatic stres s disorder, chronic F43.12 ; Depressed bipolar disorder F31.9 ; Generalized anxiety disorder F41.1 and Excoriation (skin-picking) disorder F42.[address] [address] 02/25/2024 Lis Hemann Post-traumatic stres s disorder, chronic F43.12 ; Depressed bipolar disorder F31.9 ; Generalized anxiety disorder F41.1 and Excoriation (skin-picking) disorder F42.[address] [address] 02/28/2024 Candice Machado Generalized anxiety disorder F41.1 ; Depressed bipolar disorder F31.9 ; Primary insomnia F51.01 ; Post-traumatic stress disorder, chronic F43.12 ; Other nursing home (current) drug therapy Z79.899 ; Excoriation (skin-picking) disorder F42.4 ; Drug induced subacute dyskinesia G24.01 ; Dry mouth R68.2 and Hypertension, unspecified type 401.9 [place] [address] [address] 03/03/2024 Lis Hemann Post-traumatic stres s disorder, chronic F43.12 ; Depressed bipolar disorder F31.9 ; Generalized anxiety disorder F41.1 and Excoriation (skin-picking) disorder F42.[address] [address] 04/07/2024 Lis Hemann Post-traumatic stres s disorder, chronic F43.12 ; Depressed bipolar disorder F31.9 ; Generalized anxiety disorder F41.1 and Excoriation (skin-picking) disorder F42.[address] [address] 05/26/2024 Candice Machado Generalized anxiety disorder F41.1 ; Depressed bipolar disorder F31.9 ; Primary insomnia F51.01 ; Post-traumatic stress disorder, chronic F43.12 ; 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 Z79.899 ; Excoriation (skin-picking) disorder F42.4 ; Drug induced subacute dyskinesia G24.01 and Dry mouth R68.[address] [address] 06/23/2024 Lis Hemann Post-traumatic stres s disorder, chronic F43.12 ; Depressed bipolar disorder F31.9 ; Generalized anxiety disorder F41.1 and Excoriation (skin-picking) disorder F42.[address] [address] 06/30/2024 Lis Hemann Post-traumatic stres s disorder, chronic F43.12 ; Depressed bipolar disorder F31.9 ; Generalized anxiety disorder F41.1 and Excoriation (skin-picking) disorder F42.[address] [address] 07/28/2024 Lis Hemann Post-traumatic stres s disorder, chronic F43.12 ; Generalized anxiety disorder F41.1 and Depressed bipolar disorder F31.[address] [address] 08/18/2024 Candice Machado Encounter for screen ing for depression Z13.31 ; Depressed bipolar disorder F31.9 ; Encounter for screening for cardiovascular disorders Z13.6 ; Generalized anxiety disorder F41.1 ; Primary insomnia F51.01 ; Post-traumatic stress disorder, chronic F43.12 ; 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 [address] 08/18/2024 Lis Hemann Post-traumatic stres s disorder, chronic F43.12 ; Generalized anxiety disorder F41.1 and Depressed bipolar disorder F31.9 [facility] [address] [address] 09/12/2024 Lis Hemann Post-traumatic stres s disorder, chronic F43.12 ; Generalized anxiety disorder F41.1 and Depressed bipolar disorder F31.9 [facility] [address] [address] 10/03/2024 Lis Hemann Post-traumatic stres s disorder, chronic F43.12 ; Generalized anxiety disorder F41.1 and Depressed bipolar disorder F31.9 [facility] [address] [address] 10/07/2024 Lis Hemann Post-traumatic stres s disorder, chronic F43.12 ; Generalized anxiety disorder F41.1 and Depressed bipolar disorder F31.9 [facility] [address] [address] 04/08/2024 Candice Machado Bipolar disorder, unspecified F31.[address] [address] 09/12/2024 Lis Hemann Assessments Encounter Date Diagnosis (ICD Code) Assessment [...] 06/30/2024 Depressed bipolar disorder (ICD-10 - F31.9) 10/15/2023 Post-traumatic stress disorder, chronic (ICD-10 - [...] 100 at bedtime 4. Tardive dyskinesia - [facility] insurance denied and appeal does not want [...] Post-traumatic stress disorder, chronic (ICD-10 - F43.12) 10/03/2024 Post-traumatic stress disorder, chronic (ICD-10 - F43.12) 10/07/2024 Post-traumatic stress disorder, chronic (ICD-10 - F43.12) 10/03/2024 Generalized anxiety disorder (ICD-10 - F41.1) 10/07/2024 Generalized anxiety disorder (ICD-10 - F41.1) 08/18/2024 Generalized anxiety disorder (ICD-10 - F41.1) [...] AIMS= 11 12/26/21 5. Long-term drug therapy 10/29/2023 Other bipolar disorder (ICD-10 - F31.89) 10/15/2023 Other bipolar disorder (ICD-10 - F31.89) [...] movement 06/08 educated on medication AIMS= 12/26/21 5 dry mouth educated on dry [...] 08/18/2024 Depressed bipolar disorder (ICD-10 - F31.9) 10/03/2024 Depressed bipolar disorder (ICD-10 - F31.9) 10/07/2024 Depressed bipolar disorder (ICD-10 - F31.9) 08/18/2024 Primary insomnia (ICD-10 - F51.01) Insomnia: [...] mouth . 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 Long-term drug therapy 05/26/2024 Other nursing home (current) drug therapy (ICD-10 - Z79.899) Medication [...] mouth . Long-term drug therapy 02/28/2024 Other nursing home (current) drug therapy (ICD-10 - Z79.899) Medication [...] medication AIMS= 12/26/21 5. Long-term drug therapy 08/18/2024 Post-traumatic [...] mouth . 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 [...] movement 06/08 educated on medication AIMS= 12/26/21 5 dry mouth educated on dry [...] Of Treatment Next Appt Details Provider Name:Lis Garciadavid, 10/22/2024 09:00:00 AM, [address], [place] [address], [place], [address], Provider Name:Lis Perez Marcos, 11/04/2024 09:00:00 AM, [address], [place], [address], Provider Name:Lis Garciadavid, 11/18/2024 10:00:00 AM, [address], [place], [address], Provider Name:Candice Machado , 11/18/2024 11:45:00 AM, [address], [facility] [address], [place], [address], Provider Name:Lis Garciadavid, 12/04/2024 09:00:00 AM, [address], [facility] [address], [place], [address], Insurance Providers Payer Name Payer Address Payer Phone Subscriber Number Group Number Insured Name Patient Relationship to Insured Coverage Start Date Coverage End Date [facility] Ppo [address] [place] [address] [id number] FREDDY LIN Self - patient is the insured Medicaid-I l Medicaid [address] [address] [place] [address] [id number] FREDDY LIN Self - patient is the insured Medical (General) History Medical History History ICD Code Problems: Chronic post-traumatic stress disorder Cortical blindness Generalized anxiety disorder History of eating disorder Long-term drug therapy Mild bipolar disorder Movement disorder Overweight Primary insomnia Repetitive self-excoriation Severe depressed bipolar I disorder with psychotic features Suicidal thoughts Tardive dyskinesia ,
== END 2024-10-08 08:25 | disposition home or self-care (01) ==
LOC: ANHLAB 08:28
PROVIDERS: PCP Internal Medicine; Visit Provider Urology
DX: R39.9 Unspecified symptoms and signs involving the genitourinary system (principal)
CPT/HCPCS: 87086

== ENCOUNTER 2024-10-14 09:51 | Outpatient (NON) | payer BC, MEDICAID, SELFPAY ==
--- OUTSIDE RECORDS SUMMARY | 2024-10-14 10:01 | XMS_ITS | Clinical Summary ---
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 Assessment & Plan (05/17/2020 2:05 PM SINGLE FOLD MACHINE OPERATOR): Patient had adverse effects with propranolol prescribed [...] similar to what she has had in [facility] but she still having them the majority [...] on her headache, but I did child welfare counselor her that potentially it could exacerbate [...] pancreatitis or GERD. She will see her blood bank credit clerk in January. 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
--- OUTSIDE RECORDS SUMMARY | 2024-10-14 10:01 | XMS_ITS | Clinical Summary ---
Author Organization [facility] Address [address], [address] [address] Phone Care Team Providers Care Contract Recruiter Name Role Phone Mono Magaña DO Primary Care Provider [phone] Allergies Active Allergy Reactions Criticality Noted Date [...] as directed. Active nystatin-triamcin olone (MYCOLOG II) 854100-4.1 UNIT/GM-% Cream Apply 3 times daily. Affected [...] MG Tablet Take by mouth. Active Pancrelipase, Xwc-Sguy-Cnct, [address] Particles Take 2 Caps [...] ID:Not on file Type:Not on file Address: [address] Care Teams Contract Recruiter Relationship Specialty Start Date End Date Mono Magaña DO [address] [facility] [address] [place] [address] PCP - General Internal Medicine 10/24/18
--- OUTSIDE RECORDS SUMMARY | 2024-10-14 10:01 | XMS_ITS | Referral Summary ---
Author Organization [facility] [address] Address [address] [place] [address] Care Team Providers Care Wood Grinder Operator Name Role Phone Luc Munoz Primary Care Provider Encounters Date Type Department Care Team Description 09/03/2024 Telephone [facility] Neurology [address] [place] [address] [place] [address] Lynn Balderrama NP 08/25/2024 11:00 AM CDT Office Visit [facility] Neurology [address] [place] [address] [place] [address] Lynn Balderrama, COMPUTER SCIENCE TEACHER Migraine without aura, not intractable, without status [...] 2 (two) times a day Active vit C,I-Gd-nzqwh-lutei n-zeaxan [id number] il-kuiw-dy-mg capsule Take by mouth 2 (two) times [...] day 60 tablet 11 1 Active carboxymethyl-gly- izso54-GA 0.5-1-0.5 % dropperette Administer into affected eye(s) [...] 05/17/2020 Assessment & Plan (05/17/2020 2:06 PM FAGOTING MACHINE 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 Assessment & Plan (05/17/2020 2:05 PM FAGOTING MACHINE OPERATOR): Patient had adverse effects with [...] similar to what she has had in [facility] but she still having them the majority [...] have on her headache, but I did funeral pre arrangement counselor her that potentially it could exacerbate [...] or GERD. She will see her clinical applications specialist in January. 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
--- OUTSIDE RECORDS SUMMARY | 2024-10-14 10:01 | XMS_ITS | Clinical Summary ---
Author Organization [facility] Address [address] [place] [address] Care Team Providers Care Shipping & Receiving Lead Name Role Phone Unavailable Primary Care Provider [...]
--- OUTSIDE RECORDS SUMMARY | 2024-10-14 10:01 | XMS_ITS | Clinical Summary ---
Author Organization [facility] Address [address] [facility] [place] [address] Care Team Providers Care Project Facilitator Name Role Phone Lucio Nicole MD Primary Care Provider [phone] Cyrus Bailey MD Unavailable [phone] Source Comments [facility],non-owned Affiliates and Associated Physician Practices is amultiple site organization consisting of ambulatory clinics and hospital sitesin [place], [place], [place]. This disclosure is being madepursuant to the Care Everywhere program and may not contain all information available regarding this patient. Last updated 17.[facility] Allergies Active Allergy Reactions Criticality Noted [...] 4 times daily. 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 Not on file Not [...] LABORATORY Chloride 107 98 - 107 mmol/L [facility] BUN 11 7 - 17 mg/dl [facility] Creatinine 0.49(L) 0.52 - 1.04 mg/dl [facility] Glucose 95 65 - 105 mg/dl [facility] Calcium 9.6 8.4 - 10.2 mg/dl [facility] Alkaline Phosphatase 104 38 - 126 U/L [facility] AST 39 8 - 39 U/L [facility] Bilirubin Total 0.4 0.2 - 1.3 mg/dl [facility] Protein Total 6.9 6.3 - 8.2 gm/dl [facility] Albumin 4.1 3.9 - 5.0 gm/dl [facility] CO2 25 22 - 30 mmol/L [facility] ALT 17 9 - 52 U/L [facility] eGFR by MDRD 140 >60 mL/min/1.7 3m2 [facility] Comment eGFR [facility] Comment: The eGFR does not apply to patients who are younger than 18 or older than 70. BLOOD SPECIMEN / Unknown 08/05/2010 9:28 PM CDT 08/05/2010 9:39 PM CDT Sean Bolton DO LAB - CHEMISTRY ORDERABLES Fin al Result Performing Organization Address City/State/[facility] Co de Phone Number [facility] [address] [place] [address] from Last 3 Months or Most Recently Relevant to Health Maintenance Insurance [facility] MEDICAID - OUT OF STATE [facility] [place] - [place] [facility] [place] [place] Advance Directives * Full Code (Latest Code Status on File) Date Activated Date Inactivated Comments 08/06/2010 2:02 AM 08/13/2010 4:27 AM Care Teams Project Facilitator Relationship Specialty Start Date End Date Lucio Nicole MD [address] [place] [phone] PCP - General 08/05/10 Cyrus Bailey MD [address] [place] [address] Referring Physician Orthopedic Surgery 06/09/14
--- OUTSIDE RECORDS SUMMARY | 2024-10-14 10:02 | XMS_ITS | Patient Health Record ---
Author Organization [facility] [place] [facility] [employer] [facility] Address [address] [place] [address] Care Team Providers Care Livestock Farmers Name Role Phone Luc Munoz DO Primary Care Provider UnavailCandice Chirinos Unavailable [phone] Lis Rodríguez Unavailable [phone] Allergies Allergen (clinical drug ingredient) Drug/Non Drug [...] Oxazepam (BZO) P 0 - 300 ng/ml 5-gsmpakixzm-6,6-wveaybop-7,3-diphenylpyrrolidine (GHANSHYAM P) N 0 - 300 ng/ml Methamphetamine (MET) N 0 - 1000 ng/ml Methylenedioxymethamphetamine (MDMA) N 0 - 500 ng/ml Morphine (MOP 300/BCC3733) N 0 - 300 ng/ml Methadone (MTD) [...] metroNIDAZOLE 500 MG Oral 07/30/2023 Active Ipratropium [place] 0.06 % Nasal 07/30/2023 Active Calcitriol 0.25 [...] Propionate Diskus 50 MCG/ACT Inhalation *Reorder from [facility] for eRx and Interaction Alerts* 07/30/2023 Active Nurtec 75 MG Oral *Reorder from [facility] for eRx and Interaction Alerts* 07/30/2023 Active Terbinafine HCl 250 MG Oral 07/30/2023 Active Jublia 10 % External 07/30/2023 Active Zenpep 10,000-32,000 -42,000 unit ORAL *Pick strength-form from [facility] for eRX* 07/30/2023 Active Ergocalciferol 1.25 MG (35693 UT) Oral 07/30/2023 Active Premarin 1.25 MG Oral 07/30/2023 Ac tive Trimethoprim 100 MG Oral 07/30/2023 Active Tolnaftate 1 % External 07/30/2023 Acti ve Nystop 673725 UNIT/GM External 07/30/2023 Active Dicyclomine HCl 20 MG Oral 07/30/2023 Active Ezetimibe 10 MG Oral 07/30/2023 Act ken Sodium Fluoride 1.1 % Dental Paste *Reorder from [facility] for eRx and Interaction Alerts* 07/30/2023 Active Norethindrone 0.35 MG Oral 07/30/2023 Active traMADol HCl 50 MG Oral 07/30/2023 Active lamoTRIgine 200 MG 1 tablet Oral twice a day; Duration: 30 days Active Nystatin-Triamcinolon e 515467-0.1 UNIT/GM External 07/30/2023 Active Cholecalciferol 1.25 MG (19676 UT) Oral 07/30/2023 Active Linzess 290 MCG Oral 07/30/2023 Act ken Meclizine HCl 12.5 MG Oral 07/30/2023 Active EMGALITY PEN 120 MG/ML SUBCUTANEOUS PEN INJECTOR *Reorder from [facility] for eRx and Interaction Alerts* 07/30/2023 Active Ondansetron 8 MG Oral 07/30/2023 Ac tive Clotrimazole-Betameth asone 1-0.05 % External 07/30/2023 Active Melatonin 10 mg Oral 07/30/2023 Act ken Immunizations Vaccine Route Administration Date Status Comme nts Influenza, seasonal, injecta ble, preservative free, 3 yrs and above Unknown 12/17/2001 Administered Influenza, unspecified formulation Unknown 08/16/2011 A dministered Novel Bhdftliza-[id number], preservative free Unknown 05/08/2014 Administered Pfizer Biontech [...] W/U Status Risk Notes Problem Bipolar disorder (19580859) Other bipolar disorder (F31.89) 07/30/19 Active confirmed Problem Bipolar disorder (69924046) Bipolar disorder, unspecified (F31.9) Active confirmed Problem Generalized anxiety disorder (89379997) Generalized anxiety disorder (F41.1) 07/30/19 Active confirmed Problem Posttraumatic stress disorder (05163634) Post-traumatic stress disorder, chronic (F43.12) 07/30/19 Active confirmed Problem Primary insomnia (5470292) Primary insomnia (F51.01) 07/30/19 Active confirmed Problem Drug-induced tardive dystonia (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) Drug induced subacute dyskinesia (G24.01) 07/30/19 Active confirmed Problem Screening for cardiovascular system disease (127257836) Encounter for screening for cardiovascular disorders (Z13.6) Active confirmed Problem Long-term current use of drug therapy (503727453) Other terminal operations manager (current) drug therapy (Z79.899) 07/30/19 24 Active confirmed Problem Psychogenic skin symptoms (005149529) Excoriation (skin-picking) disorder (F42.4) 07/30/19 24 Active confirmed Problem Depression Screening (033170245) Encounter for screening for depression (Z13.31) Active confirmed Problem Bipolar disorder (53750664) Depressed bipolar disorder (F31.9) Active confirmed Problem Dry mouth (82393292) Dry mouth (R68.2) Active confirmed Vital Signs Heart Rate 83 /min 08/18/2024 Respiratory Rate 16 /min 08/18/2024 Height-cm 160.02 cm 08/18/2024 Blood pressure diastolic 62 mm Hg 08/18/2024 Weight-kg 110.68 kg 08/18/2024 Height 63.00 in 08/18/2024 Blood pressure systolic 122 mm Hg 08/18/2024 Weight 244.0 lbs 08/18/2024 BMI 43.22 kg/m2 08/18/2024 Encounters Encounter Location Date Provider Diagnosis [facility] [place] [employer] [place] [address] [facility] [address] [address] 10/15/2023 Lis Hemann Post-traumatic stres s disorder, chronic F43.12 ; Excoriation (skin-picking) disorder F42.4 ; Other bipolar disorder F31.89 and Generalized anxiety disorder F41.1 [place] [address] [facility] [address] [address] 10/29/2023 Lis Hemann Post-traumatic stres s disorder, chronic F43.12 ; Excoriation (skin-picking) disorder F42.4 ; Other bipolar disorder F31.89 and Generalized anxiety disorder F41.1 [facility] [place] [employer] [place] [address] [facility] [address] [address] 11/12/2023 Candice Machado Generalized anxiety disorder F41.1 ; Depressed bipolar disorder F31.9 ; Primary insomnia F51.01 ; Post-traumatic stress disorder, chronic F43.12 ; Other jail (current) drug therapy Z79.899 ; Excoriation (skin-picking) disorder F42.4 and Drug induced subacute dyskinesia G24.01 [facility] [place] [employer] [place] [address] [facility] [address] [address] 11/12/2023 Lis Hemann Post-traumatic stres s disorder, chronic F43.12 ; Excoriation (skin-picking) disorder F42.4 and Generalized anxiety disorder F41.[address] [address] 12/03/2023 Lis Hemann Post-traumatic stres s disorder, chronic F43.12 ; Excoriation (skin-picking) disorder F42.4 and Generalized anxiety disorder F41.[address] [address] 01/14/2024 Lis Hemann Post-traumatic stres s disorder, chronic F43.12 ; Bipolar disorder, unspecified F31.9 and Excoriation (skin-picking) disorder F42.[address] [address] 01/21/2024 Lis Hemann Post-traumatic stres s disorder, chronic F43.12 ; Depressed bipolar disorder F31.9 ; Generalized anxiety disorder F41.1 and Excoriation (skin-picking) disorder F42.[address] [address] 02/25/2024 Lis Hemann Post-traumatic stres s disorder, chronic F43.12 ; Depressed bipolar disorder F31.9 ; Generalized anxiety disorder F41.1 and Excoriation (skin-picking) disorder F42.[address] [address] 02/28/2024 Candice Machado Generalized anxiety disorder F41.1 ; Depressed bipolar disorder F31.9 ; Primary insomnia F51.01 ; Post-traumatic stress disorder, chronic F43.12 ; Other jail (current) drug therapy Z79.899 ; Excoriation (skin-picking) disorder F42.4 ; Drug induced subacute dyskinesia G24.01 ; Dry mouth R68.2 and Hypertension, unspecified type 401.9 [place] [address] [address] 03/03/2024 Lis Hemann Post-traumatic stres s disorder, chronic F43.12 ; Depressed bipolar disorder F31.9 ; Generalized anxiety disorder F41.1 and Excoriation (skin-picking) disorder F42.[address] [address] 04/07/2024 Lis Hemann Post-traumatic stres s disorder, chronic F43.12 ; Depressed bipolar disorder F31.9 ; Generalized anxiety disorder F41.1 and Excoriation (skin-picking) disorder F42.[address] [address] 05/26/2024 Candice Machado Generalized anxiety disorder F41.1 ; Depressed bipolar disorder F31.9 ; Primary insomnia F51.01 ; Post-traumatic stress disorder, chronic F43.12 ; Other terminal operations manager (current) drug therapy Z79.899 ; Excoriation (skin-picking) disorder F42.4 ; Drug induced subacute dyskinesia G24.01 and Dry mouth R68.[address] [address] 06/23/2024 Lis Hemann Post-traumatic stres s disorder, chronic F43.12 ; Depressed bipolar disorder F31.9 ; Generalized anxiety disorder F41.1 and Excoriation (skin-picking) disorder F42.[address] [address] 06/30/2024 Lis Hemann Post-traumatic stres s disorder, chronic F43.12 ; Depressed bipolar disorder F31.9 ; Generalized anxiety disorder F41.1 and Excoriation (skin-picking) disorder F42.[address] [address] 07/28/2024 Lis Hemann Post-traumatic stres s disorder, chronic F43.12 ; Generalized anxiety disorder F41.1 and Depressed bipolar disorder F31.[address] [address] 08/18/2024 Candice Machado Encounter for screen ing for depression Z13.31 ; Depressed bipolar disorder F31.9 ; Encounter for screening for cardiovascular disorders Z13.6 ; Generalized anxiety disorder F41.1 ; Primary insomnia F51.01 ; Post-traumatic stress disorder, chronic F43.12 ; Other terminal operations manager (current) drug therapy Z79.899 ; Excoriation (skin-picking) disorder F42.4 ; Drug induced subacute dyskinesia G24.01 and Dry mouth R68.2 [facility] [employer] [address] [address] 08/18/2024 Lis Hemann Post-traumatic stres s disorder, chronic F43.12 ; Generalized anxiety disorder F41.1 and Depressed bipolar disorder F31.9 [facility] [place] [employer] [address] 09/12/2024 Lis Hemann Post-traumatic stres s disorder, chronic F43.12 ; Generalized anxiety disorder F41.1 and Depressed bipolar disorder F31.9 [facility] [employer] [address] [address] 10/03/2024 Lis Hemann Post-traumatic stres s disorder, chronic F43.12 ; Generalized anxiety disorder F41.1 and Depressed bipolar disorder F31.9 [facility] [employer] [address] 10/07/2024 Lis Hemann Post-traumatic stres s disorder, chronic F43.12 ; Generalized anxiety disorder F41.1 and Depressed bipolar disorder F31.9 [facility] [place] [employer] [address] 04/08/2024 Candice Machado Bipolar disorder, unspecified F31.[address] [address] 09/12/2024 Lis Hemann Assessments Encounter Date Diagnosis [...] 04/07/2024 Depressed bipolar disorder (ICD-10 - F31.9) 07/28/2024 Post-traumatic stress disorder, chronic (ICD-10 - F43.12) 08/18/2024 Post-traumatic stress disorder, chronic (ICD-10 - [...] dry mouth . Long-term drug therapy 06/23/2024 Depressed bipolar disorder (ICD-10 - F31.9) 10/03/2024 Post-traumatic stress disorder, chronic (ICD-10 - [...] and dry mouth . Long-term drug therapy 06/30/2024 Post-traumatic stress disorder, chronic (ICD-10 - F43.12) 06/30/2024 Depressed bipolar disorder (ICD-10 - F31.9) 06/23/2024 Post-traumatic stress disorder, chronic (ICD-10 - F43.12) 06/30/2024 Generalized anxiety disorder (ICD-10 - F41.1) 06/23/2024 Generalized anxiety disorder (ICD-10 - F41.1) 08/18/2024 [...] and dry mouth . Long-term drug therapy 10/03/2024 Generalized anxiety disorder (ICD-10 - F41.1) 10/07/2024 Generalized anxiety disorder (ICD-10 - F41.1) 02/25/2024 Generalized anxiety disorder (ICD-10 - F41.1) [...] 10/15/2023 Other bipolar disorder (ICD-10 - F31.89) 08/18/2024 Generalized anxiety disorder (ICD-10 - F41.1) 09/12/2024 Generalized anxiety disorder (ICD-10 - F41.1) 07/28/2024 Generalized anxiety disorder (ICD-10 - F41.1) 05/26/2024 [...] 08/18/2024 Depressed bipolar disorder (ICD-10 - F31.9) 07/28/2024 Depressed bipolar disorder (ICD-10 - F31.9) 10/15/2023 Generalized anxiety disorder (ICD-10 - F41.1) [...] AIMS= 11 12/26/21 5. Long-term drug therapy 12/03/2023 Generalized [...] 02/25/2024 Excoriation (skin-picking) disorder (ICD-10 - F42.4) 10/03/2024 Depressed bipolar disorder (ICD-10 - F31.9) 10/07/2024 Depressed bipolar disorder (ICD-10 - F31.9) 06/30/2024 Excoriation (skin-picking) disorder (ICD-10 - F42.4) 06/23/2024 Excoriation (skin-picking) disorder (ICD-10 - F42.4) 08/18/2024 Generalized anxiety disorder (ICD-10 - F41.1) [...] dry mouth . Long-term drug therapy 08/18/2024 Primary insomnia (ICD-10 - F51.01) Insomnia: [...] mouth . Long-term drug therapy 11/12/2023 Other terminal operations manager (current) drug therapy (ICD-10 - Z79.899) Medication [...] 12/26/21 5. Long-term drug therapy 05/26/2024 Other jail (current) drug therapy (ICD-10 - Z79.899) Medication [...] mouth . 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 Long-term drug therapy 08/18/2024 Other jail (current) drug therapy (ICD-10 - Z79.899) Medication [...] photosensitivity.Seriou s reactions include: Rash, severe; Christina Ecm syndrome; toxic epidermal necrosis;injury edema, hypersensitivity reactions. [...] photosensitivity.Seriou s reactions include: Rash, severe; Christina Ecm syndrome; toxic epidermal necrosis;injury edema, hypersensitivity reactions. [...] 10/22/2024 09:00:00 AM, [address], [place] [address], [place], [address], Provider Name:Lis Perez Marcos, 11/04/2024 09:00:00 AM, [address], [place], [address], Provider Name:Lis Garciadavid, 11/18/2024 10:00:00 AM, [address], [place], [address], Provider Name:Candice Machado , 11/18/2024 11:45:00 AM, [address], [facility] [address], [place], [address], Provider Name:Lis Garciadavid, 12/04/2024 09:00:00 AM, [address], [facility] [address], [place], [address], Insurance Providers Payer Name Payer Address Payer Phone Subscriber Number Group Number Insured Name Patient Relationship to Insured Coverage Start Date Coverage End Date [facility] Ppo [address] [place] [address] [id number] FREDDY LIN Self - patient is the insured Medicaid-[place] l Medicaid [address] [address] [place] [address] [id number] FREDDY LIN Self - patient is the insured Medical (General) History Medical History History ICD Code Problems: Chronic post-traumatic stress disorder Cortical blindness Generalized anxiety disorder History of eating disorder Long-term drug therapy Mild bipolar disorder Movement disorder Overweight Primary insomnia Repetitive self-excoriation Severe depressed bipolar I disorder with psychotic features Suicidal thoughts Tardive dyskinesia ,
[2024-10-15 12:08] LABS: Calcium, Urine 11.6 mg/dL (Not Estab.)
== END 2024-10-14 09:52 | disposition home or self-care (01) ==
LOC: ANHLAB 09:53
PROVIDERS: PCP Internal Medicine; Visit Provider Internal Medicine Endocrinology, Diabetes & Metabolism
DX: R79.89 Other specified abnormal findings of blood chemistry (principal); E21.3 Hyperparathyroidism, unspecified; M85.80 Other specified disorders of bone density and structure, unspecified site
CPT/HCPCS: 81050; 82340; 82570

== ENCOUNTER 2024-12-18 11:33 | Outpatient (CLI) | payer BC, MEDICAID, SELFPAY ==
--- OUTSIDE RECORDS SUMMARY | 2024-12-18 11:55 | XMS_ITS | Clinical Summary ---
Author Organization [facility] Address [address] [place] [address] Care Team Providers Care Correction Officer Reformatory Name Role Phone Lucio Nicole MD Primary Care Provider [phone] Cyrus Bailey MD Unavailable [phone] Source Comments [facility],non-owned Affiliates and Associated Physician Practices is amultiple site organization consisting of ambulatory clinics and hospital sitesin [place], [place], [place] and [place]. This disclosure is being madepursuant to the Care Everywhere program and may not contain all information available regarding this patient. Last updated 17.[facility] Allergies Active Allergy Reactions Criticality Noted [...] 4 times daily. 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 BUN 11 7 - 17 mg/dl [facility] Creatinine 0.49(L) 0.52 - 1.04 mg/dl [facility] Glucose 95 65 - 105 mg/dl [facility] Calcium 9.6 8.4 - 10.2 mg/dl [facility] Alkaline Phosphatase 104 38 - 126 U/L [facility] AST 39 8 - 39 U/L [facility] Bilirubin Total 0.4 0.2 - 1.3 mg/dl [facility] Protein Total 6.9 6.3 - 8.2 gm/dl [facility] Albumin 4.1 3.9 - 5.0 gm/dl [facility] CO2 25 22 - 30 mmol/L [facility] ALT 17 9 - 52 U/L [facility] eGFR by MDRD 140 >60 mL/min/1.7 3m2 [facility] Comment eGFR [facility] Comment: The eGFR does not apply to patients who are younger than 18 or older than 70. BLOOD SPECIMEN / Unknown 08/05/2010 9:28 PM CDT 08/05/2010 9:39 PM CDT Sean Bolton DO LAB - CHEMISTRY ORDERABLES Fin al Result Performing Organization Address City/State/[facility] Co de Phone Number [facility] [address] [place] [address] from Last 3 Months or Most Recently Relevant to Health Maintenance Insurance [facility] - OUT OF STATE [facility] [place] [place] [facility] MEDICAID - [place] Advance Directives * Full Code (Latest Code Status on File) Date Activated Date Inactivated Comments 08/06/2010 2:02 AM 08/13/2010 4:27 AM Care Teams Correction Officer Reformatory Relationship Specialty Start Date End Date Lucio Nicole MD [address] [place] [address] PCP - General 08/05/10 Cyrus Bailey MD [address] [place] [address] Referring Physician Orthopedic Surgery 06/09/14
--- OUTSIDE RECORDS SUMMARY | 2024-12-18 11:55 | XMS_ITS | Clinical Summary ---
Author Organization [facility] Address [address] [place] [address] Care Team Providers Care Family Law Paralegal Name Role Phone Unavailable Primary Care Provider [...] Vaccines (1 of 2) 2020 COVID-19 Vaccine (1 - 2023-2 5 season) 2024 Meningococcal B Vaccine Aged Out No l [...]
--- OUTSIDE RECORDS SUMMARY | 2024-12-18 11:55 | XMS_ITS | Clinical Summary ---
Author Organization [facility] [address] Address [address] [place] [address] Care Team Providers Care Wire Winder Name Role Phone Luc Munoz Primary Care Provider [phone] Allergies Active Allergy Reactions Criticality Noted Date [...] 2 (two) times a day Active vit C,W-Lv-slmjc-lutei n-zeaxan 588-131-37-1 lr-lavn-hh-mg capsule Take by mouth 2 (two) times [...] day 60 tablet 11 1 Active carboxymethyl-gly- kydf51-YB 0.5-1-0.5 % dropperette Administer into affected eye(s) [...] 05/17/2020 Assessment & Plan (05/17/2020 2:06 PM BRAZER ASSEMBLER): Patient has a history of episodic dizziness [...] year. Assessment & Plan (05/17/2020 2:05 PM BRAZER ASSEMBLER): Patient had adverse effects with propranolol prescribed [...] similar to what she has had in [facility] but she still having them the majority [...] have on her headache, but I did phone counselor her that potentially it could exacerbate [...] pancreatitis or GERD. She will see her gis professor in January. Assessment & Plan (10/09/2016 1:03 [...] Encounters Date Type Department Care Team Description 12/04/2024 Telephone [facility] Neurology [address] [place] [phone] Natacha Duran NP Prior Auth (Emgality 120MG) from Last 3 Months Surgical History Surgery Date Site/Laterality Comments PEG TUBE PLACEMENT CORONARY ANGIOPLASTY Medical History Medical History Date Comments Thyroid disease Hyperlipidemia Diabetes mellitus Obesity Sinus disorder Acid indigestion Stroke (HCC) Blind COPD (chronic obstructive pulmonary disease) Anxiety Bladder infection Pulmonary embolus (HCC) Asthma Bipolar disorder Eating disorder Family History * Patient is [...] on file Legal Sex Female 7:41 PM BRAZER ASSEMBLER Gender Identity Not on file Sexual Orientation [...] [place] Care Teams Wire Winder Relationship Specialty Start Date End Date Luc Munoz DO PCP - General Internal Medicine 08/25/24
--- OUTSIDE RECORDS SUMMARY | 2024-12-18 11:55 | XMS_ITS | Clinical Summary ---
Author Organization [facility] Address [address], [address] [address] Phone Care Team Providers Care Video Engineer Name Role Phone Mono Magaña DO [...] as directed. Active nystatin-triamcin olone (MYCOLOG II) 047126-3.1 UNIT/GM-% Cream Apply 3 times daily. Affected [...] MG Tablet Take by mouth. Active Pancrelipase, Hod-Agkm-Vbgt, [address]-[address] Particles Take 2 Caps [...] promethazine (PHENERGAN) 12.5 MG TabletIndications :Idiopathic chronic pancreatitis,April roparesis TAKE 1 TABLET BY MOUTH FOUR TIMES [...] sucralfate (CARAFATE) 1 GM TabletIndications :Idiopathic chronic pancreatitis,April roparesis,Gastroe sophageal reflux disease without esophagitis TAKE 1 TABLET [...] 2020 Zoster Immunization (1 of 2) 2020 Colonoscopy 08/04/2024 08/04/2014 Colorectal Cancer Screening 08/04/2024 Influenza Immunization (#1) 2024 02/2 , 08/16/2011, 12/17/2001 SARS-COV-2 Immunization ( season) 2024 02/27/2021, 06/22/2020, 06/01/2020 Respiratory Syncytial Virus (RSV) Immunization (Adult) (1 [...] Recently Relevant to Health Maintenance Results * HM COLONOSCOPY (08/04/2014) Lucio Nicole MD PROCEDURE/MINOR SURGICAL ORDER CONOR Final Result from Last 3 Months or Most Recently Relevant to Health Maintenance Insurance MEDICAID [place] Care Teams Video Engineer Relationship Specialty Start Date End Date Mono Magaña DO [address] [place] [address] PCP - General Internal Medicine 10/24/18
--- OUTSIDE RECORDS SUMMARY | 2024-12-18 11:56 | XMS_ITS | Encounter Summary ---
Author Organization [facility] Address [address] [place] [address] Care Team Providers Care Rehabilitation Physician Name Role Phone Luc Munoz DO Primary Care Provider [phone] Reason for Visit * Reason Onset Date Comments Prior Auth 12/04/2024 Emgality 120MG Encounter Details Date Type Department Care Team (Late st Contact Info) Description 12/04/2024 Telephone [facility] Neurology [address] [place] [phone] Natacha Duran, GARRY [address] [place] [id number] Prior Auth (Emgality 120MG) Social History Tobacco Use Types Packs/Day Years Used Date Smoking Tobacco: Never Smokeless Tobacco: Never Alcohol Use Standard Drinks/Week Comments No 0 (1 standard drink = 0.6 oz pur e alcohol) Comments Unknown Sex and Gender Information Value Date Recorded Sex Assigned at Not on file 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 Please allow additional time for the final decision to be made and added to the patient's account. * Telephone Encounter - Bhavana Ortega MA - 12/04/2024 9:56 AM CDT PA submitted for Emgality 120MG through cover my meds. Waiting on determination documented in this encounter Plan of Treatment Not on file documented as of this encounter Visit Diagnoses Not on filedocumented in this encounter Care Teams Rehabilitation Physician Relationship Specialty Start Date End Date Luc Munoz DO PCP - General Internal Medicine 08/25/24 documented as of this encounter
--- OUTSIDE RECORDS SUMMARY | 2024-12-18 11:56 | XMS_ITS | Patient Health Record ---
Author Organization [facility] [employer] [facility] Address [address] [place] [address] Care Team Providers Care Hoisting Machine Operator Name Role Phone Luc Munoz DO Primary Care Provider Candice Chanel Unavailable [phone] Lis Rodríguez Unavailable [phone] Allergies Allergen (clinical drug ingredient) Drug/Non Drug Allergy documented on EMR Reaction Allergy Type Onset Date Status Iodinated contrast media (substance) IODINATED CONTRAST MEDIA (uncoded) Unknown Allergy 07/30/2023 Active sulfamethoxazole / trimethoprim Bactrim Unknown Drug Allergy 07/30/2023 Active meperidine Demerol Unknown Drug Allergy 07/30/2023 Activ e Rocephin Unknown Drug Allergy 07/30/2023 Active Reason For Referral No Information Medications Medication SIG (Take, Route, Frequency, Duration) Notes Start Date End Date Status Mupirocin 2% Ointment External 07/30/2023 Active Advair Diskus 250-50 MCG/DOSE Aerosol Powder Breath Activated Inhalation 07/30/2023 Active Premarin 1.25 MG Tablet Oral 07/30/2023 Active Terbinafine HCl 250 MG Tablet Oral 07/30/2023 Active Jublia 10 % Solution External 07/30/2023 Active Fluticasone Propionate Diskus 50 MCG/ACT Aerosol Powder Breath Activated Inhalation *Reorder from [facility] for eRx and Interaction Alerts* 07/30/2023 Active Nurtec 75 MG Tablet Disintegrating Oral *Reorder from [facility] for eRx and Interaction Alerts* 07/30/2023 Active Diclofenac Sodium 0.1 % Solution Ophthalmic 07/30/2023 Active Zenpep 10,000-32,000 -42,000 unit CAPSULE,DELAYED RELEASE (ENTERIC COATED) ORAL *Pick strength-form from [facility] for eRX* 07/30/2023 Active Ergocalciferol 1.25 MG (40157 UT) Capsule Oral 07/30/2023 Active Clotrimazole-Betameth asone 1-0.05 % Cream External 07/30/2023 Active Trimethoprim 100 MG Tablet Oral 07/30/2023 Active Sodium Fluoride 1.1 % Dental Paste *Reorder from [facility] for eRx and Interaction Alerts* 07/30/2023 Active lamoTRIgine 200 MG Tablet 1 tablet Oral twice a day; Duration: 30 days Active Norethindrone 0.35 MG Tablet Oral 07/30/2023 Active Nystatin-Triamcinolon e 129848-9.1 UNIT/GM Cream External 07/30/2023 Active Nystop 700801 UNIT/GM Powder External 07/30/2023 Active Ezetimibe 10 MG Tablet Oral 07/30/2023 Active Meclizine HCl 12.5 MG Tablet Oral 07/30/2023 Active EMGALITY PEN 120 MG/ML SUBCUTANEOUS PEN INJECTOR *Reorder from [facility] for eRx and Interaction Alerts* 07/30/2023 Active traMADol HCl 50 MG Tablet Oral 07/30/2023 Active Cholecalciferol 1.25 MG (34750 UT) Capsule Oral 07/30/2023 Active Linzess 290 MCG Capsule Oral 07/30/2023 Active Tolnaftate 1 % Powder External 07/30/2023 Active Dicyclomine HCl 20 MG Tablet Oral 07/30/2023 Active Ondansetron 8 MG Tablet Disintegrating Oral 07/30/2023 Active Melatonin 10 mg Tablet Oral 07/30/2023 Active Albuterol Sulfate (2.5 MG/3ML) 0.083% Nebulization Solution Inhalation 07/30/2023 Active Acyclovir 800 MG Tablet Oral 07/30/2023 Active Clobetasol Propionate 0.05% Cream External 07/30/2023 Active lamoTRIgine 200 MG Tablet 1 tablet Oral twice a day; Duration: 30 days 11/18/2024 Active Phenazopyridine HCl 100 MG Tablet Oral 07/30/2023 Active Metoclopramide HCl 5 MG/5ML Solution Oral 07/30/2023 Active Azelastine HCl 0.05 % Solution Ophthalmic 07/30/2023 Active Sertraline HCl 50 MG Tablet 1 tablet Oral Once a day; Duration: 30 days 11/18/2024 Active Trulance 3 MG Tablet Oral 07/30/2023 Active Sertraline HCl 100 MG Tablet 1 tablet Oral Once a day; Duration: 30 days 11/18/2024 Active Bepreve 1.5 % Solution Ophthalmic 07/30/2023 Active clonazePAM 0.5 MG Tablet 1 tablet Oral four times a day; Duration: 30 days 11/18/2024 Active Sucralfate 1 GM Tablet Oral 07/30/2023 Active Venlafaxine HCl ER 75 MG Capsule Extended Release 24 Hour 1 capsule in the morning Oral Once a day; Duration: 30 days 11/18/2024 Active traZODone HCl 100 MG Tablet 1 tablet Oral bedtime; Duration: 30 days Active Benzonatate 200 MG Capsule Oral 07/30/2023 Not-Taking Tamsulosin HCl 0.4 MG Capsule Oral 07/30/2023 Active traZODone HCl 100 MG Tablet 1 tablet Oral bedtime; Duration: 30 days 11/18/2024 Active Vraylar 3 mg Capsule take one capsule daily Oral daily; Duration: 30 days 11/18/2024 Active Vraylar 3 MG Capsule 1 capsule Oral Once a day; Duration: 90 days PA approved 03/10/24-04/09/25 04/09/2024 Active HYDROcodone-Acetamino phen 5-325 MG Tablet Oral 07/30/2023 Active Xiidra 5 % Solution Ophthalmic 07/30/2023 Active Rosuvastatin Calcium 40 MG Tablet Oral 07/30/2023 Active Montelukast Sodium 10 MG Tablet Oral 07/30/2023 Active Promethazine HCl 12.5 MG Tablet Oral 07/30/2023 Active metroNIDAZOLE 500 MG Tablet Oral 07/30/2023 Active PreviDent 5000 Plus 1.1 % Cream Dental 07/30/2023 Active Fludrocortisone Acetate 0.1 MG Tablet Oral 07/30/2023 Active Ipratropium [place] 0.06 % Solution Nasal 07/30/2023 Active Calcitriol 0.25 MCG Capsule Oral 07/30/2023 Active Immunizations Vaccine Route Administration Date Status Comme nts Influenza, seasonal, injecta ble, preservative free, 3 yrs and above Unknown 12/17/2001 Administered Influenza, unspecified formulation Unknown 08/16/2011 A dministered Novel [id number], preservative free Unknown 05/08/2014 Administered Pfizer Biontech [...] History Observation Description Sex Assigned At Female Social History Additional Details Category Social Info Options Details Migrated Social History Migrated Social History Alcohol Intake: None 02/08/2018,Tobacco Years: Former smoker 08/07/2022,Smoking Status: 0 09/25/2022 Problems Problem Type SNOMED Code ICD Code Onset Dates Problem Status W/U Status Risk Notes Problem Bipolar disorder (35976981) Other bipolar disorder (F31.89) 07/30/19 Active confirmed Problem Bipolar disorder (09506509) Bipolar disorder, unspecified (F31.9) Active confirmed Problem Generalized anxiety disorder (00002282) Generalized anxiety disorder (F41.1) 07/30/19 Active confirmed Problem Posttraumatic stress disorder (14087197) Post-traumatic stress disorder, chronic (F43.12) 07/30/19 Active confirmed Problem Primary insomnia (7147761) Primary insomnia (F51.01) 07/30/19 Active confirmed Problem Drug-induced tardive dystonia (236236345) Drug induced subacute dyskinesia (G24.01) 07/30/19 Active confirmed Problem Screening for cardiovascular system disease (596794157) Encounter for screening for cardiovascular disorders (Z13.6) Active confirmed Problem Long-term current use of drug therapy (260494855) Other terminal system operator (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) drug therapy (Z79.899) 07/30/19 Active confirmed Problem Psychogenic skin symptoms (742511282) Excoriation (skin-picking) disorder (F42.4) 07/30/19 Active confirmed Problem Depression Screening (570527903) Encounter for screening for depression (Z13.31) Active confirmed Problem Bipolar disorder (20439478) Depressed bipolar disorder (F31.9) Active confirmed Problem Dry mouth (69593734) Dry mouth (R68.2) Active confirmed Vital Signs Heart Rate 75 /min 11/18/2024 Respiratory Rate 18 /min 11/18/2024 Height-cm 160.02 cm 11/18/2024 Blood pressure diastolic 78 mm Hg 11/18/2024 Weight-kg 111.13 kg 11/18/2024 Height 63.00 in 11/18/2024 Blood pressure systolic 116 mm Hg 11/18/2024 Weight 245 lbs 11/18/2024 BMI 43.4 kg/m2 11/18/2024 Encounters Encounter Location Date Provider Diagnosis [facility] [employer] [address] [address] 01/14/2024 Lis Hemann Post-traumatic stres s disorder, chronic F43.12 ; Bipolar disorder, unspecified F31.9 and Excoriation (skin-picking) disorder F42.4 [facility] [employer] [address] 01/21/2024 Lis Hemann Post-traumatic stres s disorder, chronic F43.12 ; Depressed bipolar disorder F31.9 ; Generalized anxiety disorder F41.1 and Excoriation (skin-picking) disorder F42.4 [facility] [employer] [address] 02/25/2024 Lis Hemann Post-traumatic stres s disorder, chronic F43.12 ; Depressed bipolar disorder F31.9 ; Generalized anxiety disorder F41.1 and Excoriation (skin-picking) disorder F42.4 [facility] [employer] [address] 02/28/2024 Candice Machado Generalized anxiety disorder F41.1 ; Depressed bipolar disorder F31.9 ; Primary insomnia F51.01 ; Post-traumatic stress disorder, chronic F43.12 ; Other terminal system operator (current) drug therapy Z79.899 ; Excoriation (skin-picking) disorder F42.4 ; Drug induced subacute dyskinesia G24.01 ; Dry mouth R68.2 and Hypertension, unspecified type 401.9 [facility] [address] [facility] [address] [place] [address] 03/03/2024 Lis Hemann Post-traumatic stres s disorder, chronic F43.12 ; Depressed bipolar disorder F31.9 ; Generalized anxiety disorder F41.1 and Excoriation (skin-picking) disorder F42.4 [facility] [address] [facility] [address] [place] [address] 04/07/2024 Lis Hemann Post-traumatic stres s disorder, chronic F43.12 ; Depressed bipolar disorder F31.9 ; Generalized anxiety disorder F41.1 and Excoriation (skin-picking) disorder F42.4 [facility] [address] [facility] [address] [facility] [address] [place] [address] 05/26/2024 Candice Machado Generalized anxiety disorder F41.1 ; Depressed bipolar disorder F31.9 ; Primary insomnia F51.01 ; Post-traumatic stress disorder, chronic F43.12 ; Other terminal system operator (current) drug therapy Z79.899 ; Excoriation (skin-picking) disorder F42.4 ; Drug induced subacute dyskinesia G24.01 and Dry mouth R68.2 [facility] [address] [address] 06/23/2024 Lis Hemann Post-traumatic stres s disorder, chronic F43.12 ; Depressed bipolar disorder F31.9 ; Generalized anxiety disorder F41.1 and Excoriation (skin-picking) disorder F42.4 [facility] [address] [address] 06/30/2024 Lis Hemann Post-traumatic stres s disorder, chronic F43.12 ; Depressed bipolar disorder F31.9 ; Generalized anxiety disorder F41.1 and Excoriation (skin-picking) disorder F42.4 [facility] [address] [facility] [address] [place] [address] 07/28/2024 Lis Hemann Post-traumatic stres s disorder, chronic F43.12 ; Generalized anxiety disorder F41.1 and Depressed bipolar disorder F31.9 [facility] [address] [facility] [address] [place] [address] 08/18/2024 Candice Machado Encounter for screen ing for depression Z13.31 ; Depressed bipolar disorder F31.9 ; Encounter for screening for cardiovascular disorders Z13.6 ; Generalized anxiety disorder F41.1 ; Primary insomnia F51.01 ; Post-traumatic stress disorder, chronic F43.12 ; Other terminal system operator (current) drug therapy Z79.899 ; Excoriation (skin-picking) disorder F42.4 ; Drug induced subacute dyskinesia G24.01 and Dry mouth R68.2 [facility] [address] [place] [address] 08/18/2024 Lis Hemann Post-traumatic stres s disorder, chronic F43.12 ; Generalized anxiety disorder F41.1 and Depressed bipolar disorder F31.9 [facility] [place] [address] [facility] [address] [place] [address] 09/12/2024 Lis Hemann Post-traumatic stres s disorder, chronic F43.12 ; Generalized anxiety disorder F41.1 and Depressed bipolar disorder F31.9 [facility] [address] [facility] [address] [place] [address] 10/03/2024 Lis Hemann Post-traumatic stres s disorder, chronic F43.12 ; Generalized anxiety disorder F41.1 and Depressed bipolar disorder F31.9 [facility] [address] [place] [address] 10/07/2024 Lis Hemann Post-traumatic stres s disorder, chronic F43.12 ; Generalized anxiety disorder F41.1 and Depressed bipolar disorder F31.9 [facility] [employer] [facility] [address] [place] [address] 10/22/2024 Lis Hemann Post-traumatic stres s disorder, chronic F43.12 ; Generalized anxiety disorder F41.1 and Depressed bipolar disorder F31.9 [facility] [employer] [facility] [address] [place] [address] 11/04/2024 Lis Hemann Post-traumatic stres s disorder, chronic F43.12 ; Generalized anxiety disorder F41.1 and Depressed bipolar disorder F31.9 [facility] [employer] [facility] [address] [place] [address] 11/18/2024 Candice Machado Primary insomnia F51 .01 ; Depressed bipolar disorder F31.9 ; Encounter for screening for depression Z13.31 ; Generalized anxiety disorder F41.1 ; Post-traumatic stress disorder, chronic F43.12 ; Other terminal system operator (current) drug therapy Z79.899 ; Excoriation (skin-picking) disorder F42.4 ; Drug induced subacute dyskinesia G24.01 and Dry mouth R68.2 [facility] [employer] [place] [address] [address] 11/18/2024 Lis Rodríguez Generalized anxiety disorder F41.1 and Post-traumatic stress disorder, chronic F43.[address] [address] 12/08/2024 Lis Rodríguez Generalized anxiety disorder F41.1 and Post-traumatic stress disorder, chronic F43.[address] [address] 04/08/2024 Candice Machado Bipolar disorder, unspecified F31.[address] [address] 09/12/2024 Lis Rodríguez Assessments Encounter Date Diagnosis [...] 06/30/2024 Depressed bipolar disorder (ICD-10 - F31.9) 01/14/2024 Bipolar disorder, unspecified (ICD-10 - F31.9) [...] Post-traumatic stress disorder, chronic (ICD-10 - F43.12) 10/22/2024 Post-traumatic stress disorder, chronic (ICD-10 - F43.12) 11/04/2024 Post-traumatic stress disorder, chronic (ICD-10 - F43.12) 11/18/2024 Generalized anxiety disorder (ICD-10 - F41.1) 11/18/2024 Primary insomnia (ICD-10 - F51.01) Insomnia: Care [...] hand lamotrigine 200 mg po bid labs in chart continue therapy hx parathyroid abnormal see specialist - parathyroid and vit d educated on all medications, benefits, side effects and risk, and educated on depression, anxiety, and , mood d/o and educated on compliance of medications, appointment's, continue therapy discussion with patient about course of treatment and patient instructions. Lamotrigine lamotrigine has a serious rashes requiring hospitalization and [...] sleep schedule in therapy sleep hygiene educated Sleep Hygeine- - KEEP YOUR BEDROOM DARK - GET LOTS OF NATURAL LIGHT IN THE MORNING. - DON'T WORK ON YOUR COMPUTER OR PHONE LATE AT NIGHT. - AVOID NAPS DURING THE DAY. - NO CAFFEINE 3 HOURS OR MORE AFTER WAKE UP TIME. - ONLY USE YOUR BED FOR SLEEPING - GET A RELAXATION ROUTINE BEFORE BED. - IF YOU CAN'T GET TO SLEEP AFTER 15 TO 30 MINUTES GET OUT OF BED AND DO SOMETHING RELAXING. - DON'T DRINK ALCOHOL IN THE EVENING or limit alcohol to 1 drink. Melatonin 10 mg otc nightly. Trazodone 100 at bedtime 4. Tardive dyskinesia - [employer] insurance denied and appeal patient does not want rx - monitor patient will see neurologist about movement 06/08 educated on medication AIMS= 11 12/26/21 AIMS= 2 08/18/24 missing teeth and reported shakes once in a while rt hand 5 dry mouth educated on dry mouth and use Biotine disucss medications and dry mouth . Long-term drug therapy reviewed in [facility] (08/04/2014) 12 11/18/2024 Depressed bipolar disorder (ICD-10 - F31.9) Bipolar [...] hand lamotrigine 200 mg po bid labs in chart continue therapy hx parathyroid abnormal see specialist - parathyroid and vit d educated on all medications, benefits, side effects and risk, and educated on depression, anxiety, and , mood d/o and educated on compliance of medications, appointment's, continue therapy discussion with patient about course of treatment and patient instructions. Lamotrigine lamotrigine has a serious rashes requiring hospitalization and [...] sleep schedule in therapy sleep hygiene educated Sleep Hygeine- - KEEP YOUR BEDROOM DARK - GET LOTS OF NATURAL LIGHT IN THE MORNING. - DON'T WORK ON YOUR COMPUTER OR PHONE LATE AT NIGHT. - AVOID NAPS DURING THE DAY. - NO CAFFEINE 3 HOURS OR MORE AFTER WAKE UP TIME. - ONLY USE YOUR BED FOR SLEEPING - GET A RELAXATION ROUTINE BEFORE BED. - IF YOU CAN'T GET TO SLEEP AFTER 15 TO 30 MINUTES GET OUT OF BED AND DO SOMETHING RELAXING. - DON'T DRINK ALCOHOL IN THE EVENING or limit alcohol to 1 drink. Melatonin 10 mg otc nightly. Trazodone 100 at bedtime 4. Tardive dyskinesia - [employer] insurance denied and appeal patient does not want rx - monitor patient will see neurologist about movement 06/08 educated on medication AIMS= 11 12/26/21 AIMS= 2 08/18/24 missing teeth and reported shakes once in a while rt hand 5 dry mouth educated on dry mouth and use Biotine disucss medications and dry mouth . Long-term drug therapy reviewed in [facility] (08/04/2014) 12 12/08/2024 Generalized anxiety disorder (ICD-10 - F41.1) 12/08/2024 Post-traumatic stress disorder, chronic (ICD-10 - F43.12) 11/18/2024 Encounter for screening for depression (ICD-10 - Z13.31) 1. bipolar disorder -wants 30 days refills only r/t co-pays Vraylar 3 mg daily eat with rx for psychosis AIMS=11 12/26/21 AIMS= 02/05/23 AIMS= 2 08/18/24 missing teeth and reported shakes once in a while rt hand lamotrigine 200 mg po bid labs in chart continue therapy hx parathyroid abnormal see specialist - parathyroid and vit d educated on all medications, benefits, side effects and risk, and educated on depression, anxiety, and , mood d/o and educated on compliance of medications, appointment's, continue therapy discussion with patient about course of treatment and patient instructions. Lamotrigine lamotrigine has a serious rashes requiring hospitalization and [...] sleep schedule in therapy sleep hygiene educated Sleep Hygeine- - KEEP YOUR BEDROOM DARK - GET LOTS OF NATURAL LIGHT IN THE MORNING. - DON'T WORK ON YOUR COMPUTER OR PHONE LATE AT NIGHT. - AVOID NAPS DURING THE DAY. - NO CAFFEINE 3 HOURS OR MORE AFTER WAKE UP TIME. - ONLY USE YOUR BED FOR SLEEPING - GET A RELAXATION ROUTINE BEFORE BED. - IF YOU CAN'T GET TO SLEEP AFTER 15 TO 30 MINUTES GET OUT OF BED AND DO SOMETHING RELAXING. - DON'T DRINK ALCOHOL IN THE EVENING or limit alcohol to 1 drink. Melatonin 10 mg otc nightly. Trazodone 100 at bedtime 4. Tardive dyskinesia - [employer] insurance denied and appeal patient does not want rx - monitor patient will see neurologist about movement 06/08 educated on medication AIMS= 11 12/26/21 AIMS= 2 08/18/24 missing teeth and reported shakes once in a while rt hand 5 dry mouth educated on dry mouth and use Biotine disucss medications and dry mouth . 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 [...] 01/21/2024 Generalized anxiety disorder (ICD-10 - F41.1) 07/28/2024 [...] 06/30/2024 Excoriation (skin-picking) disorder (ICD-10 - F42.4) 01/21/2024 Excoriation (skin-picking) disorder (ICD-10 - F42.4) [...] 10/03/2024 Depressed bipolar disorder (ICD-10 - F31.9) 10/22/2024 Depressed bipolar disorder (ICD-10 - F31.9) 10/07/2024 Depressed bipolar disorder (ICD-10 - F31.9) 11/04/2024 Depressed bipolar disorder (ICD-10 - F31.9) 11/18/2024 Generalized anxiety disorder (ICD-10 - F41.1) Learning [...] hand lamotrigine 200 mg po bid labs in chart continue therapy hx parathyroid abnormal see specialist - parathyroid and vit d educated on all medications, benefits, side effects and risk, and educated on depression, anxiety, and , mood d/o and educated on compliance of medications, appointment's, continue therapy discussion with patient about course of treatment and patient instructions. Lamotrigine lamotrigine has a serious rashes requiring hospitalization and [...] sleep schedule in therapy sleep hygiene educated Sleep Hygeine- - KEEP YOUR BEDROOM DARK - GET LOTS OF NATURAL LIGHT IN THE MORNING. - DON'T WORK ON YOUR COMPUTER OR PHONE LATE AT NIGHT. - AVOID NAPS DURING THE DAY. - NO CAFFEINE 3 HOURS OR MORE AFTER WAKE UP TIME. - ONLY USE YOUR BED FOR SLEEPING - GET A RELAXATION ROUTINE BEFORE BED. - IF YOU CAN'T GET TO SLEEP AFTER 15 TO 30 MINUTES GET OUT OF BED AND DO SOMETHING RELAXING. - DON'T DRINK ALCOHOL IN THE EVENING or limit alcohol to 1 drink. Melatonin 10 mg otc nightly. Trazodone 100 at bedtime 4. Tardive dyskinesia - [employer] insurance denied and appeal patient does not want rx - monitor patient will see neurologist about movement 06/08 educated on medication AIMS= 11 12/26/21 AIMS= 2 08/18/24 missing teeth and reported shakes once in a while rt hand 5 dry mouth educated on dry mouth and use Biotine disucss medications and dry mouth . Long-term drug therapy reviewed in [facility] (08/04/2014) 12 11/18/2024 Post-traumatic stress disorder, chronic (ICD-10 - F43.12) Post-Traumatic Stress Disorder (PTSD): Care Instructions material was published 1. bipolar disorder -wants 30 days refills only r/t co-pays Vraylar 3 mg daily eat with rx for psychosis AIMS=11 12/26/21 AIMS= 02/05/23 AIMS= 2 08/18/24 missing teeth and reported shakes once in a while rt hand lamotrigine 200 mg po bid labs in chart continue therapy hx parathyroid abnormal see specialist - parathyroid and vit d educated on all medications, benefits, side effects and risk, and educated on depression, anxiety, and , mood d/o and educated on compliance of medications, appointment's, continue therapy discussion with patient about course of treatment and patient instructions. Lamotrigine lamotrigine has a serious rashes requiring hospitalization and [...] sleep schedule in therapy sleep hygiene educated Sleep Hygeine- - KEEP YOUR BEDROOM DARK - GET LOTS OF NATURAL LIGHT IN THE MORNING. - DON'T WORK ON YOUR COMPUTER OR PHONE LATE AT NIGHT. - AVOID NAPS DURING THE DAY. - NO CAFFEINE 3 HOURS OR MORE AFTER WAKE UP TIME. - ONLY USE YOUR BED FOR SLEEPING - GET A RELAXATION ROUTINE BEFORE BED. - IF YOU CAN'T GET TO SLEEP AFTER 15 TO 30 MINUTES GET OUT OF BED AND DO SOMETHING RELAXING. - DON'T DRINK ALCOHOL IN THE EVENING or limit alcohol to 1 drink. Melatonin 10 mg otc nightly. Trazodone 100 at bedtime 4. Tardive dyskinesia - [employer] insurance denied and appeal patient does not want rx - monitor patient will see neurologist about movement 06/08 educated on medication AIMS= 11 12/26/21 AIMS= 2 08/18/24 missing teeth and reported shakes once in a while rt hand 5 dry mouth educated on dry mouth and use Biotine disucss medications and dry mouth . Long-term drug therapy reviewed in [facility] (08/04/2014) 12 08/18/2024 Primary insomnia (ICD-10 - F51.01) Insomnia: [...] dry mouth . Long-term drug therapy 05/26/2024 Other shelter (current) drug therapy (ICD-10 - Z79.899) Medication [...] mouth . Long-term drug therapy 02/28/2024 Other shelter (current) drug therapy (ICD-10 - Z79.899) Medication [...] and dry mouth . Long-term drug therapy 11/18/2024 Other shelter (current) drug therapy (ICD-10 - Z79.899) Medication Refill: Care Instructions material was published 1. bipolar disorder -wants 30 days refills only r/t co-pays Vraylar 3 mg daily eat with rx for psychosis AIMS=11 12/26/21 AIMS= 02/05/23 AIMS= 2 08/18/24 missing teeth and reported shakes once in a while rt hand lamotrigine 200 mg po bid labs in chart continue therapy hx parathyroid abnormal see specialist - parathyroid and vit d educated on all medications, benefits, side effects and risk, and educated on depression, anxiety, and , mood d/o and educated on compliance of medications, appointment's, continue therapy discussion with patient about course of treatment and patient instructions. Lamotrigine lamotrigine has a serious rashes requiring hospitalization and [...] sleep schedule in therapy sleep hygiene educated Sleep Hygeine- - KEEP YOUR BEDROOM DARK - GET LOTS OF NATURAL LIGHT IN THE MORNING. - DON'T WORK ON YOUR COMPUTER OR PHONE LATE AT NIGHT. - AVOID NAPS DURING THE DAY. - NO CAFFEINE 3 HOURS OR MORE AFTER WAKE UP TIME. - ONLY USE YOUR BED FOR SLEEPING - GET A RELAXATION ROUTINE BEFORE BED. - IF YOU CAN'T GET TO SLEEP AFTER 15 TO 30 MINUTES GET OUT OF BED AND DO SOMETHING RELAXING. - DON'T DRINK ALCOHOL IN THE EVENING or limit alcohol to 1 drink. Melatonin 10 mg otc nightly. Trazodone 100 at bedtime 4. Tardive dyskinesia - [employer] insurance denied and appeal patient does not want rx - monitor patient will see neurologist about movement 06/08 educated on medication AIMS= 11 12/26/21 AIMS= 2 08/18/24 missing teeth and reported shakes once in a while rt hand 5 dry mouth educated on dry mouth and use Biotine disucss medications and dry mouth . Long-term drug therapy reviewed in [facility] (08/04/2014) 12 11/18/2024 Excoriation (skin-picking) disorder (ICD-10 - F42.4) Learning [...] hand lamotrigine 200 mg po bid labs in chart continue therapy hx parathyroid abnormal see specialist - parathyroid and vit d educated on all medications, benefits, side effects and risk, and educated on depression, anxiety, and , mood d/o and educated on compliance of medications, appointment's, continue therapy discussion with patient about course of treatment and patient instructions. Lamotrigine lamotrigine has a serious rashes requiring hospitalization and [...] sleep schedule in therapy sleep hygiene educated Sleep Hygeine- - KEEP YOUR BEDROOM DARK - GET LOTS OF NATURAL LIGHT IN THE MORNING. - DON'T WORK ON YOUR COMPUTER OR PHONE LATE AT NIGHT. - AVOID NAPS DURING THE DAY. - NO CAFFEINE 3 HOURS OR MORE AFTER WAKE UP TIME. - ONLY USE YOUR BED FOR SLEEPING - GET A RELAXATION ROUTINE BEFORE BED. - IF YOU CAN'T GET TO SLEEP AFTER 15 TO 30 MINUTES GET OUT OF BED AND DO SOMETHING RELAXING. - DON'T DRINK ALCOHOL IN THE EVENING or limit alcohol to 1 drink. Melatonin 10 mg otc nightly. Trazodone 100 at bedtime 4. Tardive dyskinesia - [employer] insurance denied and appeal patient does not want rx - monitor patient will see neurologist about movement 06/08 educated on medication AIMS= 11 12/26/21 AIMS= 2 08/18/24 missing teeth and reported shakes once in a while rt hand 5 dry mouth educated on dry mouth and use Biotine disucss medications and dry mouth . Long-term drug therapy reviewed in [facility] (08/04/2014) 12 08/18/2024 Other shelter (current) drug therapy (ICD-10 - Z79.899) Medication [...] dry mouth . Long-term drug therapy 05/26/2024 Drug induced subacute [...] and dry mouth . 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 bipolar disorder -wants 30 days refills only r/t co-pays Vraylar 3 mg daily eat with rx for psychosis AIMS=11 12/26/21 AIMS= 02/05/23 AIMS= 2 08/18/24 missing teeth and reported shakes once in a while rt hand lamotrigine 200 mg po bid labs in chart continue therapy hx parathyroid abnormal see specialist - parathyroid and vit d educated on all medications, benefits, side effects and risk, and educated on depression, anxiety, and , mood d/o and educated on compliance of medications, appointment's, continue therapy discussion with patient about course of treatment and patient instructions. Lamotrigine lamotrigine has a serious rashes requiring hospitalization and [...] sleep schedule in therapy sleep hygiene educated Sleep Hygeine- - KEEP YOUR BEDROOM DARK - GET LOTS OF NATURAL LIGHT IN THE MORNING. - DON'T WORK ON YOUR COMPUTER OR PHONE LATE AT NIGHT. - AVOID NAPS DURING THE DAY. - NO CAFFEINE 3 HOURS OR MORE AFTER WAKE UP TIME. - ONLY USE YOUR BED FOR SLEEPING - GET A RELAXATION ROUTINE BEFORE BED. - IF YOU CAN'T GET TO SLEEP AFTER 15 TO 30 MINUTES GET OUT OF BED AND DO SOMETHING RELAXING. - DON'T DRINK ALCOHOL IN THE EVENING or limit alcohol to 1 drink. Melatonin 10 mg otc nightly. Trazodone 100 at bedtime 4. Tardive dyskinesia - [employer] insurance denied and appeal patient does not want rx - monitor patient will see neurologist about movement 06/08 educated on medication AIMS= 11 12/26/21 AIMS= 2 08/18/24 missing teeth and reported shakes once in a while rt hand 5 dry mouth educated on dry mouth and use Biotine disucss medications and dry mouth . Long-term drug therapy reviewed in [facility] (08/04/2014) 12 11/18/2024 Dry mouth (ICD-10 - R68.2) Dry Mouth: Care Instructions material was published 1. bipolar disorder -wants 30 days refills only r/t co-pays Vraylar 3 mg daily eat with rx for psychosis AIMS=11 12/26/21 AIMS= 02/05/23 AIMS= 2 08/18/24 missing teeth and reported shakes once in a while rt hand lamotrigine 200 mg po bid labs in chart continue therapy hx parathyroid abnormal see specialist - parathyroid and vit d educated on all medications, benefits, side effects and risk, and educated on depression, anxiety, and , mood d/o and educated on compliance of medications, appointment's, continue therapy discussion with patient about course of treatment and patient instructions. Lamotrigine lamotrigine has a serious rashes requiring hospitalization and [...] sleep schedule in therapy sleep hygiene educated Sleep Hygeine- - KEEP YOUR BEDROOM DARK - GET LOTS OF NATURAL LIGHT IN THE MORNING. - DON'T WORK ON YOUR COMPUTER OR PHONE LATE AT NIGHT. - AVOID NAPS DURING THE DAY. - NO CAFFEINE 3 HOURS OR MORE AFTER WAKE UP TIME. - ONLY USE YOUR BED FOR SLEEPING - GET A RELAXATION ROUTINE BEFORE BED. - IF YOU CAN'T GET TO SLEEP AFTER 15 TO 30 MINUTES GET OUT OF BED AND DO SOMETHING RELAXING. - DON'T DRINK ALCOHOL IN THE EVENING or limit alcohol to 1 drink. Melatonin 10 mg otc nightly. Trazodone 100 at bedtime 4. Tardive dyskinesia - [employer] insurance denied and appeal patient does not want rx - monitor patient will see neurologist about movement 06/08 educated on medication AIMS= 11 12/26/21 AIMS= 2 08/18/24 missing teeth and reported shakes once in a while rt hand 5 dry mouth educated on dry mouth and use Biotine disucss medications and dry mouth . Long-term drug therapy reviewed in [facility]ON[facility] (08/04/2014) 12 08/18/2024 Drug induced subacute dyskinesia (ICD-10 - [...] and dry mouth . Long-term drug therapy Plan Of Treatment Next Appt Details Provider Name:Lis Ana Marcos, 12/23/2024 09:00:00 AM, [employer], [place], [address], Provider Name:Lis Ana Marcos, 01/08/2025 09:00:00 AM, [employer] [address], [place], [address], Provider Name:Lis Rodríguez, 01/19/2025 09:00:00 AM, [employer] [address], [place], [address], Provider Name:Candice Jeannette , 02/04/2025 08:30:00 AM, [employer] [address] [facility], [place], [address], Provider Name:Lis Perez Marcos, 02/04/2025 09:00:00 AM, [employer] [address], [place], [address], Provider Name:Lis Ana Marcos, 02/24/2025 09:00:00 AM, [employer] [address], [place], [address], Insurance Providers Payer Name Payer Address Payer Phone Subscriber Number Group Number Insured Name Patient Relationship to Insured Coverage Start Date Coverage End Date [facility] Ppo [address] [place] [address] [id number] FREDDY LIN Self - patient is the insured Medicaid-[place] l Medicaid [address] [address] [place] [address] [id number] FREDDY LIN Self - patient is the insured Medical (General) History Medical History History ICD Code Problems: Chronic post-traumatic stress disorder Cortical blindness Generalized anxiety disorder History of eating disorder Long-term drug therapy Mild bipolar disorder Movement disorder Overweight Primary insomnia Repetitive self-excoriation Severe depressed bipolar I disorder with psychotic features Suicidal thoughts Tardive dyskinesia ,
[2024-12-18 12:20] LABS: Hematocrit 44.0 % (37.0-47.0); Hemoglobin 14.0 g/dL (12.0-15.0); Immature Granulocyte Percent A 0.7 % (0-0.5); Lymphocytes Absolute Auto 1.78 K/mm3 (0.9-3.2); Mean Corpuscular HGB Conc 31.8 g/dl (32-36); Mean Corpuscular Hemoglobin 27.9 pg (26-34); Mean Corpuscular Volume 87.6 fl (80-100); Nucleated Red Blood Cells Absolute Auto 0.000 K/mm3 (0.0-0.012); Nucleated Red Blood Cells Perc 0.0 % (0.0-0.2); Platelet Count Result 369 k/mm3 (150-375); Red Blood Count 5.02 M/mm3 (4.2-5.4); White Blood Count 11.2 K/mm3 (4.5-10.0)
[2024-12-18 13:01] LABS: Free T4 Free Thyroxine 0.89 ng/dL (0.78-2.19)
[2024-12-18 13:16] LABS: Thyroid Stimulating Hormone 1.110 uIU/mL (0.465-4.680)
[2024-12-18 13:34] LABS: Vitamin B12 383.0 pg/mL (239-931)
== END 2024-12-18 11:34 | disposition home or self-care (01) ==
LOC: ANHLAB 11:37
PROVIDERS: PCP Internal Medicine; Visit Provider Internal Medicine
DX: E53.8 Deficiency of other specified B group vitamins (principal); R53.83 Other fatigue
CPT/HCPCS: 36415; 82607; 84439; 84443; 85025

== ENCOUNTER 2024-12-29 09:43 | Outpatient (CLI) | payer BC, MEDICAID, SELFPAY ==
--- NOTE | ~2024-12-29 | DEXA_ITS ---
Bone Density Report Name: FREDDY NEVAREZ Age: 54 Sex: Female Ethnicity: White Date of : 1970 Indication: hyperparathyroidism; history of glucocorticoids; prior fracture; anorexia or bulimia; seizure disorder; asthma or emphysema; hysterectomy; Referring Provider: JOSE KENNEDY Study: Bone densitometry was performed. Exam Date: December 29, 2024 Accession number: [id number] Bone Density: Region BMD T-score Z-score Classification AP Spine(L1-L4) 1.096 0.4 1.5 Normal Femoral Neck (Left) 0.591 -2.3 -1.3 Osteopenia Total Hip (Left) 0.968 0.2 0.9 Normal Femoral Neck (Right) 0.740 -1.0 0.0 Normal Total Hip (Right) 0.896 -0.4 0.3 Normal Total Hip Mean 0.932 -0.1 0.6 Normal World Health Organization criteria for BMD impression classify patients as: Normal (T-score at or above -1.0), Osteopenia (T-score between -1.0 and -2.5), or Osteoporosis (T-score at or below -2.5). 10-year Fracture Risk(1): Major Osteoporotic Fracture 21% Hip Fracture 3.7% Reported Risk Factors: [place] (), Neck BMD=0.591, BMI=38.9, previous fracture, glucocorticoids (1) FRAX(R) Version 3.08. Fracture probability calculated for an untreated patient. Fracture probability may be lower if the patient has received treatment. Previous Exams: Region Exam Age BMD T-score BMD Change BMD Change Date g/cm2 vs Baseline vs Previous AP Spine (L1-L4) 12/29/2024 54 1.096 0.4 0.068 (6.6%)* 0.084 (8.3%)* 09/04/2022 52 1.013 -0.3 -0.016 (-1.6%) -0.026 (-2.5%) 08/23/2020 50 1.039 -0.1 0.010 (1.0%) 0.010 (1.0%) 08/05/2018 48 1.029 -0.2 Total Hip(Left) 12/29/2024 54 0.968 0.2 0.157 (19.4%)* 0.021 (2.3%) 09/04/2022 52 0.947 0.0 0.136 (16.8%)* 0.097 (11.4%)* 08/23/2020 50 0.850 -0.8 0.039 (4.8%)* 0.039 (4.8%)* 08/05/2018 48 0.811 -1.1 Total Hip(Right) 12/29/2024 54 0.896 -0.4 0.134 (17.7%)* 0.066 (8.0%)* 09/04/2022 52 0.830 -0.9 0.068 (9.0%)* 0.072 (9.5%)* 08/23/2020 50 0.758 -1.5 -0.004 (-0.5%) -0.004 (-0.5%) 08/05/2018 48 0.761 -1.5 *Denotes significance at 95% confidence level, LSC for AP Spine = 0.022 g/cm2, LSC for Total Hip = 0.027 g/cm2 Clinical Information Provided by Patient: Has had a low trauma fracture Has taken Glucocorticoids Has used the following medications: Vitamin D, Calcium Has the following medical conditions: Anorexia or Bulimia, Any Seizure Disorders, Asthma or Emphysema, Hyperparathyroidism, Hysterectomy Patient maximum height was 64 Menopause Age: 41 No regular weight bearing exercise Drinks caffeinated beverages Onset of menses at age 12 Number of children 0 Impression: The patient has low bone mass, based on the Left Femoral Neck T-score. The patient has an estimated ten-year risk of hip fracture of 3.7% and an estimated ten-year risk of major fracture of 21%, based on the WHO FRAX algorithm. The patient has risk factors, including: previous fracture, history of glucocorticoid therapy. No significant bone loss was observed. Discussion: BONE DENSITY IS LOW AT ONE OR MORE SKELETAL SITES. THE PATIENT'S BMD AND CLINICAL RISK FACTORS CONTRIBUTE TO THIS PATIENT'S HIGH RISK OF FRACTURE. This patient's lowest T-score is low at one or more skeletal sites. It meets the World Health Organization's (WHO) criteria for ?low bone mass? (T-score between -1.0 and -2.5). The patient's 10-year risk of hip fracture and 10 year risk of a major osteoporotic fracture as calculated by FRAX exceeds the threshold where pharmacological therapy is recommended by the National Osteoporosis Foundation (NOF). However, all treatment decisions require clinical judgment and consideration of individual patient factors, including patient preferences, comorbidities, previous drug use, risk factors not captured in the FRAX model (e.g., frailty, falls, vitamin D deficiency, increased bone turnover, interval significant decline in bone density) and possible under or overestimation of fracture risk by FRAX. The patient should follow a healthful lifestyle (good nutrition with adequate calcium and vitamin D, and appropriate weight-bearing exercise). Follow-Up: Consider a repeat BMD and Vertebral Fracture Assessment (VFA) exam in 2 years or sooner if medically necessary, to reassess this patient's status. Reported by: JOSE on 12/29/2024 10:29:00 AM. Reviewed, dictated and finalized at location A.
--- OUTSIDE RECORDS SUMMARY | 2024-12-29 10:28 | XMS_ITS | Clinical Summary ---
Author Organization [facility] Address [address] [place] [address] Care Team Providers Care Vp Integration Name Role Phone Unavailable Primary Care Provider [...] Vaccine (1 - 2023-2 5 season) 2024 Influenza Adult (#1) 2024 Meningococcal B Vaccine Aged Out No [...]
--- OUTSIDE RECORDS SUMMARY | 2024-12-29 10:28 | XMS_ITS | Clinical Summary ---
Author Organization [facility] [address] Address [address] [place] [address] Care Team Providers Care Set Up Technician Name Role Phone Luc Munoz Primary Care Provider [phone] Allergies Active Allergy Reactions Criticality Noted Date [...] 2 (two) times a day Active vit C,M-Nr-ydtze-lutei n-zeaxan [id number] ug-utni-as-mg capsule Take by mouth 2 (two) times [...] day 60 tablet 11 1 Active carboxymethyl-gly- rjso46-MW 0.5-1-0.5 % dropperette Administer into affected eye(s) [...] 05/17/2020 Assessment & Plan (05/17/2020 2:06 PM SWEEP PRESS OPERATOR): Patient has a history of episodic [...] year. Assessment & Plan (05/17/2020 2:05 PM SWEEP PRESS OPERATOR): Patient had adverse effects with propranolol [...] similar to what she has had [facility] but she still having them the majority [...] have on her headache, but I did counselor dormitory her that potentially it could exacerbate her [...] pancreatitis or GERD. She will see her investigative assistant in January. Assessment & Plan (10/09/2016 1:03 [...] Type Department Care Team Description 12/04/2024 Telephone [facility] Neurology [address] [place] [phone] Natacha Duran NP Prior Auth (Emgality 120MG) [...] on file Legal Sex Female 7:41 PM SWEEP PRESS OPERATOR Gender Identity Not on file Sexual [...] BL CHOICE PRF P[place] Care Teams Set Up Technician Relationship Specialty Start Date End Date Luc Munoz DO PCP - General Internal Medicine 08/25/24
--- OUTSIDE RECORDS SUMMARY | 2024-12-29 10:28 | XMS_ITS | Clinical Summary ---
Author Organization [facility] Address [address] [place] [address] Care Team Providers Care Trash Truck Driver Name Role Phone Lucio Nicole MD Primary Care Provider [phone] Cyrus Bailey MD Unavailable [phone] Source Comments [facility],non-owned Affiliates and Associated Physician Practices is amultiple site organization consisting of ambulatory clinics and hospital sitesin [place], [place], [place] and [place]. This disclosure is being madepursuant to the Care Everywhere program and may not contain all information available regarding this patient. Last updated 17.[facility] Allergies Active Allergy Reactions Criticality Noted [...] 4 times daily. 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 BUN 11 7 - 17 mg/dl [facility] Creatinine 0.49(L) 0.52 - 1.04 mg/dl [facility] Glucose 95 65 - 105 mg/dl [facility] Calcium 9.6 8.4 - 10.2 mg/dl [facility] Alkaline Phosphatase 104 38 - 126 U/L [facility] AST 39 8 - 39 U/L [facility] Bilirubin Total 0.4 0.2 - 1.3 mg/dl [facility] Protein Total 6.9 6.3 - 8.2 gm/dl [facility] Albumin 4.1 3.9 - 5.0 gm/dl [facility] CO2 25 22 - 30 mmol/L [facility] ALT 17 9 - 52 U/L [facility] eGFR by MDRD 140 >60 mL/min/1.[address] [facility] Comment eGFR [facility] Comment: The eGFR does not apply to patients who are younger than 18 or older than 70. BLOOD SPECIMEN / Unknown 08/05/2010 9:28 PM CDT 08/05/2010 9:39 PM CDT Sean Bolton DO LAB - CHEMISTRY ORDERABLES Fin al Result Performing Organization Address City/State/[facility] Co de Phone Number [facility] [address] [place] [address] from Last 3 Months or Most Recently Relevant to Health Maintenance Insurance [facility] MEDICAID - OUT OF STATE [facility] [place] [facility] [place]ICAID - [place] Advance Directives * Full Code (Latest Code Status on File) Date Activated Date Inactivated Comments 08/06/2010 2:02 AM 08/13/2010 4:27 AM Care Teams Trash Truck Driver Relationship Specialty Start Date End Date Lucio Nicole MD [address] [place] [address] PCP - General 08/05/10 Cyrus Bailey MD [address] [place] [address] Referring Physician Orthopedic Surgery 06/09/14
--- OUTSIDE RECORDS SUMMARY | 2024-12-29 10:28 | XMS_ITS | Clinical Summary ---
Author Organization [facility] Address [address], [address] [address] Phone Care Team Providers Care Commercial Center Manager Name Role Phone Mono Magaña DO [...] as directed. Active nystatin-triamcin olone (MYCOLOG II) 493115-4.1 UNIT/GM-% Cream Apply 3 times daily. Affected [...] MG Tablet Take by mouth. Active Pancrelipase, Bra-Drfj-Tqsp, [address] Particles Take 2 Caps [...] Health Maintenance Insurance [place] Care Teams Commercial Center Manager Relationship Specialty Start Date End Date Mono Magaña DO [address] [place] [address] PCP - General Internal Medicine 10/24/18
--- OUTSIDE RECORDS SUMMARY | 2024-12-29 10:28 | XMS_ITS | Encounter Summary ---
Author Organization [facility] Address [address] [place] [address] Care Team Providers Care Fleet Director Name Role Phone Luc Munoz DO Primary Care Provider Reason for Visit * Reason Onset Date Comments Prior Auth 12/04/2024 Emgality 120MG Encounter Details Date Type Department Care Team (Late st Contact Info) Description 12/04/2024 Telephone [facility] Neurology [address] [place] [phone] Natacha Duran, GARRY [address] [place] [address] Prior Auth (Emgality 120MG) Social History Tobacco Use Types Packs/Day Years Used Date Smoking Tobacco: Never Smokeless Tobacco: Never Alcohol Use Standard Drinks/Week Comments No 0 (1 standard drink = 0.6 oz pur e alcohol) Comments Unknown Sex and Gender Information Value Date Recorded Sex Assigned at Not on file Legal Sex Female 7:41 PM LEAK PATCHER Gender Identity Not on file Sexual Orientation Not on file documented as of this encounter Miscellaneous Notes * Telephone Encounter - Bhavana Ortega MA - 12/05/2024 11:31 AM CDT Emgality 120MG/ML auto-injectors (migraine) Form [facility] Commercial Electronic PA Form Your request was [...] on filedocumented in this encounter Care Teams Fleet Director Relationship Specialty Start Date End Date Luc Munoz DO PCP - General Internal Medicine 08/25/24 documented as of this encounter
== END 2024-12-29 09:44 | disposition home or self-care (01) ==
LOC: ANHFOHIMG 09:44
PROVIDERS: PCP Internal Medicine; Visit Provider Internal Medicine Endocrinology, Diabetes & Metabolism
DX: M85.80 Other specified disorders of bone density and structure, unspecified site (principal); E55.9 Vitamin D deficiency, unspecified; R79.89 Other specified abnormal findings of blood chemistry; E21.3 Hyperparathyroidism, unspecified; R73.03 Prediabetes; M85.852 Other specified disorders of bone density and structure, left thigh
CPT/HCPCS: 77080

== ENCOUNTER 2025-01-22 07:26 | Outpatient (CLI) | payer BC, MEDICAID, SELFPAY ==
--- NOTE | ~2025-01-22 | MM_ITS ---
EXAMINATION: screening [facility] BI w donna INDICATION: Asymptomatic, referred for screening mammogram COMPARISON: 01/15/2023 through 03/10/2019 TECHNIQUE: Digital Breast Tomosynthesis CC, MLO views of Both breasts were obtained with computer-aided detection to assist in interpretation of the study. FINDINGS: There are scattered areas of fibroglandular density. There is an asymmetry seen on the MLO view in the Superior left breast posterior third. Elsewhere, there are no mammographic features of malignancy. IMPRESSION: 1. Left breast Asymmetry. 2. No evidence of malignancy in the Right breast. RECOMMENDATION: Left breast Diagnostic mammogram with true lateral, appropriate spot compression views and an ultrasound if needed. BI-RADS Category 0: Incomplete: Needs additional imaging evaluation. Reviewed, dictated and finalized at location B. F HELPER IMPRESSION: 1. Left breast Asymmetry. 2. No evidence of malignancy in the Right breast. RECOMMENDATION: Left breast Diagnostic mammogram with true lateral, appropriate spot compressio n views and an ultrasound if needed. BI-RADS Category 0: Incomplete: Needs additional imaging evaluation.
--- OUTSIDE RECORDS SUMMARY | 2025-01-22 16:26 | XMS_ITS | Clinical Summary ---
Author Organization [facility] Address [address], [address] [address] Phone Care Team Providers Care Hospital Cleaning Specialist Name Role Phone Mono Magaña DO Primary [...] as directed. Active nystatin-triamcin olone (MYCOLOG II) 959409-2.1 UNIT/GM-% Cream Apply 3 times daily. Affected [...] MG Tablet Take by mouth. Active Pancrelipase, Bnc-Abno-Oelh, [address] Particles Take 2 Caps [...] Health Maintenance Insurance [place]ID [place] Care Teams Hospital Cleaning Specialist Relationship Specialty Start Date End Date Mono Magaña DO [address] [place] [address] PCP - General Internal Medicine 10/24/18
--- OUTSIDE RECORDS SUMMARY | 2025-01-22 16:26 | XMS_ITS | Clinical Summary ---
Author Organization [facility] Address [address] [place] [address] Care Team Providers Care Code Number Stamper Name Role Phone Unavailable Primary Care Provider [...] of 2) 2020 COVID-19 Vaccine ( - 2024-2 6 season) 2024 Influenza Adult (#1) 2024 Hepatitis A Vaccines Aged Out No long er eligible based on patient's age to complete this topic Meningococcal B Vaccine Aged Out No l [...]
--- OUTSIDE RECORDS SUMMARY | 2025-01-22 16:26 | XMS_ITS | Clinical Summary ---
Author Organization [facility] Address [address] [place] [address] Care Team Providers Care Over The Road Driver Name Role Phone Lucio Nicole MD Primary Care Provider [phone] Cyrus Bailey MD Unavailable [phone] Source Comments [facility],non-owned Affiliates and Associated Physician Practices is amultiple site organization consisting of ambulatory clinics and hospital sitesin [place], [place], [place] and [place]. This disclosure is being madepursuant to the Care Everywhere program and may not contain all information available regarding this patient. Last updated 17.[facility] Allergies Active Allergy Reactions Criticality Noted [...] 4 times daily. 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 Not on file Not [...] LABORATORY Chloride 107 98 - 107 mmol/L [facility] BUN 11 7 - 17 mg/dl [facility] Creatinine 0.49(L) 0.52 - 1.04 mg/dl [facility] Glucose 95 65 - 105 mg/dl [facility] Calcium 9.6 8.4 - 10.2 mg/dl [facility] Alkaline Phosphatase 104 38 - 126 U/L [facility] AST 39 8 - 39 U/L [facility] Bilirubin Total 0.4 0.2 - 1.3 mg/dl [facility] Protein Total 6.9 6.3 - 8.2 gm/dl [facility] Albumin 4.1 3.9 - 5.0 gm/dl [facility] CO2 25 22 - 30 mmol/L [facility] ALT 17 9 - 52 U/L [facility] eGFR by MDRD 140 >60 mL/min/1.7 3m2 [facility] Comment eGFR [facility] Comment: The eGFR does not apply to patients who are younger than 18 or older than 70. BLOOD SPECIMEN / Unknown 08/05/2010 9:28 PM CDT 08/05/2010 9:39 PM CDT Sean Bolton DO LAB - CHEMISTRY ORDERABLES Fin al Result Performing Organization Address City/State/[facility] Co de Phone Number [facility] [address] [place] [address] from Last 3 Months or Most Recently Relevant to Health Maintenance Insurance [facility] MEDICAID - OUT OF STATE [facility] MEDICAID - [place] [facility] MED[place]ID [place] Advance Directives * Full Code (Latest Code Status on File) Date Activated Date Inactivated Comments 08/06/2010 2:02 AM 08/13/2010 4:27 AM Care Teams Over The Road Driver Relationship Specialty Start Date End Date Lucio Nicole MD [address] [place] [phone] PCP - General 08/05/10 Cyrus Bailey MD [address] [place] [address] Referring Physician Orthopedic Surgery 06/09/14
--- OUTSIDE RECORDS SUMMARY | 2025-01-22 16:26 | XMS_ITS | Clinical Summary ---
Author Organization [facility] [address] Address [address] [place] [address] Care Team Providers Care Business Development Recruiter Name Role Phone Luc Munoz Primary Care Provider [phone] Allergies Active Allergy Reactions Criticality Noted Date [...] 2 (two) times a day Active vit C,F-Oa-ertph-lutei n-zeaxan 047-983-67-1 oq-onuv-aq-mg capsule Take by mouth 2 (two) times [...] day 60 tablet 11 1 Active carboxymethyl-gly- fzdm14-WG 0.5-1-0.5 % dropperette Administer into affected eye(s) [...] 05/17/2020 Assessment & Plan (05/17/2020 2:06 PM FLOATING LABOR GANG SUPERVISOR): Patient has a history of episodic dizziness [...] year. Assessment & Plan (05/17/2020 2:05 PM FLOATING LABOR GANG SUPERVISOR): Patient had adverse effects with propranolol prescribed [...] similar to what she has had in [place] but she still having them the majority [...] have on her headache, but I did memorial counselor her that potentially it could exacerbate [...] pancreatitis or GERD. She will see her sky diver in January. Assessment & Plan (10/09/2016 1:03 [...] Type Department Care Team Description 12/04/2024 Telephone [facility] Neurology [address] [place] [address] Natacha Duran NP Prior Auth (Emgality 120MG) [...] on file Legal Sex Female 7:41 PM FLOATING LABOR GANG SUPERVISOR Gender Identity Not on file Sexual [...] [place]F [place] Care Teams Business Development Recruiter Relationship Specialty Start Date End Date Luc Munoz DO PCP - General Internal Medicine 08/25/24
--- OUTSIDE RECORDS SUMMARY | 2025-01-22 16:27 | XMS_ITS | Patient Health Record ---
Author Organization [facility] Address [address] [place] [address] Care Team Providers Care Vice President Diversity Name Role Phone Luc Munoz DO Primary Care Provider Candice Chanel Unavailable [phone] Lis Rodríguez Unavailable [phone] Allergies Allergen (clinical drug ingredient) Drug/Non Drug [...] Duration) Notes Start Date End Date Status traMADol HCl 50 MG Tablet Oral 07/30/2023 Active Cholecalciferol 1.25 MG (98535 UT) Capsule Oral 07/30/2023 Active Linzess 290 MCG Capsule Oral 07/30/2023 Active Meclizine HCl 12.5 MG Tablet Oral 07/30/2023 Active EMGALITY PEN 120 MG/ML SUBCUTANEOUS PEN INJECTOR *Reorder from [facility] for eRx and Interaction Alerts* 07/30/2023 Active Ondansetron 8 MG Tablet Disintegrating Oral 07/30/2023 Active Melatonin 10 mg Tablet Oral 07/30/2023 Active Tolnaftate 1 % Powder External 07/30/2023 Active Dicyclomine HCl 20 MG Tablet Oral 07/30/2023 Active Premarin 1.25 MG Tablet Oral 07/30/2023 Active Trimethoprim 100 MG Tablet Oral 07/30/2023 Active Nystop 925039 UNIT/GM Powder External 07/30/2023 Active Ezetimibe 10 MG Tablet Oral 07/30/2023 Active Sodium Fluoride 1.1 % Dental Paste *Reorder from [facility] for eRx and Interaction Alerts* 07/30/2023 Active Norethindrone 0.35 MG Tablet Oral 07/30/2023 Active Nystatin-Triamcinolon e 909347-8.1 UNIT/GM Cream External 07/30/2023 Active Bepreve 1.5 % Solution Ophthalmic 07/30/2023 Active clonazePAM 0.5 MG Tablet 1 tablet Oral four times a day; Duration: 30 days 11/18/2024 Active Sucralfate 1 GM Tablet Oral 07/30/2023 Active Venlafaxine HCl ER 75 MG Capsule Extended Release 24 Hour 1 capsule in the morning Oral Once a day; Duration: 30 days 11/18/2024 Active Azelastine HCl 0.05 % Solution Ophthalmic 07/30/2023 Active Sertraline HCl 50 MG Tablet 1 tablet Oral Once a day; Duration: 30 days 11/18/2024 Active Trulance 3 MG Tablet Oral 07/30/2023 Active Sertraline HCl 100 MG Tablet 1 tablet Oral Once a day; Duration: 30 days 11/18/2024 Active Tamsulosin HCl 0.4 MG Capsule Oral 07/30/2023 Active traZODone HCl 100 MG Tablet 1 tablet Oral bedtime; Duration: 30 days 11/18/2024 Active Clotrimazole-Betameth asone 1-0.05 % Cream External 07/30/2023 Active Vraylar 3 mg Capsule take one capsule daily Oral daily; Duration: 30 days 11/18/2024 Active traZODone HCl 100 MG Tablet 1 tablet Oral bedtime; Duration: 30 days Active Benzonatate 200 MG Capsule Oral 07/30/2023 Not-Taking Vraylar 3 MG Capsule 1 capsule Oral Once a day; Duration: 90 days PA approved 03/10/24-04/09/25 04/09/2024 Active lamoTRIgine 200 MG Tablet 1 tablet Oral twice a day; Duration: 30 days Active Phenazopyridine HCl 100 MG Tablet Oral 07/30/2023 Active Metoclopramide HCl 5 MG/5ML Solution Oral 07/30/2023 Active Acyclovir 800 MG Tablet Oral 07/30/2023 Active Clobetasol Propionate 0.05% Cream External 07/30/2023 Active PreviDent 5000 Plus 1.1 % Cream Dental 07/30/2023 Active Fludrocortisone Acetate 0.1 MG Tablet Oral 07/30/2023 Active Promethazine HCl 12.5 MG Tablet Oral 07/30/2023 Active metroNIDAZOLE 500 MG Tablet Oral 07/30/2023 Active Ipratropium [place] 0.06 % Solution Nasal 07/30/2023 Active Calcitriol 0.25 MCG Capsule Oral 07/30/2023 Active Albuterol Sulfate (2.5 MG/3ML) 0.083% Nebulization Solution Inhalation 07/30/2023 Active lamoTRIgine 200 MG Tablet 1 tablet Oral twice a day; Duration: 30 days 11/18/2024 Active Montelukast Sodium 10 MG Tablet Oral 07/30/2023 Active HYDROcodone-Acetamino phen 5-325 MG Tablet Oral 07/30/2023 Active Xiidra 5 % Solution Ophthalmic 07/30/2023 Active Fluticasone Propionate Diskus 50 MCG/ACT Aerosol Powder Breath Activated Inhalation *Reorder from [facility] for eRx and Interaction Alerts* 07/30/2023 Active Nurtec 75 MG Tablet Disintegrating Oral *Reorder from [facility] for eRx and Interaction Alerts* 07/30/2023 Active Terbinafine HCl 250 MG Tablet Oral 07/30/2023 Active Jublia 10 % Solution External 07/30/2023 Active Zenpep 10,000-32,000 -42,000 unit CAPSULE,DELAYED RELEASE (ENTERIC COATED) ORAL *Pick strength-form from [facility] for eRX* 07/30/2023 Active Ergocalciferol 1.25 MG (96507 UT) Capsule Oral 07/30/2023 Active Diclofenac Sodium 0.1 % Solution Ophthalmic 07/30/2023 Active Rosuvastatin Calcium 40 MG Tablet Oral 07/30/2023 Active Mupirocin 2% Ointment External 07/30/2023 Active Advair Diskus 250-50 MCG/DOSE Aerosol Powder Breath Activated Inhalation 07/30/2023 Active Immunizations Vaccine Route Administration Date Status Comme nts Influenza, seasonal, injecta ble, preservative free, 3 yrs and above Unknown 12/17/2001 Administered Influenza, unspecified formulation Unknown 08/16/2011 A dministered Novel [id number], preservative free Unknown 05/08/2014 Administered Pfizer Biontech [...] W/U Status Risk Notes Problem Bipolar disorder (70911695) Other bipolar disorder (F31.89) 07/30/19 Active confirmed Problem Bipolar disorder (52202329) Bipolar disorder, unspecified (F31.9) Active confirmed Problem Generalized anxiety disorder (86865569) Generalized anxiety disorder (F41.1) 07/30/19 Active confirmed Problem Posttraumatic stress disorder (81164826) Post-traumatic stress disorder, chronic (F43.12) 07/30/19 Active confirmed Problem Primary insomnia (2726158) Primary insomnia (F51.01) 07/30/19 Active confirmed Problem Drug-induced tardive dystonia (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) Drug induced subacute dyskinesia (G24.01) 07/30/19 Active confirmed Problem Screening for cardiovascular system disease (981169879) Encounter for screening for cardiovascular disorders (Z13.6) Active confirmed Problem Long-term current use of drug therapy (601756551) 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) 07/30/19 Active confirmed Problem Psychogenic skin symptoms (156391365) Excoriation (skin-picking) disorder (F42.4) 07/30/19 Active confirmed Problem Depression Screening (986793301) Encounter for screening for depression (Z13.31) Active confirmed Problem Bipolar disorder (03789315) Depressed bipolar disorder (F31.9) Active confirmed Problem Dry mouth (55588661) Dry mouth (R68.2) Active confirmed Vital Signs Heart Rate 75 /min 11/18/2024 Respiratory Rate 18 /min 11/18/2024 Height-cm 160.02 cm 11/18/2024 Blood pressure diastolic 78 mm Hg 11/18/2024 Weight-kg 111.13 kg 11/18/2024 Height 63.00 in 11/18/2024 Blood pressure systolic 116 mm Hg 11/18/2024 Weight 245 lbs 11/18/2024 BMI 43.4 kg/m2 11/18/2024 Encounters Encounter Location Date Provider Diagnosis [facility] [address] [address] 02/25/2024 Lis Hemann Post-traumatic stres s disorder, chronic F43.12 ; Depressed bipolar disorder F31.9 ; Generalized anxiety disorder F41.1 and Excoriation (skin-picking) disorder F42.4 [facility] [address] [address] 02/28/2024 Candice Machado Generalized anxiety disorder F41.1 ; Depressed bipolar disorder F31.9 ; Primary insomnia F51.01 ; Post-traumatic stress disorder, chronic F43.12 ; 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 Z79.899 ; Excoriation (skin-picking) disorder F42.4 ; Drug induced subacute dyskinesia G24.01 ; Dry mouth R68.2 and Hypertension, unspecified type 401.9 [facility] [address] [address] 03/03/2024 Lis Hemann Post-traumatic stres s disorder, chronic F43.12 ; Depressed bipolar disorder F31.9 ; Generalized anxiety disorder F41.1 and Excoriation (skin-picking) disorder F42.4 [facility] [address] [address] 04/07/2024 Lis Hemann Post-traumatic stres s disorder, chronic F43.12 ; Depressed bipolar disorder F31.9 ; Generalized anxiety disorder F41.1 and Excoriation (skin-picking) disorder F42.4 [place] [address] [facility] [address] [place] [address] 05/26/2024 Candice Machado Generalized anxiety disorder F41.1 ; Depressed bipolar disorder F31.9 ; Primary insomnia F51.01 ; Post-traumatic stress disorder, chronic F43.12 ; Other intermediate (current) drug therapy Z79.899 ; Excoriation (skin-picking) disorder F42.4 ; Drug induced subacute dyskinesia G24.01 and Dry mouth R68.2 [place] [address] [facility] [address] [place] [address] 06/23/2024 Lis Hemann Post-traumatic stres s disorder, chronic F43.12 ; Depressed bipolar disorder F31.9 ; Generalized anxiety disorder F41.1 and Excoriation (skin-picking) disorder F42.4 [place] [address] [address] 06/30/2024 Lis Hemann Post-traumatic stres s disorder, chronic F43.12 ; Depressed bipolar disorder F31.9 ; Generalized anxiety disorder F41.1 and Excoriation (skin-picking) disorder F42.4 [place] [address] [address] 07/28/2024 Lis Hemann Post-traumatic stres s disorder, chronic F43.12 ; Generalized anxiety disorder F41.1 and Depressed bipolar disorder F31.9 [place] [address] [address] 08/18/2024 Candice Machado Encounter for screen ing for depression Z13.31 ; Depressed bipolar disorder F31.9 ; Encounter for screening for cardiovascular disorders Z13.6 ; Generalized anxiety disorder F41.1 ; Primary insomnia F51.01 ; Post-traumatic stress disorder, chronic F43.12 ; Other intermediate (current) drug therapy Z79.899 ; Excoriation (skin-picking) disorder F42.4 ; Drug induced subacute dyskinesia G24.01 and Dry mouth R68.2 [place] [address] [facility] [address] [place] [address] 08/18/2024 Lis Hemann Post-traumatic stres s disorder, chronic F43.12 ; Generalized anxiety disorder F41.1 and Depressed bipolar disorder F31.9 [facility] [address] [place] [address] 09/12/2024 Lis Hemann Post-traumatic stres s disorder, chronic F43.12 ; Generalized anxiety disorder F41.1 and Depressed bipolar disorder F31.9 [facility] [address] [place] [address] 10/03/2024 Lis Hemann Post-traumatic stres s disorder, chronic F43.12 ; Generalized anxiety disorder F41.1 and Depressed bipolar disorder F31.9 [facility] [address] [place] [address] 10/07/2024 Lis Hemann Post-traumatic stres s disorder, chronic F43.12 ; Generalized anxiety disorder F41.1 and Depressed bipolar disorder F31.9 [facility] [address] [place] [address] 10/22/2024 Lis Hemann Post-traumatic stres s disorder, chronic F43.12 ; Generalized anxiety disorder F41.1 and Depressed bipolar disorder F31.9 [facility] [address] [place] [address] 11/04/2024 Lis Hemann Post-traumatic stres s disorder, chronic F43.12 ; Generalized anxiety disorder F41.1 and Depressed bipolar disorder F31.9 [facility] [address] [facility] [address] [place] [address] 11/18/2024 Candice Machado Primary insomnia F51 .01 ; Depressed bipolar disorder F31.9 ; Encounter for screening for depression Z13.31 ; Generalized anxiety disorder F41.1 ; Post-traumatic stress disorder, chronic F43.12 ; Other intermediate (current) drug therapy Z79.899 ; Excoriation (skin-picking) disorder F42.4 ; Drug induced subacute dyskinesia G24.01 and Dry mouth R68.2 [facility] [address] [place] [address] 11/18/2024 Lis Hemann Generalized anxiety disorder F41.1 and Post-traumatic stress disorder, chronic F43.12 [facility] [address] [place] [address] 12/08/2024 Lis Hemann Generalized anxiety disorder F41.1 and Post-traumatic stress disorder, chronic F43.[address] [address] 12/23/2024 Lis Hemann Post-traumatic stres s disorder, chronic F43.12 and Generalized anxiety disorder F41.[address] [address] 01/08/2025 Lis Hemann Generalized anxiety disorder F41.[address] [address] 01/19/2025 Lis Hemann Post-traumatic stres s disorder, chronic F43.[address] [address] 04/08/2024 Candice Machado Bipolar disorder, unspecified F31.[address] [address] 09/12/2024 Lis Hemann Assessments Encounter Date Diagnosis [...] 06/30/2024 Depressed bipolar disorder (ICD-10 - F31.9) 02/25/2024 [...] 12/08/2024 Generalized anxiety disorder (ICD-10 - F41.1) 12/23/2024 Generalized anxiety disorder (ICD-10 - F41.1) 12/23/2024 Post-traumatic stress disorder, chronic (ICD-10 - F43.12) 01/08/2025 Generalized anxiety disorder (ICD-10 - F41.1) 01/19/2025 Post-traumatic stress disorder, chronic (ICD-10 - F43.12) [...] in [facility]ONOS[facility] (08/04/2014) 12 12/08/2024 Post-traumatic stress disorder, chronic (ICD-10 - F43.12) 11/18/2024 Post-traumatic stress disorder, chronic (ICD-10 - [...] 02/25/2024 Generalized anxiety disorder (ICD-10 - F41.1) 07/28/2024 [...] 06/30/2024 Excoriation (skin-picking) disorder (ICD-10 - F42.4) 02/28/2024 [...] in [facility] (08/04/2014) 12 11/18/2024 Post-traumatic stress disorder, [...] requiring hospitalization and discontinue treatment 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 Long-term drug therapy 02/28/2024 Other intermediate (current) drug therapy (ICD-10 - Z79.899) Medication [...] mouth . 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 (ICD-10 - Z79.899) Medication [...] [facility] (08/04/2014) 12 08/18/2024 Other intermediate (current) drug therapy (ICD-10 - Z79.899) Medication [...] and photosensitivity.Seriou s reactions include: Rash, severe; Christian Cem syndrome; toxic epidermal necrosis;injury edema, hypersensitivity [...] movement 06/08 educated on medication AIMS= 12/26/21 AIMS= 2 08/18/24 missing teeth and [...] Plan Of Treatment Next Appt Details Provider Name:Candice Machado , 02/04/2025 08:30:00 AM, [address], [place] [address], [place], [address], Provider Name:Lis Garciadavid, 02/04/2025 09:00:00 AM, [address], [facility] [address], [place], [address], Provider Name:Lis Garciadavid, 02/24/2025 09:00:00 AM, [address], [facility] [address], [place], [address], Provider Name:Lis Garciadavid, 03/06/2025 10:00:00 AM, [address], [place] [address], [place], [address], Provider Name:Lis Garciadavid, 03/26/2025 10:00:00 AM, [facility] [address], [place] [address], [place], [address], Provider Name:Lis Rodríguez, 04/09/2025 10:00:00 AM, [facility] [address], [place] [address], [place], [address], Insurance Providers Payer Name Payer Address Payer Phone Subscriber Number Group Number Insured Name Patient Relationship to Insured Coverage Start Date Coverage End Date [facility] P[facility] [address] [place] [address] [id number] FREDDY LIN Self - patient is the insured Medicaid-I l Medicaid [address] [address] [place] [address] [id number] FREDDY LIN Self - patient is the insured Medical (General) History Medical History History ICD Code Problems: Chronic post-traumatic stress disorder Cortical blindness Generalized anxiety disorder History of eating disorder Long-term drug therapy Mild bipolar disorder Movement disorder Overweight Primary insomnia Repetitive self-excoriation Severe depressed bipolar I disorder with psychotic features Suicidal thoughts Tardive dyskinesia ,
== END 2025-01-22 07:27 | disposition home or self-care (01) ==
LOC: ANHFOHIMG 07:26
PROVIDERS: PCP Internal Medicine; Visit Provider Obstetrics & Gynecology
DX: Z12.31 Encounter for screening mammogram for malignant neoplasm of breast (principal); N64.89 Other specified disorders of breast
CPT/HCPCS: 77063; 77067

== ENCOUNTER 2025-02-02 11:28 | Outpatient (CLI) | payer BC, MEDICAID, SELFPAY ==
--- NOTE | ~2025-02-02 | MMUS_ITS ---
EXAMINATION: MM diagnostic melani LT w donna, US breast LT limited INDICATION: 54-year old female; BI-RADS 0, callback from screening to evaluate left breast asymmetry. COMPARISON: 01/22/2025 through 03/10/2019 TECHNIQUE: Digital breast tomosynthesis True lateral and spot compression CC and MLO views of the LEFT breast were obtained with computer-aided detection to assist in interpretation of the study. FINDINGS: There are scattered areas of fibroglandular density. The asymmetry of concern in the superior, posterior third in the left breast effaces on spot compression views compatible with superimposition of fibroglandular tissue. LEFT BREAST ULTRASOUND FINDINGS: Targeted evaluation of the area of concern was completed. No suspicious solid or cystic mass seen. IMPRESSION: LEFT breast asymmetry of concern represents superimposition of fibroglandular tissue. RECOMMENDATION: Annual screening mammography in 12 months. BI-RADS 2, BENIGN Reviewed, dictated and finalized at location B. N WHEEL ASSEMBLER IMPRESSION: LEFT breast asymmetry of concern represents superimposition of fibroglandular t issue. RECOMMENDATION: Annual screening mammography in 12 months. BI-RADS 2, BENIGN
== END 2025-02-02 11:29 | disposition home or self-care (01) ==
PROVIDERS: PCP Internal Medicine; Visit Provider Obstetrics & Gynecology
DX: R92.8 Other abnormal and inconclusive findings on diagnostic imaging of breast (principal)
CPT/HCPCS: 76642; 77061; 77065; G0279

== ENCOUNTER 2025-03-16 08:45 | Outpatient (CLI) | payer BC, MEDICAID, SELFPAY ==
--- OUTSIDE RECORDS SUMMARY | 2025-03-16 08:51 | XMS_ITS | Clinical Summary ---
Author Organization [facility] [address] Address [address] [place] [address] Care Team Providers Care Dinker Name Role Phone Luc Munoz Primary Care Provider [phone] Allergies Active Allergy Reactions Criticality Noted Date [...] 2 (two) times a day Active vit C,M-Px-jnepu-lutei n-zeaxan 622-478-07-1 tt-yfyd-ps-mg capsule Take by mouth 2 (two) times [...] 60 tablet 11 11/09/19 21 Active carboxymethyl-gly- yfjc93-CM 0.5-1-0.5 % dropperette Administer into affected eye(s) [...] 8 tablet 11 08/26/19 25 025 Active Problems Problem Noted Date Diagnosed Date Dizziness and giddiness 05/17/2020 Assessment & Plan (05/17/2020 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 Assessment & Plan (05/17/2020 2:05 PM LABORATORY ENGINEER): Patient had adverse effects with propranolol prescribed [...] similar to what she has had in [facility] but she still having them [...] have on her headache, but I did travel counselor her that potentially it could exacerbate [...] pancreatitis or GERD. She will see her security installer in January. 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
--- OUTSIDE RECORDS SUMMARY | 2025-03-16 08:51 | XMS_ITS | Clinical Summary ---
Author Organization [facility] Address [address] [place] [address] Care Team Providers Care General Activities Therapist Name Role Phone Unavailable Primary Care Provider [...]
--- OUTSIDE RECORDS SUMMARY | 2025-03-16 08:51 | XMS_ITS | Clinical Summary ---
Author Organization [facility] Address [address], [address] [address] Phone Care Team Providers Care Reclamation Kettle Tender Name Role Phone Mono Magaña DO Primary Care Provider [phone] Allergies Active Allergy Reactions Criticality Noted Date [...] as directed. Active nystatin-triamcin olone (MYCOLOG II) 302605-9.1 UNIT/GM-% Cream Apply 3 times daily. Affected [...] MG Tablet Take by mouth. Active Pancrelipase, Mwh-Ncvc-Kxvv, 98289-[address] units Capsule DR Particles Take 2 Caps [...] Discontinued 2008, 03/19/2001 Human Papillomavirus (HPV) Immunization (No Doses Required) Completed Meningococcal Immunization (ACWY) Aged Out No longer [...] Relevant to Health Maintenance Insurance MEDICAID [place] [address] Care Teams Reclamation Kettle Tender Relationship Specialty Start Date End Date Mono Magaña DO [address] [facility] [address] [place] [address] PCP - General Internal Medicine 10/24/18
--- OUTSIDE RECORDS SUMMARY | 2025-03-16 08:51 | XMS_ITS | Clinical Summary ---
Author Organization [facility] Address [address] [place] [address] Care Team Providers Care Superintendent Transportation Name Role Phone Lucio Nicole MD Primary Care Provider [phone] Cyrus Bailey MD Unavailable [phone] Source Comments [facility],non-owned Affiliates and Associated Physician Practices is amultiple site organization consisting of ambulatory clinics and hospital sitesin [place], [place], [place] and [place]. This disclosure is being madepursuant to the Care Everywhere program and may not contain all information available regarding this patient. Last updated 17.[facility] Allergies Active Allergy Reactions Criticality [...] 4 times daily. 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 on file Not [...] 2 - PCV) 1989 PAP SMEAR 07/22/1991 DIABETES-SERUM CREATININE 08/06/2011 08/05/2010 ZOSTER VACCINE (1 of 2) 2020 DIABETES RETINOPATHY SCREENING 05/02/2021 01/25/2016 DIABETES-FOOT EXAM WITH MONOFILAMENT 05/02/2021 DIABETES-HGB A1C 05/02/2021 DEPRESSION SCREENING 03/19/2024 DIABETES - URINE PROTEIN SCREENING 03/19/2024 COVID-19 VACCINE (1 - 2024-2 6 season) 2024 INFLUENZA VACCINE (#1) 2024 12/17/2001 [...] LABORATORY Chloride 107 98 - 107 mmol/L [facility] BUN 11 7 - 17 mg/dl [facility] Creatinine 0.49(L) 0.52 - 1.04 mg/dl [facility] Glucose 95 65 - 105 mg/dl [facility] Calcium 9.6 8.4 - 10.2 mg/dl [facility] Alkaline Phosphatase 104 38 - 126 U/L [facility] AST 39 8 - 39 U/L [facility] Bilirubin Total 0.4 0.2 - 1.3 mg/dl [facility] Protein Total 6.9 6.3 - 8.2 gm/dl [facility] Albumin 4.1 3.9 - 5.0 gm/dl [facility] CO2 25 22 - 30 mmol/L [facility] ALT 17 9 - 52 U/L [facility] eGFR by MDRD 140 >60 mL/min/1.7 3m2 [facility] Comment eGFR [facility] Comment: The eGFR does not apply to patients who are younger than 18 or older than 70. BLOOD SPECIMEN / Unknown 08/05/2010 9:28 PM CDT 08/05/2010 9:39 PM CDT Sean Bolton DO LAB - CHEMISTRY ORDERABLES Fin al Result Performing Organization Address City/State/[facility] Co de Phone Number [facility] [address] [place] [address] from Last 3 Months or Most Recently Relevant to Health Maintenance Insurance [facility] MEDICAID - OUT OF STATE [facility] MED[facility] - [place] [facility] [place] - [place] Advance Directives * Full Code (Latest Code Status on File) Date Activated Date Inactivated Comments 08/06/2010 2:02 AM 08/13/2010 4:27 AM Care Teams Superintendent Transportation Relationship Specialty Start Date End Date Lucio Nicole MD [address] [place] [address] PCP - General 08/05/10 Cyrus Bailey MD [address] [place] [address] Referring Physician Orthopedic Surgery 06/09/14
--- OUTSIDE RECORDS SUMMARY | 2025-03-16 08:52 | XMS_ITS | Patient Health Record ---
Author Organization [facility] Address [address] [place] [address] Care Team Providers Care Health Center Manager Name Role Phone Luc Munoz DO Primary Care Provider Candice Chanel Unavailable [phone] Lis Rodríguez Unavailable [phone] Allergies Allergen (clinical drug ingredient) Drug/Non Drug [...] Duration) Notes Start Date End Date Status Bepreve 1.5 % Solution Ophthalmic 07/30/2023 Active lamoTRIgine 200 MG Tablet 1 tablet Oral twice a day; Duration: 30 days 02/04/2025 Active clonazePAM 0.5 MG Tablet 1 tablet Oral four times a day; Duration: 30 days 02/04/2025 Active Venlafaxine HCl ER 75 MG Capsule Extended Release 24 Hour 1 capsule in the morning Oral Once a day; Duration: 30 days 02/04/2025 Active Sertraline HCl 100 MG Tablet 1 tablet Oral Once a day; Duration: 30 days 02/04/2025 Active Phenazopyridine HCl 100 MG Tablet Oral 07/30/2023 Active Metoclopramide HCl 5 MG/5ML Solution Oral 07/30/2023 Active Acyclovir 800 MG Tablet Oral 07/30/2023 Active Clobetasol Propionate 0.05% Cream External 07/30/2023 Active Sertraline HCl 50 MG Tablet 1 tablet Oral Once a day; Duration: 30 days Active metroNIDAZOLE 500 MG Tablet Oral 07/30/2023 Active Ipratropium [place] 0.06 % Solution Nasal 07/30/2023 Active Calcitriol 0.25 MCG Capsule Oral 07/30/2023 Active Albuterol Sulfate (2.5 MG/3ML) 0.083% Nebulization Solution Inhalation 07/30/2023 Active Promethazine HCl 12.5 MG Tablet Oral 07/30/2023 Active traZODone HCl 100 MG Tablet 1 tablet Oral bedtime; Duration: 30 days 02/04/2025 Active Cholecalciferol 1.25 MG (28637 UT) Capsule Oral 07/30/2023 Active Linzess 290 MCG Capsule Oral 07/30/2023 Active Meclizine HCl 12.5 MG Tablet Oral 07/30/2023 Active EMGALITY PEN 120 MG/ML SUBCUTANEOUS PEN INJECTOR *Reorder from [facility] for eRx and Interaction Alerts* 07/30/2023 Active Nystop 133246 UNIT/GM Powder External 07/30/2023 Active traZODone HCl 100 MG Tablet 1 tablet Oral bedtime; Duration: 30 days Active Ezetimibe 10 MG Tablet Oral 07/30/2023 Active Vraylar 3 MG Capsule 1 capsule Oral Once a day; Duration: 90 days PA approved 03/10/24-04/09/25 04/09/2024 Active Sodium Fluoride 1.1 % Dental Paste *Reorder from [facility] for eRx and Interaction Alerts* 07/30/2023 Active lamoTRIgine 200 MG Tablet 1 tablet Oral twice a day; Duration: 30 days Active Norethindrone 0.35 MG Tablet Oral 07/30/2023 Active Nystatin-Triamcinolon e 565847-4.1 UNIT/GM Cream External 07/30/2023 Active Trulance 3 MG Tablet Oral 07/30/2023 Active Tamsulosin HCl 0.4 MG Capsule Oral 07/30/2023 Active Clotrimazole-Betameth asone 1-0.05 % Cream External 07/30/2023 Active Vraylar 3 mg Capsule take one capsule daily Oral daily; Duration: 30 days 02/04/2025 Active Trimethoprim 100 MG Tablet Oral 07/30/2023 Active Benzonatate 200 MG Capsule Oral 07/30/2023 Not-Taking Sucralfate 1 GM Tablet Oral 07/30/2023 Active Azelastine HCl 0.05 % Solution Ophthalmic 07/30/2023 Active traMADol HCl 50 MG Tablet Oral 07/30/2023 Active Fluticasone Propionate Diskus 50 MCG/ACT Aerosol Powder Breath Activated Inhalation *Reorder from [facility] for eRx and Interaction Alerts* 07/30/2023 Active Nurtec 75 MG Tablet Disintegrating Oral *Reorder from [facility] for eRx and Interaction Alerts* 07/30/2023 Active Terbinafine HCl 250 MG Tablet Oral 07/30/2023 Active Dicyclomine HCl 20 MG Tablet Oral 07/30/2023 Active Premarin 1.25 MG Tablet Oral 07/30/2023 Active Mupirocin 2% Ointment External 07/30/2023 Active Advair Diskus 250-50 MCG/DOSE Aerosol Powder Breath Activated Inhalation 07/30/2023 Active Ondansetron 8 MG Tablet Disintegrating Oral 07/30/2023 Active Melatonin 10 mg Tablet Oral 07/30/2023 Active Tolnaftate 1 % Powder External 07/30/2023 Active PreviDent 5000 Plus 1.1 % Cream Dental 07/30/2023 Active Fludrocortisone Acetate 0.1 MG Tablet Oral 07/30/2023 Active Rosuvastatin Calcium 40 MG Tablet Oral 07/30/2023 Active Montelukast Sodium 10 MG Tablet Oral 07/30/2023 Active HYDROcodone-Acetamino phen 5-325 MG Tablet Oral 07/30/2023 Active Xiidra 5 % Solution Ophthalmic 07/30/2023 Active Jublia 10 % Solution External 07/30/2023 Active Zenpep 10,000-32,000 -42,000 unit CAPSULE,DELAYED RELEASE (ENTERIC COATED) ORAL *Pick strength-form from [facility] for eRX* 07/30/2023 Active Ergocalciferol 1.25 MG (16896 UT) Capsule Oral 07/30/2023 Active Diclofenac Sodium 0.1 % Solution Ophthalmic 07/30/2023 Active Immunizations Vaccine Route Administration Date Status Comme nts Influenza, seasonal, injecta ble, preservative free, 3 yrs and above Unknown 12/17/2001 Administered Influenza, unspecified formulation Unknown 08/16/2011 A dministered Novel [id number], preservative free Unknown 05/08/2014 Administered Pfizer Biontech [...] W/U Status Risk Notes Problem Bipolar disorder (12451633) Other bipolar disorder (F31.89) 07/30/19 Active confirmed Problem Bipolar disorder (84216297) Bipolar disorder, unspecified (F31.9) Active confirmed Problem Generalized anxiety disorder (19780551) Generalized anxiety disorder (F41.1) 07/30/19 Active confirmed Problem Posttraumatic stress disorder (28992734) Post-traumatic stress disorder, chronic (F43.12) 07/30/19 Active confirmed Problem Primary insomnia (4570481) Primary insomnia (F51.01) 07/30/19 Active confirmed Problem Drug-induced tardive dystonia (038654131) Drug induced subacute dyskinesia (G24.01) 07/30/19 Active confirmed Problem Screening for cardiovascular system disease (522174548) Encounter for screening for cardiovascular disorders (Z13.6) Active confirmed Problem Long-term current use of drug therapy (896501894) Other terminal operator (current) drug therapy (Z79.899) 07/30/19 Active confirmed Problem Psychogenic skin symptoms (363887057) Excoriation (skin-picking) disorder (F42.4) 07/30/19 Active confirmed Problem Depression Screening (502170441) Encounter for screening for depression (Z13.31) Active confirmed Problem Bipolar disorder (92199360) Depressed bipolar disorder (F31.9) Active confirmed Problem Dry mouth (84198592) Dry mouth (R68.2) Active confirmed Vital Signs Heart Rate 85 /min 02/04/2025 Respiratory Rate 16 /min 02/04/2025 Height-cm 160.02 cm 02/04/2025 Blood pressure diastolic 74 mm Hg 02/04/2025 Weight-kg 111.13 kg 11/18/2024 Height 63.00 in 02/04/2025 Blood pressure systolic 115 mm Hg 02/04/2025 Weight 245 lbs 11/18/2024 BMI 43.4 kg/m2 11/18/2024 Encounters Encounter Location Date Provider Diagnosis [facility] [address] [address] 04/07/2024 Lis Hemdavid Post-traumatic stres s disorder, chronic F43.12 ; Depressed bipolar disorder F31.9 ; Generalized anxiety disorder F41.1 and Excoriation (skin-picking) disorder F42.4 [facility] [employer] [address] 05/26/2024 Candice Machado Generalized anxiety disorder F41.1 ; Depressed bipolar disorder F31.9 ; Primary insomnia F51.01 ; Post-traumatic stress disorder, chronic F43.12 ; Other terminal operator (current) drug therapy Z79.899 ; Excoriation (skin-picking) disorder F42.4 ; Drug induced subacute dyskinesia G24.01 and Dry mouth R68.2 [facility] [place] [id number] [facility] [address] [address] 06/23/2024 Lis Hemdavid Post-traumatic stres s disorder, chronic F43.12 ; Depressed bipolar disorder F31.9 ; Generalized anxiety disorder F41.1 and Excoriation (skin-picking) disorder F42.4 [facility] [address] 06/30/2024 Lis Hemdavid Post-traumatic stres s disorder, chronic F43.12 ; Depressed bipolar disorder F31.9 ; Generalized anxiety disorder F41.1 and Excoriation (skin-picking) disorder F42.4 [place] [address] [address] 07/28/2024 Lis Hemann Post-traumatic stres s disorder, chronic F43.12 ; Generalized anxiety disorder F41.1 and Depressed bipolar disorder F31.9 [place] [address] [address] 08/18/2024 Candice Machado Encounter for screen ing for depression Z13.31 ; Depressed bipolar disorder F31.9 ; Encounter for screening for cardiovascular disorders Z13.6 ; Generalized anxiety disorder F41.1 ; Primary insomnia F51.01 ; Post-traumatic stress disorder, chronic F43.12 ; Other terminal operator (current) drug therapy Z79.899 ; Excoriation (skin-picking) disorder F42.4 ; Drug induced subacute dyskinesia G24.01 and Dry mouth R68.2 [place] [address] [address] 08/18/2024 Lis Hemann Post-traumatic stres s disorder, chronic F43.12 ; Generalized anxiety disorder F41.1 and Depressed bipolar disorder F31.9 [place] [address] [address] 09/12/2024 Lis Hemann Post-traumatic stres s disorder, chronic F43.12 ; Generalized anxiety disorder F41.1 and Depressed bipolar disorder F31.9 [place] [address] [address] 10/03/2024 Lis Hemann Post-traumatic stres s disorder, chronic F43.12 ; Generalized anxiety disorder F41.1 and Depressed bipolar disorder F31.9 [place] [address] [address] 10/07/2024 Lis Hemann Post-traumatic stres s disorder, chronic F43.12 ; Generalized anxiety disorder F41.1 and Depressed bipolar disorder F31.9 [place] [address] [address] 10/22/2024 Lis Hemann Post-traumatic stres s disorder, chronic F43.12 ; Generalized anxiety disorder F41.1 and Depressed bipolar disorder F31.9 [place] [address] [address] 11/04/2024 Lis Hemann Post-traumatic stres s disorder, chronic F43.12 ; Generalized anxiety disorder F41.1 and Depressed bipolar disorder F31.9 [facility] [address] [place] [address] 11/18/2024 Candice Thery Primary insomnia F51 .01 ; Depressed bipolar disorder F31.9 ; Encounter for screening for depression Z13.31 ; Generalized anxiety disorder F41.1 ; Post-traumatic stress disorder, chronic F43.12 ; Other halfway (current) drug therapy Z79.899 ; Excoriation (skin-picking) disorder F42.4 ; Drug induced subacute dyskinesia G24.01 and Dry mouth R68.2 [facility] [address] [place] [address] 11/18/2024 Lis Hemann Generalized anxiety disorder F41.1 and Post-traumatic stress disorder, chronic F43.12 [facility] [address] [place] [address] 12/08/2024 Lis Hemann Generalized anxiety disorder F41.1 and Post-traumatic stress disorder, chronic F43.12 [facility] [address] [place] [address] 12/23/2024 Lis Hemann Post-traumatic stres s disorder, chronic F43.12 and Generalized anxiety disorder F41.1 [facility] [address] [place] [address] 01/08/2025 Lis Hemann Generalized anxiety disorder F41.1 [facility] [address] [place] [address] 01/19/2025 Lis Hemann Post-traumatic stres s disorder, chronic F43.12 [facility] [address] [place] [address] 02/04/2025 Lis Hemann Post-traumatic stres s disorder, chronic F43.12 and Generalized anxiety disorder F41.1 [facility] [address] [place] [address] 02/04/2025 Candice Thery Primary insomnia F51 .01 ; Depressed bipolar disorder F31.9 ; Encounter for screening for depression Z13.31 ; Generalized anxiety disorder F41.1 ; Post-traumatic stress disorder, chronic F43.12 ; Other halfway (current) drug therapy Z79.899 ; Excoriation (skin-picking) disorder F42.4 ; Drug induced subacute dyskinesia G24.01 and Dry mouth R68.[address] [address] 02/24/2025 Lis Rodríguez Bipolar disorder, unspecified F31.9 and Generalized anxiety disorder F41.[address] [address] 02/24/2025 Candice Jeannette Primary insomnia F51 .01 ; Depressed bipolar disorder F31.9 ; Encounter for screening for depression Z13.31 ; Generalized anxiety disorder F41.1 ; Post-traumatic stress disorder, chronic F43.12 ; Other halfway (current) drug therapy Z79.899 ; Excoriation (skin-picking) disorder F42.4 ; Drug induced subacute dyskinesia G24.01 and Dry mouth R68.[address] [address] 04/08/2024 Candice Machado Bipolar disorder, unspecified F31.[address] [address] 09/12/2024 Lis Rodríguez Assessments Encounter Date Diagnosis [...] Post-traumatic stress disorder, chronic (ICD-10 - F43.12) 04/07/2024 Depressed bipolar disorder (ICD-10 - F31.9) 06/23/2024 Post-traumatic stress disorder, chronic (ICD-10 - F43.12) 06/23/2024 Depressed bipolar disorder (ICD-10 - F31.9) 06/30/2024 Post-traumatic stress disorder, chronic (ICD-10 - F43.12) 06/30/2024 Depressed bipolar disorder (ICD-10 - F31.9) 07/28/2024 [...] Post-traumatic stress disorder, chronic (ICD-10 - F43.12) 02/04/2025 Primary insomnia (ICD-10 - F51.01) Insomnia: Care [...] therapy reviewed in [facility] COLONOSCOPY (08/04/2014) 12 02/04/2025 Post-traumatic stress disorder, chronic (ICD-10 - F43.12) 02/24/2025 Bipolar disorder, unspecified (ICD-10 - F31.9) 02/24/2025 Primary insomnia (ICD-10 - F51.01) Insomnia: Care Instructions material was published, [facility] Sleeping Well material was published, Insomnia: Care Instructions material was published, [facility] Sleeping Well material was published no refills needed today 1. bipolar disorder - wants 30 days refills only r/t co-pays Vraylar [...] reviewed in [facility] COLONOS[facility] (08/04/2014) 12 02/24/2025 Encounter for screening for depression (ICD-10 - Z13.31) no refills needed today 1. bipolar disorder - wants 30 days refills only r/t co-pays Vraylar [...] reviewed in [facility] COLONOSCOPY (08/04/2014) 12 02/24/2025 Depressed bipolar disorder (ICD-10 - F31.9) Bipolar Disorder: Care Instructions material was published, Learning About How to Get Help During a Mental Health Crisis material was published, [facility] About Movement Disorders From Antipsychotic Medicines material was published, [facility] Mood Disorders material was published no refills needed today 1. bipolar disorder - wants 30 days refills only r/t co-pays Vraylar [...] reviewed in [facility] COLONOSCOPY (08/04/2014) 12 02/04/2025 Generalized anxiety disorder (ICD-10 - F41.1) 02/24/2025 Generalized anxiety disorder (ICD-10 - F41.1) 11/18/2024 Encounter for screening for depression (ICD-10 [...] reviewed in [facility]ONOS[facility] (08/04/2014) 12 02/04/2025 Depressed bipolar disorder (ICD-10 - F31.9) Bipolar [...] dry mouth . Long-term drug therapy 07/28/2024 Generalized anxiety disorder (ICD-10 - F41.1) [...] 04/07/2024 Generalized anxiety disorder (ICD-10 - F41.1) 04/07/2024 Excoriation (skin-picking) disorder (ICD-10 - F42.4) [...] 06/30/2024 Excoriation (skin-picking) disorder (ICD-10 - F42.4) 07/28/2024 [...] reviewed in [facility]ONOS[facility] (08/04/2014) 12 02/04/2025 Encounter for screening for depression (ICD-10 - [...] reviewed in [facility] COLONOSCOPY (08/04/2014) 12 02/24/2025 Generalized anxiety disorder (ICD-10 - F41.1) Learning About Generalized Anxiety Disorder material was published, Generalized Anxiety Disorder: Care Instructions material was published, Learning About Anxiety Disorders material was published no refills needed today 1. bipolar disorder - wants 30 days refills only r/t co-pays Vraylar [...] reviewed in [facility] COLONOSCOPY (08/04/2014) 12 02/24/2025 Post-traumatic stress disorder, chronic (ICD-10 - F43.12) Post-Traumatic Stress Disorder (PTSD): Care Instructions material was published no refills needed today 1. bipolar disorder - wants 30 days refills only r/t co-pays Vraylar [...] reviewed in [facility] COLONOSCOPY (08/04/2014) 12 02/04/2025 Generalized anxiety disorder (ICD-10 - F41.1) Learning [...] mouth . Long-term drug therapy 05/26/2024 Other halfway (current) drug therapy (ICD-10 - Z79.899) Medication [...] and dry mouth . Long-term drug therapy 02/04/2025 Post-traumatic stress disorder, chronic (ICD-10 - F43.12) [...] in [facility]ONOS[facility] (08/04/2014) 12 11/18/2024 Other halfway (current) drug therapy (ICD-10 - Z79.899) Medication [...] reviewed in [facility]ONOS[facility] (08/04/2014) 12 02/24/2025 Other halfway (current) drug therapy (ICD-10 - Z79.899) Medication Refill: Care Instructions material was published no refills needed today 1. bipolar disorder - wants 30 days refills only r/t co-pays Vraylar [...] reviewed in [facility] COLONOSCOPY (08/04/2014) 12 02/24/2025 Excoriation (skin-picking) disorder (ICD-10 - F42.4) Learning About Skin Picking Disorder material was published, Obsessive-Comp ulsive Disorder: Care Instructions material was published, Learning About Skin Picking Disorder material was published no refills needed today 1. bipolar disorder - wants 30 days refills only r/t co-pays Vraylar [...] reviewed in [facility] COLONOSCOPY (08/04/2014) 12 02/04/2025 Other halfway (current) drug therapy (ICD-10 - Z79.899) Medication [...] mouth . Long-term drug therapy reviewed in [facility] COLONOSCOPY (08/04/2014) 12 08/18/2024 Other terminal operator (current) drug therapy (ICD-10 - Z79.899) Medication [...] and dry mouth . Long-term drug therapy 02/04/2025 Excoriation (skin-picking) disorder (ICD-10 - F42.4) Learning [...] in [facility]ONOS[facility] (08/04/2014) 12 11/18/2024 Drug induced subacute dyskinesia (ICD-10 - [...] reviewed in [facility]ONOS[facility] (08/04/2014) 12 02/24/2025 Drug induced subacute dyskinesia (ICD-10 - G24.01) Tardive Dyskinesia (TD): Care Instructions material was published no refills needed today 1. bipolar disorder - wants 30 days refills only r/t co-pays Vraylar [...] mouth . Long-term drug therapy reviewed in [facility] COLONOSCOPY (08/04/2014) 12 02/24/2025 Dry mouth (ICD-10 - R68.2) Dry Mouth: Care Instructions material was published no refills needed today 1. bipolar disorder - wants 30 days refills only r/t co-pays Vraylar [...] reviewed in [facility] COLONOSCOPY (08/04/2014) 12 02/04/2025 Drug induced subacute dyskinesia (ICD-10 - G24.01) [...] therapy reviewed in [facility] COLONOSCOPY (08/04/2014) 12 08/18/2024 Drug induced subacute [...] and dry mouth . Long-term drug therapy 02/04/2025 Dry mouth (ICD-10 - R68.2) Dry Mouth: [...] reviewed in [facility] COLONOSCOPY (08/04/2014) 12 Plan Of Treatment Next Appt Details Provider Name:Lis Rodríguez, 03/26/2025 10:00:00 AM, [address], [address], [address], Provider Name:Lis Rodríguez, 04/09/2025 10:00:00 AM, [address] [place] [address], [phone], Provider Name:Lis Rodríguez, 05/07/2025 10:00:00 AM, [address], [address], [address], Provider Name:Luisa de la rosa, 05/07/2025 11:15:00 AM, [address], [address], [address], Insurance Providers Payer Name Payer Address Payer Phone Subscriber Number Group Number Insured Name Patient Relationship to Insured Coverage Start Date Coverage End Date [employer] [facility] [employer] [address] [place] [address] [id number] FREDDY LIN Self - patient is the insured Medicaid-I l Medicaid [address] [address] [place] [address] [id number] FREDDY LIN Self - patient is the insured Medical (General) History Medical History History ICD Code Problems: Chronic post-traumatic stress disorder Cortical blindness Generalized anxiety disorder History of eating disorder Long-term drug therapy Mild bipolar disorder Movement disorder Overweight Primary insomnia Repetitive self-excoriation Severe depressed bipolar I disorder with psychotic features Suicidal thoughts Tardive dyskinesia ,
[2025-04-06 18:48] VITALS: BMI 43.7
--- NOTE | 2025-04-06 18:48 | WPDSLEEPSTUD ---
Sleep Study Date of Study: 03/16/25 Ordering Provider: ROCIO Velasquez Interpreting Physician: Abiola Page DO Sleep Study Type: Polysomnogram Height: 1.6 m Weight: 112.037 kg Body Mass Index: 43.7 Neck Circumference (inches): 16 Murdo: 10 Reason for Sleep Study Daytime hypersomnia PMFSH Past Medical History Medical History Sinus tarsi syndrome of left ankle Tarsal tunnel syndrome of left side Morbid obesity Hernia of abdominal wall Chronic RUQ pain Right knee DJD Left knee DJD Patellofemoral chondrosis Stress fracture Left foot pain Synovial cyst of popliteal space [Yuan], left knee Popliteal cyst Upper abdominal pain Nausea Vitamin D deficiency Seizures Last seizure 2016 Anxiety Zoster ophthalmicus Type 2 diabetes mellitus without complications Diet-controlled, previously on metformin Tendinitis of left rotator cuff Legal blindness Keratitis Hx of corneal abrasion Feeding by G-tube Refeeding via G-tube, removed 2014 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 Chronic UTI Chronic left shoulder pain Bilateral kidney stones B12 deficiency Adrenal insufficiency Generalized OA Inflammatory arthritis CAIT positive Patellofemoral pain syndrome Medial meniscus tear Back pain Dermatitis Chondromalacia of knee Discoid meniscus of knee Colon polyp Chronic pancreatitis Other fatigue Hyperlipidemia Dysphagia Chronic nausea High serum parathyroid hormone (PTH) Low vitamin D level Asthma Degenerative joint disease of right knee Kidney stones Constipation Stomach ulcer w/GIB Vertigo Herpes zoster Dizziness History of esophageal dilatation Blind in both eyes Anorexia with bulimia Depression Ankle fracture Lt. Osteoporosis Arthritis Abnormal uterine bleeding Fibroids Endometriosis s/p total hysterectomy GERD (gastroesophageal reflux disease) Hx of hiatal hernia IBS (irritable bowel syndrome) Bowel obstruction History of rectal polyps Gastroparesis Colitis History of angina Heart murmur Hypotension, chronic Bipolar 1 disorder Surgical History Surgical History History of oophorectomy MICHA. History of ankle surgery Lt. H/O left wrist surgery carpal tunnel History of lithotripsy History of hysterectomy Total hysterectomy History of cholecystectomy History of appendectomy Hx of cardiac cath x2. No cardiac stents History of tonsillectomy Family History Family History Sibling Family history of migraine headaches Mother Family history of cardiovascular disease Family history of hypercholesterolemia Hypertension Father Family history of primary malignant neoplasm of liver Family history of liver disease Family history of alcoholism Sibling No problems noted. Other Family history of cerebrovascular accident (CVA) Social History Social History Smoking packs per day: 0.5 Smoking cigarettes per day: 10.0 Years smoked: 4 Smoking pack-years: 2.00 Smoking status: Former smoker Tobacco type: cigarettes Second hand tobacco smoke exposure: No Smoking end date: 03/19/93 Alcohol intake: never Substance use: never Substance use type: does not use Lack of Transportation: No Lack of Food: Never True Current Housing: I Have Housing Concerned About Future Housing: No Difficulty Paying Gas/Electric Bills: No Difficulty Paying for Meds: No Currently Unemployed: No Education: Associate Degree Difficulty w/ Childcare or Family Care: No Living arrangements: with family Occupation/Education: unemployed Additional occupation/education comments: Disabled Gender identity (if verbalized by the patient): Female Spiritual care concerns: No Agree to blood products: Yes Medications Home Medications ?Medication ?Instructions ?Recorded ?Confirmed ?Type clonazepam 0.5 mg tablet 0.5 mg PO Q6H 01/17/19 03/30/25 History lamotrigine 200 mg tablet 200 mg PO BID 01/17/19 03/30/25 History lifitegrast 5 % eye drops in a 1 drop ophthalmic (eye) BID 01/17/19 03/30/25 History dropperette (Xiidra) tamsulosin 0.4 mg capsule 0.4 mg PO DAILY 01/17/19 03/30/25 History docusate sodium 100 mg capsule 100 mg PO QAM 09/12/21 03/30/25 History (Colace) polyethylene glycol 3350 17 17 g PO QAM PRN Constipation 09/12/21 03/30/25 History gram/dose oral powder (Miralax) rimegepant 75 mg disintegrating 75 mg PO ONCE PRN Headache 12/01/21 03/30/25 History tablet (Nurtec ODT) lactase 3,000 unit tablet (Lactaid) 3,000 unit PO ONCE PRN Lactose 03/21/22 03/30/25 History Intolerance famotidine 20 mg chewable tablet 20 mg PO BID 08/21/22 03/30/25 History venlafaxine 75 mg capsule,extended 75 mg PO DAILY 08/21/22 03/30/25 History release 24 hr galcanezumab-gnlm 120 mg/mL 120 mg subcut MONTHLY 01/16/23 03/30/25 History subcutaneous pen injector (Emgality Pen) trimethoprim 100 mg tablet 100 mg PO DAILY 01/16/23 03/30/25 History norethindrone (contraceptive) 0.35 0.35 mg PO DAILY 07/02/23 03/30/25 History mg tablet cariprazine 3 mg capsule (Vraylar) 3 mg PO DAILY 08/20/23 03/30/25 History sertraline 100 mg tablet 100 mg PO DAILY 12/03/23 03/30/25 History sertraline 50 mg tablet 50 mg PO DAILY 12/03/23 03/30/25 History clotrimazole-betamethasone 1 1 applic topical BID #45 grams 03/05/24 03/30/25 Rx %-0.05 % topical cream sucralfate 1 gram tablet See Rx Instructions .Route 03/13/24 03/30/25 Rx .COMPLEX #120 tabs ezetimibe 10 mg tablet (Zetia) 10 mg PO DAILY #90 tabs 03/27/24 03/30/25 Rx albuterol sulfate 2.5 mg/3 mL See Rx Instructions .Route 07/15/24 03/30/25 Rx (0.083 %) solution for nebulization .COMPLEX #180 mL acyclovir 800 mg tablet 800 mg PO TID shingles 09/08/24 03/30/25 History omeprazole 40 mg-sodium 1 cap PO BID #60 caps 09/08/24 03/30/25 Rx bicarbonate 1.1 gram capsule (Zegerid) cholecalciferol (vitamin D3) 1,250 50,000 unit PO 3XW 1 month #14 caps 09/26/24 03/30/25 Rx mcg (50,000 unit) capsule fludrocortisone 0.1 mg tablet See Rx Instructions .Route 12/01/24 03/30/25 Rx .COMPLEX #60 tabs calcitriol 0.25 mcg capsule See Rx Instructions .Route 01/05/25 03/30/25 Rx .COMPLEX #9 caps perfluorohexyloctane (PF) 100 % 1 drp EACH EYE QID 01/13/25 03/30/25 History eye drops (Miebo (PF)) montelukast 10 mg tablet See Rx Instructions .Route 02/02/25 03/30/25 Rx .COMPLEX #30 tabs nystatin 100,000 unit/gram topical See Rx Instructions .Route 02/09/25 03/30/25 Rx powder (Klayesta) .COMPLEX #60 grams ondansetron 8 mg disintegrating See Rx Instructions .Route 02/15/25 03/30/25 Rx tablet .COMPLEX #90 tabs fluticasone fur. 200 mcg-umeclid See Rx Instructions .Route 02/17/25 03/30/25 Rx 62.5 mcg-vilant 25 mcg .COMPLEX #60 ea inhalat.powder (Trelegy Ellipta) fluticasone propionate 50 2 spray intranasal DAILY PRN 02/17/25 03/30/25 Rx mcg/actuation nasal Allergy Symptoms #16 grams spray,suspension (Flonase Allergy Relief) plecanatide 3 mg tablet (Trulance) See Rx Instructions .Route 02/23/25 03/30/25 Rx .COMPLEX #90 tabs dicyclomine 20 mg tablet 20 mg PO ACHS #120 tabs 03/03/25 03/30/25 Rx fvhgfz-fxswrmov-bygglfu(pork)10,000-32,000-42,000 See Rx Instructions .Route 03/03/25 03/30/25 Rx unit capsule,del rel (Zenpep) .COMPLEX #200 caps metoclopramide HCl 5 mg/5 mL oral See Rx Instructions .Route 03/03/25 03/30/25 Rx solution .COMPLEX #1,200 mL promethazine 12.5 mg tablet See Rx Instructions .Route 03/03/25 03/30/25 Rx .COMPLEX #90 tabs albuterol 90 mcg-budesonide 80 See Rx Instructions .Route 03/09/25 03/30/25 Rx mcg/actuation HFA aerosol inhaler .COMPLEX #10.7 grams (Airsupra) rosuvastatin 40 mg tablet See Rx Instructions .Route 03/09/25 03/30/25 Rx .COMPLEX #90 tabs fenofibrate micronized 134 mg 134 mg PO DAILY #90 caps 03/30/25 03/30/25 Rx capsule Sleep Procedure A full night polysomnogram using the [employer] Sleep[employer] Style Finder multi-channel system recorded the standard physiologic parameters including EEG, EOG, submentalis EMG, anterior tibialis EMG, EKG, body position, nasal and oral airflow using nasal pressure sensor and thermistor.? Respiratory parameters of chest and abdominal movements were recorded with Respiratory Inductance Plethysmography belts. Oxygen saturation was recorded by pulse oximetry. Video monitoring was also performed. Sleep stages, periodic limb movements, and EEG arousals were scored in 30 second epochs according to the criteria of the AASM Scoring Manual. The Apnea-Hypopnea Index was calculated using [facility] guidelines for definition of hypopnea with 4% O2 desaturations while scoring respiratory events. Sleep Architecture The total recording time was 376.5 minutes.? The total sleep time was 170.0 minutes. Sleep latency was 42.8 minutes. REM latency was 171.0 minutes. Sleep efficiency was 45.2%. The patient had 6 awakenings for an awakening index of 2.1. Wake after sleep onset time was 163.5 minutes. The patient spent 8.0 minutes, 4.7% of total sleep time in Stage N1. The patient spent 64.5 minutes, 37.9% in Stage N2. The patient spent 91.5 minutes, 53.8% in Stage N3. The patient spent 6.0 minutes, 3.5% in Stage REM sleep. Respiratory Analysis The patient had 9 hypopneas, - obstructive apneas, - mixed apneas, and 2 central apneas for an overall Apnea Hypopnea Index of 3.9. The REM Apnea Hypopnea Index was 20.0. The NREM Apnea Hypopnea Index was 3.3. The patient had a Central Apnea Hypopnea Index of 0.7. There were - Respiratory Effort Related Arousals resulting in a RERA index of - events per hour. The Respiratory Disturbance Index is 4.2 events per hour. There was no evidence of Mahamed-Ortiz Respirations. Arousals There were 66 total arousals for an arousal index of 23.3. There were 41 spontaneous arousals for an index of 14.5. There were 8 arousals due to respiratory events for an index of 2.8. There were - arousals due to periodic limb movements for an index of -.? There were 17 arousals due to isolated limb movements for an index of 6.0. Periodic Limb Movements The patient had 34 isolated limb movements with an index of 12.0. The patient had 7 periodic limb movements with an index of 2.5. Patient had a total of 41 limb movements with a total limb movement index of 14.5. Oximetry Data The patient had an average oxygen saturation of 90.2% in sleep with a minimum oxygen saturation of 85.0% and a maximum oxygen saturation of 94.0%. The patient had 9 oxygen desaturations that were 4% or greater resulting in an Oxygen Desaturation Index of 3.2.? The patient spent [min] minutes, [%] of total sleep time with an oxygen saturation below 88%. Cardiac Profile The EKG showed normal sinus rhythm.? The patient had an average pulse rate of 85.9 bpm with a minimum pulse of rate of 76.0 bpm and a maximum pulse rate of 110.0 bpm.? EEG Profile No signs of seizure activity seen. Assessment and Plan Data The data obtained during this sleep study is adequate for interpretation. Certification This sleep study has been reviewed by a board certified sleep medicine physician.
== END 2025-03-17 04:30 | disposition home or self-care (01) ==
PROVIDERS: PCP Internal Medicine; Visit Provider Physician Assistant
DX: G47.10 Hypersomnia, unspecified (principal)
CPT/HCPCS: 95810